=== PATIENT | female | born 1930 | race American Indian/Alaskan Native ===

== ENCOUNTER 2016-12-07 08:00 | Inpatient (IN) | payer MEDICARE, OTHER ==
--- NOTE | 2016-12-07 08:41 | C.PDOC ---
History Of Present Illness 85 year old female presents to the ED accompanied by her family who states the patient appeared confused and had difficulty getting out of bed today. Patient states she felt fine yesterday and went to the gym however she started feeling generalized weakness in the afternoon and developed a mild cough. She has not taken anything for the symptoms and denies vomiting, diarrhea, urinary symptoms , or any other complaints at this time. Time Seen by Provider: 12/07/16 08:24 Chief Complaint (Nursing): Weakness/Neurological Deficit History Per: Patient, Family History/Exam Limitations: no limitations Onset/Duration Of Symptoms: Hrs Current Symptoms Are (Timing): Still Present Seizure Or Post-ictal Symptoms: None Past Medical History Reviewed: Historical Data, Nursing Documentation, Vital Signs Vital Signs: Last Vital Signs Temp 99.1 F 12/07/16 15:15 Pulse 75 12/07/16 15:15 Resp 21 12/07/16 15:15 BP 145/71 12/07/16 15:15 Pulse Ox 95 12/07/16 15:15 - Medical History PMH: Anemia, Arthritis (hx. back surgery; B/L TKR), COPD, HTN, Hypercholesterolemia, Parkinson's Disease - [facility] Procedures EXCISION OF DESCENDING COLON, ENDO, DIAGN (11/02/15) EXCISION OF ESOPHAGUS, ENDO, DIAGN (11/02/15) EXCISION OF STOMACH, ENDO, DIAGN (11/02/15) Family History: States: Unknown Family Hx - Social History Hx Tobacco Use: No Hx Alcohol Use: No Hx Substance Use: No - Immunization History Hx Tetanus Toxoid Vaccination: No Hx Influenza Vaccination: Yes Hx Pneumococcal Vaccination: Yes Review Of Systems Except As Marked, All Systems Reviewed And Found Negative. Constitutional: Positive for: Weakness Cardiovascular: Negative for: Chest Pain, Palpitations Respiratory: Positive for: Cough. Negative for: Shortness of Breath Gastrointestinal: Negative for: Nausea, Vomiting, Abdominal Pain, Diarrhea Genitourinary: Negative for: Dysuria, Frequency Musculoskeletal: Negative for: Back Pain Neurological: Positive for: Confusion Physical Exam - Physical Exam Appears: Non-toxic, No Acute Distress Skin: Normal Color, Warm, Dry Head: Atraumatic, Normacephalic Eye(s): bilateral: Normal Inspection Oral Mucosa: Moist Neck: Supple Chest: Symmetrical, No Deformity Cardiovascular: Rhythm Regular, No Murmur Respiratory: Decreased Breath Sounds (+Decreased breath sounds bilaterally), No Accessory Muscle Use, No Rales, No Rhonchi, No Wheezing Gastrointestinal/Abdominal: Soft, No Tenderness, No Distention, No Guarding, No Rebound Extremity: Normal ROM, No Deformity Neurological/Psych: Oriented x3, Normal Speech, Normal Cranial Nerves, Normal Motor, Normal Sensation, Slow To Respond With Command ED Course And Treatment - Laboratory Results Result Diagrams: 12/07/16 09:32 12/07/16 09:32 ECG: Interpreted By Me ECG Rhythm: Sinus Rhythm ECG Interpretation: No Acute Changes Rate From EC O2 Sat by Pulse Oximetry: 96 (Room air) Pulse Ox Interpretation: Normal - Radiology CXR: Viewed By Me, Read By Radiologist CXR Interpretation: Yes: Other (Mild venous congestion. Patchy increased markings at the left lung base with question trace left pleural effusion. Right infrahilar prominence. Linear atelectasis at the right lung base. Upper lobe granulomatous changes.) Progress Note: CXR, EKG, Blood work, and Urinalysis ordered and reviewed. Patient treated with Avelox, Azactam, Tylenol, and IV fluids. Medical Decision Making Medical Decision Making: Pt remained stable in the ED Code sepsis called, pt cultured and started on abx lactate not elevated results discussed with family Case discussed with dr bhakta Plan admission Disposition - Disposition Disposition: HOSPITALIZED Disposition Time: 11:47 Condition: SERIOUS - Clinical Impression Clinical Impression: Fever, Weakness generalized - Scribe Statement The provider has reviewed the documentation as recorded by the Scribe Portia Jenkins. Provider Attestation: All medical record entries made by the Scribe were at my direction and personally dictated by me. I have reviewed the chart and agree that the record accurately reflects my personal performance of the history, physical exam, medical decision making, and the department course for this patient. I have also personally directed, reviewed, and agree with the discharge instructions and disposition.
[2016-12-07] MEDS ORDERED: Sodium Chloride 0.9% 1,000 ML IV ONE ×2 (08:49→08:50)
[2016-12-07] MEDS ORDERED: Aztreonam 2 GM in Sodium Chloride 0.9% 100 ML IVPB STA (08:51)
[2016-12-07 09:36] LABS: BASO # 0.1 K/uL (0.0-0.2); BASO % 0.5 % (0.0-2.0); HEMATOCRIT 33.5 % (34.0-47.0); LYMPH # 0.9 K/uL (1.0-4.3); LYMPH % 9.4 % (20.0-40.0); MEAN CELL VOLUME 82.7 fL (81.0-99.0); MEAN CORPUSCULAR HEMOGLOBIN 26.5 pg (27.0-31.0); MEAN PLATELET VOLUME 7.1 fL (7.2-11.7); MONO # 0.5 K/uL (0.0-0.8); MONO % 4.7 % (0.0-10.0); PLATELET COUNT 249 K/uL (130-400); RED CELL DISTRIBUTION WIDTH 14.8 % (11.5-14.5)
[2016-12-07 09:40] LABS: VENOUS BLOOD GAS BASE EXCESS 0.1 mmol/L (0.0-2.0); VENOUS BLOOD GAS PCO2 35 mmHg (40-60); VENOUS BLOOD PH 7.44 (7.32-7.43)
[2016-12-07] MEDS ORDERED: Sodium Chloride 0.9% 1,000 ML ONE (09:45)
[2016-12-07 09:47] LABS: INR 1.1
[2016-12-07 09:48] LABS: WHITE BLOOD COUNT 10.1 K/uL (4.8-10.8)
[2016-12-07 09:50] LABS: POTASSIUM 4.3 mmol/L (3.6-5.2)
[2016-12-07 09:52] LABS: ALB/GLOB RATIO 1.1 (1.0-2.1); BILIRUBIN,TOTAL 0.8 mg/dL (0.2-1.3)
[2016-12-07 09:53] LABS: CALCIUM 9.2 mg/dl (8.6-10.4); MAGNESIUM 2.3 mg/dL (1.6-2.3); PHOSPHOROUS 2.6 mg/dL (2.5-4.5)
--- NOTE | 2016-12-07 09:57 | RAD ---
HISTORY: Sepsis Patient COMPARISON: 07/10/2015 FINDINGS: LUNGS: Mild venous congestion. Patchy increased markings at the left lung base with question trace left pleural effusion. Right infrahilar prominence. Linear atelectasis at the right lung base. Upper lobe granulomatous changes. PLEURA: As above. CARDIOVASCULAR: Calcification at the aortic knob. OSSEOUS STRUCTURES: No significant abnormalities. VISUALIZED UPPER ABDOMEN: Normal. OTHER FINDINGS: None. IMPRESSION: Mild venous congestion. Patchy increased markings at the left lung base with question trace left pleural effusion. Right infrahilar prominence. Linear atelectasis at the right lung base. Upper lobe granulomatous changes.
[2016-12-07 10:15] LABS: NEUTROPHIL 85 % (50-75); TOTAL CELLS COUNTED 100
[2016-12-07 10:53] LABS: RBC URINE 2 /hpf (0-3); URINE BACTERIA MANY (<OCC); URINE BILIRUBIN NEGATIVE (NEGATIVE); URINE BLOOD NEGATIVE (NEGATIVE); URINE COLOR Yellow (YELLOW); URINE GLUCOSE (UA) NORMAL (Normal); URINE KETONE NEGATIVE (NEGATIVE); URINE LEUKOCYTE ESTERASE 1+ Leu/uL (Negative); URINE PROTEIN NEGATIVE (NEGATIVE); URINE UROBILINOGEN NORMAL mg/dL (0.2-1.0); WBC URINE 26 /hpf (0-5)
[2016-12-07] MEDS ORDERED: guaiFENesin 100 mg/5 ml Syrup UD PO PRN (12:48)
[2016-12-07 12:51] LABS: VENOUS BLOOD GAS BASE EXCESS -2.1 mmol/L (0.0-2.0); VENOUS BLOOD GAS PCO2 31 mmHg (40-60); VENOUS BLOOD PH 7.44 (7.32-7.43)
[2016-12-07] MEDS ORDERED: Albuterol-Ipratrop 3 mg / 0.5 (3 ml) UD INH STA (13:36)
[2016-12-07] MEDS: Albuterol-Ipratrop 3 mg / 0.5 (3 ml) UD INH SCH ×2 (13:40→19:31)
[2016-12-07] MEDS ORDERED: Acetylcysteine 20% Inhal Soln (4ml) INH STA (13:41)
[2016-12-07] MEDS ORDERED: MethylPREDNISolone 40 mg Vial IVP STA (14:20)
[2016-12-07 14:49] LABS: ABG ALLEN TEST A; ARTERIAL BLOOD HGB O2 SAT 90.8 % (95.0-98.0); CARBOXYHEMOGLOBIN 1.8 % (0.5-1.5); DRAW SITE RRA; METHEMOGLOBIN 1.4 % (0.0-3.0)
[2016-12-07] MEDS ORDERED: Acetylcysteine 20% Inhal Soln (4ml) INH ONE (15:00)
[2016-12-07] MEDS: Fluticasone-Salmeterol 250-50mcg Diskus INH SCH (19:30)
[2016-12-07] MEDS ORDERED: MethylPREDNISolone 40 mg Vial IVP SCH (22:00)
[2016-12-08] MEDS: Albuterol-Ipratrop 3 mg / 0.5 (3 ml) UD INH SCH ×4 (01:02→19:59)
[2016-12-08] MEDS: Fluticasone-Salmeterol 250-50mcg Diskus INH SCH ×2 (07:26→19:59)
[2016-12-08 07:38] LABS: BASO % 0.2 % (0.0-2.0); HEMATOCRIT 32.2 % (34.0-47.0); LYMPH # 0.8 K/uL (1.0-4.3); LYMPH % 7.5 % (20.0-40.0); MEAN CELL VOLUME 82.9 fL (81.0-99.0); MEAN CORPUSCULAR HEMOGLOBIN 27.2 pg (27.0-31.0); MEAN CORPUSCULAR HGB CONC 32.8 g/dL (33.0-37.0); MEAN PLATELET VOLUME 7.3 fL (7.2-11.7); MONO # 0.2 K/uL (0.0-0.8); PLATELET COUNT 237 K/uL (130-400); RED CELL DISTRIBUTION WIDTH 14.7 % (11.5-14.5); WHITE BLOOD COUNT 10.6 K/uL (4.8-10.8)
[2016-12-08 07:57] LABS: POTASSIUM 3.9 mmol/L (3.6-5.2)
[2016-12-08 08:00] LABS: CALCIUM 9.1 mg/dl (8.6-10.4)
[2016-12-08 08:58] LABS: NEUTROPHIL 78 % (50-75); TOTAL CELLS COUNTED 100
[2016-12-08] MEDS: diltiaZEM 300 mg/24 Hours CD Cap PO SCH (09:39)
[2016-12-08] MEDS ORDERED: Enoxaparin 40 mg Syringe SC SCH (10:00)
--- NOTE | 2016-12-08 11:56 | CARD ---
APPROVED REPORT EKG Measurement Heart [id number] <Conclusion> Normal sinus rhythm Left axis deviation Abnormal ECG
[2016-12-08] MEDS ORDERED: Moxifloxacin IV 400mg/250ml NS 400 MG/250 ML BAG IVPB SCH (14:00)
[2016-12-08] MEDS: MethylPREDNISolone 40 mg Vial IVP SCH ×2 (14:27→22:28)
[2016-12-08] MEDS: Aztreonam 1 GM in Sodium Chloride 0.9% 100 ML IVPB SCH ×2 (14:27→22:26)
--- NOTE | 2016-12-08 16:57 | CP.PCM.CON ---
History of Present Illness - History of Present Illness History of Present Illness: INFECTIOUS DISEASE CONSULT; HPI; 85-year-old female with multiple medical problems including history of COPD, hypertension, hypercholesterolemia, parkinsonism, anemia, arthritis with history off back surgery, bilateral total knee replacements was admitted via the emergency room when the family brought her to the ER because of altered mental status and difficulty getting out of the bed this morning. As per family patient was all right day before and went to the gym with her daughter but then started feeling weak in the afternoon and also complained of dry cough. Patient denied any other symptoms off nausea or vomiting, diarrhea or abdominal pain. Patient also denied any dysuria or hesitancy.patient denied any sore throat, postnasal drip Patient was empirically started on IV Cipro 400 every 12 hourly and IV Azactam 1 g every 8 hourly. Infectious disease consultation requested by PMD as urine cultures came back positive for gram-negative nguyen. Chest x-ray on admission of 12/07/16 also showed patchy increased interstitial markings left lung with trace pleural effusion. Right parahilar prominence with right lower lobe atelectasis. Upper lobe granulomatous changes were also seen. Patient denies any previous history of TB or bronchiectasis. She does give history of UTI in the past but denies any history of kidney stones or bladder stones ALLERGIES; NKA. PMH: Anemia, Arthritis (hx. back surgery; B/L TKR), COPD, HTN, Hypercholesterolemia, Parkinson's Disease - [facility] Procedures EXCISION OF DESCENDING COLON, ENDO, DIAGN (11/02/15) EXCISION OF ESOPHAGUS, ENDO, DIAGN (11/02/15) EXCISION OF STOMACH, ENDO, DIAGN (11/02/15) Family History: States: Unknown Family Hx - Social History Hx Tobacco Use: No Hx Alcohol Use: No Hx Substance Use: No - Immunization History Hx Tetanus Toxoid Vaccination: No Hx Influenza Vaccination: Yes Hx Pneumococcal Vaccination: Yes Review of Systems - Constitutional Constitutional: Fever, Lethargy, Malaise, Weakness - EENT Ears: absent: Dizziness Nose/Mouth/Throat: Dry Mouth. absent: Sore Throat, Neck Pain - Cardiovascular Cardiovascular: Dyspnea on Exertion. absent: Chest Pain - Respiratory Respiratory: Cough. absent: Hemoptysis - Gastrointestinal Gastrointestinal: absent: Abdominal Pain, Diarrhea, Nausea, Vomiting - Genitourinary Genitourinary: Freq UTI. absent: Dysuria, Urinary Hesitance, Hx Renal/Bladder Calculi - Neurological Neurological: Confusion. absent: Headaches - Psychiatric Psychiatric: Confusion - Endocrine Endocrine: Fatigue - Hematologic/Lymphatic Hematologic: As Per HPI. absent: Easy Bruising, Lymphadenopathy Past Patient History - Infectious Disease Hx of Infectious Diseases: None - Past Medical History & Family History Past Medical History?: Yes - Past Social History Smoking Status: Never Smoked - CARDIAC Hx Congestive Heart Failure: Yes (Around 10 yrs ago) Hx Hypercholesterolemia: Yes Hx Hypertension: Yes - PULMONARY Hx Chronic Obstructive Pulmonary Disease (COPD): Yes - NEUROLOGICAL Hx Parkinson's Disease: Yes - HEENT Hx Cataracts: Yes (hx, cataract surgery 4 yrs ago) Other/Comment: wear eyeglasses - RENAL Hx Chronic Kidney Disease: No - ENDOCRINE/METABOLIC Hx Diabetes Mellitus Type 2: Yes - HEMATOLOGICAL/ONCOLOGICAL Hx Anemia: Yes - INTEGUMENTARY Hx Dermatological Problems: No - MUSCULOSKELETAL/RHEUMATOLOGICAL Hx Arthritis: Yes (hx. back surgery; B/L TKR) - GASTROINTESTINAL Hx Gastrointestinal Disorders: No - GENITOURINARY/GYNECOLOGICAL Hx Genitourinary Disorders: No - PSYCHIATRIC Hx Substance Use: No - SURGICAL HISTORY Hx Cataract Extraction: Yes Hx Joint Replacement: Yes (Bilateral knee replacement) Other/Comment: Back surgery (Bone fusion), Gallbladder surgery, skin graft surgery left leg, green filter placement - ANESTHESIA Hx Anesthesia: Yes Hx Anesthesia Reactions: No Hx Malignant Hyperthermia: No Meds Allergies/Adverse Reactions: Allergies Allergy/AdvReac Type Severity Reaction Status Date / Time Penicillins Allergy Verified 11/01/15 12:32 - Medications Medications: Current Medications Acetaminophen (Tylenol 325mg Tab) 650 mg PO Q6 PRN PRN Reason: Fever >100.4 F Last Admin: 12/07/16 12:46 Dose: 650 mg Albuterol/Ipratropium (Duoneb 3 Mg/0.5 Mg (3 Ml) Ud) 3 ml INH RQ6 [facility] Last Admin: 12/08/16 13:14 Dose: 3 ml Aspirin (Ecotrin) 81 mg PO DAILY [facility] Last Admin: 12/08/16 09:39 Dose: 81 mg Carbidopa/Levodopa (Sinemet) 1 tab PO DAILY [facility] Last Admin: 12/08/16 09:39 Dose: 1 tab Diltiazem HCl (Cardizem Cd) 300 mg PO DAILY [facility] Last Admin: 04/28/17 09:39 Dose: 300 mg Guaifenesin (Robitussin) 100 mg PO Q4H PRN PRN Reason: Cough Heparin Sodium (Porcine) (Heparin) 5,000 units SC Q12 [facility] Last Admin: 12/08/16 09:38 Dose: 5,000 units Ciprofloxacin (Cipro 400mg/200ml Dsw) 400 mg in 200 mls @ 133 mls/hr IVPB Q12H [facility] Aztreonam 1 gm/ Sodium (Chloride) 100 mls @ 100 mls/hr IVPB Q8H [facility] Last Admin: 12/08/16 14:27 Dose: 100 mls/hr Losartan Potassium (Cozaar) 100 mg PO DAILY [facility] Last Admin: 12/08/16 09:39 Dose: 100 mg Methylprednisolone (Solu-Medrol) 40 mg IVP Q8 [facility] Last Admin: 12/08/16 14:27 Dose: 40 mg Pantoprazole Sodium (Protonix Inj) 40 mg IVP DAILY [facility] Last Admin: 12/08/16 09:38 Dose: 40 mg Rosuvastatin Calcium (Crestor) 5 mg PO HS [facility] Last Admin: 12/07/16 21:25 Dose: 5 mg Fluticasone/Salmeterol (Advair Diskus 250/50) 1 puff INH RQ12 [facility] Last Admin: 12/08/16 07:26 Dose: 1 puff Physical Exam - Constitutional Appears: No Acute Distress - Head Exam Head Exam: NORMAL INSPECTION - Eye Exam Eye Exam: EOMI, PERRL - ENT Exam ENT Exam: Normal Oropharynx - Neck Exam Neck exam: Positive for: Normal Inspection. Negative for: Meningismus - Respiratory Exam Respiratory Exam: Prolonged Expiratory Phase, Rhonchi - Cardiovascular Exam Cardiovascular Exam: REGULAR RHYTHM, +S1, +S2 - GI/Abdominal Exam GI & Abdominal Exam: Normal Bowel Sounds, Soft. absent: Organomegaly, Tenderness - Extremities Exam Extremities exam: Positive for: pedal pulses present. Negative for: calf tenderness, pedal edema - Neurological Exam Neurological exam: Alert, CN II-XII Intact, Reflexes Normal - Psychiatric Exam Psychiatric exam: Normal Mood - Skin Skin Exam: Normal Color, Warm Results - Vital Signs Recent Vital Signs: Last Vital Signs Temp 97.6 F 12/08/16 15:50 Pulse 85 12/08/16 15:50 Resp 20 12/08/16 15:50 BP 154/70 H 12/08/16 15:50 Pulse Ox 94 L 12/08/16 15:50 - Labs Result Diagrams: 12/08/16 07:18 12/08/16 07:18 Labs: Laboratory Results - last 24 hr 12/08/16 12/08/16 07:18 07:18 WBC 10.6 RBC 3.88 Hgb 10.5 L Hct 32.2 L MCV 82.9 MCH 27.2 MCHC 32.8 L RDW 14.7 H Plt Count 237 MPV 7.3 Neut % (Auto) 90.3 H Lymph % (Auto) 7.5 L [place] % (Auto) 2.0 Eos % (Auto) 0.0 Baso % (Auto) 0.2 Neut # 9.6 H Lymph # 0.8 L [place] # 0.2 Eos # 0.0 Baso # 0.0 Neutrophils % (Manual) 78 H Band Neutrophils % 14 H* Lymphocytes % (Manual) 6 L Monocytes % (Manual) 2 Platelet Estimate Normal Hypochromasia (manual) Slight Poikilocytosis (manual Slight Anisocytosis (manual) Slight Sodium 141 Potassium 3.9 Chloride 107 Carbon Dioxide 21 L Anion Gap 17 BUN 23 H Creatinine 1.1 Est GFR ( Amer) 57 Est GFR (Non-Af Amer) 47 Random Glucose 157 H Calcium 9.1 - Imaging and Cardiology Chest x-ray Status: Report reviewed by me (see report.) Assessment & Plan (1) Fever Status: Acute (2) UTI (urinary tract infection) Status: Acute (3) Weakness generalized Status: Acute (4) Pneumonia Status: Suspected (5) Diabetes mellitus Status: Chronic Priority: Low (6) Hypertension Status: Chronic Priority: Low - Assessment and Plan (Free Text) Plan: PLAN; PANCULTURE URINE CULTURE ESR CRP. MRSA SCREEN. ATYPICAL TITERS . CONTINUE iv CIPRO 400 MG EVERY 12 HOURLY 12/08/16 CONTINUE iv AZACTAM 1 G EVERY 8 HOURLY 12/08/16. FOLLOW-UP CULTURES TO ADJUST ANTIBIOTICS. SPUTUM GRAM STAIN AND CULTURE PULMONARY TOILET. CASE DISCUSSED WITH FAMILY AT BEDSIDE. CASE DISCUSSED WITH STAFF ON DUTY.
[2016-12-08] MEDS: Ciprofloxacin 400mg/200ml D5W 400 MG/200 ML BAG IVPB SCH (18:04)
--- NOTE | 2016-12-08 18:37 | CP.PCM.CON ---
History of Present Illness - History of Present Illness History of Present Illness: Reason for consultation: Abnormal chest x-ray and history of bronchiectasis 85-year-old female with previous history of TB, bronchiectasis, COPD, hypertension, hypercholesterolemia, parkinsonism, anemia, arthritis with history off back surgery, bilateral total knee replacements was admitted via the emergency room when the family brought her to the ER because of altered mental status and difficulty getting out of the bed. Patient also complaining of dry cough for the past few days associated with slight shortness of breath. Chest x-ray on admission of 12/07/16 also showed patchy increased interstitial markings left lung with trace pleural effusion. Right parahilar prominence with right lower lobe atelectasis. Upper lobe granulomatous changes were also seen. Patient denies any previous history of TB or bronchiectasis Review of Systems - Review of Systems All systems: reviewed and no additional remarkable complaints except (Cough and slight shortness of breath) Past Patient History - Infectious Disease Hx of Infectious Diseases: None - Past Medical History & Family History Past Medical History?: Yes - Past Social History Smoking Status: Never Smoked - CARDIAC Hx Congestive Heart Failure: Yes (Around 10 yrs ago) Hx Hypercholesterolemia: Yes Hx Hypertension: Yes - PULMONARY Hx Chronic Obstructive Pulmonary Disease (COPD): Yes - NEUROLOGICAL Hx Parkinson's Disease: Yes - HEENT Hx Cataracts: Yes (hx, cataract surgery 4 yrs ago) Other/Comment: wear eyeglasses - RENAL Hx Chronic Kidney Disease: No - ENDOCRINE/METABOLIC Hx Diabetes Mellitus Type 2: Yes - HEMATOLOGICAL/ONCOLOGICAL Hx Anemia: Yes - INTEGUMENTARY Hx Dermatological Problems: No - MUSCULOSKELETAL/RHEUMATOLOGICAL Hx Arthritis: Yes (hx. back surgery; B/L TKR) - GASTROINTESTINAL Hx Gastrointestinal Disorders: No - GENITOURINARY/GYNECOLOGICAL Hx Genitourinary Disorders: No - PSYCHIATRIC Hx Substance Use: No - SURGICAL HISTORY Hx Cataract Extraction: Yes Hx Joint Replacement: Yes (Bilateral knee replacement) Other/Comment: Back surgery (Bone fusion), Gallbladder surgery, skin graft surgery left leg, green filter placement - ANESTHESIA Hx Anesthesia: Yes Hx Anesthesia Reactions: No Hx Malignant Hyperthermia: No Meds Allergies/Adverse Reactions: Allergies Allergy/AdvReac Type Severity Reaction Status Date / Time Penicillins Allergy Verified 11/01/15 12:32 - Medications Medications: Current Medications Acetaminophen (Tylenol 325mg Tab) 650 mg PO Q6 PRN PRN Reason: Fever >100.4 F Last Admin: 12/07/16 12:46 Dose: 650 mg Albuterol/Ipratropium (Duoneb 3 Mg/0.5 Mg (3 Ml) Ud) 3 ml INH RQ6 [facility] Last Admin: 12/08/16 13:14 Dose: 3 ml Aspirin (Ecotrin) 81 mg PO DAILY [facility] Last Admin: 12/08/16 09:39 Dose: 81 mg Carbidopa/Levodopa (Sinemet) 1 tab PO DAILY [facility] Last Admin: 12/08/16 09:39 Dose: 1 tab Diltiazem HCl (Cardizem Cd) 300 mg PO DAILY [facility] Last Admin: 12/08/16 09:39 Dose: 300 mg Guaifenesin (Robitussin) 100 mg PO Q4H PRN PRN Reason: Cough Heparin Sodium (Porcine) (Heparin) 5,000 units SC Q12 [facility] Last Admin: 12/08/16 09:38 Dose: 5,000 units Ciprofloxacin (Cipro 400mg/200ml Dsw) 400 mg in 200 mls @ 133 mls/hr IVPB Q12H [facility] Last Admin: 12/08/16 18:04 Dose: 133 mls/hr Aztreonam 1 gm/ Sodium (Chloride) 100 mls @ 100 mls/hr IVPB Q8H [facility] Last Admin: 12/08/16 14:27 Dose: 100 mls/hr Losartan Potassium (Cozaar) 100 mg PO DAILY [facility] Last Admin: 12/08/16 09:39 Dose: 100 mg Methylprednisolone (Solu-Medrol) 40 mg IVP Q8 [facility] Last Admin: 12/08/16 14:27 Dose: 40 mg Pantoprazole Sodium (Protonix Inj) 40 mg IVP DAILY [facility] Last Admin: 12/08/16 09:38 Dose: 40 mg Rosuvastatin Calcium (Crestor) 5 mg PO HS [facility] Last Admin: 12/07/16 21:25 Dose: 5 mg Fluticasone/Salmeterol (Advair Diskus 250/50) 1 puff INH RQ12 [facility] Last Admin: 12/08/16 07:26 Dose: 1 puff Physical Exam - Head Exam Head Exam: ATRAUMATIC, NORMOCEPHALIC - Eye Exam Eye Exam: Normal appearance - ENT Exam ENT Exam: Mucous Membranes Moist - Neck Exam Neck exam: Positive for: Normal Inspection - Respiratory Exam Respiratory Exam: Decreased Breath Sounds - Cardiovascular Exam Cardiovascular Exam: REGULAR RHYTHM - GI/Abdominal Exam GI & Abdominal Exam: Normal Bowel Sounds, Soft - Extremities Exam Extremities exam: Positive for: normal inspection - Neurological Exam Neurological exam: Alert, Oriented x3 Results - Vital Signs Recent Vital Signs: Last Vital Signs Temp 97.6 F 12/08/16 15:50 Pulse 85 12/08/16 15:50 Resp 20 12/08/16 15:50 BP 154/70 H 12/08/16 15:50 Pulse Ox 94 L 12/08/16 15:50 - Labs Result Diagrams: 12/09/16 08:48 12/08/16 07:18 Labs: Laboratory Results - last 24 hr 12/08/16 12/08/16 07:18 07:18 WBC 10.6 RBC 3.88 Hgb 10.5 L Hct 32.2 L MCV 82.9 MCH 27.2 MCHC 32.8 L RDW 14.7 H Plt Count 237 MPV 7.3 Neut % (Auto) 90.3 H Lymph % (Auto) 7.5 L [place] % (Auto) 2.0 Eos % (Auto) 0.0 Baso % (Auto) 0.2 Neut # 9.6 H Lymph # 0.8 L [place] # 0.2 Eos # 0.0 Baso # 0.0 Neutrophils % (Manual) 78 H Band Neutrophils % 14 H* Lymphocytes % (Manual) 6 L Monocytes % (Manual) 2 Platelet Estimate Normal Hypochromasia (manual) Slight Poikilocytosis (manual Slight Anisocytosis (manual) Slight Sodium 141 Potassium 3.9 Chloride 107 Carbon Dioxide 21 L Anion Gap 17 BUN 23 H Creatinine 1.1 Est GFR ( Amer) 57 Est GFR (Non-Af Amer) 47 Random Glucose 157 H Calcium 9.1 Assessment & Plan (1) Lung infiltrate Status: Acute Comment: Patient with previous history of TB and bronchiectasis presented with change in mental status which most likely secondary to urinary tract infection. Unlikely pneumonia, patient complaining of dry cough. Continue antibiotics as per infectious disease. Consider to discontinue Advair and continue nebulizer treatment (2) UTI (urinary tract infection) Status: Acute
--- NOTE | 2016-12-09 00:14 | CP.PCM.HP ---
History of Present Illness - History of Present Illness History of Present Illness: Fiorellaif complain: cough, Shortness of breath x 1 day 85 year old AA female well known to me with PMH significant for COPD, hypertension, hypercholesterolemia, parkinsonism, anemia, arthritis with history off back surgery, bilateral total knee replacements , who is complaint with diet, medications and follow up presents to the ED accompanied by her family who states the patient appeared confused and had difficulty getting out of bed today. Patient states she felt fine yesterday and went to the gym however she started feeling generalized weakness in the afternoon and developed a mild cough associated with congestion, wheezing and shortness of breath, generalizzed weakness, anorexia, mailase, poor apetite. She has not taken anything for the symptoms and denies nasal congestion, itchy eyes, itchy nose, vomiting, diarrhea, urinary symptoms, or any other complaints at this time.Patient also denied any dysuria or hesitancy. Present on Admission - Present on Admission Any Indicators Present on Admission: No Review of Systems - Review of Systems Systems not reviewed;Unavailable: Acuity of Condition - Constitutional Constitutional: Anorexia, Chills, Fatigue, Lethargy - EENT Eyes: absent: As Per HPI, Blind Spots, Blurred Vision, Change in Vision, Decreased Night Vision, Diplopia, Discharge, Dry Eye, Exophthalmos, Floaters, Irritation, Itchy Eyes, Loss of Peripheral Vision, Pain, Photophobia, Requires Corrective Lenses, Sees Flashes, Spots in Vision, Tunnel Vision, Other Visual Disturbances, Loss of Vision, Other Nose/Mouth/Throat: absent: As Per HPI, Epistaxis, Nasal Congestion, Nasal Discharge, Nasal Obstruction, Nasal Trauma, Nose Pain, Post Nasal Drip, Sinus Pain, Sinus Pressure, Bleeding Gums, Change in Voice, Dental Pain, Dry Mouth, Dysphagia, Halitosis, Hoarsness, Lip Swelling, Mouth Lesions, Mouth Pain, Odynophagia, Sore Throat, Throat Swelling, Tongue Swelling, Facial Pain, Neck Pain, Neck Mass, Other - Cardiovascular Cardiovascular: absent: As Per HPI, Acrocyanosis, Chest Pain, Chest Pain at Rest , Chest Pain with Activity, Claudication, Diaphoresis, Dyspnea, Dyspnea on Exertion, Edema, Irregular Heart Rhythm, Pain Radiating to Arm/Neck/Jaw, Leg Edema, Leg Ulcers, Lightheadedness, Orthopnea, Palpitations, Paroxysmal Nocturnal Dyspnea, Pedal Edema, Radiating Pain, Rapid Heart Rate, Slow Heart Rate, Syncope, Other - Respiratory Respiratory: Cough, Dyspnea, Dyspnea on Exertion, Wheezing - Gastrointestinal Gastrointestinal: absent: As Per HPI, Abdominal Pain, Belching, Bloating, Change in Bowel Habits, Change in Stool Character, Coffee Ground Emesis, Constipation, Cramping, Diarrhea, Dyspepsia, Dysphagia, Early Satiety, Excessive Flatus, Fecal Incontinence, Heartburn, Hematemesis, Hematochezia, Loose Stools, Melena, Nausea, Odynophagia, Temesmus, Vomiting, Other Past Patient History - Infectious Disease Hx of Infectious Diseases: None - Past Medical History & Family History Past Medical History?: Yes - Past Social History Smoking Status: Never Smoked - CARDIAC Hx Congestive Heart Failure: Yes (Around 10 yrs ago) Hx Hypercholesterolemia: Yes Hx Hypertension: Yes - PULMONARY Hx Chronic Obstructive Pulmonary Disease (COPD): Yes - NEUROLOGICAL Hx Parkinson's Disease: Yes - HEENT Hx Cataracts: Yes (hx, cataract surgery 4 yrs ago) Other/Comment: wear eyeglasses - RENAL Hx Chronic Kidney Disease: No - ENDOCRINE/METABOLIC Hx Diabetes Mellitus Type 2: Yes - HEMATOLOGICAL/ONCOLOGICAL Hx Anemia: Yes - INTEGUMENTARY Hx Dermatological Problems: No - MUSCULOSKELETAL/RHEUMATOLOGICAL Hx Arthritis: Yes (hx. back surgery; B/L TKR) - GASTROINTESTINAL Hx Gastrointestinal Disorders: No - GENITOURINARY/GYNECOLOGICAL Hx Genitourinary Disorders: No - PSYCHIATRIC Hx Substance Use: No - SURGICAL HISTORY Hx Cataract Extraction: Yes Hx Joint Replacement: Yes (Bilateral knee replacement) Other/Comment: Back surgery (Bone fusion), Gallbladder surgery, skin graft surgery left leg, green filter placement - ANESTHESIA Hx Anesthesia: Yes Hx Anesthesia Reactions: No Hx Malignant Hyperthermia: No Meds Home Medications: Home Medication List Medication Instructions Recorded Confirmed Type Acetaminophen [Tylenol 325mg tab] 650 mg PO Q6 PRN tab 12/13/16 Rx Acetylcysteine 20% 4 ml INH RQ6 12/13/16 Rx Albuterol/Ipratropium [Duoneb 3 3 ml INH RQ6 12/13/16 Rx mg/0.5 mg (3 ml) UD] Aspirin [Ecotrin] 81 mg PO DAILY 12/13/16 Rx Carbidopa/Levodopa 25/100 mg 1 tab PO DAILY tab 12/13/16 Rx [Sinemet] Losartan [Cozaar] 100 mg PO DAILY tab 12/13/16 Rx Rosuvastatin Calcium [Crestor] 5 mg PO HS tab 12/13/16 Rx diltiaZEM CD [Cardizem CD] 300 mg PO DAILY cap 12/13/16 Rx guaiFENesin [Mucinex LA] 600 mg PO BID tab 12/13/16 Rx Allergies/Adverse Reactions: Allergies Allergy/AdvReac Type Severity Reaction Status Date / Time Penicillins Allergy Verified 11/01/15 12:32 Physical Exam - Constitutional Appears: No Acute Distress - Head Exam Head Exam: ATRAUMATIC, NORMAL INSPECTION, NORMOCEPHALIC - Eye Exam Eye Exam: EOMI, Normal appearance, PERRL Pupil Exam: NORMAL ACCOMODATION, PERRL - Respiratory Exam Respiratory Exam: Decreased Breath Sounds, Rales, Wheezes - Cardiovascular Exam Cardiovascular Exam: REGULAR RHYTHM, +S1, +S2 - GI/Abdominal Exam GI & Abdominal Exam: Normal Bowel Sounds, Soft. absent: Tenderness Results - Vital Signs Recent Vital Signs: Last Vital Signs Temp 98.1 F 12/08/16 22:20 Pulse 90 12/08/16 22:20 Resp 20 12/08/16 22:20 BP 125/64 12/08/16 22:20 Pulse Ox 94 L 12/08/16 22:20 - Labs Result Diagrams: 12/11/16 11:22 12/11/16 11:22 Labs: Laboratory Results - last 24 hr 12/08/16 12/08/16 07:18 07:18 WBC 10.6 RBC 3.88 Hgb 10.5 L Hct 32.2 L MCV 82.9 MCH 27.2 MCHC 32.8 L RDW 14.7 H Plt Count 237 MPV 7.3 Neut % (Auto) 90.3 H Lymph % (Auto) 7.5 L Cottle % (Auto) 2.0 Eos % (Auto) 0.0 Baso % (Auto) 0.2 Neut # 9.6 H Lymph # 0.8 L Cottle # 0.2 Eos # 0.0 Baso # 0.0 Neutrophils % (Manual) 78 H Band Neutrophils % 14 H* Lymphocytes % (Manual) 6 L Monocytes % (Manual) 2 Platelet Estimate Normal Hypochromasia (manual) Slight Poikilocytosis (manual Slight Anisocytosis (manual) Slight Sodium 141 Potassium 3.9 Chloride 107 Carbon Dioxide 21 L Anion Gap 17 BUN 23 H Creatinine 1.1 Est GFR ( Amer) 57 Est GFR (Non-Af Amer) 47 Random Glucose 157 H Calcium 9.1 Assessment & Plan (1) Pneumonia Assessment and Plan: RULE OUT PNEUMONIA Chest x-ray on admission of 12/07/16 also showed patchy increased interstitial markings left lung with trace pleural effusion. Right parahilar prominence with right lower lobe atelectasis. Upper lobe granulomatous changes were also seen. Patient denies any previous history of TB or bronchiectasis. Status: Suspected (2) Weakness generalized Status: Acute (3) COPD exacerbation Status: Acute Priority: High (4) Diabetes mellitus Status: Chronic Priority: Low (5) Hypertension Status: Chronic Priority: Low (6) UTI (urinary tract infection) Assessment and Plan: Patient was empirically started on IV Cipro 400 every 12 hourly and IV Azactam 1 g every 8 hourly. Infectious disease consultation was called as urine cultures came back positive for gram-negative nguyen. He does give history of UTI in the past but denies any history of kidney stones or bladder stones Status: Acute
--- NOTE | 2016-12-09 00:34 | CP.PCM.PN ---
Subjective - Date & Time of Evaluation Date of Evaluation: 12/08/16 Time of Evaluation: 10:02 - Subjective Subjective: PT SEEN AND EXAMINED AT BEDSIDE LESS COUGH, LESS SHORT OF BREATH, LOOKS WEAK AND LETHARGIC, ALSO SEEN BY ID AND PULMONARY Objective - Vital Signs/Intake and Output Vital Signs (last 24 hours): Temp Pulse Resp BP Pulse Ox 98.1 F 90 20 125/64 94 L 12/08/16 22:20 12/08/16 22:20 12/08/16 22:20 12/08/16 22:20 12/08/16 22:20 Intake and Output: 12/08/16 12/09/16 18:59 06:59 Intake Total 450 100 Balance 450 100 - Medications Medications: Current Medications Acetaminophen (Tylenol 325mg Tab) 650 mg PO Q6 PRN PRN Reason: Fever >100.4 F Last Admin: 12/07/16 12:46 Dose: 650 mg Albuterol/Ipratropium (Duoneb 3 Mg/0.5 Mg (3 Ml) Ud) 3 ml INH RQ6 [facility] Last Admin: 12/08/16 19:59 Dose: 3 ml Aspirin (Ecotrin) 81 mg PO DAILY [facility] Last Admin: 12/08/16 09:39 Dose: 81 mg Carbidopa/Levodopa (Sinemet) 1 tab PO DAILY [facility] Last Admin: 12/08/16 09:39 Dose: 1 tab Diltiazem HCl (Cardizem Cd) 300 mg PO DAILY [facility] Last Admin: 12/08/16 09:39 Dose: 300 mg Guaifenesin (Robitussin) 100 mg PO Q4H PRN PRN Reason: Cough Heparin Sodium (Porcine) (Heparin) 5,000 units SC Q12 [facility] Last Admin: 12/08/16 22:29 Dose: 5,000 units Ciprofloxacin (Cipro 400mg/200ml Dsw) 400 mg in 200 mls @ 133 mls/hr IVPB Q12H [facility] Last Admin: 12/08/16 18:04 Dose: 133 mls/hr Aztreonam 1 gm/ Sodium (Chloride) 100 mls @ 100 mls/hr IVPB Q8H [facility] Last Admin: 12/08/16 22:26 Dose: 100 mls/hr Losartan Potassium (Cozaar) 100 mg PO DAILY [facility] Last Admin: 12/08/16 09:39 Dose: 100 mg Methylprednisolone (Solu-Medrol) 40 mg IVP Q8 [facility] Last Admin: 12/08/16 22:28 Dose: 40 mg Pantoprazole Sodium (Protonix Inj) 40 mg IVP DAILY [facility] Last Admin: 12/08/16 09:38 Dose: 40 mg Rosuvastatin Calcium (Crestor) 5 mg PO HS [facility] Last Admin: 12/08/16 22:29 Dose: 5 mg Fluticasone/Salmeterol (Advair Diskus 250/50) 1 puff INH RQ12 [facility] Last Admin: 12/08/16 19:59 Dose: 1 puff - Labs Labs: 12/08/16 07:18 12/08/16 07:18 PT 12.4 SECONDS (9.7-12.2) H 12/07/16 09:32 INR 1.1 12/07/16 09:32 APTT 30 SECONDS (21-34) 12/07/16 09:32 - Constitutional Appears: No Acute Distress - Head Exam Head Exam: ATRAUMATIC, NORMAL INSPECTION, NORMOCEPHALIC - Respiratory Exam Respiratory Exam: Decreased Breath Sounds, Rales, Rhonchi - Cardiovascular Exam Cardiovascular Exam: REGULAR RHYTHM, +S1, +S2. absent: Murmur - GI/Abdominal Exam GI & Abdominal Exam: Soft, Normal Bowel Sounds. absent: Tenderness Assessment and Plan (1) Pneumonia Status: Suspected (2) Weakness generalized Status: Acute (3) COPD exacerbation Status: Acute (4) Diabetes mellitus Status: Chronic (5) Hypertension Status: Chronic (6) UTI (urinary tract infection) Status: Acute
[2016-12-09] MEDS: MethylPREDNISolone 40 mg Vial IVP SCH ×3 (05:08→21:44)
[2016-12-09] MEDS: Aztreonam 1 GM in Sodium Chloride 0.9% 100 ML IVPB SCH ×3 (05:31→21:46)
[2016-12-09] MEDS: Ciprofloxacin 400mg/200ml D5W 400 MG/200 ML BAG IVPB SCH ×2 (06:48→17:39)
[2016-12-09] MEDS: Fluticasone-Salmeterol 250-50mcg Diskus INH SCH ×2 (08:00→19:37)
[2016-12-09] MEDS: Albuterol-Ipratrop 3 mg / 0.5 (3 ml) UD INH SCH ×3 (08:00→19:37)
[2016-12-09 08:58] LABS: BASO % 0.1 % (0.0-2.0); HEMATOCRIT 28.9 % (34.0-47.0); LYMPH # 0.6 K/uL (1.0-4.3); LYMPH % 4.8 % (20.0-40.0); MEAN CELL VOLUME 81.8 fL (81.0-99.0); MEAN CORPUSCULAR HEMOGLOBIN 27.2 pg (27.0-31.0); MEAN CORPUSCULAR HGB CONC 33.2 g/dL (33.0-37.0); MEAN PLATELET VOLUME 7.4 fL (7.2-11.7); MONO # 0.3 K/uL (0.0-0.8); MONO % 2.8 % (0.0-10.0); PLATELET COUNT 234 K/uL (130-400); RED CELL DISTRIBUTION WIDTH 14.7 % (11.5-14.5)
[2016-12-09 09:08] LABS: POTASSIUM 3.5 mmol/L (3.6-5.2)
[2016-12-09 09:11] LABS: CALCIUM 9.1 mg/dl (8.6-10.4)
--- NOTE | 2016-12-09 09:16 | CP.PCM.PN ---
Subjective - Date & Time of Evaluation Date of Evaluation: 12/09/16 Time of Evaluation: 09:15 - Subjective Subjective: Patient seen and examined. Patient condition slightly better Afebrile Being treated for his urinary tract infection by infectious disease Continue pulmonary toilet Continue nebulizer treatment Objective - Vital Signs/Intake and Output Vital Signs (last 24 hours): Temp Pulse Resp BP Pulse Ox 97.6 F 68 20 147/60 95 12/09/16 07:37 12/09/16 07:37 12/09/16 07:37 12/09/16 07:37 12/09/16 07:37 Intake and Output: 12/09/16 12/09/16 06:59 18:59 Intake Total 350 Balance 350 - Medications Medications: Current Medications Acetaminophen (Tylenol 325mg Tab) 650 mg PO Q6 PRN PRN Reason: Fever >100.4 F Last Admin: 12/07/16 12:46 Dose: 650 mg Albuterol/Ipratropium (Duoneb 3 Mg/0.5 Mg (3 Ml) Ud) 3 ml INH RQ6 [facility] Last Admin: 12/08/16 19:59 Dose: 3 ml Aspirin (Ecotrin) 81 mg PO DAILY [facility] Last Admin: 12/08/16 09:39 Dose: 81 mg Carbidopa/Levodopa (Sinemet) 1 tab PO DAILY [facility] Last Admin: 12/08/16 09:39 Dose: 1 tab Diltiazem HCl (Cardizem Cd) 300 mg PO DAILY [facility] Last Admin: 12/08/16 09:39 Dose: 300 mg Guaifenesin (Robitussin) 100 mg PO Q4H PRN PRN Reason: Cough Heparin Sodium (Porcine) (Heparin) 5,000 units SC Q12 [facility] Last Admin: 12/08/16 22:29 Dose: 5,000 units Ciprofloxacin (Cipro 400mg/200ml Dsw) 400 mg in 200 mls @ 133 mls/hr IVPB Q12H [facility] Last Admin: 12/09/16 06:48 Dose: 133 mls/hr Aztreonam 1 gm/ Sodium (Chloride) 100 mls @ 100 mls/hr IVPB Q8H [facility] Last Admin: 12/09/16 05:31 Dose: 100 mls/hr Losartan Potassium (Cozaar) 100 mg PO DAILY [facility] Last Admin: 12/08/16 09:39 Dose: 100 mg Methylprednisolone (Solu-Medrol) 40 mg IVP Q8 [facility] Last Admin: 12/09/16 05:08 Dose: 40 mg Pantoprazole Sodium (Protonix Inj) 40 mg IVP DAILY [facility] Last Admin: 12/08/16 09:38 Dose: 40 mg Rosuvastatin Calcium (Crestor) 5 mg PO HS [facility] Last Admin: 12/08/16 22:29 Dose: 5 mg Fluticasone/Salmeterol (Advair Diskus 250/50) 1 puff INH RQ12 [facility] Last Admin: 12/08/16 19:59 Dose: 1 puff - Labs Labs: 12/09/16 08:48 12/09/16 08:48 PT 12.4 SECONDS (9.7-12.2) H 12/07/16 09:32 INR 1.1 12/07/16 09:32 APTT 30 SECONDS (21-34) 12/07/16 09:32 Assessment and Plan (1) Lung infiltrate Status: Acute (2) UTI (urinary tract infection) Status: Acute
[2016-12-09] MEDS: diltiaZEM 300 mg/24 Hours CD Cap PO SCH (10:23)
[2016-12-09 12:45] LABS: NEUTROPHIL 89 % (50-75); TOTAL CELLS COUNTED 100
[2016-12-09 12:46] LABS: LARGE PLATELETS PRESENT
--- NOTE | 2016-12-09 13:59 | CP.PCM.PN ---
Subjective - Date & Time of Evaluation Date of Evaluation: 12/09/16 Time of Evaluation: 13:59 - Subjective Subjective: AFEBRILE, FEELING SLIGHTLY BETTER. GETTING NEBULISER RX . SEEN BY PULMONARY DAUGHTER AT BEDSIDE. URINE CULTURES >100,000CFU/ML E.COLI S-AZACTAM. Objective - Vital Signs/Intake and Output Vital Signs (last 24 hours): Temp Pulse Resp BP Pulse Ox 97.6 F 68 20 147/60 95 12/09/16 07:37 12/09/16 07:37 12/09/16 07:37 12/09/16 07:37 12/09/16 07:37 Intake and Output: 12/09/16 12/09/16 06:59 18:59 Intake Total 350 Balance 350 - Medications Medications: Current Medications Acetaminophen (Tylenol 325mg Tab) 650 mg PO Q6 PRN PRN Reason: Fever >100.4 F Last Admin: 12/07/16 12:46 Dose: 650 mg Albuterol/Ipratropium (Duoneb 3 Mg/0.5 Mg (3 Ml) Ud) 3 ml INH RQ6 [facility] Last Admin: 12/09/16 08:00 Dose: Not Given Aspirin (Ecotrin) 81 mg PO DAILY [facility] Last Admin: 12/09/16 10:24 Dose: 81 mg Carbidopa/Levodopa (Sinemet) 1 tab PO DAILY [facility] Last Admin: 12/09/16 10:24 Dose: 1 tab Diltiazem HCl (Cardizem Cd) 300 mg PO DAILY [facility] Last Admin: 12/09/16 10:23 Dose: 300 mg Guaifenesin (Robitussin) 100 mg PO Q4H PRN PRN Reason: Cough Heparin Sodium (Porcine) (Heparin) 5,000 units SC Q12 [facility] Last Admin: 12/09/16 10:24 Dose: 5,000 units Ciprofloxacin (Cipro 400mg/200ml Dsw) 400 mg in 200 mls @ 133 mls/hr IVPB Q12H [facility] Last Admin: 12/09/16 06:48 Dose: 133 mls/hr Aztreonam 1 gm/ Sodium (Chloride) 100 mls @ 100 mls/hr IVPB Q8H [facility] Last Admin: 12/09/16 13:39 Dose: 100 mls/hr Losartan Potassium (Cozaar) 100 mg PO DAILY [facility] Last Admin: 12/09/16 10:24 Dose: 100 mg Methylprednisolone (Solu-Medrol) 40 mg IVP Q8 [facility] Last Admin: 12/09/16 13:39 Dose: 40 mg Pantoprazole Sodium (Protonix Inj) 40 mg IVP DAILY [facility] Last Admin: 12/09/16 10:24 Dose: 40 mg Rosuvastatin Calcium (Crestor) 5 mg PO HS [facility] Last Admin: 12/08/16 22:29 Dose: 5 mg Fluticasone/Salmeterol (Advair Diskus 250/50) 1 puff INH RQ12 [facility] Last Admin: 12/09/16 08:00 Dose: Not Given - Labs Labs: 12/09/16 08:48 12/09/16 08:48 PT 12.4 SECONDS (9.7-12.2) H 12/07/16 09:32 INR 1.1 12/07/16 09:32 APTT 30 SECONDS (21-34) 12/07/16 09:32 - Constitutional Appears: No Acute Distress - Head Exam Head Exam: NORMAL INSPECTION - Eye Exam Eye Exam: EOMI, PERRL - ENT Exam ENT Exam: Mucous Membranes Moist, Normal Oropharynx - Respiratory Exam Respiratory Exam: Prolonged Expiratory Phase, Rhonchi - Cardiovascular Exam Cardiovascular Exam: REGULAR RHYTHM, +S1, +S2 - GI/Abdominal Exam GI & Abdominal Exam: Soft, Normal Bowel Sounds. absent: Organomegaly - Extremities Exam Extremities Exam: Normal Capillary Refill. absent: Calf Tenderness, Pedal Edema - Neurological Exam Neurological Exam: Awake, CN II-XII Intact, Oriented x3, Reflexes Normal - Psychiatric Exam Psychiatric exam: Normal Mood - Skin Skin Exam: Normal Color, Warm Assessment and Plan (1) Fever Status: Acute (2) UTI (urinary tract infection) Status: Acute (3) Weakness generalized Status: Acute (4) Pneumonia Status: Suspected (5) Diabetes mellitus Status: Chronic (6) Hypertension Status: Chronic - Assessment and Plan (Free Text) Plan: CONTINUE iv CIPRO 400 MG EVERY 12 HOURLY 12/08/16 CONTINUE iv AZACTAM 1 G EVERY 8 HOURLY 12/08/16.FOR UROSEPSIS FOLLOW-UP CULTURES TO ADJUST ANTIBIOTICS. SPUTUM GRAM STAIN AND CULTURE PULMONARY TOILET.
[2016-12-09] MEDS: Potassium Chloride 20 mEq ER Tab PO SCH (14:19)
--- NOTE | 2016-12-10 01:20 | CP.PCM.PN ---
Subjective - Date & Time of Evaluation Date of Evaluation: 12/09/16 Time of Evaluation: 10:02 - Subjective Subjective: PT SEEN AND EXAMINED, LESS SOUGH, LESS SOB, AFEBRILE GETTING NEBULISER RX . ALSO SEEN BY PULMONARY DAUGHTER AT BEDSIDE. URINE CULTURES >100,000CFU/ML E.COLI S-AZACTAM. Objective - Vital Signs/Intake and Output Vital Signs (last 24 hours): Temp Pulse Resp BP Pulse Ox 97.7 F 56 L 18 127/70 94 L 12/09/16 23:30 12/09/16 23:30 12/09/16 23:30 12/09/16 23:30 12/09/16 23:30 Intake and Output: 12/09/16 12/10/16 18:59 06:59 Intake Total 860 100 Balance 860 100 - Medications Medications: Current Medications Acetaminophen (Tylenol 325mg Tab) 650 mg PO Q6 PRN PRN Reason: Fever >100.4 F Last Admin: 12/07/16 12:46 Dose: 650 mg Albuterol/Ipratropium (Duoneb 3 Mg/0.5 Mg (3 Ml) Ud) 3 ml INH RQ6 [facility] Last Admin: 12/09/16 19:37 Dose: 3 ml Aspirin (Ecotrin) 81 mg PO DAILY [facility] Last Admin: 12/09/16 10:24 Dose: 81 mg Carbidopa/Levodopa (Sinemet) 1 tab PO DAILY [facility] Last Admin: 12/09/16 10:24 Dose: 1 tab Diltiazem HCl (Cardizem Cd) 300 mg PO DAILY [facility] Last Admin: 12/09/16 10:23 Dose: 300 mg Guaifenesin (Robitussin) 100 mg PO Q4H PRN PRN Reason: Cough Heparin Sodium (Porcine) (Heparin) 5,000 units SC Q12 [facility] Last Admin: 12/09/16 21:45 Dose: 5,000 units Ciprofloxacin (Cipro 400mg/200ml Dsw) 400 mg in 200 mls @ 133 mls/hr IVPB Q12H [facility] Last Admin: 12/09/16 17:39 Dose: 133 mls/hr Aztreonam 1 gm/ Sodium (Chloride) 100 mls @ 100 mls/hr IVPB Q8H [facility] Last Admin: 12/09/16 21:46 Dose: 100 mls/hr Losartan Potassium (Cozaar) 100 mg PO DAILY [facility] Last Admin: 12/09/16 10:24 Dose: 100 mg Methylprednisolone (Solu-Medrol) 40 mg IVP Q8 [facility] Last Admin: 12/09/16 21:44 Dose: 40 mg Pantoprazole Sodium (Protonix Inj) 40 mg IVP DAILY [facility] Last Admin: 12/09/16 10:24 Dose: 40 mg Potassium Chloride (K-Dur 20 Meq Er Tab) 40 meq PO DAILY [facility] Last Admin: 12/09/16 14:19 Dose: 40 meq Rosuvastatin Calcium (Crestor) 5 mg PO HS [facility] Last Admin: 12/09/16 21:46 Dose: 5 mg Fluticasone/Salmeterol (Advair Diskus 250/50) 1 puff INH RQ12 [facility] Last Admin: 12/09/16 19:37 Dose: Not Given - Labs Labs: 12/09/16 08:48 12/09/16 08:48 PT 12.4 SECONDS (9.7-12.2) H 12/07/16 09:32 INR 1.1 12/07/16 09:32 APTT 30 SECONDS (21-34) 12/07/16 09:32 - Constitutional Appears: No Acute Distress - Head Exam Head Exam: ATRAUMATIC, NORMAL INSPECTION, NORMOCEPHALIC - Eye Exam Eye Exam: EOMI, Normal appearance, PERRL Pupil Exam: NORMAL ACCOMODATION, PERRL - Respiratory Exam Respiratory Exam: Decreased Breath Sounds, Wheezes - Cardiovascular Exam Cardiovascular Exam: REGULAR RHYTHM, +S1, +S2. absent: Murmur - GI/Abdominal Exam GI & Abdominal Exam: Soft, Normal Bowel Sounds. absent: Tenderness Assessment and Plan (1) Pneumonia Status: Suspected (2) Weakness generalized Status: Acute (3) COPD exacerbation Status: Acute (4) Diabetes mellitus Status: Chronic (5) Hypertension Status: Chronic (6) UTI (urinary tract infection) Status: Acute
[2016-12-10] MEDS: Albuterol-Ipratrop 3 mg / 0.5 (3 ml) UD INH SCH ×4 (01:42→20:44)
[2016-12-10] MEDS: MethylPREDNISolone 40 mg Vial IVP SCH ×3 (05:40→21:10)
[2016-12-10] MEDS: Aztreonam 1 GM in Sodium Chloride 0.9% 100 ML IVPB SCH ×2 (05:41→13:32)
[2016-12-10] MEDS: Ciprofloxacin 400mg/200ml D5W 400 MG/200 ML BAG IVPB SCH ×2 (05:41→18:54)
[2016-12-10] MEDS: Fluticasone-Salmeterol 250-50mcg Diskus INH SCH ×2 (07:58→20:44)
[2016-12-10] MEDS: Potassium Chloride 20 mEq ER Tab PO SCH (09:52)
[2016-12-10] MEDS: diltiaZEM 300 mg/24 Hours CD Cap PO SCH (09:53)
--- NOTE | 2016-12-10 23:29 | CP.PCM.PN ---
Subjective - Date & Time of Evaluation Date of Evaluation: 12/10/16 Time of Evaluation: 10:03 - Subjective Subjective: PT SEEN AND EXAMINED,IMPROVING, LESS SOUGH, LESS SOB, AFEBRILE Objective - Vital Signs/Intake and Output Vital Signs (last 24 hours): Temp Pulse Resp BP Pulse Ox 97.2 F L 72 20 129/69 96 12/10/16 15:00 12/10/16 15:00 12/10/16 15:00 12/10/16 15:00 12/10/16 15:00 Intake and Output: 12/10/16 12/11/16 18:59 06:59 Intake Total 470 Balance 470 - Medications Medications: Current Medications Acetaminophen (Tylenol 325mg Tab) 650 mg PO Q6 PRN PRN Reason: Fever >100.4 F Last Admin: 12/10/16 16:30 Dose: 650 mg Albuterol/Ipratropium (Duoneb 3 Mg/0.5 Mg (3 Ml) Ud) 3 ml INH RQ6 [facility] Last Admin: 12/10/16 20:44 Dose: 3 ml Aspirin (Ecotrin) 81 mg PO DAILY [facility] Last Admin: 12/10/16 09:52 Dose: 81 mg Carbidopa/Levodopa (Sinemet) 1 tab PO DAILY [facility] Last Admin: 12/10/16 09:52 Dose: 1 tab Diltiazem HCl (Cardizem Cd) 300 mg PO DAILY [facility] Last Admin: 12/10/16 09:53 Dose: 300 mg Guaifenesin (Robitussin) 100 mg PO Q4H PRN PRN Reason: Cough Ciprofloxacin (Cipro 400mg/200ml Dsw) 400 mg in 200 mls @ 133 mls/hr IVPB Q12H [facility] Last Admin: 12/10/16 18:54 Dose: 133 mls/hr Aztreonam 1 gm/ Sodium (Chloride) 100 mls @ 100 mls/hr IVPB Q8H [facility] Last Admin: 12/10/16 13:32 Dose: 100 mls/hr Losartan Potassium (Cozaar) 100 mg PO DAILY [facility] Last Admin: 12/10/16 09:52 Dose: 100 mg Methylprednisolone (Solu-Medrol) 40 mg IVP Q8 [facility] Last Admin: 12/10/16 21:10 Dose: 40 mg Pantoprazole Sodium (Protonix Inj) 40 mg IVP DAILY [facility] Last Admin: 12/10/16 09:54 Dose: 40 mg Potassium Chloride (K-Dur 20 Meq Er Tab) 40 meq PO DAILY [facility] Last Admin: 12/10/16 09:52 Dose: 40 meq Rosuvastatin Calcium (Crestor) 5 mg PO HS [facility] Last Admin: 12/10/16 21:13 Dose: 5 mg Fluticasone/Salmeterol (Advair Diskus 250/50) 1 puff INH RQ12 [facility] Last Admin: 12/10/16 20:44 Dose: Not Given - Labs Labs: 12/09/16 08:48 12/09/16 08:48 PT 12.4 SECONDS (9.7-12.2) H 12/07/16 09:32 INR 1.1 12/07/16 09:32 APTT 30 SECONDS (21-34) 12/07/16 09:32 - Constitutional Appears: No Acute Distress - Head Exam Head Exam: ATRAUMATIC, NORMAL INSPECTION, NORMOCEPHALIC - Eye Exam Eye Exam: EOMI, Normal appearance, PERRL Pupil Exam: NORMAL ACCOMODATION, PERRL - ENT Exam ENT Exam: Mucous Membranes Moist, Normal Exam - Respiratory Exam Respiratory Exam: Decreased Breath Sounds, Rales, Rhonchi - Cardiovascular Exam Cardiovascular Exam: REGULAR RHYTHM, +S1, +S2. absent: Murmur Assessment and Plan (1) Pneumonia Status: Suspected (2) Weakness generalized Status: Acute (3) COPD exacerbation Status: Acute (4) Diabetes mellitus Status: Chronic (5) Hypertension Status: Chronic (6) UTI (urinary tract infection) Status: Acute
[2016-12-11] MEDS: Albuterol-Ipratrop 3 mg / 0.5 (3 ml) UD INH SCH ×4 (03:19→20:12)
[2016-12-11] MEDS: MethylPREDNISolone 40 mg Vial IVP SCH ×3 (05:28→22:04)
[2016-12-11] MEDS: Ciprofloxacin 400mg/200ml D5W 400 MG/200 ML BAG IVPB SCH (05:28)
[2016-12-11] MEDS: Aztreonam 1 GM in Sodium Chloride 0.9% 100 ML IVPB SCH ×3 (05:31→22:03)
[2016-12-11] MEDS: Fluticasone-Salmeterol 250-50mcg Diskus INH SCH ×2 (09:51→20:12)
[2016-12-11 10:58] LABS: DRAW SITE RB
--- NOTE | 2016-12-11 11:12 | RAD ---
HISTORY: sob COMPARISON: 12/07/2016 FINDINGS: LUNGS: Moderate venous congestion with bibasilar airspace opacities and small bilateral pleural effusions. PLEURA: As above. CARDIOVASCULAR: Cardiomegaly. OSSEOUS STRUCTURES: Degenerative changes in the spine and shoulders. VISUALIZED UPPER ABDOMEN: Normal. OTHER FINDINGS: None. IMPRESSION: Moderate venous congestion with bibasilar airspace opacities and small bilateral pleural effusions.
[2016-12-11 11:30] LABS: BASO % 0.1 % (0.0-2.0); HEMATOCRIT 34.4 % (34.0-47.0); LYMPH # 1.1 K/uL (1.0-4.3); LYMPH % 9.4 % (20.0-40.0); MEAN CELL VOLUME 83.4 fL (81.0-99.0); MEAN CORPUSCULAR HEMOGLOBIN 26.5 pg (27.0-31.0); MEAN CORPUSCULAR HGB CONC 31.8 g/dL (33.0-37.0); MONO # 0.6 K/uL (0.0-0.8); MONO % 4.9 % (0.0-10.0); NRBC % 0.1 % (0.0-2.0); PLATELET COUNT 325 K/uL (130-400); RED CELL DISTRIBUTION WIDTH 15.3 % (11.5-14.5); WHITE BLOOD COUNT 11.6 K/uL (4.8-10.8)
[2016-12-11 11:38] LABS: POTASSIUM 5.1 mmol/L (3.6-5.2)
[2016-12-11 11:41] LABS: CALCIUM 9.2 mg/dl (8.6-10.4)
[2016-12-11] MEDS: diltiaZEM 300 mg/24 Hours CD Cap PO SCH (11:58)
[2016-12-11] MEDS: Potassium Chloride 20 mEq ER Tab PO SCH (13:11)
[2016-12-11 14:16] LABS: NEUTROPHIL 88 % (50-75); TOTAL CELLS COUNTED 100
--- NOTE | 2016-12-11 17:42 | CP.PCM.PN ---
Subjective - Date & Time of Evaluation Date of Evaluation: 12/11/16 Time of Evaluation: 08:00 - Subjective Subjective: Patient seen and examined. Complaining of shortness of breath and appears dyspneic with saturation 88-89% on 3 L nasal cannula Afebrile Denies cough, denies chest pain Objective - Vital Signs/Intake and Output Vital Signs (last 24 hours): Temp Pulse Resp BP Pulse Ox 97.9 F 74 20 128/72 90 L 12/11/16 15:00 12/11/16 15:00 12/11/16 15:00 12/11/16 15:00 12/11/16 15:00 Intake and Output: 12/11/16 12/11/16 06:59 18:59 Intake Total 580 Balance 580 - Medications Medications: Current Medications Acetaminophen (Tylenol 325mg Tab) 650 mg PO Q6 PRN PRN Reason: Fever >100.4 F Last Admin: 12/10/16 16:30 Dose: 650 mg Albuterol/Ipratropium (Duoneb 3 Mg/0.5 Mg (3 Ml) Ud) 3 ml INH RQ6 [facility] Last Admin: 12/11/16 14:07 Dose: 3 ml Aspirin (Ecotrin) 81 mg PO DAILY [facility] Last Admin: 12/11/16 11:58 Dose: 81 mg Carbidopa/Levodopa (Sinemet) 1 tab PO DAILY [facility] Last Admin: 12/11/16 11:58 Dose: 1 tab Diltiazem HCl (Cardizem Cd) 300 mg PO DAILY [facility] Last Admin: 12/11/16 11:58 Dose: 300 mg Guaifenesin (Mucinex La) 600 mg PO BID [facility] Aztreonam 1 gm/ Sodium (Chloride) 100 mls @ 100 mls/hr IVPB Q8H [facility] Last Admin: 12/11/16 13:31 Dose: 100 mls/hr Moxifloxacin HCl (Avelox Iv 400mg/250ml Ns) 400 mg in 250 mls @ 167 mls/hr IVPB Q24H [facility] Losartan Potassium (Cozaar) 100 mg PO DAILY [facility] Last Admin: 12/11/16 11:58 Dose: 100 mg Methylprednisolone (Solu-Medrol) 40 mg IVP Q8 [facility] Last Admin: 12/11/16 13:21 Dose: 40 mg Pantoprazole Sodium (Protonix Inj) 40 mg IVP DAILY [facility] Last Admin: 12/11/16 11:58 Dose: 40 mg Rosuvastatin Calcium (Crestor) 5 mg PO HS [facility] Last Admin: 12/10/16 21:13 Dose: 5 mg Fluticasone/Salmeterol (Advair Diskus 250/50) 1 puff INH RQ12 [facility] Last Admin: 12/11/16 09:51 Dose: 1 puff - Labs Labs: 12/11/16 11:22 12/11/16 11:22 PT 12.4 SECONDS (9.7-12.2) H 12/07/16 09:32 INR 1.1 12/07/16 09:32 APTT 30 SECONDS (21-34) 12/07/16 09:32 - Head Exam Head Exam: ATRAUMATIC, NORMOCEPHALIC - Eye Exam Eye Exam: Normal appearance - ENT Exam ENT Exam: Mucous Membranes Moist - Neck Exam Neck Exam: Normal Inspection - Respiratory Exam Respiratory Exam: Clear to Ausculation Bilateral - Cardiovascular Exam Cardiovascular Exam: REGULAR RHYTHM - GI/Abdominal Exam GI & Abdominal Exam: Soft, Normal Bowel Sounds Assessment and Plan (1) Lung infiltrate Assessment & Plan: Patient complaining of shortness of breath and chest x-ray consistent with bilateral basilar infiltrate ABG consistent with hypoxemia Lasix 40 mg IV push now and continue IV antibiotics BiPAP is no change in clinical status Status: Acute (2) UTI (urinary tract infection) Status: Acute
[2016-12-11] MEDS: Moxifloxacin IV 400mg/250ml NS 400 MG/250 ML BAG IVPB SCH (20:13)
[2016-12-11] MEDS: guaiFENesin 600 mg ER Tab PO SCH (20:14)
--- NOTE | 2016-12-11 22:38 | CP.PCM.PN ---
Subjective - Date & Time of Evaluation Date of Evaluation: 12/11/16 Time of Evaluation: 10:11 - Subjective Subjective: Patient seen and examined. Complaining of shortness of breath and appears dyspneic with saturation 88-89% on 3 L nasal cannula Afebrile Denies cough, denies chest pain Objective - Vital Signs/Intake and Output Vital Signs (last 24 hours): Temp Pulse Resp BP Pulse Ox 97.9 F 74 20 128/72 90 L 12/11/16 15:00 12/11/16 15:00 12/11/16 15:00 12/11/16 15:00 12/11/16 15:00 Intake and Output: 12/11/16 12/12/16 18:59 06:59 Intake Total 580 Balance 580 - Medications Medications: Current Medications Acetaminophen (Tylenol 325mg Tab) 650 mg PO Q6 PRN PRN Reason: Fever >100.4 F Last Admin: 12/10/16 16:30 Dose: 650 mg Albuterol/Ipratropium (Duoneb 3 Mg/0.5 Mg (3 Ml) Ud) 3 ml INH RQ6 [facility] Last Admin: 12/11/16 20:12 Dose: 3 ml Aspirin (Ecotrin) 81 mg PO DAILY [facility] Last Admin: 12/11/16 11:58 Dose: 81 mg Carbidopa/Levodopa (Sinemet) 1 tab PO DAILY [facility] Last Admin: 12/11/16 11:58 Dose: 1 tab Diltiazem HCl (Cardizem Cd) 300 mg PO DAILY [facility] Last Admin: 12/11/16 11:58 Dose: 300 mg Guaifenesin (Mucinex La) 600 mg PO BID [facility] Last Admin: 12/11/16 20:14 Dose: 600 mg Aztreonam 1 gm/ Sodium (Chloride) 100 mls @ 100 mls/hr IVPB Q8H [facility] Last Admin: 12/11/16 22:03 Dose: 100 mls/hr Moxifloxacin HCl (Avelox Iv 400mg/250ml Ns) 400 mg in 250 mls @ 167 mls/hr IVPB Q24H [facility] Last Admin: 12/11/16 20:13 Dose: 167 mls/hr Losartan Potassium (Cozaar) 100 mg PO DAILY [facility] Last Admin: 12/11/16 11:58 Dose: 100 mg Methylprednisolone (Solu-Medrol) 40 mg IVP Q8 [facility] Last Admin: 12/11/16 22:04 Dose: 40 mg Pantoprazole Sodium (Protonix Inj) 40 mg IVP DAILY [facility] Last Admin: 12/11/16 11:58 Dose: 40 mg Rosuvastatin Calcium (Crestor) 5 mg PO HS [facility] Last Admin: 12/11/16 22:04 Dose: 5 mg Fluticasone/Salmeterol (Advair Diskus 250/50) 1 puff INH RQ12 [facility] Last Admin: 12/11/16 20:12 Dose: 1 puff - Labs Labs: 12/11/16 11:22 12/11/16 11:22 PT 12.4 SECONDS (9.7-12.2) H 12/07/16 09:32 INR 1.1 12/07/16 09:32 APTT 30 SECONDS (21-34) 12/07/16 09:32 - Constitutional Appears: No Acute Distress - Head Exam Head Exam: ATRAUMATIC, NORMAL INSPECTION, NORMOCEPHALIC - Eye Exam Eye Exam: EOMI, Normal appearance, PERRL Pupil Exam: NORMAL ACCOMODATION, PERRL - Respiratory Exam Respiratory Exam: Decreased Breath Sounds, Rhonchi - Cardiovascular Exam Cardiovascular Exam: REGULAR RHYTHM, +S1, +S2. absent: Murmur - GI/Abdominal Exam GI & Abdominal Exam: Soft, Normal Bowel Sounds. absent: Tenderness - Neurological Exam Neurological Exam: Alert, Awake, CN II-XII Intact, Normal Gait, Oriented x3 Assessment and Plan (1) Pneumonia Status: Suspected (2) Weakness generalized Status: Acute (3) COPD exacerbation Status: Acute (4) Diabetes mellitus Status: Chronic (5) Hypertension Status: Chronic (6) UTI (urinary tract infection) Status: Acute
--- NOTE | 2016-12-11 23:09 | CP.PCM.PN ---
Subjective - Date & Time of Evaluation Date of Evaluation: 12/11/16 Time of Evaluation: 23:08 - Subjective Subjective: Afebrile MILDLY DYSNEA AT REST ON NC 2L O2 RX. Denies chest pain CXR 12/11/16 NOTED. Moderate venous congestion with by basilar airspace opacities and small bilateral pleural effusions. WBC 11.6 IMPROVING. Objective - Vital Signs/Intake and Output Vital Signs (last 24 hours): Temp Pulse Resp BP Pulse Ox 97.9 F 74 20 128/72 90 L 12/11/16 15:00 12/11/16 15:00 12/11/16 15:00 12/11/16 15:00 12/11/16 15:00 Intake and Output: 12/11/16 12/12/16 18:59 06:59 Intake Total 580 Balance 580 - Medications Medications: Current Medications Acetaminophen (Tylenol 325mg Tab) 650 mg PO Q6 PRN PRN Reason: Fever >100.4 F Last Admin: 12/10/16 16:30 Dose: 650 mg Albuterol/Ipratropium (Duoneb 3 Mg/0.5 Mg (3 Ml) Ud) 3 ml INH RQ6 [facility] Last Admin: 12/11/16 20:12 Dose: 3 ml Aspirin (Ecotrin) 81 mg PO DAILY [facility] Last Admin: 12/11/16 11:58 Dose: 81 mg Carbidopa/Levodopa (Sinemet) 1 tab PO DAILY [facility] Last Admin: 12/11/16 11:58 Dose: 1 tab Diltiazem HCl (Cardizem Cd) 300 mg PO DAILY [facility] Last Admin: 12/11/16 11:58 Dose: 300 mg Guaifenesin (Mucinex La) 600 mg PO BID [facility] Last Admin: 12/11/16 20:14 Dose: 600 mg Aztreonam 1 gm/ Sodium (Chloride) 100 mls @ 100 mls/hr IVPB Q8H [facility] Last Admin: 12/11/16 22:03 Dose: 100 mls/hr Moxifloxacin HCl (Avelox Iv 400mg/250ml Ns) 400 mg in 250 mls @ 167 mls/hr IVPB Q24H [facility] Last Admin: 12/11/16 20:13 Dose: 167 mls/hr Losartan Potassium (Cozaar) 100 mg PO DAILY [facility] Last Admin: 12/11/16 11:58 Dose: 100 mg Methylprednisolone (Solu-Medrol) 40 mg IVP Q8 [facility] Last Admin: 12/11/16 22:04 Dose: 40 mg Pantoprazole Sodium (Protonix Inj) 40 mg IVP DAILY [facility] Last Admin: 12/11/16 11:58 Dose: 40 mg Rosuvastatin Calcium (Crestor) 5 mg PO HS [facility] Last Admin: 12/11/16 22:04 Dose: 5 mg Fluticasone/Salmeterol (Advair Diskus 250/50) 1 puff INH RQ12 [facility] Last Admin: 12/11/16 20:12 Dose: 1 puff - Labs Labs: 12/11/16 11:22 12/11/16 11:22 PT 12.4 SECONDS (9.7-12.2) H 12/07/16 09:32 INR 1.1 12/07/16 09:32 APTT 30 SECONDS (21-34) 12/07/16 09:32 Assessment and Plan (1) Fever Status: Acute (2) UTI (urinary tract infection) Status: Acute (3) Weakness generalized Status: Acute (4) Pneumonia Status: Suspected (5) Diabetes mellitus Status: Chronic (6) Hypertension Status: Chronic - Assessment and Plan (Free Text) Plan: OFF iv CIPRO 400 MG EVERY 12 HOURLY 12/08/16 START I AVELOX 400MG IVPB OD DAILY X 5 DAYS FOR PNEUMONITIS CONTINUE iv AZACTAM 1 G EVERY 8 HOURLY 12/08/16. IF PULMONARY STATUS STABLE CAN DC IV AZACTAM IN AM CAN SWITCH TO PO BACTRIM 1DS PO BID X 7 DAYS IN AM F/U RENAL FUNCTIONS/AND LFTS AT [facility] SPUTUM GRAM STAIN AND CULTURE-P PULMONARY TOILET. CASE DISCUSSED WITH ASSISTED SALES REPRESENTATIVE MS MCCLAIN.
[2016-12-12] MEDS: Albuterol-Ipratrop 3 mg / 0.5 (3 ml) UD INH SCH ×4 (02:15→20:04)
[2016-12-12] MEDS: Aztreonam 1 GM in Sodium Chloride 0.9% 100 ML IVPB SCH ×4 (05:30→21:29)
[2016-12-12] MEDS: Fluticasone-Salmeterol 250-50mcg Diskus INH SCH (08:58)
[2016-12-12] MEDS: guaiFENesin 600 mg ER Tab PO SCH ×2 (09:09→18:54)
[2016-12-12] MEDS: MethylPREDNISolone 40 mg Vial IVP SCH ×3 (09:09→21:27)
[2016-12-12] MEDS: diltiaZEM 300 mg/24 Hours CD Cap PO SCH (09:10)
--- NOTE | 2016-12-12 16:44 | CP.PCM.PN ---
<Johnson Reis S - Last Filed: 12/12/16 16:41> Subjective - Date & Time of Evaluation Date of Evaluation: 12/12/16 Time of Evaluation: 14:00 - Subjective Subjective: Patient seen and examined. Sitting in mild respiratory distress saturation low 90s on 3 L nasal cannula but desaturates in the mid 80s on exertion Chest denies cough, denies fever or chills, denies chest pain on antibiotics as per infectious disease Objective - Vital Signs/Intake and Output Vital Signs (last 24 hours): Temp Pulse Resp BP Pulse Ox 97.8 F 76 20 135/85 95 12/12/16 15:34 12/12/16 15:34 12/12/16 15:34 12/12/16 15:34 12/12/16 15:34 Intake and Output: 12/12/16 12/12/16 06:59 18:59 Intake Total 900 Balance 900 - Medications Medications: Current Medications Acetaminophen (Tylenol 325mg Tab) 650 mg PO Q6 PRN PRN Reason: Fever >100.4 F Last Admin: 12/12/16 13:45 Dose: 650 mg Albuterol/Ipratropium (Duoneb 3 Mg/0.5 Mg (3 Ml) Ud) 3 ml INH RQ6 [facility] Last Admin: 12/12/16 14:40 Dose: 3 ml Aspirin (Ecotrin) 81 mg PO DAILY [facility] Last Admin: 12/12/16 09:09 Dose: 81 mg Carbidopa/Levodopa (Sinemet) 1 tab PO DAILY [facility] Last Admin: 12/12/16 09:09 Dose: 1 tab Diltiazem HCl (Cardizem Cd) 300 mg PO DAILY [facility] Last Admin: 12/12/16 09:10 Dose: 300 mg Guaifenesin (Mucinex La) 600 mg PO BID [facility] Last Admin: 12/12/16 09:09 Dose: 600 mg Aztreonam 1 gm/ Sodium (Chloride) 100 mls @ 100 mls/hr IVPB Q8H [facility] Last Admin: 12/12/16 16:09 Dose: 100 mls/hr Moxifloxacin HCl (Avelox Iv 400mg/250ml Ns) 400 mg in 250 mls @ 167 mls/hr IVPB Q24H [facility] Last Admin: 12/11/16 20:13 Dose: 167 mls/hr Losartan Potassium (Cozaar) 100 mg PO DAILY [facility] Last Admin: 12/12/16 09:09 Dose: 100 mg Methylprednisolone (Solu-Medrol) 40 mg IVP Q8 [facility] Last Admin: 12/12/16 16:09 Dose: 40 mg Pantoprazole Sodium (Protonix Inj) 40 mg IVP DAILY [facility] Last Admin: 12/12/16 09:10 Dose: 40 mg Rosuvastatin Calcium (Crestor) 5 mg PO HS [facility] Last Admin: 12/11/16 22:04 Dose: 5 mg Fluticasone/Salmeterol (Advair Diskus 250/50) 1 puff INH RQ12 [facility] Last Admin: 12/12/16 08:58 Dose: 1 puff - Labs Labs: 12/11/16 11:22 12/11/16 11:22 PT 12.4 SECONDS (9.7-12.2) H 12/07/16 09:32 INR 1.1 12/07/16 09:32 APTT 30 SECONDS (21-34) 12/07/16 09:32 - Head Exam Head Exam: ATRAUMATIC, NORMOCEPHALIC - Eye Exam Eye Exam: Normal appearance - ENT Exam ENT Exam: Mucous Membranes Moist - Neck Exam Neck Exam: Normal Inspection - Respiratory Exam Respiratory Exam: Decreased Breath Sounds - Cardiovascular Exam Cardiovascular Exam: REGULAR RHYTHM - GI/Abdominal Exam GI & Abdominal Exam: Soft, Normal Bowel Sounds - Extremities Exam Extremities Exam: Normal Inspection Assessment and Plan (1) Lung infiltrate Assessment & Plan: Chest x-ray consistent with bibasilar infiltrates/small effusion Continuing antibiotics as per infectious disease Continue nebulizer treatment and steroids pro Calcitonin level and proBNP ABG room air Status: Acute (2) UTI (urinary tract infection) Status: Acute <Laquita Dyer - Last Filed: 12/13/16 03:24> Objective - Vital Signs/Intake and Output Vital Signs (last 24 hours): Temp Pulse Resp BP Pulse Ox 97.8 F 70 20 123/72 95 12/13/16 00:00 12/13/16 00:00 12/13/16 00:00 12/13/16 00:00 12/13/16 00:00 Intake and Output: 12/12/16 12/13/16 18:59 06:59 Intake Total 800 Balance 800 - Medications Medications: Current Medications Acetaminophen (Tylenol 325mg Tab) 650 mg PO Q6 PRN PRN Reason: Fever >100.4 F Last Admin: 12/12/16 13:45 Dose: 650 mg Albuterol/Ipratropium (Duoneb 3 Mg/0.5 Mg (3 Ml) Ud) 3 ml INH RQ6 [facility] Last Admin: 12/13/16 01:27 Dose: Not Given Aspirin (Ecotrin) 81 mg PO DAILY [facility] Last Admin: 12/12/16 09:09 Dose: 81 mg Carbidopa/Levodopa (Sinemet) 1 tab PO DAILY [facility] Last Admin: 12/12/16 09:09 Dose: 1 tab Diltiazem HCl (Cardizem Cd) 300 mg PO DAILY [facility] Last Admin: 12/12/16 09:10 Dose: 300 mg Guaifenesin (Mucinex La) 600 mg PO BID [facility] Last Admin: 12/12/16 18:54 Dose: 600 mg Aztreonam 1 gm/ Sodium (Chloride) 100 mls @ 100 mls/hr IVPB Q8H [facility] Last Admin: 12/12/16 21:29 Dose: 100 mls/hr Moxifloxacin HCl (Avelox Iv 400mg/250ml Ns) 400 mg in 250 mls @ 167 mls/hr IVPB Q24H [facility] Last Admin: 12/12/16 18:54 Dose: 167 mls/hr Losartan Potassium (Cozaar) 100 mg PO DAILY [facility] Last Admin: 12/12/16 09:09 Dose: 100 mg Methylprednisolone (Solu-Medrol) 40 mg IVP Q8 [facility] Last Admin: 12/12/16 21:27 Dose: 40 mg Pantoprazole Sodium (Protonix Inj) 40 mg IVP DAILY [facility] Last Admin: 12/12/16 09:10 Dose: 40 mg Rosuvastatin Calcium (Crestor) 5 mg PO HS [facility] Last Admin: 12/12/16 21:29 Dose: 5 mg - Labs Labs: 12/11/16 11:22 12/11/16 11:22 PT 12.4 SECONDS (9.7-12.2) H 12/07/16 09:32 INR 1.1 12/07/16 09:32 APTT 30 SECONDS (21-34) 12/07/16 09:32 Assessment and Plan (1) Fever Status: Acute (2) UTI (urinary tract infection) Status: Acute (3) Weakness generalized Status: Acute (4) Pneumonia Status: Suspected (5) Diabetes mellitus Status: Chronic (6) Hypertension Status: Chronic
[2016-12-12] MEDS ORDERED: Iodixanol 320 MG/ML 100 ML BOTTLE IV ONE (17:32)
--- NOTE | 2016-12-12 18:42 | CT ---
PROCEDURE: CT Chest with contrast (Pulmonary Angiogram) HISTORY: hypoxia COMPARISON: None available. TECHNIQUE: Axial computed tomography images were obtained of the chest in the pulmonary arterial phase of enhancement. Coronal and sagittal reformatted images were created and reviewed. Intravenous contrast dose: 100 mL of Visipaque 320 Radiation dose: Total exam DLP = 430.91 mGy-cm. This CT exam was performed using one or more of the following dose reduction techniques: Automated exposure control, adjustment of the mA and/or kV according to patient size, and/or use of iterative reconstruction technique. FINDINGS: PULMONARY ARTERIES: No evidence of central pulmonary embolus. AORTA: No acute findings. No thoracic aortic aneurysm. LUNGS: Airspace consolidations are noted at the left lower lobe and right lower lobe may represent aspiration pneumonia. Otherwise no evidence of acute pathology in the lungs. Mild central bronchiectasis is noted. PLEURAL SPACES: Unremarkable. No effusion or pneuomothorax. HEART: The heart is mildly to moderately enlarged. LYMPH NODES: No lymphadenopathy. BONES, CHEST WALL: Unremarkable. No fracture or destructive lesion OTHER FINDINGS: Unremarkable. IMPRESSION: No evidence of central pulmonary embolus. Airspace consolidation at the lower lobes may represent aspiration pneumonia. Please correlate clinically. [id number] cardiomegaly.
[2016-12-12] MEDS: Moxifloxacin IV 400mg/250ml NS 400 MG/250 ML BAG IVPB SCH (18:54)
--- NOTE | 2016-12-12 22:06 | CP.PCM.PN ---
Subjective - Date & Time of Evaluation Date of Evaluation: 12/12/16 Time of Evaluation: 22:06 - Subjective Subjective: PATIENT SEEN AT BEDSIDE. AFEBRILE, C/O SOB ON WALKING TO THE BATHROOM.ON 3 L NASAL CANNULA OXYGEN DAUGHTER AT BEDSIDE. PULMONARY FOLLOW-UP NOTED Objective - Vital Signs/Intake and Output Vital Signs (last 24 hours): Temp Pulse Resp BP Pulse Ox 97.8 F 76 20 135/85 95 12/12/16 15:34 12/12/16 15:34 12/12/16 15:34 12/12/16 15:34 12/12/16 15:34 - Medications Medications: Current Medications Acetaminophen (Tylenol 325mg Tab) 650 mg PO Q6 PRN PRN Reason: Fever >100.4 F Last Admin: 12/12/16 13:45 Dose: 650 mg Albuterol/Ipratropium (Duoneb 3 Mg/0.5 Mg (3 Ml) Ud) 3 ml INH RQ6 [facility] Last Admin: 12/12/16 20:04 Dose: 3 ml Aspirin (Ecotrin) 81 mg PO DAILY [facility] Last Admin: 12/12/16 09:09 Dose: 81 mg Carbidopa/Levodopa (Sinemet) 1 tab PO DAILY [facility] Last Admin: 12/12/16 09:09 Dose: 1 tab Diltiazem HCl (Cardizem Cd) 300 mg PO DAILY [facility] Last Admin: 12/12/16 09:10 Dose: 300 mg Guaifenesin (Mucinex La) 600 mg PO BID [facility] Last Admin: 12/12/16 18:54 Dose: 600 mg Aztreonam 1 gm/ Sodium (Chloride) 100 mls @ 100 mls/hr IVPB Q8H [facility] Last Admin: 12/12/16 21:29 Dose: 100 mls/hr Moxifloxacin HCl (Avelox Iv 400mg/250ml Ns) 400 mg in 250 mls @ 167 mls/hr IVPB Q24H [facility] Last Admin: 12/12/16 18:54 Dose: 167 mls/hr Losartan Potassium (Cozaar) 100 mg PO DAILY [facility] Last Admin: 12/12/16 09:09 Dose: 100 mg Methylprednisolone (Solu-Medrol) 40 mg IVP Q8 [facility] Last Admin: 12/12/16 21:27 Dose: 40 mg Pantoprazole Sodium (Protonix Inj) 40 mg IVP DAILY [facility] Last Admin: 12/12/16 09:10 Dose: 40 mg Rosuvastatin Calcium (Crestor) 5 mg PO HS [facility] Last Admin: 12/12/16 21:29 Dose: 5 mg - Labs Labs: 12/11/16 11:22 12/11/16 11:22 PT 12.4 SECONDS (9.7-12.2) H 12/07/16 09:32 INR 1.1 12/07/16 09:32 APTT 30 SECONDS (21-34) 12/07/16 09:32 - Constitutional Appears: No Acute Distress - Head Exam Head Exam: NORMAL INSPECTION - Eye Exam Eye Exam: EOMI, PERRL - ENT Exam ENT Exam: Normal Oropharynx - Neck Exam Neck Exam: Normal Inspection - Respiratory Exam Respiratory Exam: Decreased Breath Sounds, Prolonged Expiratory Phase - Cardiovascular Exam Cardiovascular Exam: REGULAR RHYTHM, +S1, +S2 - GI/Abdominal Exam GI & Abdominal Exam: Soft, Normal Bowel Sounds. absent: Organomegaly - Extremities Exam Extremities Exam: absent: Calf Tenderness, Pedal Edema - Neurological Exam Neurological Exam: Alert, Awake, CN II-XII Intact, Oriented x3 - Psychiatric Exam Psychiatric exam: Normal Mood - Skin Skin Exam: Normal Color, Warm Assessment and Plan (1) Fever Status: Acute (2) UTI (urinary tract infection) Status: Acute (3) Weakness generalized Status: Acute (4) Pneumonia Status: Suspected (5) Diabetes mellitus Status: Chronic (6) Hypertension Status: Chronic - Assessment and Plan (Free Text) Assessment: ON AVELOX 400MG IVPB OD DAILY X 5 DAYS FOR PNEUMONITIS CONTINUE iv AZACTAM 1 G EVERY 8 HOURLY 12/08/16. SPUTUM GRAM STAIN AND CULTURE-P PULMONARY TOILET. DC HELD IN VIEW OF DESATURATIONS SECONDARY TO EXERTION. PER PULMONARY. CASE DISCUSSED WITH AUTO GARAGE ATTENDANT MS MCCLAIN.
[2016-12-13] MEDS: Albuterol-Ipratrop 3 mg / 0.5 (3 ml) UD INH SCH ×3 (01:27→14:04)
[2016-12-13] MEDS: Aztreonam 1 GM in Sodium Chloride 0.9% 100 ML IVPB SCH ×2 (05:30→13:41)
[2016-12-13] MEDS: MethylPREDNISolone 40 mg Vial IVP SCH ×2 (05:31→13:42)
[2016-12-13] MEDS: guaiFENesin 600 mg ER Tab PO SCH ×2 (09:38→17:11)
[2016-12-13] MEDS: diltiaZEM 300 mg/24 Hours CD Cap PO SCH (09:38)
[2016-12-13] MEDS ORDERED: Acetylcysteine 20% Inhal Soln (4ml) INH SCH (14:00)
--- NOTE | 2016-12-13 15:03 | CP.PCM.PN ---
Subjective - Date & Time of Evaluation Date of Evaluation: 12/15/16 Time of Evaluation: 05:15 - Subjective Subjective: Pt seen and examined condition improving Objective - Vital Signs/Intake and Output Vital Signs (last 24 hours): Temp Pulse Resp BP Pulse Ox 97 F L 70 80 H 138/73 18 L 12/13/16 08:00 12/13/16 00:00 12/13/16 08:00 12/13/16 08:00 12/13/16 08:00 Intake and Output: 12/13/16 12/13/16 06:59 18:59 Intake Total 800 Balance 800 - Medications Medications: Current Medications Acetaminophen (Tylenol 325mg Tab) 650 mg PO Q6 PRN PRN Reason: Fever >100.4 F Last Admin: 12/12/16 13:45 Dose: 650 mg Acetylcysteine (Acetylcysteine 20%) 4 ml INH RQ6 [facility] Last Admin: 12/13/16 14:03 Dose: 4 ml Albuterol/Ipratropium (Duoneb 3 Mg/0.5 Mg (3 Ml) Ud) 3 ml INH RQ6 [facility] Last Admin: 12/13/16 14:04 Dose: 3 ml Aspirin (Ecotrin) 81 mg PO DAILY [facility] Last Admin: 12/13/16 09:38 Dose: 81 mg Carbidopa/Levodopa (Sinemet) 1 tab PO DAILY [facility] Last Admin: 12/13/16 09:38 Dose: 1 tab Diltiazem HCl (Cardizem Cd) 300 mg PO DAILY [facility] Last Admin: 12/13/16 09:38 Dose: 300 mg Guaifenesin (Mucinex La) 600 mg PO BID [facility] Last Admin: 12/13/16 09:38 Dose: 600 mg Aztreonam 1 gm/ Sodium (Chloride) 100 mls @ 100 mls/hr IVPB Q8H [facility] Last Admin: 12/13/16 13:41 Dose: 100 mls/hr Moxifloxacin HCl (Avelox Iv 400mg/250ml Ns) 400 mg in 250 mls @ 167 mls/hr IVPB Q24H [facility] Last Admin: 12/12/16 18:54 Dose: 167 mls/hr Losartan Potassium (Cozaar) 100 mg PO DAILY [facility] Last Admin: 12/13/16 09:38 Dose: 100 mg Methylprednisolone (Solu-Medrol) 40 mg IVP Q8 [facility] Last Admin: 12/13/16 13:42 Dose: 40 mg Pantoprazole Sodium (Protonix Inj) 40 mg IVP DAILY [facility] Last Admin: 12/13/16 09:38 Dose: 40 mg Rosuvastatin Calcium (Crestor) 5 mg PO HS [facility] Last Admin: 12/12/16 21:29 Dose: 5 mg - Labs Labs: 12/11/16 11:22 12/11/16 11:22 PT 12.4 SECONDS (9.7-12.2) H 12/07/16 09:32 INR 1.1 12/07/16 09:32 APTT 30 SECONDS (21-34) 12/07/16 09:32 - Head Exam Head Exam: ATRAUMATIC, NORMOCEPHALIC - ENT Exam ENT Exam: Mucous Membranes Moist - Neck Exam Neck Exam: Normal Inspection - Respiratory Exam Respiratory Exam: Decreased Breath Sounds - Cardiovascular Exam Cardiovascular Exam: REGULAR RHYTHM - GI/Abdominal Exam GI & Abdominal Exam: Soft, Normal Bowel Sounds - Extremities Exam Extremities Exam: Normal Inspection Assessment and Plan (1) Lung infiltrate Assessment & Plan: 85 yr old female admitted for SOB/ copd / fever /UTI urine culture - positive for E COLI and sensitive to azstonium and treated with aztronium repeat blood culture - negative blood culture- negative CT chest - negative for PE -No evidence of central pulmonary embolus. Airspace consolidation at the lower lobes may represent aspiration pneumonia. .[id number] cardiomegaly Status: Acute (2) UTI (urinary tract infection) Status: Acute
--- NOTE | 2016-12-13 16:03 | CP.PCM.PN ---
Subjective - Date & Time of Evaluation Date of Evaluation: 12/13/16 Time of Evaluation: 10:45 - Subjective Subjective: Pt seen an dexamoine d today , states feels better , sob improved, denies any chest pain, heada meme, abdominal pain c/o mild congestion OOB with minimal sob , No overnight events reported by RN , Objective - Vital Signs/Intake and Output Vital Signs (last 24 hours): Temp Pulse Resp BP Pulse Ox 97 F L 70 80 H 138/73 18 L 12/13/16 08:00 12/13/16 00:00 12/13/16 08:00 12/13/16 08:00 12/13/16 08:00 Intake and Output: 12/13/16 12/13/16 06:59 18:59 Intake Total 800 600 Balance 800 600 - Medications Medications: Current Medications Acetaminophen (Tylenol 325mg Tab) 650 mg PO Q6 PRN PRN Reason: Fever >100.4 F Last Admin: 12/12/16 13:45 Dose: 650 mg Acetylcysteine (Acetylcysteine 20%) 4 ml INH RQ6 [facility] Last Admin: 12/13/16 14:03 Dose: 4 ml Albuterol/Ipratropium (Duoneb 3 Mg/0.5 Mg (3 Ml) Ud) 3 ml INH RQ6 [facility] Last Admin: 12/13/16 14:04 Dose: 3 ml Aspirin (Ecotrin) 81 mg PO DAILY [facility] Last Admin: 12/13/16 09:38 Dose: 81 mg Carbidopa/Levodopa (Sinemet) 1 tab PO DAILY [facility] Last Admin: 12/13/16 09:38 Dose: 1 tab Diltiazem HCl (Cardizem Cd) 300 mg PO DAILY [facility] Last Admin: 12/13/16 09:38 Dose: 300 mg Guaifenesin (Mucinex La) 600 mg PO BID [facility] Last Admin: 12/13/16 09:38 Dose: 600 mg Aztreonam 1 gm/ Sodium (Chloride) 100 mls @ 100 mls/hr IVPB Q8H [facility] Last Admin: 12/13/16 13:41 Dose: 100 mls/hr Moxifloxacin HCl (Avelox Iv 400mg/250ml Ns) 400 mg in 250 mls @ 167 mls/hr IVPB Q24H [facility] Last Admin: 12/12/16 18:54 Dose: 167 mls/hr Losartan Potassium (Cozaar) 100 mg PO DAILY [facility] Last Admin: 12/13/16 09:38 Dose: 100 mg Methylprednisolone (Solu-Medrol) 40 mg IVP Q8 [facility] Last Admin: 12/13/16 13:42 Dose: 40 mg Pantoprazole Sodium (Protonix Inj) 40 mg IVP DAILY [facility] Last Admin: 12/13/16 09:38 Dose: 40 mg Rosuvastatin Calcium (Crestor) 5 mg PO HS [facility] Last Admin: 12/12/16 21:29 Dose: 5 mg - Labs Labs: 12/11/16 11:22 12/11/16 11:22 PT 12.4 SECONDS (9.7-12.2) H 12/07/16 09:32 INR 1.1 12/07/16 09:32 APTT 30 SECONDS (21-34) 12/07/16 09:32 - Constitutional Appears: Well, No Acute Distress - Respiratory Exam Respiratory Exam: Decreased Breath Sounds, Rhonchi Assessment and Plan - Assessment and Plan (Free Text) Assessment: A/P 85 yr old female admitted for SOB/ copd / fever /UTI a febrile urine culture - positive for E COLI and sensitive to azstonium and treated with aztronium repeat blood culture - negative blood culture- negative CT chest - negative for PE -No evidence of central pulmonary embolus. Airspace consolidation at the lower lobes may represent aspiration pneumonia. .[id number] cardiomegaly. seen by Dr. Reis today , cleared for discharge to [facility] today D/W Dr. Santiago, stable for discharge to [facility] today and Dr. Santiago will follow the patient at [facility] Discharge plan discussed with patient a nd family at bed side
--- NOTE | 2016-12-13 16:22 | CP.PCM.PN ---
Subjective - Date & Time of Evaluation Date of Evaluation: 12/12/16 Time of Evaluation: 10:12 - Subjective Subjective: PT SEEN AND EXAMINED, AFEBRILE,C/O SOB ON WALKING TO THE BATHROOM.ON 3 L NASAL CANNULA OXYGEN DAUGHTER AT BEDSIDE. Objective - Vital Signs/Intake and Output Vital Signs (last 24 hours): Temp Pulse Resp BP Pulse Ox 97 F L 70 80 H 138/73 18 L 12/13/16 08:00 12/13/16 00:00 12/13/16 08:00 12/13/16 08:00 12/13/16 08:00 Intake and Output: 12/13/16 12/13/16 06:59 18:59 Intake Total 800 600 Balance 800 600 - Medications Medications: Current Medications Acetaminophen (Tylenol 325mg Tab) 650 mg PO Q6 PRN PRN Reason: Fever >100.4 F Last Admin: 12/12/16 13:45 Dose: 650 mg Acetylcysteine (Acetylcysteine 20%) 4 ml INH RQ6 [facility] Last Admin: 12/13/16 14:03 Dose: 4 ml Albuterol/Ipratropium (Duoneb 3 Mg/0.5 Mg (3 Ml) Ud) 3 ml INH RQ6 [facility] Last Admin: 12/13/16 14:04 Dose: 3 ml Aspirin (Ecotrin) 81 mg PO DAILY [facility] Last Admin: 12/13/16 09:38 Dose: 81 mg Carbidopa/Levodopa (Sinemet) 1 tab PO DAILY [facility] Last Admin: 12/13/16 09:38 Dose: 1 tab Diltiazem HCl (Cardizem Cd) 300 mg PO DAILY [facility] Last Admin: 12/13/16 09:38 Dose: 300 mg Guaifenesin (Mucinex La) 600 mg PO BID [facility] Last Admin: 12/13/16 09:38 Dose: 600 mg Aztreonam 1 gm/ Sodium (Chloride) 100 mls @ 100 mls/hr IVPB Q8H [facility] Last Admin: 12/13/16 13:41 Dose: 100 mls/hr Moxifloxacin HCl (Avelox Iv 400mg/250ml Ns) 400 mg in 250 mls @ 167 mls/hr IVPB Q24H [facility] Last Admin: 12/12/16 18:54 Dose: 167 mls/hr Losartan Potassium (Cozaar) 100 mg PO DAILY [facility] Last Admin: 12/13/16 09:38 Dose: 100 mg Methylprednisolone (Solu-Medrol) 40 mg IVP Q8 [facility] Last Admin: 12/13/16 13:42 Dose: 40 mg Pantoprazole Sodium (Protonix Inj) 40 mg IVP DAILY [facility] Last Admin: 12/13/16 09:38 Dose: 40 mg Rosuvastatin Calcium (Crestor) 5 mg PO HS [facility] Last Admin: 12/12/16 21:29 Dose: 5 mg - Labs Labs: 12/11/16 11:22 12/11/16 11:22 PT 12.4 SECONDS (9.7-12.2) H 12/07/16 09:32 INR 1.1 12/07/16 09:32 APTT 30 SECONDS (21-34) 12/07/16 09:32 - Constitutional Appears: No Acute Distress - Head Exam Head Exam: ATRAUMATIC, NORMAL INSPECTION, NORMOCEPHALIC - Eye Exam Eye Exam: EOMI, Normal appearance, PERRL Pupil Exam: NORMAL ACCOMODATION, PERRL - Respiratory Exam Respiratory Exam: Decreased Breath Sounds, Rales, Rhonchi, NORMAL BREATHING PATTERN - Cardiovascular Exam Cardiovascular Exam: REGULAR RHYTHM, +S1, +S2. absent: Murmur - GI/Abdominal Exam GI & Abdominal Exam: Soft, Normal Bowel Sounds. absent: Tenderness Assessment and Plan (1) Pneumonia Status: Suspected (2) Weakness generalized Status: Acute (3) COPD exacerbation Status: Acute (4) Diabetes mellitus Status: Chronic (5) Hypertension Status: Chronic (6) UTI (urinary tract infection) Status: Acute
--- NOTE | 2016-12-13 16:30 | CP.PCM.PN ---
Subjective - Date & Time of Evaluation Date of Evaluation: 12/13/16 Time of Evaluation: 10:13 - Subjective Subjective: PATIENT SEEN AT BEDSIDE. AFEBRILE, C/O SOB ON WALKING TO THE BATHROOM.ON 3 L NASAL CANNULA OXYGEN DAUGHTER AT BEDSIDE. Objective - Vital Signs/Intake and Output Vital Signs (last 24 hours): Temp Pulse Resp BP Pulse Ox 97 F L 70 80 H 138/73 18 L 12/13/16 08:00 12/13/16 00:00 12/13/16 08:00 12/13/16 08:00 12/13/16 08:00 Intake and Output: 12/13/16 12/13/16 06:59 18:59 Intake Total 800 600 Balance 800 600 - Medications Medications: Current Medications Acetaminophen (Tylenol 325mg Tab) 650 mg PO Q6 PRN PRN Reason: Fever >100.4 F Last Admin: 12/12/16 13:45 Dose: 650 mg Acetylcysteine (Acetylcysteine 20%) 4 ml INH RQ6 [facility] Last Admin: 12/13/16 14:03 Dose: 4 ml Albuterol/Ipratropium (Duoneb 3 Mg/0.5 Mg (3 Ml) Ud) 3 ml INH RQ6 [facility] Last Admin: 12/13/16 14:04 Dose: 3 ml Aspirin (Ecotrin) 81 mg PO DAILY [facility] Last Admin: 12/13/16 09:38 Dose: 81 mg Carbidopa/Levodopa (Sinemet) 1 tab PO DAILY [facility] Last Admin: 12/13/16 09:38 Dose: 1 tab Diltiazem HCl (Cardizem Cd) 300 mg PO DAILY [facility] Last Admin: 12/13/16 09:38 Dose: 300 mg Guaifenesin (Mucinex La) 600 mg PO BID [facility] Last Admin: 12/13/16 09:38 Dose: 600 mg Aztreonam 1 gm/ Sodium (Chloride) 100 mls @ 100 mls/hr IVPB Q8H [facility] Last Admin: 12/13/16 13:41 Dose: 100 mls/hr Moxifloxacin HCl (Avelox Iv 400mg/250ml Ns) 400 mg in 250 mls @ 167 mls/hr IVPB Q24H [facility] Last Admin: 12/12/16 18:54 Dose: 167 mls/hr Losartan Potassium (Cozaar) 100 mg PO DAILY [facility] Last Admin: 12/13/16 09:38 Dose: 100 mg Methylprednisolone (Solu-Medrol) 40 mg IVP Q8 [facility] Last Admin: 12/13/16 13:42 Dose: 40 mg Pantoprazole Sodium (Protonix Inj) 40 mg IVP DAILY [facility] Last Admin: 12/13/16 09:38 Dose: 40 mg Rosuvastatin Calcium (Crestor) 5 mg PO HS [facility] Last Admin: 12/12/16 21:29 Dose: 5 mg - Labs Labs: 12/11/16 11:22 12/11/16 11:22 PT 12.4 SECONDS (9.7-12.2) H 12/07/16 09:32 INR 1.1 12/07/16 09:32 APTT 30 SECONDS (21-34) 12/07/16 09:32 - Constitutional Appears: No Acute Distress - Head Exam Head Exam: ATRAUMATIC, NORMAL INSPECTION, NORMOCEPHALIC - Eye Exam Eye Exam: EOMI, Normal appearance, PERRL Pupil Exam: NORMAL ACCOMODATION, PERRL - Respiratory Exam Respiratory Exam: Decreased Breath Sounds, Rales, Rhonchi - Cardiovascular Exam Cardiovascular Exam: REGULAR RHYTHM, +S1, +S2. absent: Murmur - GI/Abdominal Exam GI & Abdominal Exam: Soft, Normal Bowel Sounds. absent: Tenderness Assessment and Plan (1) Pneumonia Status: Suspected (2) Weakness generalized Status: Acute (3) COPD exacerbation Status: Acute (4) Diabetes mellitus Status: Chronic (5) Hypertension Status: Chronic (6) UTI (urinary tract infection) Status: Acute
[2016-12-13 16:35] VITALS: BP 150/69; PULSE 69; RESP 20; TEMP 97.5; O2SAT 95
--- NOTE | 2016-12-14 13:37 | CARD ---
APPROVED REPORT EXAM: Two-dimensional and M-mode echocardiogram with Doppler and color Doppler. Other Information Quality : PoorRhythm : Technically limited study due to body habitus. INDICATION Dyspnea Congestive Heart Failure COPD RISK FACTORS Hypertension Obesity Hyperlipidemia M-Mode DIMENSIONS Left Atrium (MM)4.65 (2.5-4.0cm)Aortic Root2.54 (2.2-3.7cm) Aortic Cusp Exc.1.88 (1.5-2.0cm) Mitral Valve MV E Cvvflces05.2cm/sMV A Dvrvjypa082.5cm/sE/A ratio0.7 TDI E/Lateral E'0.0E/Medial E'0.0 Tricuspid Valve TR Peak Eqppjjbq242fj/sTR Peak Gr.[id number] <Conclusion> tds. poor window. lv is off axis. la is moderately dilated. lv size appears normal. mild concnetric lvh with lvef of 65-70%. lv diastolic dysfunciton grade one. mitral & tv appears normal. mildly calcified trileaflet aortic valve but no as/ai. mild mr,tr with calculated pulonary systolic pressures of 38 mm of hg. no pericardial effusion.
== END 2016-12-13 17:35 | DRG 190 ==
LOC: C.ER 08:00 → C.5T 11:46 → C.6T 12-08 21:59 → C.5T 12-09 06:42
PROVIDERS: ADMIT Internal Medicine; ATTEND Internal Medicine
DX: J44.0 Chronic obstructive pulmonary disease with (acute) lower respiratory infection (principal); J18.9 Pneumonia, unspecified organism; I11.0 Hypertensive heart disease with heart failure; G20 Parkinson's disease; N39.0 Urinary tract infection, site not specified; I50.9 Heart failure, unspecified; D64.9 Anemia, unspecified; I10 Essential (primary) hypertension; E11.9 Type 2 diabetes mellitus without complications; M19.90 Unspecified osteoarthritis, unspecified site; E78.00 Pure hypercholesterolemia, unspecified; Z96.653 Presence of artificial knee joint, bilateral; J44.1 Chronic obstructive pulmonary disease with (acute) exacerbation

== ENCOUNTER 2016-12-15 20:30 | Inpatient (IN) | payer MEDICARE, OTHER ==
--- NOTE | 2016-12-15 21:21 | C.PDOC ---
History Of Present Illness 85 year old patient, with a past medical history of hypertension, hypercholesterolemia, anemia, arthritis, CHF, COPD, pulmonary embolism, Parkinson's disease, and pneumonia, presents to the ED complaining of vague and cramping abdominal pain since earlier today. Patient was given a laxative with transient improvement. Patient is from a alf and her PMD is Dr. Santiago. Patient denies fever, chills, nausea, vomiting, diarrhea, chest pain, or urinary symptoms. Time Seen by Provider: 12/15/16 20:47 Chief Complaint (Nursing): Abdominal Pain History Per: Patient History/Exam Limitations: no limitations Onset/Duration Of Symptoms: Hrs (earlier today) Current Symptoms Are (Timing): Still Present Context: Other Severity: Mild Pain Scale Rating Of: 3 Location Of Pain/Discomfort: Diffuse Quality Of Discomfort: Cramping, "Pain" Exacerbating Factors: None Alleviating Factors: None Last Bowel Movement: Today Recent travel outside of the [place]: No Additional History Per: [facility] Past Medical History Reviewed: Historical Data, Nursing Documentation, Vital Signs Vital Signs: Last Vital Signs Temp 97.8 F 12/15/16 21:12 Pulse 59 L 12/15/16 23:52 Resp 15 12/15/16 23:52 BP 136/91 H 12/15/16 23:52 Pulse Ox 96 12/16/16 01:40 - Medical History PMH: Anemia, Arthritis (hx. back surgery; B/L TKR), CHF (Around 10 yrs ago), COPD, HTN, Hypercholesterolemia, Parkinson's Disease, Pneumonia, Pulmonary Embolism - [facility] Procedures EXCISION OF DESCENDING COLON, ENDO, DIAGN (11/02/15) EXCISION OF ESOPHAGUS, ENDO, DIAGN (11/02/15) EXCISION OF STOMACH, ENDO, DIAGN (11/02/15) Family History: States: Unknown Family Hx - Social History Hx Tobacco Use: No Hx Alcohol Use: No Hx Substance Use: No - Immunization History Hx Tetanus Toxoid Vaccination: No Hx Influenza Vaccination: Yes Hx Pneumococcal Vaccination: Yes Review Of Systems Except As Marked, All Systems Reviewed And Found Negative. Constitutional: Negative for: Fever, Chills Cardiovascular: Negative for: Chest Pain Respiratory: Negative for: Shortness of Breath Gastrointestinal: Positive for: Abdominal Pain. Negative for: Nausea, Vomiting , Diarrhea Physical Exam - Physical Exam Appears: Non-toxic, No Acute Distress Skin: Warm, Dry Head: Atraumatic, Normacephalic Eye(s): bilateral: Normal Inspection, EOMI Oral Mucosa: Moist Neck: Normal ROM, Supple Chest: Symmetrical Cardiovascular: Rhythm Regular Respiratory: Normal Breath Sounds, No Rales, No Rhonchi, No Wheezing Gastrointestinal/Abdominal: Soft, No Tenderness, No Guarding, No Rebound, Other (obese) Back: Normal Inspection, No CVA Tenderness Extremity: Normal ROM Neurological/Psych: Oriented x3 ED Course And Treatment - Laboratory Results Result Diagrams: 12/15/16 21:09 12/15/16 22:46 Lab Interpretation: Abnormal (+ mild leukocytosis) ECG: Interpreted By Vt ECG Rhythm: Sinus Rhythm ECG Interpretation: Normal Rate From EC O2 Sat by Pulse Oximetry: 96 (Room air) Pulse Ox Interpretation: Normal - Radiology CXR: Interpreted by Vt CXR Interpretation: Yes: No Acute Disease - CT Scan/US Abdoment/pelvis CT Other Rad Studies (CT/US): Read By Radiologist, Radiology Report Reviewed CT/US Interpretation: IMPRESSION: Findings suggest partial distal small bowel obstruction. However the fluid filled dilated small bowel are. clustered in the left upper quadrant also raising possibility of focal enteritis in this region. Bilateral lower lung consolidation. Progress Note: Plan: -Abdomen/Pelvis CT. -EKG. -Labs. -Chest x-ray. NGT to R nares by this MD to 22 cm. approx 150 cc yelow stomach fluids. Well tolerated. no complications. -Toradol Reevaluation Time: 01:37 Reassessment Condition: Improved - Physician Consult Information Outcome Of Conversation: 0045: d/w Dr. Santiago- ok to Admit. 0050: d/w Dr. Cano and Surg Amando- aware, agree with NGT Medical Decision Making Medical Decision Making: SBO ? related to enteritis vs h/o abd surgery "many" years ago NGT to compress. Disposition Doctor Will See Patient In The: Hospital Counseled Patient/Family Regarding: Studies Performed, Diagnosis - Disposition Disposition: HOSPITALIZED Disposition Time: 01:39 Condition: GOOD - Clinical Impression Clinical Impression: Abdominal pain, Small bowel obstruction - Scribe Statement The provider has reviewed the documentation as recorded by the Scribe Carolynn Coughlin Provider Attestation: All medical record entries made by the Scribe were at my direction and personally dictated by me. I have reviewed the chart and agree that the record accurately reflects my personal performance of the history, physical exam, medical decision making, and the department course for this patient. I have also personally directed, reviewed, and agree with the discharge instructions and disposition.
--- NOTE | 2016-12-15 21:24 | C.PDOC ---
Time Seen by Provider: 12/15/16 20:47 Chief Complaint (Nursing): Abdominal Pain Past Medical History Vital Signs: Last Vital Signs Temp Pulse 65 12/15/16 20:35 Resp 21 12/15/16 20:35 BP 149/59 L 12/15/16 20:35 Pulse Ox 96 12/15/16 20:35 - Medical History PMH: Anemia, Arthritis (hx. back surgery; B/L TKR), CHF (Around 10 yrs ago), COPD, HTN, Hypercholesterolemia, Parkinson's Disease, Pneumonia, Pulmonary Embolism Denies: Chronic Kidney Disease - [facility] Procedures EXCISION OF DESCENDING COLON, ENDO, DIAGN (11/02/15) EXCISION OF ESOPHAGUS, ENDO, DIAGN (11/02/15) EXCISION OF STOMACH, ENDO, DIAGN (11/02/15) Family History: States: Unknown Family Hx - Social History Hx Tobacco Use: No Hx Alcohol Use: No Hx Substance Use: No - Immunization History Hx Tetanus Toxoid Vaccination: No Hx Influenza Vaccination: Yes Hx Pneumococcal Vaccination: Yes ED Course And Treatment O2 Sat by Pulse Oximetry: 96
[2016-12-15 21:45] LABS: EOS % 0.1 % (0.0-4.0); HEMATOCRIT 39.6 % (34.0-47.0); LYMPH # 0.9 K/uL (1.0-4.3); LYMPH % 7.8 % (20.0-40.0); MEAN CELL VOLUME 83.1 fL (81.0-99.0); MEAN CORPUSCULAR HGB CONC 32.5 g/dL (33.0-37.0); MEAN PLATELET VOLUME 7.4 fL (7.2-11.7); MONO # 0.4 K/uL (0.0-0.8); MONO % 3.3 % (0.0-10.0); NRBC % 0.1 % (0.0-2.0); PLATELET COUNT 230 K/uL (130-400); WHITE BLOOD COUNT 12.1 K/uL (4.8-10.8)
[2016-12-15 22:12] LABS: MYELOCYTE 1 % (0-0); NEUTROPHIL 92 % (50-75); TOTAL CELLS COUNTED 100
[2016-12-15] MEDS ORDERED: Iohexol 350mg/ml 100 ML ONE (22:54)
[2016-12-15 23:02] LABS: CHLORIDE 99 mmol/L (98-107); POTASSIUM 5.1 mmol/L (3.6-5.2); SODIUM 138 mmol/L (132-148)
[2016-12-15 23:04] LABS: ALKALINE PHOSPHATASE 52 U/L (38-126); AST/SGOT 18 U/L (14-36); BILIRUBIN,TOTAL 0.6 mg/dL (0.2-1.3); CARBON DIOXIDE 26 mmol/L (22-30); GFR AFRICAN-AMERICAN 57; TOTAL PROTEIN 6.2 g/dL (6.3-8.3)
[2016-12-15 23:05] LABS: ALT/SGPT 15 U/L (9-52); BLOOD UREA NITROGEN 37 mg/dL (7-17); CALCIUM 8.6 mg/dl (8.6-10.4); GLUCOSE,RANDOM 137 mg/dL (65-105)
[2016-12-15 23:29] LABS: RBC URINE 3 /hpf (0-3); URINE BACTERIA RARE (<OCC); URINE BILIRUBIN NEGATIVE (NEGATIVE); URINE BLOOD NEGATIVE (NEGATIVE); URINE COLOR Yellow (YELLOW); URINE GLUCOSE (UA) NORMAL (Normal); URINE KETONE TRACE mg/dL (NEGATIVE); URINE LEUKOCYTE ESTERASE 1+ Leu/uL (Negative); URINE PROTEIN NEGATIVE (NEGATIVE); URINE UROBILINOGEN NORMAL mg/dL (0.2-1.0); WBC URINE 15 /hpf (0-5)
[2016-12-16] MEDS ORDERED: Dextrose 5%/0.9% NS 1,000 ML IV SCH (01:00)
[2016-12-16] MEDS ORDERED: Dextrose 5%-0.225% NS 1,000 ML IV SCH (01:30)
--- NOTE | 2016-12-16 01:36 | CT ---
EXAM: CT Abdomen and Pelvis With Intravenous Contrast CLINICAL HISTORY: 85 years old, female; Pain; Abdominal pain; Prior surgery; Surgery type: Back pain; Additional info: Vague epigastric pain TECHNIQUE: Axial computed tomography images of the abdomen and pelvis with intravenous contrast. This CT exam was performed using one or more of the following dose reduction techniques: automated exposure control, adjustment of the mA and/or kV according to patient size, and/or use of iterative reconstruction technique. Coronal and sagittal reformatted images were created and reviewed. CONTRAST: 100 mL of [id number] administered intravenously. EXAM DATE/TIME: 12/15/2016 9:09 PM COMPARISON: [facility] - DENSITOMETRY HIP SPINE 02/04/2016 11:44:00 AM FINDINGS: Large areas of consolidation in the lower lungs bilaterally. Similar finding described in recent report. Actual images were not provided for correlation. IVC filter. Cholecystectomy clips are present.There is mild intrahepatic duct dilation likely secondary to cholecystectomy. The spleen is normal. The pancreas is normal. No hydronephrosis. There is minimal perinephric stranding. There are bilateral hypoattenuating renal lesions some of which represent cysts and some which are too small to accurately characterize. There are dilated fluid filled small bowel loops mainly in the left upper quadrant measuring up to 3.3 cm in diameter. There is slightly prominent wall and fold enhancement in these loops. The distal ileum is decompressed. In the right lower quadrant, on coronal image 55 and axial images 140 through 155, there is transition from 3.3 cm stool-filled small bowel loop to decompressed loop suggestive of partial distal small bowel obstruction Colonic diverticulosis. No evidence of appendicitis. Degenerative changes in osseous structures. IMPRESSION: Findings suggest partial distal small bowel obstruction. However the fluid filled dilated small bowel are clustered in the left upper quadrant also raising possibility of focal enteritis in this region. Bilateral lower lung consolidation.
[2016-12-16] MEDS ORDERED: Dextrose 5%/0.45% NS 1,000 ML IV ONE (01:39)
[2016-12-16] MEDS: Dextrose 5%/0.45% NS 1,000 ML IV SCH ×2 (01:53→14:30)
--- NOTE | 2016-12-16 02:43 | CP.PCM.CON ---
History of Present Illness - History of Present Illness History of Present Illness: GENERAL SURGERY CONSULT NOTE FOR DR. CUENCA 85yo F with PMHx of CHF, COPD, PE, s/p abdominal surgery who presents to the ED with abdominal pain. Patient was recently admitted from 12/07/16 to 12/13/16 for SOB, COPD, fever, UTI. She was discharged to [place]. She started having vague cramping abdominal pain yesterday. She had a small bowel movement and was given an enema. After that she had multiple bowel movements. She was then brought to [facility] ER for evaluation. She denies nausea or vomiting but had some gagging. Her pain was located in the epigastric area but is now diffuse. She had never had a bowel obstruction before. She reports bilateral calf tenderness that began earlier today as well. PMHx: HTN, hyperlipidemia, anemia, arthritis, CHF, COPD, PE, Parkinsons, pneumonia Surgeries: bilateral knee replacement, back surgery, IVC filter, skin graft, cholecystectomy, midline laparotomy incision Allergies: penicillins Social history: denies etoh, tobacco use Review of Systems - Review of Systems All systems: reviewed and no additional remarkable complaints except (as per HPI ) Past Patient History - Infectious Disease Hx of Infectious Diseases: None - Past Medical History & Family History Past Medical History?: Yes - Past Social History Smoking Status: Never Smoked - CARDIAC Hx Congestive Heart Failure: Yes (Around 10 yrs ago) Hx Hypercholesterolemia: Yes Hx Hypertension: Yes - PULMONARY Hx Chronic Obstructive Pulmonary Disease (COPD): Yes Hx Pneumonia: Yes Hx Pulmonary Embolism: Yes - NEUROLOGICAL Hx Parkinson's Disease: Yes - HEENT Hx Cataracts: Yes (hx, cataract surgery 4 yrs ago) Other/Comment: wear eyeglasses - RENAL Hx Chronic Kidney Disease: No - ENDOCRINE/METABOLIC Hx Diabetes Mellitus Type 2: Yes - HEMATOLOGICAL/ONCOLOGICAL Hx Anemia: Yes - INTEGUMENTARY Hx Dermatological Problems: No - MUSCULOSKELETAL/RHEUMATOLOGICAL Hx Arthritis: Yes (hx. back surgery; B/L TKR) - GASTROINTESTINAL Hx Gastrointestinal Disorders: No - GENITOURINARY/GYNECOLOGICAL Hx Genitourinary Disorders: No Hx Urinary Tract Infection: Yes - PSYCHIATRIC Hx Substance Use: No - SURGICAL HISTORY Hx Cataract Extraction: Yes Hx Joint Replacement: Yes (Bilateral knee replacement) Other/Comment: Back surgery (Bone fusion), Gallbladder surgery, skin graft surgery left leg, green filter placement - ANESTHESIA Hx Anesthesia: Yes Hx Anesthesia Reactions: No Hx Malignant Hyperthermia: No Meds Allergies/Adverse Reactions: Allergies Allergy/AdvReac Type Severity Reaction Status Date / Time Penicillins Allergy Verified 11/01/15 12:32 - Medications Medications: Current Medications Acetylcysteine (Acetylcysteine 20%) 4 ml INH RQ6 [facility] Albuterol/Ipratropium (Duoneb 3 Mg/0.5 Mg (3 Ml) Ud) 3 ml INH RQ6 [facility] Carbidopa/Levodopa (Sinemet) 1 tab PO DAILY [facility] Diltiazem HCl (Cardizem Cd) 300 mg PO DAILY [facility] Enoxaparin Sodium (Lovenox) 40 mg SC DAILY [facility] Dextrose/Sodium Chloride (Dextrose 5%/0.9% Ns 1000 Ml) 1,000 mls @ 50 mls/hr IV .Q20H [facility] Last Admin: 12/16/16 01:37 Dose: Not Given Ciprofloxacin (Cipro 400mg/200ml Dsw) 400 mg in 200 mls @ 133 mls/hr IVPB Q12H [facility] Metronidazole (Flagyl) 500 mg in 100 mls @ 100 mls/hr IVPB Q8 [facility] Dextrose/Sodium Chloride (Dextrose 5%/0.45% Ns 1000 Ml) 1,000 mls @ 80 mls/hr IV .[id number] [facility] Last Admin: 12/16/16 01:53 Dose: 80 mls/hr Losartan Potassium (Cozaar) 100 mg PO DAILY [facility] Morphine Sulfate (Morphine) 2 mg IVP Q4 PRN PRN Reason: pain Pantoprazole Sodium (Protonix Inj) 40 mg IVP DAILY [facility] Rosuvastatin Calcium (Crestor) 5 mg PO HS [facility] Physical Exam - Constitutional Appears: Non-toxic, No Acute Distress - Head Exam Head Exam: ATRAUMATIC, NORMAL INSPECTION - Respiratory Exam Respiratory Exam: NORMAL BREATHING PATTERN. absent: Respiratory Distress - Cardiovascular Exam Cardiovascular Exam: +S1, +S2 - GI/Abdominal Exam GI & Abdominal Exam: Soft, Tenderness (mild tenderness on deep palpation). absent: Distended, Firm, Guarding, Rebound, Rigid - Neurological Exam Neurological exam: Alert - Psychiatric Exam Psychiatric exam: Anxious (after NG tube placement) - Skin Skin Exam: Dry, Normal Color, Warm Results - Vital Signs Recent Vital Signs: Last Vital Signs Temp 97.8 F 12/15/16 21:12 Pulse 58 L 12/16/16 01:58 Resp 13 12/16/16 01:58 BP 156/59 H 12/16/16 01:58 Pulse Ox 93 L 12/16/16 01:58 - Labs Result Diagrams: 12/15/16 21:09 12/15/16 22:46 Assessment & Plan - Assessment and Plan (Free Text) Assessment: 85yo F with PMHx of CHF, COPD, PE, s/p abdominal surgery who presented with abdominal pain and was found to have partial SBO. - Afebrile, VSS - WBC 12.1 - CT: dilated fluid filled SB loops mainly in LUQ, slightly prominent wall and fold enhancement of these loops, distal ileum decompressed, RLQ transition point , consistent w/ distal partial SBO - NPO - IV Fluids - Zofran & Morphine PRN - NG tube placed in ED, had 150cc output so far - Discussed plan with Dr. Jerome Reed PGY-2
[2016-12-16] MEDS: Ciprofloxacin 400mg/200ml D5W 400 MG/200 ML BAG IVPB SCH ×2 (02:55→14:51)
[2016-12-16] MEDS: metroNIDAZOLE IV 500 mg/100 ml 500 MG/100 ML BAG IVPB SCH ×3 (06:06→21:19)
[2016-12-16] MEDS: Albuterol-Ipratrop 3 mg / 0.5 (3 ml) UD INH SCH ×3 (07:30→19:44)
[2016-12-16] MEDS: Acetylcysteine 20% Inhal Soln (4ml) INH SCH ×3 (07:30→19:45)
[2016-12-16] MEDS: diltiaZEM 300 mg/24 Hours CD Cap PO SCH (10:31)
[2016-12-16] MEDS: Enoxaparin 40 mg Syringe SC SCH (10:32)
--- NOTE | 2016-12-16 12:26 | RAD ---
HISTORY: Status post nasogastric tube placement. Portable study 02:19. COMPARISON: December 15, 2016. FINDINGS: LUNGS: Lower lobe infiltrates are stable. PLEURA: No significant pleural effusion identified, no pneumothorax apparent. CARDIOVASCULAR: No radiographic findings to suggest acute or significant cardiovascular disease. OSSEOUS STRUCTURES: No significant abnormalities. VISUALIZED UPPER ABDOMEN: Nasogastric tube courses through the esophagus, the tip is in good position in the stomach. OTHER FINDINGS: None. IMPRESSION: Satisfactory position of recently placed nasogastric tube. Stable lower lobe infiltrates.
--- NOTE | 2016-12-16 12:47 | RAD ---
PROCEDURE: CHEST RADIOGRAPH, 1 VIEW. Semi erect study 21:16. HISTORY: Abdominal pain. COMPARISON: 12/11/2016. FINDINGS: LUNGS: Stable bilateral lower lobe infiltrates. PLEURA: Stable pleural effusions. CARDIOVASCULAR: No radiographic findings to suggest acute or significant cardiovascular disease. OSSEOUS STRUCTURES: No significant abnormalities. VISUALIZED UPPER ABDOMEN: Normal. OTHER FINDINGS: None. IMPRESSION: No significant interval change compared to the prior examination(s).
[2016-12-16] MEDS: Neomycin/Polymyxin/Hydrocort Otic Soln BOTTLE AU SCH ×2 (14:00→21:18)
[2016-12-16] MEDS ORDERED: Chloroxylenol/HC/Pramoxine 10 ml Otic Soln AU SCH (22:00)
[2016-12-17] MEDS: Albuterol-Ipratrop 3 mg / 0.5 (3 ml) UD INH SCH ×4 (01:54→21:02)
[2016-12-17] MEDS: Acetylcysteine 20% Inhal Soln (4ml) INH SCH ×5 (01:56→21:03)
[2016-12-17] MEDS: Ciprofloxacin 400mg/200ml D5W 400 MG/200 ML BAG IVPB SCH ×2 (02:33→14:16)
[2016-12-17] MEDS: Dextrose 5%/0.45% NS 1,000 ML IV SCH ×3 (03:00→16:22)
[2016-12-17] MEDS: metroNIDAZOLE IV 500 mg/100 ml 500 MG/100 ML BAG IVPB SCH ×3 (05:34→22:21)
[2016-12-17 07:51] LABS: BASO % 0.2 % (0.0-2.0); EOS % 0.3 % (0.0-4.0); HEMATOCRIT 31.8 % (34.0-47.0); LYMPH # 1.1 K/uL (1.0-4.3); LYMPH % 11.9 % (20.0-40.0); MEAN CELL VOLUME 82.2 fL (81.0-99.0); MEAN CORPUSCULAR HEMOGLOBIN 26.7 pg (27.0-31.0); MEAN CORPUSCULAR HGB CONC 32.4 g/dL (33.0-37.0); MEAN PLATELET VOLUME 6.7 fL (7.2-11.7); MONO # 0.3 K/uL (0.0-0.8); MONO % 2.8 % (0.0-10.0); RED CELL DISTRIBUTION WIDTH 15.8 % (11.5-14.5); WHITE BLOOD COUNT 9.4 K/uL (4.8-10.8)
--- NOTE | 2016-12-17 07:55 | CP.PCM.HP ---
History of Present Illness - History of Present Illness History of Present Illness: CC: abdominal pain HPI:Pt is an elderly 85 yr old AA female recently placed in [facility] with PMHx of DM , HTN, Hyperlipidemia, CHF, COPD, PE, s/p abdominal surgery who presents to the ED with abdominal pain. Patient was recently admitted from 12/07/16 to 12/13/16 for SOB, COPD, fever, UTI. She was discharged to [facility]. She started having vague cramping abdominal pain yesterday. She had a small bowel movement and was given an enema. After that she had multiple bowel movements. She was then brought to [facility] ER for evaluation. She denies nausea or vomiting but had some gagging. Her pain was located in the epigastric area but is now diffuse. She had never had a bowel obstruction before. She reports bilateral calf tenderness that began earlier today as well.pt reports the pain to be sharp at paraumblical area initially. PMHx: HTN, hyperlipidemia, anemia, arthritis, CHF, COPD, PE, Parkinsons, pneumonia Surgeries: bilateral knee replacement, back surgery, IVC filter, skin graft, cholecystectomy, midline laparotomy incision Allergies: penicillins Social history: denies etoh, tobacco use Present on Admission - Present on Admission Any Indicators Present on Admission: No Review of Systems - Review of Systems Systems not reviewed;Unavailable: Acuity of Condition - Constitutional Constitutional: Fatigue, Lethargy. absent: As Per HPI, Anorexia, Chills, Daytime Sleepiness, Excessive Sweating, Fever, Frequent Falls, Headache, Increased Appetite, Malaise, Night Sweats, Snoring, Sleep Apnea, Weight Gain, Weight Loss, Weakness, Other - EENT Eyes: absent: As Per HPI, Blind Spots, Blurred Vision, Change in Vision, Decreased Night Vision, Diplopia, Discharge, Dry Eye, Exophthalmos, Floaters, Irritation, Itchy Eyes, Loss of Peripheral Vision, Pain, Photophobia, Requires Corrective Lenses, Sees Flashes, Spots in Vision, Tunnel Vision, Other Visual Disturbances, Loss of Vision, Other Nose/Mouth/Throat: absent: As Per HPI, Epistaxis, Nasal Congestion, Nasal Discharge, Nasal Obstruction, Nasal Trauma, Nose Pain, Post Nasal Drip, Sinus Pain, Sinus Pressure, Bleeding Gums, Change in Voice, Dental Pain, Dry Mouth, Dysphagia, Halitosis, Hoarsness, Lip Swelling, Mouth Lesions, Mouth Pain, Odynophagia, Sore Throat, Throat Swelling, Tongue Swelling, Facial Pain, Neck Pain, Neck Mass, Other - Cardiovascular Cardiovascular: absent: As Per HPI, Acrocyanosis, Chest Pain, Chest Pain at Rest , Chest Pain with Activity, Claudication, Diaphoresis, Dyspnea, Dyspnea on Exertion, Edema, Irregular Heart Rhythm, Pain Radiating to Arm/Neck/Jaw, Leg Edema, Leg Ulcers, Lightheadedness, Orthopnea, Palpitations, Paroxysmal Nocturnal Dyspnea, Pedal Edema, Radiating Pain, Rapid Heart Rate, Slow Heart Rate, Syncope, Other - Respiratory Respiratory: absent: As Per HPI, Cough, Dyspnea, Hemoptysis, Dyspnea on Exertion , Wheezing, Snoring, Stridor, Pain on Inspiration, Chest Congestion, Excessive Mucous Production, Change in Mucous Color, Pain with Coughing, Other - Gastrointestinal Gastrointestinal: Abdominal Pain, Cramping - Musculoskeletal Additional comments: right knee pain - Integumentary Integumentary: absent: As Per HPI, Acne, Alopecia, Bleeding Lesions, Change in Hair, Change in Nails, Change in Pigmentation, Changing Lesions, Dry Skin, Erythema, Furuncle, Hirsutism, Lesions, New Lesions, Non-Healing Lesions, Photosensitivity, Pruritus, Rash, Skin Pain, Skin Ulcer, Sores, Striae, Swelling , Unusual Bruising, Wounds, Jaundice, Other - Neurological Neurological: Tremor - Endocrine Endocrine: absent: As Per HPI, Change in Body Appearance, Change in Libido, Cold Intolorance, Deepening of Voice, Excessive Sweating, Fatigue, Flushing, Heat Intolorance, Increase in Ring/Shoe/Hat Size, Palpitations, Polydipsia, Polyphagia, Polyuria, Other Past Patient History - Infectious Disease Hx of Infectious Diseases: None - Past Medical History & Family History Past Medical History?: Yes - Past Social History Smoking Status: Never Smoked - CARDIAC Hx Congestive Heart Failure: Yes (Around 10 yrs ago) Hx Hypercholesterolemia: Yes Hx Hypertension: Yes - PULMONARY Hx Chronic Obstructive Pulmonary Disease (COPD): Yes Hx Pneumonia: Yes Hx Pulmonary Embolism: Yes - NEUROLOGICAL Hx Parkinson's Disease: Yes - HEENT Hx Cataracts: Yes (hx, cataract surgery 4 yrs ago) Other/Comment: wear eyeglasses - RENAL Hx Chronic Kidney Disease: No - ENDOCRINE/METABOLIC Hx Diabetes Mellitus Type 2: Yes - HEMATOLOGICAL/ONCOLOGICAL Hx Anemia: Yes - INTEGUMENTARY Hx Dermatological Problems: No - MUSCULOSKELETAL/RHEUMATOLOGICAL Hx Arthritis: Yes (hx. back surgery; B/L TKR) - GASTROINTESTINAL Hx Gastrointestinal Disorders: No - GENITOURINARY/GYNECOLOGICAL Hx Genitourinary Disorders: No Hx Urinary Tract Infection: Yes - PSYCHIATRIC Hx Substance Use: No - SURGICAL HISTORY Hx Cataract Extraction: Yes Hx Joint Replacement: Yes (Bilateral knee replacement) Other/Comment: Back surgery (Bone fusion), Gallbladder surgery, skin graft surgery left leg, green filter placement - ANESTHESIA Hx Anesthesia: Yes Hx Anesthesia Reactions: No Hx Malignant Hyperthermia: No Meds Allergies/Adverse Reactions: Allergies Allergy/AdvReac Type Severity Reaction Status Date / Time Penicillins Allergy Verified 11/01/15 12:32 Physical Exam - Constitutional Appears: In Acute Distress Additional comments: pt is in pain - Eye Exam Eye Exam: EOMI, Normal appearance, PERRL Pupil Exam: NORMAL ACCOMODATION, PERRL - Respiratory Exam Respiratory Exam: Clear to Auscultation Bilateral, NORMAL BREATHING PATTERN - Cardiovascular Exam Cardiovascular Exam: REGULAR RHYTHM - GI/Abdominal Exam GI & Abdominal Exam: Guarding, Rebound, Tenderness Additional comments: diffuse abdominal tenderness more in paraumbilical area on right side associated with gaurding and rigidity - Neurological Exam Neurological exam: Alert, CN II-XII Intact, Normal Gait, Oriented x3, Reflexes Normal Additional comments: right sided tremor - Psychiatric Exam Psychiatric exam: Anxious - Skin Additional comments: skin is flushed Results - Vital Signs Recent Vital Signs: Last Vital Signs Temp 98.4 F 12/17/16 01:06 Pulse 62 12/17/16 01:06 Resp 20 12/17/16 01:06 BP 160/71 H 12/17/16 01:06 Pulse Ox 95 12/17/16 01:06 - Labs Result Diagrams: 01/11/17 11:28 01/11/17 07:15 Assessment & Plan (1) Abdominal pain Assessment and Plan: rule out mass Small bowel obstruction eneteritis Status: Acute (2) Small bowel obstruction Assessment and Plan: rule out intestinal obstruction' GI surgery consult Status: Acute (3) Diabetes mellitus Status: Chronic Priority: Low (4) Hypertension Status: Chronic Priority: Low
--- NOTE | 2016-12-17 08:04 | CP.PCM.PN ---
Subjective - Date & Time of Evaluation Date of Evaluation: 12/17/16 Time of Evaluation: 10:23 - Subjective Subjective: Pt seen and examined, abdominal pain under evaluation, Pt is for GI consult Objective - Vital Signs/Intake and Output Vital Signs (last 24 hours): Temp Pulse Resp BP Pulse Ox 98.4 F 62 20 160/71 H 95 12/17/16 01:06 12/17/16 01:06 12/17/16 01:06 12/17/16 01:06 12/17/16 01:06 Intake and Output: 12/17/16 12/17/16 06:59 18:59 Intake Total 740 Output Total 100 50 Balance 640 -50 - Medications Medications: Current Medications Acetylcysteine (Acetylcysteine 20%) 4 ml INH RQ6 [facility] Last Admin: 12/17/16 01:56 Dose: 4 ml Albuterol/Ipratropium (Duoneb 3 Mg/0.5 Mg (3 Ml) Ud) 3 ml INH RQ6 [facility] Last Admin: 12/17/16 01:54 Dose: 3 ml Carbidopa/Levodopa (Sinemet) 1 tab PO DAILY [facility] Last Admin: 12/16/16 10:32 Dose: 1 tab Diltiazem HCl (Cardizem Cd) 300 mg PO DAILY [facility] Last Admin: 12/16/16 10:31 Dose: 300 mg Enoxaparin Sodium (Lovenox) 40 mg SC DAILY [facility] Last Admin: 12/16/16 10:32 Dose: 40 mg Ciprofloxacin (Cipro 400mg/200ml Dsw) 400 mg in 200 mls @ 133 mls/hr IVPB Q12H [facility] Last Admin: 12/17/16 02:33 Dose: 133 mls/hr Metronidazole (Flagyl) 500 mg in 100 mls @ 100 mls/hr IVPB Q8 [facility] Last Admin: 12/17/16 05:34 Dose: 100 mls/hr Dextrose/Sodium Chloride (Dextrose 5%/0.45% Ns 1000 Ml) 1,000 mls @ 80 mls/hr IV .[id number] [facility] Last Admin: 12/17/16 03:00 Dose: 80 mls/hr Losartan Potassium (Cozaar) 100 mg PO DAILY [facility] Last Admin: 12/16/16 10:32 Dose: 100 mg Morphine Sulfate (Morphine) 2 mg IVP Q4 PRN PRN Reason: pain Last Admin: 12/16/16 18:49 Dose: 2 mg Neomycin/Polymyxin/Hydrocortisone (Cortisporin Otic Soln) 2 drop AU QID [facility] Last Admin: 12/16/16 21:18 Dose: 2 drop Pantoprazole Sodium (Protonix Inj) 40 mg IVP DAILY [facility] Last Admin: 12/16/16 10:32 Dose: 40 mg Rosuvastatin Calcium (Crestor) 5 mg PO HS [facility] Last Admin: 12/16/16 21:19 Dose: 5 mg - Constitutional Appears: No Acute Distress - Head Exam Head Exam: ATRAUMATIC, NORMAL INSPECTION, NORMOCEPHALIC - Respiratory Exam Respiratory Exam: Clear to Ausculation Bilateral, NORMAL BREATHING PATTERN - Cardiovascular Exam Cardiovascular Exam: REGULAR RHYTHM, +S1, +S2. absent: Murmur - GI/Abdominal Exam GI & Abdominal Exam: Guarding, Rigid, Tenderness, Rebound Additional comments: right sided paraumbilical tenderness - Neurological Exam Neurological Exam: Alert, Awake, CN II-XII Intact, Normal Gait, Oriented x3 - Psychiatric Exam Psychiatric exam: Normal Affect, Normal Mood Assessment and Plan (1) Abdominal pain Status: Acute (2) Small bowel obstruction Status: Acute (3) Diabetes mellitus Status: Chronic (4) Hypertension Status: Chronic
[2016-12-17 08:13] LABS: CHLORIDE 100 mmol/L (98-107); POTASSIUM 3.6 mmol/L (3.6-5.2); SODIUM 136 mmol/L (132-148)
[2016-12-17 08:15] LABS: BILIRUBIN,TOTAL 0.5 mg/dL (0.2-1.3); CARBON DIOXIDE 27 mmol/L (22-30); GFR AFRICAN-AMERICAN > 60
[2016-12-17 08:16] LABS: ALKALINE PHOSPHATASE 44 U/L (38-126); ALT/SGPT 22 U/L (9-52); AST/SGOT 16 U/L (14-36); BLOOD UREA NITROGEN 23 mg/dL (7-17); CALCIUM 7.8 mg/dl (8.6-10.4); GLUCOSE,RANDOM 100 mg/dL (65-105); TOTAL PROTEIN 5.2 g/dL (6.3-8.3)
[2016-12-17] MEDS: Neomycin/Polymyxin/Hydrocort Otic Soln BOTTLE AU SCH ×5 (10:47→22:17)
[2016-12-17] MEDS: Enoxaparin 40 mg Syringe SC SCH (10:48)
[2016-12-17] MEDS: diltiaZEM 300 mg/24 Hours CD Cap PO SCH (10:49)
[2016-12-17] MEDS: Benzocaine/Menthol (Cepacol) Lozenge MT PRN ×4 (11:14→22:18)
[2016-12-17] MEDS: Nitroglycerin 2% Ointment Foilpak UD TOP SCH ×2 (11:17→18:12)
--- NOTE | 2016-12-17 12:27 | CP.PCM.CON ---
<Christopher Zhang - Last Filed: 12/17/16 12:20> History of Present Illness - History of Present Illness History of Present Illness: PGY4 GI Fellow Consult Note Patient is an 85yo female with PMHx significant for HTN, hyperlipidemia, arthritis, CHF, COPD, PE not on anticoagulation, Parkinson's disease, diverticulosis who presented to the ED with abdominal pain. The patient was recently admitted for a COPD exacerbation along with UTI and was discharged to [facility] on 12/13/16. While in [facility], patient developed diffuse abdominal pain along with nausea and vomiting. She had not passed stool or flatus and was sent back to the ED for further evaluation. On admission, a CT of the abdomen revealed a partial small bowel obstruction in the distal small intestine. She had an NGT placed for bowel decompression but still has diffuse abdominal discomfort. She too is complaining of sore throat from NGT irritation. Denies any flatus or BM since admission. She has never had anything like this in the past. PMHx: See HPI PSHx: B/L knee replacement, IVC filter placement, back surgery, cholecystectomy FHx: Discussed with patient and she is unsure; denies any significant family history Social: Denies Endo: 10/2015 - EGD/Colonoscopy - [place] Class B esophagitis, HP negative gastritis; diverticulosis Review of Systems - Constitutional Constitutional: absent: Anorexia, Chills, Fever - EENT Eyes: absent: Change in Vision Nose/Mouth/Throat: Sore Throat - Cardiovascular Cardiovascular: absent: Chest Pain, Dyspnea, Edema - Respiratory Respiratory: absent: Cough, Dyspnea, Excessive Mucous Production - Gastrointestinal Gastrointestinal: Abdominal Pain, Bloating, Constipation, Nausea. absent: Diarrhea, Dyspepsia, Dysphagia, Early Satiety, Hematemesis, Hematochezia, Odynophagia, Vomiting - Genitourinary Genitourinary: absent: Dysuria, Urinary Frequency, Urinary Urgency - Musculoskeletal Musculoskeletal: absent: Back Pain, Neck Pain - Integumentary Integumentary: absent: New Lesions, Rash - Neurological Neurological: absent: Dizziness, Numbness, Focal Weakness - Psychiatric Psychiatric: absent: Anxiety, Depression - Endocrine Endocrine: absent: Polydipsia, Polyphagia, Polyuria - Hematologic/Lymphatic Hematologic: absent: Easy Bleeding, Easy Bruising, Lymphadenopathy Past Patient History - Infectious Disease Hx of Infectious Diseases: None - Past Medical History & Family History Past Medical History?: Yes - Past Social History Smoking Status: Never Smoked - CARDIAC Hx Congestive Heart Failure: Yes (Around 10 yrs ago) Hx Hypercholesterolemia: Yes Hx Hypertension: Yes - PULMONARY Hx Chronic Obstructive Pulmonary Disease (COPD): Yes Hx Pneumonia: Yes Hx Pulmonary Embolism: Yes - NEUROLOGICAL Hx Parkinson's Disease: Yes - HEENT Hx Cataracts: Yes (hx, cataract surgery 4 yrs ago) Other/Comment: wear eyeglasses - RENAL Hx Chronic Kidney Disease: No - ENDOCRINE/METABOLIC Hx Diabetes Mellitus Type 2: Yes - HEMATOLOGICAL/ONCOLOGICAL Hx Anemia: Yes - INTEGUMENTARY Hx Dermatological Problems: No - MUSCULOSKELETAL/RHEUMATOLOGICAL Hx Arthritis: Yes (hx. back surgery; B/L TKR) - GASTROINTESTINAL Hx Gastrointestinal Disorders: No - GENITOURINARY/GYNECOLOGICAL Hx Genitourinary Disorders: No Hx Urinary Tract Infection: Yes - PSYCHIATRIC Hx Substance Use: No - SURGICAL HISTORY Hx Cataract Extraction: Yes Hx Joint Replacement: Yes (Bilateral knee replacement) Other/Comment: Back surgery (Bone fusion), Gallbladder surgery, skin graft surgery left leg, green filter placement - ANESTHESIA Hx Anesthesia: Yes Hx Anesthesia Reactions: No Hx Malignant Hyperthermia: No Meds Allergies/Adverse Reactions: Allergies Allergy/AdvReac Type Severity Reaction Status Date / Time Penicillins Allergy Verified 11/01/15 12:32 - Medications Medications: Current Medications Acetylcysteine (Acetylcysteine 20%) 4 ml INH RQ6 [facility] Last Admin: 12/17/16 07:36 Dose: 4 ml Albuterol/Ipratropium (Duoneb 3 Mg/0.5 Mg (3 Ml) Ud) 3 ml INH RQ6 [facility] Last Admin: 12/17/16 07:36 Dose: 3 ml Benzocaine/Menthol (Cepacol Sore Throat) 1 jacquelyn MT Q2H PRN PRN Reason: Sore Throat Last Admin: 12/17/16 11:14 Dose: 1 jacquelyn Carbidopa/Levodopa (Sinemet) 1 tab PO DAILY [facility] Last Admin: 12/17/16 10:48 Dose: 1 tab Diltiazem HCl (Cardizem Cd) 300 mg PO DAILY [facility] Last Admin: 12/17/16 10:49 Dose: 300 mg Enoxaparin Sodium (Lovenox) 40 mg SC DAILY [facility] Last Admin: 12/17/16 10:48 Dose: 40 mg Ciprofloxacin (Cipro 400mg/200ml Dsw) 400 mg in 200 mls @ 133 mls/hr IVPB Q12H [facility] Last Admin: 12/17/16 02:33 Dose: 133 mls/hr Metronidazole (Flagyl) 500 mg in 100 mls @ 100 mls/hr IVPB Q8 [facility] Last Admin: 12/17/16 05:34 Dose: 100 mls/hr Dextrose/Sodium Chloride (Dextrose 5%/0.45% Ns 1000 Ml) 1,000 mls @ 80 mls/hr IV .[id number] [facility] Last Admin: 12/17/16 11:19 Dose: 80 mls/hr Losartan Potassium (Cozaar) 100 mg PO DAILY [facility] Last Admin: 12/17/16 10:48 Dose: 100 mg Morphine Sulfate (Morphine) 2 mg IVP Q4 PRN PRN Reason: pain Last Admin: 12/17/16 08:29 Dose: 2 mg Neomycin/Polymyxin/Hydrocortisone (Cortisporin Otic Soln) 2 drop AU QID [facility] Last Admin: 12/17/16 10:47 Dose: 2 drop Nitroglycerin (Nitro-Bid 2% Oint) 1 ea TOP Q6 [facility] Last Admin: 12/17/16 11:17 Dose: 1 ea Pantoprazole Sodium (Protonix Inj) 40 mg IVP DAILY [facility] Last Admin: 12/17/16 10:48 Dose: 40 mg Rosuvastatin Calcium (Crestor) 5 mg PO HS [facility] Last Admin: 12/16/16 21:19 Dose: 5 mg Physical Exam - Constitutional Appears: In Acute Distress (pain) - Eye Exam Eye Exam: EOMI, PERRL - ENT Exam ENT Exam: Mucous Membranes Dry Additional comments: NGT in place - Respiratory Exam Respiratory Exam: Clear to Auscultation Bilateral. absent: Rales, Rhonchi, Wheezes - Cardiovascular Exam Cardiovascular Exam: RRR, +S1, +S2 - GI/Abdominal Exam GI & Abdominal Exam: Distended, Normal Bowel Sounds, Soft, Tenderness (diffusely ). absent: Firm, Guarding, Organomegaly, Rigid - Extremities Exam Additional comments: 1+ LE edema - Neurological Exam Neurological exam: Alert, Oriented x3 - Psychiatric Exam Psychiatric exam: Normal Affect, Normal Mood - Skin Skin Exam: Dry, Warm Results - Vital Signs Recent Vital Signs: Last Vital Signs Temp 97.8 F 12/17/16 08:41 Pulse 70 12/17/16 08:41 Resp 20 12/17/16 08:41 BP 185/77 H 12/17/16 08:41 Pulse Ox 98 12/17/16 08:41 - Labs Result Diagrams: 12/17/16 07:44 12/17/16 07:44 Labs: Laboratory Results - last 24 hr 12/17/16 12/17/16 07:44 07:44 WBC 9.4 RBC 3.86 Hgb 10.3 L D Hct 31.8 L MCV 82.2 MCH 26.7 L MCHC 32.4 L RDW 15.8 H Plt Count 235 MPV 6.7 L Neut % (Auto) 84.8 H Lymph % (Auto) 11.9 L [place] % (Auto) 2.8 Eos % (Auto) 0.3 Baso % (Auto) 0.2 Neut # 8.0 H Lymph # 1.1 [place] # 0.3 Eos # 0.0 Baso # 0.0 Sodium 136 Potassium 3.6 Chloride 100 Carbon Dioxide 27 Anion Gap 13 BUN 23 H Creatinine 1.0 Est GFR ( Amer) > 60 Est GFR (Non-Af Amer) 53 Random Glucose 100 Calcium 7.8 L Total Bilirubin 0.5 AST 16 ALT 22 Alkaline Phosphatase 44 Total Protein 5.2 L Albumin 2.6 L Globulin 2.6 Albumin/Globulin Ratio 1.0 Assessment & Plan - Assessment and Plan (Free Text) Assessment: Patient is an 85yo female with PMHx significant for HTN, hyperlipidemia, arthritis, CHF, COPD, PE not on anticoagulation, Parkinson's disease, diverticulosis who presented to the ED with abdominal pain. -Abdominal pain 2/2 SBO Plan: -Agree with surgical plan for conservative therapy -NGT placed, decompression of small bowel -NPO -Cepacol lozenge for sore throat OK to give despite NPO order -Monitor BMP -Analgesia and antiemetics per primary service - Date & Time Date: 12/17/16 Time: 10:40 <Eugenie Licea MD - Last Filed: 12/17/16 16:28> Meds - Medications Medications: Current Medications Acetylcysteine (Acetylcysteine 20%) 4 ml INH RQ6 [facility] Last Admin: 12/17/16 13:24 Dose: 4 ml Albuterol/Ipratropium (Duoneb 3 Mg/0.5 Mg (3 Ml) Ud) 3 ml INH RQ6 [facility] Last Admin: 12/17/16 13:24 Dose: 3 ml Benzocaine/Menthol (Cepacol Sore Throat) 1 jacquelyn MT Q2H PRN PRN Reason: Sore Throat Last Admin: 12/17/16 14:15 Dose: 1 jacquelyn Carbidopa/Levodopa (Sinemet) 1 tab PO DAILY [facility] Last Admin: 12/17/16 10:48 Dose: 1 tab Diltiazem HCl (Cardizem Cd) 300 mg PO DAILY [facility] Last Admin: 12/17/16 10:49 Dose: 300 mg Enoxaparin Sodium (Lovenox) 40 mg SC DAILY [facility] Last Admin: 12/17/16 10:48 Dose: 40 mg Ciprofloxacin (Cipro 400mg/200ml Dsw) 400 mg in 200 mls @ 133 mls/hr IVPB Q12H [facility] Last Admin: 12/17/16 14:16 Dose: 133 mls/hr Metronidazole (Flagyl) 500 mg in 100 mls @ 100 mls/hr IVPB Q8 [facility] Last Admin: 12/17/16 14:15 Dose: 100 mls/hr Dextrose/Sodium Chloride (Dextrose 5%/0.45% Ns 1000 Ml) 1,000 mls @ 80 mls/hr IV .[id number] [facility] Last Admin: 12/17/16 11:19 Dose: 80 mls/hr Losartan Potassium (Cozaar) 100 mg PO DAILY [facility] Last Admin: 12/17/16 10:48 Dose: 100 mg Morphine Sulfate (Morphine) 2 mg IVP Q4 PRN PRN Reason: pain Last Admin: 12/17/16 13:02 Dose: 2 mg Neomycin/Polymyxin/Hydrocortisone (Cortisporin Otic Soln) 2 drop AU QID [facility] Last Admin: 12/17/16 14:42 Dose: Not Given Nitroglycerin (Nitro-Bid 2% Oint) 1 ea TOP Q6 [facility] Last Admin: 12/17/16 11:17 Dose: 1 ea Pantoprazole Sodium (Protonix Inj) 40 mg IVP DAILY [facility] Last Admin: 12/17/16 10:48 Dose: 40 mg Rosuvastatin Calcium (Crestor) 5 mg PO HS [facility] Last Admin: 12/16/16 21:19 Dose: 5 mg Results - Vital Signs Recent Vital Signs: Last Vital Signs Temp 97.8 F 12/17/16 08:41 Pulse 70 12/17/16 08:41 Resp 20 12/17/16 08:41 BP 185/77 H 12/17/16 08:41 Pulse Ox 98 12/17/16 08:41 - Labs Result Diagrams: 12/17/16 07:44 12/17/16 07:44 Labs: Laboratory Results - last 24 hr 12/17/16 12/17/16 07:44 07:44 WBC 9.4 RBC 3.86 Hgb 10.3 L D Hct 31.8 L MCV 82.2 MCH 26.7 L MCHC 32.4 L RDW 15.8 H Plt Count 235 MPV 6.7 L Neut % (Auto) 84.8 H Lymph % (Auto) 11.9 L [place] % (Auto) 2.8 Eos % (Auto) 0.3 Baso % (Auto) 0.2 Neut # 8.0 H Lymph # 1.1 [place] # 0.3 Eos # 0.0 Baso # 0.0 Sodium 136 Potassium 3.6 Chloride 100 Carbon Dioxide 27 Anion Gap 13 BUN 23 H Creatinine 1.0 Est GFR ( Amer) > 60 Est GFR (Non-Af Amer) 53 Random Glucose 100 Calcium 7.8 L Total Bilirubin 0.5 AST 16 ALT 22 Alkaline Phosphatase 44 Total Protein 5.2 L Albumin 2.6 L Globulin 2.6 Albumin/Globulin Ratio 1.0 Attending/Attestation - Attestation I have personally seen and examined this patient.: Yes I have fully participated in the care of the patient.: Yes I have reviewed all pertinent clinical information: Yes Notes (Text): 12/17/16 16:12 Patient seen with GI fellow on rounds. This is a 85 yr old female with PMHx significant for HTN, hyperlipidemia, arthritis, CHF, COPD, PE not on anticoagulation, Parkinson's disease, diverticulosis who presented to the ED with abdominal pain with partial SBO. NGT placed with bilious output. Will monitor. Replace electrolytes. Frequent abdominal checks
--- NOTE | 2016-12-17 14:26 | CP.PCM.PN ---
Subjective - Date & Time of Evaluation Date of Evaluation: 12/17/16 Time of Evaluation: 09:00 - Subjective Subjective: SURGERY PROGRESS NOTE FOR DR. CUENCA Patient seen and examined at bedside. She denies flatus or BM since admission. She continues to have throat pain from the NG tube. Cepacol is ordered. Has mild abdominal pain. Objective - Vital Signs/Intake and Output Vital Signs (last 24 hours): Temp Pulse Resp BP Pulse Ox 97.8 F 70 20 185/77 H 98 12/17/16 08:41 12/17/16 08:41 12/17/16 08:41 12/17/16 08:41 12/17/16 08:41 Intake and Output: 12/17/16 12/17/16 06:59 18:59 Intake Total 740 Output Total 100 50 Balance 640 -50 - Medications Medications: Current Medications Acetylcysteine (Acetylcysteine 20%) 4 ml INH RQ6 [facility] Last Admin: 12/17/16 13:24 Dose: 4 ml Albuterol/Ipratropium (Duoneb 3 Mg/0.5 Mg (3 Ml) Ud) 3 ml INH RQ6 [facility] Last Admin: 12/17/16 13:24 Dose: 3 ml Benzocaine/Menthol (Cepacol Sore Throat) 1 jacquelyn MT Q2H PRN PRN Reason: Sore Throat Last Admin: 12/17/16 14:15 Dose: 1 jacquelyn Carbidopa/Levodopa (Sinemet) 1 tab PO DAILY [facility] Last Admin: 12/17/16 10:48 Dose: 1 tab Diltiazem HCl (Cardizem Cd) 300 mg PO DAILY [facility] Last Admin: 12/17/16 10:49 Dose: 300 mg Enoxaparin Sodium (Lovenox) 40 mg SC DAILY [facility] Last Admin: 12/17/16 10:48 Dose: 40 mg Ciprofloxacin (Cipro 400mg/200ml Dsw) 400 mg in 200 mls @ 133 mls/hr IVPB Q12H [facility] Last Admin: 12/17/16 14:16 Dose: 133 mls/hr Metronidazole (Flagyl) 500 mg in 100 mls @ 100 mls/hr IVPB Q8 [facility] Last Admin: 12/17/16 14:15 Dose: 100 mls/hr Dextrose/Sodium Chloride (Dextrose 5%/0.45% Ns 1000 Ml) 1,000 mls @ 80 mls/hr IV .[id number] [facility] Last Admin: 12/17/16 11:19 Dose: 80 mls/hr Losartan Potassium (Cozaar) 100 mg PO DAILY [facility] Last Admin: 12/17/16 10:48 Dose: 100 mg Morphine Sulfate (Morphine) 2 mg IVP Q4 PRN PRN Reason: pain Last Admin: 12/17/16 13:02 Dose: 2 mg Neomycin/Polymyxin/Hydrocortisone (Cortisporin Otic Soln) 2 drop AU QID [facility] Last Admin: 12/17/16 10:47 Dose: 2 drop Nitroglycerin (Nitro-Bid 2% Oint) 1 ea TOP Q6 [facility] Last Admin: 12/17/16 11:17 Dose: 1 ea Pantoprazole Sodium (Protonix Inj) 40 mg IVP DAILY [facility] Last Admin: 12/17/16 10:48 Dose: 40 mg Rosuvastatin Calcium (Crestor) 5 mg PO HS [facility] Last Admin: 12/16/16 21:19 Dose: 5 mg - Labs Labs: 12/17/16 07:44 12/17/16 07:44 - Constitutional Appears: Non-toxic, No Acute Distress - Head Exam Head Exam: ATRAUMATIC, NORMAL INSPECTION - Eye Exam Eye Exam: EOMI, Normal appearance - Respiratory Exam Respiratory Exam: NORMAL BREATHING PATTERN. absent: Respiratory Distress - GI/Abdominal Exam GI & Abdominal Exam: Soft, Tenderness (mild upper abdominal tenderness). absent : Distended, Firm, Guarding, Rigid, Rebound Additional comments: NG tube in place, 500cc in cannister - Neurological Exam Neurological Exam: Alert, Awake - Psychiatric Exam Psychiatric exam: Normal Affect, Normal Mood - Skin Skin Exam: Intact, Warm Assessment and Plan - Assessment and Plan (Free Text) Assessment: 85yo F with PMHx of CHF, COPD, PE, s/p abdominal surgery who presented with abdominal pain and was found to have partial SBO. - Afebrile, VSS - CT: dilated fluid filled SB loops mainly in LUQ, slightly prominent wall and fold enhancement of these loops, distal ileum decompressed, RLQ transition point , consistent w/ distal partial SBO - NPO - IV Fluids - Zofran & Morphine PRN - NG tube on suction with 50cc output over manager strategic sourcing per nurse (500cc in cannister) - Will await return of bowel function - Discussed plan with Dr. Jerome Reed PGY-2
[2016-12-17] MEDS ORDERED: DiphenhydrAMINE 50 mg/ml Inj IVP ONE (23:19)
[2016-12-18] MEDS: Nitroglycerin 2% Ointment Foilpak UD TOP SCH ×4 (00:18→17:13)
[2016-12-18] MEDS: Albuterol-Ipratrop 3 mg / 0.5 (3 ml) UD INH SCH ×3 (01:59→19:54)
[2016-12-18] MEDS: Acetylcysteine 20% Inhal Soln (4ml) INH SCH ×3 (01:59→13:32)
[2016-12-18] MEDS: Ciprofloxacin 400mg/200ml D5W 400 MG/200 ML BAG IVPB SCH ×2 (02:30→14:05)
[2016-12-18] MEDS: Dextrose 5%/0.45% NS 1,000 ML IV SCH ×3 (03:56→22:19)
[2016-12-18] MEDS: metroNIDAZOLE IV 500 mg/100 ml 500 MG/100 ML BAG IVPB SCH ×3 (06:10→21:12)
[2016-12-18] MEDS: Benzocaine/Menthol (Cepacol) Lozenge MT PRN ×2 (07:12→13:37)
--- NOTE | 2016-12-18 07:52 | CP.PCM.PN ---
Subjective - Date & Time of Evaluation Date of Evaluation: 12/18/16 Time of Evaluation: 07:49 - Subjective Subjective: PGY1 Progress note for Dr. Cano: Patient seen and examined. Patient not sure of flatus or BM. Family at bedside states patient has not had BM or flatus. Patient complains of sore throat from NGT and diffuse abdominal pain. Objective - Vital Signs/Intake and Output Vital Signs (last 24 hours): Temp Pulse Resp BP Pulse Ox 98.7 F 71 20 160/72 H 95 12/18/16 00:15 12/18/16 00:15 12/18/16 00:15 12/18/16 00:15 12/18/16 00:15 Intake and Output: 12/18/16 12/18/16 06:59 18:59 Intake Total 740 Output Total 380 Balance 360 - Medications Medications: Current Medications Acetylcysteine (Acetylcysteine 20%) 4 ml INH RQ6 [facility] Last Admin: 12/18/16 07:48 Dose: 4 ml Albuterol/Ipratropium (Duoneb 3 Mg/0.5 Mg (3 Ml) Ud) 3 ml INH RQ6 [facility] Last Admin: 12/18/16 07:48 Dose: 3 ml Benzocaine/Menthol (Cepacol Sore Throat) 1 jacquelyn MT Q2H PRN PRN Reason: Sore Throat Last Admin: 12/18/16 07:12 Dose: 1 jacquelyn Carbidopa/Levodopa (Sinemet) 1 tab PO DAILY [facility] Last Admin: 12/17/16 10:48 Dose: 1 tab Diltiazem HCl (Cardizem Cd) 300 mg PO DAILY [facility] Last Admin: 12/17/16 10:49 Dose: 300 mg Enoxaparin Sodium (Lovenox) 40 mg SC DAILY [facility] Last Admin: 12/17/16 10:48 Dose: 40 mg Ciprofloxacin (Cipro 400mg/200ml Dsw) 400 mg in 200 mls @ 133 mls/hr IVPB Q12H [facility] Last Admin: 12/18/16 02:30 Dose: 133 mls/hr Metronidazole (Flagyl) 500 mg in 100 mls @ 100 mls/hr IVPB Q8 [facility] Last Admin: 12/18/16 06:10 Dose: 100 mls/hr Dextrose/Sodium Chloride (Dextrose 5%/0.45% Ns 1000 Ml) 1,000 mls @ 80 mls/hr IV .[id number] [facility] Last Admin: 12/17/16 16:22 Dose: Not Given Losartan Potassium (Cozaar) 100 mg PO DAILY [facility] Last Admin: 12/17/16 10:48 Dose: 100 mg Morphine Sulfate (Morphine) 2 mg IVP Q4 PRN PRN Reason: pain Last Admin: 12/17/16 18:07 Dose: 2 mg Neomycin/Polymyxin/Hydrocortisone (Cortisporin Otic Soln) 2 drop AU QID [facility] Last Admin: 12/17/16 22:17 Dose: 2 drop Nitroglycerin (Nitro-Bid 2% Oint) 1 ea TOP Q6 [facility] Last Admin: 12/18/16 06:12 Dose: 1 ea Pantoprazole Sodium (Protonix Inj) 40 mg IVP DAILY [facility] Last Admin: 12/17/16 10:48 Dose: 40 mg Phenol/Menthol (Phenaseptic 1.4% Throat [place]) 0 ml MT Q2H PRN PRN Reason: Sore Throat Rosuvastatin Calcium (Crestor) 5 mg PO HS [facility] Last Admin: 12/17/16 22:22 Dose: 5 mg - Labs Labs: 12/17/16 07:44 12/17/16 07:44 - Constitutional Appears: Non-toxic, No Acute Distress - Head Exam Head Exam: ATRAUMATIC, NORMOCEPHALIC - Eye Exam Eye Exam: EOMI - ENT Exam Additional comments: NGT in place, 50cc output over last 12h - Respiratory Exam Respiratory Exam: NORMAL BREATHING PATTERN - GI/Abdominal Exam GI & Abdominal Exam: Soft, Tenderness (diffuse), Hypoactive Bowel Sounds. absent: Firm - Neurological Exam Neurological Exam: Alert, Awake - Psychiatric Exam Psychiatric exam: Normal Affect - Skin Skin Exam: Warm Assessment and Plan - Assessment and Plan (Free Text) Assessment: 85yo F with PMHx of CHF, COPD, PE, s/p abdominal surgery who presented with abdominal pain and was found to have partial SBO. - Afebrile, VSS - CT: dilated fluid filled SB loops mainly in LUQ, slightly prominent wall and fold enhancement of these loops, distal ileum decompressed, RLQ transition point , consistent w/ distal partial SBO - NPO, can have ice chips - IV Fluids - chloraseptic spray for sore throat - NG taken off suction, will check residual this afternoon and discontinue NGT if minimal output - Will await return of bowel function - further recs per Dr. Cano
--- NOTE | 2016-12-18 08:32 | CP.PCM.PN ---
<Kaylee Gilbert - Last Filed: 12/18/16 17:16> Subjective - Date & Time of Evaluation Date of Evaluation: 12/18/16 Time of Evaluation: 08:30 - Subjective Subjective: Gastroenterology Fellow/PGY4 Progress Note Patient notes throat discomfort with NG tube. Abdominal pain is improving at not present without palpation. No bowel movement. Nursing notes 50cc of NGT output overnight with shift starting at 600cc and ending at 650cc. A 12-point review of systems negative except for as above. Objective - Vital Signs/Intake and Output Vital Signs (last 24 hours): Temp Pulse Resp BP Pulse Ox 97.3 F L 68 20 129/73 96 12/18/16 08:16 12/18/16 08:16 12/18/16 08:16 12/18/16 08:16 12/18/16 08:16 Intake and Output: 12/18/16 12/18/16 06:59 18:59 Intake Total 740 685 Output Total 380 50 Balance 360 635 - Medications Medications: Current Medications Acetylcysteine (Acetylcysteine 20%) 4 ml INH RQ6 [facility] Last Admin: 12/18/16 07:48 Dose: 4 ml Albuterol/Ipratropium (Duoneb 3 Mg/0.5 Mg (3 Ml) Ud) 3 ml INH RQ6 [facility] Last Admin: 12/18/16 07:48 Dose: 3 ml Benzocaine/Menthol (Cepacol Sore Throat) 1 jacquelyn MT Q2H PRN PRN Reason: Sore Throat Last Admin: 12/18/16 07:12 Dose: 1 jacquelyn Carbidopa/Levodopa (Sinemet) 1 tab PO DAILY [facility] Last Admin: 12/17/16 10:48 Dose: 1 tab Diltiazem HCl (Cardizem Cd) 300 mg PO DAILY [facility] Last Admin: 12/17/16 10:49 Dose: 300 mg Enoxaparin Sodium (Lovenox) 40 mg SC DAILY [facility] Last Admin: 12/17/16 10:48 Dose: 40 mg Ciprofloxacin (Cipro 400mg/200ml Dsw) 400 mg in 200 mls @ 133 mls/hr IVPB Q12H [facility] Last Admin: 12/18/16 02:30 Dose: 133 mls/hr Metronidazole (Flagyl) 500 mg in 100 mls @ 100 mls/hr IVPB Q8 [facility] Last Admin: 12/18/16 06:10 Dose: 100 mls/hr Dextrose/Sodium Chloride (Dextrose 5%/0.45% Ns 1000 Ml) 1,000 mls @ 80 mls/hr IV .[id number] [facility] Last Admin: 12/18/16 03:56 Dose: Not Given Losartan Potassium (Cozaar) 100 mg PO DAILY [facility] Last Admin: 12/17/16 10:48 Dose: 100 mg Morphine Sulfate (Morphine) 2 mg IVP Q4 PRN PRN Reason: pain Last Admin: 12/17/16 18:07 Dose: 2 mg Neomycin/Polymyxin/Hydrocortisone (Cortisporin Otic Soln) 2 drop AU QID [facility] Last Admin: 12/17/16 22:17 Dose: 2 drop Nitroglycerin (Nitro-Bid 2% Oint) 1 ea TOP Q6 [facility] Last Admin: 12/18/16 06:12 Dose: 1 ea Pantoprazole Sodium (Protonix Inj) 40 mg IVP DAILY [facility] Last Admin: 12/17/16 10:48 Dose: 40 mg Phenol/Menthol (Phenaseptic 1.4% Throat [place]) 0 ml MT Q2H PRN PRN Reason: Sore Throat Rosuvastatin Calcium (Crestor) 5 mg PO HS [facility] Last Admin: 12/17/16 22:22 Dose: 5 mg - Labs Labs: 12/17/16 07:44 12/17/16 07:44 - Constitutional Appears: Non-toxic, No Acute Distress - Head Exam Head Exam: ATRAUMATIC, NORMOCEPHALIC - Eye Exam Eye Exam: EOMI, PERRL Pupil Exam: PERRL. absent: Miosis, Mydriatic - ENT Exam ENT Exam: Mucous Membranes Moist, Normal Oropharynx - Neck Exam Neck Exam: Full ROM, Normal Inspection - Respiratory Exam Respiratory Exam: Clear to Ausculation Bilateral. absent: Rales, Rhonchi, Wheezes - Cardiovascular Exam Cardiovascular Exam: RRR, +S1, +S2. absent: Gallop, Rubs - GI/Abdominal Exam GI & Abdominal Exam: Distended, Soft, Tenderness, Hyperactive Bowel Sounds, Normal Bowel Sounds. absent: Firm, Guarding, Rigid, Organomegaly, Rebound Additional comments: mildly discomfort, mild discomfort LUQ to palpation - Extremities Exam Extremities Exam: Normal Inspection, Pedal Edema Additional comments: chronic B/L LE lymphedema, pedal edema - Neurological Exam Neurological Exam: Alert, Awake - Psychiatric Exam Psychiatric exam: Normal Affect, Normal Mood - Skin Skin Exam: Dry, Intact, Normal Color, Warm Assessment and Plan - Assessment and Plan (Free Text) Assessment: 85 year old female with history of Hypertension, Hyperlipidemia, PE not on anticoagulation, CHF, COPD, Parkinson's disease, and diverticulosis presenting with abdominal pain. Active treatment of partial small bowel obstruction. Prior EGD/Colonoscopy 10/2015 showed LA Grade B esophagitis, moderate hiatal hernia, H. pylori negative chronic gastritis, sigmoid/descending diverticulosis, and moderate internal hemorrhoids. Plan: >serial abdominal exams >abdominal flat plate ordered >surgery managing- NG suction held, will re-assess for possible NG removal >NPO, ice chips >continue supportive care: chloraseptic spray, antiemetics >will follow clinical course <Eugenie Licea MD - Last Filed: 12/18/16 21:08> Objective - Vital Signs/Intake and Output Vital Signs (last 24 hours): Temp Pulse Resp BP Pulse Ox 99.5 F 84 20 110/70 94 L 12/18/16 15:00 12/18/16 15:00 12/18/16 15:00 12/18/16 15:00 12/18/16 15:00 Intake and Output: 12/18/16 12/19/16 18:59 06:59 Intake Total 1525 Output Total 110 Balance 1415 - Medications Medications: Current Medications Acetylcysteine (Acetylcysteine 20%) 4 ml INH RQ6 [facility] Last Admin: 12/18/16 13:32 Dose: Not Given Albuterol/Ipratropium (Duoneb 3 Mg/0.5 Mg (3 Ml) Ud) 3 ml INH RQ6 [facility] Last Admin: 12/18/16 19:54 Dose: 3 ml Benzocaine/Menthol (Cepacol Sore Throat) 1 jacquelyn MT Q2H PRN PRN Reason: Sore Throat Last Admin: 12/18/16 13:37 Dose: 1 jacquelyn Carbidopa/Levodopa (Sinemet) 1 tab PO DAILY [facility] Last Admin: 12/18/16 10:41 Dose: 1 tab Diltiazem HCl (Cardizem Cd) 300 mg PO DAILY [facility] Last Admin: 05/08/17 10:42 Dose: 300 mg Enoxaparin Sodium (Lovenox) 40 mg SC DAILY [facility] Last Admin: 12/18/16 10:40 Dose: 40 mg Ciprofloxacin (Cipro 400mg/200ml Dsw) 400 mg in 200 mls @ 133 mls/hr IVPB Q12H [facility] Last Admin: 12/18/16 14:05 Dose: 133 mls/hr Metronidazole (Flagyl) 500 mg in 100 mls @ 100 mls/hr IVPB Q8 [facility] Last Admin: 12/18/16 13:00 Dose: 100 mls/hr Dextrose/Sodium Chloride (Dextrose 5%/0.45% Ns 1000 Ml) 1,000 mls @ 80 mls/hr IV .[id number] [facility] Last Admin: 12/18/16 16:51 Dose: Not Given Losartan Potassium (Cozaar) 100 mg PO DAILY [facility] Last Admin: 12/18/16 10:41 Dose: 100 mg Morphine Sulfate (Morphine) 2 mg IVP Q4 PRN PRN Reason: pain Last Admin: 12/18/16 10:40 Dose: 2 mg Neomycin/Polymyxin/Hydrocortisone (Cortisporin Otic Soln) 2 drop AU QID [facility] Last Admin: 12/18/16 17:13 Dose: 2 drop Nitroglycerin (Nitro-Bid 2% Oint) 1 ea TOP Q6 [facility] Last Admin: 12/18/16 17:13 Dose: 1 ea Pantoprazole Sodium (Protonix Inj) 40 mg IVP DAILY [facility] Last Admin: 12/18/16 10:41 Dose: 40 mg Phenol/Menthol (Phenaseptic 1.4% Throat [place]) 0 ml MT Q2H PRN PRN Reason: Sore Throat Last Admin: 12/18/16 10:21 Dose: 1 spr Rosuvastatin Calcium (Crestor) 5 mg PO HS [facility] Last Admin: 12/17/16 22:22 Dose: 5 mg - Labs Labs: 12/17/16 07:44 12/17/16 07:44 Attending/Attestation - Attestation I have personally seen and examined this patient.: Yes I have fully participated in the care of the patient.: Yes I have reviewed all pertinent clinical information, including history, physical exam and plan: Yes Notes (Text): 12/18/16 21:08 Patient seen with GI fellow on rounds. This is a 85 yr old female with PMHx significant for HTN, hyperlipidemia, arthritis, CHF, COPD, PE not on anticoagulation, Parkinson's disease, diverticulosis who presented to the ED with abdominal pain with partial SBO. NGT placed with bilious output now decreasing. Will monitor. Replace electrolytes. Frequent abdominal checks
--- NOTE | 2016-12-18 10:05 | RAD ---
HISTORY: partial obstruction COMPARISON: CT abdomen/ pelvis 12/16/2016 FINDINGS: BOWEL: No evidence of bryan mechanical bowel obstruction. Mildly dilated small bowel loops noted in mid to lower left abdomen, nonspecific. Nasogastric tube noted in mid upper abdomen. Surgical clips in right upper quadrant status post cholecystectomy. No masses or abnormal intra-abdominal calcifications. BONES: Normal. OTHER FINDINGS: None. IMPRESSION: Nasogastric tube. No definite mechanical small-bowel obstruction evident on this examination.
[2016-12-18] MEDS: Phenol Topical 1.4% Throat Spray (180 ml) MT PRN (10:21)
[2016-12-18] MEDS: Enoxaparin 40 mg Syringe SC SCH (10:40)
[2016-12-18] MEDS: Neomycin/Polymyxin/Hydrocort Otic Soln BOTTLE AU SCH ×4 (10:41→21:12)
[2016-12-18] MEDS: diltiaZEM 300 mg/24 Hours CD Cap PO SCH (10:42)
--- NOTE | 2016-12-18 21:03 | VASCLAB ---
PROCEDURE: Lower Extremity Venous Duplex Exam. HISTORY: rule out LE DVT PRIORS: Last exam 2014, normal. TECHNIQUE: Bilateral common femoral, femoral, popliteal and posterior tibial, peroneal and great saphenous veins were evaluated. Flow was assessed with color Doppler, compressibility, assessment of phasic flow and augmentation response. Report prepared by ROMA Rordiguez FINDINGS: RIGHT: 1. Common Femoral Vein: 1.1. Compressibility - Fully compressible: Thrombus - None : Flow - Phasic: Augmentation -Normal: Reflux - None. 2. Femoral Vein: 2.1. Compressibility - Fully compressible: Thrombus - None : Flow - Phasic: Augmentation -Normal: Reflux - None. 3. Popliteal Vein: 3.1. Compressibility - Fully compressible: Thrombus - None : Flow - Phasic: Augmentation -Normal: Reflux - None. 4. Posterior Tibial Vein: 4.1. Compressibility - Fully compressible: Thrombus - None: Flow - Phasic: Augmentation -Normal: Reflux - None. 5. Peroneal Vein: 5.1. Unable to image 6. Great Saphenous Vein: 6.1. Not visualized LEFT: 1. Common Femoral Vein: 1.1. Compressibility - Fully compressible: Thrombus - None: Flow - Phasic: Augmentation -Normal: Reflux - None. 2. Femoral Vein: 2.1. Compressibility - Fully compressible: Thrombus - None: Flow - Phasic: Augmentation -Normal: Reflux - None. 3. Popliteal Vein: 3.1. Compressibility - Fully compressible: Thrombus - None : Flow - Phasic: Augmentation -Normal: Reflux - None. 4. Posterior Tibial Vein: 4.1. Compressibility - Fully compressible: Thrombus - None: Flow - Phasic: Augmentation -Normal: Reflux - None. 5. Peroneal Vein: 5.1. Compressibility - Fully compressible: Thrombus - None: Flow - Phasic: Augmentation -Normal: Reflux - None. 6. Great Saphenous Vein: 6.1. Not visualized OTHER FINDINGS: Right: None significant. Left: None significant. IMPRESSION: Right: No evidence of deep vein thrombosis of the right lower extremity, for the imaged veins. The right peroneal veins were not visualized, due to swelling. Left: No evidence of deep vein thrombosis of the left lower extremity. Bilateral great saphenous veins were not visualized.
--- NOTE | 2016-12-18 22:53 | CP.PCM.PN ---
Subjective - Date & Time of Evaluation Date of Evaluation: 12/18/16 Time of Evaluation: 10:24 - Subjective Subjective: Patient notes throat discomfort with NG tube.NG tube is out, Abdominal pain is improving at not present without palpation. No bowel movement. Pt is for clear liquid diet and monitor pt closely Objective - Vital Signs/Intake and Output Vital Signs (last 24 hours): Temp Pulse Resp BP Pulse Ox 99.5 F 84 20 110/70 94 L 12/18/16 15:00 12/18/16 15:00 12/18/16 15:00 12/18/16 15:00 12/18/16 15:00 Intake and Output: 12/18/16 12/19/16 18:59 06:59 Intake Total 1525 6500 Output Total 110 Balance 1415 6500 - Medications Medications: Current Medications Acetylcysteine (Acetylcysteine 20%) 4 ml INH RQ6 [facility] Last Admin: 12/18/16 13:32 Dose: Not Given Albuterol/Ipratropium (Duoneb 3 Mg/0.5 Mg (3 Ml) Ud) 3 ml INH RQ6 [facility] Last Admin: 12/18/16 19:54 Dose: 3 ml Benzocaine/Menthol (Cepacol Sore Throat) 1 jacquelyn MT Q2H PRN PRN Reason: Sore Throat Last Admin: 12/18/16 13:37 Dose: 1 jacquelyn Carbidopa/Levodopa (Sinemet) 1 tab PO DAILY [facility] Last Admin: 12/18/16 10:41 Dose: 1 tab Diltiazem HCl (Cardizem Cd) 300 mg PO DAILY [facility] Last Admin: 12/18/16 10:42 Dose: 300 mg Enoxaparin Sodium (Lovenox) 40 mg SC DAILY [facility] Last Admin: 12/18/16 10:40 Dose: 40 mg Ciprofloxacin (Cipro 400mg/200ml Dsw) 400 mg in 200 mls @ 133 mls/hr IVPB Q12H [facility] Last Admin: 12/18/16 14:05 Dose: 133 mls/hr Metronidazole (Flagyl) 500 mg in 100 mls @ 100 mls/hr IVPB Q8 [facility] Last Admin: 12/18/16 21:12 Dose: 100 mls/hr Dextrose/Sodium Chloride (Dextrose 5%/0.45% Ns 1000 Ml) 1,000 mls @ 80 mls/hr IV .[id number] [facility] Last Admin: 12/18/16 22:19 Dose: 80 mls/hr Losartan Potassium (Cozaar) 100 mg PO DAILY [facility] Last Admin: 12/18/16 10:41 Dose: 100 mg Morphine Sulfate (Morphine) 2 mg IVP Q4 PRN PRN Reason: pain Last Admin: 12/18/16 10:40 Dose: 2 mg Neomycin/Polymyxin/Hydrocortisone (Cortisporin Otic Soln) 2 drop AU QID [facility] Last Admin: 12/18/16 21:12 Dose: 2 drop Nitroglycerin (Nitro-Bid 2% Oint) 1 ea TOP Q6 [facility] Last Admin: 12/18/16 17:13 Dose: 1 ea Pantoprazole Sodium (Protonix Inj) 40 mg IVP DAILY [facility] Last Admin: 12/18/16 10:41 Dose: 40 mg Phenol/Menthol (Phenaseptic 1.4% Throat [place]) 0 ml MT Q2H PRN PRN Reason: Sore Throat Last Admin: 12/18/16 10:21 Dose: 1 spr Rosuvastatin Calcium (Crestor) 5 mg PO HS [facility] Last Admin: 12/18/16 21:12 Dose: 5 mg - Labs Labs: 12/17/16 07:44 12/17/16 07:44 - Constitutional Appears: No Acute Distress, Chronically Ill - Head Exam Head Exam: ATRAUMATIC, NORMAL INSPECTION, NORMOCEPHALIC - Eye Exam Eye Exam: EOMI, Normal appearance, PERRL Pupil Exam: NORMAL ACCOMODATION, PERRL - Respiratory Exam Respiratory Exam: Decreased Breath Sounds, Rales - Cardiovascular Exam Cardiovascular Exam: REGULAR RHYTHM, +S1, +S2. absent: Murmur - GI/Abdominal Exam GI & Abdominal Exam: Soft, Normal Bowel Sounds. absent: Tenderness Assessment and Plan (1) Abdominal pain Status: Acute (2) Small bowel obstruction Status: Acute (3) Diabetes mellitus Status: Chronic (4) Hypertension Status: Chronic
[2016-12-19] MEDS: Nitroglycerin 2% Ointment Foilpak UD TOP SCH ×4 (00:06→18:50)
[2016-12-19] MEDS: Acetylcysteine 20% Inhal Soln (4ml) INH SCH ×4 (01:31→19:51)
[2016-12-19] MEDS: Albuterol-Ipratrop 3 mg / 0.5 (3 ml) UD INH SCH ×5 (01:32→19:51)
[2016-12-19] MEDS: Ciprofloxacin 400mg/200ml D5W 400 MG/200 ML BAG IVPB SCH ×2 (02:35→15:25)
[2016-12-19] MEDS: Dextrose 5%/0.45% NS 1,000 ML IV SCH (04:45)
[2016-12-19] MEDS: metroNIDAZOLE IV 500 mg/100 ml 500 MG/100 ML BAG IVPB SCH ×3 (05:56→15:26)
[2016-12-19 07:16] LABS: BASO % 0.4 % (0.0-2.0); EOS % 0.4 % (0.0-4.0); HEMATOCRIT 31.5 % (34.0-47.0); LYMPH % 10.5 % (20.0-40.0); MEAN CELL VOLUME 83.1 fL (81.0-99.0); MEAN CORPUSCULAR HEMOGLOBIN 27.2 pg (27.0-31.0); MEAN CORPUSCULAR HGB CONC 32.7 g/dL (33.0-37.0); MEAN PLATELET VOLUME 6.9 fL (7.2-11.7); MONO # 0.4 K/uL (0.0-0.8); MONO % 4.1 % (0.0-10.0); NRBC % 0.1 % (0.0-2.0); RED CELL DISTRIBUTION WIDTH 15.5 % (11.5-14.5); WHITE BLOOD COUNT 9.2 K/uL (4.8-10.8)
[2016-12-19 08:06] LABS: CHLORIDE 100 mmol/L (98-107); POTASSIUM 3.5 mmol/L (3.6-5.2); SODIUM 131 mmol/L (132-148)
[2016-12-19 08:08] LABS: GFR AFRICAN-AMERICAN > 60
[2016-12-19 08:09] LABS: BLOOD UREA NITROGEN 12 mg/dL (7-17); CALCIUM 7.7 mg/dl (8.6-10.4); CARBON DIOXIDE 24 mmol/L (22-30); GLUCOSE,RANDOM 139 mg/dL (65-105)
--- NOTE | 2016-12-19 08:49 | CP.PCM.PN ---
<Kaylee Gilbert - Last Filed: 12/19/16 08:47> Subjective - Date & Time of Evaluation Date of Evaluation: 12/19/16 Time of Evaluation: 08:47 - Subjective Subjective: Gastroenterology Fellow/PGY4 Progress Note Patient notes improved throat discomfort. Continues to have abdominal discomfort. No bowel movement. A 12-point review of systems negative except for as above. Objective - Vital Signs/Intake and Output Vital Signs (last 24 hours): Temp Pulse Resp BP Pulse Ox 98.1 F 67 20 129/65 98 12/19/16 08:30 12/19/16 08:30 12/19/16 08:30 12/19/16 08:30 12/19/16 08:30 Intake and Output: 12/19/16 12/19/16 06:59 18:59 Intake Total 7140 Balance 7140 - Medications Medications: Current Medications Acetylcysteine (Acetylcysteine 20%) 4 ml INH RQ6 [facility] Last Admin: 12/19/16 08:01 Dose: 4 ml Albuterol/Ipratropium (Duoneb 3 Mg/0.5 Mg (3 Ml) Ud) 3 ml INH RQ6 [facility] Last Admin: 12/19/16 08:00 Dose: Not Given Benzocaine/Menthol (Cepacol Sore Throat) 1 jacquelyn MT Q2H PRN PRN Reason: Sore Throat Last Admin: 12/18/16 13:37 Dose: 1 jacquelyn Carbidopa/Levodopa (Sinemet) 1 tab PO DAILY [facility] Last Admin: 12/18/16 10:41 Dose: 1 tab Diltiazem HCl (Cardizem Cd) 300 mg PO DAILY [facility] Last Admin: 12/18/16 10:42 Dose: 300 mg Enoxaparin Sodium (Lovenox) 40 mg SC DAILY [facility] Last Admin: 12/18/16 10:40 Dose: 40 mg Ciprofloxacin (Cipro 400mg/200ml Dsw) 400 mg in 200 mls @ 133 mls/hr IVPB Q12H [facility] Last Admin: 12/19/16 02:35 Dose: 133 mls/hr Metronidazole (Flagyl) 500 mg in 100 mls @ 100 mls/hr IVPB Q8 [facility] Last Admin: 12/19/16 05:56 Dose: 100 mls/hr Dextrose/Sodium Chloride (Dextrose 5%/0.45% Ns 1000 Ml) 1,000 mls @ 80 mls/hr IV .[id number] [facility] Last Admin: 12/19/16 04:45 Dose: Not Given Potassium Chloride (Potassium Chloride 10 Meq/100 Ml) 10 meq in 100 mls @ 100 mls/hr IVPB Q2 [facility] Stop: 12/19/16 12:59 Losartan Potassium (Cozaar) 100 mg PO DAILY [facility] Last Admin: 12/18/16 10:41 Dose: 100 mg Morphine Sulfate (Morphine) 2 mg IVP Q4 PRN PRN Reason: pain Last Admin: 12/18/16 10:40 Dose: 2 mg Neomycin/Polymyxin/Hydrocortisone (Cortisporin Otic Soln) 2 drop AU QID [facility] Last Admin: 12/18/16 21:12 Dose: 2 drop Nitroglycerin (Nitro-Bid 2% Oint) 1 ea TOP Q6 [facility] Last Admin: 12/19/16 06:01 Dose: 1 ea Pantoprazole Sodium (Protonix Inj) 40 mg IVP DAILY [facility] Last Admin: 12/18/16 10:41 Dose: 40 mg Phenol/Menthol (Phenaseptic 1.4% Throat [place]) 0 ml MT Q2H PRN PRN Reason: Sore Throat Last Admin: 12/18/16 10:21 Dose: 1 spr Rosuvastatin Calcium (Crestor) 5 mg PO HS [facility] Last Admin: 12/18/16 21:12 Dose: 5 mg - Labs Labs: 12/19/16 07:10 12/19/16 07:10 - Constitutional Appears: Non-toxic, No Acute Distress - Head Exam Head Exam: ATRAUMATIC, NORMOCEPHALIC - Eye Exam Eye Exam: EOMI, PERRL Pupil Exam: PERRL. absent: Miosis, Mydriatic - ENT Exam ENT Exam: Mucous Membranes Moist, Normal Oropharynx - Neck Exam Neck Exam: Full ROM, Normal Inspection - Respiratory Exam Respiratory Exam: Clear to Ausculation Bilateral. absent: Rales, Rhonchi, Wheezes - Cardiovascular Exam Cardiovascular Exam: RRR, +S1, +S2. absent: Gallop, Rubs - GI/Abdominal Exam GI & Abdominal Exam: Soft, Tenderness, Normal Bowel Sounds. absent: Distended, Firm, Guarding, Rigid, Organomegaly, Rebound Additional comments: diffuse tenderness to palpation, worse at B/L UQ - Extremities Exam Extremities Exam: Normal Inspection, Pedal Edema - Neurological Exam Neurological Exam: Alert, Awake - Psychiatric Exam Psychiatric exam: Normal Affect, Normal Mood - Skin Skin Exam: Dry, Intact, Normal Color, Warm Assessment and Plan - Assessment and Plan (Free Text) Assessment: 85 year old female with history of Hypertension, Hyperlipidemia, PE not on anticoagulation, CHF, COPD, Parkinson's disease, and diverticulosis presenting with abdominal pain. Active treatment of partial small bowel obstruction. Prior EGD/Colonoscopy 10/2015 showed LA Grade B esophagitis, moderate hiatal hernia, H. pylori negative chronic gastritis, sigmoid/descending diverticulosis, and moderate internal hemorrhoids. Plan: >12/18 abdominal flat plate- mildly dilated small bowel loops, no obstruction >serial abdominal exams >continue supportive care: chloraseptic spray, antiemetics, pain control >advance diet as per surgery team >okay to trial clear liquids from GI standpoint >thank you for opportunity to participate in the care of this patient <Ezekiel Pulido - Last Filed: 12/19/16 09:02> Objective - Vital Signs/Intake and Output Vital Signs (last 24 hours): Temp Pulse Resp BP Pulse Ox 98.1 F 67 20 129/65 98 12/19/16 08:30 12/19/16 08:30 12/19/16 08:30 12/19/16 08:30 12/19/16 08:30 Intake and Output: 12/19/16 12/19/16 06:59 18:59 Intake Total 7140 Balance 7140 - Medications Medications: Current Medications Acetylcysteine (Acetylcysteine 20%) 4 ml INH RQ6 [facility] Last Admin: 12/19/16 08:01 Dose: 4 ml Albuterol/Ipratropium (Duoneb 3 Mg/0.5 Mg (3 Ml) Ud) 3 ml INH RQ6 [facility] Last Admin: 12/19/16 08:00 Dose: Not Given Benzocaine/Menthol (Cepacol Sore Throat) 1 jacquelyn MT Q2H PRN PRN Reason: Sore Throat Last Admin: 12/18/16 13:37 Dose: 1 jacquelyn Carbidopa/Levodopa (Sinemet) 1 tab PO DAILY [facility] Last Admin: 12/18/16 10:41 Dose: 1 tab Diltiazem HCl (Cardizem Cd) 300 mg PO DAILY [facility] Last Admin: 12/18/16 10:42 Dose: 300 mg Enoxaparin Sodium (Lovenox) 40 mg SC DAILY [facility] Last Admin: 12/18/16 10:40 Dose: 40 mg Ciprofloxacin (Cipro 400mg/200ml Dsw) 400 mg in 200 mls @ 133 mls/hr IVPB Q12H [facility] Last Admin: 12/19/16 02:35 Dose: 133 mls/hr Metronidazole (Flagyl) 500 mg in 100 mls @ 100 mls/hr IVPB Q8 [facility] Last Admin: 12/19/16 05:56 Dose: 100 mls/hr Dextrose/Sodium Chloride (Dextrose 5%/0.45% Ns 1000 Ml) 1,000 mls @ 80 mls/hr IV .[id number] [facility] Last Admin: 12/19/16 04:45 Dose: Not Given Potassium Chloride (Potassium Chloride 10 Meq/100 Ml) 10 meq in 100 mls @ 100 mls/hr IVPB Q2 [facility] Stop: 12/19/16 12:59 Losartan Potassium (Cozaar) 100 mg PO DAILY [facility] Last Admin: 12/18/16 10:41 Dose: 100 mg Morphine Sulfate (Morphine) 2 mg IVP Q4 PRN PRN Reason: pain Last Admin: 12/18/16 10:40 Dose: 2 mg Neomycin/Polymyxin/Hydrocortisone (Cortisporin Otic Soln) 2 drop AU QID [facility] Last Admin: 12/18/16 21:12 Dose: 2 drop Nitroglycerin (Nitro-Bid 2% Oint) 1 ea TOP Q6 [facility] Last Admin: 12/19/16 06:01 Dose: 1 ea Pantoprazole Sodium (Protonix Inj) 40 mg IVP DAILY [facility] Last Admin: 12/18/16 10:41 Dose: 40 mg Phenol/Menthol (Phenaseptic 1.4% Throat [place]) 0 ml MT Q2H PRN PRN Reason: Sore Throat Last Admin: 12/18/16 10:21 Dose: 1 spr Rosuvastatin Calcium (Crestor) 5 mg PO HS [facility] Last Admin: 12/18/16 21:12 Dose: 5 mg - Labs Labs: 12/19/16 07:10 12/19/16 07:10 Attending/Attestation - Attestation I have personally seen and examined this patient.: Yes I have fully participated in the care of the patient.: Yes I have reviewed all pertinent clinical information, including history, physical exam and plan: Yes Notes (Text): 12/19/16 08:59 I have seen and examined patient with GI fellow. No acute events overnight, NGT has been removed. She continues to endorse lower abdominal pain, no reported bowel movements overnight. Review of vitals from today are normal. HTN PE Hyperlipidemia Dementia, Parkinson's disease Abdominal pain, SBO - May initiate trial of liquid diet from GI perspective - Continue with supportive care - Follow up surgical recommendations - Continue with antibiotic therapy as per medical team - Will continue to monitor patient clinical course
[2016-12-19] MEDS: diltiaZEM 300 mg/24 Hours CD Cap PO SCH (10:08)
[2016-12-19] MEDS: Enoxaparin 40 mg Syringe SC SCH (10:08)
[2016-12-19] MEDS: Neomycin/Polymyxin/Hydrocort Otic Soln BOTTLE AU SCH ×4 (10:37→21:24)
[2016-12-19] MEDS ORDERED: Potassium Chloride 20 mEq ER Tab PO ONE (11:00)
[2016-12-19] MEDS: Potassium Chloride 10 MEQ in Dextrose 5%/0.45% NS 1,000 ML IV SCH (13:31)
--- NOTE | 2016-12-19 15:24 | CP.PCM.PN ---
Subjective - Date & Time of Evaluation Date of Evaluation: 12/19/16 Time of Evaluation: 07:00 - Subjective Subjective: GENERAL SURGERY PROGRESS NOTE FOR DR. CUENCA Patient seen and examined at bedside. She denies abdominal pain or flatus. NG tube was removed yesterday. Objective - Vital Signs/Intake and Output Vital Signs (last 24 hours): Temp Pulse Resp BP Pulse Ox 98.1 F 67 20 129/65 98 12/19/16 08:30 12/19/16 08:30 12/19/16 08:30 12/19/16 08:30 12/19/16 08:30 Intake and Output: 12/19/16 12/19/16 06:59 18:59 Intake Total 7140 410 Balance 7140 410 - Medications Medications: Current Medications Acetylcysteine (Acetylcysteine 20%) 4 ml INH RQ6 [facility] Last Admin: 12/19/16 13:42 Dose: 4 ml Albuterol/Ipratropium (Duoneb 3 Mg/0.5 Mg (3 Ml) Ud) 3 ml INH RQ6 [facility] Last Admin: 12/19/16 13:42 Dose: 3 ml Benzocaine/Menthol (Cepacol Sore Throat) 1 jacquelyn MT Q2H PRN PRN Reason: Sore Throat Last Admin: 12/18/16 13:37 Dose: 1 jacquelyn Carbidopa/Levodopa (Sinemet) 1 tab PO DAILY [facility] Last Admin: 12/19/16 10:09 Dose: 1 tab Diltiazem HCl (Cardizem Cd) 300 mg PO DAILY [facility] Last Admin: 12/19/16 10:08 Dose: 300 mg Enoxaparin Sodium (Lovenox) 40 mg SC DAILY [facility] Last Admin: 12/19/16 10:08 Dose: 40 mg Ciprofloxacin (Cipro 400mg/200ml Dsw) 400 mg in 200 mls @ 133 mls/hr IVPB Q12H [facility] Last Admin: 12/19/16 02:35 Dose: 133 mls/hr Metronidazole (Flagyl) 500 mg in 100 mls @ 100 mls/hr IVPB Q8 [facility] Last Admin: 12/19/16 13:30 Dose: 100 mls/hr Potassium Chloride 10 meq/ (Dextrose/Sodium Chloride) 1,005 mls @ 80 mls/hr IV .[id number] [facility] Last Admin: 12/19/16 13:31 Dose: 80 mls/hr Losartan Potassium (Cozaar) 100 mg PO DAILY [facility] Last Admin: 12/19/16 10:09 Dose: 100 mg Morphine Sulfate (Morphine) 2 mg IVP Q4 PRN PRN Reason: pain Last Admin: 12/18/16 10:40 Dose: 2 mg Neomycin/Polymyxin/Hydrocortisone (Cortisporin Otic Soln) 2 drop AU QID [facility] Last Admin: 12/19/16 13:31 Dose: 2 drop Nitroglycerin (Nitro-Bid 2% Oint) 1 ea TOP Q6 [facility] Last Admin: 12/19/16 11:31 Dose: 1 ea Pantoprazole Sodium (Protonix Inj) 40 mg IVP DAILY [facility] Last Admin: 12/19/16 10:09 Dose: 40 mg Phenol/Menthol (Phenaseptic 1.4% Throat [place]) 0 ml MT Q2H PRN PRN Reason: Sore Throat Last Admin: 12/18/16 10:21 Dose: 1 spr Rosuvastatin Calcium (Crestor) 5 mg PO HS [facility] Last Admin: 12/18/16 21:12 Dose: 5 mg - Labs Labs: 12/19/16 07:10 12/19/16 07:10 - Constitutional Appears: Non-toxic, No Acute Distress - Head Exam Head Exam: ATRAUMATIC, NORMAL INSPECTION - Respiratory Exam Respiratory Exam: NORMAL BREATHING PATTERN. absent: Respiratory Distress - Cardiovascular Exam Cardiovascular Exam: +S1, +S2 - GI/Abdominal Exam GI & Abdominal Exam: Soft, Tenderness (tender in LUQ and RUQ). absent: Distended, Firm, Guarding, Rigid, Rebound - Neurological Exam Neurological Exam: Alert, Awake, Oriented x3 - Psychiatric Exam Psychiatric exam: Normal Affect, Normal Mood - Skin Skin Exam: Dry, Warm Assessment and Plan - Assessment and Plan (Free Text) Assessment: 85yo F with PMHx of CHF, COPD, PE, s/p abdominal surgery who presented with abdominal pain and was found to have partial SBO. - Afebrile, VSS - NG tube removed yesterday - No BM yet - IV Fluids - Encouraged ambulation - Per GI: ok to advance to [facility] - Will monitor for return of bowel function - Discussed plan with Dr. Jerome Reed PGY-2
--- NOTE | 2016-12-19 23:08 | CP.PCM.PN ---
Subjective - Date & Time of Evaluation Date of Evaluation: 12/19/16 Time of Evaluation: 10:25 - Subjective Subjective: Patient seen and examined at bedside. She denies abdominal pain or flatus. NG tube was removed yesterday. she has been started on clear liqid diet, she is still slightly confused but feels better Objective - Vital Signs/Intake and Output Vital Signs (last 24 hours): Temp Pulse Resp BP Pulse Ox 98.2 F 72 20 131/70 94 L 12/19/16 16:00 12/19/16 16:00 12/19/16 16:00 12/19/16 16:00 12/19/16 18:00 Intake and Output: 12/19/16 12/20/16 18:59 06:59 Intake Total 410 450 Balance 410 450 - Medications Medications: Current Medications Acetylcysteine (Acetylcysteine 20%) 4 ml INH RQ6 [facility] Last Admin: 12/19/16 19:51 Dose: 4 ml Albuterol/Ipratropium (Duoneb 3 Mg/0.5 Mg (3 Ml) Ud) 3 ml INH RQ6 [facility] Last Admin: 12/19/16 19:51 Dose: 3 ml Benzocaine/Menthol (Cepacol Sore Throat) 1 jacquelyn MT Q2H PRN PRN Reason: Sore Throat Last Admin: 12/18/16 13:37 Dose: 1 jacquelyn Carbidopa/Levodopa (Sinemet) 1 tab PO TID [facility] Last Admin: 12/19/16 18:50 Dose: 1 tab Ciprofloxacin (Cipro) 250 mg PO BID [facility] Last Admin: 12/19/16 18:50 Dose: 250 mg Diltiazem HCl (Cardizem Cd) 300 mg PO DAILY [facility] Last Admin: 12/19/16 10:08 Dose: 300 mg Enoxaparin Sodium (Lovenox) 40 mg SC DAILY [facility] Last Admin: 12/19/16 10:08 Dose: 40 mg Potassium Chloride 10 meq/ (Dextrose/Sodium Chloride) 1,005 mls @ 80 mls/hr IV .[id number] [facility] Last Admin: 12/19/16 13:31 Dose: 80 mls/hr Losartan Potassium (Cozaar) 100 mg PO DAILY [facility] Last Admin: 12/19/16 10:09 Dose: 100 mg Metronidazole (Flagyl) 500 mg PO Q8 [facility] Last Admin: 12/19/16 21:24 Dose: 500 mg Morphine Sulfate (Morphine) 2 mg IVP Q4 PRN PRN Reason: pain Last Admin: 12/18/16 10:40 Dose: 2 mg Neomycin/Polymyxin/Hydrocortisone (Cortisporin Otic Soln) 2 drop AU QID [facility] Last Admin: 12/19/16 21:24 Dose: 2 drop Nitroglycerin (Nitro-Bid 2% Oint) 1 ea TOP Q6 [facility] Last Admin: 12/19/16 18:50 Dose: 1 ea Pantoprazole Sodium (Protonix Inj) 40 mg IVP DAILY [facility] Last Admin: 12/19/16 10:09 Dose: 40 mg Phenol/Menthol (Phenaseptic 1.4% Throat [place]) 0 ml MT Q2H PRN PRN Reason: Sore Throat Last Admin: 12/18/16 10:21 Dose: 1 spr Rosuvastatin Calcium (Crestor) 5 mg PO HS [facility] Last Admin: 12/19/16 21:24 Dose: 5 mg - Labs Labs: 12/19/16 07:10 12/19/16 07:10 - Constitutional Appears: No Acute Distress - Head Exam Head Exam: ATRAUMATIC, NORMAL INSPECTION, NORMOCEPHALIC - Eye Exam Eye Exam: EOMI, Normal appearance, PERRL Pupil Exam: NORMAL ACCOMODATION, PERRL - ENT Exam ENT Exam: Mucous Membranes Moist, Normal Exam - Respiratory Exam Respiratory Exam: Clear to Ausculation Bilateral, NORMAL BREATHING PATTERN - Cardiovascular Exam Cardiovascular Exam: REGULAR RHYTHM, +S1, +S2. absent: Murmur - GI/Abdominal Exam GI & Abdominal Exam: Soft, Normal Bowel Sounds. absent: Tenderness Assessment and Plan (1) Abdominal pain Status: Acute (2) Small bowel obstruction Status: Acute (3) Diabetes mellitus Status: Chronic (4) Hypertension Status: Chronic
[2016-12-20] MEDS: Nitroglycerin 2% Ointment Foilpak UD TOP SCH ×4 (00:14→17:15)
[2016-12-20] MEDS: Albuterol-Ipratrop 3 mg / 0.5 (3 ml) UD INH SCH ×3 (01:58→20:08)
[2016-12-20] MEDS: Acetylcysteine 20% Inhal Soln (4ml) INH SCH ×3 (01:59→20:08)
[2016-12-20 08:17] LABS: BASO % 0.2 % (0.0-2.0); EOS % 0.2 % (0.0-4.0); HEMATOCRIT 30.9 % (34.0-47.0); LYMPH # 0.8 K/uL (1.0-4.3); LYMPH % 9.8 % (20.0-40.0); MEAN CELL VOLUME 82.6 fL (81.0-99.0); MEAN CORPUSCULAR HGB CONC 32.6 g/dL (33.0-37.0); MEAN PLATELET VOLUME 7.2 fL (7.2-11.7); MONO # 0.4 K/uL (0.0-0.8); MONO % 5.4 % (0.0-10.0); PLATELET COUNT 187 K/uL (130-400); RED CELL DISTRIBUTION WIDTH 15.3 % (11.5-14.5)
[2016-12-20 09:22] LABS: CHLORIDE 100 mmol/L (98-107)
[2016-12-20 09:25] LABS: BLOOD UREA NITROGEN 10 mg/dL (7-17); CALCIUM 7.9 mg/dl (8.6-10.4); CARBON DIOXIDE 25 mmol/L (22-30); GFR AFRICAN-AMERICAN > 60; GLUCOSE,RANDOM 102 mg/dL (65-105)
[2016-12-20 09:31] LABS: NEUTROPHIL 82 % (50-75); TOTAL CELLS COUNTED 100
[2016-12-20 09:38] LABS: SODIUM 131 mmol/L (132-148)
[2016-12-20] MEDS: diltiaZEM 300 mg/24 Hours CD Cap PO SCH (11:00)
[2016-12-20] MEDS: Neomycin/Polymyxin/Hydrocort Otic Soln BOTTLE AU SCH ×4 (11:00→21:47)
[2016-12-20] MEDS: Enoxaparin 40 mg Syringe SC SCH (11:00)
--- NOTE | 2016-12-20 11:28 | RAD ---
HISTORY: r/o obstuction COMPARISON: 12/18/2016 FINDINGS: BOWEL: Multiple dilated small bowel loops in the left side of the abdomen. Suspicious for mechanical bowel obstruction. Previously identified nasogastric tube has been removed. Surgical clips in right upper quadrant consistent with prior cholecystectomy. Inferior vena caval filter noted. BONES: Normal. OTHER FINDINGS: None. IMPRESSION: Dilated small bowel loops suspicious for mechanical small bowel obstruction. Status post removal of nasogastric tube.
--- NOTE | 2016-12-20 11:41 | CP.PCM.PN ---
<Kaylee Gilbert - Last Filed: 12/20/16 11:37> Subjective - Date & Time of Evaluation Date of Evaluation: 12/20/16 Time of Evaluation: 11:37 - Subjective Subjective: Gastroenterology Fellow/PGY4 Progress Note Patient resting comfortably. Notes mild abdominal discomfort. Family at bedside noting large vomitus with attempted liquid diet this morning. No bowel movement. A 12-point review of systems negative except for as above. Objective - Vital Signs/Intake and Output Vital Signs (last 24 hours): Temp Pulse Resp BP Pulse Ox 97.7 F 68 20 149/68 97 12/20/16 08:41 12/20/16 08:41 12/20/16 08:41 12/20/16 08:41 12/20/16 08:41 Intake and Output: 12/20/16 12/20/16 06:59 18:59 Intake Total 650 Balance 650 - Medications Medications: Current Medications Acetylcysteine (Acetylcysteine 20%) 4 ml INH RQ6 [facility] Last Admin: 12/20/16 07:29 Dose: 4 ml Albuterol/Ipratropium (Duoneb 3 Mg/0.5 Mg (3 Ml) Ud) 3 ml INH RQ6 [facility] Last Admin: 12/20/16 07:28 Dose: 3 ml Benzocaine/Menthol (Cepacol Sore Throat) 1 jacquelyn MT Q2H PRN PRN Reason: Sore Throat Last Admin: 12/18/16 13:37 Dose: 1 jacquelyn Carbidopa/Levodopa (Sinemet) 1 tab PO TID [facility] Last Admin: 12/19/16 18:50 Dose: 1 tab Ciprofloxacin (Cipro) 250 mg PO BID [facility] Last Admin: 12/19/16 18:50 Dose: 250 mg Diltiazem HCl (Cardizem Cd) 300 mg PO DAILY [facility] Last Admin: 12/19/16 10:08 Dose: 300 mg Enoxaparin Sodium (Lovenox) 40 mg SC DAILY [facility] Last Admin: 12/19/16 10:08 Dose: 40 mg Potassium Chloride 10 meq/ (Dextrose/Sodium Chloride) 1,005 mls @ 80 mls/hr IV .[id number] [facility] Last Admin: 12/19/16 13:31 Dose: 80 mls/hr Losartan Potassium (Cozaar) 100 mg PO DAILY [facility] Last Admin: 12/19/16 10:09 Dose: 100 mg Metronidazole (Flagyl) 500 mg PO Q8 [facility] Last Admin: 12/20/16 05:54 Dose: 500 mg Morphine Sulfate (Morphine) 2 mg IVP Q4 PRN PRN Reason: pain Last Admin: 12/18/16 10:40 Dose: 2 mg Neomycin/Polymyxin/Hydrocortisone (Cortisporin Otic Soln) 2 drop AU QID [facility] Last Admin: 12/19/16 21:24 Dose: 2 drop Nitroglycerin (Nitro-Bid 2% Oint) 1 ea TOP Q6 [facility] Last Admin: 12/20/16 05:53 Dose: 1 ea Pantoprazole Sodium (Protonix Inj) 40 mg IVP DAILY [facility] Last Admin: 12/19/16 10:09 Dose: 40 mg Phenol/Menthol (Phenaseptic 1.4% Throat [place]) 0 ml MT Q2H PRN PRN Reason: Sore Throat Last Admin: 12/18/16 10:21 Dose: 1 spr Rosuvastatin Calcium (Crestor) 5 mg PO HS [facility] Last Admin: 12/19/16 21:24 Dose: 5 mg - Labs Labs: 12/20/16 08:06 12/20/16 08:06 - Constitutional Appears: Non-toxic, No Acute Distress - Head Exam Head Exam: ATRAUMATIC, NORMOCEPHALIC - Eye Exam Eye Exam: EOMI, PERRL Pupil Exam: PERRL. absent: Miosis, Mydriatic - ENT Exam ENT Exam: Mucous Membranes Moist, Normal Oropharynx - Neck Exam Neck Exam: Full ROM, Normal Inspection - Respiratory Exam Respiratory Exam: Clear to Ausculation Bilateral. absent: Rales, Rhonchi, Wheezes - Cardiovascular Exam Cardiovascular Exam: RRR, +S1, +S2. absent: Gallop, Rubs - GI/Abdominal Exam GI & Abdominal Exam: Soft, Tenderness, Normal Bowel Sounds. absent: Distended, Firm, Guarding, Rigid, Organomegaly, Rebound Additional comments: diffuse tenderness to palpation - Extremities Exam Extremities Exam: Normal Inspection, Pedal Edema - Neurological Exam Neurological Exam: Alert, Awake - Psychiatric Exam Psychiatric exam: Normal Affect, Normal Mood - Skin Skin Exam: Dry, Intact, Normal Color, Warm Assessment and Plan - Assessment and Plan (Free Text) Assessment: 85 year old female with history of Hypertension, Hyperlipidemia, PE not on anticoagulation, CHF, COPD, Parkinson's disease, and diverticulosis presenting with abdominal pain. Active treatment of partial small bowel obstruction. Prior EGD/Colonoscopy 10/2015 showed LA Grade B esophagitis, moderate hiatal hernia, H. pylori negative chronic gastritis, sigmoid/descending diverticulosis, and moderate internal hemorrhoids. Plan: >5/8 abdominal flat plate- mildly dilated small bowel loops, no obstruction >persistent abdominal discomfort >NPO >pending abdominal xray and SB series >surgery team managing >continue supportive care: chloraseptic spray, antiemetics, pain control >will follow clinical course <Linda Gallardo - Last Filed: 12/20/16 11:56> Objective - Vital Signs/Intake and Output Vital Signs (last 24 hours): Temp Pulse Resp BP Pulse Ox 97.7 F 68 20 149/68 97 12/20/16 08:41 12/20/16 08:41 12/20/16 08:41 12/20/16 08:41 12/20/16 08:41 Intake and Output: 12/20/16 12/20/16 06:59 18:59 Intake Total 650 Balance 650 - Medications Medications: Current Medications Acetylcysteine (Acetylcysteine 20%) 4 ml INH RQ6 [facility] Last Admin: 12/20/16 07:29 Dose: 4 ml Albuterol/Ipratropium (Duoneb 3 Mg/0.5 Mg (3 Ml) Ud) 3 ml INH RQ6 [facility] Last Admin: 12/20/16 07:28 Dose: 3 ml Benzocaine/Menthol (Cepacol Sore Throat) 1 jacquelyn MT Q2H PRN PRN Reason: Sore Throat Last Admin: 12/18/16 13:37 Dose: 1 jacquelyn Carbidopa/Levodopa (Sinemet) 1 tab PO TID [facility] Last Admin: 12/19/16 18:50 Dose: 1 tab Ciprofloxacin (Cipro) 250 mg PO BID [facility] Last Admin: 12/19/16 18:50 Dose: 250 mg Diltiazem HCl (Cardizem Cd) 300 mg PO DAILY [facility] Last Admin: 12/19/16 10:08 Dose: 300 mg Enoxaparin Sodium (Lovenox) 40 mg SC DAILY [facility] Last Admin: 12/19/16 10:08 Dose: 40 mg Potassium Chloride 10 meq/ (Dextrose/Sodium Chloride) 1,005 mls @ 80 mls/hr IV .[id number] [facility] Last Admin: 12/19/16 13:31 Dose: 80 mls/hr Losartan Potassium (Cozaar) 100 mg PO DAILY [facility] Last Admin: 12/19/16 10:09 Dose: 100 mg Metronidazole (Flagyl) 500 mg PO Q8 [facility] Last Admin: 12/20/16 05:54 Dose: 500 mg Morphine Sulfate (Morphine) 2 mg IVP Q4 PRN PRN Reason: pain Last Admin: 12/18/16 10:40 Dose: 2 mg Neomycin/Polymyxin/Hydrocortisone (Cortisporin Otic Soln) 2 drop AU QID [facility] Last Admin: 12/19/16 21:24 Dose: 2 drop Nitroglycerin (Nitro-Bid 2% Oint) 1 ea TOP Q6 [facility] Last Admin: 12/20/16 05:53 Dose: 1 ea Pantoprazole Sodium (Protonix Inj) 40 mg IVP DAILY [facility] Last Admin: 12/19/16 10:09 Dose: 40 mg Phenol/Menthol (Phenaseptic 1.4% Throat [place]) 0 ml MT Q2H PRN PRN Reason: Sore Throat Last Admin: 12/18/16 10:21 Dose: 1 spr Rosuvastatin Calcium (Crestor) 5 mg PO HS [facility] Last Admin: 12/19/16 21:24 Dose: 5 mg - Labs Labs: 12/20/16 08:06 12/20/16 08:06 Attending/Attestation - Attestation I have personally seen and examined this patient.: Yes I have fully participated in the care of the patient.: Yes I have reviewed all pertinent clinical information, including history, physical exam and plan: Yes Notes (Text): Patient seen and examined with GI fellow. Agree with her note as documented above with the following additions/exceptions. This is an 85 year old female with history of HTN, HL, CHF, COPD, Parkinson's disease, and diverticulosis who is admitted with abdominal pain and partial SBO. She had episode of vomitus with trial of clear liquids this morning. Would keep NPO and repeat abdominal imaging/XR. Continue supportive care, pain control and antiemetic therapy as needed. Follow up surgery recommendations. 12/20/16 11:53
[2016-12-20] MEDS ORDERED: Lidocaine 2% Inj (20ml) ONE (12:54)
--- NOTE | 2016-12-20 12:54 | CP.PCM.PN ---
Subjective - Date & Time of Evaluation Date of Evaluation: 12/20/16 Time of Evaluation: 10:30 - Subjective Subjective: Patient seen and examined resting comfortably. c/o abdominal discomfort and pain in right periumbilical area , X ray was done and shows recurrent SBO. Family at bedside noting large vomitus with attempted liquid diet this morning. No bowel movement. Objective - Vital Signs/Intake and Output Vital Signs (last 24 hours): Temp Pulse Resp BP Pulse Ox 97.7 F 68 20 149/68 97 12/20/16 08:41 12/20/16 08:41 12/20/16 08:41 12/20/16 08:41 12/20/16 08:41 Intake and Output: 12/20/16 12/20/16 06:59 18:59 Intake Total 650 Balance 650 - Medications Medications: Current Medications Acetylcysteine (Acetylcysteine 20%) 4 ml INH RQ6 [facility] Last Admin: 12/20/16 07:29 Dose: 4 ml Albuterol/Ipratropium (Duoneb 3 Mg/0.5 Mg (3 Ml) Ud) 3 ml INH RQ6 [facility] Last Admin: 12/20/16 07:28 Dose: 3 ml Benzocaine/Menthol (Cepacol Sore Throat) 1 jacquelyn MT Q2H PRN PRN Reason: Sore Throat Last Admin: 12/18/16 13:37 Dose: 1 jacquelyn Carbidopa/Levodopa (Sinemet) 1 tab PO TID [facility] Last Admin: 12/20/16 11:03 Dose: Not Given Ciprofloxacin (Cipro) 250 mg PO BID [facility] Last Admin: 12/20/16 11:01 Dose: Not Given Diltiazem HCl (Cardizem Cd) 300 mg PO DAILY [facility] Last Admin: 12/20/16 11:00 Dose: Not Given Enoxaparin Sodium (Lovenox) 40 mg SC DAILY [facility] Last Admin: 12/20/16 11:00 Dose: 40 mg Potassium Chloride 10 meq/ (Dextrose/Sodium Chloride) 1,005 mls @ 80 mls/hr IV .[id number] [facility] Last Admin: 12/19/16 13:31 Dose: 80 mls/hr Losartan Potassium (Cozaar) 100 mg PO DAILY [facility] Last Admin: 12/20/16 11:00 Dose: Not Given Metronidazole (Flagyl) 500 mg PO Q8 [facility] Last Admin: 12/20/16 05:54 Dose: 500 mg Morphine Sulfate (Morphine) 2 mg IVP Q4 PRN PRN Reason: pain Last Admin: 12/18/16 10:40 Dose: 2 mg Neomycin/Polymyxin/Hydrocortisone (Cortisporin Otic Soln) 2 drop AU QID [facility] Last Admin: 12/20/16 11:00 Dose: 2 drop Nitroglycerin (Nitro-Bid 2% Oint) 1 ea TOP Q6 [facility] Last Admin: 12/20/16 12:10 Dose: 1 ea Pantoprazole Sodium (Protonix Inj) 40 mg IVP DAILY [facility] Last Admin: 12/20/16 11:00 Dose: Not Given Phenol/Menthol (Phenaseptic 1.4% Throat [place]) 0 ml MT Q2H PRN PRN Reason: Sore Throat Last Admin: 12/18/16 10:21 Dose: 1 spr Rosuvastatin Calcium (Crestor) 5 mg PO HS [facility] Last Admin: 12/19/16 21:24 Dose: 5 mg - Labs Labs: 12/20/16 08:06 12/20/16 08:06 - Constitutional Appears: No Acute Distress - Head Exam Head Exam: ATRAUMATIC, NORMAL INSPECTION, NORMOCEPHALIC - Eye Exam Eye Exam: EOMI, Normal appearance, PERRL Pupil Exam: NORMAL ACCOMODATION, PERRL - Respiratory Exam Respiratory Exam: Clear to Ausculation Bilateral, NORMAL BREATHING PATTERN - Cardiovascular Exam Cardiovascular Exam: REGULAR RHYTHM, +S1, +S2. absent: Murmur - GI/Abdominal Exam GI & Abdominal Exam: Soft, Normal Bowel Sounds. absent: Tenderness - Rectal Exam Rectal Exam: NORMAL INSPECTION Assessment and Plan (1) Abdominal pain Assessment & Plan: NPO repeat abdominal X ray Status: Acute (2) Small bowel obstruction Status: Acute (3) Diabetes mellitus Status: Chronic (4) Hypertension Status: Chronic
--- NOTE | 2016-12-20 13:04 | PCM.SURG1 ---
Surgeon's Initial Post Op Note - Surgeon's Notes Surgeon: Satinder Perkins MD Oil Heater Operator: NONE Type of Anesthesia: Local Pre-Operative Diagnosis: Poor venous acces Operative Findings: Patent brachial vein. Post-Operative Diagnosis: Poor venous access Operation Performed: Single lumen picc placement right brachial vein, 35 cm. Tip in SVC. Specimen/Specimens Removed: None Estimated Blood Loss: EBL {In ML}: 2 Blood Products Given: N/A Drains Used: No Drains Post-Op Condition: Fair Date of Surgery/Procedure: 12/20/16 Time of Surgery/Procedure: 13:00
[2016-12-20] MEDS: Potassium Chloride 10 MEQ in Dextrose 5%/0.45% NS 1,000 ML IV SCH (15:24)
--- NOTE | 2016-12-20 15:50 | CP.PCM.PN ---
Subjective - Date & Time of Evaluation Date of Evaluation: 12/20/16 Time of Evaluation: 07:00 - Subjective Subjective: GENERAL SURGERY PROGRESS NOTE FOR DR. CUENCA Patient seen and examined at bedside. She reported some abdominal pain in the upper abdomen. She denied bowel movement. Denied nausea or vomiting. Later in the morning, the patient vomited after CLD. She was made NPO. GI series with small bowel follow through was ordered. Objective - Vital Signs/Intake and Output Vital Signs (last 24 hours): Temp Pulse Resp BP Pulse Ox 97.7 F 68 20 149/68 97 12/20/16 08:41 12/20/16 08:41 12/20/16 08:41 12/20/16 08:41 12/20/16 08:41 Intake and Output: 12/20/16 12/20/16 06:59 18:59 Intake Total 650 Balance 650 - Medications Medications: Current Medications Acetylcysteine (Acetylcysteine 20%) 4 ml INH RQ6 [facility] Last Admin: 12/20/16 07:29 Dose: 4 ml Albuterol/Ipratropium (Duoneb 3 Mg/0.5 Mg (3 Ml) Ud) 3 ml INH RQ6 [facility] Last Admin: 12/20/16 07:28 Dose: 3 ml Benzocaine/Menthol (Cepacol Sore Throat) 1 jacquelyn MT Q2H PRN PRN Reason: Sore Throat Last Admin: 12/18/16 13:37 Dose: 1 jacquelyn Carbidopa/Levodopa (Sinemet) 1 tab PO TID [facility] Last Admin: 12/20/16 15:24 Dose: 1 tab Ciprofloxacin (Cipro) 250 mg PO BID [facility] Last Admin: 12/20/16 11:01 Dose: Not Given Diltiazem HCl (Cardizem Cd) 300 mg PO DAILY [facility] Last Admin: 12/20/16 11:00 Dose: Not Given Enoxaparin Sodium (Lovenox) 40 mg SC DAILY [facility] Last Admin: 12/20/16 11:00 Dose: 40 mg Potassium Chloride 10 meq/ (Dextrose/Sodium Chloride) 1,005 mls @ 80 mls/hr IV .[id number] [facility] Last Admin: 12/20/16 15:24 Dose: 80 mls/hr Losartan Potassium (Cozaar) 100 mg PO DAILY [facility] Last Admin: 12/20/16 11:00 Dose: Not Given Metronidazole (Flagyl) 500 mg PO Q8 [facility] Last Admin: 12/20/16 15:23 Dose: 500 mg Morphine Sulfate (Morphine) 2 mg IVP Q4 PRN PRN Reason: pain Last Admin: 12/18/16 10:40 Dose: 2 mg Neomycin/Polymyxin/Hydrocortisone (Cortisporin Otic Soln) 2 drop AU QID [facility] Last Admin: 12/20/16 15:23 Dose: 2 drop Nitroglycerin (Nitro-Bid 2% Oint) 1 ea TOP Q6 [facility] Last Admin: 12/20/16 12:10 Dose: 1 ea Pantoprazole Sodium (Protonix Inj) 40 mg IVP DAILY [facility] Last Admin: 12/20/16 11:00 Dose: Not Given Phenol/Menthol (Phenaseptic 1.4% Throat [place]) 0 ml MT Q2H PRN PRN Reason: Sore Throat Last Admin: 12/18/16 10:21 Dose: 1 spr Rosuvastatin Calcium (Crestor) 5 mg PO HS [facility] Last Admin: 12/19/16 21:24 Dose: 5 mg - Labs Labs: 12/20/16 08:06 12/20/16 08:06 - Constitutional Appears: Non-toxic, No Acute Distress - Respiratory Exam Respiratory Exam: NORMAL BREATHING PATTERN. absent: Respiratory Distress - Cardiovascular Exam Cardiovascular Exam: +S1, +S2 - GI/Abdominal Exam GI & Abdominal Exam: Soft, Tenderness (tender in RUQ and LUQ). absent: Distended, Firm, Guarding, Rigid, Rebound - Neurological Exam Neurological Exam: Alert, Awake - Psychiatric Exam Psychiatric exam: Normal Affect, Normal Mood - Skin Skin Exam: Normal Color, Warm Assessment and Plan - Assessment and Plan (Free Text) Assessment: 85yo F with PMHx of CHF, COPD, PE, s/p open cholecystectomy who presented with abdominal pain and was found to have partial SBO. - Afebrile, VSS - NG tube removed 2 days ago - No BM yet, will monitor for return of bowel function - Encouraged ambulation - Vomited large amount after liquids this morning, made NPO again - Xray shows: dilated loops of small bowel (SBO) - Will replace NG tube if abdomen becomes distended - If patient does not improve, will consider OR - Discussed plan with Dr. Jerome Reed PGY-2
[2016-12-20] MEDS: Ciprofloxacin 400mg/200ml D5W 400 MG/200 ML BAG IVPB SCH (17:15)
[2016-12-20] MEDS: metroNIDAZOLE IV 500 mg/100 ml 500 MG/100 ML BAG IVPB SCH (21:47)
[2016-12-20] MEDS ORDERED: DiphenhydrAMINE 50 mg/ml Inj IVP STA (23:04)
[2016-12-20] MEDS ORDERED: Petrolatum Oint Foilpak (5 gm) TOP PRN (23:19)
[2016-12-21] MEDS: Nitroglycerin 2% Ointment Foilpak UD TOP SCH ×4 (00:12→23:57)
[2016-12-21] MEDS: Albuterol-Ipratrop 3 mg / 0.5 (3 ml) UD INH SCH ×3 (01:13→19:35)
[2016-12-21] MEDS: Acetylcysteine 20% Inhal Soln (4ml) INH SCH ×3 (01:15→19:35)
[2016-12-21] MEDS: Ciprofloxacin 400mg/200ml D5W 400 MG/200 ML BAG IVPB SCH (04:45)
[2016-12-21] MEDS: metroNIDAZOLE IV 500 mg/100 ml 500 MG/100 ML BAG IVPB SCH ×3 (06:24→15:10)
--- NOTE | 2016-12-21 07:17 | CP.PCM.PN ---
Subjective - Date & Time of Evaluation Date of Evaluation: 12/21/16 Time of Evaluation: 07:13 - Subjective Subjective: PGY1 Progress note for Dr. Cano: Patient seen and examined. Family at bedside. Patient vomited twice overnight and NGT was placed. Per nursing, 350cc bbilious fluid drained from NGT overnight. Patient vomited again this morning, with NGT. 550cc total drained from NGT since placement. Per report, patient has not had any bowel movements or flatus. Objective - Vital Signs/Intake and Output Vital Signs (last 24 hours): Temp Pulse Resp BP Pulse Ox 98.5 F 86 20 135/77 97 12/20/16 23:33 12/21/16 06:30 12/21/16 06:30 12/21/16 06:30 12/21/16 06:30 Intake and Output: 12/21/16 12/21/16 06:59 18:59 Intake Total 740 Output Total 250 Balance 490 - Medications Medications: Current Medications Acetylcysteine (Acetylcysteine 20%) 4 ml INH RQ6 [facility] Last Admin: 12/21/16 01:15 Dose: 4 ml Albuterol/Ipratropium (Duoneb 3 Mg/0.5 Mg (3 Ml) Ud) 3 ml INH RQ6 [facility] Last Admin: 12/21/16 01:13 Dose: 3 ml Benzocaine/Menthol (Cepacol Sore Throat) 1 jacquelyn MT Q2H PRN PRN Reason: Sore Throat Last Admin: 12/18/16 13:37 Dose: 1 jacquelyn Carbidopa/Levodopa (Sinemet) 1 tab PO TID [facility] Last Admin: 12/20/16 17:15 Dose: 1 tab Diltiazem HCl (Cardizem Cd) 300 mg PO DAILY [facility] Last Admin: 12/20/16 11:00 Dose: Not Given Emollient Ointment (Vaseline Oint) 5 gm TOP BID PRN PRN Reason: Dry skin Last Admin: 12/21/16 01:28 Dose: 5 gm Enoxaparin Sodium (Lovenox) 40 mg SC DAILY [facility] Last Admin: 12/20/16 11:00 Dose: 40 mg Potassium Chloride 10 meq/ (Dextrose/Sodium Chloride) 1,005 mls @ 80 mls/hr IV .[id number] [facility] Last Admin: 12/20/16 15:24 Dose: 80 mls/hr Ciprofloxacin (Cipro 400mg/200ml Dsw) 400 mg in 200 mls @ 133 mls/hr IVPB Q12H [facility] Last Admin: 12/21/16 04:45 Dose: 133 mls/hr Metronidazole (Flagyl) 500 mg in 100 mls @ 100 mls/hr IVPB Q8 [facility] Last Admin: 12/21/16 06:24 Dose: 100 mls/hr Losartan Potassium (Cozaar) 100 mg PO DAILY [facility] Last Admin: 12/20/16 11:00 Dose: Not Given Morphine Sulfate (Morphine) 2 mg IVP Q4 PRN PRN Reason: pain Last Admin: 12/20/16 22:27 Dose: 2 mg Neomycin/Polymyxin/Hydrocortisone (Cortisporin Otic Soln) 2 drop AU QID [facility] Last Admin: 12/20/16 21:47 Dose: 2 drop Nitroglycerin (Nitro-Bid 2% Oint) 1 ea TOP Q6 [facility] Last Admin: 12/21/16 06:30 Dose: 1 ea Pantoprazole Sodium (Protonix Inj) 40 mg IVP DAILY [facility] Last Admin: 12/20/16 11:00 Dose: Not Given Phenol/Menthol (Phenaseptic 1.4% Throat [place]) 0 ml MT Q2H PRN PRN Reason: Sore Throat Last Admin: 12/18/16 10:21 Dose: 1 spr Rosuvastatin Calcium (Crestor) 5 mg PO HS [facility] Last Admin: 12/20/16 21:51 Dose: Not Given - Labs Labs: 12/20/16 08:06 12/20/16 08:06 - Constitutional Appears: Non-toxic, No Acute Distress - Head Exam Head Exam: ATRAUMATIC, NORMOCEPHALIC - Eye Exam Eye Exam: EOMI - Respiratory Exam Respiratory Exam: NORMAL BREATHING PATTERN - GI/Abdominal Exam GI & Abdominal Exam: Soft, Tenderness (RUQ ). absent: Distended, Firm - Neurological Exam Neurological Exam: Alert, Awake - Psychiatric Exam Psychiatric exam: Normal Affect - Skin Skin Exam: Warm Assessment and Plan - Assessment and Plan (Free Text) Assessment: 85yo F with PMHx of CHF, COPD, PE, s/p open cholecystectomy who presented with abdominal pain and was found to have partial SBO. - Patient NPO, NG tube replaced last night after multiple episodes of vomiting - Xray shows: dilated loops of small bowel (SBO) - CT abdomen/ pelvis ordered, will F/U results- patient may need to go to [place] this afternoon pending CT results - Further recs per Dr. Cano
--- NOTE | 2016-12-21 09:17 | CP.PCM.PN ---
<Kaylee Gilbert - Last Filed: 12/21/16 09:15> Subjective - Date & Time of Evaluation Date of Evaluation: 12/21/16 Time of Evaluation: 09:15 - Subjective Subjective: Gastroenterology Fellow/PGY4 Progress Note Patient continues to have abdominal discomfort. NGT output of 300cc. Bilious vomiting episode this morning. No bowel movement. A 12-point review of systems negative except for as above. Objective - Vital Signs/Intake and Output Vital Signs (last 24 hours): Temp Pulse Resp BP Pulse Ox 97.3 F L 61 20 170/97 H 96 12/21/16 08:39 12/21/16 08:39 12/21/16 08:39 12/21/16 08:39 12/21/16 08:39 Intake and Output: 12/21/16 12/21/16 06:59 18:59 Intake Total 740 Output Total 250 Balance 490 - Medications Medications: Current Medications Acetylcysteine (Acetylcysteine 20%) 4 ml INH RQ6 [facility] Last Admin: 12/21/16 08:35 Dose: 4 ml Albuterol/Ipratropium (Duoneb 3 Mg/0.5 Mg (3 Ml) Ud) 3 ml INH RQ6 [facility] Last Admin: 12/21/16 08:35 Dose: 3 ml Benzocaine/Menthol (Cepacol Sore Throat) 1 jacquelyn MT Q2H PRN PRN Reason: Sore Throat Last Admin: 12/18/16 13:37 Dose: 1 jacquelyn Carbidopa/Levodopa (Sinemet) 1 tab PO TID [facility] Last Admin: 12/20/16 17:15 Dose: 1 tab Diltiazem HCl (Cardizem Cd) 300 mg PO DAILY [facility] Last Admin: 12/20/16 11:00 Dose: Not Given Emollient Ointment (Vaseline Oint) 5 gm TOP BID PRN PRN Reason: Dry skin Last Admin: 12/21/16 01:28 Dose: 5 gm Enoxaparin Sodium (Lovenox) 40 mg SC DAILY [facility] Last Admin: 12/20/16 11:00 Dose: 40 mg Potassium Chloride 10 meq/ (Dextrose/Sodium Chloride) 1,005 mls @ 80 mls/hr IV .[id number] [facility] Last Admin: 12/20/16 15:24 Dose: 80 mls/hr Ciprofloxacin (Cipro 400mg/200ml Dsw) 400 mg in 200 mls @ 133 mls/hr IVPB Q12H [facility] Last Admin: 12/21/16 04:45 Dose: 133 mls/hr Metronidazole (Flagyl) 500 mg in 100 mls @ 100 mls/hr IVPB Q8 [facility] Last Admin: 12/21/16 06:24 Dose: 100 mls/hr Losartan Potassium (Cozaar) 100 mg PO DAILY [facility] Last Admin: 12/20/16 11:00 Dose: Not Given Morphine Sulfate (Morphine) 2 mg IVP Q4 PRN PRN Reason: pain Last Admin: 12/20/16 22:27 Dose: 2 mg Neomycin/Polymyxin/Hydrocortisone (Cortisporin Otic Soln) 2 drop AU QID [facility] Last Admin: 12/20/16 21:47 Dose: 2 drop Nitroglycerin (Nitro-Bid 2% Oint) 1 ea TOP Q6 [facility] Last Admin: 12/21/16 06:30 Dose: 1 ea Pantoprazole Sodium (Protonix Inj) 40 mg IVP DAILY [facility] Last Admin: 12/20/16 11:00 Dose: Not Given Phenol/Menthol (Phenaseptic 1.4% Throat [place]) 0 ml MT Q2H PRN PRN Reason: Sore Throat Last Admin: 12/18/16 10:21 Dose: 1 spr Rosuvastatin Calcium (Crestor) 5 mg PO HS [facility] Last Admin: 12/20/16 21:51 Dose: Not Given - Labs Labs: 12/20/16 08:06 12/20/16 08:06 - Constitutional Appears: Non-toxic, No Acute Distress - Head Exam Head Exam: ATRAUMATIC, NORMOCEPHALIC - Eye Exam Eye Exam: EOMI, PERRL Pupil Exam: PERRL. absent: Miosis, Mydriatic - ENT Exam ENT Exam: Mucous Membranes Moist, Normal Oropharynx - Neck Exam Neck Exam: Full ROM, Normal Inspection - Respiratory Exam Respiratory Exam: Clear to Ausculation Bilateral. absent: Rales, Rhonchi, Wheezes - Cardiovascular Exam Cardiovascular Exam: RRR, +S1, +S2. absent: Gallop, Rubs - GI/Abdominal Exam GI & Abdominal Exam: Soft, Tenderness, Normal Bowel Sounds. absent: Distended, Firm, Guarding, Rigid, Organomegaly, Rebound Additional comments: diffuse tenderness to palpation - Extremities Exam Extremities Exam: Normal Inspection, Pedal Edema - Neurological Exam Neurological Exam: Alert, Awake - Psychiatric Exam Psychiatric exam: Normal Affect, Normal Mood - Skin Skin Exam: Dry, Intact, Normal Color, Warm Assessment and Plan - Assessment and Plan (Free Text) Assessment: 85 year old female with history of Hypertension, Hyperlipidemia, PE not on anticoagulation, CHF, COPD, Parkinson's disease, and diverticulosis presenting with abdominal pain. Active treatment of small bowel obstruction. Prior EGD/ Colonoscopy 10/2015 showed LA Grade B esophagitis, moderate hiatal hernia, H. pylori negative chronic gastritis, sigmoid/descending diverticulosis, and moderate internal hemorrhoids. Plan: >12/20 abdominal xray- small bowel obstruction >NPO >NG replaced >persistent abdominal discomfort >supportive care: pain control, antiemetics, IVFs >surgery managing- follow recommendations >will benefit from outpatient follow up for further evaluation <Ezekiel Pulido - Last Filed: 12/21/16 11:26> Objective - Vital Signs/Intake and Output Vital Signs (last 24 hours): Temp Pulse Resp BP Pulse Ox 97.3 F L 61 20 170/97 H 96 12/21/16 08:39 12/21/16 08:39 12/21/16 08:39 12/21/16 08:39 12/21/16 08:39 Intake and Output: 12/21/16 12/21/16 06:59 18:59 Intake Total 740 Output Total 250 Balance 490 - Medications Medications: Current Medications Acetylcysteine (Acetylcysteine 20%) 4 ml INH RQ6 [facility] Last Admin: 12/21/16 08:35 Dose: 4 ml Albuterol/Ipratropium (Duoneb 3 Mg/0.5 Mg (3 Ml) Ud) 3 ml INH RQ6 [facility] Last Admin: 12/21/16 08:35 Dose: 3 ml Benzocaine/Menthol (Cepacol Sore Throat) 1 jacquelyn MT Q2H PRN PRN Reason: Sore Throat Last Admin: 12/18/16 13:37 Dose: 1 jacquelyn Carbidopa/Levodopa (Sinemet) 1 tab PO TID [facility] Last Admin: 12/20/16 17:15 Dose: 1 tab Diltiazem HCl (Cardizem Cd) 300 mg PO DAILY [facility] Last Admin: 12/20/16 11:00 Dose: Not Given Emollient Ointment (Vaseline Oint) 5 gm TOP BID PRN PRN Reason: Dry skin Last Admin: 12/21/16 01:28 Dose: 5 gm Enoxaparin Sodium (Lovenox) 40 mg SC DAILY [facility] Last Admin: 12/20/16 11:00 Dose: 40 mg Potassium Chloride 10 meq/ (Dextrose/Sodium Chloride) 1,005 mls @ 80 mls/hr IV .[id number] [facility] Last Admin: 12/20/16 15:24 Dose: 80 mls/hr Ciprofloxacin (Cipro 400mg/200ml Dsw) 400 mg in 200 mls @ 133 mls/hr IVPB Q12H [facility] Last Admin: 12/21/16 04:45 Dose: 133 mls/hr Metronidazole (Flagyl) 500 mg in 100 mls @ 100 mls/hr IVPB Q8 [facility] Last Admin: 12/21/16 06:24 Dose: 100 mls/hr Losartan Potassium (Cozaar) 100 mg PO DAILY [facility] Last Admin: 12/20/16 11:00 Dose: Not Given Morphine Sulfate (Morphine) 2 mg IVP Q4 PRN PRN Reason: pain Last Admin: 12/20/16 22:27 Dose: 2 mg Neomycin/Polymyxin/Hydrocortisone (Cortisporin Otic Soln) 2 drop AU QID [facility] Last Admin: 12/20/16 21:47 Dose: 2 drop Nitroglycerin (Nitro-Bid 2% Oint) 1 ea TOP Q6 [facility] Last Admin: 12/21/16 06:30 Dose: 1 ea Pantoprazole Sodium (Protonix Inj) 40 mg IVP DAILY [facility] Last Admin: 12/20/16 11:00 Dose: Not Given Phenol/Menthol (Phenaseptic 1.4% Throat [place]) 0 ml MT Q2H PRN PRN Reason: Sore Throat Last Admin: 12/18/16 10:21 Dose: 1 spr Rosuvastatin Calcium (Crestor) 5 mg PO HS [facility] Last Admin: 12/20/16 21:51 Dose: Not Given - Labs Labs: 12/20/16 08:06 12/20/16 08:06 Attending/Attestation - Attestation I have personally seen and examined this patient.: Yes I have fully participated in the care of the patient.: Yes I have reviewed all pertinent clinical information, including history, physical exam and plan: Yes Notes (Text): 12/21/16 11:23 I have seen and examined patient with GI fellow. Patient appears uncomfortable with active bilious vomiting this morning. NGT in place, approximately 300 cc output from morning shift. She continues to endorse abdominal pain. HTN PE CHF h/o cholecystectomy Abdominal pain - small bowel obstruction - NPO - Continue with antibiotic therapy - NGT to suction, monitor output - Given progressive symptoms and failure of conservative management, patient will likely require surgical intervention - Follow up surgical recommendations - No planned GI intervention, will sign off case. Please reconsult as necessary , thank you.
[2016-12-21] MEDS: Neomycin/Polymyxin/Hydrocort Otic Soln BOTTLE AU SCH ×3 (10:50→21:35)
--- NOTE | 2016-12-21 10:58 | CT ---
PROCEDURE: CT Abdomen and Pelvis without Oral or IV contrast. HISTORY: F/U SBO COMPARISON: CT abdomen and pelvis with IV contrast performed 12/16/16 TECHNIQUE: Contiguous axial images of the abdomen and pelvis. No oral or IV contrast administered. Coronal and Sagittal reformats generated and reviewed. Radiation dose: Total exam DLP = 1198.97 mGy-cm. This CT exam was performed using one or more of the following dose reduction techniques: Automated exposure control, adjustment of the mA and/or kV according to patient size, and/or use of iterative reconstruction technique. FINDINGS: There is limited evaluation of the solid organs without the administration of IV contrast. LOWER THORAX: Bilateral lower lobe consolidations. LIVER: Unremarkable unenhanced appearance. GALLBLADDER AND BILE DUCTS: Cholecystectomy. PANCREAS: Unremarkable. No mass. No ductal dilatation. SPLEEN: Unremarkable. No splenomegaly. ADRENALS: Unremarkable. KIDNEYS AND URETERS: No hydronephrosis or obstructing renal calculus. 4.6 cm right lower pole renal hypodensity measures approximately 8 Hounsfield units, consistent with a cyst. BLADDER: Distended urinary bladder. REPRODUCTIVE: Uterus is present. APPENDIX: The appendix appears within normal limits of caliber. No secondary signs of acute appendicitis. BOWEL: Nasogastric tube extends to the stomach. The stomach is nondistended. Lack of oral contrast limits evaluation for bowel pathology. Fluid filled persistently distended small bowel loops remain worrisome for distal obstruction. Diverticulosis without CT evidence of acute diverticulitis. PERITONEUM: No significant free fluid. No definite free air. LYMPH NODES: No bulky lymphadenopathy identified. VASCULATURE: IVC filter. Atherosclerotic calcifications of the aorta and branches. No aortic aneurysm. BONES: Osseous demineralization. Degenerative changes. OTHER FINDINGS: None. IMPRESSION: Fluid filled persistently distended small bowel loops remain worrisome for distal obstruction. Diverticulosis without CT evidence of acute diverticulitis. Marked urinary bladder distention. Additional findings as above.
[2016-12-21] MEDS: diltiaZEM 300 mg/24 Hours CD Cap PO SCH (11:00)
[2016-12-21] MEDS: Enoxaparin 40 mg Syringe SC SCH (11:00)
[2016-12-21 11:44] LABS: BASO % 0.2 % (0.0-2.0); EOS % 0.1 % (0.0-4.0); HEMATOCRIT 32.3 % (34.0-47.0); LYMPH # 0.5 K/uL (1.0-4.3); LYMPH % 9.6 % (20.0-40.0); MEAN CELL VOLUME 82.7 fL (81.0-99.0); MEAN CORPUSCULAR HEMOGLOBIN 26.9 pg (27.0-31.0); MEAN CORPUSCULAR HGB CONC 32.6 g/dL (33.0-37.0); MEAN PLATELET VOLUME 7.2 fL (7.2-11.7); MONO # 0.5 K/uL (0.0-0.8); MONO % 9.7 % (0.0-10.0); PLATELET COUNT 184 K/uL (130-400); RED CELL DISTRIBUTION WIDTH 15.5 % (11.5-14.5); WHITE BLOOD COUNT 4.8 K/uL (4.8-10.8)
[2016-12-21 11:54] LABS: INR 1.1
[2016-12-21 11:58] LABS: CHLORIDE 97 mmol/L (98-107)
[2016-12-21 11:59] LABS: SODIUM 129 mmol/L (132-148)
[2016-12-21 12:01] LABS: ALB/GLOB RATIO 0.8 (1.0-2.1); ALKALINE PHOSPHATASE 49 U/L (38-126); ALT/SGPT 24 U/L (9-52); AST/SGOT 12 U/L (14-36); BILIRUBIN,TOTAL 0.3 mg/dL (0.2-1.3); BLOOD UREA NITROGEN 10 mg/dL (7-17); CARBON DIOXIDE 26 mmol/L (22-30); GFR AFRICAN-AMERICAN > 60; GLUCOSE,RANDOM 130 mg/dL (65-105); TOTAL PROTEIN 5.7 g/dL (6.3-8.3)
[2016-12-21 12:02] LABS: CALCIUM 8.1 mg/dl (8.6-10.4)
[2016-12-21 12:30] LABS: NEUTROPHIL 72 % (50-75); TOTAL CELLS COUNTED 100
[2016-12-21] MEDS ORDERED: Propofol 10 mg/ml Inj (20 ML) ONE (14:27)
[2016-12-21] MEDS ORDERED: Sodium Chloride 0.9% 1,000 ML IV ONE ×2 (14:40→16:00)
[2016-12-21] MEDS ORDERED: Lactated Ringer's 1,000 ML IV ONE (14:40)
[2016-12-21] MEDS ORDERED: Ciprofloxacin 400mg/200ml D5W 400 MG/200 ML BAG IVPB ONE (14:50)
--- NOTE | 2016-12-21 15:02 | CON ---
DATE: 12/21/2016 REASON FOR CONSULTATION: Preoperative evaluation. The history was obtained from the patient's family at the bedside and from the current chart. HISTORY OF PRESENT ILLNESS: The patient is an 85-year-old -[place] female who has a history of hypertension, history of parkinsonism who was initially admitted for bilateral pneumonia and was t ransferred to subacute rehab to be readmitted again because of abdominal pain. The patient is diagno sed with acute small bowel obstruction and decision is made to operate on her this afternoon. The pa malcolm has no known prior cardiac history. She denies any chest pain. The patient 5 years ago has a history of deep venous thrombosis and pulmonary embolism and required IVC filter placement, according to the patient's daughter. The patient denies any chest pain at this time. SOCIAL HISTORY: The patient is nonsmoker, nondrinker. MEDICATIONS: Cardizem-CD 300 mg orally once a day, Cepacol lozenges q. 12 hours p.r.n., Cipro 400 mg intravenously q. 12 hours, Cozaar 100 mg orally daily, Crestor 5 mg at bedtime, Flagyl 500 mg intrav enously q. 8 hours, D5 normal saline with 10 mEq of KCl to each liter at 80 mL an hour, Protonix 40 m g intravenous once a day, Sinemet 1 tablet t.i.d. REVIEW OF SYSTEMS: The patient did experience abdominal pain, distention, nausea and vomiting. No r eported fever or chills. PHYSICAL EXAMINATION: GENERAL: The patient is an elderly female who is uncomfortable because of abdominal discomfort and d istention. VITAL SIGNS: Blood pressure 148/76, heart rate 88, temperature 98.9, respirations 20. HEENT: Pale conjunctivae. CHEST: Diminished breath sounds at the bases. HEART: S1, S2 regular. ABDOMEN: Distended. EXTREMITIES: 1+ pitting edema with chronic skin changes. LABORATORIES: Hemoglobin and hematocrit 10.5 and 32.3. Platelet count and white count are within no rmal limits. SMA-7: Sodium 129, potassium 4.____, chloride 97, CO2 26, glucose 130, BUN 10, creatin ine 0.9. Abdomen and pelvis CT scan was consistent with distal small bowel obstruction, diverticulos is, but no evidence of diverticulitis, bilateral lower lobe consolidation. Echocardiographic study p erformed 12/12/2016 revealed normal ejection fraction and moderate pulmonary hypertension. EKG revea led normal sinus rhythm at a rate of 60. Moderate voltage criteria for LVH. ASSESSMENT: 1. Distal small bowel obstruction. 2. Consider bilateral pneumonia. 3. Hypertension. 4. History of deep venous thrombosis and pulmonary embolism 5 years ago, according to patient's daug hter. RECOMMENDATIONS: The patient can undergo surgical intervention for her distal small bowel obstructio n with close preoperative blood pressure ____ monitoring. Postoperative ICU monitoring. Continue cu rrent intravenous antibiotics including IV Flagyl and IV Cipro. Oral antihypertensive medications ar e currently on hold because the patient is n.p.o. I will obtain a 12-lead EKG postoperatively. Eben Rojas MD cc: [id number] TT: 12/21/2016 15:02:22 Confirmation # [id number] Dictation # [id number] mn
[2016-12-21] MEDS ORDERED: Morphine 4 MG/ML VIAL ONE (16:33)
[2016-12-21] MEDS ORDERED: HYDROmorphone 0.5 mg/0.5 ml ISec IVP PRN (16:59)
--- NOTE | 2016-12-21 16:59 | PCM.SURG1 ---
Surgeon's Initial Post Op Note - Surgeon's Notes Surgeon: Jerome Filing Writer: Matthew PGY2 Type of Anesthesia: General Endo Pre-Operative Diagnosis: SBO Operative Findings: Adhesions, ascites, bezoar in distal small bowel Post-Operative Diagnosis: same Operation Performed: exploratory laparotomy w. lysis of adhesions, small bowel resection, and primary anastomosis Specimen/Specimens Removed: small bowel Estimated Blood Loss: EBL {In ML}: 25 Blood Products Given: N/A Drains Used: No Drains Post-Op Condition: Good Date of Surgery/Procedure: 12/21/16 Time of Surgery/Procedure: 16:59
--- NOTE | 2016-12-21 17:00 | OP ---
PROCEDURE DATE: 12/21/2016 PREOPERATIVE DIAGNOSIS: Intestinal obstruction. POSTOPERATIVE DIAGNOSIS: Intestinal obstruction. PROCEDURE CARRIED OUT: Exploratory laparotomy, lysis of adhesions, small bowel resection with anasto mosis. SURGEON: Dr. Cano BRASS BUFFER: Dr. Castro ANESTHESIOLOGIST: Mr. Shabazz ANESTHESIA: General anesthesia. INDICATIONS: The patient is an elderly woman with history of previous cholecystectomy, admitted with severe abdominal pain, nausea, vomiting. OPERATIVE FINDINGS: There were adhesions initially, but the bowel was clearly obstructed approximate ly 6 inches proximal to the cecum. At this point, there was a marked change in the bowel size and th ere was a hard indurated mass in the bowel at this point. This appeared to be, after we opened the s pecimen, it appeared to be inspissated spinach or greens or vegetable material. There was no tumor. There was no lump. There was no adjacent abnormality detected in the mesentery or in the small bow el, but simply a point of obstruction 6 inches proximal to the cecum with what appeared to be inspiss ated vegetable matter or a bezoar. The entire small bowel was run. The colon was palpated. The res t of the abdominal viscera were palpated and there were no other gross abnormalities detected. We th en divided the small bowel. We then carried out a staple [id number] anastomosis, which restored GI tract continuity. We decompressed the bowel at the same time. The abdomen was closed in running __ __ sutures of Novafil sutures. Blood loss of the procedure was less than 50 mL. The opening of path ology specimen simply revealed inspissated vegetable matter consistent with a bezoar. Elbert Cano Jr., MD cc:Desmond Santiago MD [id number] TT: 12/21/2016 16:59:20
[2016-12-21] MEDS: Lactated Ringer's 1,000 ML IV SCH (17:30)
--- NOTE | 2016-12-21 21:05 | CP.PCM.CON ---
History of Present Illness - History of Present Illness History of Present Illness: HPI:Pt is an elderly 85 yr old AA female who was recently placed in [facility] with PMHx of DM, HTN, Hyperlipidemia, CHF, COPD, PE, s/p abdominal surgery who presents to the ED with abdominal pain on 12/16. Patient was recently admitted from 12/07/16 to 12/13/16 for SOB, COPD, fever, UTI. She was discharged to [place]. Pt was admitted and she was found to have SBO, initially she was treated with NGT suction, NPO , but this evening was operated for laparotomy anShe started having vague cramping abdominal pain yesterday. She had a small bowel movement and was given an enema. After that she had multiple bowel and dissection of adhesion. Now post OP, extubated and admitted to ICU for close monitoring for bein post Op and h/o multiple medical issues including DM, CHF and COPD. PMHx: HTN, hyperlipidemia, anemia, arthritis, CHF, COPD, PE, Parkinsons, pneumonia Surgeries: bilateral knee replacement, back surgery, IVC filter, skin graft, cholecystectomy, midline laparotomy incision Allergies: penicillins Social history: denies etoh, tobacco use Review of Systems - Review of Systems All systems: reviewed and no additional remarkable complaints except - Constitutional Constitutional: As Per HPI - EENT Eyes: As Per HPI Nose/Mouth/Throat: As Per HPI - Respiratory Respiratory: As Per HPI - Genitourinary Genitourinary: As Per HPI Past Patient History - Infectious Disease Hx of Infectious Diseases: None - Past Medical History & Family History Past Medical History?: Yes - Past Social History Smoking Status: Never Smoked - CARDIAC Hx Congestive Heart Failure: Yes (Around 10 yrs ago) Hx Hypercholesterolemia: Yes Hx Hypertension: Yes - PULMONARY Hx Chronic Obstructive Pulmonary Disease (COPD): Yes - NEUROLOGICAL Hx Parkinson's Disease: Yes - HEENT Hx Cataracts: Yes (hx, cataract surgery 4 yrs ago) Other/Comment: wear eyeglasses - RENAL Hx Chronic Kidney Disease: No - ENDOCRINE/METABOLIC Hx Diabetes Mellitus Type 2: Yes - HEMATOLOGICAL/ONCOLOGICAL Hx Anemia: Yes - INTEGUMENTARY Hx Dermatological Problems: No - MUSCULOSKELETAL/RHEUMATOLOGICAL Hx Arthritis: Yes (hx. back surgery; B/L TKR) - GASTROINTESTINAL Hx Gastrointestinal Disorders: No - GENITOURINARY/GYNECOLOGICAL Hx Genitourinary Disorders: No Hx Urinary Tract Infection: Yes - PSYCHIATRIC Hx Substance Use: No - SURGICAL HISTORY Hx Cataract Extraction: Yes Hx Joint Replacement: Yes (Bilateral knee replacement) Other/Comment: Back surgery (Bone fusion), Gallbladder surgery, skin graft surgery left leg, green filter placement - ANESTHESIA Hx Anesthesia: Yes Hx Anesthesia Reactions: No Hx Malignant Hyperthermia: No Meds Allergies/Adverse Reactions: Allergies Allergy/AdvReac Type Severity Reaction Status Date / Time Penicillins Allergy Verified 11/01/15 12:32 - Medications Medications: Current Medications Acetaminophen (Tylenol 325 Mg Supp) 325 mg OK Q6 PRN PRN Reason: Fever >100.4 F Acetylcysteine (Acetylcysteine 20%) 4 ml INH RQ6 [facility] Last Admin: 12/21/16 19:35 Dose: Not Given Albuterol/Ipratropium (Duoneb 3 Mg/0.5 Mg (3 Ml) Ud) 3 ml INH RQ6 [facility] Last Admin: 12/21/16 19:35 Dose: Not Given Benzocaine/Menthol (Cepacol Sore Throat) 1 jacquelyn MT Q2H PRN PRN Reason: Sore Throat Last Admin: 12/18/16 13:37 Dose: 1 jacquelyn Carbidopa/Levodopa (Sinemet) 1 tab PO TID [facility] Last Admin: 12/21/16 14:03 Dose: Not Given Diltiazem HCl (Cardizem Cd) 300 mg PO DAILY [facility] Last Admin: 12/21/16 11:00 Dose: Not Given Emollient Ointment (Vaseline Oint) 5 gm TOP BID PRN PRN Reason: Dry skin Last Admin: 12/21/16 01:28 Dose: 5 gm Heparin Sodium (Porcine) (Heparin) 5,000 units SC Q12 [facility] Hydromorphone HCl (Dilaudid) 0.5 mg IVP Q4H PRN PRN Reason: Pain, moderate (4-7) Ciprofloxacin (Cipro 400mg/200ml Dsw) 400 mg in 200 mls @ 133 mls/hr IVPB Q12H [facility] Last Admin: 12/21/16 04:45 Dose: 133 mls/hr Metronidazole (Flagyl) 500 mg in 100 mls @ 100 mls/hr IVPB Q8 [facility] Last Admin: 12/21/16 15:10 Dose: 100 mls Potassium Chloride/Dextrose/Sod Cl (Potassium Chl 20 Meq In D5-1/2ns) 1,000 mls @ 125 mls/hr IV .Q8H [facility] Lactated Ringer's (Lactated Ringer's) 1,000 mls @ 125 mls/hr IV .Q8H [facility] Stop: 12/22/16 17:01 Last Admin: 12/21/16 17:30 Dose: 300 mls Losartan Potassium (Cozaar) 100 mg PO DAILY [facility] Last Admin: 12/21/16 11:00 Dose: Not Given Neomycin/Polymyxin/Hydrocortisone (Cortisporin Otic Soln) 2 drop AU QID [facility] Last Admin: 12/21/16 14:01 Dose: Not Given Nitroglycerin (Nitro-Bid 2% Oint) 1 ea TOP Q6 [facility] Last Admin: 12/21/16 12:06 Dose: 1 ea Ondansetron HCl (Zofran Inj) 4 mg IVP Q4 PRN PRN Reason: Nausea/Vomiting Pantoprazole Sodium (Protonix Inj) 40 mg IVP DAILY [facility] Last Admin: 12/21/16 10:50 Dose: 40 mg Phenol/Menthol (Phenaseptic 1.4% Throat [place]) 0 ml MT Q2H PRN PRN Reason: Sore Throat Last Admin: 12/18/16 10:21 Dose: 1 spr Rosuvastatin Calcium (Crestor) 5 mg PO HS [facility] Last Admin: 12/20/16 21:51 Dose: Not Given Physical Exam - Head Exam Head Exam: ATRAUMATIC - Eye Exam Eye Exam: Normal appearance - Respiratory Exam Respiratory Exam: NORMAL BREATHING PATTERN - Cardiovascular Exam Cardiovascular Exam: REGULAR RHYTHM - GI/Abdominal Exam GI & Abdominal Exam: Diminished Bowel Sounds Results - Vital Signs Recent Vital Signs: Last Vital Signs Temp 98.6 F 12/21/16 19:45 Pulse 82 12/21/16 20:40 Resp 20 12/21/16 20:40 BP 129/51 L 12/21/16 19:45 Pulse Ox 95 12/21/16 20:40 - Labs Result Diagrams: 12/21/16 11:39 12/21/16 11:39 Labs: Laboratory Results - last 24 hr 12/21/16 12/21/16 12/21/16 11:39 11:39 11:39 WBC 4.8 RBC 3.91 Hgb 10.5 L Hct 32.3 L MCV 82.7 MCH 26.9 L MCHC 32.6 L RDW 15.5 H Plt Count 184 MPV 7.2 Neut % (Auto) 80.4 H Lymph % (Auto) 9.6 L [place] % (Auto) 9.7 Eos % (Auto) 0.1 Baso % (Auto) 0.2 Neut # 3.8 Lymph # 0.5 L [place] # 0.5 Eos # 0.0 Baso # 0.0 Neutrophils % (Manual) 72 Band Neutrophils % 4 H Lymphocytes % (Manual) 18 L Monocytes % (Manual) 6 Platelet Estimate Normal Hypochromasia (manual) Slight Poikilocytosis (manual Slight Anisocytosis (manual) Slight Target Cells Slight PT 12.6 H INR 1.1 APTT 25 Sodium 129 L Potassium 4.0 Chloride 97 L Carbon Dioxide 26 Anion Gap 10 BUN 10 Creatinine 0.9 Est GFR ( Amer) > 60 Est GFR (Non-Af Amer) 60 Random Glucose 130 H Calcium 8.1 L Total Bilirubin 0.3 AST 12 L D ALT 24 Alkaline Phosphatase 49 Total Protein 5.7 L Albumin 2.5 L Globulin 3.2 Albumin/Globulin Ratio 0.8 L Blood Type Antibody Screen Antibody Identification 12/21/16 13:34 WBC RBC Hgb Hct MCV MCH MCHC RDW Plt Count MPV Neut % (Auto) Lymph % (Auto) [place] % (Auto) Eos % (Auto) Baso % (Auto) Neut # Lymph # [place] # Eos # Baso # Neutrophils % (Manual) Band Neutrophils % Lymphocytes % (Manual) Monocytes % (Manual) Platelet Estimate Hypochromasia (manual) Poikilocytosis (manual Anisocytosis (manual) Target Cells PT INR APTT Sodium Potassium Chloride Carbon Dioxide Anion Gap BUN Creatinine Est GFR ( Amer) Est GFR (Non-Af Amer) Random Glucose Calcium Total Bilirubin AST ALT Alkaline Phosphatase Total Protein Albumin Globulin Albumin/Globulin Ratio Blood Type B NEGATIVE Antibody Screen Positive Antibody Identification Anti D Assessment & Plan - Assessment and Plan (Free Text) Assessment: s/p Laparotomy: SBO HTN DM h/o CHF: compensated ANmeia: mild Plan: PLAN: IVF RL 125 cc/h Intermitend suction GT continue current meds, reviewed Labs in am.
[2016-12-21] MEDS: HYDROmorphone 0.5 mg/0.5 ml ISec IVP PRN (23:57)
[2016-12-22] MEDS: Albuterol-Ipratrop 3 mg / 0.5 (3 ml) UD INH SCH ×5 (01:13→20:48)
[2016-12-22] MEDS: Acetylcysteine 20% Inhal Soln (4ml) INH SCH ×4 (01:14→20:49)
--- NOTE | 2016-12-22 01:14 | CP.PCM.PN ---
Subjective - Date & Time of Evaluation Date of Evaluation: 12/21/16 Time of Evaluation: 10:37 - Subjective Subjective: Pt seen and evaluated, s/p OR e,ergeny abdominal surgery Pt was admitted and she was found to have SBO, initially she was treated with NGT suction, NPO , but this evening was operated for laparotomy after She started having vague cramping abdominal pain yesterday. She had a small bowel movement and was given an enema. After that she had multiple bowel and dissection of adhesion. Now post OP, extubated and admitted to ICU for close monitoring for bein post Op and h/o multiple medical issues including DM, CHF and COPD. Objective - Vital Signs/Intake and Output Vital Signs (last 24 hours): Temp Pulse Resp BP Pulse Ox 100 F H 95 H 24 156/47 H 96 12/22/16 00:00 12/22/16 00:00 12/22/16 00:00 12/21/16 23:58 12/22/16 00:00 Intake and Output: 12/21/16 12/22/16 18:59 06:59 Intake Total 480 500 Output Total 1625 325 Balance -1145 175 - Medications Medications: Current Medications Acetaminophen (Tylenol 325 Mg Supp) 325 mg [place] Q6 PRN PRN Reason: Fever >100.4 F Acetylcysteine (Acetylcysteine 20%) 4 ml INH RQ6 [facility] Last Admin: 12/21/16 19:35 Dose: Not Given Albuterol/Ipratropium (Duoneb 3 Mg/0.5 Mg (3 Ml) Ud) 3 ml INH RQ6 [facility] Last Admin: 12/21/16 19:35 Dose: Not Given Benzocaine/Menthol (Cepacol Sore Throat) 1 jacquelyn MT Q2H PRN PRN Reason: Sore Throat Last Admin: 12/18/16 13:37 Dose: 1 jacquelyn Carbidopa/Levodopa (Sinemet) 1 tab PO TID [facility] Last Admin: 12/21/16 14:03 Dose: Not Given Diltiazem HCl (Cardizem Cd) 300 mg PO DAILY [facility] Last Admin: 12/21/16 11:00 Dose: Not Given Emollient Ointment (Vaseline Oint) 5 gm TOP BID PRN PRN Reason: Dry skin Last Admin: 12/21/16 01:28 Dose: 5 gm Heparin Sodium (Porcine) (Heparin) 5,000 units SC Q12 [facility] Last Admin: 12/21/16 21:37 Dose: 5,000 units Hydromorphone HCl (Dilaudid) 0.5 mg IVP Q4H PRN PRN Reason: Pain, moderate (4-7) Last Admin: 12/21/16 23:57 Dose: 0.5 mg Ciprofloxacin (Cipro 400mg/200ml Dsw) 400 mg in 200 mls @ 133 mls/hr IVPB Q12H [facility] Last Admin: 12/21/16 04:45 Dose: 133 mls/hr Metronidazole (Flagyl) 500 mg in 100 mls @ 100 mls/hr IVPB Q8 [facility] Last Admin: 12/21/16 15:10 Dose: 100 mls Potassium Chloride/Dextrose/Sod Cl (Potassium Chl 20 Meq In D5-1/2ns) 1,000 mls @ 125 mls/hr IV .Q8H [facility] Lactated Ringer's (Lactated Ringer's) 1,000 mls @ 125 mls/hr IV .Q8H [facility] Stop: 12/22/16 17:01 Last Admin: 12/21/16 17:30 Dose: 300 mls Losartan Potassium (Cozaar) 100 mg PO DAILY [facility] Last Admin: 12/21/16 11:00 Dose: Not Given Neomycin/Polymyxin/Hydrocortisone (Cortisporin Otic Soln) 2 drop AU QID [facility] Last Admin: 12/21/16 21:35 Dose: 2 drop Nitroglycerin (Nitro-Bid 2% Oint) 1 ea TOP Q6 [facility] Last Admin: 12/21/16 23:57 Dose: 1 ea Ondansetron HCl (Zofran Inj) 4 mg IVP Q4 PRN PRN Reason: Nausea/Vomiting Last Admin: 12/21/16 23:57 Dose: 4 mg Pantoprazole Sodium (Protonix Inj) 40 mg IVP DAILY [facility] Last Admin: 12/21/16 10:50 Dose: 40 mg Phenol/Menthol (Phenaseptic 1.4% Throat [place]) 0 ml MT Q2H PRN PRN Reason: Sore Throat Last Admin: 12/18/16 10:21 Dose: 1 spr Rosuvastatin Calcium (Crestor) 5 mg PO HS [facility] Last Admin: 12/21/16 21:35 Dose: Not Given - Labs Labs: 12/21/16 11:39 12/21/16 11:39 PT 12.6 SECONDS (9.7-12.2) H 12/21/16 11:39 INR 1.1 12/21/16 11:39 APTT 25 SECONDS (21-34) 12/21/16 11:39 - Constitutional Appears: No Acute Distress, Confused - Head Exam Head Exam: ATRAUMATIC, NORMAL INSPECTION, NORMOCEPHALIC - Eye Exam Eye Exam: EOMI, Normal appearance, PERRL Pupil Exam: NORMAL ACCOMODATION, PERRL - ENT Exam ENT Exam: Mucous Membranes Moist, Normal Exam - Respiratory Exam Respiratory Exam: Clear to Ausculation Bilateral, NORMAL BREATHING PATTERN - Cardiovascular Exam Cardiovascular Exam: REGULAR RHYTHM, +S1, +S2. absent: Murmur - GI/Abdominal Exam GI & Abdominal Exam: Soft, Normal Bowel Sounds Additional comments: post op abdomen - Neurological Exam Additional comments: arousable weak Assessment and Plan (1) Abdominal pain Status: Acute (2) Small bowel obstruction Status: Acute (3) Diabetes mellitus Status: Chronic (4) Hypertension Status: Chronic
[2016-12-22] MEDS: Lactated Ringer's 1,000 ML IV SCH ×3 (01:28→19:33)
[2016-12-22] MEDS: Ciprofloxacin 400mg/200ml D5W 400 MG/200 ML BAG IVPB SCH ×2 (04:15→17:47)
[2016-12-22] MEDS: Nitroglycerin 2% Ointment Foilpak UD TOP SCH ×3 (05:38→17:57)
[2016-12-22] MEDS: metroNIDAZOLE IV 500 mg/100 ml 500 MG/100 ML BAG IVPB SCH ×3 (05:38→23:00)
[2016-12-22 06:10] LABS: BASO % 0.1 % (0.0-2.0); EOS % 0.1 % (0.0-4.0); HEMATOCRIT 31.9 % (34.0-47.0); LYMPH # 0.4 K/uL (1.0-4.3); LYMPH % 7.6 % (20.0-40.0); MEAN CELL VOLUME 83.2 fL (81.0-99.0); MEAN CORPUSCULAR HEMOGLOBIN 27.6 pg (27.0-31.0); MEAN CORPUSCULAR HGB CONC 33.2 g/dL (33.0-37.0); MEAN PLATELET VOLUME 7.3 fL (7.2-11.7); MONO # 0.3 K/uL (0.0-0.8); MONO % 6.5 % (0.0-10.0); PLATELET COUNT 165 K/uL (130-400); RED CELL DISTRIBUTION WIDTH 15.3 % (11.5-14.5); WHITE BLOOD COUNT 5.2 K/uL (4.8-10.8)
[2016-12-22 06:19] LABS: CHLORIDE 99 mmol/L (98-107)
[2016-12-22 06:20] LABS: POTASSIUM 4.3 mmol/L (3.6-5.2); SODIUM 129 mmol/L (132-148)
[2016-12-22 06:22] LABS: ALKALINE PHOSPHATASE 38 U/L (38-126); AST/SGOT 12 U/L (14-36); BILIRUBIN,TOTAL 0.6 mg/dL (0.2-1.3); BLOOD UREA NITROGEN 14 mg/dL (7-17); CARBON DIOXIDE 23 mmol/L (22-30); GFR AFRICAN-AMERICAN > 60; GLUCOSE,RANDOM 150 mg/dL (65-105)
[2016-12-22 06:23] LABS: ALT/SGPT 22 U/L (9-52); CALCIUM 7.3 mg/dl (8.6-10.4)
[2016-12-22 06:37] LABS: ALB/GLOB RATIO 0.9 (1.0-2.1)
--- NOTE | 2016-12-22 07:26 | RAD ---
HISTORY: aspiration COMPARISON: Comparison is made to the previous study dated 12/16/2016 FINDINGS: LUNGS: Interval appearance of focal opacity at the left lung base likely atelectasis. PLEURA: Blunting of the left costophrenic angle. CARDIOVASCULAR: The cardiac silhouette is mildly enlarged. OSSEOUS STRUCTURES: No significant abnormalities. VISUALIZED UPPER ABDOMEN: Normal. OTHER FINDINGS: Right-sided PICC line is noted. The tip is likely at the distal SVC. IMPRESSION: Interval insertion of right-sided PICC line seen at appropriate position with the tip is likely at the distal SVC. Interval appearance of small focal opacity at the left lung base likely atelectasis.
[2016-12-22] MEDS: HYDROmorphone 0.5 mg/0.5 ml ISec IVP PRN ×3 (07:53→18:31)
[2016-12-22 08:22] LABS: NEUTROPHIL 56 % (50-75); TOTAL CELLS COUNTED 100
--- NOTE | 2016-12-22 08:34 | CP.PCM.PN ---
Subjective - Date & Time of Evaluation Date of Evaluation: 12/22/16 Time of Evaluation: 08:29 - Subjective Subjective: Surgery: Dr. Cano Pt seen and examined. No acute events overnight. Pain is controlled. Objective - Vital Signs/Intake and Output Vital Signs (last 24 hours): Temp Pulse Resp BP Pulse Ox 98.8 F 102 H 21 136/60 100 12/22/16 04:00 12/22/16 07:00 12/22/16 07:00 12/22/16 06:58 12/22/16 07:00 Intake and Output: 12/22/16 12/22/16 06:59 18:59 Intake Total 1300 125 Output Total 520 Balance 780 125 - Medications Medications: Current Medications Acetaminophen (Tylenol 325 Mg Supp) 325 mg NV Q6 PRN PRN Reason: Fever >100.4 F Acetylcysteine (Acetylcysteine 20%) 4 ml INH RQ6 [facility] Last Admin: 12/22/16 07:56 Dose: 4 ml Albuterol/Ipratropium (Duoneb 3 Mg/0.5 Mg (3 Ml) Ud) 3 ml INH RQ6 [facility] Last Admin: 12/22/16 07:56 Dose: 3 ml Benzocaine/Menthol (Cepacol Sore Throat) 1 jacquelyn MT Q2H PRN PRN Reason: Sore Throat Last Admin: 12/18/16 13:37 Dose: 1 jacquelyn Carbidopa/Levodopa (Sinemet) 1 tab PO TID [facility] Last Admin: 12/21/16 14:03 Dose: Not Given Diltiazem HCl (Cardizem Cd) 300 mg PO DAILY [facility] Last Admin: 12/21/16 11:00 Dose: Not Given Emollient Ointment (Vaseline Oint) 5 gm TOP BID PRN PRN Reason: Dry skin Last Admin: 12/21/16 01:28 Dose: 5 gm Heparin Sodium (Porcine) (Heparin) 5,000 units SC Q12 [facility] Last Admin: 12/21/16 21:37 Dose: 5,000 units Hydromorphone HCl (Dilaudid) 0.5 mg IVP Q4H PRN PRN Reason: Pain, moderate (4-7) Last Admin: 12/22/16 07:53 Dose: 0.5 mg Ciprofloxacin (Cipro 400mg/200ml Dsw) 400 mg in 200 mls @ 133 mls/hr IVPB Q12H [facility] Last Admin: 12/22/16 04:15 Dose: 133 mls/hr Metronidazole (Flagyl) 500 mg in 100 mls @ 100 mls/hr IVPB Q8 [facility] Last Admin: 12/22/16 05:38 Dose: 100 mls/hr Potassium Chloride/Dextrose/Sod Cl (Potassium Chl 20 Meq In D5-1/2ns) 1,000 mls @ 125 mls/hr IV .Q8H [facility] Lactated Ringer's (Lactated Ringer's) 1,000 mls @ 125 mls/hr IV .Q8H [facility] Stop: 12/22/16 17:01 Last Admin: 12/22/16 01:28 Dose: 125 mls/hr Losartan Potassium (Cozaar) 100 mg PO DAILY [facility] Last Admin: 12/21/16 11:00 Dose: Not Given Neomycin/Polymyxin/Hydrocortisone (Cortisporin Otic Soln) 2 drop AU QID [facility] Last Admin: 12/21/16 21:35 Dose: 2 drop Nitroglycerin (Nitro-Bid 2% Oint) 1 ea TOP Q6 [facility] Last Admin: 12/22/16 05:38 Dose: 1 ea Ondansetron HCl (Zofran Inj) 4 mg IVP Q4 PRN PRN Reason: Nausea/Vomiting Last Admin: 12/21/16 23:57 Dose: 4 mg Pantoprazole Sodium (Protonix Inj) 40 mg IVP DAILY [facility] Last Admin: 12/21/16 10:50 Dose: 40 mg Phenol/Menthol (Phenaseptic 1.4% Throat [place]) 0 ml MT Q2H PRN PRN Reason: Sore Throat Last Admin: 12/18/16 10:21 Dose: 1 spr Rosuvastatin Calcium (Crestor) 5 mg PO HS [facility] Last Admin: 12/21/16 21:35 Dose: Not Given - Labs Labs: 12/22/16 06:02 12/22/16 06:02 PT 12.6 SECONDS (9.7-12.2) H 12/21/16 11:39 INR 1.1 12/21/16 11:39 APTT 25 SECONDS (21-34) 12/21/16 11:39 - Constitutional Appears: Non-toxic, No Acute Distress - Head Exam Head Exam: ATRAUMATIC, NORMOCEPHALIC - Eye Exam Eye Exam: EOMI - ENT Exam ENT Exam: Mucous Membranes Moist - Neck Exam Neck Exam: Full ROM - Respiratory Exam Respiratory Exam: NORMAL BREATHING PATTERN. absent: Accessory Muscle Use, Respiratory Distress - GI/Abdominal Exam GI & Abdominal Exam: Soft. absent: Distended, Firm, Guarding, Rigid, Tenderness , Rebound Additional comments: Midline incision C/D/I - Extremities Exam Extremities Exam: absent: Calf Tenderness, Pedal Edema - Neurological Exam Neurological Exam: Alert, Awake Assessment and Plan - Assessment and Plan (Free Text) Assessment: 85F w. SBO 2/2 bezoar, s/p exl-lap w. small bowel resection and primary anasotmosis, POD#1 -NGT 20cc/12 hr bilious, will clamp NGT -serial abd exams -keep NPO -c/w IVF -monitor bowel fxn -d/w attending Matthew PGY2
--- NOTE | 2016-12-22 10:44 | CP.CCUPN ---
<Duane Bustillo - Last Filed: 12/22/16 10:53> CCU Subjective - Physician Review Subjective (Free Text): 12/22/16 10:53 Pt seen and examined at bedside. Pt is POD#1 Ex-Lap w. small bowel resection and primary anastomosis. NGT in place, draining 20cc in last 12 hours. Pt remains NPO. Spoke with son in room and asked him to remind pt to continue incentive spirometry. Critical Care Time Spent (in minutes): 40 CCU Objective - Vital Signs / Intake & Output Vital Signs (Last 4 hours): Vital Signs Pulse Resp BP Pulse Ox 12/22/16 08:00 100 H 20 100 12/22/16 07:58 101 H 21 125/54 L 100 12/22/16 07:00 102 H 21 100 12/22/16 06:58 100 H 17 136/60 100 Intake and Output (Last 8hrs): Intake & Output 12/21/16 12/22/16 12/22/16 22:59 06:59 14:59 Intake Total 730 1050 250 Output Total 1885 260 30 Balance -1155 790 220 Weight 205 lb Intake: Intake, IV Amount 730 1050 250 Right PICC 250 1050 250 Right Upper arm 480 Oral 0 Output: Gastric Drainage 100 Gastric Amount 300 20 Right Nares 300 20 Urine 1385 240 30 Urethral (Lewis) 60 240 30 Emesis 100 Other: # Voids Urine, Voided 1 # Bowel Movements 0 - Physical Exam Physical Exam Limitations: Positive for: Altered Mental Status (pt demented at baseline per son) Head: Positive for: Atraumatic, Normocephalic Pupils: Positive for: PERRL Extroacular Muscles: Positive for: EOMI Conjunctiva: Positive for: Normal Mouth: Positive for: Moist Mucous Membranes Neck: Positive for: Normal Range of Motion Respiratory/Chest: Positive for: Clear to Auscultation. Negative for: Respiratory Distress, Accessory Muscle Use Cardiovascular: Positive for: Regular Rate and Rhythm, Normal S1, S2 Abdomen: Positive for: Tenderness (appropriate around surgical wound), Normal Bowel Sounds, Other (midline incision C/D/I). Negative for: Distention Upper Extremity: Positive for: Normal Inspection. Negative for: Edema Lower Extremity: Positive for: Normal Inspection. Negative for: CALF TENDERNESS Neurological: Positive for: GCS=15, Speech Normal. Negative for: CN II-XII Intact Skin: Positive for: Warm, Dry Psychiatric: Positive for: Alert. Negative for: Oriented x 3 (demented at baseline) - Medications Active Medications: Active Medications Generic Name Dose Route Start Last Admin Trade Name Freq PRN Reason Stop Dose Admin Acetaminophen 325 mg 12/21/16 17:12 Tylenol 325 Mg Supp NC Q6 PRN Fever >100.4 F Acetylcysteine 4 ml 12/16/16 02:00 12/22/16 07:56 Acetylcysteine 20% INH 4 ml RQ6 DESIRAE Administration Albuterol/Ipratropium 3 ml 12/16/16 02:30 12/22/16 07:56 Duoneb 3 Mg/0.5 Mg (3 Ml) Ud INH 3 ml RQ6 DESIRAE Administration Benzocaine/Menthol 1 jacquelyn 12/17/16 10:08 12/18/16 13:37 Cepacol Sore Throat MT 1 jacquelyn Q2H PRN Administration Sore Throat Carbidopa/Levodopa 1 tab 12/19/16 18:00 12/21/16 14:03 Sinemet PO Not Given TID DESIRAE Diltiazem HCl 300 mg 12/16/16 10:00 12/21/16 11:00 Cardizem Cd PO Not Given DAILY DESIRAE Emollient Ointment 5 gm 12/20/16 23:19 12/21/16 01:28 Vaseline Oint TOP 5 gm BID PRN Administration Dry skin Heparin Sodium (Porcine) 5,000 units 12/21/16 22:00 12/21/16 21:37 Heparin SC 5,000 units Q12 DESIRAE Administration Hydromorphone HCl 0.5 mg 12/21/16 17:02 12/22/16 07:53 Dilaudid IVP 0.5 mg Q4H PRN Administration Pain, moderate (4-7) Ciprofloxacin 400 mg in 200 mls @ 133 mls/hr 12/20/16 17:00 12/22/16 04:15 Cipro 400mg/200ml Dsw IVPB 133 mls/hr Q12H DESIRAE Administration Metronidazole 500 mg in 100 mls @ 100 mls/hr 12/20/16 22:00 12/22/16 05:38 Flagyl IVPB 100 mls/hr Q8 DESIRAE Administration Potassium Chloride/Dextrose/Sod Cl 1,000 mls @ 125 mls/hr 12/22/16 17:15 Potassium Chl 20 Meq In D5-1/2ns IV .Q8H DESIRAE Lactated Ringer's 1,000 mls @ 125 mls/hr 12/21/16 17:00 12/22/16 01:28 Lactated Ringer's IV 12/22/16 17:01 125 mls/hr .Q8H DESIRAE Administration Losartan Potassium 100 mg 12/16/16 10:00 12/21/16 11:00 Cozaar PO Not Given DAILY DESIRAE Neomycin/Polymyxin/Hydrocortisone 2 drop 12/16/16 14:00 12/21/16 21:35 Cortisporin Otic Soln AU 2 drop QID DESIRAE Administration Nitroglycerin 1 ea 12/17/16 12:00 12/22/16 05:38 Nitro-Bid 2% Oint TOP 1 ea Q6 DESIRAE Administration Ondansetron HCl 4 mg 12/21/16 17:03 12/21/16 23:57 Zofran Inj IVP 4 mg Q4 PRN Administration Nausea/Vomiting Pantoprazole Sodium 40 mg 12/16/16 10:00 12/21/16 10:50 Protonix Inj IVP 40 mg DAILY DESIRAE Administration Phenol/Menthol 0 ml 12/18/16 08:13 12/18/16 10:21 Phenaseptic 1.4% Throat [place] MT 1 spr Q2H PRN Administration Sore Throat Rosuvastatin Calcium 5 mg 12/16/16 22:00 12/21/16 21:35 Crestor PO Not Given HS DESIRAE - Patient Studies Lab Studies: Microbiology Studies 12/21/16 16:25 Gram Stain - Final Abdomen Lab Studies 12/22/16 12/22/16 12/21/16 Range/Units 06:02 06:02 13:34 WBC 5.2 (4.8-10.8) K/uL RBC 3.83 (3.80-5.20) Mil/uL Hgb 10.6 L (11.0-16.0) g/dL Hct 31.9 L (34.0-47.0) % MCV 83.2 (81.0-99.0) fL MCH 27.6 (27.0-31.0) pg MCHC 33.2 (33.0-37.0) g/dL RDW 15.3 H (11.5-14.5) % Plt Count 165 (130-400) K/uL MPV 7.3 (7.2-11.7) fL Neut % (Auto) 85.7 H (50.0-75.0) % Lymph % (Auto) 7.6 L (20.0-40.0) % Divide % (Auto) 6.5 (0.0-10.0) % Eos % (Auto) 0.1 (0.0-4.0) % Baso % (Auto) 0.1 (0.0-2.0) % Neut # 4.5 (1.8-7.0) K/uL Lymph # 0.4 L (1.0-4.3) K/uL Divide # 0.3 (0.0-0.8) K/uL Eos # 0.0 (0.0-0.7) K/uL Baso # 0.0 (0.0-0.2) K/uL Neutrophils % (Manual) 56 (50-75) % Band Neutrophils % 31 H* (0-2) % Lymphocytes % (Manual) 8 L (20-40) % Monocytes % (Manual) 5 (0-10) % Platelet Estimate Normal (NORMAL) Hypochromasia (manual) Slight Poikilocytosis (manual Slight Anisocytosis (manual) Slight Macrocytosis (manual) Slight Target Cells PT (9.7-12.2) SECONDS INR APTT (21-34) SECONDS Sodium 129 L (132-148) mmol/L Potassium 4.3 (3.6-5.2) mmol/L Chloride 99 (98-107) mmol/L Carbon Dioxide 23 (22-30) mmol/L Anion Gap 11 (10-20) BUN 14 (7-17) mg/dL Creatinine 1.0 (0.7-1.2) MG/DL Est GFR ( Amer) > 60 Est GFR (Non-Af Amer) 53 Random Glucose 150 H (65-105) mg/dL Calcium 7.3 L (8.6-10.4) mg/dl Total Bilirubin 0.6 (0.2-1.3) mg/dL AST 12 L (14-36) U/L ALT 22 (9-52) U/L Alkaline Phosphatase 38 D (38-126) U/L Total Protein 5.0 L (6.3-8.3) g/dL Albumin 2.3 L (3.5-5.0) g/dL Globulin 2.7 (2.2-3.9) gm/dL Albumin/Globulin Ratio 0.9 L (1.0-2.1) Blood Type B NEGATIVE Antibody Screen Positive Antibody Identification Anti D 12/21/16 12/21/16 12/21/16 Range/Units 11:39 11:39 11:39 WBC 4.8 (4.8-10.8) K/uL RBC 3.91 (3.80-5.20) Mil/uL Hgb 10.5 L (11.0-16.0) g/dL Hct 32.3 L (34.0-47.0) % MCV 82.7 (81.0-99.0) fL MCH 26.9 L (27.0-31.0) pg MCHC 32.6 L (33.0-37.0) g/dL RDW 15.5 H (11.5-14.5) % Plt Count 184 (130-400) K/uL MPV 7.2 (7.2-11.7) fL Neut % (Auto) 80.4 H (50.0-75.0) % Lymph % (Auto) 9.6 L (20.0-40.0) % Divide % (Auto) 9.7 (0.0-10.0) % Eos % (Auto) 0.1 (0.0-4.0) % Baso % (Auto) 0.2 (0.0-2.0) % Neut # 3.8 (1.8-7.0) K/uL Lymph # 0.5 L (1.0-4.3) K/uL Divide # 0.5 (0.0-0.8) K/uL Eos # 0.0 (0.0-0.7) K/uL Baso # 0.0 (0.0-0.2) K/uL Neutrophils % (Manual) 72 (50-75) % Band Neutrophils % 4 H (0-2) % Lymphocytes % (Manual) 18 L (20-40) % Monocytes % (Manual) 6 (0-10) % Platelet Estimate Normal (NORMAL) Hypochromasia (manual) Slight Poikilocytosis (manual Slight Anisocytosis (manual) Slight Macrocytosis (manual) Target Cells Slight PT 12.6 H (9.7-12.2) SECONDS INR 1.1 APTT 25 (21-34) SECONDS Sodium 129 L (132-148) mmol/L Potassium 4.0 (3.6-5.2) mmol/L Chloride 97 L (98-107) mmol/L Carbon Dioxide 26 (22-30) mmol/L Anion Gap 10 (10-20) BUN 10 (7-17) mg/dL Creatinine 0.9 (0.7-1.2) MG/DL Est GFR ( Amer) > 60 Est GFR (Non-Af Amer) 60 Random Glucose 130 H (65-105) mg/dL Calcium 8.1 L (8.6-10.4) mg/dl Total Bilirubin 0.3 (0.2-1.3) mg/dL AST 12 L D (14-36) U/L ALT 24 (9-52) U/L Alkaline Phosphatase 49 (38-126) U/L Total Protein 5.7 L (6.3-8.3) g/dL Albumin 2.5 L (3.5-5.0) g/dL Globulin 3.2 (2.2-3.9) gm/dL Albumin/Globulin Ratio 0.8 L (1.0-2.1) Blood Type Antibody Screen Antibody Identification Laboratory Results - last 24 hr 12/21/16 12/21/16 12/21/16 11:39 11:39 11:39 WBC 4.8 RBC 3.91 Hgb 10.5 L Hct 32.3 L MCV 82.7 MCH 26.9 L MCHC 32.6 L RDW 15.5 H Plt Count 184 MPV 7.2 Neut % (Auto) 80.4 H Lymph % (Auto) 9.6 L Divide % (Auto) 9.7 Eos % (Auto) 0.1 Baso % (Auto) 0.2 Neut # 3.8 Lymph # 0.5 L Divide # 0.5 Eos # 0.0 Baso # 0.0 Neutrophils % (Manual) 72 Band Neutrophils % 4 H Lymphocytes % (Manual) 18 L Monocytes % (Manual) 6 Platelet Estimate Normal Hypochromasia (manual) Slight Poikilocytosis (manual Slight Anisocytosis (manual) Slight Macrocytosis (manual) Target Cells Slight PT 12.6 H INR 1.1 APTT 25 Sodium 129 L Potassium 4.0 Chloride 97 L Carbon Dioxide 26 Anion Gap 10 BUN 10 Creatinine 0.9 Est GFR ( Amer) > 60 Est GFR (Non-Af Amer) 60 Random Glucose 130 H Calcium 8.1 L Total Bilirubin 0.3 AST 12 L D ALT 24 Alkaline Phosphatase 49 Total Protein 5.7 L Albumin 2.5 L Globulin 3.2 Albumin/Globulin Ratio 0.8 L Blood Type Antibody Screen Antibody Identification 12/21/16 12/22/16 12/22/16 13:34 06:02 06:02 WBC 5.2 RBC 3.83 Hgb 10.6 L Hct 31.9 L MCV 83.2 MCH 27.6 MCHC 33.2 RDW 15.3 H Plt Count 165 MPV 7.3 Neut % (Auto) 85.7 H Lymph % (Auto) 7.6 L Divide % (Auto) 6.5 Eos % (Auto) 0.1 Baso % (Auto) 0.1 Neut # 4.5 Lymph # 0.4 L Divide # 0.3 Eos # 0.0 Baso # 0.0 Neutrophils % (Manual) 56 Band Neutrophils % 31 H* Lymphocytes % (Manual) 8 L Monocytes % (Manual) 5 Platelet Estimate Normal Hypochromasia (manual) Slight Poikilocytosis (manual Slight Anisocytosis (manual) Slight Macrocytosis (manual) Slight Target Cells PT INR APTT Sodium 129 L Potassium 4.3 Chloride 99 Carbon Dioxide 23 Anion Gap 11 BUN 14 Creatinine 1.0 Est GFR ( Amer) > 60 Est GFR (Non-Af Amer) 53 Random Glucose 150 H Calcium 7.3 L Total Bilirubin 0.6 AST 12 L ALT 22 Alkaline Phosphatase 38 D Total Protein 5.0 L Albumin 2.3 L Globulin 2.7 Albumin/Globulin Ratio 0.9 L Blood Type B NEGATIVE Antibody Screen Positive Antibody Identification Anti D Review of Systems - Review of Systems Systems not reviewed;Unavailable: Altered Mental Status - Constitutional Constitutional: absent: Fever, Chills - Cardiovascular Cardiovascular: absent: Chest Pain - Respiratory Respiratory: absent: Dyspnea, Dyspnea on Exertion - Gastrointestinal Gastrointestinal: Abdominal Pain. absent: Nausea, Vomiting Critical Care Progress Note - Nutrition Nutrition: Nutrition Category Date Time Status NPO Diet [DIET] Diets 12/20/16 Breakfast Active Assessment/Plan - Assessment and Plan (Free Text) Assessment: 85F w. SBO 2/2 bezoar, s/p exl-lap w. small bowel resection and primary anasotmosis, POD#1 Plan: Neuro: Hx of Parkinsons Sinemet 1 tab PO TID AOx1 only Cardiovascular: HTN Cardizem cd 300mg PO daily Losartan 100mg PO Daily Nitro Topical Hyperlipidemia Crestor 5mg PO HS Pulmonary: COPD Duoneb Q6H CXR (12/21): small focal opacity at left lung base is likely atelectasis (see full report) Gastrointestinal: NPO diet KCl 20meq in D5/0.5 NS @ 125cc/hr AST/ALT WNL SBO Conservative therapy failure CT A/P (12/16/16): dilated fluid filled SB loops mainly in LUQ, slightly prominent wall and fold enhancement of these loops, distal ileum decompressed, RLQ transition point, consistent w/ distal partial SBO CT A/P (12/21/16): Fluid filled persistently distended small bowel loops remain worrisome for distal obstruction. Diverticulosis w/o CT evidence of diverticulitis. Marked urinary bladder distention (see full report). 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 Chato Bustillo, PGY-1 <Johnson Reis S - Last Filed: 12/22/16 14:00> CCU Objective - Vital Signs / Intake & Output Intake and Output (Last 8hrs): Intake & Output 12/21/16 12/22/16 12/22/16 22:59 06:59 14:59 Intake Total 730 1050 250 Output Total 1885 260 30 Balance -1155 790 220 Weight 205 lb Intake: Intake, IV Amount 730 1050 250 Right PICC 250 1050 250 Right Upper arm 480 Oral 0 Output: Gastric Drainage 100 Gastric Amount 300 20 Right Nares 300 20 Urine 1385 240 30 Urethral (Lewis) 60 240 30 Emesis 100 Other: # Voids Urine, Voided 1 # Bowel Movements 0 - Medications Active Medications: Active Medications Generic Name Dose Route Start Last Admin Trade Name Freq PRN Reason Stop Dose Admin Acetaminophen 325 mg 12/21/16 17:12 Tylenol 325 Mg Supp NC Q6 PRN Fever >100.4 F Acetylcysteine 4 ml 12/16/16 02:00 12/22/16 13:37 Acetylcysteine 20% INH 4 ml RQ6 DESIRAE Administration Albuterol/Ipratropium 3 ml 12/16/16 02:30 12/22/16 13:37 Duoneb 3 Mg/0.5 Mg (3 Ml) Ud INH 3 ml RQ6 DESIRAE Administration Benzocaine/Menthol 1 jacquelyn 12/17/16 10:08 12/18/16 13:37 Cepacol Sore Throat MT 1 jacquelyn Q2H PRN Administration Sore Throat Carbidopa/Levodopa 1 tab 12/19/16 18:00 12/22/16 11:21 Sinemet PO Not Given TID DESIRAE Diltiazem HCl 300 mg 12/16/16 10:00 12/22/16 11:17 Cardizem Cd PO Not Given DAILY DESIRAE Emollient Ointment 5 gm 12/20/16 23:19 12/21/16 01:28 Vaseline Oint TOP 5 gm BID PRN Administration Dry skin Heparin Sodium (Porcine) 5,000 units 12/21/16 22:00 12/22/16 11:19 Heparin SC 5,000 units Q12 DESIRAE Administration Hydromorphone HCl 0.5 mg 12/21/16 17:02 12/22/16 07:53 Dilaudid IVP 0.5 mg Q4H PRN Administration Pain, moderate (4-7) Ciprofloxacin 400 mg in 200 mls @ 133 mls/hr 12/20/16 17:00 12/22/16 04:15 Cipro 400mg/200ml Dsw IVPB 133 mls/hr Q12H DESIRAE Administration Metronidazole 500 mg in 100 mls @ 100 mls/hr 12/20/16 22:00 12/22/16 05:38 Flagyl IVPB 100 mls/hr Q8 DESIRAE Administration Potassium Chloride/Dextrose/Sod Cl 1,000 mls @ 125 mls/hr 12/22/16 17:15 Potassium Chl 20 Meq In D5-1/2ns IV .Q8H DESIRAE Lactated Ringer's 1,000 mls @ 125 mls/hr 12/21/16 17:00 12/22/16 11:19 Lactated Ringer's IV 12/22/16 17:01 Not Given .Q8H DESIRAE Losartan Potassium 100 mg 12/16/16 10:00 12/22/16 11:18 Cozaar PO Not Given DAILY DESIRAE Neomycin/Polymyxin/Hydrocortisone 2 drop 12/16/16 14:00 12/22/16 11:18 Cortisporin Otic Soln AU 2 drop QID DESIREA Administration Nitroglycerin 1 ea 12/17/16 12:00 12/22/16 11:20 Nitro-Bid 2% Oint TOP 1 ea Q6 DESIRAE Administration Ondansetron HCl 4 mg 12/21/16 17:03 12/21/16 23:57 Zofran Inj IVP 4 mg Q4 PRN Administration Nausea/Vomiting Pantoprazole Sodium 40 mg 12/16/16 10:00 12/22/16 11:21 Protonix Inj IVP 40 mg DAILY DESIRAE Administration Phenol/Menthol 0 ml 12/18/16 08:13 12/18/16 10:21 Phenaseptic 1.4% Throat [place] MT 1 spr Q2H PRN Administration Sore Throat Rosuvastatin Calcium 5 mg 12/16/16 22:00 12/21/16 21:35 Crestor PO Not Given HS DESIRAE - Patient Studies Lab Studies: Microbiology Studies 12/21/16 16:25 Gram Stain - Final Abdomen Lab Studies 12/22/16 12/22/16 12/21/16 Range/Units 06:02 06:02 13:34 WBC 5.2 (4.8-10.8) K/uL RBC 3.83 (3.80-5.20) Mil/uL Hgb 10.6 L (11.0-16.0) g/dL Hct 31.9 L (34.0-47.0) % MCV 83.2 (81.0-99.0) fL MCH 27.6 (27.0-31.0) pg MCHC 33.2 (33.0-37.0) g/dL RDW 15.3 H (11.5-14.5) % Plt Count 165 (130-400) K/uL MPV 7.3 (7.2-11.7) fL Neut % (Auto) 85.7 H (50.0-75.0) % Lymph % (Auto) 7.6 L (20.0-40.0) % Divide % (Auto) 6.5 (0.0-10.0) % Eos % (Auto) 0.1 (0.0-4.0) % Baso % (Auto) 0.1 (0.0-2.0) % Neut # 4.5 (1.8-7.0) K/uL Lymph # 0.4 L (1.0-4.3) K/uL Divide # 0.3 (0.0-0.8) K/uL Eos # 0.0 (0.0-0.7) K/uL Baso # 0.0 (0.0-0.2) K/uL Neutrophils % (Manual) 56 (50-75) % Band Neutrophils % 31 H* (0-2) % Lymphocytes % (Manual) 8 L (20-40) % Monocytes % (Manual) 5 (0-10) % Platelet Estimate Normal (NORMAL) Hypochromasia (manual) Slight Poikilocytosis (manual Slight Anisocytosis (manual) Slight Macrocytosis (manual) Slight Sodium 129 L (132-148) mmol/L Potassium 4.3 (3.6-5.2) mmol/L Chloride 99 (98-107) mmol/L Carbon Dioxide 23 (22-30) mmol/L Anion Gap 11 (10-20) BUN 14 (7-17) mg/dL Creatinine 1.0 (0.7-1.2) MG/DL Est GFR ( Amer) > 60 Est GFR (Non-Af Amer) 53 Random Glucose 150 H (65-105) mg/dL Calcium 7.3 L (8.6-10.4) mg/dl Total Bilirubin 0.6 (0.2-1.3) mg/dL AST 12 L (14-36) U/L ALT 22 (9-52) U/L Alkaline Phosphatase 38 D (38-126) U/L Total Protein 5.0 L (6.3-8.3) g/dL Albumin 2.3 L (3.5-5.0) g/dL Globulin 2.7 (2.2-3.9) gm/dL Albumin/Globulin Ratio 0.9 L (1.0-2.1) Blood Type B NEGATIVE Antibody Screen Positive Antibody Identification Anti D Laboratory Results - last 24 hr 12/21/16 12/22/16 12/22/16 13:34 06:02 06:02 WBC 5.2 RBC 3.83 Hgb 10.6 L Hct 31.9 L MCV 83.2 MCH 27.6 MCHC 33.2 RDW 15.3 H Plt Count 165 MPV 7.3 Neut % (Auto) 85.7 H Lymph % (Auto) 7.6 L Divide % (Auto) 6.5 Eos % (Auto) 0.1 Baso % (Auto) 0.1 Neut # 4.5 Lymph # 0.4 L Divide # 0.3 Eos # 0.0 Baso # 0.0 Neutrophils % (Manual) 56 Band Neutrophils % 31 H* Lymphocytes % (Manual) 8 L Monocytes % (Manual) 5 Platelet Estimate Normal Hypochromasia (manual) Slight Poikilocytosis (manual Slight Anisocytosis (manual) Slight Macrocytosis (manual) Slight Sodium 129 L Potassium 4.3 Chloride 99 Carbon Dioxide 23 Anion Gap 11 BUN 14 Creatinine 1.0 Est GFR ( Amer) > 60 Est GFR (Non-Af Amer) 53 Random Glucose 150 H Calcium 7.3 L Total Bilirubin 0.6 AST 12 L ALT 22 Alkaline Phosphatase 38 D Total Protein 5.0 L Albumin 2.3 L Globulin 2.7 Albumin/Globulin Ratio 0.9 L Blood Type B NEGATIVE Antibody Screen Positive Antibody Identification Anti D Critical Care Progress Note - Nutrition Nutrition: Nutrition Category Date Time Status NPO Diet [DIET] Diets 12/20/16 Breakfast Active Attending/Attestation - Attestation I have personally seen and examined this patient.: Yes I have fully participated in the care of the patient.: Yes I have reviewed all pertinent clinical information: Yes Notes (Text): 12/22/16 14:00 Patient seen and examined. Case discussed with house staff in the morning rounds. s/p exl-lap w. small bowel resection and primary anasotmosis, POD#1 Stable for transfer to floor Continue antibiotics and IV fluids
[2016-12-22] MEDS: diltiaZEM 300 mg/24 Hours CD Cap PO SCH (11:17)
[2016-12-22] MEDS: Neomycin/Polymyxin/Hydrocort Otic Soln BOTTLE AU SCH ×5 (11:18→21:28)
[2016-12-22] MEDS ORDERED: Ophthalmic Irrigation, Soln OU ONE (13:02)
--- NOTE | 2016-12-22 13:19 | CARD ---
APPROVED REPORT EKG Measurement Heart [id number] <Conclusion> Normal sinus rhythm Moderate voltage criteria for LVH, may be normal variant Borderline ECG
--- NOTE | 2016-12-22 16:45 | PN ---
DATE: 12/22/2016 SUBJECTIVE: The patient underwent yesterday exploratory laparotomy, lysis of adhesions, small bowel resection with anastomosis. She is currently in ICU. Denies any chest pain. No reported ventricular arrhythmia on the monitor. No reported hypotension. PHYSICAL EXAMINATION: VITAL SIGNS: Blood pressure 131/60, heart rate 109, respirations 17, temperature 98.8. HEENT: Pale conjunctivae. CHEST: Poor air entry bilaterally. HEART: S1, S2 regular. EXTREMITIES: Venodyne pump was placed on both lower extremities. LABORATORIES: Hemoglobin and hematocrit 10.6 and 31.9. White count and platelet count are within no rmal limits. Today's SMA-7: Sodium 129, potassium 4.3, chloride 99, CO2 23, glucose 150, BUN 14, cr eatinine 1.0. ASSESSMENT: 1. Status post small bowel resection for a distal small-bowel obstruction. 2. History of deep venous thrombosis and pulmonary embolism some 5 years ago according to the patien clifford's daughter. 3. Consider bilateral pneumonia. 4. Hypertension. RECOMMENDATIONS: Resume oral medications once oral intake is allowed. In the meantime, continue Dil audid 0.5 mg intravenously q. 4 hours p.r.n. for pain. Continue albuterol nebulizer. Subcutaneous he lashaun was started at 5000 units twice a day. Continue Nitro paste 1 inch q. 6 hours and continue D5 normal saline with potassium replacement infusion. Continue Protonix at 40 mg intravenously daily. I would request postoperative 12-lead EKG. The case was discussed with the patient's family at the [facility]. Eben Rojas MD cc: [id number] TT: 12/22/2016 16:44:50 Confirmation # [id number] Dictation # [id number]
[2016-12-22] MEDS: Potassium Ch 20mEq in D5-1/2NS 1,000 ML IV SCH (17:58)
[2016-12-23] MEDS: Nitroglycerin 2% Ointment Foilpak UD TOP SCH ×5 (01:00→17:12)
[2016-12-23] MEDS: Acetylcysteine 20% Inhal Soln (4ml) INH SCH ×4 (01:09→19:47)
[2016-12-23] MEDS: Albuterol-Ipratrop 3 mg / 0.5 (3 ml) UD INH SCH ×4 (01:09→19:48)
[2016-12-23] MEDS: HYDROmorphone 0.5 mg/0.5 ml ISec IVP PRN ×3 (04:23→15:31)
[2016-12-23] MEDS: Potassium Ch 20mEq in D5-1/2NS 1,000 ML IV SCH ×3 (04:30→17:17)
[2016-12-23] MEDS: Ciprofloxacin 400mg/200ml D5W 400 MG/200 ML BAG IVPB SCH ×2 (04:30→17:12)
[2016-12-23] MEDS: metroNIDAZOLE IV 500 mg/100 ml 500 MG/100 ML BAG IVPB SCH ×3 (06:15→21:00)
[2016-12-23 06:40] LABS: BASO % 0.2 % (0.0-2.0); EOS % 0.1 % (0.0-4.0); HEMATOCRIT 28.3 % (34.0-47.0); LYMPH # 0.3 K/uL (1.0-4.3); LYMPH % 5.2 % (20.0-40.0); MEAN CELL VOLUME 82.7 fL (81.0-99.0); MEAN CORPUSCULAR HGB CONC 32.7 g/dL (33.0-37.0); MEAN PLATELET VOLUME 7.5 fL (7.2-11.7); MONO # 0.3 K/uL (0.0-0.8); MONO % 4.8 % (0.0-10.0); PLATELET COUNT 139 K/uL (130-400); RED CELL DISTRIBUTION WIDTH 15.1 % (11.5-14.5); WHITE BLOOD COUNT 5.9 K/uL (4.8-10.8)
[2016-12-23 06:50] LABS: CHLORIDE 98 mmol/L (98-107)
[2016-12-23 06:51] LABS: POTASSIUM 4.2 mmol/L (3.6-5.2); SODIUM 128 mmol/L (132-148)
[2016-12-23 06:53] LABS: ALB/GLOB RATIO 0.7 (1.0-2.1); ALKALINE PHOSPHATASE 38 U/L (38-126); ALT/SGPT 24 U/L (9-52); AST/SGOT 12 U/L (14-36); BILIRUBIN,TOTAL < 0.1 mg/dL (0.2-1.3); BLOOD UREA NITROGEN 11 mg/dL (7-17); CARBON DIOXIDE 25 mmol/L (22-30); GFR AFRICAN-AMERICAN > 60; TOTAL PROTEIN 4.8 g/dL (6.3-8.3)
[2016-12-23 06:54] LABS: CALCIUM 7.8 mg/dl (8.6-10.4); GLUCOSE,RANDOM 157 mg/dL (65-105); MAGNESIUM 1.9 mg/dL (1.6-2.3); PHOSPHOROUS 2.3 mg/dL (2.5-4.5)
[2016-12-23 09:11] LABS: EOSINOPHIL 1 % (0-4); NEUTROPHIL 69 % (50-75); TOTAL CELLS COUNTED 100
[2016-12-23 09:12] LABS: LARGE PLATELETS PRESENT
[2016-12-23 09:13] LABS: SPHEROCYTES SLIGHT
[2016-12-23] MEDS: diltiaZEM 300 mg/24 Hours CD Cap PO SCH (10:37)
[2016-12-23] MEDS: Neomycin/Polymyxin/Hydrocort Otic Soln BOTTLE AU SCH ×4 (10:38→21:42)
[2016-12-23] MEDS: Benzocaine/Menthol (Cepacol) Lozenge MT PRN (12:36)
[2016-12-23] MEDS: Phenol Topical 1.4% Throat Spray (180 ml) MT PRN (14:50)
--- NOTE | 2016-12-23 15:05 | PN ---
DATE: 12/23/2016 SUBJECTIVE: The patient denies any chest pain. She is still on nasogastric tube suction. No report ed ventricular arrhythmia. PHYSICAL EXAMINATION: VITAL SIGNS: Blood pressure 119/58, heart rate 90, temperature 99.9, respirations 20. HEENT: Pale conjunctivae. CHEST: Bibasilar rhonchi. HEART: S1, S2 regular. EXTREMITIES: No pedal edema. LABORATORIES: Hemoglobin and hematocrit 9.3 and 28.3, white count and platelet count are within norm al limits. Today's SMA-7: Sodium 128, potassium 4.2, chloride 98, CO2 of 25, glucose 157, BUN 11, c reatinine 0.8. No EKG has been done postoperatively yet. ASSESSMENT: 1. Status post exploratory laparotomy and small bowel resection for distal small-bowel obstruction. 2. History of deep venous thrombosis and pulmonary embolus 5 years ago. 3. Hypertension. 4. Bilateral pneumonia. RECOMMENDATIONS: Cozaar was resumed today at 100 mg daily. Continue IV Dilaudid 0.5 mg intravenous q. 4 hours p.r.n., Cardizem-CD was resumed at 300 mg daily. Continue subcutaneous heparin 5000 units twice a day as well as Venodyne pump for both lower extremities, continue p.r.n. IV Zofran. I did r eorder stat 12-lead EKG. Eben Rojas MD cc: [id number] TT: 12/23/2016 15:04:09 Confirmation # [id number] Dictation # [id number] dora
--- NOTE | 2016-12-23 15:17 | CP.PCM.PN ---
Subjective - Date & Time of Evaluation Date of Evaluation: 12/22/16 Time of Evaluation: 10:41 - Subjective Subjective: Pt seen and examined at bedside. Pt is POD#1 Ex-Lap w. small bowel resection and primary anastomosis. NGT in place, draining 20cc in last 12 hours. Pt remains NPO. Spoke with son in room and asked him to remind pt to continue incentive spirometry. Objective - Vital Signs/Intake and Output Vital Signs (last 24 hours): Temp Pulse Resp BP Pulse Ox 99.9 F H 90 20 119/58 L 98 12/23/16 12:00 12/23/16 12:00 12/23/16 12:00 12/23/16 11:58 12/23/16 12:00 Intake and Output: 12/23/16 12/23/16 06:59 18:59 Intake Total 1425 725 Output Total 665 155 Balance 760 570 - Medications Medications: Current Medications Acetaminophen (Tylenol 325 Mg Supp) 325 mg [place] Q6 PRN PRN Reason: Fever >100.4 F Acetylcysteine (Acetylcysteine 20%) 4 ml INH RQ6 [facility] Last Admin: 12/23/16 14:00 Dose: 4 ml Albuterol/Ipratropium (Duoneb 3 Mg/0.5 Mg (3 Ml) Ud) 3 ml INH RQ6 [facility] Last Admin: 12/23/16 14:00 Dose: 3 ml Benzocaine/Menthol (Cepacol Sore Throat) 1 jacquelyn MT Q2H PRN PRN Reason: Sore Throat Last Admin: 12/23/16 12:36 Dose: 1 jacquelyn Carbidopa/Levodopa (Sinemet) 1 tab PO TID [facility] Last Admin: 12/23/16 13:16 Dose: 1 tab Diltiazem HCl (Cardizem Cd) 300 mg PO DAILY [facility] Last Admin: 12/23/16 10:37 Dose: 300 mg Emollient Ointment (Vaseline Oint) 5 gm TOP BID PRN PRN Reason: Dry skin Last Admin: 12/21/16 01:28 Dose: 5 gm Heparin Sodium (Porcine) (Heparin) 5,000 units SC Q12 [facility] Last Admin: 12/23/16 10:36 Dose: 5,000 units Hydromorphone HCl (Dilaudid) 0.5 mg IVP Q4H PRN PRN Reason: Pain, moderate (4-7) Last Admin: 12/23/16 10:58 Dose: 0.5 mg Ciprofloxacin (Cipro 400mg/200ml Dsw) 400 mg in 200 mls @ 133 mls/hr IVPB Q12H [facility] Last Admin: 12/23/16 04:30 Dose: 133 mls/hr Metronidazole (Flagyl) 500 mg in 100 mls @ 100 mls/hr IVPB Q8 [facility] Last Admin: 12/23/16 13:03 Dose: 100 mls/hr Potassium Chloride/Dextrose/Sod Cl (Potassium Chl 20 Meq In D5-1/2ns) 1,000 mls @ 125 mls/hr IV .Q8H [facility] Last Admin: 12/23/16 10:37 Dose: Not Given Losartan Potassium (Cozaar) 100 mg PO DAILY [facility] Last Admin: 12/23/16 10:37 Dose: 100 mg Neomycin/Polymyxin/Hydrocortisone (Cortisporin Otic Soln) 2 drop AU QID [facility] Last Admin: 12/23/16 13:11 Dose: 2 drop Nitroglycerin (Nitro-Bid 2% Oint) 1 ea TOP Q6 [facility] Last Admin: 12/23/16 12:27 Dose: 1 ea Ondansetron HCl (Zofran Inj) 4 mg IVP Q4 PRN PRN Reason: Nausea/Vomiting Last Admin: 12/21/16 23:57 Dose: 4 mg Pantoprazole Sodium (Protonix Inj) 40 mg IVP DAILY [facility] Last Admin: 12/23/16 10:37 Dose: 40 mg Phenol/Menthol (Phenaseptic 1.4% Throat [place]) 0 ml MT Q2H PRN PRN Reason: Sore Throat Last Admin: 12/23/16 14:50 Dose: 1 spr Rosuvastatin Calcium (Crestor) 5 mg PO HS [facility] Last Admin: 12/22/16 22:04 Dose: Not Given - Labs Labs: 12/23/16 06:31 12/23/16 06:31 PT 12.6 SECONDS (9.7-12.2) H 12/21/16 11:39 INR 1.1 12/21/16 11:39 APTT 25 SECONDS (21-34) 12/21/16 11:39 - Constitutional Appears: No Acute Distress, Chronically Ill - Head Exam Head Exam: ATRAUMATIC, NORMAL INSPECTION, NORMOCEPHALIC - Eye Exam Eye Exam: EOMI, Normal appearance, PERRL Pupil Exam: NORMAL ACCOMODATION, PERRL - Respiratory Exam Respiratory Exam: Decreased Breath Sounds, Rales, Rhonchi - Cardiovascular Exam Cardiovascular Exam: REGULAR RHYTHM, +S1, +S2. absent: Murmur - GI/Abdominal Exam GI & Abdominal Exam: Soft, Normal Bowel Sounds. absent: Tenderness Assessment and Plan (1) Abdominal pain Status: Acute (2) Small bowel obstruction Status: Acute (3) Diabetes mellitus Status: Chronic (4) Hypertension Status: Chronic
--- NOTE | 2016-12-23 17:49 | CP.PCM.PN ---
Subjective - Date & Time of Evaluation Date of Evaluation: 12/23/16 Time of Evaluation: 10:44 - Subjective Subjective: Pt seen and examined, complaining of some irritation in throat on NG tube with low gumco suction Objective - Vital Signs/Intake and Output Vital Signs (last 24 hours): Temp Pulse Resp BP Pulse Ox 98 F 90 20 119/58 L 98 12/23/16 16:00 12/23/16 12:00 12/23/16 12:00 12/23/16 11:58 12/23/16 12:00 Intake and Output: 12/23/16 12/23/16 06:59 18:59 Intake Total 1425 1325 Output Total 665 305 Balance 760 1020 - Medications Medications: Current Medications Acetaminophen (Tylenol 325 Mg Supp) 325 mg [place] Q6 PRN PRN Reason: Fever >100.4 F Acetylcysteine (Acetylcysteine 20%) 4 ml INH RQ6 [facility] Last Admin: 12/23/16 14:00 Dose: 4 ml Albuterol/Ipratropium (Duoneb 3 Mg/0.5 Mg (3 Ml) Ud) 3 ml INH RQ6 [facility] Last Admin: 12/23/16 14:00 Dose: 3 ml Benzocaine/Menthol (Cepacol Sore Throat) 1 jacquelyn MT Q2H PRN PRN Reason: Sore Throat Last Admin: 12/23/16 12:36 Dose: 1 jacquelyn Carbidopa/Levodopa (Sinemet) 1 tab PO TID [facility] Last Admin: 12/23/16 17:14 Dose: 1 tab Diltiazem HCl (Cardizem Cd) 300 mg PO DAILY [facility] Last Admin: 12/23/16 10:37 Dose: 300 mg Emollient Ointment (Vaseline Oint) 5 gm TOP BID PRN PRN Reason: Dry skin Last Admin: 12/21/16 01:28 Dose: 5 gm Heparin Sodium (Porcine) (Heparin) 5,000 units SC Q12 [facility] Last Admin: 12/23/16 10:36 Dose: 5,000 units Hydromorphone HCl (Dilaudid) 0.5 mg IVP Q4H PRN PRN Reason: Pain, moderate (4-7) Last Admin: 12/23/16 15:31 Dose: 0.5 mg Ciprofloxacin (Cipro 400mg/200ml Dsw) 400 mg in 200 mls @ 133 mls/hr IVPB Q12H [facility] Last Admin: 12/23/16 17:12 Dose: 133 mls/hr Metronidazole (Flagyl) 500 mg in 100 mls @ 100 mls/hr IVPB Q8 [facility] Last Admin: 12/23/16 13:03 Dose: 100 mls/hr Potassium Chloride/Dextrose/Sod Cl (Potassium Chl 20 Meq In D5-1/2ns) 1,000 mls @ 125 mls/hr IV .Q8H [facility] Last Admin: 12/23/16 17:17 Dose: 125 mls/hr Losartan Potassium (Cozaar) 100 mg PO DAILY [facility] Last Admin: 12/23/16 10:37 Dose: 100 mg Neomycin/Polymyxin/Hydrocortisone (Cortisporin Otic Soln) 2 drop AU QID [facility] Last Admin: 12/23/16 17:12 Dose: 2 drop Nitroglycerin (Nitro-Bid 2% Oint) 1 ea TOP Q6 [facility] Last Admin: 12/23/16 17:12 Dose: 1 ea Ondansetron HCl (Zofran Inj) 4 mg IVP Q4 PRN PRN Reason: Nausea/Vomiting Last Admin: 12/21/16 23:57 Dose: 4 mg Pantoprazole Sodium (Protonix Inj) 40 mg IVP DAILY [facility] Last Admin: 12/23/16 10:37 Dose: 40 mg Phenol/Menthol (Phenaseptic 1.4% Throat [place]) 0 ml MT Q2H PRN PRN Reason: Sore Throat Last Admin: 12/23/16 14:50 Dose: 1 spr Rosuvastatin Calcium (Crestor) 5 mg PO HS [facility] Last Admin: 12/22/16 22:04 Dose: Not Given - Labs Labs: 12/23/16 06:31 12/23/16 06:31 PT 12.6 SECONDS (9.7-12.2) H 12/21/16 11:39 INR 1.1 12/21/16 11:39 APTT 25 SECONDS (21-34) 12/21/16 11:39 - Constitutional Appears: No Acute Distress - Head Exam Head Exam: ATRAUMATIC, NORMAL INSPECTION, NORMOCEPHALIC - Eye Exam Eye Exam: EOMI, Normal appearance, PERRL Pupil Exam: NORMAL ACCOMODATION, PERRL - Respiratory Exam Respiratory Exam: Clear to Ausculation Bilateral, NORMAL BREATHING PATTERN - Cardiovascular Exam Cardiovascular Exam: REGULAR RHYTHM, +S1, +S2. absent: Murmur Assessment and Plan (1) Abdominal pain Status: Acute (2) Small bowel obstruction Status: Acute (3) Diabetes mellitus Status: Chronic (4) Hypertension Status: Chronic
--- NOTE | 2016-12-23 21:21 | CP.PCM.PN ---
Subjective - Date & Time of Evaluation Date of Evaluation: 12/23/16 Time of Evaluation: 07:00 - Subjective Subjective: GENERAL SURGERY PROGRESS NOTE FOR DR. CUENCA Patient seen and examined at bedside. She reports occasional abdominal pain. She still has not passed flatus or had a BM yet since surgery. She denies nausea or vomiting. She is awaiting bed on the floor. NG tube had 300cc output over past 24 hours. Objective - Vital Signs/Intake and Output Vital Signs (last 24 hours): Temp Pulse Resp BP Pulse Ox 98 F 87 15 162/40 H 99 12/23/16 16:00 12/23/16 20:00 12/23/16 20:00 12/23/16 19:58 12/23/16 20:00 Intake and Output: 12/23/16 12/24/16 18:59 06:59 Intake Total 1450 125 Output Total 335 100 Balance 1115 25 - Medications Medications: Current Medications Acetaminophen (Tylenol 325 Mg Supp) 325 mg [place] Q6 PRN PRN Reason: Fever >100.4 F Acetylcysteine (Acetylcysteine 20%) 4 ml INH RQ6 [facility] Last Admin: 12/23/16 19:47 Dose: 4 ml Albuterol/Ipratropium (Duoneb 3 Mg/0.5 Mg (3 Ml) Ud) 3 ml INH RQ6 [facility] Last Admin: 12/23/16 19:48 Dose: 3 ml Benzocaine/Menthol (Cepacol Sore Throat) 1 jacquelyn MT Q2H PRN PRN Reason: Sore Throat Last Admin: 12/23/16 12:36 Dose: 1 jacquelyn Carbidopa/Levodopa (Sinemet) 1 tab PO TID [facility] Last Admin: 12/23/16 17:14 Dose: 1 tab Diltiazem HCl (Cardizem Cd) 300 mg PO DAILY [facility] Last Admin: 12/23/16 10:37 Dose: 300 mg Emollient Ointment (Vaseline Oint) 5 gm TOP BID PRN PRN Reason: Dry skin Last Admin: 12/21/16 01:28 Dose: 5 gm Heparin Sodium (Porcine) (Heparin) 5,000 units SC Q12 [facility] Last Admin: 12/23/16 10:36 Dose: 5,000 units Hydromorphone HCl (Dilaudid) 0.5 mg IVP Q4H PRN PRN Reason: Pain, moderate (4-7) Last Admin: 12/23/16 15:31 Dose: 0.5 mg Ciprofloxacin (Cipro 400mg/200ml Dsw) 400 mg in 200 mls @ 133 mls/hr IVPB Q12H [facility] Last Admin: 12/23/16 17:12 Dose: 133 mls/hr Metronidazole (Flagyl) 500 mg in 100 mls @ 100 mls/hr IVPB Q8 [facility] Last Admin: 12/23/16 13:03 Dose: 100 mls/hr Potassium Chloride/Dextrose/Sod Cl (Potassium Chl 20 Meq In D5-1/2ns) 1,000 mls @ 125 mls/hr IV .Q8H [facility] Last Admin: 12/23/16 17:17 Dose: 125 mls/hr Losartan Potassium (Cozaar) 100 mg PO DAILY [facility] Last Admin: 12/23/16 10:37 Dose: 100 mg Neomycin/Polymyxin/Hydrocortisone (Cortisporin Otic Soln) 2 drop AU QID [facility] Last Admin: 12/23/16 17:12 Dose: 2 drop Nitroglycerin (Nitro-Bid 2% Oint) 1 ea TOP Q6 [facility] Last Admin: 12/23/16 17:12 Dose: 1 ea Ondansetron HCl (Zofran Inj) 4 mg IVP Q4 PRN PRN Reason: Nausea/Vomiting Last Admin: 12/21/16 23:57 Dose: 4 mg Pantoprazole Sodium (Protonix Inj) 40 mg IVP DAILY [facility] Last Admin: 12/23/16 10:37 Dose: 40 mg Phenol/Menthol (Phenaseptic 1.4% Throat [place]) 0 ml MT Q2H PRN PRN Reason: Sore Throat Last Admin: 12/23/16 14:50 Dose: 1 spr Rosuvastatin Calcium (Crestor) 5 mg PO HS [facility] Last Admin: 12/22/16 22:04 Dose: Not Given - Labs Labs: 12/23/16 06:31 12/23/16 06:31 PT 12.6 SECONDS (9.7-12.2) H 12/21/16 11:39 INR 1.1 12/21/16 11:39 APTT 25 SECONDS (21-34) 12/21/16 11:39 - Constitutional Appears: Non-toxic, No Acute Distress - Head Exam Head Exam: ATRAUMATIC, NORMAL INSPECTION - Eye Exam Eye Exam: EOMI, Normal appearance - ENT Exam Additional comments: NG tube in place - Respiratory Exam Respiratory Exam: NORMAL BREATHING PATTERN. absent: Respiratory Distress - Cardiovascular Exam Cardiovascular Exam: +S1, +S2 - GI/Abdominal Exam GI & Abdominal Exam: Soft. absent: Distended, Firm, Guarding, Rigid, Tenderness , Rebound Additional comments: Dressing clean/dry/intact - Neurological Exam Neurological Exam: Alert, Awake, Oriented x3 - Psychiatric Exam Psychiatric exam: Normal Affect, Normal Mood - Skin Skin Exam: Normal Color, Warm Assessment and Plan - Assessment and Plan (Free Text) Assessment: 85yo F with PMHx of CHF, COPD, PE, s/p open cholecystectomy who presented with abdominal pain and was found to have partial SBO secondary to bezoar, s/p exploratory laparotomy with small bowel resection and primary anastomosis, POD#2 - Tmax 100.3 overnight, currently Afebrile, VSS - Continue NG tube to suction - No BM or flatus yet, will monitor for bowel function - Encouraged ambulation - Will continue NG tube until has return of bowel function - PT ordered yesterday - Discussed plan with Dr. Jerome Reed PGY-2
[2016-12-24] MEDS: Albuterol-Ipratrop 3 mg / 0.5 (3 ml) UD INH SCH ×4 (01:15→20:31)
[2016-12-24] MEDS: Acetylcysteine 20% Inhal Soln (4ml) INH SCH ×4 (01:16→20:31)
[2016-12-24] MEDS: Potassium Ch 20mEq in D5-1/2NS 1,000 ML IV SCH ×2 (02:30→11:00)
[2016-12-24] MEDS: metroNIDAZOLE IV 500 mg/100 ml 500 MG/100 ML BAG IVPB SCH ×3 (05:00→22:33)
[2016-12-24] MEDS: Ciprofloxacin 400mg/200ml D5W 400 MG/200 ML BAG IVPB SCH ×2 (06:00→17:29)
[2016-12-24] MEDS: Nitroglycerin 2% Ointment Foilpak UD TOP SCH ×5 (06:02→23:53)
--- NOTE | 2016-12-24 07:45 | CP.PCM.PN ---
Subjective - Date & Time of Evaluation Date of Evaluation: 12/24/16 Time of Evaluation: 07:00 - Subjective Subjective: GENERAL SURGERY PROGRESS NOTE FOR DR. CUENCA Patient seen and examined with family at bedside. She is OOB to chair. She reports occasional abdominal pain on and off. She still has not had a BM yet since surgery. She is unsure if she has passed flatus or not. She denies nausea or vomiting. She is awaiting bed on the floor. 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 I stressed importance of OOB and ambulation with patient, family, and nurse. PT is ordered. Objective - Vital Signs/Intake and Output Vital Signs (last 24 hours): Temp Pulse Resp BP Pulse Ox 99.7 F H 84 15 115/50 L 100 12/24/16 04:00 12/24/16 07:00 12/24/16 07:00 12/24/16 06:58 12/24/16 07:00 Intake and Output: 12/24/16 12/24/16 06:59 18:59 Intake Total 1605 Output Total 1250 Balance 355 - Medications Medications: Current Medications Acetaminophen (Tylenol 325 Mg Supp) 325 mg [place] Q6 PRN PRN Reason: Fever >100.4 F Acetylcysteine (Acetylcysteine 20%) 4 ml INH RQ6 [facility] Last Admin: 12/24/16 01:16 Dose: 4 ml Albuterol/Ipratropium (Duoneb 3 Mg/0.5 Mg (3 Ml) Ud) 3 ml INH RQ6 [facility] Last Admin: 12/24/16 01:15 Dose: 3 ml Benzocaine/Menthol (Cepacol Sore Throat) 1 jacquelyn MT Q2H PRN PRN Reason: Sore Throat Last Admin: 12/23/16 12:36 Dose: 1 jacquelyn Carbidopa/Levodopa (Sinemet) 1 tab PO TID [facility] Last Admin: 12/23/16 17:14 Dose: 1 tab Diltiazem HCl (Cardizem Cd) 300 mg PO DAILY [facility] Last Admin: 12/23/16 10:37 Dose: 300 mg Emollient Ointment (Vaseline Oint) 5 gm TOP BID PRN PRN Reason: Dry skin Last Admin: 12/21/16 01:28 Dose: 5 gm Heparin Sodium (Porcine) (Heparin) 5,000 units SC Q12 [facility] Last Admin: 12/23/16 21:41 Dose: 5,000 units Ciprofloxacin (Cipro 400mg/200ml Dsw) 400 mg in 200 mls @ 133 mls/hr IVPB Q12H [facility] Last Admin: 12/24/16 06:00 Dose: 133 mls/hr Metronidazole (Flagyl) 500 mg in 100 mls @ 100 mls/hr IVPB Q8 [facility] Last Admin: 12/24/16 05:00 Dose: 100 mls/hr Potassium Chloride/Dextrose/Sod Cl (Potassium Chl 20 Meq In D5-1/2ns) 1,000 mls @ 125 mls/hr IV .Q8H [facility] Last Admin: 12/24/16 02:30 Dose: 125 mls/hr Losartan Potassium (Cozaar) 100 mg PO DAILY [facility] Last Admin: 12/23/16 10:37 Dose: 100 mg Morphine Sulfate (Morphine) 2 mg IVP Q4 PRN PRN Reason: Pain, moderate (4-7) Neomycin/Polymyxin/Hydrocortisone (Cortisporin Otic Soln) 2 drop AU QID [facility] Last Admin: 12/23/16 21:42 Dose: 2 drop Nitroglycerin (Nitro-Bid 2% Oint) 1 ea TOP Q6 [facility] Last Admin: 12/24/16 06:02 Dose: 1 ea Ondansetron HCl (Zofran Inj) 4 mg IVP Q4 PRN PRN Reason: Nausea/Vomiting Last Admin: 12/21/16 23:57 Dose: 4 mg Pantoprazole Sodium (Protonix Inj) 40 mg IVP DAILY [facility] Last Admin: 12/23/16 10:37 Dose: 40 mg Phenol/Menthol (Phenaseptic 1.4% Throat [place]) 0 ml MT Q2H PRN PRN Reason: Sore Throat Last Admin: 12/23/16 14:50 Dose: 1 spr Rosuvastatin Calcium (Crestor) 5 mg PO HS [facility] Last Admin: 12/23/16 21:41 Dose: 5 mg - Labs Labs: 12/23/16 06:31 12/23/16 06:31 PT 12.6 SECONDS (9.7-12.2) H 12/21/16 11:39 INR 1.1 12/21/16 11:39 APTT 25 SECONDS (21-34) 12/21/16 11:39 - Constitutional Appears: Non-toxic, No Acute Distress - Head Exam Head Exam: ATRAUMATIC, NORMAL INSPECTION - Eye Exam Eye Exam: EOMI, Normal appearance - Respiratory Exam Respiratory Exam: NORMAL BREATHING PATTERN. absent: Respiratory Distress - Cardiovascular Exam Cardiovascular Exam: +S1, +S2 - GI/Abdominal Exam GI & Abdominal Exam: Soft, Tenderness (mild tenderness bilateral lower abdomen) . absent: Distended, Firm, Guarding, Rigid, Rebound Additional comments: NG tube in place on suction with 200cc output over manufacturing shift supervisor and 300cc output over day shift = 500cc/24 hours Dressing clean/dry/intact - Neurological Exam Neurological Exam: Alert, Awake, Oriented x3 - Psychiatric Exam Psychiatric exam: Normal Affect, Normal Mood - Skin Skin Exam: Dry, Normal Color, Warm Assessment and Plan - Assessment and Plan (Free Text) Assessment: 85yo F with PMHx of CHF, COPD, PE, s/p open cholecystectomy who presented with abdominal pain and was found to have partial SBO secondary to bezoar, s/p exploratory laparotomy with small bowel resection and primary anastomosis, POD#3 - Afebrile, VSS - Continue NG tube to suction - NG tube with 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 Jerome Reed PGY-2
--- NOTE | 2016-12-24 09:33 | CP.PCM.PN ---
Subjective - Date & Time of Evaluation Date of Evaluation: 12/24/16 Time of Evaluation: 10:58 - Subjective Subjective: Patient seen and examined with family at bedside. She is OOB to chair. She reports occasional abdominal pain on and off. She still has not had a BM yet since surgery. She is unsure if she has passed flatus or not. She denies nausea or vomiting. She is awaiting bed on the floor. 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 I stressed importance of OOB and ambulation with patient, family, and nurse. PT is ordered. Objective - Vital Signs/Intake and Output Vital Signs (last 24 hours): Temp Pulse Resp BP Pulse Ox 98 F 90 13 123/60 100 12/24/16 08:00 12/24/16 07:58 12/24/16 07:58 12/24/16 07:58 12/24/16 07:58 Intake and Output: 12/24/16 12/24/16 06:59 18:59 Intake Total 1605 Output Total 1250 Balance 355 - Medications Medications: Current Medications Acetaminophen (Tylenol 325 Mg Supp) 325 mg [place] Q6 PRN PRN Reason: Fever >100.4 F Acetylcysteine (Acetylcysteine 20%) 4 ml INH RQ6 [facility] Last Admin: 12/24/16 08:36 Dose: 4 ml Albuterol/Ipratropium (Duoneb 3 Mg/0.5 Mg (3 Ml) Ud) 3 ml INH RQ6 [facility] Last Admin: 12/24/16 08:36 Dose: 3 ml Benzocaine/Menthol (Cepacol Sore Throat) 1 jacquelyn MT Q2H PRN PRN Reason: Sore Throat Last Admin: 12/23/16 12:36 Dose: 1 jacquelyn Carbidopa/Levodopa (Sinemet) 1 tab PO TID [facility] Last Admin: 12/23/16 17:14 Dose: 1 tab Diltiazem HCl (Cardizem Cd) 300 mg PO DAILY [facility] Last Admin: 12/23/16 10:37 Dose: 300 mg Emollient Ointment (Vaseline Oint) 5 gm TOP BID PRN PRN Reason: Dry skin Last Admin: 12/21/16 01:28 Dose: 5 gm Heparin Sodium (Porcine) (Heparin) 5,000 units SC Q12 [facility] Last Admin: 12/23/16 21:41 Dose: 5,000 units Ciprofloxacin (Cipro 400mg/200ml Dsw) 400 mg in 200 mls @ 133 mls/hr IVPB Q12H [facility] Last Admin: 12/24/16 06:00 Dose: 133 mls/hr Metronidazole (Flagyl) 500 mg in 100 mls @ 100 mls/hr IVPB Q8 [facility] Last Admin: 12/24/16 05:00 Dose: 100 mls/hr Potassium Chloride/Dextrose/Sod Cl (Potassium Chl 20 Meq In D5-1/2ns) 1,000 mls @ 125 mls/hr IV .Q8H [facility] Last Admin: 12/24/16 02:30 Dose: 125 mls/hr Losartan Potassium (Cozaar) 100 mg PO DAILY [facility] Last Admin: 12/23/16 10:37 Dose: 100 mg Morphine Sulfate (Morphine) 2 mg IVP Q4 PRN PRN Reason: Pain, moderate (4-7) Neomycin/Polymyxin/Hydrocortisone (Cortisporin Otic Soln) 2 drop AU QID [facility] Last Admin: 12/23/16 21:42 Dose: 2 drop Nitroglycerin (Nitro-Bid 2% Oint) 1 ea TOP Q6 [facility] Last Admin: 12/24/16 06:02 Dose: 1 ea Ondansetron HCl (Zofran Inj) 4 mg IVP Q4 PRN PRN Reason: Nausea/Vomiting Last Admin: 12/21/16 23:57 Dose: 4 mg Pantoprazole Sodium (Protonix Inj) 40 mg IVP DAILY [facility] Last Admin: 12/23/16 10:37 Dose: 40 mg Phenol/Menthol (Phenaseptic 1.4% Throat [place]) 0 ml MT Q2H PRN PRN Reason: Sore Throat Last Admin: 12/23/16 14:50 Dose: 1 spr Rosuvastatin Calcium (Crestor) 5 mg PO HS [facility] Last Admin: 12/23/16 21:41 Dose: 5 mg - Labs Labs: 12/23/16 06:31 12/23/16 06:31 PT 12.6 SECONDS (9.7-12.2) H 12/21/16 11:39 INR 1.1 12/21/16 11:39 APTT 25 SECONDS (21-34) 12/21/16 11:39 - Constitutional Appears: No Acute Distress - Head Exam Head Exam: ATRAUMATIC, NORMAL INSPECTION, NORMOCEPHALIC - Eye Exam Eye Exam: EOMI, Normal appearance, PERRL Pupil Exam: NORMAL ACCOMODATION, PERRL - Respiratory Exam Respiratory Exam: Clear to Ausculation Bilateral, NORMAL BREATHING PATTERN - Cardiovascular Exam Cardiovascular Exam: REGULAR RHYTHM, +S1, +S2. absent: Murmur - GI/Abdominal Exam GI & Abdominal Exam: Soft, Normal Bowel Sounds. absent: Tenderness Additional comments: POST OP ABDOMEN Assessment and Plan (1) Abdominal pain Status: Acute (2) Small bowel obstruction Status: Acute (3) Diabetes mellitus Status: Chronic (4) Hypertension Status: Chronic
[2016-12-24] MEDS: diltiaZEM 300 mg/24 Hours CD Cap PO SCH (10:33)
[2016-12-24] MEDS: Neomycin/Polymyxin/Hydrocort Otic Soln BOTTLE AU SCH ×4 (10:34→22:33)
[2016-12-24] MEDS: Phenol Topical 1.4% Throat Spray (180 ml) MT PRN (10:54)
[2016-12-24] MEDS: Dextrose 5%/0.45% NS 1,000 ML IV SCH (12:11)
--- NOTE | 2016-12-24 12:16 | RAD ---
PROCEDURE: CHEST RADIOGRAPH, 1 VIEW HISTORY: r/o chf COMPARISON: Comparison is made to 12/21/2016 FINDINGS: LUNGS: No significant interval change in the lungs since the previous exam. PLEURA: No pneumothorax or pleural fluid seen. CARDIOVASCULAR: Normal. OSSEOUS STRUCTURES: No significant abnormalities. VISUALIZED UPPER ABDOMEN: Normal. OTHER FINDINGS: NG tube seen extending to the stomach. IMPRESSION: No significant interval change since the previous study .
--- NOTE | 2016-12-24 12:54 | RAD ---
HISTORY: s/p Ex lap, small bowel resection COMPARISON: Comparison is made to the previous study dated 12/20/2016 FINDINGS: BOWEL: No evidence of bowel obstruction. Postsurgical changes are seen. BONES: Normal. OTHER FINDINGS: IVC filter seen in place. IMPRESSION: Postsurgical changes. No evidence of SBO.
[2016-12-24] MEDS ORDERED: Potassium & Sodium Phosphate PO ONE (14:19)
[2016-12-24] MEDS: Lactobacillus Acidophilus 500 MU Cap PO SCH (17:29)
--- NOTE | 2016-12-24 18:02 | PN ---
DATE: 12/24/2016 SUBJECTIVE: The patient denies any chest pain or shortness of breath, monitor reveals sinus rhythm w ith rare PVCs. PHYSICAL EXAMINATION: VITAL SIGNS: Blood pressure 102/50, heart rate 74, respiration 14, temperature 97. HEENT: Pale conjunctivae. CHEST: Clear. HEART: S1, S2 regular. EXTREMITIES: No edema. EKG done yesterday revealed normal sinus rhythm. ASSESSMENT: 1. Status post exploratory laparotomy, small bowel resection for distal small-bowel obstruction. 2. 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 3. Hypertension. 4. Bilateral pneumonia. RECOMMENDATIONS: Continue current oral lactobacillus, continue Cardizem-CD at 300 mg daily. Continu e IV Cipro at 400 mg intravenously q.12 hours, Cozaar 100 mg once a day, Crestor at 5 mg once a day, Flagyl 500 mg intravenously q. 8 hours, subcutaneous heparin 5000 units twice a day, nitro paste 1 in ch q. 6 hours, Protonix 40 mg intravenously once a day, Sinemet q. 8 hours. It is okay to holder sfer the patient to telemetry from the cardiac point. Eben Rojas MD cc: [id number] TT: 12/24/2016 18:01:34 Confirmation # [id number] Dictation # [id number] ada
[2016-12-25] MEDS: Acetylcysteine 20% Inhal Soln (4ml) INH SCH ×4 (01:52→19:41)
[2016-12-25] MEDS: Albuterol-Ipratrop 3 mg / 0.5 (3 ml) UD INH SCH ×4 (01:52→19:41)
[2016-12-25] MEDS: Dextrose 5%/0.45% NS 1,000 ML IV SCH ×2 (03:09→12:18)
[2016-12-25] MEDS: metroNIDAZOLE IV 500 mg/100 ml 500 MG/100 ML BAG IVPB SCH ×3 (05:00→21:54)
[2016-12-25] MEDS: Nitroglycerin 2% Ointment Foilpak UD TOP SCH ×3 (06:23→17:32)
[2016-12-25] MEDS: Ciprofloxacin 400mg/200ml D5W 400 MG/200 ML BAG IVPB SCH ×2 (06:30→16:37)
[2016-12-25 06:34] LABS: BASO % 0.8 % (0.0-2.0); EOS % 0.7 % (0.0-4.0); HEMATOCRIT 24.2 % (34.0-47.0); LYMPH # 0.5 K/uL (1.0-4.3); LYMPH % 9.3 % (20.0-40.0); MEAN CELL VOLUME 81.6 fL (81.0-99.0); MEAN CORPUSCULAR HGB CONC 33.1 g/dL (33.0-37.0); MEAN PLATELET VOLUME 7.2 fL (7.2-11.7); MONO # 0.3 K/uL (0.0-0.8); MONO % 5.5 % (0.0-10.0); PLATELET COUNT 142 K/uL (130-400); RED CELL DISTRIBUTION WIDTH 15.2 % (11.5-14.5); WHITE BLOOD COUNT 4.9 K/uL (4.8-10.8)
[2016-12-25 06:45] LABS: CHLORIDE 98 mmol/L (98-107); POTASSIUM 3.8 mmol/L (3.6-5.2); SODIUM 128 mmol/L (132-148)
[2016-12-25 06:47] LABS: AST/SGOT 14 U/L (14-36); BILIRUBIN,TOTAL 0.5 mg/dL (0.2-1.3); CARBON DIOXIDE 26 mmol/L (22-30); GFR AFRICAN-AMERICAN > 60
[2016-12-25 06:48] LABS: ALB/GLOB RATIO 0.8 (1.0-2.1); ALKALINE PHOSPHATASE 54 U/L (38-126); ALT/SGPT 18 U/L (9-52); BLOOD UREA NITROGEN 7 mg/dL (7-17); CALCIUM 7.4 mg/dl (8.6-10.4); GLUCOSE,RANDOM 118 mg/dL (65-105); PHOSPHOROUS 2.7 mg/dL (2.5-4.5); TOTAL PROTEIN 5.2 g/dL (6.3-8.3)
[2016-12-25 06:49] LABS: MAGNESIUM 1.7 mg/dL (1.6-2.3)
[2016-12-25 08:48] LABS: REACTIVE LYMPHOCYTES 1 % (0-0); TOTAL CELLS COUNTED 100
[2016-12-25 08:50] LABS: LARGE PLATELETS PRESENT; NEUTROPHIL 80 % (50-75)
[2016-12-25] MEDS: diltiaZEM 300 mg/24 Hours CD Cap PO SCH (10:10)
[2016-12-25] MEDS: Neomycin/Polymyxin/Hydrocort Otic Soln BOTTLE AU SCH ×4 (10:10→21:54)
[2016-12-25] MEDS: Lactobacillus Acidophilus 500 MU Cap PO SCH ×2 (10:10→17:32)
--- NOTE | 2016-12-25 12:38 | CP.PCM.PN ---
Subjective - Date & Time of Evaluation Date of Evaluation: 12/25/16 Time of Evaluation: 12:33 - Subjective Subjective: Surgery: Dr. Cano Pt seen and examined. No acute events overnight. Pain is controlled. Tolerating CLD. No N/V. +Flatus. No BM. Objective - Vital Signs/Intake and Output Vital Signs (last 24 hours): Temp Pulse Resp BP Pulse Ox 98.8 F 87 18 149/72 93 L 12/25/16 08:49 12/25/16 08:49 12/25/16 08:49 12/25/16 08:49 12/25/16 08:49 Intake and Output: 12/25/16 12/25/16 06:59 18:59 Intake Total 1360 Output Total 500 Balance 860 - Medications Medications: Current Medications Acetaminophen (Tylenol 325 Mg Supp) 325 mg [place] Q6 PRN PRN Reason: Fever >100.4 F Acetylcysteine (Acetylcysteine 20%) 4 ml INH RQ6 [facility] Last Admin: 12/25/16 07:36 Dose: 4 ml Albuterol/Ipratropium (Duoneb 3 Mg/0.5 Mg (3 Ml) Ud) 3 ml INH RQ6 [facility] Last Admin: 12/25/16 07:36 Dose: 3 ml Benzocaine/Menthol (Cepacol Sore Throat) 1 jacquelyn MT Q2H PRN PRN Reason: Sore Throat Last Admin: 12/23/16 12:36 Dose: 1 jacquelyn Carbidopa/Levodopa (Sinemet) 1 tab PO Q8 [facility] Last Admin: 12/25/16 06:24 Dose: 1 tab Diltiazem HCl (Cardizem Cd) 300 mg PO DAILY [facility] Last Admin: 12/25/16 10:10 Dose: 300 mg Emollient Ointment (Vaseline Oint) 5 gm TOP BID PRN PRN Reason: Dry skin Last Admin: 12/21/16 01:28 Dose: 5 gm Heparin Sodium (Porcine) (Heparin) 5,000 units SC Q12 [facility] Last Admin: 12/25/16 10:13 Dose: 5,000 units Ciprofloxacin (Cipro 400mg/200ml Dsw) 400 mg in 200 mls @ 133 mls/hr IVPB Q12H [facility] Last Admin: 12/25/16 06:30 Dose: 133 mls/hr Metronidazole (Flagyl) 500 mg in 100 mls @ 100 mls/hr IVPB Q8 [facility] Last Admin: 12/25/16 05:00 Dose: 100 mls/hr Dextrose/Sodium Chloride (Dextrose 5%/0.45% Ns 1000 Ml) 1,000 mls @ 80 mls/hr IV .[id number] [facility] Last Admin: 12/25/16 12:18 Dose: Not Given Lactobacillus Acidophilus (Bacid Acidophilus) 1 cap PO BID [facility] Last Admin: 12/25/16 10:10 Dose: 1 cap Losartan Potassium (Cozaar) 100 mg PO DAILY [facility] Last Admin: 12/25/16 10:10 Dose: 100 mg Morphine Sulfate (Morphine) 2 mg IVP Q4 PRN PRN Reason: Pain, moderate (4-7) Last Admin: 12/25/16 10:42 Dose: 2 mg Neomycin/Polymyxin/Hydrocortisone (Cortisporin Otic Soln) 2 drop AU QID [facility] Last Admin: 12/25/16 10:10 Dose: 2 drop Nitroglycerin (Nitro-Bid 2% Oint) 1 ea TOP Q6 [facility] Last Admin: 12/25/16 12:14 Dose: 1 ea Ondansetron HCl (Zofran Inj) 4 mg IVP Q4 PRN PRN Reason: Nausea/Vomiting Last Admin: 12/21/16 23:57 Dose: 4 mg Pantoprazole Sodium (Protonix Inj) 40 mg IVP DAILY [facility] Last Admin: 12/25/16 10:10 Dose: 40 mg Phenol/Menthol (Phenaseptic 1.4% Throat [place]) 0 ml [place] Q2H PRN PRN Reason: Sore Throat Last Admin: 12/24/16 10:54 Dose: 1 spr Rosuvastatin Calcium (Crestor) 5 mg PO HS [facility] Last Admin: 12/24/16 22:33 Dose: 5 mg - Labs Labs: 12/25/16 06:25 12/25/16 06:25 PT 12.6 SECONDS (9.7-12.2) H 12/21/16 11:39 INR 1.1 12/21/16 11:39 APTT 25 SECONDS (21-34) 12/21/16 11:39 - Constitutional Appears: Non-toxic, No Acute Distress - Head Exam Head Exam: ATRAUMATIC, NORMOCEPHALIC - Eye Exam Eye Exam: EOMI. absent: Scleral icterus - ENT Exam ENT Exam: Mucous Membranes Moist - Neck Exam Neck Exam: Full ROM - Respiratory Exam Respiratory Exam: NORMAL BREATHING PATTERN. absent: Accessory Muscle Use, Respiratory Distress - GI/Abdominal Exam GI & Abdominal Exam: Soft. absent: Distended, Firm, Guarding, Rigid, Tenderness Additional comments: incision C/D/I - Extremities Exam Extremities Exam: absent: Calf Tenderness - Neurological Exam Neurological Exam: Alert, Awake Assessment and Plan - Assessment and Plan (Free Text) Assessment: 85F w. SBO s/p ex-lap w. small bowel resection and primary anastomosis POD#4 -will D/C NGT -c/w CLD -monitor bowel fxn -c/w medical management -d/w attending Matthew PGY2
[2016-12-25] MEDS: Benzocaine/Menthol (Cepacol) Lozenge MT PRN (13:32)
--- NOTE | 2016-12-25 16:14 | PN ---
DATE: 12/25/2016 The patient denies any chest pain. She still has nasogastric tube, but not connected to suction. PHYSICAL EXAMINATION: VITAL SIGNS: Blood pressure 149/72, heart rate 87, temperature 98.8, respiration 18. HEENT: Pale conjunctivae. CHEST: Clear. HEART: S1, S2 regular. EXTREMITIES: No edema. LABORATORIES: Hemoglobin and hematocrit 8.0 and 24.2, white count and platelet count are within norm al limit. Today's SMA-7: Sodium 128, potassium 3.8, chloride 98, CO2 26, glucose 118, BUN 7, creati nine 0.6. ASSESSMENT: 1. Status post small bowel resection for distal small bowel obstruction. 2. Hypertension. 3. 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 4. Bilateral pneumonia. RECOMMENDATIONS: Continue current subcutaneous heparin 5000 units twice a day, Crestor at 5 mg once a day, Cozaar at 100 mg once a day, Cardizem-CD at 300 mg twice a day. May discontinue telemetry. N o further cardiac workup is indicated. Eben Rojas MD cc: [id number] TT: 12/25/2016 16:13:30 Confirmation # [id number] Dictation # [id number] en
[2016-12-25] MEDS ORDERED: Imipenem/Cilastatin 500 MG in Dextrose 5% In Water 100 ML IVPB SCH (18:00)
[2016-12-25] MEDS: Aztreonam 2 GM in Sodium Chloride 0.9% 100 ML IVPB SCH (18:48)
[2016-12-26] MEDS: Dextrose 5%/0.45% NS 1,000 ML IV SCH ×3 (00:30→15:56)
[2016-12-26] MEDS: Albuterol-Ipratrop 3 mg / 0.5 (3 ml) UD INH SCH ×4 (01:21→20:36)
[2016-12-26] MEDS: Acetylcysteine 20% Inhal Soln (4ml) INH SCH ×4 (01:21→20:36)
[2016-12-26] MEDS: Aztreonam 2 GM in Sodium Chloride 0.9% 100 ML IVPB SCH ×3 (02:59→19:38)
[2016-12-26] MEDS: Nitroglycerin 2% Ointment Foilpak UD TOP SCH ×4 (05:50→18:35)
[2016-12-26] MEDS: Neomycin/Polymyxin/Hydrocort Otic Soln BOTTLE AU SCH ×4 (10:00→23:01)
--- NOTE | 2016-12-26 10:30 | CP.PCM.PN ---
Subjective - Date & Time of Evaluation Date of Evaluation: 12/25/16 Time of Evaluation: 11:05 - Subjective Subjective: Pt seen and examined. No acute events overnight. Pain is controlled. Tolerating CLD. No N/V. +Flatus. No BM. Objective - Vital Signs/Intake and Output Vital Signs (last 24 hours): Temp Pulse Resp BP Pulse Ox 99.2 F 90 20 138/69 96 12/26/16 08:30 12/26/16 08:30 12/26/16 08:30 12/26/16 08:30 12/26/16 08:30 Intake and Output: 12/26/16 12/26/16 06:59 18:59 Intake Total 740 Output Total 925 Balance -185 - Medications Medications: Current Medications Acetaminophen (Tylenol 325 Mg Supp) 325 mg [place] Q6 PRN PRN Reason: Fever >100.4 F Last Admin: 12/26/16 05:38 Dose: 325 mg Acetylcysteine (Acetylcysteine 20%) 4 ml INH RQ6 [facility] Last Admin: 12/26/16 07:43 Dose: 4 ml Albuterol/Ipratropium (Duoneb 3 Mg/0.5 Mg (3 Ml) Ud) 3 ml INH RQ6 [facility] Last Admin: 12/26/16 07:43 Dose: 3 ml Benzocaine/Menthol (Cepacol Sore Throat) 1 jacquelyn MT Q2H PRN PRN Reason: Sore Throat Last Admin: 12/25/16 13:32 Dose: 1 jacquelyn Carbidopa/Levodopa (Sinemet) 1 tab PO Q8 [facility] Last Admin: 12/26/16 05:50 Dose: 1 tab Diltiazem HCl (Cardizem Cd) 300 mg PO DAILY [facility] Last Admin: 12/25/16 10:10 Dose: 300 mg Emollient Ointment (Vaseline Oint) 5 gm TOP BID PRN PRN Reason: Dry skin Last Admin: 12/21/16 01:28 Dose: 5 gm Heparin Sodium (Porcine) (Heparin) 5,000 units SC Q12 [facility] Last Admin: 12/25/16 21:54 Dose: 5,000 units Dextrose/Sodium Chloride (Dextrose 5%/0.45% Ns 1000 Ml) 1,000 mls @ 80 mls/hr IV .[id number] [facility] Last Admin: 12/26/16 00:30 Dose: 80 mls/hr Aztreonam 2 gm/ Sodium (Chloride) 100 mls @ 100 mls/hr IVPB Q8H [facility] Last Admin: 12/26/16 02:59 Dose: 100 mls/hr Lactobacillus Acidophilus (Bacid Acidophilus) 1 cap PO BID [facility] Last Admin: 12/25/16 17:32 Dose: 1 cap Losartan Potassium (Cozaar) 100 mg PO DAILY [facility] Last Admin: 12/25/16 10:10 Dose: 100 mg Metoclopramide HCl (Reglan) 10 mg IVP Q6H [facility] Stop: 12/27/16 02:46 Morphine Sulfate (Morphine) 2 mg IVP Q4 PRN PRN Reason: Pain, moderate (4-7) Last Admin: 12/26/16 05:04 Dose: 2 mg Mupirocin (Bactroban 2% Nasal) 0.5 gm VIRAJ BID [facility] Stop: 12/31/16 10:01 Neomycin/Polymyxin/Hydrocortisone (Cortisporin Otic Soln) 2 drop AU QID [facility] Last Admin: 12/25/16 21:54 Dose: 2 drop Nitroglycerin (Nitro-Bid 2% Oint) 1 ea TOP Q6 [facility] Last Admin: 12/26/16 05:50 Dose: 1 ea Ondansetron HCl (Zofran Inj) 4 mg IVP Q4 PRN PRN Reason: Nausea/Vomiting Last Admin: 12/21/16 23:57 Dose: 4 mg Pantoprazole Sodium (Protonix Inj) 40 mg IVP DAILY [facility] Last Admin: 12/25/16 10:10 Dose: 40 mg Phenol/Menthol (Phenaseptic 1.4% Throat [place]) 0 ml [place] Q2H PRN PRN Reason: Sore Throat Last Admin: 12/24/16 10:54 Dose: 1 spr Rosuvastatin Calcium (Crestor) 5 mg PO HS [facility] Last Admin: 12/25/16 21:54 Dose: 5 mg - Labs Labs: 12/25/16 06:25 12/25/16 06:25 PT 12.6 SECONDS (9.7-12.2) H 12/21/16 11:39 INR 1.1 12/21/16 11:39 APTT 25 SECONDS (21-34) 12/21/16 11:39 - Constitutional Appears: No Acute Distress - Head Exam Head Exam: ATRAUMATIC, NORMAL INSPECTION, NORMOCEPHALIC - Eye Exam Eye Exam: EOMI, Normal appearance, PERRL Pupil Exam: NORMAL ACCOMODATION, PERRL - Respiratory Exam Respiratory Exam: Clear to Ausculation Bilateral, NORMAL BREATHING PATTERN - Cardiovascular Exam Cardiovascular Exam: REGULAR RHYTHM, +S1, +S2. absent: Murmur - GI/Abdominal Exam GI & Abdominal Exam: Soft, Normal Bowel Sounds. absent: Tenderness Assessment and Plan (1) Abdominal pain Status: Acute (2) Small bowel obstruction Status: Acute (3) Diabetes mellitus Status: Chronic (4) Hypertension Status: Chronic
[2016-12-26] MEDS: diltiaZEM 300 mg/24 Hours CD Cap PO SCH (10:59)
[2016-12-26] MEDS: Lactobacillus Acidophilus 500 MU Cap PO SCH ×2 (10:59→19:41)
[2016-12-26] MEDS: Mupirocin 2% Ointment (NASAL) NAS SCH ×2 (10:59→18:35)
--- NOTE | 2016-12-26 13:06 | CP.PCM.PN ---
Subjective - Date & Time of Evaluation Date of Evaluation: 12/26/16 Time of Evaluation: 07:00 - Subjective Subjective: GENERAL SURGERY PROGRESS NOTE FOR DR. CUENCA Patient seen and examined at bedside. She reports occasional abdominal pain but mostly complained of throat pain. She hasn't eaten much because she does not want to swallow. She only drank a little juice. Per her family at bedside, she has not passed any more flatus and has not had a BM yet. She denies nausea or vomiting. NG tube was removed yesterday. Objective - Vital Signs/Intake and Output Vital Signs (last 24 hours): Temp Pulse Resp BP Pulse Ox 99.9 F H 83 20 126/73 95 12/26/16 12:30 12/26/16 12:30 12/26/16 12:30 12/26/16 12:30 12/26/16 12:30 Intake and Output: 12/26/16 12/26/16 06:59 18:59 Intake Total 740 Output Total 925 Balance -185 - Medications Medications: Current Medications Acetaminophen (Tylenol 325 Mg Supp) 325 mg [place] Q6 PRN PRN Reason: Fever >100.4 F Last Admin: 12/26/16 05:38 Dose: 325 mg Acetylcysteine (Acetylcysteine 20%) 4 ml INH RQ6 [facility] Last Admin: 12/26/16 07:43 Dose: 4 ml Albuterol/Ipratropium (Duoneb 3 Mg/0.5 Mg (3 Ml) Ud) 3 ml INH RQ6 [facility] Last Admin: 12/26/16 07:43 Dose: 3 ml Benzocaine/Menthol (Cepacol Sore Throat) 1 jacquelyn MT Q2H PRN PRN Reason: Sore Throat Last Admin: 12/25/16 13:32 Dose: 1 jacquelyn Carbidopa/Levodopa (Sinemet) 1 tab PO Q8 [facility] Last Admin: 12/26/16 05:50 Dose: 1 tab Diltiazem HCl (Cardizem Cd) 300 mg PO DAILY [facility] Last Admin: 12/26/16 10:59 Dose: 300 mg Emollient Ointment (Vaseline Oint) 5 gm TOP BID PRN PRN Reason: Dry skin Last Admin: 12/21/16 01:28 Dose: 5 gm Heparin Sodium (Porcine) (Heparin) 5,000 units SC Q12 [facility] Last Admin: 12/26/16 10:59 Dose: 5,000 units Dextrose/Sodium Chloride (Dextrose 5%/0.45% Ns 1000 Ml) 1,000 mls @ 80 mls/hr IV .[id number] [facility] Last Admin: 12/26/16 00:30 Dose: 80 mls/hr Aztreonam 2 gm/ Sodium (Chloride) 100 mls @ 100 mls/hr IVPB Q8H [facility] Last Admin: 12/26/16 10:58 Dose: 100 mls/hr Lactobacillus Acidophilus (Bacid Acidophilus) 1 cap PO BID [facility] Last Admin: 12/26/16 10:59 Dose: 1 cap Losartan Potassium (Cozaar) 100 mg PO DAILY [facility] Last Admin: 12/26/16 10:59 Dose: 100 mg Metoclopramide HCl (Reglan) 10 mg IVP Q6H [facility] Stop: 12/27/16 02:46 Last Admin: 12/26/16 10:59 Dose: 10 mg Morphine Sulfate (Morphine) 2 mg IVP Q4 PRN PRN Reason: Pain, moderate (4-7) Last Admin: 12/26/16 11:07 Dose: 2 mg Mupirocin (Bactroban 2% Nasal) 0.5 gm VIRAJ BID [facility] Stop: 12/31/16 10:01 Last Admin: 12/26/16 10:59 Dose: 0.5 gm Neomycin/Polymyxin/Hydrocortisone (Cortisporin Otic Soln) 2 drop AU QID [facility] Last Admin: 12/25/16 21:54 Dose: 2 drop Nitroglycerin (Nitro-Bid 2% Oint) 1 ea TOP Q6 [facility] Last Admin: 12/26/16 12:28 Dose: 1 ea Ondansetron HCl (Zofran Inj) 4 mg IVP Q4 PRN PRN Reason: Nausea/Vomiting Last Admin: 12/21/16 23:57 Dose: 4 mg Pantoprazole Sodium (Protonix Inj) 40 mg IVP DAILY [facility] Last Admin: 12/26/16 10:59 Dose: 40 mg Phenol/Menthol (Phenaseptic 1.4% Throat [place]) 0 ml MT Q2H PRN PRN Reason: Sore Throat Last Admin: 12/24/16 10:54 Dose: 1 spr Rosuvastatin Calcium (Crestor) 5 mg PO HS [facility] Last Admin: 12/25/16 21:54 Dose: 5 mg - Labs Labs: 12/25/16 06:25 12/25/16 06:25 PT 12.6 SECONDS (9.7-12.2) H 12/21/16 11:39 INR 1.1 12/21/16 11:39 APTT 25 SECONDS (21-34) 12/21/16 11:39 - Constitutional Appears: Non-toxic, No Acute Distress - Respiratory Exam Respiratory Exam: NORMAL BREATHING PATTERN. absent: Respiratory Distress - Cardiovascular Exam Cardiovascular Exam: +S1, +S2 - GI/Abdominal Exam GI & Abdominal Exam: Soft. absent: Distended, Firm, Guarding, Rigid, Tenderness , Rebound Additional comments: Dressing clean/dry/intact - Neurological Exam Neurological Exam: Alert, Awake - Psychiatric Exam Psychiatric exam: Normal Affect, Normal Mood - Skin Skin Exam: Normal Color, Warm Assessment and Plan - Assessment and Plan (Free Text) Assessment: 85yo F with PMHx of CHF, COPD, PE, s/p open cholecystectomy who presented with abdominal pain and was found to have partial SBO secondary to bezoar, s/p exploratory laparotomy with small bowel resection and primary anastomosis, POD#5 - Tmax 102 overnight, currently Afebrile, VSS - NG tube removed yesterday - Has passed small amount of flatus before, but not today, no BM yet - Strongly encouraged ambulation and discussed importance with family - Continue PT - Has Cepacol and throat spray ordered for throat pain - Ensure ordered TID - Discussed plan with Dr. Jerome Reed PGY-2
[2016-12-26 13:28] LABS: LYMPH # 0.5 K/uL (1.0-4.3); MONO # 0.4 K/uL (0.0-0.8); NRBC % 0.1 % (0.0-2.0)
[2016-12-26 13:32] LABS: BASO % 0.4 % (0.0-2.0); EOS % 1.2 % (0.0-4.0); HEMATOCRIT 24.8 % (34.0-47.0); LYMPH % 14.5 % (20.0-40.0); MEAN CELL VOLUME 81.8 fL (81.0-99.0); MEAN CORPUSCULAR HEMOGLOBIN 26.6 pg (27.0-31.0); MEAN CORPUSCULAR HGB CONC 32.5 g/dL (33.0-37.0); MEAN PLATELET VOLUME 7.3 fL (7.2-11.7); RED CELL DISTRIBUTION WIDTH 15.3 % (11.5-14.5); WHITE BLOOD COUNT 3.8 K/uL (4.8-10.8)
[2016-12-26 13:36] LABS: CHLORIDE 99 mmol/L (98-107)
[2016-12-26 13:37] LABS: POTASSIUM 3.6 mmol/L (3.6-5.2); SODIUM 129 mmol/L (132-148)
[2016-12-26 13:39] LABS: ALB/GLOB RATIO 0.7 (1.0-2.1); AST/SGOT 19 U/L (14-36); BILIRUBIN,TOTAL 0.4 mg/dL (0.2-1.3); BLOOD UREA NITROGEN 6 mg/dL (7-17); CARBON DIOXIDE 25 mmol/L (22-30); GFR AFRICAN-AMERICAN > 60; TOTAL PROTEIN 5.3 g/dL (6.3-8.3)
[2016-12-26 13:40] LABS: ALKALINE PHOSPHATASE 53 U/L (38-126); ALT/SGPT 21 U/L (9-52); CALCIUM 7.8 mg/dl (8.6-10.4); GLUCOSE,RANDOM 129 mg/dL (65-105)
--- NOTE | 2016-12-26 22:25 | CP.PCM.PN ---
Subjective - Date & Time of Evaluation Date of Evaluation: 12/26/16 Time of Evaluation: 11:13 - Subjective Subjective: Pt is seen and examined, febrile temp 102.4, pt is weak and drowsy, her blood cultures and urine cultures are negative, not complaining of anything, post op wound is clean Objective - Vital Signs/Intake and Output Vital Signs (last 24 hours): Temp Pulse Resp BP Pulse Ox 102.4 F H 93 H 22 139/70 93 L 12/26/16 20:45 12/26/16 15:25 12/26/16 15:25 12/26/16 15:25 12/26/16 15:25 Intake and Output: 12/26/16 12/27/16 18:59 06:59 Output Total 600 Balance -600 - Medications Medications: Current Medications Acetaminophen (Tylenol 325 Mg Supp) 325 mg [place] Q6 PRN PRN Reason: Fever >100.4 F Last Admin: 12/26/16 20:45 Dose: 325 mg Acetylcysteine (Acetylcysteine 20%) 4 ml INH RQ6 [facility] Last Admin: 12/26/16 20:36 Dose: 4 ml Albuterol/Ipratropium (Duoneb 3 Mg/0.5 Mg (3 Ml) Ud) 3 ml INH RQ6 [facility] Last Admin: 12/26/16 20:36 Dose: 3 ml Benzocaine/Menthol (Cepacol Sore Throat) 1 jacquelyn MT Q2H PRN PRN Reason: Sore Throat Last Admin: 12/25/16 13:32 Dose: 1 jacquelyn Carbidopa/Levodopa (Sinemet) 1 tab PO Q8 [facility] Last Admin: 12/26/16 13:53 Dose: 1 tab Diltiazem HCl (Cardizem Cd) 300 mg PO DAILY [facility] Last Admin: 12/26/16 10:59 Dose: 300 mg Emollient Ointment (Vaseline Oint) 5 gm TOP BID PRN PRN Reason: Dry skin Last Admin: 12/21/16 01:28 Dose: 5 gm Heparin Sodium (Porcine) (Heparin) 5,000 units SC Q12 [facility] Last Admin: 12/26/16 10:59 Dose: 5,000 units Dextrose/Sodium Chloride (Dextrose 5%/0.45% Ns 1000 Ml) 1,000 mls @ 80 mls/hr IV .[id number] [facility] Last Admin: 12/26/16 15:56 Dose: 80 mls/hr Aztreonam 2 gm/ Sodium (Chloride) 100 mls @ 100 mls/hr IVPB Q8H [facility] Last Admin: 12/26/16 19:38 Dose: 100 mls/hr Lactobacillus Acidophilus (Bacid Acidophilus) 1 cap PO BID [facility] Last Admin: 12/26/16 19:41 Dose: 1 cap Losartan Potassium (Cozaar) 100 mg PO DAILY [facility] Last Admin: 12/26/16 10:59 Dose: 100 mg Morphine Sulfate (Morphine) 2 mg IVP Q4 PRN PRN Reason: Pain, moderate (4-7) Last Admin: 12/26/16 20:46 Dose: 2 mg Mupirocin (Bactroban 2% Nasal) 0.5 gm VIRAJ BID [facility] Stop: 12/31/16 10:01 Last Admin: 12/26/16 18:35 Dose: 0.5 gm Neomycin/Polymyxin/Hydrocortisone (Cortisporin Otic Soln) 2 drop AU QID [facility] Last Admin: 12/26/16 18:35 Dose: 2 drop Nitroglycerin (Nitro-Bid 2% Oint) 1 ea TOP Q6 [facility] Last Admin: 12/26/16 18:35 Dose: 1 ea Ondansetron HCl (Zofran Inj) 4 mg IVP Q4 PRN PRN Reason: Nausea/Vomiting Last Admin: 12/21/16 23:57 Dose: 4 mg Pantoprazole Sodium (Protonix Inj) 40 mg IVP DAILY [facility] Last Admin: 12/26/16 10:59 Dose: 40 mg Phenol/Menthol (Phenaseptic 1.4% Throat [place]) 0 ml MT Q2H PRN PRN Reason: Sore Throat Last Admin: 12/24/16 10:54 Dose: 1 spr Rosuvastatin Calcium (Crestor) 5 mg PO HS [facility] Last Admin: 12/25/16 21:54 Dose: 5 mg - Labs Labs: 12/26/16 13:20 12/26/16 13:20 PT 12.6 SECONDS (9.7-12.2) H 12/21/16 11:39 INR 1.1 12/21/16 11:39 APTT 25 SECONDS (21-34) 12/21/16 11:39 - Constitutional Appears: In Acute Distress, Chronically Ill - Head Exam Head Exam: ATRAUMATIC, NORMAL INSPECTION, NORMOCEPHALIC - Eye Exam Eye Exam: EOMI, Normal appearance, PERRL Pupil Exam: NORMAL ACCOMODATION, PERRL - ENT Exam ENT Exam: Mucous Membranes Moist - Respiratory Exam Respiratory Exam: Clear to Ausculation Bilateral, NORMAL BREATHING PATTERN - Cardiovascular Exam Cardiovascular Exam: REGULAR RHYTHM, +S1, +S2. absent: Murmur - GI/Abdominal Exam GI & Abdominal Exam: Soft, Normal Bowel Sounds. absent: Tenderness Assessment and Plan (1) Abdominal pain Status: Acute (2) Small bowel obstruction Status: Acute (3) Diabetes mellitus Status: Chronic (4) Hypertension Status: Chronic - Assessment and Plan (Free Text) Plan: FEVER R/O sepsis order 2 more sets of cultures discussed case with and his family CXR to rule out pnemonia if pt doesnot improve will order CAT scan abdomen will adjust antibiotics, right now on zythromax and azectam
[2016-12-26] MEDS ORDERED: Amikacin Sulfate 1,000 MG in Sodium Chloride 0.9% 250 ML IVPB SCH (22:45)
[2016-12-26] MEDS ORDERED: Amikacin Sulfate 1,000 MG in Sodium Chloride 0.9% 250 ML IVPB ONE (22:45)
[2016-12-27] MEDS: Nitroglycerin 2% Ointment Foilpak UD TOP SCH ×4 (00:36→19:27)
[2016-12-27] MEDS: Acetylcysteine 20% Inhal Soln (4ml) INH SCH ×4 (01:45→19:56)
[2016-12-27] MEDS: Albuterol-Ipratrop 3 mg / 0.5 (3 ml) UD INH SCH ×4 (01:45→19:56)
[2016-12-27] MEDS: Dextrose 5%/0.45% NS 1,000 ML IV SCH ×2 (02:36→07:59)
[2016-12-27 07:21] LABS: BASO % 0.7 % (0.0-2.0); HEMATOCRIT 23.2 % (34.0-47.0); LYMPH # 0.6 K/uL (1.0-4.3); MEAN CELL VOLUME 81.6 fL (81.0-99.0); MEAN CORPUSCULAR HEMOGLOBIN 26.7 pg (27.0-31.0); MEAN CORPUSCULAR HGB CONC 32.7 g/dL (33.0-37.0); MEAN PLATELET VOLUME 7.8 fL (7.2-11.7); MONO # 0.4 K/uL (0.0-0.8); NRBC % 0.2 % (0.0-2.0); RED CELL DISTRIBUTION WIDTH 15.4 % (11.5-14.5); WHITE BLOOD COUNT 4.1 K/uL (4.8-10.8)
[2016-12-27 07:23] LABS: CHLORIDE 100 mmol/L (98-107); POTASSIUM 3.6 mmol/L (3.6-5.2); SODIUM 132 mmol/L (132-148)
[2016-12-27 07:25] LABS: BILIRUBIN,TOTAL 0.5 mg/dL (0.2-1.3); GFR AFRICAN-AMERICAN > 60
[2016-12-27 07:26] LABS: ALKALINE PHOSPHATASE 48 U/L (38-126); ALT/SGPT 17 U/L (9-52); AST/SGOT 34 U/L (14-36); BLOOD UREA NITROGEN 9 mg/dL (7-17); CARBON DIOXIDE 26 mmol/L (22-30); GLUCOSE,RANDOM 115 mg/dL (65-105); TOTAL PROTEIN 5.3 g/dL (6.3-8.3)
[2016-12-27 07:27] LABS: CALCIUM 7.4 mg/dl (8.6-10.4)
[2016-12-27 07:36] LABS: ALB/GLOB RATIO 0.8 (1.0-2.1)
--- NOTE | 2016-12-27 08:34 | RAD ---
HISTORY: Pneumonia COMPARISON: No prior. FINDINGS: LUNGS: Right PICC line with tip extending to the cavoatrial junction. Moderate venous congestion with prominent bibasilar airspace opacities and small left pleural effusion. PLEURA: As above. CARDIOVASCULAR: Cardiomegaly. Calcification at the aortic knob. OSSEOUS STRUCTURES: Degenerative changes in the spine and shoulders. VISUALIZED UPPER ABDOMEN: Normal. OTHER FINDINGS: None. IMPRESSION: Right PICC line with tip extending to the cavoatrial junction. Moderate venous congestion with prominent bibasilar airspace opacities and small left pleural effusion.
[2016-12-27] MEDS: Neomycin/Polymyxin/Hydrocort Otic Soln BOTTLE AU SCH ×4 (11:35→22:00)
[2016-12-27] MEDS: diltiaZEM 300 mg/24 Hours CD Cap PO SCH (11:45)
[2016-12-27] MEDS: Lactobacillus Acidophilus 500 MU Cap PO SCH ×2 (11:45→19:35)
--- NOTE | 2016-12-27 11:50 | CP.PCM.CON ---
History of Present Illness - History of Present Illness History of Present Illness: INFECTIOUS DISEASE CONSULT; HPI: 85yo female with PMHx significant for HTN, DM ,hyperlipidemia, arthritis, CHF, COPD, PE not on anticoagulation, Parkinson's disease, diverticulosis who presented to the ED with abdominal pain. The patient was recently admitted for a COPD exacerbation along with E. COLI UTI and was discharged to [facility] on 12/13/16. While in [facility], patient developed diffuse abdominal pain along with nausea and vomiting. Patient was found to have a SBO and underwent exploratory laparotomy and lysis of adhesion and removal of bezoir in distal small bowel on 12/21/16. Postoperatively patient developed pneumonia and was started empirically on IV Azactam 2 g every 8 hourly. Infectious disease consultation requested by PMD DR STANISLAW TANG as patient' has been spiking temperature to 102.4. Patient is allergic to penicillin Chest x-ray 12/24/16 consistent with right lower lobe infiltrate. CT of the abdomen and pelvis without by mouth or IV contrast performed 12/21/16 also showed bilateral lower lobe consolidations with fluid-filled dilated small bowel loops suggestive of distal obstruction. Marked bladder distention was also seen at that time. PMHx: See HPI PSHx: B/L knee replacement, IVC filter placement, back surgery, cholecystectomy FHx: denies any significant family history Social: Denies Review of Systems - Constitutional Constitutional: Lethargy, Malaise - EENT Nose/Mouth/Throat: Dry Mouth - Cardiovascular Cardiovascular: Dyspnea, Edema. absent: Chest Pain - Respiratory Respiratory: Chest Congestion. absent: Hemoptysis - Gastrointestinal Gastrointestinal: Abdominal Pain (incision line cristy in place. Wound looks clean. No drainage presently noted..) - Genitourinary Genitourinary: Difficulty Urinating, Urinary Hesitance (Lewis catheter placed under sterile conditions.) - Neurological Neurological: absent: Headaches - Endocrine Endocrine: As Per HPI - Hematologic/Lymphatic Hematologic: As Per HPI Past Patient History - Infectious Disease Hx of Infectious Diseases: None - Past Medical History & Family History Past Medical History?: Yes - Past Social History Smoking Status: Never Smoked - CARDIAC Hx Congestive Heart Failure: Yes (Around 10 yrs ago) Hx Hypercholesterolemia: Yes Hx Hypertension: Yes - PULMONARY Hx Chronic Obstructive Pulmonary Disease (COPD): Yes - NEUROLOGICAL Hx Parkinson's Disease: Yes - HEENT Hx Cataracts: Yes (hx, cataract surgery 4 yrs ago) Other/Comment: wear eyeglasses - RENAL Hx Chronic Kidney Disease: No - ENDOCRINE/METABOLIC Hx Diabetes Mellitus Type 2: Yes - HEMATOLOGICAL/ONCOLOGICAL Hx Anemia: Yes - INTEGUMENTARY Hx Dermatological Problems: No - MUSCULOSKELETAL/RHEUMATOLOGICAL Hx Arthritis: Yes (hx. back surgery; B/L TKR) - GASTROINTESTINAL Hx Gastrointestinal Disorders: No - GENITOURINARY/GYNECOLOGICAL Hx Genitourinary Disorders: No Hx Urinary Tract Infection: Yes - PSYCHIATRIC Hx Substance Use: No - SURGICAL HISTORY Hx Cataract Extraction: Yes Hx Joint Replacement: Yes (Bilateral knee replacement) Other/Comment: Back surgery (Bone fusion), Gallbladder surgery, skin graft surgery left leg, green filter placement - ANESTHESIA Hx Anesthesia: Yes Hx Anesthesia Reactions: No Hx Malignant Hyperthermia: No Meds Allergies/Adverse Reactions: Allergies Allergy/AdvReac Type Severity Reaction Status Date / Time Penicillins Allergy Verified 11/01/15 12:32 - Medications Medications: Current Medications Acetaminophen (Tylenol 325 Mg Supp) 325 mg [place] Q6 PRN PRN Reason: Fever >100.4 F Last Admin: 12/26/16 20:45 Dose: 325 mg Acetylcysteine (Acetylcysteine 20%) 4 ml INH RQ6 [facility] Last Admin: 12/27/16 07:31 Dose: 4 ml Albuterol/Ipratropium (Duoneb 3 Mg/0.5 Mg (3 Ml) Ud) 3 ml INH RQ6 [facility] Last Admin: 12/27/16 07:31 Dose: 3 ml Benzocaine/Menthol (Cepacol Sore Throat) 1 jacquelyn MT Q2H PRN PRN Reason: Sore Throat Last Admin: 12/25/16 13:32 Dose: 1 jacquelyn Carbidopa/Levodopa (Sinemet) 1 tab PO Q8 [facility] Last Admin: 12/27/16 07:10 Dose: 1 tab Diltiazem HCl (Cardizem Cd) 300 mg PO DAILY [facility] Last Admin: 12/26/16 10:59 Dose: 300 mg Emollient Ointment (Vaseline Oint) 5 gm TOP BID PRN PRN Reason: Dry skin Last Admin: 12/21/16 01:28 Dose: 5 gm Heparin Sodium (Porcine) (Heparin) 5,000 units SC Q12 [facility] Last Admin: 12/26/16 22:58 Dose: 5,000 units Dextrose/Sodium Chloride (Dextrose 5%/0.45% Ns 1000 Ml) 1,000 mls @ 80 mls/hr IV .[id number] [facility] Last Admin: 12/27/16 07:59 Dose: 80 mls/hr Lactobacillus Acidophilus (Bacid Acidophilus) 1 cap PO BID [facility] Last Admin: 12/26/16 19:41 Dose: 1 cap Losartan Potassium (Cozaar) 100 mg PO DAILY [facility] Last Admin: 12/26/16 10:59 Dose: 100 mg Morphine Sulfate (Morphine) 2 mg IVP Q4 PRN PRN Reason: Pain, moderate (4-7) Last Admin: 12/27/16 05:02 Dose: 2 mg Mupirocin (Bactroban 2% Nasal) 0.5 gm VIRAJ BID [facility] Stop: 12/31/16 10:01 Last Admin: 12/26/16 18:35 Dose: 0.5 gm Neomycin/Polymyxin/Hydrocortisone (Cortisporin Otic Soln) 2 drop AU QID [facility] Last Admin: 12/26/16 23:01 Dose: 2 drop Nitroglycerin (Nitro-Bid 2% Oint) 1 ea TOP Q6 [facility] Last Admin: 12/27/16 07:10 Dose: 1 ea Ondansetron HCl (Zofran Inj) 4 mg IVP Q4 PRN PRN Reason: Nausea/Vomiting Last Admin: 12/21/16 23:57 Dose: 4 mg Pantoprazole Sodium (Protonix Inj) 40 mg IVP DAILY [facility] Last Admin: 12/26/16 10:59 Dose: 40 mg Phenol/Menthol (Phenaseptic 1.4% Throat [place]) 0 ml MT Q2H PRN PRN Reason: Sore Throat Last Admin: 12/24/16 10:54 Dose: 1 spr Rosuvastatin Calcium (Crestor) 5 mg PO HS [facility] Last Admin: 12/26/16 23:02 Dose: 5 mg Physical Exam - Constitutional Appears: No Acute Distress - Head Exam Head Exam: NORMAL INSPECTION - Eye Exam Eye Exam: EOMI, PERRL - ENT Exam ENT Exam: Mucous Membranes Dry - Neck Exam Neck exam: Positive for: Normal Inspection - Respiratory Exam Respiratory Exam: Decreased Breath Sounds (at the bases.), Rhonchi - Cardiovascular Exam Cardiovascular Exam: REGULAR RHYTHM, +S1, +S2 - GI/Abdominal Exam GI & Abdominal Exam: Normal Bowel Sounds, Soft, Tenderness (mild tenderness suture line.) - Extremities Exam Extremities exam: Positive for: pedal pulses present. Negative for: calf tenderness - Neurological Exam Neurological exam: Alert, CN II-XII Intact - Psychiatric Exam Psychiatric exam: Normal Mood - Skin Skin Exam: Pallor Results - Vital Signs Recent Vital Signs: Last Vital Signs Temp 98.5 F 12/27/16 11:30 Pulse 85 12/27/16 11:30 Resp 22 12/27/16 11:30 BP 122/55 L 12/27/16 11:30 Pulse Ox 97 12/27/16 11:30 - Labs Result Diagrams: 12/28/16 04:00 12/28/16 04:00 Labs: Laboratory Results - last 24 hr 12/26/16 12/26/16 12/27/16 13:20 13:20 07:00 WBC 3.8 L 4.1 L RBC 3.03 L 2.84 L Hgb 8.1 L 7.6 L Hct 24.8 L 23.2 L MCV 81.8 81.6 MCH 26.6 L 26.7 L MCHC 32.5 L 32.7 L RDW 15.3 H 15.4 H Plt Count 129 L 135 MPV 7.3 7.8 Neut % (Auto) 73.9 72.3 Lymph % (Auto) 14.5 L 15.0 L [place] % (Auto) 10.0 11.0 H Eos % (Auto) 1.2 1.0 Baso % (Auto) 0.4 0.7 Neut # 2.8 3.0 Lymph # 0.5 L 0.6 L [place] # 0.4 0.4 Eos # 0.0 0.0 Baso # 0.0 0.0 Differential Comment Sodium 129 L Potassium 3.6 Chloride 99 Carbon Dioxide 25 Anion Gap 9 L BUN 6 L Creatinine 0.8 Est GFR ( Amer) > 60 Est GFR (Non-Af Amer) > 60 Random Glucose 129 H Calcium 7.8 L Total Bilirubin 0.4 AST 19 ALT 21 Alkaline Phosphatase 53 Total Protein 5.3 L Albumin 2.1 L Globulin 3.2 Albumin/Globulin Ratio 0.7 L 12/27/16 07:00 WBC RBC Hgb Hct MCV MCH MCHC RDW Plt Count MPV Neut % (Auto) Lymph % (Auto) [place] % (Auto) Eos % (Auto) Baso % (Auto) Neut # Lymph # [place] # Eos # Baso # Differential Comment Sodium 132 Potassium 3.6 Chloride 100 Carbon Dioxide 26 Anion Gap 10 BUN 9 Creatinine 0.8 Est GFR ( Amer) > 60 Est GFR (Non-Af Amer) > 60 Random Glucose 115 H Calcium 7.4 L Total Bilirubin 0.5 AST 34 ALT 17 Alkaline Phosphatase 48 Total Protein 5.3 L Albumin 2.3 L Globulin 3.0 Albumin/Globulin Ratio 0.8 L Assessment & Plan (1) Fever Assessment and Plan: PANCULTURES. ESR,CRP. bLOOD CULTURES 2 SETS . ua URINE CULTURES sOURCE OF FEVER MOST LIKELY BILATERAL LOWER LOBE PNEUMONIA ?ASPIRATION/HAP DC iv AZACTAM ?DRUG FEVER. sTART iv tYGACIL 100 MG 1 DOSE 12/27 fOLLOWED BY 50 MG EVERY 12 HOURLY STAT DOSE OF AMIKACIN 1000MG X1 AFTER BLOOD CULTURES. fOLLOW-UP cbc WITH DIFFERENTIAL fOLLOW-UP BLOOD CULTURES. Status: Acute (2) Pneumonia Assessment and Plan: as above. Patient started on IV Tygacil Given one dose of amikacin 1 g. 12/27 to cover for Pseudomonas and ESBL Enterobacteciae.. Status: Suspected (3) Small bowel obstruction Assessment and Plan: patient S/P exploratory laparotomy with lysis of adhesions/small bowel resection and anastomosis 12/21/16. wbc 4.1, HEMOGLOBIN 7.6 LOW PLATELETS 135. CREATININE 0.8/bun 9 PATIENT ON iv AZACTAM NOTED.. Status: Acute (4) COPD exacerbation Status: Acute Priority: High (5) Diabetes mellitus Status: Chronic Priority: Low (6) Hypertension Status: Chronic Priority: Low (7) Anemia Assessment and Plan: H&H 7.6/23.2 hematocrit Patient for blood transfusion 1 unit overnight. Status: Acute
[2016-12-27] MEDS: Mupirocin 2% Ointment (NASAL) NAS SCH ×2 (13:58→19:35)
--- NOTE | 2016-12-27 15:54 | CP.PCM.PN ---
Subjective - Date & Time of Evaluation Date of Evaluation: 12/27/16 Time of Evaluation: 15:48 - Subjective Subjective: Dr. Cano Pt seen and examined. Resting comfortably in bed. Patient was tolerating CLD, but later had an episode of vomiting. Pt is passing flatus and per nursing did have BM. Objective - Vital Signs/Intake and Output Vital Signs (last 24 hours): Temp Pulse Resp BP Pulse Ox 98.5 F 85 22 122/55 L 97 12/27/16 11:30 12/27/16 11:30 12/27/16 11:30 12/27/16 11:30 12/27/16 11:30 Intake and Output: 12/27/16 12/27/16 06:59 18:59 Intake Total 740 Output Total 750 Balance -10 - Medications Medications: Current Medications Acetaminophen (Tylenol 325 Mg Supp) 325 mg [place] Q6 PRN PRN Reason: Fever >100.4 F Last Admin: 12/26/16 20:45 Dose: 325 mg Acetylcysteine (Acetylcysteine 20%) 4 ml INH RQ6 [facility] Last Admin: 12/27/16 13:22 Dose: Not Given Albuterol/Ipratropium (Duoneb 3 Mg/0.5 Mg (3 Ml) Ud) 3 ml INH RQ6 [facility] Last Admin: 12/27/16 13:22 Dose: Not Given Benzocaine/Menthol (Cepacol Sore Throat) 1 jacquelyn MT Q2H PRN PRN Reason: Sore Throat Last Admin: 12/25/16 13:32 Dose: 1 jacquelyn Carbidopa/Levodopa (Sinemet) 1 tab PO Q8 [facility] Last Admin: 12/27/16 13:57 Dose: Not Given Diltiazem HCl (Cardizem Cd) 300 mg PO DAILY [facility] Last Admin: 12/27/16 11:45 Dose: Not Given Emollient Ointment (Vaseline Oint) 5 gm TOP BID PRN PRN Reason: Dry skin Last Admin: 12/21/16 01:28 Dose: 5 gm Heparin Sodium (Porcine) (Heparin) 5,000 units SC Q12 [facility] Last Admin: 12/27/16 13:50 Dose: 5,000 units Tigecycline 50 mg/ Sodium (Chloride) 100 mls @ 100 mls/hr IVPB Q12H [facility] Last Admin: 12/27/16 13:34 Dose: 100 mls/hr Lactobacillus Acidophilus (Bacid Acidophilus) 1 cap PO BID [facility] Last Admin: 12/27/16 11:45 Dose: Not Given Losartan Potassium (Cozaar) 100 mg PO DAILY [facility] Last Admin: 12/27/16 11:45 Dose: Not Given Morphine Sulfate (Morphine) 2 mg IVP Q4 PRN PRN Reason: Pain, moderate (4-7) Last Admin: 12/27/16 05:02 Dose: 2 mg Mupirocin (Bactroban 2% Nasal) 0.5 gm VIRAJ BID [facility] Stop: 12/31/16 10:01 Last Admin: 12/27/16 13:58 Dose: 0.5 gm Neomycin/Polymyxin/Hydrocortisone (Cortisporin Otic Soln) 2 drop AU QID [facility] Last Admin: 12/27/16 13:59 Dose: 2 drop Nitroglycerin (Nitro-Bid 2% Oint) 1 ea TOP Q6 [facility] Last Admin: 12/27/16 13:42 Dose: 1 ea Ondansetron HCl (Zofran Inj) 4 mg IVP Q4 PRN PRN Reason: Nausea/Vomiting Last Admin: 12/27/16 11:47 Dose: 4 mg Pantoprazole Sodium (Protonix Inj) 40 mg IVP DAILY [facility] Last Admin: 12/27/16 11:34 Dose: 40 mg Phenol/Menthol (Phenaseptic 1.4% Throat [place]) 0 ml MT Q2H PRN PRN Reason: Sore Throat Last Admin: 12/24/16 10:54 Dose: 1 spr Rosuvastatin Calcium (Crestor) 5 mg PO HS [facility] Last Admin: 12/26/16 23:02 Dose: 5 mg - Labs Labs: 12/27/16 07:00 12/27/16 07:00 PT 12.6 SECONDS (9.7-12.2) H 12/21/16 11:39 INR 1.1 12/21/16 11:39 APTT 25 SECONDS (21-34) 12/21/16 11:39 - Constitutional Appears: Non-toxic, No Acute Distress - Head Exam Head Exam: ATRAUMATIC, NORMOCEPHALIC - Eye Exam Eye Exam: EOMI - ENT Exam ENT Exam: Mucous Membranes Moist - Respiratory Exam Respiratory Exam: NORMAL BREATHING PATTERN. absent: Accessory Muscle Use, Respiratory Distress - GI/Abdominal Exam GI & Abdominal Exam: Soft. absent: Distended, Firm, Guarding, Rigid, Tenderness , Mass, Rebound Additional comments: dressing in place C/D/I - Extremities Exam Extremities Exam: absent: Calf Tenderness, Pedal Edema - Neurological Exam Neurological Exam: Alert, Awake - Psychiatric Exam Psychiatric exam: Normal Affect, Normal Mood Assessment and Plan - Assessment and Plan (Free Text) Assessment: 86F w. SBO s/p ex-lap w. small bowel resection and anastomosis, POD#6 -c/w CLD -serial abd exams -continue to monitor bowel fxn -c/w current medical management -d/w attending Matthew PGY2
--- NOTE | 2016-12-27 22:09 | CP.PCM.PN ---
Subjective - Date & Time of Evaluation Date of Evaluation: 12/27/16 Time of Evaluation: 11:19 - Subjective Subjective: Pt seen and examined. still weak and congested, prefres to keep her eyes closed Resting comfortably in bed. Patient was tolerating CLD, but later had an episode of vomiting. Pt is passing flatus and per nursing did have BM. Objective - Vital Signs/Intake and Output Vital Signs (last 24 hours): Temp Pulse Resp BP Pulse Ox 97.6 F 90 18 122/68 93 L 12/27/16 22:00 12/27/16 22:00 12/27/16 22:00 12/27/16 22:00 12/27/16 16:00 Intake and Output: 12/27/16 12/28/16 18:59 06:59 Intake Total 280 0 Output Total 500 Balance -220 0 - Medications Medications: Current Medications Acetaminophen (Tylenol 325 Mg Supp) 325 mg [place] Q6 PRN PRN Reason: Fever >100.4 F Last Admin: 12/26/16 20:45 Dose: 325 mg Acetylcysteine (Acetylcysteine 20%) 4 ml INH RQ6 [facility] Last Admin: 12/27/16 19:56 Dose: 4 ml Albuterol/Ipratropium (Duoneb 3 Mg/0.5 Mg (3 Ml) Ud) 3 ml INH RQ6 [facility] Last Admin: 12/27/16 19:56 Dose: 3 ml Benzocaine/Menthol (Cepacol Sore Throat) 1 jacquelyn MT Q2H PRN PRN Reason: Sore Throat Last Admin: 12/25/16 13:32 Dose: 1 jacquelyn Carbidopa/Levodopa (Sinemet) 1 tab PO Q8 [facility] Last Admin: 12/27/16 22:01 Dose: 1 tab Diltiazem HCl (Cardizem Cd) 300 mg PO DAILY [facility] Last Admin: 12/27/16 11:45 Dose: Not Given Emollient Ointment (Vaseline Oint) 5 gm TOP BID PRN PRN Reason: Dry skin Last Admin: 12/21/16 01:28 Dose: 5 gm Heparin Sodium (Porcine) (Heparin) 5,000 units SC Q12 [facility] Last Admin: 12/27/16 21:59 Dose: 5,000 units Tigecycline 50 mg/ Sodium (Chloride) 100 mls @ 100 mls/hr IVPB Q12H [facility] Last Admin: 12/27/16 13:34 Dose: 100 mls/hr Lactobacillus Acidophilus (Bacid Acidophilus) 1 cap PO BID [facility] Last Admin: 12/27/16 19:35 Dose: 1 cap Losartan Potassium (Cozaar) 100 mg PO DAILY [facility] Last Admin: 12/27/16 11:45 Dose: Not Given Morphine Sulfate (Morphine) 2 mg IVP Q4 PRN PRN Reason: Pain, moderate (4-7) Last Admin: 12/27/16 05:02 Dose: 2 mg Mupirocin (Bactroban 2% Nasal) 0.5 gm VIRAJ BID [facility] Stop: 12/31/16 10:01 Last Admin: 12/27/16 19:35 Dose: 0.5 gm Neomycin/Polymyxin/Hydrocortisone (Cortisporin Otic Soln) 2 drop AU QID [facility] Last Admin: 12/27/16 22:00 Dose: Not Given Nitroglycerin (Nitro-Bid 2% Oint) 1 ea TOP Q6 [facility] Last Admin: 12/27/16 19:27 Dose: Not Given Ondansetron HCl (Zofran Inj) 4 mg IVP Q4 PRN PRN Reason: Nausea/Vomiting Last Admin: 12/27/16 11:47 Dose: 4 mg Pantoprazole Sodium (Protonix Inj) 40 mg IVP DAILY [facility] Last Admin: 12/27/16 11:34 Dose: 40 mg Phenol/Menthol (Phenaseptic 1.4% Throat [place]) 0 ml MT Q2H PRN PRN Reason: Sore Throat Last Admin: 12/24/16 10:54 Dose: 1 spr Rosuvastatin Calcium (Crestor) 5 mg PO HS [facility] Last Admin: 12/27/16 21:59 Dose: 5 mg - Labs Labs: 12/27/16 07:00 12/27/16 07:00 PT 12.6 SECONDS (9.7-12.2) H 12/21/16 11:39 INR 1.1 12/21/16 11:39 APTT 25 SECONDS (21-34) 12/21/16 11:39 - Constitutional Appears: No Acute Distress - Head Exam Head Exam: ATRAUMATIC, NORMAL INSPECTION, NORMOCEPHALIC - Eye Exam Eye Exam: EOMI, Normal appearance, PERRL Pupil Exam: NORMAL ACCOMODATION, PERRL - ENT Exam ENT Exam: Mucous Membranes Moist, Normal Exam - Respiratory Exam Respiratory Exam: Clear to Ausculation Bilateral, NORMAL BREATHING PATTERN - Cardiovascular Exam Cardiovascular Exam: REGULAR RHYTHM, +S1, +S2. absent: Murmur - GI/Abdominal Exam GI & Abdominal Exam: Soft, Normal Bowel Sounds. absent: Tenderness Assessment and Plan (1) Abdominal pain Status: Acute (2) Small bowel obstruction Status: Acute (3) Diabetes mellitus Status: Chronic (4) Hypertension Status: Chronic - Assessment and Plan (Free Text) Plan: on antibiotics tagacyl, gentamycin
[2016-12-28] MEDS: Nitroglycerin 2% Ointment Foilpak UD TOP SCH (00:31)
[2016-12-28] MEDS: Acetylcysteine 20% Inhal Soln (4ml) INH SCH ×3 (01:40→18:55)
[2016-12-28] MEDS: Albuterol-Ipratrop 3 mg / 0.5 (3 ml) UD INH SCH ×3 (01:40→18:55)
[2016-12-28 08:23] LABS: BASO % 0.3 % (0.0-2.0); EOS # 0.1 K/uL (0.0-0.7); EOS % 1.6 % (0.0-4.0); HEMATOCRIT 26.3 % (34.0-47.0); LYMPH # 0.9 K/uL (1.0-4.3); LYMPH % 14.3 % (20.0-40.0); MEAN CELL VOLUME 81.8 fL (81.0-99.0); MEAN CORPUSCULAR HEMOGLOBIN 26.9 pg (27.0-31.0); MEAN CORPUSCULAR HGB CONC 32.9 g/dL (33.0-37.0); MEAN PLATELET VOLUME 8.3 fL (7.2-11.7); MONO # 0.5 K/uL (0.0-0.8); MONO % 8.7 % (0.0-10.0); NRBC % 0.1 % (0.0-2.0); RED CELL DISTRIBUTION WIDTH 15.4 % (11.5-14.5); WHITE BLOOD COUNT 6.3 K/uL (4.8-10.8)
[2016-12-28 08:29] LABS: CHLORIDE 101 mmol/L (98-107); POTASSIUM 3.4 mmol/L (3.6-5.2); SODIUM 134 mmol/L (132-148)
[2016-12-28 08:39] LABS: BILIRUBIN,TOTAL 0.5 mg/dL (0.2-1.3); GFR AFRICAN-AMERICAN > 60
[2016-12-28 08:40] LABS: ALB/GLOB RATIO 0.7 (1.0-2.1); ALKALINE PHOSPHATASE 48 U/L (38-126); ALT/SGPT 14 U/L (9-52); AST/SGOT 18 U/L (14-36); BLOOD UREA NITROGEN 15 mg/dL (7-17); CALCIUM 7.8 mg/dl (8.6-10.4); CARBON DIOXIDE 26 mmol/L (22-30); GLUCOSE,RANDOM 82 mg/dL (65-105); TOTAL PROTEIN 5.3 g/dL (6.3-8.3)
--- NOTE | 2016-12-28 20:19 | CON ---
DATE: 12/28/2016 ROOM: #556. INFECTIOUS DISEASE FOLLOWUP: The patient presently awake, but weak. Complains of some abdominal dis comfort. Less short of breath. REVIEW OF SYSTEMS: As noted: RESPIRATORY: Mild respiratory distress. CARDIOVASCULAR: Denies any chest pains or palpitations. GASTROINTESTINAL: bloating, but denies any discomfort. GENITOURINARY: Has a Lewis catheter in place draining ernesto colored urine. CENTRAL NERVOUS SYSTEM: Awake, alert. PHYSICAL EXAMINATION: GENERAL: The patient is an elderly female, not in any acute distress. VITAL SIGNS: Stable. LUNGS: Diminished breath sounds at the bases, few rhonchi. CARDIOVASCULAR SYSTEM: S1, S2, no murmur or gallop. ABDOMEN: Soft, hypoactive bowel sounds, no tenderness elicited. EXTREMITIES: No cyanosis, clubbing or edema. CENTRAL NERVOUS SYSTEM: Awake, alert. Moves all extremities. LABORATORY DATA: Noted 12/27, WBC 4.1, H and H of 7.6 and 23.2, platelets 135. Creatinine 0.8, BUN o f 9. Liver function tests normal. Chest x-ray on 12/26, right PICC line in place, moderate venous co ngestion, persistent bibasilar airspace opacities and small left pleural effusion. MEDICATIONS: Presently on IV Tygacil 50 mg q. 12 hourly. The patient received 1 unit of blood yesterday, that is on 12/27. Presently hemoglobin 8.7, WBC 6.3, and platelets 182. Urine output has been stable from this a.m. Morning shift it was 400 mL. IMPRESSION: 1. New fever, source most likely pneumonia, probably aspiration. 2. Status post exploratory laparotomy and lysis of adhesions, status post small-bowel obstruction. 3. Anemia, probably related to anemia of chronic disease. PLAN: Continue to monitor H and H. Repeat CBC with diff at 6:00 p.m. as reported. Continue IV Tygac il 50 mg q. 12 hourly for now. Pulmonary toilet as prescribed by pulmonary and PMD. We will follow along with you. Thank you very much for allowing me to participate in the care of your patient. Laquita Dyer MD cc: [id number] TT: 12/28/2016 20:18:29 Confirmation # [id number] Dictation # [id number]
[2016-12-28] MEDS: Neomycin/Polymyxin/Hydrocort Otic Soln BOTTLE AU SCH (21:32)
--- NOTE | 2016-12-28 23:10 | CP.PCM.PN ---
Subjective - Date & Time of Evaluation Date of Evaluation: 12/28/16 Time of Evaluation: 11:27 - Subjective Subjective: Pt seen & evaluayed decreased cough, dec shortness of breath, on PT, rehab Objective - Vital Signs/Intake and Output Vital Signs (last 24 hours): Temp Pulse Resp BP Pulse Ox 98.3 F 82 20 135/70 93 L 12/28/16 00:05 12/28/16 00:05 12/28/16 00:05 12/28/16 00:05 12/27/16 16:00 - Medications Medications: Current Medications Acetaminophen (Tylenol 325 Mg Supp) 325 mg [place] Q6 PRN PRN Reason: Fever >100.4 F Last Admin: 12/26/16 20:45 Dose: 325 mg Acetylcysteine (Acetylcysteine 20%) 4 ml INH RQ6 [facility] Last Admin: 12/28/16 18:55 Dose: 4 ml Albuterol/Ipratropium (Duoneb 3 Mg/0.5 Mg (3 Ml) Ud) 3 ml INH RQ6 [facility] Last Admin: 12/28/16 18:55 Dose: 3 ml Benzocaine/Menthol (Cepacol Sore Throat) 1 jacquelyn MT Q2H PRN PRN Reason: Sore Throat Last Admin: 12/25/16 13:32 Dose: 1 jacquelyn Carbidopa/Levodopa (Sinemet) 1 tab PO Q8 [facility] Last Admin: 12/28/16 21:31 Dose: 1 tab Diltiazem HCl (Cardizem Cd) 300 mg PO DAILY [facility] Last Admin: 12/27/16 11:45 Dose: Not Given Emollient Ointment (Vaseline Oint) 5 gm TOP BID PRN PRN Reason: Dry skin Last Admin: 12/21/16 01:28 Dose: 5 gm Guaifenesin (Mucinex [place]) 600 mg PO BID [facility] Heparin Sodium (Porcine) (Heparin) 5,000 units SC Q12 [facility] Last Admin: 12/28/16 21:31 Dose: 5,000 units Tigecycline 50 mg/ Sodium (Chloride) 100 mls @ 100 mls/hr IVPB Q12H [facility] Last Admin: 12/28/16 00:32 Dose: 100 mls/hr Lactobacillus Acidophilus (Bacid Acidophilus) 1 cap PO BID [facility] Last Admin: 12/27/16 19:35 Dose: 1 cap Losartan Potassium (Cozaar) 100 mg PO DAILY [facility] Last Admin: 12/27/16 11:45 Dose: Not Given Morphine Sulfate (Morphine) 2 mg IVP Q4 PRN PRN Reason: Pain, moderate (4-7) Last Admin: 12/27/16 05:02 Dose: 2 mg Mupirocin (Bactroban 2% Nasal) 0.5 gm VIRAJ BID [facility] Stop: 12/31/16 10:01 Last Admin: 12/27/16 19:35 Dose: 0.5 gm Neomycin/Polymyxin/Hydrocortisone (Cortisporin Otic Soln) 2 drop AU QID [facility] Last Admin: 12/28/16 21:32 Dose: 2 drop Nitroglycerin (Nitro-Bid 2% Oint) 1 ea TOP Q6 [facility] Last Admin: 12/28/16 00:31 Dose: 1 ea Ondansetron HCl (Zofran Inj) 4 mg IVP Q4 PRN PRN Reason: Nausea/Vomiting Last Admin: 12/27/16 11:47 Dose: 4 mg Pantoprazole Sodium (Protonix Inj) 40 mg IVP DAILY [facility] Last Admin: 12/27/16 11:34 Dose: 40 mg Phenol/Menthol (Phenaseptic 1.4% Throat [place]) 0 ml MT Q2H PRN PRN Reason: Sore Throat Last Admin: 12/24/16 10:54 Dose: 1 spr Rosuvastatin Calcium (Crestor) 5 mg PO HS [facility] Last Admin: 12/28/16 21:31 Dose: 5 mg - Labs Labs: 12/28/16 04:00 12/28/16 04:00 PT 12.6 SECONDS (9.7-12.2) H 12/21/16 11:39 INR 1.1 12/21/16 11:39 APTT 25 SECONDS (21-34) 12/21/16 11:39 - Constitutional Appears: No Acute Distress - Head Exam Head Exam: ATRAUMATIC, NORMAL INSPECTION, NORMOCEPHALIC - Eye Exam Eye Exam: EOMI, Normal appearance, PERRL Pupil Exam: NORMAL ACCOMODATION, PERRL - Respiratory Exam Respiratory Exam: Clear to Ausculation Bilateral, NORMAL BREATHING PATTERN - Cardiovascular Exam Cardiovascular Exam: REGULAR RHYTHM, +S1, +S2. absent: Murmur - GI/Abdominal Exam GI & Abdominal Exam: Soft, Normal Bowel Sounds. absent: Tenderness Assessment and Plan (1) Abdominal pain Status: Acute (2) Small bowel obstruction Status: Acute (3) Diabetes mellitus Status: Chronic (4) Hypertension Status: Chronic
--- NOTE | 2016-12-28 23:43 | CP.PCM.PN ---
Subjective - Date & Time of Evaluation Date of Evaluation: 12/28/16 Time of Evaluation: 23:42 - Subjective Subjective: patient seen and examined. Infectious disease follow-up 12/28/16 Dictated. Dictation #[id number].see rreports. Objective - Vital Signs/Intake and Output Vital Signs (last 24 hours): Temp Pulse Resp BP Pulse Ox 98.9 F 84 16 115/64 95 12/28/16 16:00 12/28/16 16:00 12/28/16 16:00 12/28/16 16:00 12/28/16 16:00 Intake and Output: 12/28/16 12/29/16 18:59 06:59 Intake Total 400 Output Total 400 Balance 0 - Medications Medications: Current Medications Acetaminophen (Tylenol 325 Mg Supp) 325 mg OR Q6 PRN PRN Reason: Fever >100.4 F Last Admin: 12/26/16 20:45 Dose: 325 mg Acetylcysteine (Acetylcysteine 20%) 4 ml INH RQ6 [facility] Last Admin: 12/28/16 18:55 Dose: 4 ml Albuterol/Ipratropium (Duoneb 3 Mg/0.5 Mg (3 Ml) Ud) 3 ml INH RQ6 [facility] Last Admin: 12/28/16 18:55 Dose: 3 ml Benzocaine/Menthol (Cepacol Sore Throat) 1 jacquelyn MT Q2H PRN PRN Reason: Sore Throat Last Admin: 12/25/16 13:32 Dose: 1 jacquelyn Carbidopa/Levodopa (Sinemet) 1 tab PO Q8 [facility] Last Admin: 12/28/16 21:31 Dose: 1 tab Diltiazem HCl (Cardizem Cd) 300 mg PO DAILY [facility] Last Admin: 12/27/16 11:45 Dose: Not Given Emollient Ointment (Vaseline Oint) 5 gm TOP BID PRN PRN Reason: Dry skin Last Admin: 12/21/16 01:28 Dose: 5 gm Guaifenesin (Mucinex La) 600 mg PO BID [facility] Heparin Sodium (Porcine) (Heparin) 5,000 units SC Q12 [facility] Last Admin: 12/28/16 21:31 Dose: 5,000 units Tigecycline 50 mg/ Sodium (Chloride) 100 mls @ 100 mls/hr IVPB Q12H [facility] Last Admin: 12/28/16 00:32 Dose: 100 mls/hr Lactobacillus Acidophilus (Bacid Acidophilus) 1 cap PO BID [facility] Last Admin: 12/27/16 19:35 Dose: 1 cap Losartan Potassium (Cozaar) 100 mg PO DAILY [facility] Last Admin: 12/27/16 11:45 Dose: Not Given Morphine Sulfate (Morphine) 2 mg IVP Q4 PRN PRN Reason: Pain, moderate (4-7) Last Admin: 12/27/16 05:02 Dose: 2 mg Mupirocin (Bactroban 2% Nasal) 0.5 gm VIRAJ BID [facility] Stop: 12/31/16 10:01 Last Admin: 12/27/16 19:35 Dose: 0.5 gm Neomycin/Polymyxin/Hydrocortisone (Cortisporin Otic Soln) 2 drop AU QID [facility] Last Admin: 12/28/16 21:32 Dose: 2 drop Nitroglycerin (Nitro-Bid 2% Oint) 1 ea TOP Q6 [facility] Last Admin: 12/28/16 00:31 Dose: 1 ea Ondansetron HCl (Zofran Inj) 4 mg IVP Q4 PRN PRN Reason: Nausea/Vomiting Last Admin: 12/27/16 11:47 Dose: 4 mg Pantoprazole Sodium (Protonix Inj) 40 mg IVP DAILY [facility] Last Admin: 12/27/16 11:34 Dose: 40 mg Phenol/Menthol (Phenaseptic 1.4% Throat [place]) 0 ml MT Q2H PRN PRN Reason: Sore Throat Last Admin: 12/24/16 10:54 Dose: 1 spr Rosuvastatin Calcium (Crestor) 5 mg PO HS [facility] Last Admin: 12/28/16 21:31 Dose: 5 mg - Labs Labs: 12/28/16 04:00 12/28/16 04:00 PT 12.6 SECONDS (9.7-12.2) H 12/21/16 11:39 INR 1.1 12/21/16 11:39 APTT 25 SECONDS (21-34) 12/21/16 11:39
[2016-12-29] MEDS: Nitroglycerin 2% Ointment Foilpak UD TOP SCH ×8 (00:44→23:42)
[2016-12-29] MEDS: Albuterol-Ipratrop 3 mg / 0.5 (3 ml) UD INH SCH ×4 (01:47→13:20)
[2016-12-29] MEDS: Acetylcysteine 20% Inhal Soln (4ml) INH SCH ×5 (01:47→19:39)
[2016-12-29 09:01] LABS: BASO % 0.3 % (0.0-2.0); EOS # 0.1 K/uL (0.0-0.7); EOS % 1.6 % (0.0-4.0); HEMATOCRIT 27.7 % (34.0-47.0); LYMPH # 1.3 K/uL (1.0-4.3); LYMPH % 14.7 % (20.0-40.0); MEAN CELL VOLUME 81.3 fL (81.0-99.0); MEAN CORPUSCULAR HEMOGLOBIN 26.8 pg (27.0-31.0); MONO # 0.6 K/uL (0.0-0.8); MONO % 7.3 % (0.0-10.0); RED CELL DISTRIBUTION WIDTH 15.6 % (11.5-14.5); WHITE BLOOD COUNT 8.8 K/uL (4.8-10.8)
[2016-12-29 09:04] LABS: CHLORIDE 101 mmol/L (98-107)
[2016-12-29 09:05] LABS: POTASSIUM 3.6 mmol/L (3.6-5.2); SODIUM 135 mmol/L (132-148)
[2016-12-29 09:08] LABS: ALB/GLOB RATIO 0.6 (1.0-2.1); ALKALINE PHOSPHATASE 56 U/L (38-126); ALT/SGPT 16 U/L (9-52); AST/SGOT 23 U/L (14-36); BILIRUBIN,TOTAL 0.4 mg/dL (0.2-1.3); BLOOD UREA NITROGEN 16 mg/dL (7-17); CALCIUM 8.2 mg/dl (8.6-10.4); CARBON DIOXIDE 25 mmol/L (22-30); GFR AFRICAN-AMERICAN > 60; GLUCOSE,RANDOM 97 mg/dL (65-105); TOTAL PROTEIN 5.5 g/dL (6.3-8.3)
[2016-12-29] MEDS: Neomycin/Polymyxin/Hydrocort Otic Soln BOTTLE AU SCH ×4 (10:03→22:25)
[2016-12-29] MEDS: guaiFENesin 600 mg ER Tab PO SCH ×2 (10:03→18:17)
[2016-12-29] MEDS: diltiaZEM 300 mg/24 Hours CD Cap PO SCH (10:03)
[2016-12-29] MEDS: Lactobacillus Acidophilus 500 MU Cap PO SCH ×2 (10:03→18:17)
[2016-12-29] MEDS: Mupirocin 2% Ointment (NASAL) NAS SCH ×2 (10:04→18:17)
--- NOTE | 2016-12-29 10:41 | CP.PCM.PN ---
Subjective - Date & Time of Evaluation Date of Evaluation: 12/29/16 Time of Evaluation: 10:39 - Subjective Subjective: Surgery: Dr. Cano Pt seen and examined. Resting comfortably in bed. Pain controlled. Tolerating CLD, no N/V. BM x 2 yesterday. Objective - Vital Signs/Intake and Output Vital Signs (last 24 hours): Temp Pulse Resp BP Pulse Ox 99 F 82 16 154/67 H 93 L 12/29/16 00:00 12/29/16 00:00 12/29/16 00:00 12/29/16 06:00 12/29/16 00:00 Intake and Output: 12/29/16 12/29/16 06:59 18:59 Intake Total 600 Output Total 650 Balance -50 - Medications Medications: Current Medications Acetaminophen (Tylenol 325 Mg Supp) 325 mg [place] Q6 PRN PRN Reason: Fever >100.4 F Last Admin: 12/26/16 20:45 Dose: 325 mg Acetylcysteine (Acetylcysteine 20%) 4 ml INH RQ6 [facility] Last Admin: 12/29/16 07:14 Dose: 4 ml Albuterol/Ipratropium (Duoneb 3 Mg/0.5 Mg (3 Ml) Ud) 3 ml INH RQ6 [facility] Last Admin: 12/29/16 07:14 Dose: 3 ml Benzocaine/Menthol (Cepacol Sore Throat) 1 jacquelyn MT Q2H PRN PRN Reason: Sore Throat Last Admin: 12/25/16 13:32 Dose: 1 jacquelyn Carbidopa/Levodopa (Sinemet) 1 tab PO Q8 [facility] Last Admin: 12/29/16 06:02 Dose: 1 tab Diltiazem HCl (Cardizem Cd) 300 mg PO DAILY [facility] Last Admin: 12/29/16 10:03 Dose: 300 mg Emollient Ointment (Vaseline Oint) 5 gm TOP BID PRN PRN Reason: Dry skin Last Admin: 12/21/16 01:28 Dose: 5 gm Guaifenesin (Mucinex La) 600 mg PO BID [facility] Last Admin: 12/29/16 10:03 Dose: 600 mg Tigecycline 50 mg/ Sodium (Chloride) 100 mls @ 100 mls/hr IVPB Q12H [facility] Last Admin: 12/29/16 01:06 Dose: 100 mls/hr Lactobacillus Acidophilus (Bacid Acidophilus) 1 cap PO BID [facility] Last Admin: 12/29/16 10:03 Dose: 1 cap Losartan Potassium (Cozaar) 100 mg PO DAILY [facility] Last Admin: 12/29/16 10:04 Dose: 100 mg Morphine Sulfate (Morphine) 2 mg IVP Q4 PRN PRN Reason: Pain, moderate (4-7) Last Admin: 12/29/16 10:18 Dose: 2 mg Mupirocin (Bactroban 2% Nasal) 0.5 gm VIRAJ BID [facility] Stop: 12/31/16 10:01 Last Admin: 12/29/16 10:04 Dose: 0.5 gm Neomycin/Polymyxin/Hydrocortisone (Cortisporin Otic Soln) 2 drop AU QID [facility] Last Admin: 12/29/16 10:03 Dose: 2 drop Nitroglycerin (Nitro-Bid 2% Oint) 1 ea TOP Q6 [facility] Last Admin: 12/29/16 06:02 Dose: 1 ea Ondansetron HCl (Zofran Inj) 4 mg IVP Q4 PRN PRN Reason: Nausea/Vomiting Last Admin: 12/27/16 11:47 Dose: 4 mg Pantoprazole Sodium (Protonix Inj) 40 mg IVP DAILY [facility] Last Admin: 12/29/16 10:03 Dose: 40 mg Phenol/Menthol (Phenaseptic 1.4% Throat [place]) 0 ml MT Q2H PRN PRN Reason: Sore Throat Last Admin: 12/24/16 10:54 Dose: 1 spr Rosuvastatin Calcium (Crestor) 5 mg PO HS [facility] Last Admin: 12/28/16 21:31 Dose: 5 mg - Labs Labs: 12/29/16 08:09 12/29/16 08:09 PT 12.6 SECONDS (9.7-12.2) H 12/21/16 11:39 INR 1.1 12/21/16 11:39 APTT 25 SECONDS (21-34) 12/21/16 11:39 - Constitutional Appears: Non-toxic, No Acute Distress - Head Exam Head Exam: ATRAUMATIC, NORMOCEPHALIC - Eye Exam Eye Exam: EOMI Pupil Exam: NORMAL ACCOMODATION - ENT Exam ENT Exam: Mucous Membranes Moist - Neck Exam Neck Exam: Full ROM - Respiratory Exam Respiratory Exam: NORMAL BREATHING PATTERN. absent: Accessory Muscle Use, Respiratory Distress - GI/Abdominal Exam GI & Abdominal Exam: Soft. absent: Distended, Firm, Guarding, Rigid, Tenderness , Rebound Additional comments: incisions C/D/I - Extremities Exam Extremities Exam: absent: Calf Tenderness, Pedal Edema - Neurological Exam Neurological Exam: Alert, Awake Assessment and Plan - Assessment and Plan (Free Text) Assessment: 86F w. SBO s/p ex-lap w. small bowel resection and anastomosis, POD#8 -Will advance to FLD -ADAT -encourage ambulation, OOB, and IS use -c/w current medical management -d/w attending Vidalitis PGY2
--- NOTE | 2016-12-29 12:11 | CP.PCM.PN ---
Subjective - Date & Time of Evaluation Date of Evaluation: 12/29/16 Time of Evaluation: 11:27 - Subjective Subjective: Pt is improved, remain on antibiotics, continue PT, diet Objective - Vital Signs/Intake and Output Vital Signs (last 24 hours): Temp Pulse Resp BP Pulse Ox 99 F 82 16 154/67 H 93 L 12/29/16 00:00 12/29/16 00:00 12/29/16 00:00 12/29/16 06:00 12/29/16 00:00 Intake and Output: 12/29/16 12/29/16 06:59 18:59 Intake Total 600 Output Total 650 Balance -50 - Medications Medications: Current Medications Acetaminophen (Tylenol 325 Mg Supp) 325 mg [place] Q6 PRN PRN Reason: Fever >100.4 F Last Admin: 12/26/16 20:45 Dose: 325 mg Acetylcysteine (Acetylcysteine 20%) 4 ml INH RQ6 [facility] Last Admin: 12/29/16 07:14 Dose: 4 ml Albuterol/Ipratropium (Duoneb 3 Mg/0.5 Mg (3 Ml) Ud) 3 ml INH RQ6 [facility] Last Admin: 12/29/16 07:14 Dose: 3 ml Benzocaine/Menthol (Cepacol Sore Throat) 1 jacquelyn MT Q2H PRN PRN Reason: Sore Throat Last Admin: 12/25/16 13:32 Dose: 1 jacquelyn Carbidopa/Levodopa (Sinemet) 1 tab PO Q8 [facility] Last Admin: 12/29/16 06:02 Dose: 1 tab Diltiazem HCl (Cardizem Cd) 300 mg PO DAILY [facility] Last Admin: 12/29/16 10:03 Dose: 300 mg Emollient Ointment (Vaseline Oint) 5 gm TOP BID PRN PRN Reason: Dry skin Last Admin: 12/21/16 01:28 Dose: 5 gm Guaifenesin (Mucinex La) 600 mg PO BID [facility] Last Admin: 12/29/16 10:03 Dose: 600 mg Tigecycline 50 mg/ Sodium (Chloride) 100 mls @ 100 mls/hr IVPB Q12H [facility] Last Admin: 12/29/16 01:06 Dose: 100 mls/hr Lactobacillus Acidophilus (Bacid Acidophilus) 1 cap PO BID [facility] Last Admin: 12/29/16 10:03 Dose: 1 cap Losartan Potassium (Cozaar) 100 mg PO DAILY [facility] Last Admin: 12/29/16 10:04 Dose: 100 mg Morphine Sulfate (Morphine) 2 mg IVP Q4 PRN PRN Reason: Pain, moderate (4-7) Last Admin: 12/29/16 10:18 Dose: 2 mg Mupirocin (Bactroban 2% Nasal) 0.5 gm VIRAJ BID [facility] Stop: 12/31/16 10:01 Last Admin: 12/29/16 10:04 Dose: 0.5 gm Neomycin/Polymyxin/Hydrocortisone (Cortisporin Otic Soln) 2 drop AU QID [facility] Last Admin: 12/29/16 10:03 Dose: 2 drop Nitroglycerin (Nitro-Bid 2% Oint) 1 ea TOP Q6 [facility] Last Admin: 12/29/16 06:02 Dose: 1 ea Ondansetron HCl (Zofran Inj) 4 mg IVP Q4 PRN PRN Reason: Nausea/Vomiting Last Admin: 12/27/16 11:47 Dose: 4 mg Pantoprazole Sodium (Protonix Inj) 40 mg IVP DAILY [facility] Last Admin: 12/29/16 10:03 Dose: 40 mg Phenol/Menthol (Phenaseptic 1.4% Throat [place]) 0 ml MT Q2H PRN PRN Reason: Sore Throat Last Admin: 12/24/16 10:54 Dose: 1 spr Rosuvastatin Calcium (Crestor) 5 mg PO HS [facility] Last Admin: 12/28/16 21:31 Dose: 5 mg - Labs Labs: 12/29/16 08:09 12/29/16 08:09 PT 12.6 SECONDS (9.7-12.2) H 12/21/16 11:39 INR 1.1 12/21/16 11:39 APTT 25 SECONDS (21-34) 12/21/16 11:39 - Constitutional Appears: No Acute Distress - Head Exam Head Exam: ATRAUMATIC, NORMAL INSPECTION, NORMOCEPHALIC - Eye Exam Eye Exam: EOMI, Normal appearance, PERRL Pupil Exam: NORMAL ACCOMODATION, PERRL - Respiratory Exam Respiratory Exam: Clear to Ausculation Bilateral, NORMAL BREATHING PATTERN - Cardiovascular Exam Cardiovascular Exam: REGULAR RHYTHM, +S1, +S2. absent: Murmur - GI/Abdominal Exam GI & Abdominal Exam: Soft, Normal Bowel Sounds. absent: Tenderness - Neurological Exam Neurological Exam: Alert, Awake, CN II-XII Intact, Normal Gait, Oriented x3 Assessment and Plan (1) Abdominal pain Status: Acute (2) Small bowel obstruction Status: Acute (3) Diabetes mellitus Status: Chronic (4) Hypertension Status: Chronic
--- NOTE | 2016-12-29 23:01 | CP.PCM.PN ---
Subjective - Date & Time of Evaluation Date of Evaluation: 12/29/16 Time of Evaluation: 23:01 - Subjective Subjective: AFEBRILE. fEELS WEAK. STARTED ON CLEAR LIQUIDS. WOUND MIDLINE INCISION SITE CLEAN. FAMILY AT BEDSIDE Objective - Vital Signs/Intake and Output Vital Signs (last 24 hours): Temp Pulse Resp BP Pulse Ox 98.9 F 85 20 133/73 93 L 12/29/16 17:33 12/29/16 17:33 12/29/16 17:33 12/29/16 17:33 12/29/16 17:33 Intake and Output: 12/29/16 12/30/16 18:59 06:59 Intake Total 710 Output Total 240 Balance 470 - Medications Medications: Current Medications Acetaminophen (Tylenol 325 Mg Supp) 325 mg [place] Q6 PRN PRN Reason: Fever >100.4 F Last Admin: 12/26/16 20:45 Dose: 325 mg Acetylcysteine (Acetylcysteine 20%) 4 ml INH RQ6 [facility] Last Admin: 12/29/16 19:39 Dose: Not Given Benzocaine/Menthol (Cepacol Sore Throat) 1 jacquelyn MT Q2H PRN PRN Reason: Sore Throat Last Admin: 12/25/16 13:32 Dose: 1 jacquelyn Carbidopa/Levodopa (Sinemet) 1 tab PO Q8 [facility] Last Admin: 12/29/16 22:22 Dose: 1 tab Diltiazem HCl (Cardizem Cd) 300 mg PO DAILY [facility] Last Admin: 12/29/16 10:03 Dose: 300 mg Emollient Ointment (Vaseline Oint) 5 gm TOP BID PRN PRN Reason: Dry skin Last Admin: 12/21/16 01:28 Dose: 5 gm Guaifenesin (Mucinex La) 600 mg PO BID [facility] Last Admin: 12/29/16 18:17 Dose: 600 mg Guaifenesin/Dextromethorphan (Robitussin Dm) 10 ml PO Q4H PRN PRN Reason: Cough and congestion Tigecycline 50 mg/ Sodium (Chloride) 100 mls @ 100 mls/hr IVPB Q12H [facility] Last Admin: 12/29/16 13:39 Dose: 100 mls/hr Lactobacillus Acidophilus (Bacid Acidophilus) 1 cap PO BID [facility] Last Admin: 12/29/16 18:17 Dose: 1 cap Losartan Potassium (Cozaar) 100 mg PO DAILY [facility] Last Admin: 12/29/16 10:04 Dose: 100 mg Morphine Sulfate (Morphine) 2 mg IVP Q4 PRN PRN Reason: Pain, moderate (4-7) Last Admin: 12/29/16 10:18 Dose: 2 mg Mupirocin (Bactroban 2% Nasal) 0.5 gm VIRAJ BID [facility] Stop: 12/31/16 10:01 Last Admin: 12/29/16 18:17 Dose: 0.5 gm Neomycin/Polymyxin/Hydrocortisone (Cortisporin Otic Soln) 2 drop AU QID [facility] Last Admin: 12/29/16 22:25 Dose: 2 drop Nitroglycerin (Nitro-Bid 2% Oint) 1 ea TOP Q6 [facility] Last Admin: 12/29/16 18:17 Dose: 1 ea Ondansetron HCl (Zofran Inj) 4 mg IVP Q4 PRN PRN Reason: Nausea/Vomiting Last Admin: 12/27/16 11:47 Dose: 4 mg Pantoprazole Sodium (Protonix Inj) 40 mg IVP DAILY [facility] Last Admin: 12/29/16 10:03 Dose: 40 mg Phenol/Menthol (Phenaseptic 1.4% Throat [place]) 0 ml MT Q2H PRN PRN Reason: Sore Throat Last Admin: 12/24/16 10:54 Dose: 1 spr Rosuvastatin Calcium (Crestor) 5 mg PO HS [facility] Last Admin: 12/29/16 22:22 Dose: 5 mg - Labs Labs: 12/29/16 08:09 12/29/16 08:09 PT 12.6 SECONDS (9.7-12.2) H 12/21/16 11:39 INR 1.1 12/21/16 11:39 APTT 25 SECONDS (21-34) 12/21/16 11:39 - Constitutional Appears: No Acute Distress - Head Exam Head Exam: NORMAL INSPECTION - Eye Exam Eye Exam: EOMI, PERRL - ENT Exam ENT Exam: Normal Oropharynx - Neck Exam Neck Exam: Normal Inspection - Respiratory Exam Respiratory Exam: Decreased Breath Sounds (BILATERALLY.), Rhonchi (FEW RHONCHI.) - GI/Abdominal Exam GI & Abdominal Exam: Soft, Normal Bowel Sounds - Extremities Exam Extremities Exam: Pedal Edema. absent: Calf Tenderness - Neurological Exam Neurological Exam: Awake, CN II-XII Intact - Psychiatric Exam Psychiatric exam: Normal Mood - Skin Skin Exam: Normal Color, Warm Assessment and Plan (1) Fever Assessment & Plan: CONTINUE iv tYGACIL 100 MG 1 DOSE 12/27 fOLLOWED BY 50 MG EVERY 12 HOURLY LABS REVIEWED. Status: Acute (2) Pneumonia Assessment & Plan: ON IV TYGACIL . F/U CXR Status: Suspected (3) Small bowel obstruction Assessment & Plan: patient S/P exploratory laparotomy with lysis of adhesions/small bowel resection and anastomosis 12/21/16. POD #9 STARTED ON CLD AND TOLERATIG. Status: Acute (4) COPD exacerbation Status: Acute (5) Diabetes mellitus Status: Chronic (6) Hypertension Status: Chronic (7) Anemia Status: Acute
[2016-12-30] MEDS: Acetylcysteine 20% Inhal Soln (4ml) INH SCH ×4 (02:30→19:39)
[2016-12-30] MEDS: Nitroglycerin 2% Ointment Foilpak UD TOP SCH ×3 (05:59→18:38)
[2016-12-30 07:34] LABS: BASO # 0.1 K/uL (0.0-0.2); BASO % 0.8 % (0.0-2.0); EOS # 0.1 K/uL (0.0-0.7); EOS % 0.9 % (0.0-4.0); HEMATOCRIT 27.6 % (34.0-47.0); LYMPH % 8.4 % (20.0-40.0); MEAN CELL VOLUME 81.6 fL (81.0-99.0); MEAN CORPUSCULAR HEMOGLOBIN 26.5 pg (27.0-31.0); MEAN CORPUSCULAR HGB CONC 32.4 g/dL (33.0-37.0); MEAN PLATELET VOLUME 7.8 fL (7.2-11.7); MONO # 0.7 K/uL (0.0-0.8); MONO % 5.6 % (0.0-10.0); NRBC % 0.1 % (0.0-2.0); PLATELET COUNT 321 K/uL (130-400); RED CELL DISTRIBUTION WIDTH 15.5 % (11.5-14.5); WHITE BLOOD COUNT 12.1 K/uL (4.8-10.8)
[2016-12-30 08:03] LABS: CHLORIDE 104 mmol/L (98-107); POTASSIUM 3.5 mmol/L (3.6-5.2); SODIUM 139 mmol/L (132-148)
[2016-12-30 08:05] LABS: ALB/GLOB RATIO 0.7 (1.0-2.1); AST/SGOT 32 U/L (14-36); BILIRUBIN,TOTAL 0.6 mg/dL (0.2-1.3); BLOOD UREA NITROGEN 17 mg/dL (7-17); CARBON DIOXIDE 26 mmol/L (22-30); GFR AFRICAN-AMERICAN > 60; TOTAL PROTEIN 5.6 g/dL (6.3-8.3)
[2016-12-30 08:06] LABS: ALKALINE PHOSPHATASE 57 U/L (38-126); ALT/SGPT 6 U/L (9-52); GLUCOSE,RANDOM 93 mg/dL (65-105)
[2016-12-30] MEDS ORDERED: Potassium Chloride 20 mEq ER Tab PO STA ×2 (09:03→10:51)
[2016-12-30] MEDS: Albuterol-Ipratrop 3 mg / 0.5 (3 ml) UD INH SCH ×3 (09:20→19:39)
[2016-12-30 09:27] LABS: EOSINOPHIL 2 % (0-4); METAMYELOCYTE 1 % (0-0); NEUTROPHIL 76 % (50-75); NUCLEATED RED BLOOD CELL 1 % (0-0); REACTIVE LYMPHOCYTES 1 % (0-0); TOTAL CELLS COUNTED 100
[2016-12-30 09:28] LABS: LARGE PLATELETS PRESENT
[2016-12-30] MEDS: guaiFENesin 600 mg ER Tab PO SCH ×2 (10:52→18:37)
[2016-12-30] MEDS: Neomycin/Polymyxin/Hydrocort Otic Soln BOTTLE AU SCH ×4 (10:56→22:08)
[2016-12-30] MEDS: diltiaZEM 300 mg/24 Hours CD Cap PO SCH (11:00)
[2016-12-30] MEDS: Lactobacillus Acidophilus 500 MU Cap PO SCH ×2 (11:00→19:39)
--- NOTE | 2016-12-30 11:59 | CP.PCM.PN ---
Subjective - Date & Time of Evaluation Date of Evaluation: 12/30/16 Time of Evaluation: 08:30 - Subjective Subjective: SURGERY NOTE FOR DR. CUENCA 86F seen and examined at bedside. Denies pain, nausea, vomiting. She is tolerating liquid diet, request regular diet. Admits to flatus and bowel movements. Objective - Vital Signs/Intake and Output Vital Signs (last 24 hours): Temp Pulse Resp BP Pulse Ox 99.1 F 88 16 160/71 H 94 L 12/30/16 00:00 12/30/16 00:00 12/30/16 06:00 12/30/16 06:00 12/30/16 06:00 Intake and Output: 12/30/16 12/30/16 06:59 18:59 Intake Total 150 Output Total 400 Balance -250 - Medications Medications: Current Medications Acetaminophen (Tylenol 325 Mg Supp) 325 mg [place] Q6 PRN PRN Reason: Fever >100.4 F Last Admin: 12/26/16 20:45 Dose: 325 mg Acetaminophen (Tylenol 325mg Tab) 650 mg PO Q6 PRN PRN Reason: Pain, moderate (4-7) Last Admin: 12/30/16 10:52 Dose: 650 mg Acetaminophen (Tylenol 325mg Tab) 650 mg PO Q6 PRN PRN Reason: Fever >100.4 F Acetylcysteine (Acetylcysteine 20%) 4 ml INH RQ6 [facility] Last Admin: 12/30/16 02:30 Dose: Not Given Albuterol/Ipratropium (Duoneb 3 Mg/0.5 Mg (3 Ml) Ud) 3 ml INH RQ6 [facility] Carbidopa/Levodopa (Sinemet) 1 tab PO Q8 [facility] Last Admin: 12/30/16 05:59 Dose: 1 tab Diltiazem HCl (Cardizem Cd) 300 mg PO DAILY [facility] Last Admin: 12/30/16 11:00 Dose: 300 mg Emollient Ointment (Vaseline Oint) 5 gm TOP BID PRN PRN Reason: Dry skin Last Admin: 12/21/16 01:28 Dose: 5 gm Guaifenesin (Mucinex La) 600 mg PO BID [facility] Last Admin: 12/30/16 10:52 Dose: 600 mg Guaifenesin/Dextromethorphan (Robitussin Dm) 10 ml PO Q4H PRN PRN Reason: Cough and congestion Heparin Sodium (Porcine) (Heparin) 5,000 units SC BID [facility] Last Admin: 12/30/16 11:01 Dose: 5,000 units Tigecycline 50 mg/ Sodium (Chloride) 100 mls @ 100 mls/hr IVPB Q12H [facility] Last Admin: 12/30/16 00:31 Dose: 100 mls/hr Lactobacillus Acidophilus (Bacid Acidophilus) 1 cap PO BID [facility] Last Admin: 12/30/16 11:00 Dose: 1 cap Losartan Potassium (Cozaar) 100 mg PO DAILY [facility] Last Admin: 12/30/16 10:53 Dose: 100 mg Morphine Sulfate (Morphine) 2 mg IVP Q4 PRN PRN Reason: Pain, moderate (4-7) Last Admin: 12/29/16 10:18 Dose: 2 mg Mupirocin (Bactroban 2% Nasal) 0.5 gm VIRAJ BID [facility] Stop: 12/31/16 10:01 Last Admin: 12/29/16 18:17 Dose: 0.5 gm Neomycin/Polymyxin/Hydrocortisone (Cortisporin Otic Soln) 2 drop AU QID [facility] Last Admin: 12/30/16 10:56 Dose: 2 drop Nitroglycerin (Nitro-Bid 2% Oint) 1 ea TOP Q6 [facility] Last Admin: 12/30/16 05:59 Dose: 1 ea Ondansetron HCl (Zofran Inj) 4 mg IVP Q4 PRN PRN Reason: Nausea/Vomiting Last Admin: 12/27/16 11:47 Dose: 4 mg Pantoprazole Sodium (Protonix Inj) 40 mg IVP DAILY [facility] Last Admin: 12/30/16 10:53 Dose: 40 mg Phenol/Menthol (Phenaseptic 1.4% Throat [place]) 0 ml MT Q2H PRN PRN Reason: Sore Throat Last Admin: 12/24/16 10:54 Dose: 1 spr Rosuvastatin Calcium (Crestor) 5 mg PO HS [facility] Last Admin: 12/29/16 22:22 Dose: 5 mg - Labs Labs: 12/30/16 07:12 12/30/16 07:12 PT 12.6 SECONDS (9.7-12.2) H 12/21/16 11:39 INR 1.1 12/21/16 11:39 APTT 25 SECONDS (21-34) 12/21/16 11:39 - Constitutional Appears: Non-toxic, No Acute Distress - Respiratory Exam Respiratory Exam: Clear to Ausculation Bilateral, NORMAL BREATHING PATTERN - Cardiovascular Exam Cardiovascular Exam: REGULAR RHYTHM, +S1, +S2 - GI/Abdominal Exam GI & Abdominal Exam: Soft. absent: Distended, Firm, Guarding, Rigid, Tenderness , Rebound - Neurological Exam Neurological Exam: Alert, Awake Assessment and Plan - Assessment and Plan (Free Text) Assessment: 86F w. SBO s/p ex-lap w. small bowel resection and anastomosis, POD#9 -Will advance to reg -encourage ambulation, OOB, and IS use -c/w current medical management Discussed with Dr. Nenita Rangel, PGY1
[2016-12-30] MEDS: Mupirocin 2% Ointment (NASAL) NAS SCH ×2 (13:00→18:38)
--- NOTE | 2016-12-30 14:16 | CP.PCM.PN ---
Subjective - Date & Time of Evaluation Date of Evaluation: 12/30/16 Time of Evaluation: 14:16 - Subjective Subjective: afebrile. tolerating cler liquids advancing to regular diet. denies n/v /diarrhoea. Objective - Vital Signs/Intake and Output Vital Signs (last 24 hours): Temp Pulse Resp BP Pulse Ox 98.7 F 81 20 126/69 95 12/30/16 12:48 12/30/16 12:48 12/30/16 12:48 12/30/16 12:48 12/30/16 12:48 Intake and Output: 12/30/16 12/30/16 06:59 18:59 Intake Total 150 Output Total 400 Balance -250 - Medications Medications: Current Medications Acetaminophen (Tylenol 325 Mg Supp) 325 mg [place] Q6 PRN PRN Reason: Fever >100.4 F Last Admin: 12/26/16 20:45 Dose: 325 mg Acetaminophen (Tylenol 325mg Tab) 650 mg PO Q6 PRN PRN Reason: Pain, moderate (4-7) Last Admin: 12/30/16 10:52 Dose: 650 mg Acetaminophen (Tylenol 325mg Tab) 650 mg PO Q6 PRN PRN Reason: Fever >100.4 F Acetylcysteine (Acetylcysteine 20%) 4 ml INH RQ6 [facility] Last Admin: 12/30/16 09:20 Dose: 4 ml Albuterol/Ipratropium (Duoneb 3 Mg/0.5 Mg (3 Ml) Ud) 3 ml INH RQ6 [facility] Last Admin: 12/30/16 09:20 Dose: 3 ml Carbidopa/Levodopa (Sinemet) 1 tab PO Q8 [facility] Last Admin: 12/30/16 14:08 Dose: 1 tab Diltiazem HCl (Cardizem Cd) 300 mg PO DAILY [facility] Last Admin: 12/30/16 11:00 Dose: 300 mg Emollient Ointment (Vaseline Oint) 5 gm TOP BID PRN PRN Reason: Dry skin Last Admin: 12/21/16 01:28 Dose: 5 gm Guaifenesin (Mucinex La) 600 mg PO BID [facility] Last Admin: 12/30/16 10:52 Dose: 600 mg Guaifenesin/Dextromethorphan (Robitussin Dm) 10 ml PO Q4H PRN PRN Reason: Cough and congestion Heparin Sodium (Porcine) (Heparin) 5,000 units SC BID [facility] Last Admin: 12/30/16 11:01 Dose: 5,000 units Tigecycline 50 mg/ Sodium (Chloride) 100 mls @ 100 mls/hr IVPB Q12H [facility] Last Admin: 12/30/16 14:08 Dose: 100 mls/hr Lactobacillus Acidophilus (Bacid Acidophilus) 1 cap PO BID [facility] Last Admin: 12/30/16 11:00 Dose: 1 cap Losartan Potassium (Cozaar) 100 mg PO DAILY [facility] Last Admin: 12/30/16 10:53 Dose: 100 mg Morphine Sulfate (Morphine) 2 mg IVP Q4 PRN PRN Reason: Pain, moderate (4-7) Last Admin: 12/29/16 10:18 Dose: 2 mg Mupirocin (Bactroban 2% Nasal) 0.5 gm VIRAJ BID [facility] Stop: 12/31/16 10:01 Last Admin: 12/30/16 13:00 Dose: 0.5 gm Neomycin/Polymyxin/Hydrocortisone (Cortisporin Otic Soln) 2 drop AU QID [facility] Last Admin: 12/30/16 14:08 Dose: 2 drop Nitroglycerin (Nitro-Bid 2% Oint) 1 ea TOP Q6 [facility] Last Admin: 12/30/16 14:08 Dose: 1 ea Ondansetron HCl (Zofran Inj) 4 mg IVP Q4 PRN PRN Reason: Nausea/Vomiting Last Admin: 12/27/16 11:47 Dose: 4 mg Pantoprazole Sodium (Protonix Inj) 40 mg IVP DAILY [facility] Last Admin: 12/30/16 10:53 Dose: 40 mg Phenol/Menthol (Phenaseptic 1.4% Throat [place]) 0 ml MT Q2H PRN PRN Reason: Sore Throat Last Admin: 12/24/16 10:54 Dose: 1 spr Rosuvastatin Calcium (Crestor) 5 mg PO HS [facility] Last Admin: 12/29/16 22:22 Dose: 5 mg - Labs Labs: 12/30/16 07:12 12/30/16 07:12 PT 12.6 SECONDS (9.7-12.2) H 12/21/16 11:39 INR 1.1 12/21/16 11:39 APTT 25 SECONDS (21-34) 12/21/16 11:39 - Constitutional Appears: No Acute Distress - Head Exam Head Exam: NORMAL INSPECTION - Eye Exam Eye Exam: EOMI, PERRL - ENT Exam ENT Exam: Normal Oropharynx - Neck Exam Neck Exam: Normal Inspection - Respiratory Exam Respiratory Exam: Decreased Breath Sounds (at the bases), Rhonchi - Cardiovascular Exam Cardiovascular Exam: REGULAR RHYTHM, +S1, +S2 - GI/Abdominal Exam GI & Abdominal Exam: Soft ( incision site central dry.), Normal Bowel Sounds - Extremities Exam Extremities Exam: Normal Capillary Refill. absent: Calf Tenderness, Pedal Edema - Neurological Exam Neurological Exam: Awake, Oriented x3 - Psychiatric Exam Psychiatric exam: Normal Mood - Skin Skin Exam: Normal Color, Warm Assessment and Plan (1) Fever Assessment & Plan: improving leukocytosis and fever. Platelets also normalizing to 321. Blood cultures 12/26 negative for 3 days urine cultures 12/29 negative growth. cONTINUE iv tYGACIL 50 MG EVERY 12 HOURLY. fOLLOW-UP CHEST X-RAY TO EVALUATE BY BASILAR INFILTRATES. Status: Acute (2) Pneumonia Assessment & Plan: F/U CXR IN AM . Status: Suspected (3) Small bowel obstruction Assessment & Plan: S/P EXPL LAP/LYSIS OF ADHESION 12/21/16 POD # DAY 9 WOUND CLEAN . DRESSING DRY. Status: Acute (4) COPD exacerbation Status: Acute (5) Diabetes mellitus Status: Chronic (6) Hypertension Status: Chronic (7) Anemia Status: Acute
--- NOTE | 2016-12-30 21:33 | CP.PCM.PN ---
Subjective - Date & Time of Evaluation Date of Evaluation: 12/30/16 Time of Evaluation: 11:31 - Subjective Subjective: AFEBRILE ON NGT FEEDINGS PT FOR PEG PER GI I Objective - Vital Signs/Intake and Output Vital Signs (last 24 hours): Temp Pulse Resp BP Pulse Ox 98 F 77 20 146/72 95 12/30/16 16:00 12/30/16 16:00 12/30/16 16:00 12/30/16 16:00 12/30/16 19:15 Intake and Output: 12/30/16 12/31/16 18:59 06:59 Intake Total 120 Balance 120 - Medications Medications: Current Medications Acetaminophen (Tylenol 325 Mg Supp) 325 mg [place] Q6 PRN PRN Reason: Fever >100.4 F Last Admin: 12/26/16 20:45 Dose: 325 mg Acetaminophen (Tylenol 325mg Tab) 650 mg PO Q6 PRN PRN Reason: Pain, moderate (4-7) Last Admin: 12/30/16 10:52 Dose: 650 mg Acetaminophen (Tylenol 325mg Tab) 650 mg PO Q6 PRN PRN Reason: Fever >100.4 F Acetylcysteine (Acetylcysteine 20%) 4 ml INH RQ6 [facility] Last Admin: 12/30/16 19:39 Dose: 4 ml Albuterol/Ipratropium (Duoneb 3 Mg/0.5 Mg (3 Ml) Ud) 3 ml INH RQ6 [facility] Last Admin: 12/30/16 19:39 Dose: 3 ml Carbidopa/Levodopa (Sinemet) 1 tab PO Q8 [facility] Last Admin: 12/30/16 14:08 Dose: 1 tab Diltiazem HCl (Cardizem Cd) 300 mg PO DAILY [facility] Last Admin: 12/30/16 11:00 Dose: 300 mg Emollient Ointment (Vaseline Oint) 5 gm TOP BID PRN PRN Reason: Dry skin Last Admin: 12/21/16 01:28 Dose: 5 gm Guaifenesin (Mucinex La) 600 mg PO BID [facility] Last Admin: 12/30/16 18:37 Dose: 600 mg Guaifenesin/Dextromethorphan (Robitussin Dm) 10 ml PO Q4H PRN PRN Reason: Cough and congestion Heparin Sodium (Porcine) (Heparin) 5,000 units SC BID [facility] Last Admin: 12/30/16 18:37 Dose: 5,000 units Tigecycline 50 mg/ Sodium (Chloride) 100 mls @ 100 mls/hr IVPB Q12H [facility] Last Admin: 12/30/16 14:08 Dose: 100 mls/hr Lactobacillus Acidophilus (Bacid Acidophilus) 1 cap PO BID [facility] Last Admin: 12/30/16 19:39 Dose: 1 cap Losartan Potassium (Cozaar) 100 mg PO DAILY [facility] Last Admin: 12/30/16 10:53 Dose: 100 mg Morphine Sulfate (Morphine) 2 mg IVP Q4 PRN PRN Reason: Pain, moderate (4-7) Last Admin: 12/29/16 10:18 Dose: 2 mg Mupirocin (Bactroban 2% Nasal) 0.5 gm VIRAJ BID [facility] Stop: 12/31/16 10:01 Last Admin: 12/30/16 18:38 Dose: 0.5 gm Neomycin/Polymyxin/Hydrocortisone (Cortisporin Otic Soln) 2 drop AU QID [facility] Last Admin: 12/30/16 18:37 Dose: 2 drop Nitroglycerin (Nitro-Bid 2% Oint) 1 ea TOP Q6 [facility] Last Admin: 12/30/16 18:38 Dose: 1 ea Ondansetron HCl (Zofran Inj) 4 mg IVP Q4 PRN PRN Reason: Nausea/Vomiting Last Admin: 12/27/16 11:47 Dose: 4 mg Pantoprazole Sodium (Protonix Inj) 40 mg IVP DAILY [facility] Last Admin: 12/30/16 10:53 Dose: 40 mg Phenol/Menthol (Phenaseptic 1.4% Throat [place]) 0 ml MT Q2H PRN PRN Reason: Sore Throat Last Admin: 12/24/16 10:54 Dose: 1 spr Rosuvastatin Calcium (Crestor) 5 mg PO HS [facility] Last Admin: 12/29/16 22:22 Dose: 5 mg - Labs Labs: 12/30/16 07:12 12/30/16 07:12 PT 12.6 SECONDS (9.7-12.2) H 12/21/16 11:39 INR 1.1 12/21/16 11:39 APTT 25 SECONDS (21-34) 12/21/16 11:39 Assessment and Plan (1) Abdominal pain Status: Acute (2) Small bowel obstruction Status: Acute (3) Diabetes mellitus Status: Chronic (4) Hypertension Status: Chronic
[2016-12-31] MEDS: Nitroglycerin 2% Ointment Foilpak UD TOP SCH ×4 (00:18→17:34)
[2016-12-31] MEDS: Acetylcysteine 20% Inhal Soln (4ml) INH SCH ×4 (01:19→20:44)
[2016-12-31] MEDS: Albuterol-Ipratrop 3 mg / 0.5 (3 ml) UD INH SCH ×4 (01:19→20:44)
--- NOTE | 2016-12-31 08:00 | RAD ---
Chest x-ray single frontal view History: Chest pain. Comparison: 12/26/2016. Findings: Lines and tubes in stable position. Patchy somewhat consolidative opacity at the right lung apex. Moderate to severe venous congestion with bibasilar airspace opacities. Small to moderate left and small right pleural effusion. Cardiomegaly. Calcification at the aortic knob. Degenerative changes in the spine and shoulders. Impression: Patchy somewhat consolidative opacity at the right lung apex. Moderate to severe venous congestion with bibasilar airspace opacities. Small to moderate left and small right pleural effusion. Cardiomegaly.
[2016-12-31] MEDS: guaiFENesin 600 mg ER Tab PO SCH ×2 (10:11→17:38)
[2016-12-31] MEDS: Mupirocin 2% Ointment (NASAL) NAS SCH (10:13)
[2016-12-31] MEDS: Lactobacillus Acidophilus 500 MU Cap PO SCH ×2 (10:14→17:34)
[2016-12-31] MEDS: Neomycin/Polymyxin/Hydrocort Otic Soln BOTTLE AU SCH ×4 (10:14→21:17)
[2016-12-31] MEDS: diltiaZEM 300 mg/24 Hours CD Cap PO SCH (10:15)
[2016-12-31 11:34] LABS: HEMATOCRIT 27.1 % (34.0-47.0); MEAN CELL VOLUME 81.8 fL (81.0-99.0); MEAN CORPUSCULAR HEMOGLOBIN 26.3 pg (27.0-31.0); MEAN CORPUSCULAR HGB CONC 32.2 g/dL (33.0-37.0); MEAN PLATELET VOLUME 7.4 fL (7.2-11.7)
--- NOTE | 2016-12-31 11:58 | CP.PCM.PN ---
Subjective - Date & Time of Evaluation Date of Evaluation: 12/31/16 Time of Evaluation: 08:00 - Subjective Subjective: Surgery: Dr. Cano Pt seen and examined. No acute overnight events as per pt's daughter at bedside. Pt is lethargic but denies abdominal pain. Daughter states she has been having BMs. No fevers overnight. Objective - Vital Signs/Intake and Output Vital Signs (last 24 hours): Temp Pulse Resp BP Pulse Ox 99.8 F H 88 20 148/72 92 L 12/30/16 23:20 12/30/16 23:20 12/31/16 05:26 12/30/16 23:20 12/30/16 23:20 Intake and Output: 12/31/16 12/31/16 06:59 18:59 Output Total 500 Balance -500 - Medications Medications: Current Medications Acetaminophen (Tylenol 325 Mg Supp) 325 mg [place] Q6 PRN PRN Reason: Fever >100.4 F Last Admin: 12/26/16 20:45 Dose: 325 mg Acetaminophen (Tylenol 325mg Tab) 650 mg PO Q6 PRN PRN Reason: Pain, moderate (4-7) Last Admin: 12/30/16 10:52 Dose: 650 mg Acetaminophen (Tylenol 325mg Tab) 650 mg PO Q6 PRN PRN Reason: Fever >100.4 F Acetylcysteine (Acetylcysteine 20%) 4 ml INH RQ6 [facility] Last Admin: 12/31/16 07:50 Dose: 4 ml Albuterol/Ipratropium (Duoneb 3 Mg/0.5 Mg (3 Ml) Ud) 3 ml INH RQ6 [facility] Last Admin: 12/31/16 07:50 Dose: 3 ml Carbidopa/Levodopa (Sinemet) 1 tab PO Q8 [facility] Last Admin: 12/31/16 05:27 Dose: 1 tab Diltiazem HCl (Cardizem Cd) 300 mg PO DAILY [facility] Last Admin: 12/31/16 10:15 Dose: 300 mg Emollient Ointment (Vaseline Oint) 5 gm TOP BID PRN PRN Reason: Dry skin Last Admin: 12/21/16 01:28 Dose: 5 gm Guaifenesin (Mucinex La) 600 mg PO BID [facility] Last Admin: 12/31/16 10:11 Dose: 600 mg Guaifenesin/Dextromethorphan (Robitussin Dm) 10 ml PO Q4H PRN PRN Reason: Cough and congestion Heparin Sodium (Porcine) (Heparin) 5,000 units SC BID [facility] Last Admin: 12/31/16 10:09 Dose: 5,000 units Tigecycline 50 mg/ Sodium (Chloride) 100 mls @ 100 mls/hr IVPB Q12H [facility] Last Admin: 12/31/16 00:18 Dose: 100 mls/hr Lactobacillus Acidophilus (Bacid Acidophilus) 1 cap PO BID [facility] Last Admin: 12/31/16 10:14 Dose: 1 cap Losartan Potassium (Cozaar) 100 mg PO DAILY [facility] Last Admin: 12/31/16 10:08 Dose: 100 mg Morphine Sulfate (Morphine) 2 mg IVP Q4 PRN PRN Reason: Pain, moderate (4-7) Last Admin: 12/29/16 10:18 Dose: 2 mg Neomycin/Polymyxin/Hydrocortisone (Cortisporin Otic Soln) 2 drop AU QID [facility] Last Admin: 12/31/16 10:14 Dose: 2 drop Nitroglycerin (Nitro-Bid 2% Oint) 1 ea TOP Q6 [facility] Last Admin: 12/31/16 05:26 Dose: 1 ea Ondansetron HCl (Zofran Inj) 4 mg IVP Q4 PRN PRN Reason: Nausea/Vomiting Last Admin: 12/27/16 11:47 Dose: 4 mg Pantoprazole Sodium (Protonix Inj) 40 mg IVP DAILY [facility] Last Admin: 12/31/16 10:12 Dose: 40 mg Phenol/Menthol (Phenaseptic 1.4% Throat [place]) 0 ml MT Q2H PRN PRN Reason: Sore Throat Last Admin: 12/24/16 10:54 Dose: 1 spr Rosuvastatin Calcium (Crestor) 5 mg PO HS [facility] Last Admin: 12/30/16 22:08 Dose: 5 mg - Labs Labs: 12/31/16 11:23 12/30/16 07:12 PT 12.6 SECONDS (9.7-12.2) H 12/21/16 11:39 INR 1.1 12/21/16 11:39 APTT 25 SECONDS (21-34) 12/21/16 11:39 - Constitutional Appears: No Acute Distress - ENT Exam ENT Exam: Mucous Membranes Moist - Respiratory Exam Respiratory Exam: NORMAL BREATHING PATTERN - Cardiovascular Exam Cardiovascular Exam: RRR - GI/Abdominal Exam GI & Abdominal Exam: Soft. absent: Distended, Tenderness Additional comments: midline incision with cristy in place, C/D/I - Neurological Exam Neurological Exam: Awake - Skin Skin Exam: Dry, Warm Assessment and Plan - Assessment and Plan (Free Text) Assessment: 86F s/p Ex-Lap with SB resection for SBO; POD#10 Plan: - No further surgical intervention at this time - Will take out cristy before DC - Encourage ambulation/PT - d/w Dr. Jerome Alas, PGY-2 Surgery
--- NOTE | 2016-12-31 22:32 | CP.PCM.PN ---
Subjective - Date & Time of Evaluation Date of Evaluation: 12/31/16 Time of Evaluation: 20:00 - Subjective Subjective: Pt seen and examined, more alert, afebrile Objective - Vital Signs/Intake and Output Vital Signs (last 24 hours): Temp Pulse Resp BP Pulse Ox 99.5 F 88 13 157/70 H 93 L 12/31/16 16:03 12/31/16 16:03 12/31/16 20:46 12/31/16 16:03 12/31/16 16:03 - Medications Medications: Current Medications Acetaminophen (Tylenol 325 Mg Supp) 325 mg [place] Q6 PRN PRN Reason: Fever >100.4 F Last Admin: 12/26/16 20:45 Dose: 325 mg Acetaminophen (Tylenol 325mg Tab) 650 mg PO Q6 PRN PRN Reason: Pain, moderate (4-7) Last Admin: 12/30/16 10:52 Dose: 650 mg Acetaminophen (Tylenol 325mg Tab) 650 mg PO Q6 PRN PRN Reason: Fever >100.4 F Acetylcysteine (Acetylcysteine 20%) 4 ml INH RQ6 [facility] Last Admin: 12/31/16 20:44 Dose: 4 ml Albuterol/Ipratropium (Duoneb 3 Mg/0.5 Mg (3 Ml) Ud) 3 ml INH RQ6 [facility] Last Admin: 12/31/16 20:44 Dose: 3 ml Carbidopa/Levodopa (Sinemet) 1 tab PO Q8 [facility] Last Admin: 12/31/16 21:10 Dose: 1 tab Diltiazem HCl (Cardizem Cd) 300 mg PO DAILY [facility] Last Admin: 12/31/16 10:15 Dose: 300 mg Emollient Ointment (Vaseline Oint) 5 gm TOP BID PRN PRN Reason: Dry skin Last Admin: 12/21/16 01:28 Dose: 5 gm Guaifenesin (Mucinex La) 600 mg PO BID [facility] Last Admin: 12/31/16 17:38 Dose: 600 mg Guaifenesin/Dextromethorphan (Robitussin Dm) 10 ml PO Q4H PRN PRN Reason: Cough and congestion Heparin Sodium (Porcine) (Heparin) 5,000 units SC BID [facility] Last Admin: 12/31/16 17:35 Dose: 5,000 units Tigecycline 50 mg/ Sodium (Chloride) 100 mls @ 100 mls/hr IVPB Q12H [facility] Last Admin: 12/31/16 12:29 Dose: 100 mls/hr Lactobacillus Acidophilus (Bacid Acidophilus) 1 cap PO BID [facility] Last Admin: 12/31/16 17:34 Dose: 1 cap Losartan Potassium (Cozaar) 100 mg PO DAILY [facility] Last Admin: 12/31/16 10:08 Dose: 100 mg Morphine Sulfate (Morphine) 2 mg IVP Q4 PRN PRN Reason: Pain, moderate (4-7) Last Admin: 12/29/16 10:18 Dose: 2 mg Neomycin/Polymyxin/Hydrocortisone (Cortisporin Otic Soln) 2 drop AU QID [facility] Last Admin: 12/31/16 21:17 Dose: 2 drop Nitroglycerin (Nitro-Bid 2% Oint) 1 ea TOP Q6 [facility] Last Admin: 12/31/16 17:34 Dose: 1 ea Ondansetron HCl (Zofran Inj) 4 mg IVP Q4 PRN PRN Reason: Nausea/Vomiting Last Admin: 12/27/16 11:47 Dose: 4 mg Pantoprazole Sodium (Protonix Inj) 40 mg IVP DAILY [facility] Last Admin: 12/31/16 10:12 Dose: 40 mg Phenol/Menthol (Phenaseptic 1.4% Throat [place]) 0 ml MT Q2H PRN PRN Reason: Sore Throat Last Admin: 12/24/16 10:54 Dose: 1 spr - Labs Labs: 12/31/16 11:23 12/30/16 07:12 PT 12.6 SECONDS (9.7-12.2) H 12/21/16 11:39 INR 1.1 12/21/16 11:39 APTT 25 SECONDS (21-34) 12/21/16 11:39 - Constitutional Appears: No Acute Distress - Head Exam Head Exam: ATRAUMATIC, NORMAL INSPECTION, NORMOCEPHALIC - Eye Exam Eye Exam: EOMI, Normal appearance, PERRL Pupil Exam: NORMAL ACCOMODATION, PERRL - ENT Exam ENT Exam: Mucous Membranes Moist, Normal Exam - Respiratory Exam Respiratory Exam: Clear to Ausculation Bilateral, NORMAL BREATHING PATTERN - Cardiovascular Exam Cardiovascular Exam: REGULAR RHYTHM, +S1, +S2. absent: Murmur Assessment and Plan (1) Abdominal pain Status: Acute (2) Small bowel obstruction Status: Acute (3) Diabetes mellitus Status: Chronic (4) Hypertension Status: Chronic
[2017-01-01] MEDS: Nitroglycerin 2% Ointment Foilpak UD TOP SCH ×3 (00:14→14:30)
[2017-01-01] MEDS: Acetylcysteine 20% Inhal Soln (4ml) INH SCH ×4 (01:27→19:46)
[2017-01-01] MEDS: Albuterol-Ipratrop 3 mg / 0.5 (3 ml) UD INH SCH ×4 (01:27→19:46)
[2017-01-01] MEDS: Lactobacillus Acidophilus 500 MU Cap PO SCH ×2 (09:18→19:24)
[2017-01-01] MEDS: diltiaZEM 300 mg/24 Hours CD Cap PO SCH (09:18)
[2017-01-01] MEDS: guaiFENesin 600 mg ER Tab PO SCH ×2 (09:19→19:32)
[2017-01-01] MEDS: guaiFENesin DM 200 mg-20 mg/10 ml UD PO PRN ×3 (09:19→19:25)
[2017-01-01] MEDS: Neomycin/Polymyxin/Hydrocort Otic Soln BOTTLE AU SCH ×5 (09:20→22:49)
--- NOTE | 2017-01-01 13:54 | CP.PCM.PN ---
Subjective - Date & Time of Evaluation Date of Evaluation: 01/01/17 Time of Evaluation: 13:54 - Subjective Subjective: PATIENT APPEARS WEAK AND LETHARGIC, oN NASAL CANNULA OXYGEN RN REPORTS PATIENT'S PULSE OX LOW, INCREASED OXYGEN TO 50%. VITAL SIGNS; AFEBRILE, BLOOD PRESSURE 130/67, HEART RATE 68/M, GENERALIZED EDEMA BILATERAL LOWER EXTREMITIES NOTED. Objective - Vital Signs/Intake and Output Vital Signs (last 24 hours): Temp Pulse Resp BP Pulse Ox 99.9 F H 77 20 134/67 91 L 01/01/17 13:48 01/01/17 13:48 01/01/17 13:48 01/01/17 13:48 01/01/17 13:48 - Medications Medications: Current Medications Acetaminophen (Tylenol 325 Mg Supp) 325 mg [place] Q6 PRN PRN Reason: Fever >100.4 F Last Admin: 12/31/16 22:44 Dose: 325 mg Acetaminophen (Tylenol 325mg Tab) 650 mg PO Q6 PRN PRN Reason: Pain, moderate (4-7) Last Admin: 12/30/16 10:52 Dose: 650 mg Acetaminophen (Tylenol 325mg Tab) 650 mg PO Q6 PRN PRN Reason: Fever >100.4 F Acetylcysteine (Acetylcysteine 20%) 4 ml INH RQ6 [facility] Last Admin: 01/01/17 08:16 Dose: 4 ml Albuterol/Ipratropium (Duoneb 3 Mg/0.5 Mg (3 Ml) Ud) 3 ml INH RQ6 [facility] Last Admin: 01/01/17 08:16 Dose: 3 ml Carbidopa/Levodopa (Sinemet) 1 tab PO Q8 [facility] Last Admin: 01/01/17 05:14 Dose: 1 tab Diltiazem HCl (Cardizem Cd) 300 mg PO DAILY [facility] Last Admin: 01/01/17 09:18 Dose: 300 mg Emollient Ointment (Vaseline Oint) 5 gm TOP BID PRN PRN Reason: Dry skin Last Admin: 12/21/16 01:28 Dose: 5 gm Guaifenesin (Mucinex La) 600 mg PO BID [facility] Last Admin: 12/31/16 17:38 Dose: 600 mg Guaifenesin/Dextromethorphan (Robitussin Dm) 10 ml PO Q4H PRN PRN Reason: Cough and congestion Last Admin: 01/01/17 09:21 Dose: 10 ml Heparin Sodium (Porcine) (Heparin) 5,000 units SC BID [facility] Last Admin: 01/01/17 09:19 Dose: 5,000 units Tigecycline 50 mg/ Sodium (Chloride) 100 mls @ 100 mls/hr IVPB Q12H [facility] Last Admin: 01/01/17 12:43 Dose: 100 mls/hr Lactobacillus Acidophilus (Bacid Acidophilus) 1 cap PO BID [facility] Last Admin: 01/01/17 09:18 Dose: 1 cap Losartan Potassium (Cozaar) 100 mg PO DAILY [facility] Last Admin: 01/01/17 09:19 Dose: 100 mg Morphine Sulfate (Morphine) 2 mg IVP Q4 PRN PRN Reason: Pain, moderate (4-7) Last Admin: 12/29/16 10:18 Dose: 2 mg Neomycin/Polymyxin/Hydrocortisone (Cortisporin Otic Soln) 2 drop AU QID [facility] Last Admin: 01/01/17 09:20 Dose: 2 drop Ondansetron HCl (Zofran Inj) 4 mg IVP Q4 PRN PRN Reason: Nausea/Vomiting Last Admin: 12/27/16 11:47 Dose: 4 mg Pantoprazole Sodium (Protonix Inj) 40 mg IVP DAILY [facility] Last Admin: 01/01/17 09:19 Dose: 40 mg Phenol/Menthol (Phenaseptic 1.4% Throat [place]) 0 ml MT Q2H PRN PRN Reason: Sore Throat Last Admin: 12/24/16 10:54 Dose: 1 spr - Labs Labs: 12/31/16 11:23 12/30/16 07:12 PT 12.6 SECONDS (9.7-12.2) H 12/21/16 11:39 INR 1.1 12/21/16 11:39 APTT 25 SECONDS (21-34) 12/21/16 11:39 - Constitutional Appears: No Acute Distress - Head Exam Head Exam: NORMAL INSPECTION - Eye Exam Eye Exam: EOMI, PERRL - ENT Exam ENT Exam: Mucous Membranes Moist - Neck Exam Neck Exam: Normal Inspection - Respiratory Exam Respiratory Exam: Decreased Breath Sounds (BOTH BASES.), Rales - Cardiovascular Exam Cardiovascular Exam: REGULAR RHYTHM, +S1, +S2 - GI/Abdominal Exam GI & Abdominal Exam: Soft (MIDLINE INCISION CLEAN.), Normal Bowel Sounds - Extremities Exam Extremities Exam: Pedal Edema (2+ BILATERALLY). absent: Calf Tenderness - Neurological Exam Neurological Exam: Awake - Psychiatric Exam Psychiatric exam: Flat Affect - Skin Skin Exam: Normal Color Assessment and Plan (1) Fever Assessment & Plan: Blood cultures 12/26 negative for 3 days urine cultures 12/29 negative growth. CONTINUE iv tYGACIL 50 MG EVERY 12 HOURLY. fOLLOW-UP CHEST X-RAY TO EVALUATE BY BASILAR INFILTRATES. Status: Acute (2) Pneumonia Assessment & Plan: BLOOD GAS ORDERED CASE DISCUSSED WITH NURSE PRACTITIONER MS. PLUNKETT. ONE DOSE OF lASIX 40 MG iv GIVEN PATIENT CONDITION TO BE NOTIFIED TO THE PRIMARY CARE. Status: Suspected (3) Small bowel obstruction Assessment & Plan: patient S/P exploratory laparotomy with lysis of adhesions/small bowel resection and anastomosis 12/21/16. DAY #11. Status: Acute (4) COPD exacerbation Assessment & Plan: PULMONARY TOILET. Status: Acute (5) Diabetes mellitus Status: Chronic (6) Hypertension Status: Chronic (7) Anemia Status: Acute
[2017-01-01 17:40] LABS: ABG ALLEN TEST POS; ARTERIAL BLOOD HGB O2 SAT 98.4 % (95.0-98.0); DRAW SITE LRA; METHEMOGLOBIN 0.6 % (0.0-3.0)
[2017-01-01 21:04] LABS: DRAW SITE VENOS; VENOUS BLOOD GAS BASE EXCESS 1.5 mmol/L (0.0-2.0); VENOUS BLOOD GAS PCO2 34 mmHg (40-60); VENOUS BLOOD PH 7.47 (7.32-7.43)
[2017-01-01 21:23] LABS: CHLORIDE 106 mmol/L (98-107); POTASSIUM 3.4 mmol/L (3.6-5.2); SODIUM 141 mmol/L (132-148)
[2017-01-01 21:25] LABS: GFR AFRICAN-AMERICAN > 60
[2017-01-01 21:26] LABS: BLOOD UREA NITROGEN 23 mg/dL (7-17); CALCIUM 7.7 mg/dl (8.6-10.4); CARBON DIOXIDE 26 mmol/L (22-30); GLUCOSE,RANDOM 98 mg/dL (65-105); MAGNESIUM 1.9 mg/dL (1.6-2.3); PHOSPHOROUS 3.9 mg/dL (2.5-4.5)
--- NOTE | 2017-01-01 21:54 | CP.PCM.CON ---
History of Present Illness - History of Present Illness History of Present Illness: This in 86 year old female with multiple medical problems who was admitted to the hospital on 12/16/2016 for small bowel obstruction from a bezoar. She has not been able to be discharged since then, hospitalization has been complicated by pneumonia and declining mental status. Her health has been slowly declining since 12/07/2016 when she was admitted for UTI and respiratory distress with discharge to a skilled nursing, has not been able to return home since then. Today she has an acute decline in her state of health after breakfast with weakness, worsening mental status and poor respiratory drive. Transfered to ICU and placed on bipap 14//60% with TV 250-350, venous gas 7.47/34/35. She has generalized edema and the right leg is much more swollen than the left. PMH: HTN CHF COPD PE Parkinson's morbid obesity surgeries: bilateral knee replacement IVC filter cholecystectomy recent small bowel resection Allergic to PNC PE: bp 150/65 mmhg, hr 64 bpm, O2 96% on above settings, no fever, rr 14 awakens when called and follows with eyes, there is some minimal following of commands s1, s2 unable to auscultate due to body habitus lungs auscultate from back with minimal air of movement, right side sounds a little louder than left generalized edema difficult to make her move extremities, but she does to pain and spontaneously hits her right leg with her right arm abdominal middle surgical incision a/p: support with bpap, no secretions, npo due to poor mental status, ok for ice chips if patient wishes, get CT of chest, broad antibiotic coverage ams most likely due to hypoxia, d/c carvidopa/levodopa diuresis with lasix and repeat in am r/o dvt of right leg vs stable for now updated daughter, might need intubation Past Patient History - Infectious Disease Hx of Infectious Diseases: None - Past Medical History & Family History Past Medical History?: Yes - Past Social History Smoking Status: Never Smoked - CARDIAC Hx Congestive Heart Failure: Yes (Around 10 yrs ago) Hx Hypercholesterolemia: Yes Hx Hypertension: Yes - PULMONARY Hx Chronic Obstructive Pulmonary Disease (COPD): Yes - NEUROLOGICAL Hx Parkinson's Disease: Yes - HEENT Hx Cataracts: Yes (hx, cataract surgery 4 yrs ago) Other/Comment: wear eyeglasses - RENAL Hx Chronic Kidney Disease: No - ENDOCRINE/METABOLIC Hx Diabetes Mellitus Type 2: Yes - HEMATOLOGICAL/ONCOLOGICAL Hx Anemia: Yes - INTEGUMENTARY Hx Dermatological Problems: No - MUSCULOSKELETAL/RHEUMATOLOGICAL Hx Arthritis: Yes (hx. back surgery; B/L TKR) - GASTROINTESTINAL Hx Gastrointestinal Disorders: No - GENITOURINARY/GYNECOLOGICAL Hx Genitourinary Disorders: No Hx Urinary Tract Infection: Yes - PSYCHIATRIC Hx Substance Use: No - SURGICAL HISTORY Hx Cataract Extraction: Yes Hx Joint Replacement: Yes (Bilateral knee replacement) Other/Comment: Back surgery (Bone fusion), Gallbladder surgery, skin graft surgery left leg, green filter placement - ANESTHESIA Hx Anesthesia: Yes Hx Anesthesia Reactions: No Hx Malignant Hyperthermia: No Meds Allergies/Adverse Reactions: Allergies Allergy/AdvReac Type Severity Reaction Status Date / Time Penicillins Allergy Verified 11/01/15 12:32 - Medications Medications: Current Medications Acetaminophen (Tylenol 325mg Tab) 650 mg PO Q6 PRN PRN Reason: Fever >100.4 F Albuterol/Ipratropium (Duoneb 3 Mg/0.5 Mg (3 Ml) Ud) 3 ml INH RQ6 [facility] Last Admin: 01/01/17 19:46 Dose: 3 ml Diltiazem HCl (Cardizem Cd) 300 mg PO DAILY [facility] Last Admin: 01/01/17 09:18 Dose: 300 mg Furosemide (Lasix) 60 mg IVP DAILY [facility] Heparin Sodium (Porcine) (Heparin) 5,000 units SC BID [facility] Last Admin: 01/01/17 19:24 Dose: 5,000 units Tigecycline 50 mg/ Sodium (Chloride) 100 mls @ 100 mls/hr IVPB Q12H [facility] Last Admin: 01/01/17 12:43 Dose: 100 mls/hr Losartan Potassium (Cozaar) 100 mg PO DAILY [facility] Last Admin: 01/01/17 09:19 Dose: 100 mg Neomycin/Polymyxin/Hydrocortisone (Cortisporin Otic Soln) 2 drop AU QID [facility] Last Admin: 01/01/17 19:24 Dose: 2 drop Pantoprazole Sodium (Protonix Inj) 40 mg IVP DAILY [facility] Last Admin: 01/01/17 09:19 Dose: 40 mg Phenol/Menthol (Phenaseptic 1.4% Throat [place]) 0 ml MT Q2H PRN PRN Reason: Sore Throat Last Admin: 12/24/16 10:54 Dose: 1 spr Results - Vital Signs Recent Vital Signs: Last Vital Signs Temp 99.8 F H 01/01/17 16:30 Pulse 98 H 01/01/17 20:45 Resp 24 01/01/17 19:52 BP 165/72 H 01/01/17 21:33 Pulse Ox 93 L 01/01/17 16:30 - Labs Result Diagrams: 12/31/16 11:23 01/01/17 21:01 Labs: Laboratory Results - last 24 hr 01/01/17 01/01/17 01/01/17 17:32 20:00 21:01 Puncture Site Lra Venos pCO2 19 L* pO2 174 H 35 HCO3 27.2 ABG pH 7.69 H* ABG Total CO2 23.5 ABG O2 Saturation 101.0 H ABG Base Excess 2.8 ABG Hemoglobin 6.6 L ABG Carboxyhemoglobin 2.0 H POC ABG HHb (Measured) -1.0 L ABG Methemoglobin 0.6 George Test Pos Na VBG pH 7.47 H VBG pCO2 34 L VBG HCO3 25.4 VBG O2 Sat (Calc) 73.6 H VBG Base Excess 1.5 A-a O2 Difference 159.0 Respiratory Index 0.9 Hgb O2 Saturation 98.4 H Liter Flow 15.0 FiO2 50.0 Crit Value Called To Anuel reynolds np Crit Value Called By Navi jeffrey parking station attendant Crit Value Read Back Y Blood Gas Notified Time 3193 Sodium 141 Potassium 3.4 L Chloride 106 Carbon Dioxide 26 Anion Gap 13 BUN 23 H Creatinine 0.7 Est GFR ( Amer) > 60 Est GFR (Non-Af Amer) > 60 Random Glucose 98 Calcium 7.7 L Phosphorus 3.9 Magnesium 1.9
[2017-01-01] MEDS: Magnesium Sulfate 1 gm in D5W 1 GM/100 ML BAG IVPB SCH ×2 (22:19→22:48)
--- NOTE | 2017-01-01 22:33 | CT ---
EXAM: CT Head Without Intravenous Contrast CLINICAL HISTORY: 86 years old, female; Signs and symptoms; Altered mental status/memory loss; Confusion or disorientation; Additional info: AMS TECHNIQUE: Axial computed tomography images of the head/brain without intravenous contrast. This CT exam was performed using one or more of the following dose reduction techniques: automated exposure control, adjustment of the mA and/or kV according to patient size, and/or use of iterative reconstruction technique. COMPARISON: No relevant prior studies available. FINDINGS: Limitations: Motion artifact - mild. Brain: [id number] atrophy. Mild encephalomalacia within LEFT temporal region. No definite intracranial hemorrhage. No mass. Several scattered foci of decreased attenuation within periventricular/subcortical white matter. No definite edema. Ventricles: No hydrocephalus. Bones/joints: No acute fracture. Soft tissues: Unremarkable. Vasculature: Atherosclerotic disease of intracranial arteries. Sinuses: No acute sinusitis. Mastoid air cells: No mastoid effusion. Orbits: Unremarkable as visualized. IMPRESSION: 1. Nonspecific white matter changes. Acute infarction may be CT occult within first 24 hours. If a focal deficit persists, consider followup CT or MRI for further evaluation. 2. Incidental/non-acute findings are described above.
--- NOTE | 2017-01-01 22:41 | CT ---
EXAM: CT Chest Without Intravenous Contrast CLINICAL HISTORY: 86 years old, female; Signs and symptoms; Shortness of breath; Additional info: R/O pneumonia TECHNIQUE: Axial computed tomography images of the chest without intravenous contrast. This CT exam was performed using one or more of the following dose reduction techniques: automated exposure control, adjustment of the mA and/or kV according to patient size, and/or use of iterative reconstruction technique. Coronal and sagittal reformatted images were created and reviewed. COMPARISON: No relevant prior studies available. FINDINGS: Limitations: Lack of intravenous contrast. Motion artifact - mild. Lungs: Occlusion of several distal lower lobe bronchi. Consolidation of LEFT lower, RIGHT lower, RIGHT middle lobes with air bronchograms and associated volume loss. Scattered patchy ground glass/airspace opacities within RIGHT upper, LEFT upper lobes. Pleural space: No pneumothorax. No significant effusion. Heart: No cardiomegaly. No significant pericardial effusion. Mediastinum: Small hiatal hernia. Thyroid: 1.2 x 1.2 x 1.4 cm cyst or nodule RIGHT lower thyroid. Bones/joints: Degenerative changes of spine. Soft tissues: Unremarkable. Vasculature: [id number] atherosclerotic disease of aorta. No aortic aneurysm. Lymph nodes: No pathologically enlarged lymph nodes. Liver: Fatty infiltration. Gallbladder and bile ducts: Cholecystectomy. Tubes, lines and devices: PICC with tip within proximal SVC. IMPRESSION: 1. Probable multifocal upper lobe pneumonia. RIGHT middle, RIGHT lower, LEFT lower lobe collapse. Superimposed pneumonia not excluded. Suggest bronchoscopy. Followup to resolution to exclude underlying pathology. 2. Incidental/non-acute findings are described above.
--- NOTE | 2017-01-01 23:15 | CP.PCM.PN ---
Subjective - Date & Time of Evaluation Date of Evaluation: 01/01/17 Time of Evaluation: 21:00 - Subjective Subjective: Pt c/o weakness, worsening mental status and poor respiratory drive. Transfered to ICU and placed on bipap 14/7/60% with TV 250-350, venous gas 7.47/34/35. She has generalized edema and the right leg is much more swollen than the left. Objective - Vital Signs/Intake and Output Vital Signs (last 24 hours): Temp Pulse Resp BP Pulse Ox 99.8 F H 76 24 165/72 H 93 L 01/01/17 16:30 01/01/17 22:22 01/01/17 19:52 01/01/17 21:33 01/01/17 16:30 - Medications Medications: Current Medications Acetaminophen (Tylenol 325mg Tab) 650 mg PO Q6 PRN PRN Reason: Fever >100.4 F Albuterol/Ipratropium (Duoneb 3 Mg/0.5 Mg (3 Ml) Ud) 3 ml INH RQ6 [facility] Last Admin: 01/01/17 19:46 Dose: 3 ml Diltiazem HCl (Cardizem Cd) 300 mg PO DAILY [facility] Last Admin: 01/01/17 09:18 Dose: 300 mg Furosemide (Lasix) 60 mg IVP DAILY [facility] Heparin Sodium (Porcine) (Heparin) 5,000 units SC BID [facility] Last Admin: 01/01/17 19:24 Dose: 5,000 units Tigecycline 50 mg/ Sodium (Chloride) 100 mls @ 100 mls/hr IVPB Q12H [facility] Last Admin: 01/01/17 12:43 Dose: 100 mls/hr Potassium Chloride (Potassium Chloride 20 Meq/100 Ml) 20 meq in 100 mls @ 50 mls/hr IVPB Q1H [facility] Stop: 01/01/17 23:59 Last Admin: 01/01/17 22:18 Dose: 50 mls/hr Losartan Potassium (Cozaar) 100 mg PO DAILY [facility] Last Admin: 01/01/17 09:19 Dose: 100 mg Neomycin/Polymyxin/Hydrocortisone (Cortisporin Otic Soln) 2 drop AU QID [facility] Last Admin: 01/01/17 22:49 Dose: 2 drop Pantoprazole Sodium (Protonix Inj) 40 mg IVP DAILY [facility] Last Admin: 05/22/17 09:19 Dose: 40 mg Phenol/Menthol (Phenaseptic 1.4% Throat [place]) 0 ml MT Q2H PRN PRN Reason: Sore Throat Last Admin: 12/24/16 10:54 Dose: 1 spr - Labs Labs: 12/31/16 11:23 01/01/17 21:01 PT 12.6 SECONDS (9.7-12.2) H 12/21/16 11:39 INR 1.1 12/21/16 11:39 APTT 25 SECONDS (21-34) 12/21/16 11:39 - Constitutional Appears: In Acute Distress, Confused - Head Exam Head Exam: ATRAUMATIC, NORMAL INSPECTION, NORMOCEPHALIC - ENT Exam ENT Exam: Mucous Membranes Moist - Respiratory Exam Respiratory Exam: Respiratory Distress - Cardiovascular Exam Cardiovascular Exam: REGULAR RHYTHM, +S1, +S2. absent: Murmur - GI/Abdominal Exam GI & Abdominal Exam: Soft, Normal Bowel Sounds. absent: Tenderness Assessment and Plan (1) Abdominal pain Status: Acute (2) Small bowel obstruction Status: Acute (3) Diabetes mellitus Status: Chronic (4) Hypertension Status: Chronic
[2017-01-02] MEDS: Albuterol-Ipratrop 3 mg / 0.5 (3 ml) UD INH SCH ×4 (01:17→19:31)
[2017-01-02 04:29] LABS: ABG ALLEN TEST POS; ARTERIAL BLOOD HGB O2 SAT 94.9 % (95.0-98.0); CARBOXYHEMOGLOBIN 1.8 % (0.5-1.5); DRAW SITE RR; HHB 2.1 % (0.0-5.0); METHEMOGLOBIN 1.1 % (0.0-3.0)
[2017-01-02 06:38] LABS: BASO # 0.3 K/uL (0.0-0.2); EOS # 0.3 K/uL (0.0-0.7); EOS % 2.1 % (0.0-4.0); HEMATOCRIT 29.5 % (34.0-47.0); LYMPH # 1.4 K/uL (1.0-4.3); LYMPH % 10.3 % (20.0-40.0); MEAN CELL VOLUME 81.6 fL (81.0-99.0); MEAN CORPUSCULAR HEMOGLOBIN 26.2 pg (27.0-31.0); MEAN CORPUSCULAR HGB CONC 32.1 g/dL (33.0-37.0); MEAN PLATELET VOLUME 7.2 fL (7.2-11.7); MONO # 0.6 K/uL (0.0-0.8); RED CELL DISTRIBUTION WIDTH 15.8 % (11.5-14.5); WHITE BLOOD COUNT 13.8 K/uL (4.8-10.8)
[2017-01-02 06:47] LABS: CHLORIDE 103 mmol/L (98-107); POTASSIUM 3.5 mmol/L (3.6-5.2); SODIUM 140 mmol/L (132-148)
[2017-01-02 06:50] LABS: BLOOD UREA NITROGEN 22 mg/dL (7-17); CARBON DIOXIDE 30 mmol/L (22-30); GFR AFRICAN-AMERICAN > 60
[2017-01-02 06:51] LABS: GLUCOSE,RANDOM 94 mg/dL (65-105); MAGNESIUM 2.1 mg/dL (1.6-2.3); PHOSPHOROUS 3.9 mg/dL (2.5-4.5)
[2017-01-02] MEDS ORDERED: Potassium Chloride 20 mEq ER Tab PO ONE (08:09)
[2017-01-02] MEDS: diltiaZEM 300 mg/24 Hours CD Cap PO SCH (09:58)
[2017-01-02] MEDS: Neomycin/Polymyxin/Hydrocort Otic Soln BOTTLE AU SCH ×5 (10:00→21:10)
--- NOTE | 2017-01-02 10:58 | CP.CCUPN ---
<Jason Rajan - Last Filed: 01/02/17 10:44> CCU Subjective - Physician Review Subjective (Free Text): 01/02/17 10:44 PGY-1 ICU progress note Pt seen and examined at bedside. On BiPAP and tolerating it well. Pt not wanting to talk due to sob, demented at baseline Critical Care Time Spent (in minutes): 35 CCU Objective - Vital Signs / Intake & Output Vital Signs (Last 4 hours): Vital Signs Temp Pulse Resp BP Pulse Ox 01/02/17 09:59 154/60 H 01/02/17 09:00 76 21 01/02/17 08:42 69 24 155/65 H 99 01/02/17 08:25 70 01/02/17 08:00 97.4 F L 76 17 96 01/02/17 07:42 74 21 148/62 98 01/02/17 07:00 68 23 98 Intake and Output (Last 8hrs): Intake & Output 01/01/17 01/02/17 01/02/17 22:59 06:59 14:59 Intake Total 500 Output Total 2900 Balance -2400 Intake: Intake, IV Amount 500 Right PICC 500 Oral 0 Output: Urine 2900 Urethral (Lewis) 2900 - Physical Exam Head: Positive for: Atraumatic, Normocephalic Pupils: Positive for: PERRL Extroacular Muscles: Positive for: EOMI Conjunctiva: Positive for: Normal Mouth: Positive for: Moist Mucous Membranes Neck: Positive for: Normal Range of Motion Respiratory/Chest: Positive for: Clear to Auscultation. Negative for: Respiratory Distress, Accessory Muscle Use Cardiovascular: Positive for: Regular Rate and Rhythm, Normal S1, S2 Abdomen: Positive for: Tenderness (appropriate around surgical wound), Normal Bowel Sounds, Other (midline incision C/D/I). Negative for: Distention Upper Extremity: Positive for: Normal Inspection. Negative for: Edema Lower Extremity: Positive for: Normal Inspection. Negative for: CALF TENDERNESS Neurological: Positive for: Speech Normal. Negative for: CN II-XII Intact Skin: Positive for: Warm, Dry Psychiatric: Positive for: Alert. Negative for: Oriented x 3 (demented at baseline) - Medications Active Medications: Active Medications Generic Name Dose Route Start Last Admin Trade Name Freq PRN Reason Stop Dose Admin Acetaminophen 650 mg 12/30/16 09:18 Tylenol 325mg Tab PO Q6 PRN Fever >100.4 F Albuterol/Ipratropium 3 ml 12/30/16 09:19 01/02/17 08:23 Duoneb 3 Mg/0.5 Mg (3 Ml) Ud INH 3 ml RQ6 DESIRAE Administration Diltiazem HCl 300 mg 12/16/16 10:00 01/02/17 09:58 Cardizem Cd PO 300 mg DAILY DESIRAE Administration Furosemide 60 mg 01/02/17 10:00 01/02/17 09:59 Lasix IVP 60 mg DAILY DESIRAE Administration Heparin Sodium (Porcine) 5,000 units 12/30/16 10:00 01/02/17 09:58 Heparin SC 5,000 units BID DESIRAE Administration Tigecycline 50 mg/ Sodium 100 mls @ 100 mls/hr 12/27/16 13:00 01/02/17 00:22 Chloride IVPB 100 mls/hr Q12H DESIRAE Administration Losartan Potassium 100 mg 12/16/16 10:00 01/02/17 10:01 Cozaar PO 100 mg DAILY DESIRAE Administration Neomycin/Polymyxin/Hydrocortisone 2 drop 12/16/16 14:00 01/02/17 10:01 Cortisporin Otic Soln AU 2 drop QID DESIRAE Administration Nystatin 1 applic 01/02/17 10:00 Nystop Topical Powder TOP BID [facility] Pantoprazole Sodium 40 mg 12/16/16 10:00 01/02/17 09:59 Protonix Inj IVP 40 mg DAILY DESIRAE Administration Phenol/Menthol 0 ml 12/18/16 08:13 12/24/16 10:54 Phenaseptic 1.4% Throat [place] 1 spr Q2H PRN Administration Sore Throat - Patient Studies Lab Studies: Microbiology Studies 12/26/16 22:00 Blood Culture - Final Blood NO GROWTH AFTER 5 DAYS Gram Stain - Final TEST NOT PERFORMED 12/26/16 22:00 Blood Culture - Final Blood NO GROWTH AFTER 5 DAYS Gram Stain - Final TEST NOT PERFORMED Lab Studies 01/02/17 01/02/17 01/02/17 Range/Units 06:29 06:29 06:29 WBC 13.8 H (4.8-10.8) K/uL RBC 3.62 L (3.80-5.20) Mil/uL Hgb 9.5 L (11.0-16.0) g/dL Hct 29.5 L (34.0-47.0) % MCV 81.6 (81.0-99.0) fL MCH 26.2 L (27.0-31.0) pg MCHC 32.1 L (33.0-37.0) g/dL RDW 15.8 H (11.5-14.5) % Plt Count 513 H D (130-400) K/uL MPV 7.2 (7.2-11.7) fL Neut % (Auto) 81.6 H (50.0-75.0) % Lymph % (Auto) 10.3 L (20.0-40.0) % Emanuel % (Auto) 4.0 (0.0-10.0) % Eos % (Auto) 2.1 (0.0-4.0) % Baso % (Auto) 2.0 (0.0-2.0) % Neut # 11.2 H (1.8-7.0) K/uL Lymph # 1.4 (1.0-4.3) K/uL Emanuel # 0.6 (0.0-0.8) K/uL Eos # 0.3 (0.0-0.7) K/uL Baso # 0.3 H (0.0-0.2) K/uL Puncture Site pCO2 (35-45) mm/Hg pO2 (80-100) mm/Hg HCO3 (21-28) mmol/L ABG pH (7.35-7.45) ABG Total CO2 (22-28) mmol/L ABG O2 Saturation (95-98) % ABG Base Excess (-2.0-3.0) mmol/L ABG Hemoglobin (11.7-17.4) g/dL ABG Carboxyhemoglobin (0.5-1.5) % POC ABG HHb (Measured) (0.0-5.0) % ABG Methemoglobin (0.0-3.0) % George Test VBG pH (7.32-7.43) VBG pCO2 (40-60) mmHg VBG HCO3 mmol/L VBG O2 Sat (Calc) (40-65) % VBG Base Excess (0.0-2.0) mmol/L A-a O2 Difference mm/Hg Respiratory Index Hgb O2 Saturation (95.0-98.0) % Liter Flow FiO2 % Inspiratory BiPAP Expiratory BiPAP Crit Value Called To Crit Value Called By Crit Value Read Back Blood Gas Notified Time Sodium 140 (132-148) mmol/L Potassium 3.5 L (3.6-5.2) mmol/L Chloride 103 (98-107) mmol/L Carbon Dioxide 30 (22-30) mmol/L Anion Gap 11 (10-20) BUN 22 H (7-17) mg/dL Creatinine 0.8 (0.7-1.2) MG/DL Est GFR ( Amer) > 60 Est GFR (Non-Af Amer) > 60 Random Glucose 94 (65-105) mg/dL Calcium 8.0 L (8.6-10.4) mg/dl Phosphorus 3.9 (2.5-4.5) mg/dL Magnesium 2.1 (1.6-2.3) mg/dL Procalcitonin 0.99 H (0.19-0.49) NG/ML 01/02/17 01/01/17 01/01/17 Range/Units 04:20 21:01 20:00 WBC (4.8-10.8) K/uL RBC (3.80-5.20) Mil/uL Hgb (11.0-16.0) g/dL Hct (34.0-47.0) % MCV (81.0-99.0) fL MCH (27.0-31.0) pg MCHC (33.0-37.0) g/dL RDW (11.5-14.5) % Plt Count (130-400) K/uL MPV (7.2-11.7) fL Neut % (Auto) (50.0-75.0) % Lymph % (Auto) (20.0-40.0) % Emanuel % (Auto) (0.0-10.0) % Eos % (Auto) (0.0-4.0) % Baso % (Auto) (0.0-2.0) % Neut # (1.8-7.0) K/uL Lymph # (1.0-4.3) K/uL Emanuel # (0.0-0.8) K/uL Eos # (0.0-0.7) K/uL Baso # (0.0-0.2) K/uL Puncture Site Rr Venos pCO2 39 (35-45) mm/Hg pO2 76 L 35 (80-100) mm/Hg HCO3 28.9 H (21-28) mmol/L ABG pH 7.48 H (7.35-7.45) ABG Total CO2 30.2 H (22-28) mmol/L ABG O2 Saturation 97.8 (95-98) % ABG Base Excess 5.1 H (-2.0-3.0) mmol/L ABG Hemoglobin 10.2 L (11.7-17.4) g/dL ABG Carboxyhemoglobin 1.8 H (0.5-1.5) % POC ABG HHb (Measured) 2.1 (0.0-5.0) % ABG Methemoglobin 1.1 (0.0-3.0) % George Test Pos Na VBG pH 7.47 H (7.32-7.43) VBG pCO2 34 L (40-60) mmHg VBG HCO3 25.4 mmol/L VBG O2 Sat (Calc) 73.6 H (40-65) % VBG Base Excess 1.5 (0.0-2.0) mmol/L A-a O2 Difference 303.0 mm/Hg Respiratory Index 4.0 Hgb O2 Saturation 94.9 L (95.0-98.0) % Liter Flow FiO2 60.0 % Inspiratory BiPAP 14 Expiratory BiPAP 7 Crit Value Called To Crit Value Called By Crit Value Read Back Blood Gas Notified Time Sodium 141 (132-148) mmol/L Potassium 3.4 L (3.6-5.2) mmol/L Chloride 106 (98-107) mmol/L Carbon Dioxide 26 (22-30) mmol/L Anion Gap 13 (10-20) BUN 23 H (7-17) mg/dL Creatinine 0.7 (0.7-1.2) MG/DL Est GFR ( Amer) > 60 Est GFR (Non-Af Amer) > 60 Random Glucose 98 (65-105) mg/dL Calcium 7.7 L (8.6-10.4) mg/dl Phosphorus 3.9 (2.5-4.5) mg/dL Magnesium 1.9 (1.6-2.3) mg/dL Procalcitonin (0.19-0.49) NG/ML 01/01/17 Range/Units 17:32 WBC (4.8-10.8) K/uL RBC (3.80-5.20) Mil/uL Hgb (11.0-16.0) g/dL Hct (34.0-47.0) % MCV (81.0-99.0) fL MCH (27.0-31.0) pg MCHC (33.0-37.0) g/dL RDW (11.5-14.5) % Plt Count (130-400) K/uL MPV (7.2-11.7) fL Neut % (Auto) (50.0-75.0) % Lymph % (Auto) (20.0-40.0) % Emanuel % (Auto) (0.0-10.0) % Eos % (Auto) (0.0-4.0) % Baso % (Auto) (0.0-2.0) % Neut # (1.8-7.0) K/uL Lymph # (1.0-4.3) K/uL Emanuel # (0.0-0.8) K/uL Eos # (0.0-0.7) K/uL Baso # (0.0-0.2) K/uL Puncture Site Lra pCO2 19 L* (35-45) mm/Hg pO2 174 H (80-100) mm/Hg HCO3 27.2 (21-28) mmol/L ABG pH 7.69 H* (7.35-7.45) ABG Total CO2 23.5 (22-28) mmol/L ABG O2 Saturation 101.0 H (95-98) % ABG Base Excess 2.8 (-2.0-3.0) mmol/L ABG Hemoglobin 6.6 L (11.7-17.4) g/dL ABG Carboxyhemoglobin 2.0 H (0.5-1.5) % POC ABG HHb (Measured) -1.0 L (0.0-5.0) % ABG Methemoglobin 0.6 (0.0-3.0) % George Test Pos VBG pH (7.32-7.43) VBG pCO2 (40-60) mmHg VBG HCO3 mmol/L VBG O2 Sat (Calc) (40-65) % VBG Base Excess (0.0-2.0) mmol/L A-a O2 Difference 159.0 mm/Hg Respiratory Index 0.9 Hgb O2 Saturation 98.4 H (95.0-98.0) % Liter Flow 15.0 FiO2 50.0 % Inspiratory BiPAP Expiratory BiPAP Crit Value Called To Anuel reynolds tutoring manager Crit Value Called By Navi jeffrey decorator consultant Crit Value Read Back Y Blood Gas Notified Time 1739 Sodium (132-148) mmol/L Potassium (3.6-5.2) mmol/L Chloride (98-107) mmol/L Carbon Dioxide (22-30) mmol/L Anion Gap (10-20) BUN (7-17) mg/dL Creatinine (0.7-1.2) MG/DL Est GFR ( Amer) Est GFR (Non-Af Amer) Random Glucose (65-105) mg/dL Calcium (8.6-10.4) mg/dl Phosphorus (2.5-4.5) mg/dL Magnesium (1.6-2.3) mg/dL Procalcitonin (0.19-0.49) NG/ML Laboratory Results - last 24 hr 01/01/17 01/01/17 01/01/17 17:32 20:00 21:01 WBC RBC Hgb Hct MCV MCH MCHC RDW Plt Count MPV Neut % (Auto) Lymph % (Auto) Emanuel % (Auto) Eos % (Auto) Baso % (Auto) Neut # Lymph # Emanuel # Eos # Baso # Puncture Site Lra Venos pCO2 19 L* pO2 174 H 35 HCO3 27.2 ABG pH 7.69 H* ABG Total CO2 23.5 ABG O2 Saturation 101.0 H ABG Base Excess 2.8 ABG Hemoglobin 6.6 L ABG Carboxyhemoglobin 2.0 H POC ABG HHb (Measured) -1.0 L ABG Methemoglobin 0.6 George Test Pos Na VBG pH 7.47 H VBG pCO2 34 L VBG HCO3 25.4 VBG O2 Sat (Calc) 73.6 H VBG Base Excess 1.5 A-a O2 Difference 159.0 Respiratory Index 0.9 Hgb O2 Saturation 98.4 H Liter Flow 15.0 FiO2 50.0 Inspiratory BiPAP Expiratory BiPAP Crit Value Called To Anuel reynolds np Crit Value Called By Navi jeffrey decorator consultant Crit Value Read Back Y Blood Gas Notified Time 1739 Sodium 141 Potassium 3.4 L Chloride 106 Carbon Dioxide 26 Anion Gap 13 BUN 23 H Creatinine 0.7 Est GFR ( Amer) > 60 Est GFR (Non-Af Amer) > 60 Random Glucose 98 Calcium 7.7 L Phosphorus 3.9 Magnesium 1.9 Procalcitonin 01/02/17 01/02/17 01/02/17 04:20 06:29 06:29 WBC 13.8 H RBC 3.62 L Hgb 9.5 L Hct 29.5 L MCV 81.6 MCH 26.2 L MCHC 32.1 L RDW 15.8 H Plt Count 513 H D MPV 7.2 Neut % (Auto) 81.6 H Lymph % (Auto) 10.3 L Emanuel % (Auto) 4.0 Eos % (Auto) 2.1 Baso % (Auto) 2.0 Neut # 11.2 H Lymph # 1.4 Emanuel # 0.6 Eos # 0.3 Baso # 0.3 H Puncture Site Rr pCO2 39 pO2 76 L HCO3 28.9 H ABG pH 7.48 H ABG Total CO2 30.2 H ABG O2 Saturation 97.8 ABG Base Excess 5.1 H ABG Hemoglobin 10.2 L ABG Carboxyhemoglobin 1.8 H POC ABG HHb (Measured) 2.1 ABG Methemoglobin 1.1 George Test Pos VBG pH VBG pCO2 VBG HCO3 VBG O2 Sat (Calc) VBG Base Excess A-a O2 Difference 303.0 Respiratory Index 4.0 Hgb O2 Saturation 94.9 L Liter Flow FiO2 60.0 Inspiratory BiPAP 14 Expiratory BiPAP 7 Crit Value Called To Crit Value Called By Crit Value Read Back Blood Gas Notified Time Sodium Potassium Chloride Carbon Dioxide Anion Gap BUN Creatinine Est GFR ( Amer) Est GFR (Non-Af Amer) Random Glucose Calcium Phosphorus Magnesium Procalcitonin 0.99 H 01/02/17 06:29 WBC RBC Hgb Hct MCV MCH MCHC RDW Plt Count MPV Neut % (Auto) Lymph % (Auto) Emanuel % (Auto) Eos % (Auto) Baso % (Auto) Neut # Lymph # Emanuel # Eos # Baso # Puncture Site pCO2 pO2 HCO3 ABG pH ABG Total CO2 ABG O2 Saturation ABG Base Excess ABG Hemoglobin ABG Carboxyhemoglobin POC ABG HHb (Measured) ABG Methemoglobin George Test VBG pH VBG pCO2 VBG HCO3 VBG O2 Sat (Calc) VBG Base Excess A-a O2 Difference Respiratory Index Hgb O2 Saturation Liter Flow FiO2 Inspiratory BiPAP Expiratory BiPAP Crit Value Called To Crit Value Called By Crit Value Read Back Blood Gas Notified Time Sodium 140 Potassium 3.5 L Chloride 103 Carbon Dioxide 30 Anion Gap 11 BUN 22 H Creatinine 0.8 Est GFR ( Amer) > 60 Est GFR (Non-Af Amer) > 60 Random Glucose 94 Calcium 8.0 L Phosphorus 3.9 Magnesium 2.1 Procalcitonin Review of Systems - Review of Systems Systems not reviewed;Unavailable: Dementia Assessment/Plan - Assessment and Plan (Free Text) Assessment: This is an 86 yo F with respiratory distress, secondary to likely pneumonia, now on BiPAP saturating well. Plan: Neuro: Alert and follows directions, baseline demented Cardiovascular: Hemodynamically stable. Continue home HTN meds Pulmonary: Respiratory alkalosis - resolved on BiPAP Chest CT - Probable multifocal upper lobe pneumonia. RIGHT middle, RIGHT lower , LEFT lower lobe collapse. Superimposed pneumonia not excluded. Suggest bronchoscopy. Followup to resolution to exclude underlying pathology. Saturating well on BiPAP Continue abx Continue duonebs Monitor Gastrointestinal: NPO for now No acute issues Hematology: r/o DVT of right leg - F/U US Endocrine: No acute issues Renal: No acute issues, monitor labs Good urine output Infectious Disease: Afebrile, mild leukocytosis Continue Tigecycline ID following GI Prophylaxis: Protonix DVT Prophylaxis: Heparin <Johnson Reis S - Last Filed: 01/02/17 16:19> CCU Objective - Vital Signs / Intake & Output Vital Signs (Last 4 hours): Vital Signs Temp Pulse Resp BP Pulse Ox 01/02/17 16:00 97.2 F L 72 23 100 01/02/17 15:57 73 01/02/17 15:42 76 21 143/61 96 01/02/17 15:00 74 19 98 01/02/17 14:42 66 19 155/60 H 98 01/02/17 14:00 78 24 100 01/02/17 13:42 70 22 151/58 H 99 01/02/17 13:39 72 01/02/17 13:00 65 24 100 01/02/17 12:42 64 24 137/59 L 100 Intake and Output (Last 8hrs): Intake & Output 01/02/17 01/02/17 01/02/17 06:59 14:59 22:59 Intake Total 500 100 0 Output Total 2900 550 150 Balance -2400 -450 -150 Intake: Intake, IV Amount 500 100 Right PICC 500 100 Oral 0 0 0 Output: Urine 2900 550 150 Urethral (Lewis) 2900 550 150 - Medications Active Medications: Active Medications Generic Name Dose Route Start Last Admin Trade Name Freq PRN Reason Stop Dose Admin Acetaminophen 650 mg 12/30/16 09:18 Tylenol 325mg Tab PO Q6 PRN Fever >100.4 F Albuterol/Ipratropium 3 ml 12/30/16 09:19 01/02/17 13:38 Duoneb 3 Mg/0.5 Mg (3 Ml) Ud INH 3 ml RQ6 DESIRAE Administration Diltiazem HCl 300 mg 12/16/16 10:00 01/02/17 09:58 Cardizem Cd PO 300 mg DAILY DESIRAE Administration Furosemide 60 mg 01/02/17 10:00 01/02/17 09:59 Lasix IVP 60 mg DAILY DESIRAE Administration Heparin Sodium (Porcine) 5,000 units 12/30/16 10:00 01/02/17 09:58 Heparin SC 5,000 units BID DESIRAE Administration Tigecycline 50 mg/ Sodium 100 mls @ 100 mls/hr 12/27/16 13:00 01/02/17 13:32 Chloride IVPB 100 mls/hr Q12H DESIRAE Administration Losartan Potassium 100 mg 12/16/16 10:00 01/02/17 10:01 Cozaar PO 100 mg DAILY DESIRAE Administration Neomycin/Polymyxin/Hydrocortisone 2 drop 12/16/16 14:00 01/02/17 13:34 Cortisporin Otic Soln AU 2 drop QID DESIRAE Administration Nystatin 1 applic 01/02/17 10:00 01/02/17 13:33 Nystop Topical Powder TOP 1 g BID DESIRAE Administration Pantoprazole Sodium 40 mg 01/03/17 10:00 Protonix Ec Tab PO DAILY DESIRAE Phenol/Menthol 0 ml 12/18/16 08:13 12/24/16 10:54 Phenaseptic 1.4% Throat [place] 1 spr Q2H PRN Administration Sore Throat - Patient Studies Lab Studies: Lab Studies 01/02/17 01/02/17 01/02/17 Range/Units 06:29 06:29 06:29 WBC 13.8 H (4.8-10.8) K/uL RBC 3.62 L (3.80-5.20) Mil/uL Hgb 9.5 L (11.0-16.0) g/dL Hct 29.5 L (34.0-47.0) % MCV 81.6 (81.0-99.0) fL MCH 26.2 L (27.0-31.0) pg MCHC 32.1 L (33.0-37.0) g/dL RDW 15.8 H (11.5-14.5) % Plt Count 513 H D (130-400) K/uL MPV 7.2 (7.2-11.7) fL Neut % (Auto) 81.6 H (50.0-75.0) % Lymph % (Auto) 10.3 L (20.0-40.0) % Emanuel % (Auto) 4.0 (0.0-10.0) % Eos % (Auto) 2.1 (0.0-4.0) % Baso % (Auto) 2.0 (0.0-2.0) % Neut # 11.2 H (1.8-7.0) K/uL Lymph # 1.4 (1.0-4.3) K/uL Emanuel # 0.6 (0.0-0.8) K/uL Eos # 0.3 (0.0-0.7) K/uL Baso # 0.3 H (0.0-0.2) K/uL Puncture Site pCO2 (35-45) mm/Hg pO2 (80-100) mm/Hg HCO3 (21-28) mmol/L ABG pH (7.35-7.45) ABG Total CO2 (22-28) mmol/L ABG O2 Saturation (95-98) % ABG Base Excess (-2.0-3.0) mmol/L ABG Hemoglobin (11.7-17.4) g/dL ABG Carboxyhemoglobin (0.5-1.5) % POC ABG HHb (Measured) (0.0-5.0) % ABG Methemoglobin (0.0-3.0) % George Test VBG pH (7.32-7.43) VBG pCO2 (40-60) mmHg VBG HCO3 mmol/L VBG O2 Sat (Calc) (40-65) % VBG Base Excess (0.0-2.0) mmol/L A-a O2 Difference mm/Hg Respiratory Index Hgb O2 Saturation (95.0-98.0) % Liter Flow FiO2 % Inspiratory BiPAP Expiratory BiPAP Crit Value Called To Crit Value Called By Crit Value Read Back Blood Gas Notified Time Sodium 140 (132-148) mmol/L Potassium 3.5 L (3.6-5.2) mmol/L Chloride 103 (98-107) mmol/L Carbon Dioxide 30 (22-30) mmol/L Anion Gap 11 (10-20) BUN 22 H (7-17) mg/dL Creatinine 0.8 (0.7-1.2) MG/DL Est GFR ( Amer) > 60 Est GFR (Non-Af Amer) > 60 Random Glucose 94 (65-105) mg/dL Calcium 8.0 L (8.6-10.4) mg/dl Phosphorus 3.9 (2.5-4.5) mg/dL Magnesium 2.1 (1.6-2.3) mg/dL Procalcitonin 0.99 H (0.19-0.49) NG/ML 01/02/17 01/01/17 01/01/17 Range/Units 04:20 21:01 20:00 WBC (4.8-10.8) K/uL RBC (3.80-5.20) Mil/uL Hgb (11.0-16.0) g/dL Hct (34.0-47.0) % MCV (81.0-99.0) fL MCH (27.0-31.0) pg MCHC (33.0-37.0) g/dL RDW (11.5-14.5) % Plt Count (130-400) K/uL MPV (7.2-11.7) fL Neut % (Auto) (50.0-75.0) % Lymph % (Auto) (20.0-40.0) % Emanuel % (Auto) (0.0-10.0) % Eos % (Auto) (0.0-4.0) % Baso % (Auto) (0.0-2.0) % Neut # (1.8-7.0) K/uL Lymph # (1.0-4.3) K/uL Emanuel # (0.0-0.8) K/uL Eos # (0.0-0.7) K/uL Baso # (0.0-0.2) K/uL Puncture Site Rr Venos pCO2 39 (35-45) mm/Hg pO2 76 L 35 (80-100) mm/Hg HCO3 28.9 H (21-28) mmol/L ABG pH 7.48 H (7.35-7.45) ABG Total CO2 30.2 H (22-28) mmol/L ABG O2 Saturation 97.8 (95-98) % ABG Base Excess 5.1 H (-2.0-3.0) mmol/L ABG Hemoglobin 10.2 L (11.7-17.4) g/dL ABG Carboxyhemoglobin 1.8 H (0.5-1.5) % POC ABG HHb (Measured) 2.1 (0.0-5.0) % ABG Methemoglobin 1.1 (0.0-3.0) % George Test Pos Na VBG pH 7.47 H (7.32-7.43) VBG pCO2 34 L (40-60) mmHg VBG HCO3 25.4 mmol/L VBG O2 Sat (Calc) 73.6 H (40-65) % VBG Base Excess 1.5 (0.0-2.0) mmol/L A-a O2 Difference 303.0 mm/Hg Respiratory Index 4.0 Hgb O2 Saturation 94.9 L (95.0-98.0) % Liter Flow FiO2 60.0 % Inspiratory BiPAP 14 Expiratory BiPAP 7 Crit Value Called To Crit Value Called By Crit Value Read Back Blood Gas Notified Time Sodium 141 (132-148) mmol/L Potassium 3.4 L (3.6-5.2) mmol/L Chloride 106 (98-107) mmol/L Carbon Dioxide 26 (22-30) mmol/L Anion Gap 13 (10-20) BUN 23 H (7-17) mg/dL Creatinine 0.7 (0.7-1.2) MG/DL Est GFR ( Amer) > 60 Est GFR (Non-Af Amer) > 60 Random Glucose 98 (65-105) mg/dL Calcium 7.7 L (8.6-10.4) mg/dl Phosphorus 3.9 (2.5-4.5) mg/dL Magnesium 1.9 (1.6-2.3) mg/dL Procalcitonin (0.19-0.49) NG/ML 01/01/17 Range/Units 17:32 WBC (4.8-10.8) K/uL RBC (3.80-5.20) Mil/uL Hgb (11.0-16.0) g/dL Hct (34.0-47.0) % MCV (81.0-99.0) fL MCH (27.0-31.0) pg MCHC (33.0-37.0) g/dL RDW (11.5-14.5) % Plt Count (130-400) K/uL MPV (7.2-11.7) fL Neut % (Auto) (50.0-75.0) % Lymph % (Auto) (20.0-40.0) % Emanuel % (Auto) (0.0-10.0) % Eos % (Auto) (0.0-4.0) % Baso % (Auto) (0.0-2.0) % Neut # (1.8-7.0) K/uL Lymph # (1.0-4.3) K/uL Emanuel # (0.0-0.8) K/uL Eos # (0.0-0.7) K/uL Baso # (0.0-0.2) K/uL Puncture Site Lra pCO2 19 L* (35-45) mm/Hg pO2 174 H (80-100) mm/Hg HCO3 27.2 (21-28) mmol/L ABG pH 7.69 H* (7.35-7.45) ABG Total CO2 23.5 (22-28) mmol/L ABG O2 Saturation 101.0 H (95-98) % ABG Base Excess 2.8 (-2.0-3.0) mmol/L ABG Hemoglobin 6.6 L (11.7-17.4) g/dL ABG Carboxyhemoglobin 2.0 H (0.5-1.5) % POC ABG HHb (Measured) -1.0 L (0.0-5.0) % ABG Methemoglobin 0.6 (0.0-3.0) % George Test Pos VBG pH (7.32-7.43) VBG pCO2 (40-60) mmHg VBG HCO3 mmol/L VBG O2 Sat (Calc) (40-65) % VBG Base Excess (0.0-2.0) mmol/L A-a O2 Difference 159.0 mm/Hg Respiratory Index 0.9 Hgb O2 Saturation 98.4 H (95.0-98.0) % Liter Flow 15.0 FiO2 50.0 % Inspiratory BiPAP Expiratory BiPAP Crit Value Called To Anuel reynolds tutoring manager Crit Value Called By Navi jeffrey decorator consultant Crit Value Read Back Y Blood Gas Notified Time 1739 Sodium (132-148) mmol/L Potassium (3.6-5.2) mmol/L Chloride (98-107) mmol/L Carbon Dioxide (22-30) mmol/L Anion Gap (10-20) BUN (7-17) mg/dL Creatinine (0.7-1.2) MG/DL Est GFR ( Amer) Est GFR (Non-Af Amer) Random Glucose (65-105) mg/dL Calcium (8.6-10.4) mg/dl Phosphorus (2.5-4.5) mg/dL Magnesium (1.6-2.3) mg/dL Procalcitonin (0.19-0.49) NG/ML Laboratory Results - last 24 hr 01/01/17 01/01/17 01/01/17 17:32 20:00 21:01 WBC RBC Hgb Hct MCV MCH MCHC RDW Plt Count MPV Neut % (Auto) Lymph % (Auto) Emanuel % (Auto) Eos % (Auto) Baso % (Auto) Neut # Lymph # Emanuel # Eos # Baso # Puncture Site Lra Venos pCO2 19 L* pO2 174 H 35 HCO3 27.2 ABG pH 7.69 H* ABG Total CO2 23.5 ABG O2 Saturation 101.0 H ABG Base Excess 2.8 ABG Hemoglobin 6.6 L ABG Carboxyhemoglobin 2.0 H POC ABG HHb (Measured) -1.0 L ABG Methemoglobin 0.6 George Test Pos Na VBG pH 7.47 H VBG pCO2 34 L VBG HCO3 25.4 VBG O2 Sat (Calc) 73.6 H VBG Base Excess 1.5 A-a O2 Difference 159.0 Respiratory Index 0.9 Hgb O2 Saturation 98.4 H Liter Flow 15.0 FiO2 50.0 Inspiratory BiPAP Expiratory BiPAP Crit Value Called To Anuel reynolds np Crit Value Called By Navi jeffrey decorator consultant Crit Value Read Back Y Blood Gas Notified Time 1739 Sodium 141 Potassium 3.4 L Chloride 106 Carbon Dioxide 26 Anion Gap 13 BUN 23 H Creatinine 0.7 Est GFR ( Amer) > 60 Est GFR (Non-Af Amer) > 60 Random Glucose 98 Calcium 7.7 L Phosphorus 3.9 Magnesium 1.9 Procalcitonin 01/02/17 01/02/17 01/02/17 04:20 06:29 06:29 WBC 13.8 H RBC 3.62 L Hgb 9.5 L Hct 29.5 L MCV 81.6 MCH 26.2 L MCHC 32.1 L RDW 15.8 H Plt Count 513 H D MPV 7.2 Neut % (Auto) 81.6 H Lymph % (Auto) 10.3 L Emanuel % (Auto) 4.0 Eos % (Auto) 2.1 Baso % (Auto) 2.0 Neut # 11.2 H Lymph # 1.4 Emanuel # 0.6 Eos # 0.3 Baso # 0.3 H Puncture Site Rr pCO2 39 pO2 76 L HCO3 28.9 H ABG pH 7.48 H ABG Total CO2 30.2 H ABG O2 Saturation 97.8 ABG Base Excess 5.1 H ABG Hemoglobin 10.2 L ABG Carboxyhemoglobin 1.8 H POC ABG HHb (Measured) 2.1 ABG Methemoglobin 1.1 George Test Pos VBG pH VBG pCO2 VBG HCO3 VBG O2 Sat (Calc) VBG Base Excess A-a O2 Difference 303.0 Respiratory Index 4.0 Hgb O2 Saturation 94.9 L Liter Flow FiO2 60.0 Inspiratory BiPAP 14 Expiratory BiPAP 7 Crit Value Called To Crit Value Called By Crit Value Read Back Blood Gas Notified Time Sodium Potassium Chloride Carbon Dioxide Anion Gap BUN Creatinine Est GFR ( Amer) Est GFR (Non-Af Amer) Random Glucose Calcium Phosphorus Magnesium Procalcitonin 0.99 H 01/02/17 06:29 WBC RBC Hgb Hct MCV MCH MCHC RDW Plt Count MPV Neut % (Auto) Lymph % (Auto) Emanuel % (Auto) Eos % (Auto) Baso % (Auto) Neut # Lymph # Emanuel # Eos # Baso # Puncture Site pCO2 pO2 HCO3 ABG pH ABG Total CO2 ABG O2 Saturation ABG Base Excess ABG Hemoglobin ABG Carboxyhemoglobin POC ABG HHb (Measured) ABG Methemoglobin George Test VBG pH VBG pCO2 VBG HCO3 VBG O2 Sat (Calc) VBG Base Excess A-a O2 Difference Respiratory Index Hgb O2 Saturation Liter Flow FiO2 Inspiratory BiPAP Expiratory BiPAP Crit Value Called To Crit Value Called By Crit Value Read Back Blood Gas Notified Time Sodium 140 Potassium 3.5 L Chloride 103 Carbon Dioxide 30 Anion Gap 11 BUN 22 H Creatinine 0.8 Est GFR ( Amer) > 60 Est GFR (Non-Af Amer) > 60 Random Glucose 94 Calcium 8.0 L Phosphorus 3.9 Magnesium 2.1 Procalcitonin Attending/Attestation - Attestation I have personally seen and examined this patient.: Yes I have fully participated in the care of the patient.: Yes I have reviewed all pertinent clinical information: Yes Notes (Text): 01/02/17 16:15 Patient seen and examined. Case discussed with staff in the morning rounds. Transfer to ICU yesterday for respiratory alkalosis and lethargy Condition much improved CAT scan of the head negative and chest consistent with possible pneumonia Continue antibiotics as per infectious disease Arterial blood gas much improved Continue present treatment good Urine output
--- NOTE | 2017-01-02 16:18 | CP.PCM.PN ---
Subjective - Date & Time of Evaluation Date of Evaluation: 01/02/17 Time of Evaluation: 16:18 - Subjective Subjective: PATIENT TRANSFERRED TO ICU LAST NIGHT. PRESENTLY ON BIPAP. AWAKE AND RESPONSIVE. DENIES CHEST PAIN B/L LE EDEMA. FAMILY AT BEDSIDE Objective - Vital Signs/Intake and Output Vital Signs (last 24 hours): Temp Pulse Resp BP Pulse Ox 97.2 F L 72 23 143/61 100 01/02/17 16:00 01/02/17 16:00 01/02/17 16:00 01/02/17 15:42 01/02/17 16:00 Intake and Output: 01/02/17 01/02/17 06:59 18:59 Intake Total 500 100 Output Total 2900 700 Balance -2400 -600 - Medications Medications: Current Medications Acetaminophen (Tylenol 325mg Tab) 650 mg PO Q6 PRN PRN Reason: Fever >100.4 F Albuterol/Ipratropium (Duoneb 3 Mg/0.5 Mg (3 Ml) Ud) 3 ml INH RQ6 [facility] Last Admin: 01/02/17 13:38 Dose: 3 ml Diltiazem HCl (Cardizem Cd) 300 mg PO DAILY [facility] Last Admin: 01/02/17 09:58 Dose: 300 mg Furosemide (Lasix) 60 mg IVP DAILY [facility] Last Admin: 01/02/17 09:59 Dose: 60 mg Heparin Sodium (Porcine) (Heparin) 5,000 units SC BID [facility] Last Admin: 01/02/17 09:58 Dose: 5,000 units Tigecycline 50 mg/ Sodium (Chloride) 100 mls @ 100 mls/hr IVPB Q12H [facility] Last Admin: 01/02/17 13:32 Dose: 100 mls/hr Losartan Potassium (Cozaar) 100 mg PO DAILY [facility] Last Admin: 01/02/17 10:01 Dose: 100 mg Neomycin/Polymyxin/Hydrocortisone (Cortisporin Otic Soln) 2 drop AU QID [facility] Last Admin: 01/02/17 13:34 Dose: 2 drop Nystatin (Nystop Topical Powder) 1 applic TOP BID [facility] Last Admin: 01/02/17 13:33 Dose: 1 g Pantoprazole Sodium (Protonix Ec Tab) 40 mg PO DAILY [facility] Phenol/Menthol (Phenaseptic 1.4% Throat [place]) 0 ml MT Q2H PRN PRN Reason: Sore Throat Last Admin: 12/24/16 10:54 Dose: 1 spr - Labs Labs: 01/02/17 06:29 01/02/17 06:29 PT 12.6 SECONDS (9.7-12.2) H 12/21/16 11:39 INR 1.1 12/21/16 11:39 APTT 25 SECONDS (21-34) 12/21/16 11:39 - Constitutional Appears: No Acute Distress - Head Exam Head Exam: NORMAL INSPECTION - Eye Exam Eye Exam: EOMI, PERRL - ENT Exam ENT Exam: Normal Oropharynx - Neck Exam Neck Exam: Normal Inspection - Respiratory Exam Respiratory Exam: Rales, Rhonchi - Cardiovascular Exam Cardiovascular Exam: REGULAR RHYTHM, +S1, +S2 - GI/Abdominal Exam GI & Abdominal Exam: Soft, Normal Bowel Sounds (MIDLINE SCAR WELL-HEALED.) - Extremities Exam Extremities Exam: Pedal Edema (2+). absent: Calf Tenderness - Neurological Exam Neurological Exam: Awake - Psychiatric Exam Psychiatric exam: Normal Affect - Skin Skin Exam: Normal Color, Warm Assessment and Plan (1) Fever Status: Acute (2) Pneumonia Assessment & Plan: CT CHEST W/O CONTRAST NOTED 01/01/17 . multifocal upper lobe pneumonia.RML,RLL,LLL SUPERIMPOSED COLLAPSE. PLAN; PANCULTURES. sPUTUM gRAM STAIN AND CULTURE. SPUTUM FOR AFB X3 QUANTIFERON gOLD tb TEST. ESR. ON iv TYGACIL 50 MG EVERY 12 HOURLY.. ADD iv AVELOX 400 MG ONCE A DAY DAILY01/02 ?FOB AND DX/AND THERAPEUTIC FOR SUPERIMPOSE COLLAPSE LOWER LOBES. WILL DISCUSS WITH PULMONARY/CARGO SERVICE AGENT Status: Suspected (3) Small bowel obstruction Status: Acute (4) COPD exacerbation Status: Acute (5) Diabetes mellitus Status: Chronic (6) Hypertension Status: Chronic (7) Anemia Status: Acute
[2017-01-02] MEDS: Moxifloxacin IV 400mg/250ml NS 400 MG/250 ML BAG IVPB SCH (17:58)
--- NOTE | 2017-01-02 20:41 | RAD ---
HISTORY: Desaturating COMPARISON: 12/31/2016 FINDINGS: LUNGS: Lines and tubes in stable position. Mild venous congestion. Patchy bibasilar airspace opacities with trace bilateral pleural effusions. Linear density projects at the right lung base possibly external. Clinical correlation. PLEURA: As above. CARDIOVASCULAR: Cardiomegaly. OSSEOUS STRUCTURES: Degenerative changes the spine and shoulders. VISUALIZED UPPER ABDOMEN: Normal. OTHER FINDINGS: None. IMPRESSION: Lines and tubes in stable position. Mild venous congestion. Patchy bibasilar airspace opacities with trace bilateral pleural effusions. Linear density projects at the right lung base possibly external. Clinical correlation. Cardiomegaly.
[2017-01-03] MEDS: Albuterol-Ipratrop 3 mg / 0.5 (3 ml) UD INH SCH ×4 (01:26→19:34)
[2017-01-03 06:26] LABS: BASO % 0.2 % (0.0-2.0); EOS # 0.2 K/uL (0.0-0.7); EOS % 1.1 % (0.0-4.0); LYMPH # 1.5 K/uL (1.0-4.3); LYMPH % 9.3 % (20.0-40.0); MEAN CELL VOLUME 82.5 fL (81.0-99.0); MEAN CORPUSCULAR HGB CONC 32.8 g/dL (33.0-37.0); MEAN PLATELET VOLUME 7.1 fL (7.2-11.7); MONO # 0.8 K/uL (0.0-0.8); MONO % 4.6 % (0.0-10.0); NRBC % 0.1 % (0.0-2.0); PLATELET COUNT 462 K/uL (130-400); RED CELL DISTRIBUTION WIDTH 16.2 % (11.5-14.5); WHITE BLOOD COUNT 16.6 K/uL (4.8-10.8)
[2017-01-03 06:46] LABS: CHLORIDE 107 mmol/L (98-107); SODIUM 142 mmol/L (132-148)
[2017-01-03 06:49] LABS: ALB/GLOB RATIO 0.6 (1.0-2.1); ALKALINE PHOSPHATASE 71 U/L (38-126); AST/SGOT 26 U/L (14-36); BILIRUBIN,TOTAL 0.6 mg/dL (0.2-1.3); BLOOD UREA NITROGEN 27 mg/dL (7-17); CARBON DIOXIDE 26 mmol/L (22-30); GFR AFRICAN-AMERICAN > 60; GLUCOSE,RANDOM 72 mg/dL (65-105); TOTAL PROTEIN 5.6 g/dL (6.3-8.3)
[2017-01-03 06:50] LABS: ALT/SGPT 14 U/L (9-52); CALCIUM 7.7 mg/dl (8.6-10.4); MAGNESIUM 2.1 mg/dL (1.6-2.3)
[2017-01-03 08:23] LABS: METAMYELOCYTE 2 % (0-0); MYELOCYTE 1 % (0-0); NEUTROPHIL 79 % (50-75); TOTAL CELLS COUNTED 100
[2017-01-03 08:25] LABS: LARGE PLATELETS PRESENT
[2017-01-03] MEDS: diltiaZEM 300 mg/24 Hours CD Cap PO SCH (10:23)
[2017-01-03] MEDS: Pantoprazole 40 mg EC Tab PO SCH (10:23)
[2017-01-03] MEDS: Neomycin/Polymyxin/Hydrocort Otic Soln BOTTLE AU SCH ×4 (10:23→21:08)
--- NOTE | 2017-01-03 10:36 | CP.CCUPN ---
<Jason Rajan - Last Filed: 01/03/17 10:34> CCU Subjective - Physician Review Subjective (Free Text): 01/03/17 10:34 PGY-1 ICU progress note Pt seen and examined at bedside. No overnight events, however, pt very lethargic this morning. Pt continues to be on BiPAP and saturating well. Will follow commands but speech is very limited. Critical Care Time Spent (in minutes): 35 CCU Objective - Vital Signs / Intake & Output Vital Signs (Last 4 hours): Vital Signs Temp Pulse Resp BP Pulse Ox 01/03/17 10:22 130/52 L 01/03/17 10:00 78 25 H 99 01/03/17 09:42 79 24 130/52 L 99 01/03/17 09:00 80 20 98 01/03/17 08:42 82 21 127/52 L 98 01/03/17 08:21 78 01/03/17 08:00 97.6 F 78 24 98 01/03/17 07:42 78 23 126/53 L 97 01/03/17 07:00 75 24 97 01/03/17 06:42 76 27 H 126/49 L 99 Intake and Output (Last 8hrs): Intake & Output 01/02/17 01/03/17 01/03/17 22:59 06:59 14:59 Intake Total 250 100 0 Output Total 415 305 80 Balance -165 -205 -80 Weight 210 lb Intake: Intake, IV Amount 250 100 Right PICC 250 100 Oral 0 0 Output: Urine 415 305 80 Urethral (Lewis) 415 305 80 Other: # Bowel Movements 1 - Physical Exam Head: Positive for: Atraumatic, Normocephalic Pupils: Positive for: PERRL Extroacular Muscles: Positive for: EOMI Conjunctiva: Positive for: Normal Mouth: Positive for: Moist Mucous Membranes Neck: Positive for: Normal Range of Motion Respiratory/Chest: Positive for: Clear to Auscultation, Other (on BiPAP). Negative for: Respiratory Distress, Accessory Muscle Use Cardiovascular: Positive for: Regular Rate and Rhythm, Normal S1, S2 Abdomen: Positive for: Tenderness (appropriate around surgical wound), Normal Bowel Sounds, Other (midline incision C/D/I). Negative for: Distention Upper Extremity: Positive for: Normal Inspection. Negative for: Edema Lower Extremity: Positive for: Normal Inspection, Edema. Negative for: CALF TENDERNESS Neurological: Positive for: Motor Func Grossly Intact. Negative for: CN II-XII Intact Skin: Positive for: Warm, Dry Psychiatric: Positive for: Alert. Negative for: Oriented x 3 (demented at baseline) - Medications Active Medications: Active Medications Generic Name Dose Route Start Last Admin Trade Name Freq PRN Reason Stop Dose Admin Acetaminophen 650 mg 12/30/16 09:18 Tylenol 325mg Tab PO Q6 PRN Fever >100.4 F Albuterol/Ipratropium 3 ml 12/30/16 09:19 01/03/17 08:21 Duoneb 3 Mg/0.5 Mg (3 Ml) Ud INH 3 ml RQ6 [facility] Administration Diltiazem HCl 300 mg 12/16/16 10:00 01/03/17 10:23 Cardizem Cd PO 300 mg DAILY [facility] Administration Furosemide 60 mg 01/02/17 10:00 01/03/17 10:22 Lasix IVP 60 mg DAILY [facility] Administration Heparin Sodium (Porcine) 5,000 units 12/30/16 10:00 01/03/17 10:22 Heparin SC 5,000 units BID [facility] Administration Tigecycline 50 mg/ Sodium 100 mls @ 100 mls/hr 12/27/16 13:00 01/03/17 00:12 Chloride IVPB 100 mls/hr Q12H [facility] Administration Moxifloxacin HCl 400 mg in 250 mls @ 167 mls/hr 01/02/17 17:00 01/02/17 17:58 Avelox Iv 400mg/250ml Ns IVPB 167 mls/hr Q24H [facility] Administration Losartan Potassium 100 mg 12/16/16 10:00 01/03/17 10:23 Cozaar PO 100 mg DAILY [facility] Administration Neomycin/Polymyxin/Hydrocortisone 2 drop 12/16/16 14:00 01/03/17 10:23 Cortisporin Otic Soln AU 2 drop QID [facility] Administration Nystatin 1 applic 01/02/17 10:00 01/03/17 10:23 Nystop Topical Powder TOP 1 g BID [facility] Administration Pantoprazole Sodium 40 mg 01/03/17 10:00 01/03/17 10:23 Protonix Ec Tab PO 40 mg DAILY [facility] Administration Phenol/Menthol 0 ml 12/18/16 08:13 05/14/17 10:54 Phenaseptic 1.4% Throat [place] 1 spr Q2H PRN Administration Sore Throat - Patient Studies Lab Studies: Lab Studies 01/03/17 01/03/17 Range/Units 06:17 06:17 WBC 16.6 H (4.8-10.8) K/uL RBC 3.63 L (3.80-5.20) Mil/uL Hgb 9.8 L (11.0-16.0) g/dL Hct 30.0 L (34.0-47.0) % MCV 82.5 (81.0-99.0) fL MCH 27.0 (27.0-31.0) pg MCHC 32.8 L (33.0-37.0) g/dL RDW 16.2 H (11.5-14.5) % Plt Count 462 H (130-400) K/uL MPV 7.1 L (7.2-11.7) fL Neut % (Auto) 84.8 H (50.0-75.0) % Lymph % (Auto) 9.3 L (20.0-40.0) % Hill % (Auto) 4.6 (0.0-10.0) % Eos % (Auto) 1.1 (0.0-4.0) % Baso % (Auto) 0.2 (0.0-2.0) % Neut # 14.1 H (1.8-7.0) K/uL Lymph # 1.5 (1.0-4.3) K/uL [place] # 0.8 (0.0-0.8) K/uL Eos # 0.2 (0.0-0.7) K/uL Baso # 0.0 (0.0-0.2) K/uL Neutrophils % (Manual) 79 H (50-75) % Band Neutrophils % 4 H (0-2) % Lymphocytes % (Manual) 10 L (20-40) % Monocytes % (Manual) 4 (0-10) % Metamyelocytes % 2 H (0-0) % Myelocytes % 1 H (0-0) % Platelet Estimate Slightly increased H (NORMAL) Large Platelets Present Hypochromasia (manual) Slight Anisocytosis (manual) Slight Ovalocytes Slight Sodium 142 (132-148) mmol/L Potassium 4.0 (3.6-5.2) mmol/L Chloride 107 (98-107) mmol/L Carbon Dioxide 26 (22-30) mmol/L Anion Gap 14 (10-20) BUN 27 H (7-17) mg/dL Creatinine 0.8 (0.7-1.2) MG/DL Est GFR ( Amer) > 60 Est GFR (Non-Af Amer) > 60 Random Glucose 72 (65-105) mg/dL Calcium 7.7 L (8.6-10.4) mg/dl Phosphorus 4.0 (2.5-4.5) mg/dL Magnesium 2.1 (1.6-2.3) mg/dL Total Bilirubin 0.6 (0.2-1.3) mg/dL AST 26 (14-36) U/L ALT 14 (9-52) U/L Alkaline Phosphatase 71 (38-126) U/L Total Protein 5.6 L (6.3-8.3) g/dL Albumin 2.2 L (3.5-5.0) g/dL Globulin 3.5 (2.2-3.9) gm/dL Albumin/Globulin Ratio 0.6 L (1.0-2.1) Laboratory Results - last 24 hr 01/03/17 01/03/17 06:17 06:17 WBC 16.6 H RBC 3.63 L Hgb 9.8 L Hct 30.0 L MCV 82.5 MCH 27.0 MCHC 32.8 L RDW 16.2 H Plt Count 462 H MPV 7.1 L Neut % (Auto) 84.8 H Lymph % (Auto) 9.3 L Hill % (Auto) 4.6 Eos % (Auto) 1.1 Baso % (Auto) 0.2 Neut # 14.1 H Lymph # 1.5 Hill # 0.8 Eos # 0.2 Baso # 0.0 Neutrophils % (Manual) 79 H Band Neutrophils % 4 H Lymphocytes % (Manual) 10 L Monocytes % (Manual) 4 Metamyelocytes % 2 H Myelocytes % 1 H Platelet Estimate Slightly increased H Large Platelets Present Hypochromasia (manual) Slight Anisocytosis (manual) Slight Ovalocytes Slight Sodium 142 Potassium 4.0 Chloride 107 Carbon Dioxide 26 Anion Gap 14 BUN 27 H Creatinine 0.8 Est GFR ( Amer) > 60 Est GFR (Non-Af Amer) > 60 Random Glucose 72 Calcium 7.7 L Phosphorus 4.0 Magnesium 2.1 Total Bilirubin 0.6 AST 26 ALT 14 Alkaline Phosphatase 71 Total Protein 5.6 L Albumin 2.2 L Globulin 3.5 Albumin/Globulin Ratio 0.6 L Review of Systems - Review of Systems Systems not reviewed;Unavailable: Dementia Assessment/Plan - Assessment and Plan (Free Text) Assessment: This is an 86 yo F with respiratory distress, secondary to likely pneumonia, now on BiPAP saturating well but lethargic. Plan: Neuro: Alert and follows directions, baseline demented Cardiovascular: Hemodynamically stable. Continue home HTN meds Pulmonary: Continue BiPAP, tolerating well and saturating ok Chest CT - Probable multifocal upper lobe pneumonia. RIGHT middle, RIGHT lower , LEFT lower lobe collapse. Superimposed pneumonia not excluded. Suggest bronchoscopy. Followup to resolution to exclude underlying pathology. Continue Tigecycline and added Avelox per ID Continue duonebs Follow cultures Monitor Gastrointestinal: NPO for now No acute issues Hematology: r/o DVT of right leg - F/U US Endocrine: No acute issues Renal: No acute issues, monitor labs Good urine output Infectious Disease: Afebrile, increasing WBC count Continue Tigecycline, Avelox added by ID ID following - pancultures, sputum for AFB, Quant gold TB test GI Prophylaxis: Protonix DVT Prophylaxis: Heparin <Johnson Reis S - Last Filed: 01/03/17 17:56> CCU Objective - Vital Signs / Intake & Output Vital Signs (Last 4 hours): Vital Signs Pulse Resp BP Pulse Ox 01/03/17 15:40 80 01/03/17 15:00 80 21 97 01/03/17 14:42 81 19 120/52 L 98 Intake and Output (Last 8hrs): Intake & Output 01/03/17 01/03/17 01/03/17 06:59 14:59 22:59 Intake Total 100 100 0 Output Total 305 930 150 Balance -205 -830 -150 Weight 210 lb Intake: Intake, IV Amount 100 100 Right PICC 100 100 Oral 0 0 Output: Urine 305 930 150 Urethral (Lewis) 305 930 150 Other: # Bowel Movements 1 - Medications Active Medications: Active Medications Generic Name Dose Route Start Last Admin Trade Name Freq PRN Reason Stop Dose Admin Acetaminophen 650 mg 12/30/16 09:18 Tylenol 325mg Tab PO Q6 PRN Fever >100.4 F Albuterol/Ipratropium 3 ml 12/30/16 09:19 01/03/17 13:25 Duoneb 3 Mg/0.5 Mg (3 Ml) Ud INH 3 ml RQ6 [facility] Administration Diltiazem HCl 300 mg 12/16/16 10:00 01/03/17 10:23 Cardizem Cd PO 300 mg DAILY [facility] Administration Furosemide 60 mg 01/02/17 10:00 01/03/17 10:22 Lasix IVP 60 mg DAILY [facility] Administration Heparin Sodium (Porcine) 5,000 units 12/30/16 10:00 01/03/17 17:29 Heparin SC 5,000 units BID [facility] Administration Tigecycline 50 mg/ Sodium 100 mls @ 100 mls/hr 12/27/16 13:00 01/03/17 13:47 Chloride IVPB 100 mls/hr Q12H [facility] Administration Moxifloxacin HCl 400 mg in 250 mls @ 167 mls/hr 01/02/17 17:00 01/03/17 17:28 Avelox Iv 400mg/250ml Ns IVPB 167 mls/hr Q24H [facility] Administration Vancomycin/Sodium Chloride 1 gm in 200 mls @ 133 mls/hr 01/03/17 17:00 Vancocin IVPB 01/08/17 17:01 Q12H [facility] Losartan Potassium 100 mg 12/16/16 10:00 01/03/17 10:23 Cozaar PO 100 mg DAILY [facility] Administration Neomycin/Polymyxin/Hydrocortisone 2 drop 12/16/16 14:00 01/03/17 17:29 Cortisporin Otic Soln AU 2 drop QID [facility] Administration Nystatin 1 applic 01/02/17 10:00 01/03/17 17:34 Nystop Topical Powder TOP 1 g BID [facility] Administration Pantoprazole Sodium 40 mg 01/03/17 10:00 01/03/17 10:23 Protonix Ec Tab PO 40 mg DAILY [facility] Administration Phenol/Menthol 0 ml 12/18/16 08:13 12/24/16 10:54 Phenaseptic 1.4% Throat [place] 1 spr Q2H PRN Administration Sore Throat - Patient Studies Lab Studies: Microbiology Studies 01/01/17 20:45 MRSA Culture (Admit) - Final Nose MRSA DETECTED Lab Studies 01/03/17 01/03/17 Range/Units 06:17 06:17 WBC 16.6 H (4.8-10.8) K/uL RBC 3.63 L (3.80-5.20) Mil/uL Hgb 9.8 L (11.0-16.0) g/dL Hct 30.0 L (34.0-47.0) % MCV 82.5 (81.0-99.0) fL MCH 27.0 (27.0-31.0) pg MCHC 32.8 L (33.0-37.0) g/dL RDW 16.2 H (11.5-14.5) % Plt Count 462 H (130-400) K/uL MPV 7.1 L (7.2-11.7) fL Neut % (Auto) 84.8 H (50.0-75.0) % Lymph % (Auto) 9.3 L (20.0-40.0) % Hill % (Auto) 4.6 (0.0-10.0) % Eos % (Auto) 1.1 (0.0-4.0) % Baso % (Auto) 0.2 (0.0-2.0) % Neut # 14.1 H (1.8-7.0) K/uL Lymph # 1.5 (1.0-4.3) K/uL [place] # 0.8 (0.0-0.8) K/uL Eos # 0.2 (0.0-0.7) K/uL Baso # 0.0 (0.0-0.2) K/uL Neutrophils % (Manual) 79 H (50-75) % Band Neutrophils % 4 H (0-2) % Lymphocytes % (Manual) 10 L (20-40) % Monocytes % (Manual) 4 (0-10) % Metamyelocytes % 2 H (0-0) % Myelocytes % 1 H (0-0) % Platelet Estimate Slightly increased H (NORMAL) Large Platelets Present Hypochromasia (manual) Slight Anisocytosis (manual) Slight Ovalocytes Slight Sodium 142 (132-148) mmol/L Potassium 4.0 (3.6-5.2) mmol/L Chloride 107 (98-107) mmol/L Carbon Dioxide 26 (22-30) mmol/L Anion Gap 14 (10-20) BUN 27 H (7-17) mg/dL Creatinine 0.8 (0.7-1.2) MG/DL Est GFR ( Amer) > 60 Est GFR (Non-Af Amer) > 60 Random Glucose 72 (65-105) mg/dL Calcium 7.7 L (8.6-10.4) mg/dl Phosphorus 4.0 (2.5-4.5) mg/dL Magnesium 2.1 (1.6-2.3) mg/dL Total Bilirubin 0.6 (0.2-1.3) mg/dL AST 26 (14-36) U/L ALT 14 (9-52) U/L Alkaline Phosphatase 71 (38-126) U/L Total Protein 5.6 L (6.3-8.3) g/dL Albumin 2.2 L (3.5-5.0) g/dL Globulin 3.5 (2.2-3.9) gm/dL Albumin/Globulin Ratio 0.6 L (1.0-2.1) Laboratory Results - last 24 hr 01/03/17 01/03/17 06:17 06:17 WBC 16.6 H RBC 3.63 L Hgb 9.8 L Hct 30.0 L MCV 82.5 MCH 27.0 MCHC 32.8 L RDW 16.2 H Plt Count 462 H MPV 7.1 L Neut % (Auto) 84.8 H Lymph % (Auto) 9.3 L Hill % (Auto) 4.6 Eos % (Auto) 1.1 Baso % (Auto) 0.2 Neut # 14.1 H Lymph # 1.5 Hill # 0.8 Eos # 0.2 Baso # 0.0 Neutrophils % (Manual) 79 H Band Neutrophils % 4 H Lymphocytes % (Manual) 10 L Monocytes % (Manual) 4 Metamyelocytes % 2 H Myelocytes % 1 H Platelet Estimate Slightly increased H Large Platelets Present Hypochromasia (manual) Slight Anisocytosis (manual) Slight Ovalocytes Slight Sodium 142 Potassium 4.0 Chloride 107 Carbon Dioxide 26 Anion Gap 14 BUN 27 H Creatinine 0.8 Est GFR ( Amer) > 60 Est GFR (Non-Af Amer) > 60 Random Glucose 72 Calcium 7.7 L Phosphorus 4.0 Magnesium 2.1 Total Bilirubin 0.6 AST 26 ALT 14 Alkaline Phosphatase 71 Total Protein 5.6 L Albumin 2.2 L Globulin 3.5 Albumin/Globulin Ratio 0.6 L Attending/Attestation - Attestation I have personally seen and examined this patient.: Yes I have fully participated in the care of the patient.: Yes I have reviewed all pertinent clinical information: Yes Notes (Text): 01/03/17 17:55 Patient seen and examined in the intensive care unit. Case discussed with house staff in the morning rounds. Remains on BiPAP saturating 100% FiO2 50% Continue antibiotics as per infectious disease Continue bronchodilators
--- NOTE | 2017-01-03 13:15 | CP.PCM.PN ---
Subjective - Date & Time of Evaluation Date of Evaluation: 01/02/17 Time of Evaluation: 12:03 - Subjective Subjective: pt seen and evaluated, is weak, not able to answer questions ,Ct chest done shows multiple infiltrates Objective - Vital Signs/Intake and Output Vital Signs (last 24 hours): Temp Pulse Resp BP Pulse Ox 97.6 F 74 21 132/58 L 97 01/03/17 08:00 01/03/17 11:15 01/03/17 11:00 01/03/17 10:42 01/03/17 11:00 Intake and Output: 01/03/17 01/03/17 06:59 18:59 Intake Total 100 0 Output Total 470 480 Balance -370 -480 - Medications Medications: Current Medications Acetaminophen (Tylenol 325mg Tab) 650 mg PO Q6 PRN PRN Reason: Fever >100.4 F Albuterol/Ipratropium (Duoneb 3 Mg/0.5 Mg (3 Ml) Ud) 3 ml INH RQ6 [facility] Last Admin: 01/03/17 08:21 Dose: 3 ml Diltiazem HCl (Cardizem Cd) 300 mg PO DAILY [facility] Last Admin: 01/03/17 10:23 Dose: 300 mg Furosemide (Lasix) 60 mg IVP DAILY [facility] Last Admin: 01/03/17 10:22 Dose: 60 mg Heparin Sodium (Porcine) (Heparin) 5,000 units SC BID [facility] Last Admin: 01/03/17 10:22 Dose: 5,000 units Tigecycline 50 mg/ Sodium (Chloride) 100 mls @ 100 mls/hr IVPB Q12H [facility] Last Admin: 01/03/17 00:12 Dose: 100 mls/hr Moxifloxacin HCl (Avelox Iv 400mg/250ml Ns) 400 mg in 250 mls @ 167 mls/hr IVPB Q24H [facility] Last Admin: 01/02/17 17:58 Dose: 167 mls/hr Losartan Potassium (Cozaar) 100 mg PO DAILY [facility] Last Admin: 01/03/17 10:23 Dose: 100 mg Neomycin/Polymyxin/Hydrocortisone (Cortisporin Otic Soln) 2 drop AU QID [facility] Last Admin: 01/03/17 10:23 Dose: 2 drop Nystatin (Nystop Topical Powder) 1 applic TOP BID [facility] Last Admin: 01/03/17 10:23 Dose: 1 g Pantoprazole Sodium (Protonix Ec Tab) 40 mg PO DAILY [facility] Last Admin: 01/03/17 10:23 Dose: 40 mg Phenol/Menthol (Phenaseptic 1.4% Throat [place]) 0 ml MT Q2H PRN PRN Reason: Sore Throat Last Admin: 12/24/16 10:54 Dose: 1 spr - Labs Labs: 01/03/17 06:17 01/03/17 06:17 PT 12.6 SECONDS (9.7-12.2) H 12/21/16 11:39 INR 1.1 12/21/16 11:39 APTT 25 SECONDS (21-34) 12/21/16 11:39 - Constitutional Appears: No Acute Distress, Chronically Ill - Head Exam Head Exam: ATRAUMATIC, NORMAL INSPECTION, NORMOCEPHALIC - Eye Exam Eye Exam: EOMI, Normal appearance, PERRL Pupil Exam: NORMAL ACCOMODATION, PERRL - Respiratory Exam Respiratory Exam: Decreased Breath Sounds, Rales, Rhonchi - Cardiovascular Exam Cardiovascular Exam: REGULAR RHYTHM, +S1, +S2. absent: Murmur - GI/Abdominal Exam GI & Abdominal Exam: Soft, Normal Bowel Sounds. absent: Tenderness Assessment and Plan (1) Abdominal pain Status: Acute (2) Small bowel obstruction Status: Acute (3) Diabetes mellitus Status: Chronic (4) Hypertension Status: Chronic
--- NOTE | 2017-01-03 13:36 | CP.PCM.PN ---
Subjective - Date & Time of Evaluation Date of Evaluation: 01/03/17 Time of Evaluation: 12:04 - Subjective Subjective: Pt seen and examined at bedside. weak, lethargic, drowsy but arousable, overall condition is critical.Pt continues to be on BiPAP and saturating well. Will follow commands but speech is very limited. Objective - Vital Signs/Intake and Output Vital Signs (last 24 hours): Temp Pulse Resp BP Pulse Ox 97.6 F 79 21 132/58 L 97 01/03/17 08:00 01/03/17 13:25 01/03/17 11:00 01/03/17 10:42 01/03/17 11:00 Intake and Output: 01/03/17 01/03/17 06:59 18:59 Intake Total 100 0 Output Total 470 480 Balance -370 -480 - Medications Medications: Current Medications Acetaminophen (Tylenol 325mg Tab) 650 mg PO Q6 PRN PRN Reason: Fever >100.4 F Albuterol/Ipratropium (Duoneb 3 Mg/0.5 Mg (3 Ml) Ud) 3 ml INH RQ6 [facility] Last Admin: 01/03/17 13:25 Dose: 3 ml Diltiazem HCl (Cardizem Cd) 300 mg PO DAILY [facility] Last Admin: 01/03/17 10:23 Dose: 300 mg Furosemide (Lasix) 60 mg IVP DAILY [facility] Last Admin: 01/03/17 10:22 Dose: 60 mg Heparin Sodium (Porcine) (Heparin) 5,000 units SC BID [facility] Last Admin: 01/03/17 10:22 Dose: 5,000 units Tigecycline 50 mg/ Sodium (Chloride) 100 mls @ 100 mls/hr IVPB Q12H [facility] Last Admin: 01/03/17 00:12 Dose: 100 mls/hr Moxifloxacin HCl (Avelox Iv 400mg/250ml Ns) 400 mg in 250 mls @ 167 mls/hr IVPB Q24H [facility] Last Admin: 01/02/17 17:58 Dose: 167 mls/hr Losartan Potassium (Cozaar) 100 mg PO DAILY [facility] Last Admin: 01/03/17 10:23 Dose: 100 mg Neomycin/Polymyxin/Hydrocortisone (Cortisporin Otic Soln) 2 drop AU QID [facility] Last Admin: 01/03/17 10:23 Dose: 2 drop Nystatin (Nystop Topical Powder) 1 applic TOP BID [facility] Last Admin: 01/03/17 10:23 Dose: 1 g Pantoprazole Sodium (Protonix Ec Tab) 40 mg PO DAILY [facility] Last Admin: 01/03/17 10:23 Dose: 40 mg Phenol/Menthol (Phenaseptic 1.4% Throat [place]) 0 ml MT Q2H PRN PRN Reason: Sore Throat Last Admin: 12/24/16 10:54 Dose: 1 spr - Labs Labs: 01/03/17 06:17 01/03/17 06:17 PT 12.6 SECONDS (9.7-12.2) H 12/21/16 11:39 INR 1.1 12/21/16 11:39 APTT 25 SECONDS (21-34) 12/21/16 11:39 - Constitutional Appears: No Acute Distress, Confused, Chronically Ill - Head Exam Head Exam: ATRAUMATIC, NORMAL INSPECTION, NORMOCEPHALIC - Eye Exam Eye Exam: EOMI, Normal appearance, PERRL Pupil Exam: NORMAL ACCOMODATION, PERRL - Respiratory Exam Respiratory Exam: Decreased Breath Sounds, Rales, Rhonchi - Cardiovascular Exam Cardiovascular Exam: REGULAR RHYTHM, +S1, +S2. absent: Murmur Assessment and Plan (1) Abdominal pain Status: Acute (2) Small bowel obstruction Status: Acute (3) Diabetes mellitus Status: Chronic (4) Hypertension Status: Chronic (5) Pneumonia Status: Acute - Assessment and Plan (Free Text) Plan: swallowing eval iv fluid pulmonary consult continue ICU care
[2017-01-03] MEDS: Moxifloxacin IV 400mg/250ml NS 400 MG/250 ML BAG IVPB SCH (17:28)
[2017-01-03] MEDS: Vancomycin 1 gm/NS 200 ml 1 GM/200 ML BAG IVPB SCH (18:42)
--- NOTE | 2017-01-03 20:18 | CP.PCM.PN ---
Subjective - Date & Time of Evaluation Date of Evaluation: 01/03/17 Time of Evaluation: 20:18 - Subjective Subjective: afebrile PRESENTLY ON BIPAP. AWAKE AND RESPONSIVE. DENIES CHEST PAIN WBC increasing 16.6 Pro-calcitonin 0.99 high Secretions scanty Case discussed extensively with ICU team Consider sputum induction for Gram stain and culture IV vancomycin 1 g every 12 hourly added..01/04/16 continue IV Tygacil 50 mg every 12 hourly for multidrug resistant Escherichia coli . Continue IV Avelox 400 mg once daily for atypical organisms. Consider fiberoptic bronchoscopy for diagnostic and therapeutic purposes. Objective - Vital Signs/Intake and Output Vital Signs (last 24 hours): Temp Pulse Resp BP Pulse Ox 98.5 F 70 20 149/59 L 96 01/03/17 20:00 01/03/17 20:00 01/03/17 20:00 01/03/17 19:43 01/03/17 20:00 Intake and Output: 01/03/17 01/04/17 18:59 06:59 Intake Total 357 250 Output Total 1290 90 Balance -933 160 - Medications Medications: Current Medications Acetaminophen (Tylenol 325mg Tab) 650 mg PO Q6 PRN PRN Reason: Fever >100.4 F Albuterol/Ipratropium (Duoneb 3 Mg/0.5 Mg (3 Ml) Ud) 3 ml INH RQ6 [facility] Last Admin: 01/03/17 19:34 Dose: 3 ml Diltiazem HCl (Cardizem Cd) 300 mg PO DAILY [facility] Last Admin: 01/03/17 10:23 Dose: 300 mg Furosemide (Lasix) 60 mg IVP DAILY [facility] Last Admin: 01/03/17 10:22 Dose: 60 mg Heparin Sodium (Porcine) (Heparin) 5,000 units SC BID [facility] Last Admin: 01/03/17 17:29 Dose: 5,000 units Tigecycline 50 mg/ Sodium (Chloride) 100 mls @ 100 mls/hr IVPB Q12H [facility] Last Admin: 01/03/17 13:47 Dose: 100 mls/hr Moxifloxacin HCl (Avelox Iv 400mg/250ml Ns) 400 mg in 250 mls @ 167 mls/hr IVPB Q24H [facility] Last Admin: 01/03/17 17:28 Dose: 167 mls/hr Vancomycin/Sodium Chloride (Vancocin) 1 gm in 200 mls @ 133 mls/hr IVPB Q12H [facility] Stop: 01/08/17 17:01 Last Admin: 01/03/17 18:42 Dose: 133 mls/hr Losartan Potassium (Cozaar) 100 mg PO DAILY [facility] Last Admin: 01/03/17 10:23 Dose: 100 mg Neomycin/Polymyxin/Hydrocortisone (Cortisporin Otic Soln) 2 drop AU QID [facility] Last Admin: 01/03/17 17:29 Dose: 2 drop Nystatin (Nystop Topical Powder) 1 applic TOP BID [facility] Last Admin: 01/03/17 17:34 Dose: 1 g Pantoprazole Sodium (Protonix Ec Tab) 40 mg PO DAILY [facility] Last Admin: 01/03/17 10:23 Dose: 40 mg Phenol/Menthol (Phenaseptic 1.4% Throat [place]) 0 ml MT Q2H PRN PRN Reason: Sore Throat Last Admin: 12/24/16 10:54 Dose: 1 spr - Labs Labs: 01/03/17 06:17 01/03/17 06:17 PT 12.6 SECONDS (9.7-12.2) H 12/21/16 11:39 INR 1.1 12/21/16 11:39 APTT 25 SECONDS (21-34) 12/21/16 11:39 - Constitutional Appears: No Acute Distress - Head Exam Head Exam: NORMAL INSPECTION - Eye Exam Eye Exam: EOMI, PERRL - ENT Exam ENT Exam: Normal Oropharynx - Neck Exam Neck Exam: Normal Inspection - Respiratory Exam Respiratory Exam: Rhonchi (bilaterally.) - Cardiovascular Exam Cardiovascular Exam: REGULAR RHYTHM, +S1, +S2 - GI/Abdominal Exam GI & Abdominal Exam: Soft, Normal Bowel Sounds Additional comments: suture line healing well. - Extremities Exam Extremities Exam: Pedal Edema. absent: Calf Tenderness - Neurological Exam Neurological Exam: Awake - Psychiatric Exam Psychiatric exam: Normal Mood - Skin Skin Exam: Normal Color, Warm Assessment and Plan (1) Fever Status: Acute (2) Pneumonia Assessment & Plan: SPUTUM gRAM STAIN AND CULTURE.(. iNDUCE SPUTUM ) TB W/U IN PROGRESS SPUTUM FOR AFB X3 QUANTIFERON gOLD tb TEST. ESR. CONSIDER DROPLET PRECAUTIONS IF QUANTIferon gOLD tb TEST IS POSITIVE. CASE DISCUSSED WITH ORTHODONTIC LABORATORY TECHNICIAN- SHANE Status: Suspected (3) Small bowel obstruction Status: Acute (4) COPD exacerbation Status: Acute (5) Diabetes mellitus Status: Chronic (6) Hypertension Status: Chronic (7) Anemia Status: Acute
[2017-01-03] MEDS: Dextrose 5%/0.45% NS 1,000 ML IV SCH (21:06)
[2017-01-04] MEDS: Albuterol-Ipratrop 3 mg / 0.5 (3 ml) UD INH SCH ×4 (01:15→19:11)
[2017-01-04] MEDS: Vancomycin 1 gm/NS 200 ml 1 GM/200 ML BAG IVPB SCH ×2 (05:29→17:31)
[2017-01-04 06:15] LABS: BASO # 0.1 K/uL (0.0-0.2); BASO % 0.6 % (0.0-2.0); EOS # 0.1 K/uL (0.0-0.7); EOS % 0.8 % (0.0-4.0); HEMATOCRIT 31.1 % (34.0-47.0); LYMPH % 12.6 % (20.0-40.0); MEAN CORPUSCULAR HEMOGLOBIN 26.2 pg (27.0-31.0); MEAN CORPUSCULAR HGB CONC 31.5 g/dL (33.0-37.0); MEAN PLATELET VOLUME 7.3 fL (7.2-11.7); MONO # 0.8 K/uL (0.0-0.8); MONO % 4.9 % (0.0-10.0); RED CELL DISTRIBUTION WIDTH 16.6 % (11.5-14.5); WHITE BLOOD COUNT 16.2 K/uL (4.8-10.8)
[2017-01-04 06:30] LABS: CHLORIDE 106 mmol/L (98-107)
[2017-01-04 06:31] LABS: POTASSIUM 3.5 mmol/L (3.6-5.2); SODIUM 143 mmol/L (132-148)
[2017-01-04 06:34] LABS: ALB/GLOB RATIO 0.6 (1.0-2.1); ALKALINE PHOSPHATASE 86 U/L (38-126); ALT/SGPT 17 U/L (9-52); AST/SGOT 22 U/L (14-36); BILIRUBIN,TOTAL 0.6 mg/dL (0.2-1.3); BLOOD UREA NITROGEN 31 mg/dL (7-17); CARBON DIOXIDE 29 mmol/L (22-30); GFR AFRICAN-AMERICAN > 60; GLUCOSE,RANDOM 85 mg/dL (65-105); PHOSPHOROUS 3.6 mg/dL (2.5-4.5); TOTAL PROTEIN 5.8 g/dL (6.3-8.3)
[2017-01-04 06:35] LABS: CALCIUM 7.7 mg/dl (8.6-10.4); MAGNESIUM 1.8 mg/dL (1.6-2.3)
[2017-01-04] MEDS: Neomycin/Polymyxin/Hydrocort Otic Soln BOTTLE AU SCH ×4 (09:54→22:40)
[2017-01-04] MEDS: diltiaZEM 300 mg/24 Hours CD Cap PO SCH ×2 (09:55→11:00)
[2017-01-04] MEDS: Pantoprazole 40 mg EC Tab PO SCH ×2 (09:56→12:00)
--- NOTE | 2017-01-04 10:56 | VASCLAB ---
PROCEDURE: Lower Extremity Venous Duplex Exam. HISTORY: r/o DVT right leg PRIORS: None. TECHNIQUE: Bilateral common femoral, femoral, popliteal and posterior tibial, peroneal and great saphenous veins were evaluated. Flow was assessed with color Doppler, compressibility, assessment of phasic flow and augmentation response. Report prepared by SARA Richards, RVT FINDINGS: RIGHT: 1. Common Femoral Vein: 1.1. Compressibility - Partial: Thrombus - Acute : Flow - Reduced : Augmentation -None: Reflux - None. 2. Femoral Vein: 2.1. Compressibility - Partial: Thrombus - Acute : Flow - Reduced : Augmentation -None: Reflux - None. 3. Popliteal Vein: 3.1. Compressibility - Fully compressible: Thrombus - None : Flow - Phasic: Augmentation -Normal: Reflux - None. 4. Posterior Tibial Vein: 4.1. Compressibility - Fully compressible: Thrombus - None: Flow - Phasic: Augmentation -Normal: Reflux - None. 5. Peroneal Vein: 5.1. Compressibility - Fully compressible: Thrombus - None: Flow - Phasic: Augmentation -Normal: Reflux - None. 6. Great Saphenous Vein: 6.1. Compressibility - Fully compressible: Thrombus - None: Flow - Phasic: Augmentation - Normal: Reflux - None. LEFT: 1. Common Femoral Vein: 1.1. Compressibility - Partial: Thrombus - Acute: Flow - Reduced : Augmentation -None: Reflux - None. 2. Femoral Vein: 2.1. Compressibility - Partial: Thrombus - Acute: Flow - Reduced : Augmentation -None: Reflux - None. 3. Popliteal Vein: 3.1. Compressibility - Fully compressible: Thrombus - None : Flow - Phasic: Augmentation -Normal: Reflux - None. 4. Posterior Tibial Vein: 4.1. Compressibility - Fully compressible: Thrombus - None: Flow - Phasic: Augmentation -Normal: Reflux - None. 5. Peroneal Vein: 5.1. Compressibility - Fully compressible: Thrombus - None: Flow - Phasic: Augmentation -Normal: Reflux - None. 6. Great Saphenous Vein: 6.1. Compressibility - Fully compressible: Thrombus - None: Flow - Phasic: Augmentation - Normal: Reflux - None. OTHER FINDINGS: MELODY Goldstein notified about the findings. IMPRESSION: Right: Acute thrombosis of the right femoral vein with severe reduction of the venous return. Acute thrombosis of the right common femoral vein with mild reduction of the venous return. Left: Acute thrombosis of the left common femoral and femoral veins with mild reduction of the venous return.
--- NOTE | 2017-01-04 13:50 | CP.PCM.PN ---
Subjective - Date & Time of Evaluation Date of Evaluation: 01/04/17 Time of Evaluation: 13:50 - Subjective Subjective: AFEBRILE MORE ALERT OFF BIPAP AND TOLERATING IT. WBC 16.2 RENAL FUNCTION OK. LFTS OK NOSE +VE MRSA. 01/02/17 BLOOD CULTURES -VE GROWTH X 24HRS. DUPLEX VENOUS +VE DVT BOTH RT/LT FEMORAL VEINS. +VE IVF. Objective - Vital Signs/Intake and Output Vital Signs (last 24 hours): Temp Pulse Resp BP Pulse Ox 97.6 F 71 22 139/44 L 98 01/04/17 08:00 01/04/17 09:00 01/04/17 09:00 01/04/17 09:52 01/04/17 09:00 Intake and Output: 01/04/17 01/04/17 06:59 18:59 Intake Total 790 120 Output Total 495 155 Balance 295 -35 - Medications Medications: Current Medications Acetaminophen (Tylenol 325mg Tab) 650 mg PO Q6 PRN PRN Reason: Fever >100.4 F Albuterol/Ipratropium (Duoneb 3 Mg/0.5 Mg (3 Ml) Ud) 3 ml INH RQ6 [facility] Last Admin: 01/04/17 08:08 Dose: 3 ml Diltiazem HCl (Cardizem Cd) 300 mg PO DAILY [facility] Last Admin: 01/03/17 10:23 Dose: 300 mg Furosemide (Lasix) 60 mg IVP DAILY [facility] Last Admin: 01/04/17 09:52 Dose: 60 mg Heparin Sodium (Porcine) (Heparin) 5,000 units SC BID [facility] Last Admin: 01/04/17 09:52 Dose: 5,000 units Tigecycline 50 mg/ Sodium (Chloride) 100 mls @ 100 mls/hr IVPB Q12H [facility] Last Admin: 01/04/17 00:22 Dose: 100 mls/hr Moxifloxacin HCl (Avelox Iv 400mg/250ml Ns) 400 mg in 250 mls @ 167 mls/hr IVPB Q24H [facility] Last Admin: 01/03/17 17:28 Dose: 167 mls/hr Vancomycin/Sodium Chloride (Vancocin) 1 gm in 200 mls @ 133 mls/hr IVPB Q12H [facility] Stop: 01/08/17 17:01 Last Admin: 01/04/17 05:29 Dose: 133 mls/hr Dextrose/Sodium Chloride (Dextrose 5%/0.45% Ns 1000 Ml) 1,000 mls @ 40 mls/hr IV .Q24H [facility] Last Admin: 01/03/17 21:06 Dose: 40 mls/hr Losartan Potassium (Cozaar) 100 mg PO DAILY [facility] Last Admin: 01/03/17 10:23 Dose: 100 mg Neomycin/Polymyxin/Hydrocortisone (Cortisporin Otic Soln) 2 drop AU QID [facility] Last Admin: 01/04/17 09:54 Dose: 2 drop Nystatin (Nystop Topical Powder) 1 applic TOP BID [facility] Last Admin: 01/04/17 09:56 Dose: 1 g Pantoprazole Sodium (Protonix Ec Tab) 40 mg PO DAILY [facility] Last Admin: 01/03/17 10:23 Dose: 40 mg Phenol/Menthol (Phenaseptic 1.4% Throat [place]) 0 ml MT Q2H PRN PRN Reason: Sore Throat Last Admin: 12/24/16 10:54 Dose: 1 spr - Labs Labs: 01/04/17 06:09 01/04/17 06:09 PT 12.6 SECONDS (9.7-12.2) H 12/21/16 11:39 INR 1.1 12/21/16 11:39 APTT 25 SECONDS (21-34) 12/21/16 11:39 - Constitutional Appears: No Acute Distress - Head Exam Head Exam: NORMAL INSPECTION - Eye Exam Eye Exam: EOMI, PERRL. absent: Scleral icterus - ENT Exam ENT Exam: Normal Oropharynx - Neck Exam Neck Exam: Normal Inspection - Respiratory Exam Respiratory Exam: Prolonged Expiratory Phase, Rhonchi - Cardiovascular Exam Cardiovascular Exam: Tachycardia, +S1, +S2 - GI/Abdominal Exam GI & Abdominal Exam: Soft ([employer]ISION [employer].), Normal Bowel Sounds - Extremities Exam Extremities Exam: Pedal Edema. absent: Calf Tenderness - Neurological Exam Neurological Exam: Awake - Skin Skin Exam: Normal Color, Warm Assessment and Plan (1) Fever Status: Acute (2) Pneumonia Assessment & Plan: SPUTUM gRAM STAIN AND CULTURE.(. INDUCE SPUTUM ) TB W/U IN PROGRESS SPUTUM FOR AFB X3 QUANTIFERON gOLD tb TEST. ESR. CONSIDER DROPLET PRECAUTIONS IF QUANTIferon gOLD tb TEST IS POSITIVE Status: Suspected (3) Small bowel obstruction Status: Acute (4) COPD exacerbation Status: Acute (5) Diabetes mellitus Status: Chronic (6) Hypertension Status: Chronic (7) Anemia Status: Acute
--- NOTE | 2017-01-04 14:38 | CP.CCUPN ---
<SatinderJason - Last Filed: 01/04/17 14:36> CCU Subjective - Physician Review Subjective (Free Text): 01/04/17 14:36 PGY-1 ICU progress note Pt seen and examined at bedside. Pt seems to be more alert today. Nods head to yes and no questions. Breathing is better today. Taken off BiPAP and tolerating well. Critical Care Time Spent (in minutes): 35 CCU Objective - Vital Signs / Intake & Output Intake and Output (Last 8hrs): Intake & Output 01/03/17 01/04/17 01/04/17 22:59 06:59 14:59 Intake Total 547 500 120 Output Total 530 325 155 Balance 17 175 -35 Weight 208 lb Intake: Intake, IV Amount 547 500 120 Right PICC 547 500 120 Oral 0 Output: Urine 530 325 155 Urethral ([place]) 530 325 155 Other: # Bowel Movements 0 - Physical Exam Head: Positive for: Atraumatic, Normocephalic Pupils: Positive for: PERRL Extroacular Muscles: Positive for: EOMI Conjunctiva: Positive for: Normal Mouth: Positive for: Moist Mucous Membranes Neck: Positive for: Normal Range of Motion Respiratory/Chest: Positive for: Clear to Auscultation, Decreased Breath Sounds. Negative for: Respiratory Distress, Accessory Muscle Use Cardiovascular: Positive for: Regular Rate and Rhythm, Normal S1, S2 Abdomen: Positive for: Tenderness (appropriate around surgical wound), Normal Bowel Sounds, Other (midline incision C/D/I). Negative for: Distention Upper Extremity: Positive for: Normal Inspection. Negative for: Edema Lower Extremity: Positive for: Normal Inspection, Edema. Negative for: CALF TENDERNESS Neurological: Positive for: Motor Func Grossly Intact. Negative for: CN II-XII Intact Skin: Positive for: Warm, Dry Psychiatric: Positive for: Alert - Medications Active Medications: Active Medications Generic Name Dose Route Start Last Admin Trade Name Freq PRN Reason Stop Dose Admin Acetaminophen 650 mg 12/30/16 09:18 Tylenol 325mg Tab PO Q6 PRN Fever >100.4 F Albuterol/Ipratropium 3 ml 12/30/16 09:19 01/04/17 13:55 Duoneb 3 Mg/0.5 Mg (3 Ml) Ud INH 3 ml RQ6 [facility] Administration Diltiazem HCl 300 mg 12/16/16 10:00 01/03/17 10:23 Cardizem Cd PO 300 mg DAILY [facility] Administration Furosemide 60 mg 01/02/17 10:00 01/04/17 09:52 Lasix IVP 60 mg DAILY [facility] Administration Heparin Sodium (Porcine) 5,000 units 12/30/16 10:00 01/04/17 09:52 Heparin SC 5,000 units BID [facility] Administration Tigecycline 50 mg/ Sodium 100 mls @ 100 mls/hr 12/27/16 13:00 01/04/17 00:22 Chloride IVPB 100 mls/hr Q12H [facility] Administration Moxifloxacin HCl 400 mg in 250 mls @ 167 mls/hr 01/02/17 17:00 01/03/17 17:28 Avelox Iv 400mg/250ml Ns IVPB 167 mls/hr Q24H [facility] Administration Vancomycin/Sodium Chloride 1 gm in 200 mls @ 133 mls/hr 01/03/17 17:00 05:29 Vancocin IVPB 01/08/17 17:01 133 mls/hr Q12H [facility] Administration Dextrose/Sodium Chloride 1,000 mls @ 40 mls/hr 01/03/17 20:45 01/03/17 21:06 Dextrose 5%/0.45% Ns 1000 Ml IV 40 mls/hr .Q24H [facility] Administration Losartan Potassium 100 mg 12/16/16 10:00 01/03/17 10:23 Cozaar PO 100 mg DAILY [facility] Administration Neomycin/Polymyxin/Hydrocortisone 2 drop 12/16/16 14:00 01/04/17 09:54 Cortisporin Otic Soln AU 2 drop QID [facility] Administration Nystatin 1 applic 01/02/17 10:00 01/04/17 09:56 Nystop Topical Powder TOP 1 g BID [facility] Administration Pantoprazole Sodium 40 mg 01/05/17 10:00 Protonix Inj IVP DAILY [facility] Phenol/Menthol 0 ml 12/18/16 08:13 12/24/16 10:54 Phenaseptic 1.4% Throat [place] MT 1 spr Q2H PRN Administration Sore Throat - Patient Studies Lab Studies: Microbiology Studies 01/02/17 18:15 Blood Culture - Preliminary Blood-Venous NO GROWTH AFTER 24 HOURS 01/02/17 18:00 Blood Culture - Preliminary Blood-Venous NO GROWTH AFTER 24 HOURS 01/01/17 20:45 MRSA Culture (Admit) - Final Nose MRSA DETECTED Lab Studies 01/04/17 01/04/17 Range/Units 06:09 06:09 WBC 16.2 H (4.8-10.8) K/uL RBC 3.75 L (3.80-5.20) Mil/uL Hgb 9.8 L (11.0-16.0) g/dL Hct 31.1 L (34.0-47.0) % MCV 83.0 (81.0-99.0) fL MCH 26.2 L (27.0-31.0) pg MCHC 31.5 L (33.0-37.0) g/dL RDW 16.6 H (11.5-14.5) % Plt Count 451 H (130-400) K/uL MPV 7.3 (7.2-11.7) fL Neut % (Auto) 81.1 H (50.0-75.0) % Lymph % (Auto) 12.6 L (20.0-40.0) % [place] % (Auto) 4.9 (0.0-10.0) % Eos % (Auto) 0.8 (0.0-4.0) % Baso % (Auto) 0.6 (0.0-2.0) % Neut # 13.1 H (1.8-7.0) K/uL Lymph # 2.0 (1.0-4.3) K/uL [place] # 0.8 (0.0-0.8) K/uL Eos # 0.1 (0.0-0.7) K/uL Baso # 0.1 (0.0-0.2) K/uL Sodium 143 (132-148) mmol/L Potassium 3.5 L (3.6-5.2) mmol/L Chloride 106 (98-107) mmol/L Carbon Dioxide 29 (22-30) mmol/L Anion Gap 12 (10-20) BUN 31 H (7-17) mg/dL Creatinine 0.7 (0.7-1.2) MG/DL Est GFR ( Amer) > 60 Est GFR (Non-Af Amer) > 60 Random Glucose 85 (65-105) mg/dL Calcium 7.7 L (8.6-10.4) mg/dl Phosphorus 3.6 (2.5-4.5) mg/dL Magnesium 1.8 (1.6-2.3) mg/dL Total Bilirubin 0.6 (0.2-1.3) mg/dL AST 22 (14-36) U/L ALT 17 (9-52) U/L Alkaline Phosphatase 86 (38-126) U/L Total Protein 5.8 L (6.3-8.3) g/dL Albumin 2.1 L (3.5-5.0) g/dL Globulin 3.7 (2.2-3.9) gm/dL Albumin/Globulin Ratio 0.6 L (1.0-2.1) Laboratory Results - last 24 hr 01/04/17 01/04/17 06:09 06:09 WBC 16.2 H RBC 3.75 L Hgb 9.8 L Hct 31.1 L MCV 83.0 MCH 26.2 L MCHC 31.5 L RDW 16.6 H Plt Count 451 H MPV 7.3 Neut % (Auto) 81.1 H Lymph % (Auto) 12.6 L [place] % (Auto) 4.9 Eos % (Auto) 0.8 Baso % (Auto) 0.6 Neut # 13.1 H Lymph # 2.0 [place] # 0.8 Eos # 0.1 Baso # 0.1 Sodium 143 Potassium 3.5 L Chloride 106 Carbon Dioxide 29 Anion Gap 12 BUN 31 H Creatinine 0.7 Est GFR ( Amer) > 60 Est GFR (Non-Af Amer) > 60 Random Glucose 85 Calcium 7.7 L Phosphorus 3.6 Magnesium 1.8 Total Bilirubin 0.6 AST 22 ALT 17 Alkaline Phosphatase 86 Total Protein 5.8 L Albumin 2.1 L Globulin 3.7 Albumin/Globulin Ratio 0.6 L Review of Systems - Review of Systems All systems: reviewed and no additional remarkable complaints except (where noted in HPI) Assessment/Plan - Assessment and Plan (Free Text) Assessment: This is an 86 yo F with respiratory distress, secondary to likely pneumonia, now on off of BiPAP, tolerating well. Pt is more alert today and able to get OOB to chair. Plan: Neuro: Alert and follows directions, baseline demented Cardiovascular: Hemodynamically stable. Continue home HTN meds Pulmonary: On NC at 3L, tolerating well. Continue to monitor. Continue Tigecycline, Avelox and Vancomycin as per ID Continue duonebs Follow cultures Monitor Gastrointestinal: Failed swallow eval NG tube placed No acute issues Hematology: Lower extremity doppler - acute thrombosis of the right femoral vein with severe reduction of the venous return. Acute thrombosis of the right common femoral vein with mild reduction of venous return. acute thrombosis of the left common femoral and femoral veins with mild reduction of the venous return. Endocrine: No acute issues Renal: No acute issues, monitor labs Good urine output Infectious Disease: Afebrile, stable leukocytosis Continue Tigecycline, Avelox and vanco ID following - pancultures, sputum for AFB, Quant gold TB test GI Prophylaxis: Protonix DVT Prophylaxis: Heparin <ViryfIsmael M - Last Filed: 01/04/17 17:47> CCU Objective - Vital Signs / Intake & Output Vital Signs (Last 4 hours): Vital Signs Temp Pulse Resp BP Pulse Ox 01/04/17 17:00 67 22 98 01/04/17 16:43 73 21 151/46 H 99 01/04/17 16:00 98.3 F 80 14 98 01/04/17 15:42 72 21 147/50 L 97 01/04/17 15:28 70 22 153/51 H 01/04/17 15:09 81 22 01/04/17 14:42 81 20 139/68 98 01/04/17 14:00 77 20 97 Intake and Output (Last 8hrs): Intake & Output 01/04/17 01/04/17 01/04/17 06:59 14:59 22:59 Intake Total 500 380 350 Output Total 325 630 225 Balance 175 -250 125 Weight 208 lb Intake: Intake, IV Amount 500 380 280 Right PICC 500 380 280 Oral 50 Tube Feeding 20 Output: Urine 325 630 225 Urethral ([place]) 325 630 225 - Medications Active Medications: Active Medications Generic Name Dose Route Start Last Admin Trade Name Freq PRN Reason Stop Dose Admin Acetaminophen 650 mg 12/30/16 09:18 Tylenol 325mg Tab PO Q6 PRN Fever >100.4 F Albuterol/Ipratropium 3 ml 12/30/16 09:19 01/04/17 13:55 Duoneb 3 Mg/0.5 Mg (3 Ml) Ud INH 3 ml RQ6 [facility] Administration Diltiazem HCl 300 mg 12/16/16 10:00 01/04/17 11:00 Cardizem Cd PO Not Given DAILY [facility] Furosemide 60 mg 01/02/17 10:00 01/04/17 09:52 Lasix IVP 60 mg DAILY [facility] Administration Heparin Sodium (Porcine) 5,000 units 12/30/16 10:00 01/04/17 17:33 Heparin SC 5,000 units BID [facility] Administration Tigecycline 50 mg/ Sodium 100 mls @ 100 mls/hr 12/27/16 13:00 01/04/17 15:19 Chloride IVPB 100 mls/hr Q12H [facility] Administration Moxifloxacin HCl 400 mg in 250 mls @ 167 mls/hr 01/02/17 17:00 01/04/17 17:27 Avelox Iv 400mg/250ml Ns IVPB 167 mls/hr Q24H [facility] Administration Vancomycin/Sodium Chloride 1 gm in 200 mls @ 133 mls/hr 01/03/17 17:00 17:31 Vancocin IVPB 01/08/17 17:01 133 mls/hr Q12H [facility] Administration Dextrose/Sodium Chloride 1,000 mls @ 40 mls/hr 01/03/17 20:45 01/03/17 21:06 Dextrose 5%/0.45% Ns 1000 Ml IV 40 mls/hr .Q24H [facility] Administration Losartan Potassium 100 mg 12/16/16 10:00 01/04/17 11:00 Cozaar PO Not Given DAILY [facility] Neomycin/Polymyxin/Hydrocortisone 2 drop 12/16/16 14:00 01/04/17 17:30 Cortisporin Otic Soln AU 2 drop QID [facility] Administration Nystatin 1 applic 01/02/17 10:00 01/04/17 17:36 Nystop Topical Powder TOP 1 g BID [facility] Administration Pantoprazole Sodium 40 mg 01/05/17 10:00 Protonix Inj IVP DAILY [facility] Phenol/Menthol 0 ml 12/18/16 08:13 12/24/16 10:54 Phenaseptic 1.4% Throat [place] MT 1 spr Q2H PRN Administration Sore Throat - Patient Studies Lab Studies: Microbiology Studies 01/02/17 18:15 Blood Culture - Preliminary Blood-Venous NO GROWTH AFTER 24 HOURS 01/02/17 18:00 Blood Culture - Preliminary Blood-Venous NO GROWTH AFTER 24 HOURS Lab Studies 01/04/17 01/04/17 Range/Units 06:09 06:09 WBC 16.2 H (4.8-10.8) K/uL RBC 3.75 L (3.80-5.20) Mil/uL Hgb 9.8 L (11.0-16.0) g/dL Hct 31.1 L (34.0-47.0) % MCV 83.0 (81.0-99.0) fL MCH 26.2 L (27.0-31.0) pg MCHC 31.5 L (33.0-37.0) g/dL RDW 16.6 H (11.5-14.5) % Plt Count 451 H (130-400) K/uL MPV 7.3 (7.2-11.7) fL Neut % (Auto) 81.1 H (50.0-75.0) % Lymph % (Auto) 12.6 L (20.0-40.0) % [place] % (Auto) 4.9 (0.0-10.0) % Eos % (Auto) 0.8 (0.0-4.0) % Baso % (Auto) 0.6 (0.0-2.0) % Neut # 13.1 H (1.8-7.0) K/uL Lymph # 2.0 (1.0-4.3) K/uL [place] # 0.8 (0.0-0.8) K/uL Eos # 0.1 (0.0-0.7) K/uL Baso # 0.1 (0.0-0.2) K/uL Sodium 143 (132-148) mmol/L Potassium 3.5 L (3.6-5.2) mmol/L Chloride 106 (98-107) mmol/L Carbon Dioxide 29 (22-30) mmol/L Anion Gap 12 (10-20) BUN 31 H (7-17) mg/dL Creatinine 0.7 (0.7-1.2) MG/DL Est GFR ( Amer) > 60 Est GFR (Non-Af Amer) > 60 Random Glucose 85 (65-105) mg/dL Calcium 7.7 L (8.6-10.4) mg/dl Phosphorus 3.6 (2.5-4.5) mg/dL Magnesium 1.8 (1.6-2.3) mg/dL Total Bilirubin 0.6 (0.2-1.3) mg/dL AST 22 (14-36) U/L ALT 17 (9-52) U/L Alkaline Phosphatase 86 (38-126) U/L Total Protein 5.8 L (6.3-8.3) g/dL Albumin 2.1 L (3.5-5.0) g/dL Globulin 3.7 (2.2-3.9) gm/dL Albumin/Globulin Ratio 0.6 L (1.0-2.1) Laboratory Results - last 24 hr 01/04/17 01/04/17 06:09 06:09 WBC 16.2 H RBC 3.75 L Hgb 9.8 L Hct 31.1 L MCV 83.0 MCH 26.2 L MCHC 31.5 L RDW 16.6 H Plt Count 451 H MPV 7.3 Neut % (Auto) 81.1 H Lymph % (Auto) 12.6 L [place] % (Auto) 4.9 Eos % (Auto) 0.8 Baso % (Auto) 0.6 Neut # 13.1 H Lymph # 2.0 [place] # 0.8 Eos # 0.1 Baso # 0.1 Sodium 143 Potassium 3.5 L Chloride 106 Carbon Dioxide 29 Anion Gap 12 BUN 31 H Creatinine 0.7 Est GFR ( Amer) > 60 Est GFR (Non-Af Amer) > 60 Random Glucose 85 Calcium 7.7 L Phosphorus 3.6 Magnesium 1.8 Total Bilirubin 0.6 AST 22 ALT 17 Alkaline Phosphatase 86 Total Protein 5.8 L Albumin 2.1 L Globulin 3.7 Albumin/Globulin Ratio 0.6 L Attending/Attestation - Attestation I have personally seen and examined this patient.: Yes I have fully participated in the care of the patient.: Yes I have reviewed all pertinent clinical information: Yes Notes (Text): 01/04/17 17:47 Today: December The Patient was seen and examined at the bedside, Medical records reviewed, all clinical/lab/hemodynamic/radiographic data were reviewed and management issues were discussed and formulated, Events reviewed Pain issues, skin care, head of the bed elevation, glycemic control were addressed. Agree with above treatment plans as transcribed in Dr. Satinder rose
--- NOTE | 2017-01-04 15:54 | RAD ---
PROCEDURE: CHEST RADIOGRAPH, 1 VIEW HISTORY: RESP FAILURE COMPARISON: 01/02/2017 FINDINGS: LUNGS: Ill-defined opacity at right lung base. Followup advised to exclude developing pneumonia. PLEURA: No pneumothorax or pleural fluid seen. CARDIOVASCULAR: Right PICC catheter unchanged. New nasogastric tube extends to approximately the level of the gastroesophageal junction. This should be repositioned or advanced. OSSEOUS STRUCTURES: No significant abnormalities. VISUALIZED UPPER ABDOMEN: Normal. OTHER FINDINGS: None. IMPRESSION: New nasogastric tube terminates at approximately level of the gastroesophageal junction. This should be repositioned or replaced. This finding was discussed by telephone with the patient's nurse, Amada, at 3:45 p.m. on 01/04/2017.
--- NOTE | 2017-01-04 16:42 | RAD ---
HISTORY: NG tube adjustment COMPARISON: 01/04/2017 at 10:04 p.m. FINDINGS: LUNGS: Probable subsegmental atelectasis at left lung base. Examination limited due to steep oblique positioning. Opacity at right base seen on earlier examination is not evident currently. PLEURA: No significant pleural effusion identified, no pneumothorax apparent. CARDIOVASCULAR: Nasogastric tube now extends to left upper quadrant of abdomen. Right PICC catheter unchanged. OSSEOUS STRUCTURES: No significant abnormalities. VISUALIZED UPPER ABDOMEN: Normal. OTHER FINDINGS: None. IMPRESSION: Nasogastric tube extends to left upper quadrant of abdomen.
--- NOTE | 2017-01-04 17:12 | CP.PCM.PN ---
Subjective - Date & Time of Evaluation Date of Evaluation: 01/04/17 Time of Evaluation: 10:20 - Subjective Subjective: patient seen and examined in the intensive care unit. Off BiPAP in no respiratory distress On nasal cannula saturating well Afebrile Objective - Vital Signs/Intake and Output Vital Signs (last 24 hours): Temp Pulse Resp BP Pulse Ox 98.3 F 81 22 139/68 98 01/04/17 16:00 01/04/17 15:09 01/04/17 15:09 01/04/17 14:42 01/04/17 14:42 Intake and Output: 01/04/17 01/04/17 06:59 18:59 Intake Total 790 460 Output Total 495 780 Balance 295 -320 - Medications Medications: Current Medications Acetaminophen (Tylenol 325mg Tab) 650 mg PO Q6 PRN PRN Reason: Fever >100.4 F Albuterol/Ipratropium (Duoneb 3 Mg/0.5 Mg (3 Ml) Ud) 3 ml INH RQ6 [facility] Last Admin: 01/04/17 13:55 Dose: 3 ml Diltiazem HCl (Cardizem Cd) 300 mg PO DAILY [facility] Last Admin: 01/04/17 11:00 Dose: Not Given Furosemide (Lasix) 60 mg IVP DAILY [facility] Last Admin: 01/04/17 09:52 Dose: 60 mg Heparin Sodium (Porcine) (Heparin) 5,000 units SC BID [facility] Last Admin: 01/04/17 09:52 Dose: 5,000 units Tigecycline 50 mg/ Sodium (Chloride) 100 mls @ 100 mls/hr IVPB Q12H [facility] Last Admin: 01/04/17 15:19 Dose: 100 mls/hr Moxifloxacin HCl (Avelox Iv 400mg/250ml Ns) 400 mg in 250 mls @ 167 mls/hr IVPB Q24H [facility] Last Admin: 01/03/17 17:28 Dose: 167 mls/hr Vancomycin/Sodium Chloride (Vancocin) 1 gm in 200 mls @ 133 mls/hr IVPB Q12H [facility] Stop: 01/08/17 17:01 Last Admin: 01/04/17 05:29 Dose: 133 mls/hr Dextrose/Sodium Chloride (Dextrose 5%/0.45% Ns 1000 Ml) 1,000 mls @ 40 mls/hr IV .Q24H [facility] Last Admin: 01/03/17 21:06 Dose: 40 mls/hr Losartan Potassium (Cozaar) 100 mg PO DAILY [facility] Last Admin: 01/04/17 11:00 Dose: Not Given Neomycin/Polymyxin/Hydrocortisone (Cortisporin Otic Soln) 2 drop AU QID [facility] Last Admin: 01/04/17 15:21 Dose: 2 drop Nystatin (Nystop Topical Powder) 1 applic TOP BID [facility] Last Admin: 01/04/17 09:56 Dose: 1 g Pantoprazole Sodium (Protonix Inj) 40 mg IVP DAILY [facility] Phenol/Menthol (Phenaseptic 1.4% Throat [place]) 0 ml MT Q2H PRN PRN Reason: Sore Throat Last Admin: 12/24/16 10:54 Dose: 1 spr - Labs Labs: 01/04/17 06:09 01/04/17 06:09 PT 12.6 SECONDS (9.7-12.2) H 12/21/16 11:39 INR 1.1 12/21/16 11:39 APTT 25 SECONDS (21-34) 12/21/16 11:39 - Head Exam Head Exam: ATRAUMATIC, NORMOCEPHALIC - Eye Exam Eye Exam: Normal appearance - ENT Exam ENT Exam: Mucous Membranes Moist - Neck Exam Neck Exam: Normal Inspection - Respiratory Exam Respiratory Exam: Decreased Breath Sounds - Cardiovascular Exam Cardiovascular Exam: REGULAR RHYTHM - GI/Abdominal Exam GI & Abdominal Exam: Soft, Normal Bowel Sounds Assessment and Plan (1) Pneumonia Assessment & Plan: continue antibiotics as per infectious disease DVT both femoral veins Status post IVC filter Status: Acute (2) COPD exacerbation Status: Acute
[2017-01-04] MEDS: Moxifloxacin IV 400mg/250ml NS 400 MG/250 ML BAG IVPB SCH (17:27)
[2017-01-04] MEDS: Mupirocin 2% Ointment (NASAL) NAS SCH (22:40)
[2017-01-04] MEDS: Dextrose 5%/0.45% NS 1,000 ML IV SCH (22:42)
--- NOTE | 2017-01-04 22:52 | CP.PCM.PN ---
Subjective - Date & Time of Evaluation Date of Evaluation: 01/04/17 Time of Evaluation: 12:08 - Subjective Subjective: Pt seen and evalauted, On BIPAP, on nasal canula, on Ng tube for feeds, for swallowing eval due to dysphagia Objective - Vital Signs/Intake and Output Vital Signs (last 24 hours): Temp Pulse Resp BP Pulse Ox 98.3 F 75 19 151/52 H 99 01/04/17 16:00 01/04/17 20:00 01/04/17 20:00 01/04/17 19:42 01/04/17 20:00 Intake and Output: 01/04/17 01/05/17 18:59 06:59 Intake Total 950 60 Output Total 905 65 Balance 45 -5 - Medications Medications: Current Medications Acetaminophen (Tylenol 325mg Tab) 650 mg PO Q6 PRN PRN Reason: Fever >100.4 F Albuterol/Ipratropium (Duoneb 3 Mg/0.5 Mg (3 Ml) Ud) 3 ml INH RQ6 [facility] Last Admin: 01/04/17 19:11 Dose: 3 ml Carbidopa/Levodopa (Sinemet 10/100) 1 tab PO TID [facility] Diltiazem HCl (Cardizem) 90 mg PO TID [facility] Furosemide (Lasix) 60 mg IVP DAILY [facility] Last Admin: 01/04/17 09:52 Dose: 60 mg Heparin Sodium (Porcine) (Heparin) 5,000 units SC BID [facility] Last Admin: 01/04/17 17:33 Dose: 5,000 units Tigecycline 50 mg/ Sodium (Chloride) 100 mls @ 100 mls/hr IVPB Q12H [facility] Last Admin: 01/04/17 15:19 Dose: 100 mls/hr Moxifloxacin HCl (Avelox Iv 400mg/250ml Ns) 400 mg in 250 mls @ 167 mls/hr IVPB Q24H [facility] Last Admin: 01/04/17 17:27 Dose: 167 mls/hr Vancomycin/Sodium Chloride (Vancocin) 1 gm in 200 mls @ 133 mls/hr IVPB Q12H [facility] Stop: 01/08/17 17:01 Last Admin: 01/04/17 17:31 Dose: 133 mls/hr Dextrose/Sodium Chloride (Dextrose 5%/0.45% Ns 1000 Ml) 1,000 mls @ 40 mls/hr IV .Q24H [facility] Last Admin: 01/04/17 22:42 Dose: 40 mls/hr Losartan Potassium (Cozaar) 100 mg PO DAILY [facility] Last Admin: 01/04/17 11:00 Dose: Not Given Mupirocin (Bactroban 2% Nasal) 0.5 gm VIRAJ BID [facility] Last Admin: 01/04/17 22:40 Dose: 0.5 gm Neomycin/Polymyxin/Hydrocortisone (Cortisporin Otic Soln) 2 drop AU QID [facility] Last Admin: 01/04/17 22:40 Dose: 2 drop Nystatin (Nystop Topical Powder) 1 applic TOP BID [facility] Last Admin: 01/04/17 17:36 Dose: 1 g Pantoprazole Sodium (Protonix Inj) 40 mg IVP DAILY [facility] Phenol/Menthol (Phenaseptic 1.4% Throat [place]) 0 ml MT Q2H PRN PRN Reason: Sore Throat Last Admin: 12/24/16 10:54 Dose: 1 spr - Labs Labs: 01/04/17 06:09 01/04/17 06:09 PT 12.6 SECONDS (9.7-12.2) H 12/21/16 11:39 INR 1.1 12/21/16 11:39 APTT 25 SECONDS (21-34) 12/21/16 11:39 - Constitutional Appears: No Acute Distress - Head Exam Head Exam: ATRAUMATIC, NORMAL INSPECTION, NORMOCEPHALIC - Eye Exam Eye Exam: EOMI, Normal appearance, PERRL Pupil Exam: NORMAL ACCOMODATION, PERRL - Respiratory Exam Respiratory Exam: Clear to Ausculation Bilateral, NORMAL BREATHING PATTERN - Cardiovascular Exam Cardiovascular Exam: REGULAR RHYTHM, +S1, +S2. absent: Murmur - GI/Abdominal Exam GI & Abdominal Exam: Soft, Normal Bowel Sounds. absent: Tenderness Assessment and Plan (1) Abdominal pain Status: Acute (2) Small bowel obstruction Status: Acute (3) Diabetes mellitus Status: Chronic (4) Hypertension Status: Chronic (5) Pneumonia Status: Acute
[2017-01-05] MEDS: Albuterol-Ipratrop 3 mg / 0.5 (3 ml) UD INH SCH ×4 (01:12→19:34)
[2017-01-05 06:33] LABS: BASO % 0.2 % (0.0-2.0); EOS # 0.1 K/uL (0.0-0.7); EOS % 0.6 % (0.0-4.0); LYMPH # 1.8 K/uL (1.0-4.3); LYMPH % 11.9 % (20.0-40.0); MEAN CELL VOLUME 82.2 fL (81.0-99.0); MEAN CORPUSCULAR HEMOGLOBIN 26.6 pg (27.0-31.0); MEAN CORPUSCULAR HGB CONC 32.4 g/dL (33.0-37.0); MEAN PLATELET VOLUME 6.9 fL (7.2-11.7); MONO # 0.8 K/uL (0.0-0.8); MONO % 5.6 % (0.0-10.0); RED CELL DISTRIBUTION WIDTH 16.4 % (11.5-14.5); WHITE BLOOD COUNT 15.1 K/uL (4.8-10.8)
[2017-01-05] MEDS: Vancomycin 1 gm/NS 200 ml 1 GM/200 ML BAG IVPB SCH ×2 (06:33→17:53)
[2017-01-05 06:46] LABS: CHLORIDE 108 mmol/L (98-107); SODIUM 143 mmol/L (132-148)
[2017-01-05 06:47] LABS: POTASSIUM 3.5 mmol/L (3.6-5.2)
[2017-01-05 06:49] LABS: ALB/GLOB RATIO 0.6 (1.0-2.1); ALKALINE PHOSPHATASE 82 U/L (38-126); AST/SGOT 25 U/L (14-36); BILIRUBIN,TOTAL 0.5 mg/dL (0.2-1.3); BLOOD UREA NITROGEN 32 mg/dL (7-17); CARBON DIOXIDE 30 mmol/L (22-30); GFR AFRICAN-AMERICAN > 60; GLUCOSE,RANDOM 131 mg/dL (65-105); PHOSPHOROUS 3.1 mg/dL (2.5-4.5); TOTAL PROTEIN 5.3 g/dL (6.3-8.3)
[2017-01-05 06:50] LABS: ALT/SGPT 11 U/L (9-52); CALCIUM 7.5 mg/dl (8.6-10.4); MAGNESIUM 1.8 mg/dL (1.6-2.3)
[2017-01-05] MEDS ORDERED: Potassium Chloride 20 mEq/15 ml LIQ UD PO ONE (10:11)
[2017-01-05] MEDS: Mupirocin 2% Ointment (NASAL) NAS SCH ×2 (11:12→17:53)
[2017-01-05] MEDS: Neomycin/Polymyxin/Hydrocort Otic Soln BOTTLE AU SCH ×4 (11:13→22:09)
--- NOTE | 2017-01-05 11:16 | CP.PCM.CON ---
History of Present Illness - History of Present Illness History of Present Illness: Palliative consult Requested by Anuel CAMERON Reason : Goals of care discussion Patient is a 86 yo admitted on 12/15/2014 from [facility], with abdominal pain. The CT abd showed SBO and on 12/21/2016 patient had SBR, lysis of adhisions and exploratory lap by Doctor Cano. During the hospital stay patient developed pneumonia and needed BiPap for respiratory support. patient transferred to ICU for closer monitoring. Patient did not tolerate PO intake well due to aspirating the food and NGT was placed in for artificial feeding. palliative care was called to assist with goals of care discussion. PMH: HTN, anemia, CHF, COPD, PE, parkinson's Soc. Hx: , lives at home with the daughter and grand daughter Fam. Hx: no significant Review of Systems - Review of Systems Systems not reviewed;Unavailable: Acuity of Condition Past Patient History - Infectious Disease Hx of Infectious Diseases: None - Past Medical History & Family History Past Medical History?: Yes - Past Social History Smoking Status: Never Smoked - CARDIAC Hx Congestive Heart Failure: Yes Hx Hypercholesterolemia: Yes Hx Hypertension: Yes - PULMONARY Hx Chronic Obstructive Pulmonary Disease (COPD): Yes - NEUROLOGICAL Hx Parkinson's Disease: Yes - HEENT Hx Cataracts: Yes (hx, cataract surgery 4 yrs ago) Other/Comment: wear eyeglasses - RENAL Hx Chronic Kidney Disease: No - ENDOCRINE/METABOLIC Hx Diabetes Mellitus Type 2: Yes - HEMATOLOGICAL/ONCOLOGICAL Hx Anemia: Yes - INTEGUMENTARY Hx Dermatological Problems: No - MUSCULOSKELETAL/RHEUMATOLOGICAL Hx Arthritis: Yes - GASTROINTESTINAL Hx Gastrointestinal Disorders: No - GENITOURINARY/GYNECOLOGICAL Hx Genitourinary Disorders: No Hx Urinary Tract Infection: Yes - PSYCHIATRIC Hx Substance Use: No - SURGICAL HISTORY Hx Cataract Extraction: Yes Hx Joint Replacement: Yes (Bilateral knee replacement) Other/Comment: Back surgery (Bone fusion), Gallbladder surgery, skin graft surgery left leg, green filter placement - ANESTHESIA Hx Anesthesia: Yes Hx Anesthesia Reactions: No Hx Malignant Hyperthermia: No Meds Allergies/Adverse Reactions: Allergies Allergy/AdvReac Type Severity Reaction Status Date / Time Penicillins Allergy Verified 11/01/15 12:32 - Medications Medications: Current Medications Acetaminophen (Tylenol 325mg Tab) 650 mg PO Q6 PRN PRN Reason: Fever >100.4 F Albuterol/Ipratropium (Duoneb 3 Mg/0.5 Mg (3 Ml) Ud) 3 ml INH RQ6 [facility] Last Admin: 01/05/17 07:51 Dose: 3 ml Carbidopa/Levodopa (Sinemet 10/100) 1 tab PO TID [facility] Last Admin: 01/05/17 00:19 Dose: 1 tab Diltiazem HCl (Cardizem) 90 mg PO TID [facility] Last Admin: 01/05/17 00:19 Dose: 90 mg Heparin Sodium (Porcine) (Heparin) 5,000 units SC BID [facility] Last Admin: 01/04/17 17:33 Dose: 5,000 units Tigecycline 50 mg/ Sodium (Chloride) 100 mls @ 100 mls/hr IVPB Q12H [facility] Last Admin: 01/05/17 00:19 Dose: 100 mls/hr Moxifloxacin HCl (Avelox Iv 400mg/250ml Ns) 400 mg in 250 mls @ 167 mls/hr IVPB Q24H [facility] Last Admin: 01/04/17 17:27 Dose: 167 mls/hr Vancomycin/Sodium Chloride (Vancocin) 1 gm in 200 mls @ 133 mls/hr IVPB Q12H [facility] Stop: 01/08/17 17:01 Last Admin: 01/05/17 06:33 Dose: 133 mls/hr Losartan Potassium (Cozaar) 100 mg PO DAILY [facility] Last Admin: 01/04/17 11:00 Dose: Not Given Mupirocin (Bactroban 2% Nasal) 0.5 gm VIRAJ BID [facility] Last Admin: 01/04/17 22:40 Dose: 0.5 gm Neomycin/Polymyxin/Hydrocortisone (Cortisporin Otic Soln) 2 drop AU QID [facility] Last Admin: 01/04/17 22:40 Dose: 2 drop Nystatin (Nystop Topical Powder) 1 applic TOP BID [facility] Last Admin: 01/04/17 17:36 Dose: 1 g Pantoprazole Sodium (Protonix Inj) 40 mg IVP DAILY [facility] Phenol/Menthol (Phenaseptic 1.4% Throat [place]) 0 ml MT Q2H PRN PRN Reason: Sore Throat Last Admin: 12/24/16 10:54 Dose: 1 spr Physical Exam - Constitutional Appears: Chronically Ill - Head Exam Head Exam: ATRAUMATIC, NORMAL INSPECTION, NORMOCEPHALIC - ENT Exam ENT Exam: Mucous Membranes Moist, Normal Exam Additional comments: NGT for feeding - Neck Exam Neck exam: Positive for: Normal Inspection - Respiratory Exam Respiratory Exam: Decreased Breath Sounds, NORMAL BREATHING PATTERN - Cardiovascular Exam Cardiovascular Exam: REGULAR RHYTHM, +S1, +S2 - GI/Abdominal Exam GI & Abdominal Exam: Diminished Bowel Sounds, Soft - Rectal Exam Rectal Exam: Deferred - Exam Additional comments: Lewis cath - Extremities Exam Extremities exam: Positive for: normal inspection - Back Exam Back exam: CVA tenderness (L) - Neurological Exam Neurological exam: Alert - Psychiatric Exam Psychiatric exam: Flat Affect - Skin Skin Exam: Normal Color Results - Vital Signs Recent Vital Signs: Last Vital Signs Temp 98.4 F 01/05/17 04:00 Pulse 75 01/05/17 07:42 Resp 22 01/05/17 07:42 BP 138/51 L 01/05/17 07:42 Pulse Ox 98 01/05/17 07:42 - Labs Result Diagrams: 01/05/17 06:22 01/05/17 06:22 Labs: Laboratory Results - last 24 hr 01/03/17 01/05/17 01/05/17 06:17 06:22 06:22 WBC 15.1 H RBC 3.41 L Hgb 9.1 L Hct 28.0 L MCV 82.2 MCH 26.6 L MCHC 32.4 L RDW 16.4 H Plt Count 378 MPV 6.9 L Neut % (Auto) 81.7 H Lymph % (Auto) 11.9 L Crawford % (Auto) 5.6 Eos % (Auto) 0.6 Baso % (Auto) 0.2 Neut # 12.3 H Lymph # 1.8 Crawford # 0.8 Eos # 0.1 Baso # 0.0 Sodium 143 Potassium 3.5 L Chloride 108 H Carbon Dioxide 30 Anion Gap 9 L BUN 32 H Creatinine 0.8 Est GFR ( Amer) > 60 Est GFR (Non-Af Amer) > 60 Random Glucose 131 H Calcium 7.5 L Phosphorus 3.1 Magnesium 1.8 Total Bilirubin 0.5 AST 25 ALT 11 Alkaline Phosphatase 82 Total Protein 5.3 L Albumin 1.9 L Globulin 3.4 Albumin/Globulin Ratio 0.6 L Vancomycin Trough TB Test (QFT) Nil 0.04 TB Test Mitogen - Nil 0.03 TB Test TB - Nil <0.00 TB Test (QFT) Indeterminate H 01/05/17 06:47 WBC RBC Hgb Hct MCV MCH MCHC RDW Plt Count MPV Neut % (Auto) Lymph % (Auto) Crawford % (Auto) Eos % (Auto) Baso % (Auto) Neut # Lymph # Crawford # Eos # Baso # Sodium Potassium Chloride Carbon Dioxide Anion Gap BUN Creatinine Est GFR ( Amer) Est GFR (Non-Af Amer) Random Glucose Calcium Phosphorus Magnesium Total Bilirubin AST ALT Alkaline Phosphatase Total Protein Albumin Globulin Albumin/Globulin Ratio Vancomycin Trough 18.5 H TB Test (QFT) Nil TB Test Mitogen - Nil TB Test TB - Nil TB Test (QFT) Assessment & Plan - Assessment and Plan (Free Text) Assessment: Palliative consult Code status Full code, there is no advance directive on the chart, ROS unobtainable due to acuity of condition, PPS 20% I reviewed medical records, all diagnostic studies, examined patient ih the bed and discussed goals of care with her son Cory Hong at the bed side. ROS obtained from the son, nursing and charts. Patient is alert, lethargic with NGT in what makes her speech mumbled and difficult to understand. Patient is in no acute distress. As per last CT scan, multiple infiltrates were seen. patient placed on TygacilIV, Vanco IV, and Avelox IV. Aspiration pneumonia was suspected. patient given NGT to prevent airways. Abdomen is soft, no bowel sounds were appreciated. Abdominal staple line dry.last BM was 10/06/2016. Lewis drains yellow urine. As per son at bed side, patient had difficulties swallowing in the past. Family related it to patient's Hx of Parkinson's. patient needed assistance with feeding at home. I reviewed patient's clinical presentation with the son and elicited his impression about patient's condition. Patient's son has a very poor insight about patient's condition. He is focused on the fact that his mother walked in here and surgeon told him the surgery went well. I agreed with his statements and tried to explain that as person ages many health complications are to be expected especially if there was a complicated medical Hx. I suggested that if patient continues not to be able to swallow properly on her own, the PEG tube may be as a solution for manager intermediate artificial feeding. The son looked quite surprised, dismissed it as an option at all, but said he would talk to 6 of his siblings if it becomes a case. His ultimate goal for his mother is to fully recover and return home to her regular life. Impression * Patient is recovering after abdominal surgery * Most likely Aspiration pneumonia, as patient had difficulties swallowing in the past, prior to admission, as per patient's son * Patient is lethargic and with mumbled speech unable to participate in goals of care discussion. * Patient's wishes for end of life care are not known * patient's son has very poor insight in his mother's condition and is focused on patient's state of health prior to admission * Patient is generally weak and need max assistance in OOB to chair Suggestion * If patient does not recover well to the point to be able to swallow food, family will need a lot of counseling regarding the other options including the PEG * If that becomes a case, palliative care will schedule family meeting for extended family ( 7 children ) and discuss further goals of care * Aspiration precautions Thank you for consulting palliative care.
--- NOTE | 2017-01-05 14:29 | CP.CCUPN ---
<Jason Rajan - Last Filed: 01/05/17 14:24> CCU Subjective - Physician Review Subjective (Free Text): 01/05/17 14:24 PGY-1 ICU progress note Pt seen and examined at bedside. No acute events overnight. No change in mental status. Admits to being tired and not getting much sleep. Critical Care Time Spent (in minutes): 35 CCU Objective - Vital Signs / Intake & Output Vital Signs (Last 4 hours): Vital Signs Temp Pulse Resp BP Pulse Ox 01/05/17 13:00 98.8 F 77 27 H 100 01/05/17 12:42 78 26 H 133/49 L 97 01/05/17 12:00 80 25 H 99 01/05/17 11:42 82 23 130/58 L 98 01/05/17 10:42 82 27 H 139/44 L 96 Intake and Output (Last 8hrs): Intake & Output 01/04/17 01/05/17 01/05/17 22:59 06:59 14:59 Intake Total 810 580 330 Output Total 490 400 350 Balance 320 180 -20 Weight 187 lb Intake: Intake, IV Amount 640 420 180 Right PICC 640 420 180 Oral 50 Tube Feeding 120 160 150 Output: Urine 490 400 350 Urethral (Lewis) 490 400 350 - Physical Exam Head: Positive for: Atraumatic, Normocephalic Pupils: Positive for: PERRL Extroacular Muscles: Positive for: EOMI Conjunctiva: Positive for: Normal Mouth: Positive for: Moist Mucous Membranes Neck: Positive for: Normal Range of Motion Respiratory/Chest: Positive for: Clear to Auscultation, Decreased Breath Sounds. Negative for: Respiratory Distress, Accessory Muscle Use Cardiovascular: Positive for: Regular Rate and Rhythm, Normal S1, S2 Abdomen: Positive for: Tenderness (appropriate around surgical wound), Normal Bowel Sounds, Other (midline incision C/D/I). Negative for: Distention Upper Extremity: Positive for: Normal Inspection. Negative for: Edema Lower Extremity: Positive for: Normal Inspection, Edema. Negative for: CALF TENDERNESS Neurological: Positive for: Motor Func Grossly Intact. Negative for: CN II-XII Intact Skin: Positive for: Warm, Dry Psychiatric: Positive for: Alert - Medications Active Medications: Active Medications Generic Name Dose Route Start Last Admin Trade Name Freq PRN Reason Stop Dose Admin Acetaminophen 650 mg 12/30/16 09:18 Tylenol 325mg Tab PO Q6 PRN Fever >100.4 F Albuterol/Ipratropium 3 ml 12/30/16 09:19 01/05/17 13:56 Duoneb 3 Mg/0.5 Mg (3 Ml) Ud INH 3 ml RQ6 DESIRAE Administration Carbidopa/Levodopa 1 tab 01/05/17 00:00 01/05/17 14:15 Sinemet 10/100 PO 1 tab TID DESIRAE Administration Diltiazem HCl 90 mg 01/05/17 00:00 01/05/17 14:15 Cardizem PO 90 mg TID DESIRAE Administration Heparin Sodium (Porcine) 5,000 units 12/30/16 10:00 01/05/17 11:13 Heparin SC 5,000 units BID DESIRAE Administration Tigecycline 50 mg/ Sodium 100 mls @ 100 mls/hr 12/27/16 13:00 01/05/17 12:46 Chloride IVPB 100 mls/hr Q12H DESIRAE Administration Moxifloxacin HCl 400 mg in 250 mls @ 167 mls/hr 01/02/17 17:00 01/04/17 17:27 Avelox Iv 400mg/250ml Ns IVPB 167 mls/hr Q24H DESIRAE Administration Vancomycin/Sodium Chloride 1 gm in 200 mls @ 133 mls/hr 01/03/17 17:00 06:33 Vancocin IVPB 01/08/17 17:01 133 mls/hr Q12H DESIRAE Administration Losartan Potassium 100 mg 12/16/16 10:00 01/05/17 11:12 Cozaar PO 100 mg DAILY DESIRAE Administration Mupirocin 0.5 gm 01/04/17 20:00 01/05/17 11:12 Bactroban 2% Nasal VIRAJ 0.5 gm BID DESIRAE Administration Neomycin/Polymyxin/Hydrocortisone 2 drop 12/16/16 14:00 01/05/17 14:15 Cortisporin Otic Soln AU 2 drop QID DESIRAE Administration Nystatin 1 applic 01/02/17 10:00 01/05/17 11:14 Nystop Topical Powder TOP 1 g BID DESRIAE Administration Pantoprazole Sodium 40 mg 01/05/17 10:00 01/05/17 11:12 Protonix Inj IVP 40 mg DAILY DESIRAE Administration Phenol/Menthol 0 ml 12/18/16 08:13 12/24/16 10:54 Phenaseptic 1.4% Throat [place] 1 spr Q2H PRN Administration Sore Throat - Patient Studies Lab Studies: Microbiology Studies 01/02/17 18:15 Blood Culture - Preliminary Blood-Venous NO GROWTH AFTER 48 HOURS 01/02/17 18:00 Blood Culture - Preliminary Blood-Venous NO GROWTH AFTER 48 HOURS Lab Studies 01/05/17 01/05/17 01/05/17 Range/Units 06:47 06:22 06:22 WBC 15.1 H (4.8-10.8) K/uL RBC 3.41 L (3.80-5.20) Mil/uL Hgb 9.1 L (11.0-16.0) g/dL Hct 28.0 L (34.0-47.0) % MCV 82.2 (81.0-99.0) fL MCH 26.6 L (27.0-31.0) pg MCHC 32.4 L (33.0-37.0) g/dL RDW 16.4 H (11.5-14.5) % Plt Count 378 (130-400) K/uL MPV 6.9 L (7.2-11.7) fL Neut % (Auto) 81.7 H (50.0-75.0) % Lymph % (Auto) 11.9 L (20.0-40.0) % [place] % (Auto) 5.6 (0.0-10.0) % Eos % (Auto) 0.6 (0.0-4.0) % Baso % (Auto) 0.2 (0.0-2.0) % Neut # 12.3 H (1.8-7.0) K/uL Lymph # 1.8 (1.0-4.3) K/uL [place] # 0.8 (0.0-0.8) K/uL Eos # 0.1 (0.0-0.7) K/uL Baso # 0.0 (0.0-0.2) K/uL Sodium 143 (132-148) mmol/L Potassium 3.5 L (3.6-5.2) mmol/L Chloride 108 H (98-107) mmol/L Carbon Dioxide 30 (22-30) mmol/L Anion Gap 9 L (10-20) BUN 32 H (7-17) mg/dL Creatinine 0.8 (0.7-1.2) MG/DL Est GFR ( Amer) > 60 Est GFR (Non-Af Amer) > 60 Random Glucose 131 H (65-105) mg/dL Calcium 7.5 L (8.6-10.4) mg/dl Phosphorus 3.1 (2.5-4.5) mg/dL Magnesium 1.8 (1.6-2.3) mg/dL Total Bilirubin 0.5 (0.2-1.3) mg/dL AST 25 (14-36) U/L ALT 11 (9-52) U/L Alkaline Phosphatase 82 (38-126) U/L Total Protein 5.3 L (6.3-8.3) g/dL Albumin 1.9 L (3.5-5.0) g/dL Globulin 3.4 (2.2-3.9) gm/dL Albumin/Globulin Ratio 0.6 L (1.0-2.1) Vancomycin Trough 18.5 H (5.0-10.0) ug/mL TB Test (QFT) Nil IU/mL TB Test Mitogen - Nil IU/mL TB Test TB - Nil IU/mL TB Test (QFT) (Negative) 01/03/17 Range/Units 06:17 WBC (4.8-10.8) K/uL RBC (3.80-5.20) Mil/uL Hgb (11.0-16.0) g/dL Hct (34.0-47.0) % MCV (81.0-99.0) fL MCH (27.0-31.0) pg MCHC (33.0-37.0) g/dL RDW (11.5-14.5) % Plt Count (130-400) K/uL MPV (7.2-11.7) fL Neut % (Auto) (50.0-75.0) % Lymph % (Auto) (20.0-40.0) % [place] % (Auto) (0.0-10.0) % Eos % (Auto) (0.0-4.0) % Baso % (Auto) (0.0-2.0) % Neut # (1.8-7.0) K/uL Lymph # (1.0-4.3) K/uL [place] # (0.0-0.8) K/uL Eos # (0.0-0.7) K/uL Baso # (0.0-0.2) K/uL Sodium (132-148) mmol/L Potassium (3.6-5.2) mmol/L Chloride (98-107) mmol/L Carbon Dioxide (22-30) mmol/L Anion Gap (10-20) BUN (7-17) mg/dL Creatinine (0.7-1.2) MG/DL Est GFR ( Amer) Est GFR (Non-Af Amer) Random Glucose (65-105) mg/dL Calcium (8.6-10.4) mg/dl Phosphorus (2.5-4.5) mg/dL Magnesium (1.6-2.3) mg/dL Total Bilirubin (0.2-1.3) mg/dL AST (14-36) U/L ALT (9-52) U/L Alkaline Phosphatase (38-126) U/L Total Protein (6.3-8.3) g/dL Albumin (3.5-5.0) g/dL Globulin (2.2-3.9) gm/dL Albumin/Globulin Ratio (1.0-2.1) Vancomycin Trough (5.0-10.0) ug/mL TB Test (QFT) Nil 0.04 IU/mL TB Test Mitogen - Nil 0.03 IU/mL TB Test TB - Nil <0.00 IU/mL TB Test (QFT) Indeterminate H (Negative) Laboratory Results - last 24 hr 01/03/17 01/05/17 01/05/17 06:17 06:22 06:22 WBC 15.1 H RBC 3.41 L Hgb 9.1 L Hct 28.0 L MCV 82.2 MCH 26.6 L MCHC 32.4 L RDW 16.4 H Plt Count 378 MPV 6.9 L Neut % (Auto) 81.7 H Lymph % (Auto) 11.9 L [place] % (Auto) 5.6 Eos % (Auto) 0.6 Baso % (Auto) 0.2 Neut # 12.3 H Lymph # 1.8 [place] # 0.8 Eos # 0.1 Baso # 0.0 Sodium 143 Potassium 3.5 L Chloride 108 H Carbon Dioxide 30 Anion Gap 9 L BUN 32 H Creatinine 0.8 Est GFR ( Amer) > 60 Est GFR (Non-Af Amer) > 60 Random Glucose 131 H Calcium 7.5 L Phosphorus 3.1 Magnesium 1.8 Total Bilirubin 0.5 AST 25 ALT 11 Alkaline Phosphatase 82 Total Protein 5.3 L Albumin 1.9 L Globulin 3.4 Albumin/Globulin Ratio 0.6 L Vancomycin Trough TB Test (QFT) Nil 0.04 TB Test Mitogen - Nil 0.03 TB Test TB - Nil <0.00 TB Test (QFT) Indeterminate H 01/05/17 06:47 WBC RBC Hgb Hct MCV MCH MCHC RDW Plt Count MPV Neut % (Auto) Lymph % (Auto) [place] % (Auto) Eos % (Auto) Baso % (Auto) Neut # Lymph # [place] # Eos # Baso # Sodium Potassium Chloride Carbon Dioxide Anion Gap BUN Creatinine Est GFR ( Amer) Est GFR (Non-Af Amer) Random Glucose Calcium Phosphorus Magnesium Total Bilirubin AST ALT Alkaline Phosphatase Total Protein Albumin Globulin Albumin/Globulin Ratio Vancomycin Trough 18.5 H TB Test (QFT) Nil TB Test Mitogen - Nil TB Test TB - Nil TB Test (QFT) Review of Systems - Review of Systems All systems: reviewed and no additional remarkable complaints except (where noted in HPI) Assessment/Plan - Assessment and Plan (Free Text) Assessment: This is an 86 yo F with respiratory distress, secondary to likely pneumonia, now on off of BiPAP, tolerating well. Pt is more alert today and able to get OOB to chair. No changes since yesterday Plan: Neuro: Alert and follows directions, baseline demented Cardiovascular: Hemodynamically stable. Continue home HTN meds Pulmonary: On NC at 3L, tolerating well. Continue to monitor. Continue Tigecycline, Avelox and Vancomycin as per ID Continue duonebs Cultures negative Monitor Gastrointestinal: Failed swallow eval NG tube placed Tube feeds No acute issues Hematology: Lower extremity doppler - acute thrombosis of the right femoral vein with severe reduction of the venous return. Acute thrombosis of the right common femoral vein with mild reduction of venous return. acute thrombosis of the left common femoral and femoral veins with mild reduction of the venous return. Pt has IVC Endocrine: No acute issues Renal: No acute issues, monitor labs Good urine output Infectious Disease: Afebrile, stable leukocytosis Continue Tigecycline, Avelox and vanco ID following - pancultures, sputum for AFB, Quant gold TB test GI Prophylaxis: Protonix DVT Prophylaxis: Heparin Dispo - Will transfer to med/surg <Kevin Bowdenav - Last Filed: 01/05/17 14:35> CCU Objective - Vital Signs / Intake & Output Vital Signs (Last 4 hours): Vital Signs Temp Pulse Resp BP Pulse Ox 01/05/17 13:00 98.8 F 77 27 H 100 01/05/17 12:42 78 26 H 133/49 L 97 01/05/17 12:00 80 25 H 99 01/05/17 11:42 82 23 130/58 L 98 01/05/17 10:42 82 27 H 139/44 L 96 Intake and Output (Last 8hrs): Intake & Output 01/04/17 01/05/17 01/05/17 22:59 06:59 14:59 Intake Total 810 580 330 Output Total 490 400 350 Balance 320 180 -20 Weight 187 lb Intake: Intake, IV Amount 640 420 180 Right PICC 640 420 180 Oral 50 Tube Feeding 120 160 150 Output: Urine 490 400 350 Urethral (Lewis) 490 400 350 - Medications Active Medications: Active Medications Generic Name Dose Route Start Last Admin Trade Name Freq PRN Reason Stop Dose Admin Acetaminophen 650 mg 12/30/16 09:18 Tylenol 325mg Tab PO Q6 PRN Fever >100.4 F Albuterol/Ipratropium 3 ml 12/30/16 09:19 01/05/17 13:56 Duoneb 3 Mg/0.5 Mg (3 Ml) Ud INH 3 ml RQ6 DESIRAE Administration Carbidopa/Levodopa 1 tab 01/05/17 00:00 01/05/17 14:15 Sinemet 10/100 PO 1 tab TID DESIRAE Administration Diltiazem HCl 90 mg 01/05/17 00:00 01/05/17 14:15 Cardizem PO 90 mg TID DESIRAE Administration Heparin Sodium (Porcine) 5,000 units 12/30/16 10:00 01/05/17 11:13 Heparin SC 5,000 units BID DESIRAE Administration Tigecycline 50 mg/ Sodium 100 mls @ 100 mls/hr 12/27/16 13:00 01/05/17 12:46 Chloride IVPB 100 mls/hr Q12H DESIRAE Administration Moxifloxacin HCl 400 mg in 250 mls @ 167 mls/hr 01/02/17 17:00 01/04/17 17:27 Avelox Iv 400mg/250ml Ns IVPB 167 mls/hr Q24H DESIRAE Administration Vancomycin/Sodium Chloride 1 gm in 200 mls @ 133 mls/hr 01/03/17 17:00 06:33 Vancocin IVPB 01/08/17 17:01 133 mls/hr Q12H DESIRAE Administration Losartan Potassium 100 mg 12/16/16 10:00 01/05/17 11:12 Cozaar PO 100 mg DAILY DESIRAE Administration Mupirocin 0.5 gm 01/04/17 20:00 01/05/17 11:12 Bactroban 2% Nasal VIRAJ 0.5 gm BID DESIRAE Administration Neomycin/Polymyxin/Hydrocortisone 2 drop 12/16/16 14:00 01/05/17 14:15 Cortisporin Otic Soln AU 2 drop QID DESIRAE Administration Nystatin 1 applic 01/02/17 10:00 01/05/17 11:14 Nystop Topical Powder TOP 1 g BID DESIRAE Administration Pantoprazole Sodium 40 mg 01/05/17 10:00 01/05/17 11:12 Protonix Inj IVP 40 mg DAILY DESIRAE Administration Phenol/Menthol 0 ml 12/18/16 08:13 12/24/16 10:54 Phenaseptic 1.4% Throat [place] MT 1 spr Q2H PRN Administration Sore Throat - Patient Studies Lab Studies: Microbiology Studies 01/02/17 18:15 Blood Culture - Preliminary Blood-Venous NO GROWTH AFTER 48 HOURS 01/02/17 18:00 Blood Culture - Preliminary Blood-Venous NO GROWTH AFTER 48 HOURS Lab Studies 01/05/17 01/05/17 01/05/17 Range/Units 06:47 06:22 06:22 WBC 15.1 H (4.8-10.8) K/uL RBC 3.41 L (3.80-5.20) Mil/uL Hgb 9.1 L (11.0-16.0) g/dL Hct 28.0 L (34.0-47.0) % MCV 82.2 (81.0-99.0) fL MCH 26.6 L (27.0-31.0) pg MCHC 32.4 L (33.0-37.0) g/dL RDW 16.4 H (11.5-14.5) % Plt Count 378 (130-400) K/uL MPV 6.9 L (7.2-11.7) fL Neut % (Auto) 81.7 H (50.0-75.0) % Lymph % (Auto) 11.9 L (20.0-40.0) % [place] % (Auto) 5.6 (0.0-10.0) % Eos % (Auto) 0.6 (0.0-4.0) % Baso % (Auto) 0.2 (0.0-2.0) % Neut # 12.3 H (1.8-7.0) K/uL Lymph # 1.8 (1.0-4.3) K/uL [place] # 0.8 (0.0-0.8) K/uL Eos # 0.1 (0.0-0.7) K/uL Baso # 0.0 (0.0-0.2) K/uL Sodium 143 (132-148) mmol/L Potassium 3.5 L (3.6-5.2) mmol/L Chloride 108 H (98-107) mmol/L Carbon Dioxide 30 (22-30) mmol/L Anion Gap 9 L (10-20) BUN 32 H (7-17) mg/dL Creatinine 0.8 (0.7-1.2) MG/DL Est GFR ( Amer) > 60 Est GFR (Non-Af Amer) > 60 Random Glucose 131 H (65-105) mg/dL Calcium 7.5 L (8.6-10.4) mg/dl Phosphorus 3.1 (2.5-4.5) mg/dL Magnesium 1.8 (1.6-2.3) mg/dL Total Bilirubin 0.5 (0.2-1.3) mg/dL AST 25 (14-36) U/L ALT 11 (9-52) U/L Alkaline Phosphatase 82 (38-126) U/L Total Protein 5.3 L (6.3-8.3) g/dL Albumin 1.9 L (3.5-5.0) g/dL Globulin 3.4 (2.2-3.9) gm/dL Albumin/Globulin Ratio 0.6 L (1.0-2.1) Vancomycin Trough 18.5 H (5.0-10.0) ug/mL TB Test (QFT) Nil IU/mL TB Test Mitogen - Nil IU/mL TB Test TB - Nil IU/mL TB Test (QFT) (Negative) 01/03/17 Range/Units 06:17 WBC (4.8-10.8) K/uL RBC (3.80-5.20) Mil/uL Hgb (11.0-16.0) g/dL Hct (34.0-47.0) % MCV (81.0-99.0) fL MCH (27.0-31.0) pg MCHC (33.0-37.0) g/dL RDW (11.5-14.5) % Plt Count (130-400) K/uL MPV (7.2-11.7) fL Neut % (Auto) (50.0-75.0) % Lymph % (Auto) (20.0-40.0) % [place] % (Auto) (0.0-10.0) % Eos % (Auto) (0.0-4.0) % Baso % (Auto) (0.0-2.0) % Neut # (1.8-7.0) K/uL Lymph # (1.0-4.3) K/uL [place] # (0.0-0.8) K/uL Eos # (0.0-0.7) K/uL Baso # (0.0-0.2) K/uL Sodium (132-148) mmol/L Potassium (3.6-5.2) mmol/L Chloride (98-107) mmol/L Carbon Dioxide (22-30) mmol/L Anion Gap (10-20) BUN (7-17) mg/dL Creatinine (0.7-1.2) MG/DL Est GFR ( Amer) Est GFR (Non-Af Amer) Random Glucose (65-105) mg/dL Calcium (8.6-10.4) mg/dl Phosphorus (2.5-4.5) mg/dL Magnesium (1.6-2.3) mg/dL Total Bilirubin (0.2-1.3) mg/dL AST (14-36) U/L ALT (9-52) U/L Alkaline Phosphatase (38-126) U/L Total Protein (6.3-8.3) g/dL Albumin (3.5-5.0) g/dL Globulin (2.2-3.9) gm/dL Albumin/Globulin Ratio (1.0-2.1) Vancomycin Trough (5.0-10.0) ug/mL TB Test (QFT) Nil 0.04 IU/mL TB Test Mitogen - Nil 0.03 IU/mL TB Test TB - Nil <0.00 IU/mL TB Test (QFT) Indeterminate H (Negative) Laboratory Results - last 24 hr 01/03/17 01/05/17 01/05/17 06:17 06:22 06:22 WBC 15.1 H RBC 3.41 L Hgb 9.1 L Hct 28.0 L MCV 82.2 MCH 26.6 L MCHC 32.4 L RDW 16.4 H Plt Count 378 MPV 6.9 L Neut % (Auto) 81.7 H Lymph % (Auto) 11.9 L [place] % (Auto) 5.6 Eos % (Auto) 0.6 Baso % (Auto) 0.2 Neut # 12.3 H Lymph # 1.8 [place] # 0.8 Eos # 0.1 Baso # 0.0 Sodium 143 Potassium 3.5 L Chloride 108 H Carbon Dioxide 30 Anion Gap 9 L BUN 32 H Creatinine 0.8 Est GFR ( Amer) > 60 Est GFR (Non-Af Amer) > 60 Random Glucose 131 H Calcium 7.5 L Phosphorus 3.1 Magnesium 1.8 Total Bilirubin 0.5 AST 25 ALT 11 Alkaline Phosphatase 82 Total Protein 5.3 L Albumin 1.9 L Globulin 3.4 Albumin/Globulin Ratio 0.6 L Vancomycin Trough TB Test (QFT) Nil 0.04 TB Test Mitogen - Nil 0.03 TB Test TB - Nil <0.00 TB Test (QFT) Indeterminate H 01/05/17 06:47 WBC RBC Hgb Hct MCV MCH MCHC RDW Plt Count MPV Neut % (Auto) Lymph % (Auto) [place] % (Auto) Eos % (Auto) Baso % (Auto) Neut # Lymph # [place] # Eos # Baso # Sodium Potassium Chloride Carbon Dioxide Anion Gap BUN Creatinine Est GFR ( Amer) Est GFR (Non-Af Amer) Random Glucose Calcium Phosphorus Magnesium Total Bilirubin AST ALT Alkaline Phosphatase Total Protein Albumin Globulin Albumin/Globulin Ratio Vancomycin Trough 18.5 H TB Test (QFT) Nil TB Test Mitogen - Nil TB Test TB - Nil TB Test (QFT) Attending/Attestation - Attestation I have personally seen and examined this patient.: Yes I have fully participated in the care of the patient.: Yes I have reviewed all pertinent clinical information: Yes Notes (Text): 01/05/17 14:34 Pt seen and examined on rounds with Dr. Rajan and pt RN. All pertinent PN/labs/ meds/imaging reviewed personally and discussed with involved consultants. I agree with the assessment and plan as outlined above which reflects my direct input. slow improvement cont supp care palliative care requested to assist with family discussion and clarifying goals of care. transfer to med/surg Harsha Bowden MD
--- NOTE | 2017-01-05 15:06 | CP.PCM.PN ---
Subjective - Date & Time of Evaluation Date of Evaluation: 01/05/17 Time of Evaluation: 09:40 - Subjective Subjective: patient seen and examined. This is an 86 yo F with respiratory distress, secondary to likely pneumonia, now off of BiPAP, On nasal cannula. Pt is more alert today and able to get OOB to chair. Objective - Vital Signs/Intake and Output Vital Signs (last 24 hours): Temp Pulse Resp BP Pulse Ox 98.8 F 77 27 H 133/49 L 100 01/05/17 13:00 01/05/17 13:00 01/05/17 13:00 01/05/17 12:42 01/05/17 13:00 Intake and Output: 01/05/17 01/05/17 06:59 18:59 Intake Total 820 330 Output Total 615 350 Balance 205 -20 - Medications Medications: Current Medications Acetaminophen (Tylenol 325mg Tab) 650 mg PO Q6 PRN PRN Reason: Fever >100.4 F Albuterol/Ipratropium (Duoneb 3 Mg/0.5 Mg (3 Ml) Ud) 3 ml INH RQ6 [facility] Last Admin: 01/05/17 13:56 Dose: 3 ml Carbidopa/Levodopa (Sinemet 10/100) 1 tab PO TID [facility] Last Admin: 01/05/17 14:15 Dose: 1 tab Diltiazem HCl (Cardizem) 90 mg PO TID [facility] Last Admin: 01/05/17 14:15 Dose: 90 mg Heparin Sodium (Porcine) (Heparin) 5,000 units SC BID [facility] Last Admin: 01/05/17 11:13 Dose: 5,000 units Tigecycline 50 mg/ Sodium (Chloride) 100 mls @ 100 mls/hr IVPB Q12H [facility] Last Admin: 01/05/17 12:46 Dose: 100 mls/hr Moxifloxacin HCl (Avelox Iv 400mg/250ml Ns) 400 mg in 250 mls @ 167 mls/hr IVPB Q24H [facility] Last Admin: 01/04/17 17:27 Dose: 167 mls/hr Vancomycin/Sodium Chloride (Vancocin) 1 gm in 200 mls @ 133 mls/hr IVPB Q12H [facility] Stop: 01/08/17 17:01 Last Admin: 01/05/17 06:33 Dose: 133 mls/hr Losartan Potassium (Cozaar) 100 mg PO DAILY [facility] Last Admin: 01/05/17 11:12 Dose: 100 mg Mupirocin (Bactroban 2% Nasal) 0.5 gm VIRAJ BID [facility] Last Admin: 01/05/17 11:12 Dose: 0.5 gm Neomycin/Polymyxin/Hydrocortisone (Cortisporin Otic Soln) 2 drop AU QID [facility] Last Admin: 01/05/17 14:15 Dose: 2 drop Nystatin (Nystop Topical Powder) 1 applic TOP BID [facility] Last Admin: 01/05/17 11:14 Dose: 1 g Pantoprazole Sodium (Protonix Inj) 40 mg IVP DAILY [facility] Last Admin: 01/05/17 11:12 Dose: 40 mg Phenol/Menthol (Phenaseptic 1.4% Throat [place]) 0 ml MT Q2H PRN PRN Reason: Sore Throat Last Admin: 12/24/16 10:54 Dose: 1 spr - Labs Labs: 01/05/17 06:22 01/05/17 06:22 PT 12.6 SECONDS (9.7-12.2) H 12/21/16 11:39 INR 1.1 12/21/16 11:39 APTT 25 SECONDS (21-34) 12/21/16 11:39 - Head Exam Head Exam: ATRAUMATIC, NORMOCEPHALIC - ENT Exam ENT Exam: Mucous Membranes Moist - Neck Exam Neck Exam: Normal Inspection - Respiratory Exam Respiratory Exam: Decreased Breath Sounds - Cardiovascular Exam Cardiovascular Exam: REGULAR RHYTHM - GI/Abdominal Exam GI & Abdominal Exam: Soft, Normal Bowel Sounds Assessment and Plan (1) Pneumonia Status: Acute (2) COPD exacerbation Status: Acute
[2017-01-05] MEDS: Moxifloxacin IV 400mg/250ml NS 400 MG/250 ML BAG IVPB SCH (17:56)
--- NOTE | 2017-01-05 22:57 | CP.PCM.PN ---
Subjective - Date & Time of Evaluation Date of Evaluation: 01/05/17 Time of Evaluation: 21:00 - Subjective Subjective: Pt seen and examined, still c/o some abdominal pain Objective - Vital Signs/Intake and Output Vital Signs (last 24 hours): Temp Pulse Resp BP Pulse Ox 97.9 F 73 22 121/43 L 98 01/05/17 17:00 01/05/17 18:42 01/05/17 18:42 01/05/17 18:42 01/05/17 18:42 Intake and Output: 01/05/17 01/06/17 18:59 06:59 Intake Total 905 Output Total 600 Balance 305 - Medications Medications: Current Medications Acetaminophen (Tylenol 325mg Tab) 650 mg PO Q6 PRN PRN Reason: Fever >100.4 F Albuterol/Ipratropium (Duoneb 3 Mg/0.5 Mg (3 Ml) Ud) 3 ml INH RQ6 [facility] Last Admin: 01/05/17 19:34 Dose: 3 ml Carbidopa/Levodopa (Sinemet 10/100) 1 tab PO TID [facility] Last Admin: 01/05/17 17:54 Dose: 1 tab Diltiazem HCl (Cardizem) 90 mg PO TID [facility] Last Admin: 01/05/17 17:53 Dose: 90 mg Heparin Sodium (Porcine) (Heparin) 5,000 units SC BID [facility] Last Admin: 01/05/17 17:52 Dose: 5,000 units Tigecycline 50 mg/ Sodium (Chloride) 100 mls @ 100 mls/hr IVPB Q12H [facility] Last Admin: 01/05/17 12:46 Dose: 100 mls/hr Moxifloxacin HCl (Avelox Iv 400mg/250ml Ns) 400 mg in 250 mls @ 167 mls/hr IVPB Q24H [facility] Last Admin: 01/05/17 17:56 Dose: 167 mls/hr Vancomycin/Sodium Chloride (Vancocin) 1 gm in 200 mls @ 133 mls/hr IVPB Q12H [facility] Stop: 01/08/17 17:01 Last Admin: 01/05/17 17:53 Dose: 133 mls/hr Losartan Potassium (Cozaar) 100 mg PO DAILY [facility] Last Admin: 01/05/17 11:12 Dose: 100 mg Mupirocin (Bactroban 2% Nasal) 0.5 gm VIRAJ BID [facility] Last Admin: 01/05/17 17:53 Dose: 0.5 gm Neomycin/Polymyxin/Hydrocortisone (Cortisporin Otic Soln) 2 drop AU QID [facility] Last Admin: 01/05/17 22:09 Dose: 2 drop Nystatin (Nystop Topical Powder) 1 applic TOP BID [facility] Last Admin: 01/05/17 17:56 Dose: 1 g Pantoprazole Sodium (Protonix Inj) 40 mg IVP DAILY [facility] Last Admin: 01/05/17 11:12 Dose: 40 mg Phenol/Menthol (Phenaseptic 1.4% [place]) 0 ml MT Q2H PRN PRN Reason: Sore Throat Last Admin: 12/24/16 10:54 Dose: 1 spr - Labs Labs: 01/05/17 06:22 01/05/17 06:22 PT 12.6 SECONDS (9.7-12.2) H 12/21/16 11:39 INR 1.1 12/21/16 11:39 APTT 25 SECONDS (21-34) 12/21/16 11:39 Assessment and Plan (1) Abdominal pain Status: Acute (2) Small bowel obstruction Status: Acute (3) Diabetes mellitus Status: Chronic (4) Hypertension Status: Chronic (5) Pneumonia Status: Acute
[2017-01-06] MEDS: Albuterol-Ipratrop 3 mg / 0.5 (3 ml) UD INH SCH ×4 (01:13→19:25)
[2017-01-06] MEDS: Vancomycin 1 gm/NS 200 ml 1 GM/200 ML BAG IVPB SCH ×2 (04:41→17:55)
[2017-01-06] MEDS: Mupirocin 2% Ointment (NASAL) NAS SCH ×2 (09:46→17:55)
[2017-01-06] MEDS: Neomycin/Polymyxin/Hydrocort Otic Soln BOTTLE AU SCH ×4 (09:50→21:57)
--- NOTE | 2017-01-06 14:22 | CP.PCM.PN ---
Subjective - Date & Time of Evaluation Date of Evaluation: 01/06/17 Time of Evaluation: 14:22 - Subjective Subjective: imax 99.0 MORE ALERT OFF BIPAP. on 3L BY NASAL CANNULA. AWAKE ON FEEDINGS WBC 15.1-improving RENAL FUNCTION OK. LFTS OK NOSE +VE MRSA. 01/02/17 BLOOD CULTURES -VE GROWTH X 24HRS. vanc trough 18.9 01/05/15 -ok Objective - Vital Signs/Intake and Output Vital Signs (last 24 hours): Temp Pulse Resp BP Pulse Ox 99.0 F 85 23 147/54 L 100 01/06/17 09:00 01/06/17 12:42 01/06/17 12:42 01/06/17 12:42 01/06/17 12:42 Intake and Output: 01/06/17 01/06/17 06:59 18:59 Intake Total 850 250 Output Total 445 275 Balance 405 -25 - Medications Medications: Current Medications Acetaminophen (Tylenol 325mg Tab) 650 mg PO Q6 PRN PRN Reason: Fever >100.4 F Albuterol/Ipratropium (Duoneb 3 Mg/0.5 Mg (3 Ml) Ud) 3 ml INH RQ6 [facility] Last Admin: 01/06/17 13:37 Dose: 3 ml Carbidopa/Levodopa (Sinemet 10/100) 1 tab PO TID [facility] Last Admin: 01/06/17 13:07 Dose: 1 tab Diltiazem HCl (Cardizem) 90 mg PO TID [facility] Last Admin: 01/06/17 13:06 Dose: 90 mg Heparin Sodium (Porcine) (Heparin) 5,000 units SC BID [facility] Last Admin: 01/06/17 09:45 Dose: 5,000 units Tigecycline 50 mg/ Sodium (Chloride) 100 mls @ 100 mls/hr IVPB Q12H [facility] Last Admin: 01/06/17 13:06 Dose: 100 mls/hr Moxifloxacin HCl (Avelox Iv 400mg/250ml Ns) 400 mg in 250 mls @ 167 mls/hr IVPB Q24H [facility] Last Admin: 01/05/17 17:56 Dose: 167 mls/hr Vancomycin/Sodium Chloride (Vancocin) 1 gm in 200 mls @ 133 mls/hr IVPB Q12H [facility] Stop: 01/08/17 17:01 Last Admin: 01/06/17 04:41 Dose: 133 mls/hr Losartan Potassium (Cozaar) 100 mg PO DAILY [facility] Last Admin: 01/06/17 09:45 Dose: 100 mg Mupirocin (Bactroban 2% Nasal) 0.5 gm VIRAJ BID [facility] Last Admin: 01/06/17 09:46 Dose: 0.5 gm Neomycin/Polymyxin/Hydrocortisone (Cortisporin Otic Soln) 2 drop AU QID [facility] Last Admin: 01/06/17 13:06 Dose: 2 drop Nystatin (Nystop Topical Powder) 1 applic TOP BID [facility] Last Admin: 01/06/17 09:46 Dose: 1 g Pantoprazole Sodium (Protonix Inj) 40 mg IVP DAILY [facility] Last Admin: 01/06/17 09:45 Dose: 40 mg Phenol/Menthol (Phenaseptic 1.4% Throat [place]) 0 ml MT Q2H PRN PRN Reason: Sore Throat Last Admin: 12/24/16 10:54 Dose: 1 spr - Labs Labs: 01/05/17 06:22 01/05/17 06:22 PT 12.6 SECONDS (9.7-12.2) H 12/21/16 11:39 INR 1.1 12/21/16 11:39 APTT 25 SECONDS (21-34) 12/21/16 11:39 - Constitutional Appears: No Acute Distress - Head Exam Head Exam: NORMAL INSPECTION - Eye Exam Eye Exam: EOMI, PERRL - ENT Exam ENT Exam: Normal Oropharynx - Respiratory Exam Respiratory Exam: Decreased Breath Sounds, Rhonchi (B/L) - Cardiovascular Exam Cardiovascular Exam: REGULAR RHYTHM, +S1, +S2 - GI/Abdominal Exam GI & Abdominal Exam: Soft, Normal Bowel Sounds - Extremities Exam Extremities Exam: Pedal Edema. absent: Calf Tenderness - Neurological Exam Neurological Exam: Awake - Psychiatric Exam Psychiatric exam: Normal Affect - Skin Skin Exam: Normal Color, Warm Assessment and Plan (1) Fever Status: Acute (2) Pneumonia Assessment & Plan: continue iv tygacil 50mg ivpb [id number]. on iv avelox 400mg iv od daily continue iv vancomycin 1 gm ivpb q 12hrly. QUANTIFERON GOLD TB TEST- INDETERMINATE. SPUTUM COULD NOT BE INDUCED PER RN. F/U CXR- WILL DISCUSS W PULMONARY Status: Suspected (3) Small bowel obstruction Assessment & Plan: INCISIN SITE CLEAN. Status: Acute (4) COPD exacerbation Status: Acute (5) Diabetes mellitus Status: Chronic (6) Hypertension Status: Chronic (7) Anemia Status: Acute
--- NOTE | 2017-01-06 17:27 | PN ---
DATE: 01/06/2017 SUBJECTIVE: The patient was transferred to ICU because of shortness of breath that required BiPAP. The patient tested positive for DVT of both femoral veins on 01/01. No reported chest pain or ventric ular arrhythmia. PHYSICAL EXAMINATION: VITAL SIGNS: Blood pressure 126/39, heart rate 81, respirations 24, temperature 99. HEENT: Pale conjunctivae. CHEST: Clear. HEART: S1, S2 regular. EXTREMITIES: No edema. LABORATORIES: Today's potassium 3.5, BUN and creatinine of 32 and 0.8. CBC: WBC 15.1, hemoglobin a nd hematocrit 9.1 and 28, platelet count 378,000. Chest x-ray performed on 01/01 revealed nasogastric tube, possible subsegmental atelectasis at the left lung base, no significant pleural effusion. Off icial report venous Doppler of lower extremity on 01/01: Acute thrombosis of the right femoral vein w ith severe reduction of venous flow, acute thrombosis of the left common femoral vein with some mild reduction of venous flow. Head CT scan done on 01/01 nonspecific white matter changes. ASSESSMENT: 1. Bilateral deep venous thrombosis. 2. Possible pneumonia. 3. Small-bowel obstruction, status post exploratory lap and distal small bowel resection. 4. Hypertension. 5. Atrial fibrillation. RECOMMENDATIONS: Continue current IV Avelox at 400 mg daily. Continue Cardizem at 90 mg t.i.d., [place]ar 100 mg once a day, IV tigecycline a 50 mg twice a day and IV vancomycin at 1 gram twice a day. C onsider discontinuation of intravenous heparin and initiating therapeutic subcutaneous Lovenox if the patient is cleared from the surgical point of view. Obtain 12-lead EKG. Eben Rojas MD cc: [id number] TT: 01/06/2017 17:25:57 Confirmation # [id number] Dictation # [id number] dora
[2017-01-06] MEDS: Moxifloxacin IV 400mg/250ml NS 400 MG/250 ML BAG IVPB SCH (17:56)
--- NOTE | 2017-01-06 23:32 | CP.PCM.PN ---
Subjective - Date & Time of Evaluation Date of Evaluation: 01/06/17 Time of Evaluation: 20:00 - Subjective Subjective: Pt seen and examined, is afebrile, remains on BIPAP, weak, drowsy and lethargic , s/p SBO surgery Objective - Vital Signs/Intake and Output Vital Signs (last 24 hours): Temp Pulse Resp BP Pulse Ox 100.4 F H 91 H 25 H 144/51 L 100 01/06/17 20:10 01/06/17 20:10 01/06/17 20:10 01/06/17 20:10 01/06/17 20:10 Intake and Output: 01/06/17 01/07/17 18:59 06:59 Intake Total 1220 200 Output Total 1175 175 Balance 45 25 - Medications Medications: Current Medications Acetaminophen (Tylenol 325mg Tab) 650 mg PO Q6 PRN PRN Reason: Fever >100.4 F Last Admin: 01/06/17 20:44 Dose: 650 mg Albuterol/Ipratropium (Duoneb 3 Mg/0.5 Mg (3 Ml) Ud) 3 ml INH RQ6 [facility] Last Admin: 01/06/17 19:25 Dose: 3 ml Carbidopa/Levodopa (Sinemet 10/100) 1 tab PO TID [facility] Last Admin: 01/06/17 17:55 Dose: 1 tab Diltiazem HCl (Cardizem) 90 mg PO TID [facility] Last Admin: 01/06/17 17:55 Dose: 90 mg Heparin Sodium (Porcine) (Heparin) 5,000 units SC BID [facility] Last Admin: 01/06/17 17:54 Dose: 5,000 units Tigecycline 50 mg/ Sodium (Chloride) 100 mls @ 100 mls/hr IVPB Q12H [facility] Last Admin: 01/06/17 13:06 Dose: 100 mls/hr Moxifloxacin HCl (Avelox Iv 400mg/250ml Ns) 400 mg in 250 mls @ 167 mls/hr IVPB Q24H [facility] Last Admin: 01/06/17 17:56 Dose: 167 mls/hr Vancomycin/Sodium Chloride (Vancocin) 1 gm in 200 mls @ 133 mls/hr IVPB Q12H [facility] Stop: 01/08/17 17:01 Last Admin: 01/06/17 17:55 Dose: 133 mls/hr Losartan Potassium (Cozaar) 100 mg PO DAILY [facility] Last Admin: 01/06/17 09:45 Dose: 100 mg Mupirocin (Bactroban 2% Nasal) 0.5 gm VIRAJ BID [facility] Last Admin: 01/06/17 17:55 Dose: 0.5 gm Neomycin/Polymyxin/Hydrocortisone (Cortisporin Otic Soln) 2 drop AU QID [facility] Last Admin: 01/06/17 21:57 Dose: 2 drop Nystatin (Nystop Topical Powder) 1 applic TOP BID [facility] Last Admin: 01/06/17 17:56 Dose: 1 g Pantoprazole Sodium (Protonix Inj) 40 mg IVP DAILY [facility] Last Admin: 01/06/17 09:45 Dose: 40 mg Phenol/Menthol (Phenaseptic 1.4% Throat [place]) 0 ml MT Q2H PRN PRN Reason: Sore Throat Last Admin: 12/24/16 10:54 Dose: 1 spr - Labs Labs: 01/05/17 06:22 01/05/17 06:22 PT 12.6 SECONDS (9.7-12.2) H 12/21/16 11:39 INR 1.1 12/21/16 11:39 APTT 25 SECONDS (21-34) 12/21/16 11:39 - Constitutional Appears: No Acute Distress - Head Exam Head Exam: ATRAUMATIC, NORMAL INSPECTION, NORMOCEPHALIC - ENT Exam ENT Exam: Mucous Membranes Moist - Respiratory Exam Respiratory Exam: Clear to Ausculation Bilateral, NORMAL BREATHING PATTERN - Cardiovascular Exam Cardiovascular Exam: REGULAR RHYTHM, +S1, +S2. absent: Murmur Assessment and Plan (1) Abdominal pain Status: Acute (2) Small bowel obstruction Status: Acute (3) Diabetes mellitus Status: Chronic (4) Hypertension Status: Chronic (5) Pneumonia Status: Acute
[2017-01-07] MEDS: Albuterol-Ipratrop 3 mg / 0.5 (3 ml) UD INH SCH ×4 (01:35→19:37)
[2017-01-07] MEDS: Vancomycin 1 gm/NS 200 ml 1 GM/200 ML BAG IVPB SCH ×2 (05:01→18:17)
[2017-01-07] MEDS: Mupirocin 2% Ointment (NASAL) NAS SCH ×2 (09:44→18:17)
[2017-01-07] MEDS: Neomycin/Polymyxin/Hydrocort Otic Soln BOTTLE AU SCH ×3 (09:47→18:26)
--- NOTE | 2017-01-07 12:03 | CP.PCM.PN ---
Subjective - Date & Time of Evaluation Date of Evaluation: 01/07/17 Time of Evaluation: 10:00 - Subjective Subjective: Pt is out of ICU, more alert, less lethargic, afberile, NG tube feeding Objective - Vital Signs/Intake and Output Vital Signs (last 24 hours): Temp Pulse Resp BP Pulse Ox 97.7 F 92 H 27 H 144/66 100 01/07/17 08:00 01/07/17 08:00 01/07/17 08:00 01/07/17 08:00 01/07/17 08:00 Intake and Output: 01/07/17 01/07/17 06:59 18:59 Intake Total 750 50 Output Total 700 Balance 50 50 - Medications Medications: Current Medications Acetaminophen (Tylenol 325mg Tab) 650 mg PO Q6 PRN PRN Reason: Fever >100.4 F Last Admin: 01/07/17 11:49 Dose: 650 mg Albuterol/Ipratropium (Duoneb 3 Mg/0.5 Mg (3 Ml) Ud) 3 ml INH RQ6 [facility] Last Admin: 01/07/17 07:48 Dose: 3 ml Carbidopa/Levodopa (Sinemet 10/100) 1 tab PO TID [facility] Last Admin: 01/07/17 09:44 Dose: 1 tab Diltiazem HCl (Cardizem) 90 mg PO TID [facility] Last Admin: 01/07/17 09:44 Dose: 90 mg Tigecycline 50 mg/ Sodium (Chloride) 100 mls @ 100 mls/hr IVPB Q12H [facility] Last Admin: 01/07/17 00:47 Dose: 100 mls/hr Moxifloxacin HCl (Avelox Iv 400mg/250ml Ns) 400 mg in 250 mls @ 167 mls/hr IVPB Q24H [facility] Last Admin: 01/06/17 17:56 Dose: 167 mls/hr Vancomycin/Sodium Chloride (Vancocin) 1 gm in 200 mls @ 133 mls/hr IVPB Q12H [facility] Stop: 01/08/17 17:01 Last Admin: 01/07/17 05:01 Dose: 133 mls/hr Losartan Potassium (Cozaar) 100 mg PO DAILY [facility] Last Admin: 01/07/17 09:44 Dose: 100 mg Mupirocin (Bactroban 2% Nasal) 0.5 gm VIRAJ BID [facility] Last Admin: 01/07/17 09:44 Dose: 0.5 gm Neomycin/Polymyxin/Hydrocortisone (Cortisporin Otic Soln) 2 drop AU QID [facility] Last Admin: 01/07/17 09:47 Dose: 2 drop Nystatin (Nystop Topical Powder) 1 applic TOP BID [facility] Last Admin: 01/07/17 09:47 Dose: 1 g Pantoprazole Sodium (Protonix Inj) 40 mg IVP DAILY [facility] Last Admin: 01/07/17 09:44 Dose: 40 mg Phenol/Menthol (Phenaseptic 1.4% Throat [place]) 0 ml MT Q2H PRN PRN Reason: Sore Throat Last Admin: 12/24/16 10:54 Dose: 1 spr - Labs Labs: 01/05/17 06:22 01/05/17 06:22 PT 12.6 SECONDS (9.7-12.2) H 12/21/16 11:39 INR 1.1 12/21/16 11:39 APTT 25 SECONDS (21-34) 12/21/16 11:39 - Constitutional Appears: No Acute Distress - Head Exam Head Exam: ATRAUMATIC, NORMAL INSPECTION, NORMOCEPHALIC - Eye Exam Eye Exam: EOMI, Normal appearance, PERRL Pupil Exam: NORMAL ACCOMODATION, PERRL - ENT Exam ENT Exam: Mucous Membranes Moist, Normal Exam - Respiratory Exam Respiratory Exam: Clear to Ausculation Bilateral, NORMAL BREATHING PATTERN - Cardiovascular Exam Cardiovascular Exam: REGULAR RHYTHM, +S1, +S2. absent: Murmur - GI/Abdominal Exam GI & Abdominal Exam: Soft, Normal Bowel Sounds. absent: Tenderness Assessment and Plan (1) Abdominal pain Status: Acute (2) Small bowel obstruction Status: Acute (3) Diabetes mellitus Status: Chronic (4) Hypertension Status: Chronic (5) Pneumonia Status: Acute
--- NOTE | 2017-01-07 14:22 | CP.PCM.PN ---
Objective - Vital Signs/Intake and Output Vital Signs (last 24 hours): Temp Pulse Resp BP Pulse Ox 97.7 F 92 H 27 H 144/66 100 01/07/17 08:00 01/07/17 08:00 01/07/17 08:00 01/07/17 08:00 01/07/17 08:00 Intake and Output: 01/07/17 01/07/17 06:59 18:59 Intake Total 750 50 Output Total 700 Balance 50 50 - Medications Medications: Current Medications Acetaminophen (Tylenol 325mg Tab) 650 mg PO Q6 PRN PRN Reason: Fever >100.4 F Last Admin: 01/07/17 11:49 Dose: 650 mg Albuterol/Ipratropium (Duoneb 3 Mg/0.5 Mg (3 Ml) Ud) 3 ml INH RQ6 [facility] Last Admin: 01/07/17 13:14 Dose: 3 ml Carbidopa/Levodopa (Sinemet 10/100) 1 tab PO TID [facility] Last Admin: 01/07/17 14:20 Dose: 1 tab Diltiazem HCl (Cardizem) 90 mg PO TID [facility] Last Admin: 01/07/17 14:20 Dose: 90 mg Tigecycline 50 mg/ Sodium (Chloride) 100 mls @ 100 mls/hr IVPB Q12H [facility] Last Admin: 01/07/17 13:50 Dose: 100 mls/hr Moxifloxacin HCl (Avelox Iv 400mg/250ml Ns) 400 mg in 250 mls @ 167 mls/hr IVPB Q24H [facility] Last Admin: 01/06/17 17:56 Dose: 167 mls/hr Vancomycin/Sodium Chloride (Vancocin) 1 gm in 200 mls @ 133 mls/hr IVPB Q12H [facility] Stop: 01/08/17 17:01 Last Admin: 01/07/17 05:01 Dose: 133 mls/hr Losartan Potassium (Cozaar) 100 mg PO DAILY [facility] Last Admin: 01/07/17 09:44 Dose: 100 mg Mupirocin (Bactroban 2% Nasal) 0.5 gm VIRAJ BID [facility] Last Admin: 01/07/17 09:44 Dose: 0.5 gm Neomycin/Polymyxin/Hydrocortisone (Cortisporin Otic Soln) 2 drop AU QID [facility] Last Admin: 01/07/17 14:20 Dose: 2 drop Nystatin (Nystop Topical Powder) 1 applic TOP BID [facility] Last Admin: 01/07/17 09:47 Dose: 1 g Pantoprazole Sodium (Protonix Inj) 40 mg IVP DAILY [facility] Last Admin: 01/07/17 09:44 Dose: 40 mg Phenol/Menthol (Phenaseptic 1.4% Throat [place]) 0 ml MT Q2H PRN PRN Reason: Sore Throat Last Admin: 12/24/16 10:54 Dose: 1 spr - Labs Labs: 01/05/17 06:22 01/05/17 06:22 PT 12.6 SECONDS (9.7-12.2) H 12/21/16 11:39 INR 1.1 12/21/16 11:39 APTT 25 SECONDS (21-34) 12/21/16 11:39 Assessment and Plan (1) Pneumonia Status: Acute (2) COPD exacerbation Status: Acute
[2017-01-07] MEDS: Moxifloxacin IV 400mg/250ml NS 400 MG/250 ML BAG IVPB SCH (16:25)
[2017-01-08] MEDS: Albuterol-Ipratrop 3 mg / 0.5 (3 ml) UD INH SCH ×2 (01:22→08:15)
[2017-01-08] MEDS: Vancomycin 1 gm/NS 200 ml 1 GM/200 ML BAG IVPB SCH ×2 (04:37→17:37)
[2017-01-08] MEDS: Mupirocin 2% Ointment (NASAL) NAS SCH ×2 (09:23→17:52)
[2017-01-08] MEDS: Neomycin/Polymyxin/Hydrocort Otic Soln BOTTLE AU SCH ×4 (09:25→22:52)
--- NOTE | 2017-01-08 13:35 | CP.PCM.PN ---
Subjective - Date & Time of Evaluation Date of Evaluation: 01/08/17 Time of Evaluation: 13:35 - Subjective Subjective: CHIEF COMPLAINTS TODAY : Patient transferred to [facility] afebrile, off BiPAP Comfortable ROS. HEENT : N. Resp : No SOB wheezing, cough Cardio : No CP, PND orthopnea GI : No abd. 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 Musculoskel : N Ext. : Pedal pulses intact, no edema or calf pain Derm : N Psych : N. PE. Pt. is alert awake in no distress. V.S As noted in the chart Head ,ear nose,throat and eyes : Normal. Neck : Supple with normal carotids. Lungs: BILATERAL RHONCHI. Heart : S1 & S2 normal . . No murmur. S4 + Abd : Soft non tender with normal bowel sounds.INCISION SITE CLEAN. Neuro : Moves all ext. with no localized deficit. Ext : +EDEMA LE with intact pulses. Neg. calf tenderness Derm : No rashes or decubitus ulcer. Radiology/Labs . 01/08/17 wbc 14.3 IMPROVING RENAL FUNCTIONS STABLE BLOOD CULTURES 01/02/17 -VE X 5 DAYS URINE CULTURE 12/29/16 -VE GROWTH MRSA +VE DETECTED 01/01/17 Objective - Vital Signs/Intake and Output Vital Signs (last 24 hours): Temp Pulse Resp BP Pulse Ox 99.7 F H 92 H 21 144/58 L 99 01/08/17 12:00 01/08/17 10:00 01/08/17 08:00 01/08/17 08:00 01/08/17 12:00 Intake and Output: 01/08/17 01/08/17 06:59 18:59 Intake Total 400 Balance 400 - Medications Medications: Current Medications Acetaminophen (Tylenol 650mg/20.3ml Solution Ud) 650 mg PO Q6 PRN PRN Reason: Fever >100.4 F Stop: 01/18/17 13:50 Carbidopa/Levodopa (Sinemet 10/100) 1 tab PO TID [facility] Last Admin: 01/08/17 13:23 Dose: 1 tab Diltiazem HCl (Cardizem) 90 mg PO TID [facility] Last Admin: 01/08/17 13:24 Dose: 90 mg Tigecycline 50 mg/ Sodium (Chloride) 100 mls @ 100 mls/hr IVPB Q12H [facility] Last Admin: 01/08/17 12:51 Dose: 100 mls/hr Moxifloxacin HCl (Avelox Iv 400mg/250ml Ns) 400 mg in 250 mls @ 167 mls/hr IVPB Q24H [facility] Last Admin: 01/07/17 16:25 Dose: 167 mls/hr Vancomycin/Sodium Chloride (Vancocin) 1 gm in 200 mls @ 133 mls/hr IVPB Q12H [facility] Stop: 01/08/17 17:01 Last Admin: 01/08/17 04:37 Dose: 133 mls/hr Losartan Potassium (Cozaar) 100 mg PO DAILY [facility] Last Admin: 01/08/17 09:23 Dose: 100 mg Mupirocin (Bactroban 2% Nasal) 0.5 gm VIRAJ BID [facility] Last Admin: 01/08/17 09:23 Dose: 0.5 gm Neomycin/Polymyxin/Hydrocortisone (Cortisporin Otic Soln) 2 drop AU QID [facility] Last Admin: 01/08/17 13:24 Dose: 2 drop Nystatin (Nystop Topical Powder) 1 applic TOP BID [facility] Last Admin: 01/08/17 09:24 Dose: 1 applic Pantoprazole Sodium (Protonix Inj) 40 mg IVP DAILY [facility] Last Admin: 01/08/17 09:23 Dose: 40 mg Phenol/Menthol (Phenaseptic 1.4% Throat [place]) 0 ml MT Q2H PRN PRN Reason: Sore Throat Last Admin: 12/24/16 10:54 Dose: 1 spr - Labs Labs: 01/05/17 06:22 01/05/17 06:22 PT 12.6 SECONDS (9.7-12.2) H 12/21/16 11:39 INR 1.1 12/21/16 11:39 APTT 25 SECONDS (21-34) 12/21/16 11:39 Assessment and Plan (1) Fever Status: Acute (2) Pneumonia Assessment & Plan: continue iv tygacil 50mg ivpb [id number]/27 on iv avelox 400mg iv od daily 01/02 continue iv vancomycin 1 gm ivpb q 12hrly.01/03- dc 01/08/17 QUANTIFERON GOLD TB TEST- INDETERMINATE. SPUTUM COULD NOT BE INDUCED PER RN. F/U CXR-in am . will discuss with pulmonary. Status: Suspected (3) Small bowel obstruction Status: Acute (4) COPD exacerbation Status: Acute (5) Diabetes mellitus Status: Chronic (6) Hypertension Status: Chronic (7) Anemia Status: Acute
[2017-01-08 15:37] LABS: BASO # 0.1 K/uL (0.0-0.2); BASO % 0.9 % (0.0-2.0); EOS # 0.1 K/uL (0.0-0.7); EOS % 0.4 % (0.0-4.0); HEMATOCRIT 28.4 % (34.0-47.0); LYMPH # 1.8 K/uL (1.0-4.3); LYMPH % 12.9 % (20.0-40.0); MEAN CELL VOLUME 83.3 fL (81.0-99.0); MEAN CORPUSCULAR HEMOGLOBIN 26.5 pg (27.0-31.0); MEAN CORPUSCULAR HGB CONC 31.8 g/dL (33.0-37.0); MEAN PLATELET VOLUME 7.8 fL (7.2-11.7); MONO # 0.9 K/uL (0.0-0.8); MONO % 6.2 % (0.0-10.0); RED CELL DISTRIBUTION WIDTH 17.2 % (11.5-14.5); WHITE BLOOD COUNT 14.3 K/uL (4.8-10.8)
[2017-01-08 15:48] LABS: CHLORIDE 114 mmol/L (98-107); POTASSIUM 4.1 mmol/L (3.6-5.2); SODIUM 147 mmol/L (132-148)
[2017-01-08 15:50] LABS: GFR AFRICAN-AMERICAN > 60
[2017-01-08 15:51] LABS: BLOOD UREA NITROGEN 26 mg/dL (7-17); CALCIUM 7.8 mg/dl (8.6-10.4); CARBON DIOXIDE 29 mmol/L (22-30); GLUCOSE,RANDOM 137 mg/dL (65-105)
[2017-01-08] MEDS: Moxifloxacin IV 400mg/250ml NS 400 MG/250 ML BAG IVPB SCH (17:36)
[2017-01-08] MEDS: Acetaminophen 650mg/20.3ml solution UD PO PRN (20:21)
--- NOTE | 2017-01-08 23:42 | CP.PCM.PN ---
Subjective - Date & Time of Evaluation Date of Evaluation: 01/08/17 Time of Evaluation: 21:00 - Subjective Subjective: Pt seen and examined, afebrile, is feeling better, off BIPAP on medical floor Objective - Vital Signs/Intake and Output Vital Signs (last 24 hours): Temp Pulse Resp BP Pulse Ox 99.4 F 84 22 139/62 96 01/08/17 15:00 01/08/17 15:00 01/08/17 15:00 01/08/17 15:00 01/08/17 15:00 Intake and Output: 01/08/17 01/09/17 18:59 06:59 Intake Total 500 850 Output Total 600 400 Balance -100 450 - Medications Medications: Current Medications Acetaminophen (Tylenol 650mg/20.3ml Solution Ud) 650 mg PO Q6 PRN PRN Reason: Fever >100.4 F Stop: 01/18/17 13:50 Last Admin: 01/08/17 20:21 Dose: 650 mg Carbidopa/Levodopa (Sinemet 10/100) 1 tab PO TID [facility] Last Admin: 01/08/17 18:49 Dose: 1 tab Diltiazem HCl (Cardizem) 90 mg PO TID [facility] Last Admin: 01/08/17 18:49 Dose: 90 mg Tigecycline 50 mg/ Sodium (Chloride) 100 mls @ 100 mls/hr IVPB Q12H [facility] Last Admin: 01/08/17 12:51 Dose: 100 mls/hr Moxifloxacin HCl (Avelox Iv 400mg/250ml Ns) 400 mg in 250 mls @ 167 mls/hr IVPB Q24H [facility] Last Admin: 01/08/17 17:36 Dose: 167 mls/hr Losartan Potassium (Cozaar) 100 mg PO DAILY [facility] Last Admin: 01/08/17 09:23 Dose: 100 mg Mupirocin (Bactroban 2% Nasal) 0.5 gm VIRAJ BID [facility] Last Admin: 01/08/17 17:52 Dose: 0.5 gm Neomycin/Polymyxin/Hydrocortisone (Cortisporin Otic Soln) 2 drop AU QID [facility] Last Admin: 01/08/17 22:52 Dose: Not Given Nystatin (Nystop Topical Powder) 1 applic TOP BID [facility] Last Admin: 01/08/17 18:57 Dose: 1 applic Pantoprazole Sodium (Protonix Inj) 40 mg IVP DAILY [facility] Last Admin: 01/08/17 09:23 Dose: 40 mg Phenol/Menthol (Phenaseptic 1.4% Throat [place]) 0 ml MT Q2H PRN PRN Reason: Sore Throat Last Admin: 12/24/16 10:54 Dose: 1 spr - Labs Labs: 01/08/17 15:34 01/08/17 15:34 PT 12.6 SECONDS (9.7-12.2) H 12/21/16 11:39 INR 1.1 12/21/16 11:39 APTT 25 SECONDS (21-34) 12/21/16 11:39 - Constitutional Appears: No Acute Distress, Chronically Ill - Head Exam Head Exam: ATRAUMATIC, NORMAL INSPECTION, NORMOCEPHALIC - Eye Exam Eye Exam: EOMI, Normal appearance, PERRL Pupil Exam: NORMAL ACCOMODATION, PERRL - ENT Exam ENT Exam: Mucous Membranes Moist, Normal Exam - Respiratory Exam Respiratory Exam: Clear to Ausculation Bilateral, NORMAL BREATHING PATTERN - Cardiovascular Exam Cardiovascular Exam: REGULAR RHYTHM, +S1, +S2. absent: Murmur - GI/Abdominal Exam GI & Abdominal Exam: Soft, Normal Bowel Sounds. absent: Tenderness Assessment and Plan (1) Abdominal pain Status: Acute (2) Small bowel obstruction Status: Acute (3) Diabetes mellitus Status: Chronic (4) Hypertension Status: Chronic (5) Pneumonia Status: Acute
[2017-01-09] MEDS: Acetaminophen 650mg/20.3ml solution UD PO PRN (02:23)
--- NOTE | 2017-01-09 08:27 | RAD ---
HISTORY: bilateral pneumonia . Technique: Single view portable semi erect @ 09:05. COMPARISON: No prior. FINDINGS: LUNGS: Stable left lower lobe infiltrate. PLEURA: No significant pleural effusion identified, no pneumothorax apparent. CARDIOVASCULAR: No radiographic findings to suggest acute or significant cardiovascular disease. PICC line in satisfactory position OSSEOUS STRUCTURES: No significant abnormalities. VISUALIZED UPPER ABDOMEN: Normal. OTHER FINDINGS: Stable position of nasogastric tube. IMPRESSION: No significant interval change compared to the prior examination(s).
[2017-01-09] MEDS: Mupirocin 2% Ointment (NASAL) NAS SCH ×2 (10:00→17:55)
[2017-01-09] MEDS: Neomycin/Polymyxin/Hydrocort Otic Soln BOTTLE AU SCH ×3 (10:00→17:54)
--- NOTE | 2017-01-09 12:14 | CARD ---
APPROVED REPORT EKG Measurement Heart [id number] <Conclusion> Normal sinus rhythm Left axis deviation Abnormal ECG
--- NOTE | 2017-01-09 13:15 | CP.PCM.PN ---
Subjective - Date & Time of Evaluation Date of Evaluation: 01/09/17 Time of Evaluation: 13:15 - Subjective Subjective: CHIEF COMPLAINTS TODAY : Patient transferred to [facility] afebrile, TMAX 99.0 ON NGT FEEDINGS Comfortable.AWAKE AND RESPONSIVE. DAUGHTER AT BEDSIDE.. PATIENT FOR SWALLOWING EVALUATION TODAY ROS. HEENT : N. Resp : No SOB wheezing, cough Cardio : No CP, PND orthopnea GI : No abd. 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 Musculoskel : N Ext. : Pedal pulses intact, no edema or calf pain Derm : N Psych : N. PE. Pt. is alert awake in no distress. V.S As noted in the chart Head ,ear nose,throat and eyes : Normal. Neck : Supple with normal carotids. Lungs: FEW RHONCHI BILATERALLY. Heart : S1 & S2 normal . . No murmur. S4 + Abd : Soft non tender with normal bowel sounds.INCISION SITE CLEAN. Neuro : Moves all ext. with no localized deficit. Ext : +EDEMA LE with intact pulses. Neg. calf tenderness Derm : No rashes or decubitus ulcer. Radiology/Labs . 01/08/17 wbc 14.3 IMPROVING RENAL FUNCTIONS STABLE BLOOD CULTURES 01/02/17 -VE X 5 DAYS URINE CULTURE 12/29/16 -VE GROWTH MRSA +VE DETECTED 01/01/17 Objective - Vital Signs/Intake and Output Vital Signs (last 24 hours): Temp Pulse Resp BP Pulse Ox 99 F 76 20 143/66 98 01/09/17 08:00 01/09/17 08:00 01/09/17 08:00 01/09/17 08:00 01/09/17 08:00 Intake and Output: 01/09/17 01/09/17 06:59 18:59 Intake Total 1350 500 Output Total 900 500 Balance 450 0 - Medications Medications: Current Medications Acetaminophen (Tylenol 650mg/20.3ml Solution Ud) 650 mg PO Q6 PRN PRN Reason: Fever >100.4 F Stop: 01/18/17 13:50 Last Admin: 01/09/17 02:23 Dose: 650 mg Carbidopa/Levodopa (Sinemet 10/100) 1 tab PO TID [facility] Last Admin: 01/08/17 18:49 Dose: 1 tab Diltiazem HCl (Cardizem) 90 mg PO TID [facility] Last Admin: 01/08/17 18:49 Dose: 90 mg Tigecycline 50 mg/ Sodium (Chloride) 100 mls @ 100 mls/hr IVPB Q12H [facility] Last Admin: 01/09/17 00:14 Dose: 100 mls/hr Moxifloxacin HCl (Avelox Iv 400mg/250ml Ns) 400 mg in 250 mls @ 167 mls/hr IVPB Q24H [facility] Last Admin: 01/08/17 17:36 Dose: 167 mls/hr Losartan Potassium (Cozaar) 100 mg PO DAILY [facility] Last Admin: 01/08/17 09:23 Dose: 100 mg Mupirocin (Bactroban 2% Nasal) 0.5 gm VIRAJ BID [facility] Last Admin: 01/08/17 17:52 Dose: 0.5 gm Neomycin/Polymyxin/Hydrocortisone (Cortisporin Otic Soln) 2 drop AU QID [facility] Last Admin: 01/08/17 22:52 Dose: Not Given Nystatin (Nystop Topical Powder) 1 applic TOP BID [facility] Last Admin: 01/08/17 18:57 Dose: 1 applic Pantoprazole Sodium (Protonix Inj) 40 mg IVP DAILY [facility] Last Admin: 01/08/17 09:23 Dose: 40 mg Phenol/Menthol (Phenaseptic 1.4% Throat [place]) 0 ml MT Q2H PRN PRN Reason: Sore Throat Last Admin: 12/24/16 10:54 Dose: 1 spr - Labs Labs: 01/08/17 15:34 01/08/17 15:34 PT 12.6 SECONDS (9.7-12.2) H 12/21/16 11:39 INR 1.1 12/21/16 11:39 APTT 25 SECONDS (21-34) 12/21/16 11:39 Assessment and Plan (1) Fever Status: Acute (2) Pneumonia Assessment & Plan: Continue iv tygacil 50mg ivpb [id number]/27 X 7 DAYS MORE on iv avelox 400mg iv od daily 01/02 X 7 DAYS PULMONARY TOILET. F/U CXR TO CLEARING Status: Suspected (3) Small bowel obstruction Status: Acute (4) COPD exacerbation Status: Acute (5) Diabetes mellitus Status: Chronic (6) Hypertension Status: Chronic (7) Anemia Status: Acute
[2017-01-09] MEDS: Moxifloxacin IV 400mg/250ml NS 400 MG/250 ML BAG IVPB SCH (17:53)
--- NOTE | 2017-01-09 22:52 | CP.PCM.PN ---
Subjective - Date & Time of Evaluation Date of Evaluation: 01/09/17 Time of Evaluation: 09:45 - Subjective Subjective: Pt seen and examined, post op pain is there, pt looks weak and lethargic, arun any chest pian, shortness of breath Objective - Vital Signs/Intake and Output Vital Signs (last 24 hours): Temp Pulse Resp BP Pulse Ox 98.4 F 85 20 145/68 96 01/09/17 17:18 01/09/17 17:18 01/09/17 17:18 01/09/17 17:18 01/09/17 17:18 Intake and Output: 01/09/17 01/10/17 18:59 06:59 Intake Total 500 750 Output Total 500 1500 Balance 0 -750 - Medications Medications: Current Medications Acetaminophen (Tylenol 650mg/20.3ml Solution Ud) 650 mg PO Q6 PRN PRN Reason: Fever >100.4 F Stop: 01/18/17 13:50 Last Admin: 01/09/17 02:23 Dose: 650 mg Carbidopa/Levodopa (Sinemet 10/100) 1 tab PO TID [facility] Last Admin: 01/09/17 17:55 Dose: 1 tab Diltiazem HCl (Cardizem) 90 mg PO TID [facility] Last Admin: 01/09/17 17:55 Dose: 90 mg Tigecycline 50 mg/ Sodium (Chloride) 100 mls @ 100 mls/hr IVPB Q12H [facility] Last Admin: 01/09/17 13:00 Dose: 100 mls/hr Moxifloxacin HCl (Avelox Iv 400mg/250ml Ns) 400 mg in 250 mls @ 167 mls/hr IVPB Q24H [facility] Last Admin: 01/09/17 17:53 Dose: 167 mls/hr Losartan Potassium (Cozaar) 100 mg PO DAILY [facility] Last Admin: 01/09/17 10:00 Dose: 100 mg Mupirocin (Bactroban 2% Nasal) 0.5 gm VIRAJ BID [facility] Last Admin: 01/09/17 17:55 Dose: 0.5 gm Nystatin (Nystop Topical Powder) 1 applic TOP BID [facility] Last Admin: 01/09/17 17:54 Dose: 1 applic Pantoprazole Sodium (Protonix Inj) 40 mg IVP DAILY [facility] Last Admin: 01/09/17 10:00 Dose: 40 mg Phenol/Menthol (Phenaseptic 1.4% Throat [place]) 0 ml MT Q2H PRN PRN Reason: Sore Throat Last Admin: 12/24/16 10:54 Dose: 1 spr - Labs Labs: 01/08/17 15:34 01/08/17 15:34 PT 12.6 SECONDS (9.7-12.2) H 12/21/16 11:39 INR 1.1 12/21/16 11:39 APTT 25 SECONDS (21-34) 12/21/16 11:39 Assessment and Plan (1) Abdominal pain Status: Acute (2) Small bowel obstruction Status: Acute (3) Diabetes mellitus Status: Chronic (4) Hypertension Status: Chronic (5) Pneumonia Status: Acute
[2017-01-10] MEDS: Mupirocin 2% Ointment (NASAL) NAS SCH ×2 (11:53→17:14)
--- NOTE | 2017-01-10 14:19 | CP.PCM.PN ---
Subjective - Date & Time of Evaluation Date of Evaluation: 01/10/17 Time of Evaluation: 14:19 - Subjective Subjective: AFEBRILE, AA ON NGT FEEDINGS. OUT OF BED ON CARDIAC CHAIR FAILED SWALLOWING EVAL PER LOCOMOTIVE SUPERVISOR MS MCCLAIN fAMILY REQUESTING ENT EVALUATION. REFUSING PEG TUBE Objective - Vital Signs/Intake and Output Vital Signs (last 24 hours): Temp Pulse Resp BP Pulse Ox 98.3 F 89 20 145/73 97 01/10/17 08:00 01/10/17 08:00 01/10/17 08:00 01/10/17 08:00 01/10/17 08:00 Intake and Output: 01/10/17 01/10/17 06:59 18:59 Intake Total 1350 Output Total 2100 Balance -750 - Medications Medications: Current Medications Acetaminophen (Tylenol 650mg/20.3ml Solution Ud) 650 mg PO Q6 PRN PRN Reason: Fever >100.4 F Stop: 01/18/17 13:50 Last Admin: 01/09/17 02:23 Dose: 650 mg Carbidopa/Levodopa (Sinemet 10/100) 1 tab PO TID [facility] Last Admin: 01/10/17 11:53 Dose: 1 tab Diltiazem HCl (Cardizem) 90 mg PO TID [facility] Last Admin: 01/10/17 11:54 Dose: 90 mg Tigecycline 50 mg/ Sodium (Chloride) 100 mls @ 100 mls/hr IVPB Q12H [facility] Last Admin: 01/10/17 11:56 Dose: 100 mls/hr Moxifloxacin HCl (Avelox Iv 400mg/250ml Ns) 400 mg in 250 mls @ 167 mls/hr IVPB Q24H [facility] Last Admin: 01/09/17 17:53 Dose: 167 mls/hr Losartan Potassium (Cozaar) 100 mg PO DAILY [facility] Last Admin: 01/10/17 11:55 Dose: 100 mg Mupirocin (Bactroban 2% Nasal) 0.5 gm VIRAJ BID [facility] Last Admin: 01/10/17 11:53 Dose: 0.5 gm Nystatin (Nystop Topical Powder) 1 applic TOP BID [facility] Last Admin: 01/10/17 11:55 Dose: 1 applic Pantoprazole Sodium (Protonix Inj) 40 mg IVP DAILY [facility] Last Admin: 01/10/17 11:52 Dose: 40 mg Phenol/Menthol (Phenaseptic 1.4% Throat [place]) 0 ml MT Q2H PRN PRN Reason: Sore Throat Last Admin: 12/24/16 10:54 Dose: 1 spr - Labs Labs: 01/08/17 15:34 01/08/17 15:34 PT 12.6 SECONDS (9.7-12.2) H 12/21/16 11:39 INR 1.1 12/21/16 11:39 APTT 25 SECONDS (21-34) 12/21/16 11:39 - Constitutional Appears: No Acute Distress - Head Exam Head Exam: NORMAL INSPECTION - Eye Exam Eye Exam: EOMI, PERRL - ENT Exam ENT Exam: Mucous Membranes Moist, Normal Exam - Neck Exam Neck Exam: Normal Inspection - Respiratory Exam Respiratory Exam: Decreased Breath Sounds (BASES) - Cardiovascular Exam Cardiovascular Exam: REGULAR RHYTHM, +S1, +S2 - GI/Abdominal Exam GI & Abdominal Exam: Soft, Normal Bowel Sounds (SUTURE LINE OSEI IN POSITION. ). absent: Tenderness - Extremities Exam Extremities Exam: Pedal Edema. absent: Calf Tenderness - Neurological Exam Neurological Exam: Awake, Oriented x3, Reflexes Normal - Psychiatric Exam Psychiatric exam: Normal Mood - Skin Skin Exam: Normal Color, Warm Assessment and Plan (1) Fever Assessment & Plan: FEVER IMPROVED. wbc COUNT IMPROVING. wbc 13.3. Status: Acute (2) Pneumonia Assessment & Plan: Continue iv tygacil 50mg ivpb [id number]/27 X TOTAL OF 21 DAYS. on iv avelox 400mg iv od daily 01/02 X TOTAL OF 14 DAYS PULMONARY TOILET. CXR 01/08/17 -STABLE LLL INFILTRATE PT FOR ENT EVAL PT ASPIRATING AND FAILED SWALLOW EVAL. Status: Suspected (3) Small bowel obstruction Status: Acute (4) COPD exacerbation Status: Acute (5) Diabetes mellitus Status: Chronic (6) Hypertension Status: Chronic (7) Anemia Status: Acute
[2017-01-10 16:31] LABS: HEMATOCRIT 27.9 % (34.0-47.0); MEAN CELL VOLUME 82.2 fL (81.0-99.0); MEAN CORPUSCULAR HEMOGLOBIN 26.4 pg (27.0-31.0); MEAN CORPUSCULAR HGB CONC 32.1 g/dL (33.0-37.0); MEAN PLATELET VOLUME 8.1 fL (7.2-11.7); RED CELL DISTRIBUTION WIDTH 17.5 % (11.5-14.5); WHITE BLOOD COUNT 13.3 K/uL (4.8-10.8)
[2017-01-10 16:40] LABS: CHLORIDE 113 mmol/L (98-107); POTASSIUM 4.1 mmol/L (3.6-5.2); SODIUM 147 mmol/L (132-148)
[2017-01-10 16:42] LABS: GFR AFRICAN-AMERICAN > 60
[2017-01-10 16:43] LABS: BLOOD UREA NITROGEN 27 mg/dL (7-17); CARBON DIOXIDE 29 mmol/L (22-30); GLUCOSE,RANDOM 95 mg/dL (65-105)
[2017-01-10] MEDS: Moxifloxacin IV 400mg/250ml NS 400 MG/250 ML BAG IVPB SCH (17:14)
--- NOTE | 2017-01-11 07:29 | RAD ---
HISTORY: asssess placement for NGT COMPARISON: 01/08/2017 FINDINGS: LUNGS: Lines and tubes stable position. Moderate venous congestion. More confluent opacity in the medial right mid to lower lung zone. Small left pleural effusion. Bibasilar consolidation and/or atelectasis. Upper lobe granulomatous changes. Punctate radiopaque density seen at the right lung apex possibly screen film artifact. PLEURA: As above. CARDIOVASCULAR: Calcification at the aortic knob. Mild cardiomegaly. OSSEOUS STRUCTURES: Degenerative changes in the spine and shoulders. VISUALIZED UPPER ABDOMEN: Normal. OTHER FINDINGS: None. IMPRESSION: Lines and tubes stable position. Moderate venous congestion. More confluent opacity in the medial right mid to lower lung zone. Small left pleural effusion. Bibasilar consolidation and/or atelectasis. Upper lobe granulomatous changes. Punctate radiopaque density seen at the right lung apex possibly screen film artifact.
[2017-01-11 07:31] LABS: BASO # 0.1 K/uL (0.0-0.2); BASO % 0.5 % (0.0-2.0); EOS # 0.1 K/uL (0.0-0.7); EOS % 0.6 % (0.0-4.0); HEMATOCRIT 24.7 % (34.0-47.0); LYMPH # 1.9 K/uL (1.0-4.3); LYMPH % 16.4 % (20.0-40.0); MEAN CELL VOLUME 82.5 fL (81.0-99.0); MEAN CORPUSCULAR HEMOGLOBIN 26.5 pg (27.0-31.0); MEAN CORPUSCULAR HGB CONC 32.1 g/dL (33.0-37.0); MEAN PLATELET VOLUME 8.3 fL (7.2-11.7); MONO # 0.8 K/uL (0.0-0.8); MONO % 6.4 % (0.0-10.0); NRBC % 0.1 % (0.0-2.0); RED CELL DISTRIBUTION WIDTH 17.4 % (11.5-14.5); WHITE BLOOD COUNT 11.8 K/uL (4.8-10.8)
[2017-01-11 07:32] LABS: CHLORIDE 114 mmol/L (98-107); POTASSIUM 3.9 mmol/L (3.6-5.2); SODIUM 147 mmol/L (132-148)
[2017-01-11 07:35] LABS: BLOOD UREA NITROGEN 27 mg/dL (7-17); CARBON DIOXIDE 25 mmol/L (22-30); GFR AFRICAN-AMERICAN > 60; GLUCOSE,RANDOM 116 mg/dL (65-105)
[2017-01-11 07:36] LABS: CALCIUM 7.7 mg/dl (8.6-10.4)
--- NOTE | 2017-01-11 08:48 | OP ---
PROCEDURE DATE: 01/11/2017 PREOPERATIVE DIAGNOSIS: Dysphagia. POSTOPERATIVE DIAGNOSIS: Dysphagia. PROCEDURE: Flexible laryngoscopy. DESCRIPTION OF PROCEDURE: The patient was placed in a seated position. The flexible laryngoscope wa s inserted in the nasal cavity, passed through the nasopharynx. The patient could not tolerate the p rocedure well; therefore, the scope was removed. However, there were no masses and no lesions noted in the nasopharynx. The scope was inserted into the oral cavity and passed through the oropharynx an d hypopharynx. The pharyngeal sandy, base of tongue, vallecula, epiglottis, AE folds, false cords, t rue cords, piriform sinuses, arytenoids were brought to view. There was somewhat of a limited exam s econdary to the NG tube. However, no masses or lesions were noted. No erythema or edema was noted. Vocal cords were noted to be mobile bilaterally. The patient was noted to have a decreased gag refl ex. Therefore, the flexible laryngoscopy was able to be done through the mouth. The scope was remov ed. The patient tolerated the procedure well. I recommend a neurology consult since I believe the patient has a neuromuscular disorder, and recomme nd a possible PEG since she failed dysphagia eval. Aron Moss MD cc: [id number] TT: 01/11/2017 08:47:45 ada
[2017-01-11] MEDS: Mupirocin 2% Ointment (NASAL) NAS SCH ×2 (10:38→17:48)
[2017-01-11] MEDS: Acetaminophen 650mg/20.3ml solution UD PO PRN ×2 (10:38→14:44)
[2017-01-11 11:34] LABS: BASO # 0.1 K/uL (0.0-0.2); BASO % 0.5 % (0.0-2.0); EOS # 0.1 K/uL (0.0-0.7); EOS % 0.7 % (0.0-4.0); HEMATOCRIT 27.2 % (34.0-47.0); LYMPH # 2.1 K/uL (1.0-4.3); MEAN CELL VOLUME 82.8 fL (81.0-99.0); MEAN CORPUSCULAR HGB CONC 31.4 g/dL (33.0-37.0); MEAN PLATELET VOLUME 8.2 fL (7.2-11.7); MONO # 0.8 K/uL (0.0-0.8); MONO % 6.7 % (0.0-10.0); RED CELL DISTRIBUTION WIDTH 17.2 % (11.5-14.5); WHITE BLOOD COUNT 12.1 K/uL (4.8-10.8)
--- NOTE | 2017-01-11 13:59 | CP.PCM.PN ---
Subjective - Date & Time of Evaluation Date of Evaluation: 01/11/17 Time of Evaluation: 13:59 - Subjective Subjective: AFEBRILE, AA ON NGT FEEDINGS. OUT OF BED ON CARDIAC CHAIR WEAK FAILED SWALLOWING EVAL PER LIFE TRAINER MS MCCLAIN SEEN BY ENT . FAMILY NOW AGREEABLE FOR PEG . HAVE SOME CONCERNS . DISCUSSED WITH FAMILY, GI TO FOLLOW FOR PEG Objective - Vital Signs/Intake and Output Vital Signs (last 24 hours): Temp Pulse Resp BP Pulse Ox 99 F 84 20 137/71 99 01/11/17 08:00 01/11/17 08:00 01/11/17 08:00 01/11/17 08:00 01/11/17 08:00 Intake and Output: 01/11/17 01/11/17 06:59 18:59 Intake Total 1350 Output Total 800 Balance 550 - Medications Medications: Current Medications Acetaminophen (Tylenol 650mg/20.3ml Solution Ud) 650 mg PO Q6 PRN PRN Reason: Fever >100.4 F Stop: 01/18/17 13:50 Last Admin: 01/11/17 10:38 Dose: 650 mg Carbidopa/Levodopa (Sinemet ) 1 tab PO TID [facility] Last Admin: 01/11/17 10:38 Dose: 1 tab Diltiazem HCl (Cardizem) 90 mg PO TID [facility] Last Admin: 01/11/17 10:38 Dose: 90 mg Tigecycline 50 mg/ Sodium (Chloride) 100 mls @ 100 mls/hr IVPB Q12H [facility] Last Admin: 01/11/17 00:47 Dose: 100 mls/hr Moxifloxacin HCl (Avelox Iv 400mg/250ml Ns) 400 mg in 250 mls @ 167 mls/hr IVPB Q24H [facility] Last Admin: 01/10/17 17:14 Dose: 167 mls/hr Losartan Potassium (Cozaar) 100 mg PO DAILY [facility] Last Admin: 01/11/17 10:38 Dose: 100 mg Mupirocin (Bactroban 2% Nasal) 0.5 gm VIRAJ BID [facility] Last Admin: 01/11/17 10:38 Dose: 0.5 gm Nystatin (Nystop Topical Powder) 1 applic TOP BID [facility] Last Admin: 01/10/17 17:15 Dose: 1 applic Pantoprazole Sodium (Protonix Inj) 40 mg IVP DAILY [facility] Last Admin: 01/11/17 10:38 Dose: 40 mg Phenol/Menthol (Phenaseptic 1.4% Throat [place]) 0 ml MT Q2H PRN PRN Reason: Sore Throat Last Admin: 12/24/16 10:54 Dose: 1 spr - Labs Labs: 01/11/17 11:28 01/11/17 07:15 PT 12.6 SECONDS (9.7-12.2) H 12/21/16 11:39 INR 1.1 12/21/16 11:39 APTT 25 SECONDS (21-34) 12/21/16 11:39 - Constitutional Appears: No Acute Distress - Head Exam Head Exam: NORMAL INSPECTION - Eye Exam Eye Exam: EOMI, PERRL - ENT Exam ENT Exam: Mucous Membranes Moist (ON NGT FEEDINGS.) - Neck Exam Neck Exam: Normal Inspection - Respiratory Exam Respiratory Exam: Rhonchi (BILATERAL RHONCHI RT>L) - GI/Abdominal Exam GI & Abdominal Exam: Soft, Normal Bowel Sounds (SUTURE LINE HEALING OSEI IN PLACE.) - Extremities Exam Extremities Exam: Pedal Edema. absent: Calf Tenderness - Neurological Exam Neurological Exam: Awake, Oriented x3 - Psychiatric Exam Psychiatric exam: Normal Mood - Skin Skin Exam: Normal Color, Warm Assessment and Plan (1) Fever Assessment & Plan: FEVER IMPROVED. wbc COUNT IMPROVING. wbc 12.3 Status: Acute (2) Pneumonia Assessment & Plan: Continue iv tygacil 50mg ivpb [id number].12/27 X TOTAL OF 21 DAYS. on iv avelox 400mg iv od daily 01/02 X TOTAL OF 14 DAYS PULMONARY TOILET. CXR 01/08/17 -STABLE LLL INFILTRATE CXR 01/11/17 MORE CONFLUENT INFILTRATES RT/LT ?ASPIRATION Status: Suspected (3) Small bowel obstruction Status: Acute (4) COPD exacerbation Status: Acute (5) Diabetes mellitus Status: Chronic (6) Hypertension Status: Chronic (7) Anemia Status: Acute
--- NOTE | 2017-01-11 14:00 | CP.PCM.PN ---
Subjective - Date & Time of Evaluation Date of Evaluation: 01/10/17 Time of Evaluation: 21:45 - Subjective Subjective: Pt seen and examined.vitals noted, clinically no change Objective - Vital Signs/Intake and Output Vital Signs (last 24 hours): Temp Pulse Resp BP Pulse Ox 99 F 84 20 137/71 99 01/11/17 08:00 01/11/17 08:00 01/11/17 08:00 01/11/17 08:00 01/11/17 08:00 Intake and Output: 01/11/17 01/11/17 06:59 18:59 Intake Total 1350 Output Total 800 Balance 550 - Medications Medications: Current Medications Acetaminophen (Tylenol 650mg/20.3ml Solution Ud) 650 mg PO Q6 PRN PRN Reason: Fever >100.4 F Stop: 01/18/17 13:50 Last Admin: 01/11/17 10:38 Dose: 650 mg Carbidopa/Levodopa (Sinemet 10/100) 1 tab PO TID [facility] Last Admin: 01/11/17 10:38 Dose: 1 tab Diltiazem HCl (Cardizem) 90 mg PO TID [facility] Last Admin: 01/11/17 10:38 Dose: 90 mg Tigecycline 50 mg/ Sodium (Chloride) 100 mls @ 100 mls/hr IVPB Q12H [facility] Last Admin: 01/11/17 00:47 Dose: 100 mls/hr Moxifloxacin HCl (Avelox Iv 400mg/250ml Ns) 400 mg in 250 mls @ 167 mls/hr IVPB Q24H [facility] Last Admin: 01/10/17 17:14 Dose: 167 mls/hr Losartan Potassium (Cozaar) 100 mg PO DAILY [facility] Last Admin: 01/11/17 10:38 Dose: 100 mg Mupirocin (Bactroban 2% Nasal) 0.5 gm VIRAJ BID [facility] Last Admin: 01/11/17 10:38 Dose: 0.5 gm Nystatin (Nystop Topical Powder) 1 applic TOP BID [facility] Last Admin: 01/10/17 17:15 Dose: 1 applic Pantoprazole Sodium (Protonix Inj) 40 mg IVP DAILY [facility] Last Admin: 01/11/17 10:38 Dose: 40 mg Phenol/Menthol (Phenaseptic 1.4% Throat [place]) 0 ml MT Q2H PRN PRN Reason: Sore Throat Last Admin: 12/24/16 10:54 Dose: 1 spr - Labs Labs: 01/11/17 11:28 01/11/17 07:15 PT 12.6 SECONDS (9.7-12.2) H 12/21/16 11:39 INR 1.1 12/21/16 11:39 APTT 25 SECONDS (21-34) 12/21/16 11:39 Assessment and Plan (1) Abdominal pain Status: Acute (2) Small bowel obstruction Status: Acute (3) Diabetes mellitus Status: Chronic (4) Hypertension Status: Chronic (5) Pneumonia Status: Acute
[2017-01-11] MEDS: Moxifloxacin IV 400mg/250ml NS 400 MG/250 ML BAG IVPB SCH (17:47)
--- NOTE | 2017-01-11 23:10 | CP.PCM.PN ---
Subjective - Date & Time of Evaluation Date of Evaluation: 01/11/17 Time of Evaluation: 21:00 - Subjective Subjective: Pt is more awake, more alert, afebrile, congested at times,pnemonia improved,is for another swallowing eval tommorow, peg placemnet sedation is high risk for her Objective - Vital Signs/Intake and Output Vital Signs (last 24 hours): Temp Pulse Resp BP Pulse Ox 97.4 F L 78 21 139/59 L 97 01/11/17 16:15 01/11/17 16:15 01/11/17 16:15 01/11/17 16:15 01/11/17 16:15 Intake and Output: 01/11/17 01/12/17 18:59 06:59 Intake Total 500 Balance 500 - Medications Medications: Current Medications Acetaminophen (Tylenol 650mg/20.3ml Solution Ud) 650 mg PO Q6 PRN PRN Reason: Fever >100.4 F Stop: 01/18/17 13:50 Last Admin: 01/11/17 14:44 Dose: 650 mg Carbidopa/Levodopa (Sinemet 10/100) 1 tab PO TID [facility] Last Admin: 01/11/17 18:13 Dose: 1 tab Diltiazem HCl (Cardizem) 90 mg PO TID [facility] Last Admin: 01/11/17 18:13 Dose: 90 mg Tigecycline 50 mg/ Sodium (Chloride) 100 mls @ 100 mls/hr IVPB Q12H [facility] Last Admin: 01/11/17 14:44 Dose: 100 mls/hr Moxifloxacin HCl (Avelox Iv 400mg/250ml Ns) 400 mg in 250 mls @ 167 mls/hr IVPB Q24H [facility] Last Admin: 01/11/17 17:47 Dose: 167 mls/hr Losartan Potassium (Cozaar) 100 mg PO DAILY [facility] Last Admin: 01/11/17 10:38 Dose: 100 mg Mupirocin (Bactroban 2% Nasal) 0.5 gm VIRAJ BID [facility] Last Admin: 01/11/17 17:48 Dose: 0.5 gm Nystatin (Nystop Topical Powder) 1 applic TOP BID [facility] Last Admin: 01/11/17 17:47 Dose: 1 applic Pantoprazole Sodium (Protonix Inj) 40 mg IVP DAILY [facility] Last Admin: 01/11/17 10:38 Dose: 40 mg Phenol/Menthol (Phenaseptic 1.4% Throat [place]) 0 ml MT Q2H PRN PRN Reason: Sore Throat Last Admin: 12/24/16 10:54 Dose: 1 spr - Labs Labs: 01/11/17 11:28 01/11/17 07:15 PT 12.6 SECONDS (9.7-12.2) H 12/21/16 11:39 INR 1.1 12/21/16 11:39 APTT 25 SECONDS (21-34) 12/21/16 11:39 - Constitutional Appears: No Acute Distress, Chronically Ill - Eye Exam Eye Exam: EOMI, Normal appearance, PERRL Pupil Exam: NORMAL ACCOMODATION, PERRL - ENT Exam ENT Exam: Mucous Membranes Moist - Respiratory Exam Respiratory Exam: Clear to Ausculation Bilateral, NORMAL BREATHING PATTERN - Cardiovascular Exam Cardiovascular Exam: REGULAR RHYTHM, +S1, +S2. absent: Murmur - GI/Abdominal Exam GI & Abdominal Exam: Soft, Normal Bowel Sounds. absent: Tenderness Assessment and Plan (1) Abdominal pain Status: Acute (2) Small bowel obstruction Status: Acute (3) Diabetes mellitus Status: Chronic (4) Hypertension Status: Chronic (5) Pneumonia Status: Acute
[2017-01-12] MEDS: Acetaminophen 650mg/20.3ml solution UD PO PRN ×2 (00:53→16:16)
[2017-01-12] MEDS: Mupirocin 2% Ointment (NASAL) NAS SCH ×2 (10:35→18:35)
[2017-01-12] MEDS: Moxifloxacin IV 400mg/250ml NS 400 MG/250 ML BAG IVPB SCH (16:17)
--- NOTE | 2017-01-12 18:05 | CP.PCM.PN ---
Subjective - Date & Time of Evaluation Date of Evaluation: 01/12/17 Time of Evaluation: 18:05 - Subjective Subjective: WEAK FAILED SWALLOWING EVAL PER UNIT TECHNICIAN MS MCCLAIN SEEN BY ENT . S/P LARYNGOSCOPY. FINDINGS NOTED. PT FOR NEUROLOGY EVALUATION RECOMENDED BY ENT Objective - Vital Signs/Intake and Output Vital Signs (last 24 hours): Temp Pulse Resp BP Pulse Ox 99 F 87 21 166/64 H 98 01/12/17 15:00 01/12/17 15:00 01/12/17 15:00 01/12/17 15:00 01/12/17 15:00 Intake and Output: 01/12/17 01/12/17 06:59 18:59 Intake Total 850 700 Output Total 400 650 Balance 450 50 - Medications Medications: Current Medications Acetaminophen (Tylenol 650mg/20.3ml Solution Ud) 650 mg PO Q6 PRN PRN Reason: Fever >100.4 F Stop: 01/18/17 13:50 Last Admin: 01/12/17 16:16 Dose: 650 mg Carbidopa/Levodopa (Sinemet 10/100) [address] [facility] Last Admin: 01/12/17 14:11 Dose: 1 tab Diltiazem HCl (Cardizem) [address] [facility] Last Admin: 01/12/17 14:11 Dose: 90 mg Tigecycline 50 mg/ Sodium (Chloride) 100 mls @ 100 mls/hr IVPB Q12H [facility] Last Admin: 01/12/17 13:08 Dose: 100 mls/hr Moxifloxacin HCl (Avelox Iv 400mg/250ml Ns) 400 mg in 250 mls @ 167 mls/hr IVPB Q24H [facility] Last Admin: 01/12/17 16:17 Dose: 167 mls/hr Lidocaine (Lidoderm) [address] [facility] Losartan Potassium (Cozaar) [address] [facility] Last Admin: 01/12/17 10:34 Dose: 100 mg Mupirocin (Bactroban 2% Nasal) 0.[address] [facility] Last Admin: 01/12/17 10:35 Dose: 0.5 gm Nystatin (Nystop Topical Powder) [address] [facility] Last Admin: 01/12/17 10:37 Dose: 1 applic Pantoprazole Sodium (Protonix Inj) [address] [facility] Last Admin: 01/12/17 10:35 Dose: 40 mg Phenol/Menthol (Phenaseptic 1.4% Throat [place]) 0 ml MT Q2H PRN PRN Reason: Sore Throat Last Admin: 12/24/16 10:54 Dose: 1 spr - Labs Labs: 01/11/17 11:28 01/11/17 07:15 PT 12.6 SECONDS (9.7-12.2) H 12/21/16 11:39 INR 1.1 12/21/16 11:39 APTT 25 SECONDS (21-34) 12/21/16 11:39 - Constitutional Appears: No Acute Distress - Head Exam Head Exam: NORMAL INSPECTION - Eye Exam Eye Exam: PERRL - ENT Exam ENT Exam: Mucous Membranes Moist (+VE NGT FEEDINGS) - Neck Exam Neck Exam: Normal Inspection - Respiratory Exam Respiratory Exam: Prolonged Expiratory Phase (B/L LUNGS), Rhonchi - Cardiovascular Exam Cardiovascular Exam: REGULAR RHYTHM, +S1, +S2 - GI/Abdominal Exam GI & Abdominal Exam: Soft, Normal Bowel Sounds (SUTURE LINE HEALING) - Extremities Exam Extremities Exam: Pedal Edema. absent: Calf Tenderness - Neurological Exam Neurological Exam: Awake (DROWSY AT TIMES.) - Psychiatric Exam Psychiatric exam: Flat Affect - Skin Skin Exam: Normal Color Assessment and Plan (1) Fever Status: Acute (2) Pneumonia Assessment & Plan: ontinue iv tygacil 50mg ivpb v96pide.12/27 X TOTAL OF 21 DAYS. on iv avelox 400mg iv od daily 01/02 X TOTAL OF 14 DAYS PULMONARY TOILET. CXR 01/08/17 -STABLE LLL INFILTRATE CXR 01/11/17 MORE CONFLUENT INFILTRATES RT/LT ?ASPIRATION Status: Suspected (3) Small bowel obstruction Status: Acute (4) COPD exacerbation Status: Acute (5) Diabetes mellitus Status: Chronic (6) Hypertension Status: Chronic (7) Anemia Status: Acute
[2017-01-12] MEDS: Lidocaine 5% Patch TD SCH (18:36)
[2017-01-12] MEDS: guaiFENesin 200 mg/10 ml Syrup UD NG SCH (22:51)
--- NOTE | 2017-01-13 01:03 | CP.PCM.PN ---
Subjective - Date & Time of Evaluation Date of Evaluation: 01/12/17 Time of Evaluation: 21:00 - Subjective Subjective: pt seen and examined, is more alert and awake, but failed swalowing eval, in for E.n.T consult Objective - Vital Signs/Intake and Output Vital Signs (last 24 hours): Temp Pulse Resp BP Pulse Ox 99.5 F 83 20 161/69 H 95 01/13/17 00:00 01/13/17 00:00 01/13/17 00:00 01/13/17 00:00 01/13/17 00:00 Intake and Output: 01/12/17 01/13/17 18:59 06:59 Intake Total 700 800 Output Total 650 500 Balance 50 300 - Medications Medications: Current Medications Acetaminophen (Tylenol 650mg/20.3ml Solution Ud) 650 mg PO Q6 PRN PRN Reason: Fever >100.4 F Stop: 01/18/17 13:50 Last Admin: 01/12/17 16:16 Dose: 650 mg Albuterol/Ipratropium (Duoneb 3 Mg/0.5 Mg (3 Ml) Ud) 3 ml INH RQ6 [facility] Carbidopa/Levodopa (Sinemet 10/100) 1 tab PO TID [facility] Last Admin: 01/12/17 18:35 Dose: 1 tab Diltiazem HCl (Cardizem) 90 mg PO TID [facility] Last Admin: 01/12/17 18:35 Dose: 90 mg Guaifenesin (Robitussin) 200 mg NG QID [facility] Last Admin: 01/12/17 22:51 Dose: 200 mg Tigecycline 50 mg/ Sodium (Chloride) 100 mls @ 100 mls/hr IVPB Q12H [facility] Last Admin: 01/12/17 13:08 Dose: 100 mls/hr Moxifloxacin HCl (Avelox Iv 400mg/250ml Ns) 400 mg in 250 mls @ 167 mls/hr IVPB Q24H [facility] Last Admin: 01/12/17 16:17 Dose: 167 mls/hr Lidocaine (Lidoderm) 1 ea TD DAILY [facility] Last Admin: 01/12/17 18:36 Dose: 1 ea Losartan Potassium (Cozaar) 100 mg PO DAILY [facility] Last Admin: 01/12/17 10:34 Dose: 100 mg Mupirocin (Bactroban 2% Nasal) 0.5 gm VIRAJ BID [facility] Last Admin: 01/12/17 18:35 Dose: 0.5 gm Nystatin (Nystop Topical Powder) 1 applic TOP BID [facility] Last Admin: 01/12/17 18:36 Dose: 1 applic Pantoprazole Sodium (Protonix Inj) 40 mg IVP DAILY [facility] Last Admin: 01/12/17 10:35 Dose: 40 mg Phenol/Menthol (Phenaseptic 1.4% Throat [place]) 0 ml MT Q2H PRN PRN Reason: Sore Throat Last Admin: 12/24/16 10:54 Dose: 1 spr - Labs Labs: 01/11/17 11:28 01/11/17 07:15 PT 12.6 SECONDS (9.7-12.2) H 12/21/16 11:39 INR 1.1 12/21/16 11:39 APTT 25 SECONDS (21-34) 12/21/16 11:39 - Constitutional Appears: No Acute Distress, Chronically Ill - Head Exam Head Exam: ATRAUMATIC, NORMAL INSPECTION, NORMOCEPHALIC - Eye Exam Eye Exam: EOMI, Normal appearance, PERRL Pupil Exam: NORMAL ACCOMODATION, PERRL - Respiratory Exam Respiratory Exam: Clear to Ausculation Bilateral, NORMAL BREATHING PATTERN - Cardiovascular Exam Cardiovascular Exam: REGULAR RHYTHM, +S1, +S2. absent: Murmur - GI/Abdominal Exam GI & Abdominal Exam: Soft, Normal Bowel Sounds. absent: Tenderness Assessment and Plan (1) Abdominal pain Status: Acute (2) Small bowel obstruction Status: Acute (3) Diabetes mellitus Status: Chronic (4) Hypertension Status: Chronic (5) Pneumonia Status: Acute
[2017-01-13] MEDS: Albuterol-Ipratrop 3 mg / 0.5 (3 ml) UD INH SCH ×4 (03:56→20:35)
[2017-01-13] MEDS: guaiFENesin 200 mg/10 ml Syrup UD NG SCH ×4 (09:37→22:03)
[2017-01-13] MEDS: Mupirocin 2% Ointment (NASAL) NAS SCH ×2 (09:37→19:04)
[2017-01-13] MEDS: Acetaminophen 650mg/20.3ml solution UD PO PRN ×2 (09:38→15:13)
[2017-01-13] MEDS: Lidocaine 5% Patch TD SCH ×2 (10:14→19:04)
[2017-01-13 11:23] LABS: BASO % 0.5 % (0.0-2.0); EOS # 0.1 K/uL (0.0-0.7); EOS % 0.6 % (0.0-4.0); HEMATOCRIT 23.9 % (34.0-47.0); LYMPH # 2.2 K/uL (1.0-4.3); LYMPH % 25.3 % (20.0-40.0); MEAN CELL VOLUME 81.7 fL (81.0-99.0); MEAN CORPUSCULAR HEMOGLOBIN 26.5 pg (27.0-31.0); MEAN CORPUSCULAR HGB CONC 32.4 g/dL (33.0-37.0); MEAN PLATELET VOLUME 7.8 fL (7.2-11.7); MONO # 0.7 K/uL (0.0-0.8); MONO % 7.7 % (0.0-10.0); NRBC % 0.1 % (0.0-2.0); RED CELL DISTRIBUTION WIDTH 17.4 % (11.5-14.5); WHITE BLOOD COUNT 8.5 K/uL (4.8-10.8)
[2017-01-13 11:28] LABS: CHLORIDE 113 mmol/L (98-107); POTASSIUM 4.1 mmol/L (3.6-5.2); SODIUM 144 mmol/L (132-148)
[2017-01-13 11:30] LABS: INR 1.1
[2017-01-13 11:31] LABS: BLOOD UREA NITROGEN 23 mg/dL (7-17); CARBON DIOXIDE 26 mmol/L (22-30); GFR AFRICAN-AMERICAN > 60
[2017-01-13 11:32] LABS: CALCIUM 7.3 mg/dl (8.6-10.4); GLUCOSE,RANDOM 118 mg/dL (65-105)
--- NOTE | 2017-01-13 12:50 | PN ---
DATE: 01/13/2017 LOCATION: 354. This is an 86-year-old female seen for GI consultation on 01/12/2017, reexamined again today without si gnificant clinical changes. The entire chart is reviewed, including but not limited to the most rece nt lab and radiology study results, current and previous medication lists, current and the previous m edical events. The case discussed at length with the staff on the floor as well as the patient's elton ce at bedside. The case also discussed with the patient's son at length. The patient is nonverbal. LABORATORY DATA: The most recent lab results showed hemoglobin of 7.7, hematocrit 23.9 with normal p latelet count and increased BUN to 27 with normal creatinine with blood glucose level of 116, low scottie cium 7.7 with the latest PT and PTT normal. The patient is still on NG tube feeding. PHYSICAL EXAMINATION: GENERAL: An 86-year-old female with a low grade temperature of 99.5, heart rate of 80, blood pressur e of 156/66, with respiratory rate of 20-22. HEENT: Showed pale, dry oral mucoid membrane. Nonicteric sclerae. LUNGS: Few scattered crepitation, decreased air entry at bases. HEART: Positive S1 and S2. ABDOMEN: Soft. Bowel sounds are present with mild generalized tenderness. No mass or organomegaly. EXTREMITIES: With edematous changes. No clubbing or cyanosis. NEUROLOGIC: No reported neurological deficits, sensory or motor. IMPRESSION: 1. Malnutrition. 2. Anemia. 3. Known history of osteoarthritis, congestive heart failure, hypertension, COPD. 4. Known history of parkinsonian disease, hyperlipidemia as well as pneumonia with pulmonary embolis m. 5. Recent history of reported small-bowel obstruction, treated surgically. 6. Poor oral intake, hypoalbuminemia, malnutrition. The patient is a candidate for PEG insertion versus gastrostomy tube insertion. SUGGESTION: 1. Agree with your plan. 2. We will schedule the patient for PEG insertion if the son agrees and signs the consent. No final decision so far is made from the family regarding the PEG insertion. Further recommendation to foll ow and the peripheral hyperalimentation to continue besides NG tube feeding. The patient will need blood transfusion. Dorian Slaughter MD cc: 14 TT: 01/13/2017 12:50:15 Confirmation # [id number] Dictation # [id number] rn
[2017-01-13 13:45] LABS: CARCINOEMBRYONIC ANTIGEN 4.1 ng/mL (0-3.0)
--- NOTE | 2017-01-13 14:04 | CP.PCM.PN ---
Subjective - Date & Time of Evaluation Date of Evaluation: 01/13/17 Time of Evaluation: 14:04 - Subjective Subjective: AFEBRILE ON NGT FEEDINGS AWAITING NEURO EVAL. DAUGHTER AT BEDSIDE. Objective - Vital Signs/Intake and Output Vital Signs (last 24 hours): Temp Pulse Resp BP Pulse Ox 98.7 F 95 H 20 155/64 H 96 01/13/17 08:00 01/13/17 08:00 01/13/17 08:00 01/13/17 08:00 01/13/17 08:00 Intake and Output: 01/13/17 01/13/17 06:59 18:59 Intake Total 1400 Output Total 800 Balance 600 - Medications Medications: Current Medications Acetaminophen (Tylenol 650mg/20.3ml Solution Ud) 650 mg PO Q6 PRN PRN Reason: Fever >100.4 F Stop: 01/18/17 13:50 Last Admin: 01/13/17 09:38 Dose: 650 mg Albuterol/Ipratropium (Duoneb 3 Mg/0.5 Mg (3 Ml) Ud) 3 ml INH RQ6 [facility] Last Admin: 01/13/17 08:27 Dose: 3 ml Carbidopa/Levodopa (Sinemet 10/100) 1 tab PO TID [facility] Last Admin: 01/13/17 13:22 Dose: 1 tab Diltiazem HCl (Cardizem) 90 mg PO TID [facility] Last Admin: 01/13/17 13:22 Dose: 90 mg Guaifenesin (Robitussin) 200 mg NG QID [facility] Last Admin: 01/13/17 13:24 Dose: 200 mg Tigecycline 50 mg/ Sodium (Chloride) 100 mls @ 100 mls/hr IVPB Q12H [facility] Last Admin: 01/13/17 13:22 Dose: 100 mls/hr Moxifloxacin HCl (Avelox Iv 400mg/250ml Ns) 400 mg in 250 mls @ 167 mls/hr IVPB Q24H [facility] Last Admin: 01/12/17 16:17 Dose: 167 mls/hr Lidocaine (Lidoderm) 1 ea TD 1800 [facility] Losartan Potassium (Cozaar) 100 mg PO DAILY [facility] Last Admin: 01/13/17 09:37 Dose: 100 mg Mupirocin (Bactroban 2% Nasal) 0.5 gm VIRAJ BID [facility] Last Admin: 01/13/17 09:37 Dose: 0.5 gm Nystatin (Nystop Topical Powder) 1 applic TOP BID [facility] Last Admin: 01/13/17 09:38 Dose: 1 applic Pantoprazole Sodium (Protonix Inj) 40 mg IVP DAILY [facility] Last Admin: 01/13/17 09:38 Dose: 40 mg Phenol/Menthol (Phenaseptic 1.4% Throat [place]) 0 ml MT Q2H PRN PRN Reason: Sore Throat Last Admin: 12/24/16 10:54 Dose: 1 spr - Labs Labs: 01/13/17 11:16 01/13/17 11:16 PT 13.1 SECONDS (9.7-12.2) H 01/13/17 11:16 INR 1.1 01/13/17 11:16 APTT 28 SECONDS (21-34) 01/13/17 11:16 - Constitutional Appears: No Acute Distress - Head Exam Head Exam: NORMAL INSPECTION - Eye Exam Eye Exam: PERRL - ENT Exam ENT Exam: Mucous Membranes Moist - Neck Exam Neck Exam: Normal Inspection - Respiratory Exam Respiratory Exam: Rales, Rhonchi - Cardiovascular Exam Cardiovascular Exam: REGULAR RHYTHM, +S1, +S2 - GI/Abdominal Exam GI & Abdominal Exam: Soft (POST OPT .INCISION CLEAN ), Normal Bowel Sounds - Extremities Exam Extremities Exam: Pedal Edema. absent: Calf Tenderness - Neurological Exam Neurological Exam: Altered (DROWSY) - Psychiatric Exam Psychiatric exam: Flat Affect - Skin Skin Exam: Normal Color, Warm Assessment and Plan (1) Fever Status: Acute (2) Pneumonia Assessment & Plan: Continue iv tygacil 50mg ivpb [id number]/27 X TOTAL OF 21 DAYS.- DAY on iv avelox 400mg iv od daily 01/02 X TOTAL OF 14 DAYS- PULMONARY TOILET. F/U CXR Status: Suspected (3) Small bowel obstruction Status: Acute (4) COPD exacerbation Status: Acute (5) Diabetes mellitus Status: Chronic (6) Hypertension Status: Chronic (7) Anemia Status: Acute
[2017-01-13] MEDS ORDERED: Nitroglycerin 2% Ointment Foilpak UD TOP ONE (22:45)
[2017-01-14] MEDS: Albuterol-Ipratrop 3 mg / 0.5 (3 ml) UD INH SCH ×3 (01:43→21:06)
--- NOTE | 2017-01-14 03:02 | CP.PCM.PN ---
Subjective - Date & Time of Evaluation Date of Evaluation: 01/13/17 Time of Evaluation: 19:00 - Subjective Subjective: Pt seen and examined, pt is for blood transfusion her H and H keeps dropping, she is weak and shaky at times, pt might need peg feeds but pt family deferred peg placement Objective - Vital Signs/Intake and Output Vital Signs (last 24 hours): Temp Pulse Resp BP Pulse Ox 98.9 F 84 20 150/76 96 01/14/17 01:35 01/14/17 01:35 01/14/17 01:35 01/14/17 01:35 01/14/17 00:00 Intake and Output: 01/13/17 01/14/17 18:59 06:59 Intake Total 0 1325 Output Total 700 Balance 0 625 - Medications Medications: Current Medications Acetaminophen (Tylenol 650mg/20.3ml Solution Ud) 650 mg PO Q6 PRN PRN Reason: Fever >100.4 F Stop: 01/18/17 13:50 Last Admin: 01/13/17 15:13 Dose: 650 mg Albuterol/Ipratropium (Duoneb 3 Mg/0.5 Mg (3 Ml) Ud) 3 ml INH RQ6 [facility] Last Admin: 01/14/17 01:43 Dose: 3 ml Carbidopa/Levodopa (Sinemet) 1 tab PO TID [facility] Last Admin: 01/13/17 19:03 Dose: 1 tab Diltiazem HCl (Cardizem) 90 mg PO TID [facility] Last Admin: 01/13/17 19:03 Dose: 90 mg Guaifenesin (Robitussin) 200 mg NG QID [facility] Last Admin: 01/13/17 22:03 Dose: 200 mg Tigecycline 50 mg/ Sodium (Chloride) 100 mls @ 100 mls/hr IVPB Q12H [facility] Last Admin: 01/14/17 01:37 Dose: 100 mls/hr Lidocaine (Lidoderm) 1 ea TD 1800 [facility] Last Admin: 01/13/17 19:04 Dose: 1 ea Losartan Potassium (Cozaar) 100 mg PO DAILY [facility] Last Admin: 01/13/17 09:37 Dose: 100 mg Mupirocin (Bactroban 2% Nasal) 0.5 gm VIRAJ BID [facility] Last Admin: 01/13/17 19:04 Dose: 0.5 gm Nystatin (Nystop Topical Powder) 1 applic TOP BID [facility] Last Admin: 01/13/17 19:04 Dose: 1 applic Pantoprazole Sodium (Protonix Inj) 40 mg IVP DAILY [facility] Last Admin: 01/13/17 09:38 Dose: 40 mg Phenol/Menthol (Phenaseptic 1.4% Throat [place]) 0 ml MT Q2H PRN PRN Reason: Sore Throat Last Admin: 12/24/16 10:54 Dose: 1 spr - Labs Labs: 01/13/17 11:16 01/13/17 11:16 PT 13.1 SECONDS (9.7-12.2) H 01/13/17 11:16 INR 1.1 01/13/17 11:16 APTT 28 SECONDS (21-34) 01/13/17 11:16 - Constitutional Appears: No Acute Distress, Confused, Chronically Ill - Head Exam Head Exam: ATRAUMATIC, NORMAL INSPECTION, NORMOCEPHALIC - Eye Exam Eye Exam: EOMI, Normal appearance, PERRL Pupil Exam: NORMAL ACCOMODATION, PERRL - ENT Exam ENT Exam: Mucous Membranes Moist, Normal Exam - Respiratory Exam Respiratory Exam: Decreased Breath Sounds, Rales - Cardiovascular Exam Cardiovascular Exam: REGULAR RHYTHM, +S1, +S2. absent: Murmur Assessment and Plan (1) Abdominal pain Status: Acute (2) Small bowel obstruction Status: Acute (3) Diabetes mellitus Status: Chronic (4) Hypertension Status: Chronic (5) Pneumonia Status: Acute
[2017-01-14 06:59] LABS: BASO % 0.4 % (0.0-2.0); EOS # 0.1 K/uL (0.0-0.7); EOS % 0.9 % (0.0-4.0); HEMATOCRIT 32.3 % (34.0-47.0); LYMPH # 3.1 K/uL (1.0-4.3); LYMPH % 29.7 % (20.0-40.0); MEAN CELL VOLUME 82.7 fL (81.0-99.0); MEAN CORPUSCULAR HEMOGLOBIN 26.8 pg (27.0-31.0); MEAN CORPUSCULAR HGB CONC 32.4 g/dL (33.0-37.0); MEAN PLATELET VOLUME 7.7 fL (7.2-11.7); MONO # 0.8 K/uL (0.0-0.8); NRBC % 0.1 % (0.0-2.0); RED CELL DISTRIBUTION WIDTH 17.3 % (11.5-14.5); WHITE BLOOD COUNT 10.5 K/uL (4.8-10.8)
[2017-01-14 07:59] LABS: BLOOD UREA NITROGEN 25 mg/dL (7-17); CALCIUM 7.5 mg/dl (8.6-10.4); CARBON DIOXIDE 24 mmol/L (22-30); CHLORIDE 111 mmol/L (98-107); GFR AFRICAN-AMERICAN > 60; GLUCOSE,RANDOM 106 mg/dL (65-105); POTASSIUM 4.7 mmol/L (3.6-5.2); SODIUM 141 mmol/L (132-148)
--- NOTE | 2017-01-14 10:27 | PN ---
DATE: 01/14/2017 LOCATION: 354, bed A. This is an 86-year-old female, seen and examined in rounds today, post blood transfusion as requested by myself. The patient is not responding adequately to verbal stimuli, but occasionally to painful stimuli. Seen with some of the family members at bedside before. The entire chart is reviewed including, but not limited to, most recent lab and radiology study resul ts, current and previous medication lists, current and previous medical events and the most recent la b results post transfusion showed hemoglobin of 10.5, hematocrit 32.3 with normal white blood cells a nd normal platelet count with slightly elevated PT to 13.1 with increased BUN 25, but normal creatini ne with blood glucose level 106 as well as low calcium 7.5 with increased CEA level to 4.1. Case dis cussed at length with the staff on the floor as well as the family members. PHYSICAL EXAMINATION: GENERAL: An 86-year-old female. VITAL SIGNS: Afebrile with pulse of 82, respiratory rate 20-22, blood pressure of 146/70. HEENT: Showed pale, dry oral mucoid membrane. Nonicteric sclerae. NG tube is in place. LUNGS: Few scattered crepitation with decreased air entry at bases. HEART: Positive S1 and S2. ABDOMEN: Soft with slight distention with mild generalized tenderness. Bowel sounds are hypoactive. No mass or organomegaly. EXTREMITIES: With edematous changes. No clubbing or cyanosis. NEUROLOGIC: No reported new neurological deficits, sensory or motor. IMPRESSION: 1. Status post small bowel obstruction. 2. Malnutrition with hypoalbuminemia. 3. Dysphagia. 4. Reexacerbation of chronic obstructive pulmonary disease. 5. Peptic ulcer disease by history. 6. Known history of hypertension, diabetes mellitus. 7. Anemia, most likely secondary to above. The possibility of gastrointestinal blood loss was raise d. 8. Recent history of pneumonia with pulmonary embolism. 9. Known history of hyperlipidemia. 10. Parkinsonian disease by history. SUGGESTION: 1. Continue current management. 2. Awaiting the patient's son's decision regarding PEG tube insertion. Family did not decide yet re garding insertion of a PEG tube or not despite my long discussion with the patient's son yesterday re garding the need for PEG insertion. 3. The patient will need continue also peripheral hyperalimentation for nutritional support. 4. Case is to be discussed with Dr. Cano, patient is status post exploratory laparotomy with sma ll bowel resection and anastomosis secondary to obstruction. Dorian Slaughter MD cc: 14 TT: 01/14/2017 10:26:11 Confirmation # [id number] Dictation # [id number] en
[2017-01-14] MEDS: Mupirocin 2% Ointment (NASAL) NAS SCH ×2 (10:31→19:00)
[2017-01-14] MEDS: guaiFENesin 200 mg/10 ml Syrup UD NG SCH ×4 (10:31→22:38)
[2017-01-14] MEDS: Acetaminophen 650mg/20.3ml solution UD PO PRN (10:31)
--- NOTE | 2017-01-14 12:27 | CON ---
DATE: 01/12/2017 LOCATION: 354, bed A. From Dr. Dorian Slaughter to Dr. Desmond Santiago. I was called for GI consultation by the admitting MD. The patient is seen and fully examined on 09/2016 in the presence of her family members at bedside. The entire chart is reviewed, including but not limited to most recent lab and radiology study results, current and the previous medication list , current and the previous medical events, allergies to medication list as well as all the available current and the previous medical records and the nursing and medical staff notes. Case was discussed at length with the staff on the floor. HISTORY OF PRESENT ILLNESS: This is an 83-year-old female who was initially admitted to the hospital with underlying diagnosis of a small-bowel obstruction with initial complaint of abdominal pain with apparently episodes of nausea and vomiting at that time. Subsequently, a CAT scan of the abdomen an d the pelvis at that time initially confirmed the small-bowel obstruction, and the patient underwent exploratory laparotomy by Dr. Cano with partial small bowel resection and anastomosis. The patient had subsequent drop of hemoglobin and hematocrit with poor oral intake post-surgically fo r which NG tube was inserted for feeding purposes. I was called for GI consultation for potential PEG insertion. PAST MEDICAL HISTORY: Including but not limited to: 1. Recent small-bowel obstruction treated surgically. 2. Known history of COPD, hypertension and hyperlipidemia. 3. Known history of parkinsonian disease. 4. Recurrent episode of pneumonia with bronchitis. 5. Known history of pulmonary embolus. Had been on anticoagulation before. 6. Chronic lower back pain syndrome. 7. Endoscopic evaluation of the GI tract done last year. FAMILY HISTORY: Unknown. SOCIAL HISTORY: No reported history of cigarette smoking or alcohol intake recently. CURRENT MEDICATIONS: Medication lists were reviewed. ALLERGIES TO MEDICATION: PENICILLIN. The most recent lab results done showed white blood cells of 12.1 with low hemoglobin of 8.5, low hem atocrit 27.2 with low indices but normal platelet count with increased BUN to 27, but normal creatini ne and elevated blood glucose level to 116, calcium 7.7. Most recent chest x-ray done on 01/10/2017 showed evidence of moderate venous congestion with possibl e pneumonia and a small pleural effusion. PHYSICAL EXAMINATION: GENERAL: An 86-year-old female, nonverbal. VITAL SIGNS: Afebrile with a pulse of 80, respiratory rate 20-22, blood pressure of 156/74. HEENT: Showed pale, dry oral mucoid membrane. Nonicteric sclerae. NG tube is in place. LYMPH NODES: No lymphadenitis or lymphadenopathy. LUNGS: Scattered crepitation with decreased air entry at bases. HEART: Positive S1 and S2. ABDOMEN: Soft with slight distention. Bowel sounds are present but hypoactive. Abdominal dressing appears to be intact, clear and clean. EXTREMITIES: Lower extremities, mild edematous changes. No clubbing or cyanosis. NEUROLOGIC: No reported new neurological deficit, sensory or motor. IMPRESSION: 1. Malnutrition. 2. Dysphagia. 3. Hypoalbuminemia. 4. The patient is a candidate for percutaneous endoscopic gastrostomy insertion. 5. Known history of, but not limited to, hypertension, hyperlipidemia, congestive heart failure with chronic obstructive pulmonary disease. 6. Known history of osteoarthritis and parkinsonian disease. 7. Recurrent episode of pneumonia before with bronchitis and pulmonary embolus. 8. Bowel obstruction, treat again surgically with exploratory laparotomy by Dr. Cano. SUGGESTION: 1. Agree with your plan. 2. Due the patient's anemia, blood transfusion is to be considered to keep hemoglobin around 10 gram percent. 3. Correct any underlying coagulopathy and electrolyte imbalance. 4. Peripheral hyperalimentation/NG tube feeding. 5. It has to be mentioned that initially I spent over 35-40 minutes with the son at bedside explaini ng to him the mother's need for PEG tube. No final decision yet from the family to agree for the PEG tube insertion. Primary MD to be informed, and we will continue current medication and treatment. 6. Cancer markers. 7. Guaiac all the stool daily x 3. 8. Proton pump inhibitors. Thank you for letting me participate in your patient's case management. We will follow up closely wi th you. Dorian Slaughter MD cc: 14 TT: 01/14/2017 12:27:18 Confirmation # [id number] Dictation # [id number] ada
[2017-01-14] MEDS: Lidocaine 5% Patch TD SCH (19:00)
--- NOTE | 2017-01-14 22:47 | CP.PCM.PN ---
Subjective - Date & Time of Evaluation Date of Evaluation: 01/14/17 Time of Evaluation: 22:00 - Subjective Subjective: Pt seen and examined, daughter at bedside, she is for peg placement tommorow, afberile, no acute distress Objective - Vital Signs/Intake and Output Vital Signs (last 24 hours): Temp Pulse Resp BP Pulse Ox 97.8 F 76 20 132/79 96 01/14/17 16:00 01/14/17 16:00 01/14/17 16:00 01/14/17 16:00 01/14/17 16:00 Intake and Output: 01/14/17 01/15/17 18:59 06:59 Output Total 600 Balance -600 - Medications Medications: Current Medications Acetaminophen (Tylenol 650mg/20.3ml Solution Ud) 650 mg PO Q6 PRN PRN Reason: Fever >100.4 F Stop: 01/18/17 13:50 Last Admin: 01/14/17 10:31 Dose: 650 mg Albuterol/Ipratropium (Duoneb 3 Mg/0.5 Mg (3 Ml) Ud) 3 ml INH RQ6 [facility] Last Admin: 01/14/17 21:06 Dose: 3 ml Carbidopa/Levodopa (Sinemet) 1 tab PO TID [facility] Last Admin: 01/14/17 19:00 Dose: 1 tab Diltiazem HCl (Cardizem) 90 mg PO TID [facility] Last Admin: 01/14/17 19:00 Dose: 90 mg Guaifenesin (Robitussin) 200 mg NG QID [facility] Last Admin: 01/14/17 22:38 Dose: 200 mg Tigecycline 50 mg/ Sodium (Chloride) 100 mls @ 100 mls/hr IVPB Q12H [facility] Last Admin: 01/14/17 13:34 Dose: 100 mls/hr Lidocaine (Lidoderm) 1 ea TD 1800 [facility] Last Admin: 01/14/17 19:00 Dose: 1 ea Losartan Potassium (Cozaar) 100 mg PO DAILY [facility] Last Admin: 01/14/17 10:31 Dose: 100 mg Mupirocin (Bactroban 2% Nasal) 0.5 gm VIRAJ BID [facility] Last Admin: 01/14/17 19:00 Dose: 0.5 gm Nystatin (Nystop Topical Powder) 1 applic TOP BID [facility] Last Admin: 01/14/17 19:00 Dose: 1 applic Pantoprazole Sodium (Protonix Inj) 40 mg IVP DAILY [facility] Last Admin: 01/14/17 10:30 Dose: 40 mg Phenol/Menthol (Phenaseptic 1.4% Throat [place]) 0 ml MT Q2H PRN PRN Reason: Sore Throat Last Admin: 12/24/16 10:54 Dose: 1 spr Trihexyphenidyl HCl (Artane) 1 mg PO BID [facility] Last Admin: 01/14/17 19:00 Dose: 1 mg - Labs Labs: 01/14/17 06:50 01/14/17 06:50 PT 13.1 SECONDS (9.7-12.2) H 01/13/17 11:16 INR 1.1 01/13/17 11:16 APTT 28 SECONDS (21-34) 01/13/17 11:16 - Constitutional Appears: Well, No Acute Distress, Chronically Ill - Head Exam Head Exam: ATRAUMATIC, NORMAL INSPECTION, NORMOCEPHALIC - Eye Exam Eye Exam: EOMI, Normal appearance, PERRL Pupil Exam: NORMAL ACCOMODATION, PERRL - ENT Exam ENT Exam: Mucous Membranes Moist, Normal Exam - Respiratory Exam Respiratory Exam: Clear to Ausculation Bilateral, NORMAL BREATHING PATTERN - Cardiovascular Exam Cardiovascular Exam: REGULAR RHYTHM, +S1, +S2. absent: Murmur Assessment and Plan (1) Abdominal pain Status: Acute (2) Small bowel obstruction Status: Acute (3) Diabetes mellitus Status: Chronic (4) Hypertension Status: Chronic (5) Pneumonia Status: Acute
--- NOTE | 2017-01-14 23:03 | CP.PCM.PN ---
Subjective - Date & Time of Evaluation Date of Evaluation: 01/14/17 Time of Evaluation: 23:03 - Subjective Subjective: AFEBRILE ON NGT FEEDINGS seen by GI AND DETAILED NOTES NOTED . PT FOR PEG PER GI IN AM DAUGHTER AT BEDSIDE Objective - Vital Signs/Intake and Output Vital Signs (last 24 hours): Temp Pulse Resp BP Pulse Ox 97.8 F 76 20 132/79 96 01/14/17 16:00 01/14/17 16:00 01/14/17 16:00 01/14/17 16:00 01/14/17 16:00 Intake and Output: 01/14/17 01/15/17 18:59 06:59 Output Total 600 Balance -600 - Medications Medications: Current Medications Acetaminophen (Tylenol 650mg/20.3ml Solution Ud) 650 mg PO Q6 PRN PRN Reason: Fever >100.4 F Stop: 01/18/17 13:50 Last Admin: 01/14/17 10:31 Dose: 650 mg Albuterol/Ipratropium (Duoneb 3 Mg/0.5 Mg (3 Ml) Ud) 3 ml INH RQ6 [facility] Last Admin: 01/14/17 21:06 Dose: 3 ml Carbidopa/Levodopa (Sinemet) 1 tab PO TID [facility] Last Admin: 01/14/17 19:00 Dose: 1 tab Diltiazem HCl (Cardizem) 90 mg PO TID [facility] Last Admin: 01/14/17 19:00 Dose: 90 mg Guaifenesin (Robitussin) 200 mg NG QID [facility] Last Admin: 01/14/17 22:38 Dose: 200 mg Lidocaine (Lidoderm) 1 ea TD 1800 [facility] Last Admin: 01/14/17 19:00 Dose: 1 ea Losartan Potassium (Cozaar) 100 mg PO DAILY [facility] Last Admin: 01/14/17 10:31 Dose: 100 mg Mupirocin (Bactroban 2% Nasal) 0.5 gm VIRAJ BID [facility] Last Admin: 01/14/17 19:00 Dose: 0.5 gm Nystatin (Nystop Topical Powder) 1 applic TOP BID [facility] Last Admin: 01/14/17 19:00 Dose: 1 applic Pantoprazole Sodium (Protonix Inj) 40 mg IVP DAILY [facility] Last Admin: 01/14/17 10:30 Dose: 40 mg Phenol/Menthol (Phenaseptic 1.4% Throat [place]) 0 ml MT Q2H PRN PRN Reason: Sore Throat Last Admin: 12/24/16 10:54 Dose: 1 spr Trihexyphenidyl HCl (Artane) 1 mg PO BID [facility] Last Admin: 01/14/17 19:00 Dose: 1 mg - Labs Labs: 01/14/17 06:50 01/14/17 06:50 PT 13.1 SECONDS (9.7-12.2) H 01/13/17 11:16 INR 1.1 01/13/17 11:16 APTT 28 SECONDS (21-34) 01/13/17 11:16 - Constitutional Appears: No Acute Distress - Head Exam Head Exam: NORMAL INSPECTION - Eye Exam Eye Exam: PERRL - ENT Exam ENT Exam: Mucous Membranes Moist - Neck Exam Neck Exam: Normal Inspection - Respiratory Exam Respiratory Exam: Rhonchi (B/L) - Cardiovascular Exam Cardiovascular Exam: REGULAR RHYTHM, +S1, +S2 - GI/Abdominal Exam GI & Abdominal Exam: Soft, Normal Bowel Sounds (SUTURE LINE INTACT) - Extremities Exam Extremities Exam: Pedal Edema. absent: Calf Tenderness - Neurological Exam Neurological Exam: Awake - Psychiatric Exam Psychiatric exam: Normal Affect - Skin Skin Exam: Normal Color, Warm Assessment and Plan (1) Fever Status: Acute (2) Pneumonia Assessment & Plan: Continue iv tygacil 50mg ivpb [id number].12/27 X TOTAL OF 21 DAYS.- DAY on iv avelox 400mg iv od daily 01/02 X TOTAL OF 14 DAYS- PULMONARY TOILET. F/U CXR FOR PEG IN AM PER GI. Status: Suspected (3) Small bowel obstruction Status: Acute (4) COPD exacerbation Status: Acute (5) Diabetes mellitus Status: Chronic (6) Hypertension Status: Chronic (7) Anemia Status: Acute
[2017-01-15] MEDS: Albuterol-Ipratrop 3 mg / 0.5 (3 ml) UD INH SCH ×4 (01:06→19:45)
[2017-01-15] MEDS ORDERED: Pantoprazole 40 mg EC Tab PO SCH (10:00)
--- NOTE | 2017-01-15 11:02 | PN ---
DATE: 01/15/2017 LOCATION: 354. This is an 86-year-old female seen and examined at rounds in the presence of the family including the son at bedside. No reported new significant clinical changes, and the patient is still on NG tube f eeding. It has to be mentioned clearly that no final decision done by the family regarding PEG insertion or n ot, and the patient had 2 units of blood transfusion yesterday. The entire chart is reviewed, including but not limited to the most recent lab and radiology study re sults, current and previous medication lists, current and the previous medical events, and the latest hemoglobin post blood transfusion is 10.5, hematocrit 32.3 with low indices and mild increase of BUN to 25, but normal creatinine with blood glucose level of 106 and calcium 7.5 (low), and CEA reported to be elevated to 4.1. Case discussed at length with the staff on the floor. PHYSICAL EXAMINATION: GENERAL: An 86-year-old female, not responding to verbal stimuli. VITAL SIGNS: Afebrile with pulse of 94, respiratory rate 20-22, blood pressure of 154/70. HEENT: Showed pale, dry oral mucoid membrane. Nonicteric sclerae. LUNGS: A few scattered crepitations. Decreased air entry at bases. HEART: Positive S1 and S2 with increased rate. ABDOMEN: Soft. Bowel sounds are present. No mass or organomegaly. No rebound tenderness or guardi ng. EXTREMITIES: With mild lower extremities edematous changes. No clubbing or cyanosis. NEUROLOGIC: No reported new neurologic deficits, sensory or motor. IMPRESSION: 1. Dysphagia. 2. Malnutrition. 3. Pneumonia, on antibiotics. 4. Recent history of small-bowel obstruction with partial resection and anastomosis done by Dr. Mari omer. 5. Known history of chronic obstructive pulmonary disease, diabetes mellitus and hypertension. 6. Anemia, most likely secondary to above. 7. Again, patient is a candidate for percutaneous endoscopic gastrostomy tube insertion when the fam sami agrees. 8. Known history of peptic ulcer disease. 9. Known history of hyperlipidemia. 10. Parkinsonian disease by history. SUGGESTION: 1. Continue current management. 2. Increase the rate of NG tube feeding as well as peripheral hyperalimentation. 3. Repeat swallow evaluation, as requested by the family. It has to be mentioned again that the family did not agree so far for any PEG insertion, and that to be discussed with Dr. Santiago regarding the first step of the management of the patient. Will follow up closely with you. Thank you for letting me participate in your patient's case management. Dorian Slaughter MD cc: 14 TT: 01/15/2017 11:00:53 Confirmation # [id number] Dictation # [id number]
[2017-01-15] MEDS: guaiFENesin 200 mg/10 ml Syrup UD NG SCH ×4 (11:21→21:59)
[2017-01-15] MEDS: Pantoprazole 40 mg Susp UD PO SCH (11:21)
[2017-01-15] MEDS: Mupirocin 2% Ointment (NASAL) NAS SCH ×2 (11:29→18:39)
[2017-01-15] MEDS ORDERED: Propofol 10 mg/ml Inj (20 ML) ONE (12:46)
[2017-01-15] MEDS ORDERED: Phenylephrine 10 mg/ml Inj ONE (12:46)
[2017-01-15] MEDS ORDERED: Ciprofloxacin 200mg/100ml D5W 100 ML IVPB SCH (14:00)
[2017-01-15] MEDS: Acetaminophen 650mg/20.3ml solution UD PO PRN ×2 (15:42→22:00)
--- NOTE | 2017-01-15 16:26 | CP.PCM.PN ---
Subjective - Date & Time of Evaluation Date of Evaluation: 01/15/17 Time of Evaluation: 16:25 - Subjective Subjective: AFEBRILE. RESTING ,COMFORTABLE S/P EGD /PEG INSERTION. 01/16/17 FAMILY AT BEDSIDE. Objective - Vital Signs/Intake and Output Vital Signs (last 24 hours): Temp Pulse Resp BP Pulse Ox 97.8 F 78 21 175/71 H 97 01/15/17 13:50 01/15/17 13:50 01/15/17 13:50 01/15/17 13:50 01/15/17 13:50 Intake and Output: 01/15/17 01/15/17 06:59 18:59 Intake Total 325 Output Total 600 600 Balance -600 -275 - Medications Medications: Current Medications Acetaminophen (Tylenol 650mg/20.3ml Solution Ud) 650 mg PO Q6 PRN PRN Reason: Fever >100.4 F Stop: 01/18/17 13:50 Last Admin: 01/15/17 15:42 Dose: 650 mg Albuterol/Ipratropium (Duoneb 3 Mg/0.5 Mg (3 Ml) Ud) 3 ml INH RQ6 [facility] Last Admin: 01/15/17 13:30 Dose: Not Given Carbidopa/Levodopa (Sinemet) 1 tab PO Q8H [facility] Last Admin: 01/15/17 15:40 Dose: 1 tab Diltiazem HCl (Cardizem) 90 mg PO TID [facility] Last Admin: 01/15/17 15:40 Dose: 90 mg Guaifenesin (Robitussin) 200 mg NG QID [facility] Last Admin: 01/15/17 15:40 Dose: 200 mg Tigecycline 50 mg/ Sodium (Chloride) 100 mls @ 100 mls/hr IVPB Q12H [facility] Stop: 01/18/17 01:00 Last Admin: 01/15/17 15:41 Dose: 100 mls/hr Ciprofloxacin (Cipro 200mg/100ml D5w) 100 mls @ 66.667 mls/hr IVPB Q12H [facility] Lidocaine (Lidoderm) 1 ea TD 1800 [facility] Last Admin: 01/14/17 19:00 Dose: 1 ea Losartan Potassium (Cozaar) 100 mg PO DAILY [facility] Last Admin: 01/15/17 11:29 Dose: 100 mg Mupirocin (Bactroban 2% Nasal) 0.5 gm VIRAJ BID [facility] Last Admin: 01/15/17 11:29 Dose: 0.5 gm Nystatin (Nystop Topical Powder) 1 applic TOP BID [facility] Last Admin: 01/15/17 11:30 Dose: 1 applic Pantoprazole Sodium (Protonix Susp) 40 mg PO DAILY [facility] Last Admin: 01/15/17 11:21 Dose: Not Given Phenol/Menthol (Phenaseptic 1.4% Throat [place]) 0 ml MT Q2H PRN PRN Reason: Sore Throat Last Admin: 12/24/16 10:54 Dose: 1 spr Trihexyphenidyl HCl (Artane) 1 mg PO Q12 [facility] Stop: 01/15/17 22:01 Trihexyphenidyl HCl (Artane) 2 mg PO Q12 [facility] - Labs Labs: 01/14/17 06:50 01/14/17 06:50 PT 13.1 SECONDS (9.7-12.2) H 01/13/17 11:16 INR 1.1 01/13/17 11:16 APTT 28 SECONDS (21-34) 01/13/17 11:16 - Constitutional Appears: No Acute Distress - Head Exam Head Exam: NORMAL INSPECTION - Eye Exam Eye Exam: PERRL - ENT Exam ENT Exam: Normal Exam, Normal Oropharynx - Neck Exam Neck Exam: Normal Inspection - Respiratory Exam Respiratory Exam: Decreased Breath Sounds - Cardiovascular Exam Cardiovascular Exam: REGULAR RHYTHM, +S1, +S2 - GI/Abdominal Exam GI & Abdominal Exam: Soft, Normal Bowel Sounds (INCISION SITE CLEAN.PEG IN PLACE.) - Extremities Exam Extremities Exam: Pedal Edema - Neurological Exam Neurological Exam: Altered (DROWSY /POST PEG.) - Skin Skin Exam: Normal Color, Warm Assessment and Plan (1) Fever Status: Acute (2) Pneumonia Assessment & Plan: Continue iv tygacil 50mg ivpb [id number]/27 X TOTAL OF 21 DAYS.- on iv avelox 400mg iv od daily 01/02 X TOTAL OF 14 DAYS. PT NOTED TO BE ON CIPRO 200IV [id number]. ?? PULMONARY TOILET. F/U CXR IN AM. F/U LFTS JORDAN Status: Suspected (3) Small bowel obstruction Status: Acute (4) COPD exacerbation Status: Acute (5) Diabetes mellitus Status: Chronic (6) Hypertension Status: Chronic (7) Anemia Status: Acute
[2017-01-15] MEDS: Ciprofloxacin 200mg/100ml D5W 100 ML IVPB SCH (16:50)
[2017-01-15] MEDS: Lidocaine 5% Patch TD SCH (18:37)
[2017-01-16] MEDS: Albuterol-Ipratrop 3 mg / 0.5 (3 ml) UD INH SCH ×4 (01:09→20:40)
[2017-01-16] MEDS: Ciprofloxacin 200mg/100ml D5W 100 ML IVPB SCH ×2 (03:31→14:00)
--- NOTE | 2017-01-16 08:12 | PN ---
DATE: 01/16/2017 LOCATION: 354 A. This is an 86-year-old female post-PEG insertion seen and examined in rounds, tolerating PEG feeding well, nonverbal with poor response to verbal stimuli. It has to be mentioned that post-PEG insertion yesterday, case was discussed at length with the famil y and the staff in the floor. The entire chart is reviewed including, but not limited to the most recent lab and radiology study re sults, current and the previous medication lists, current and the previous medical events and today's lab results still pending. PHYSICAL EXAMINATION: GENERAL: An 86-year-old female. VITAL SIGNS: Afebrile with pulse of 80, respiratory rate 20-22, blood pressure 134/64. HEENT: Showed pale, dry oral mucoid membrane. Nonicteric sclerae. LUNGS: Few scattered mild crepitations with decreased air entry at bases. HEART: Positive S1 and S2. ABDOMEN: Soft. Bowel sounds are present with slight distention. PEG tube is in place with clean wo und. No residual, bleeding or resistance. EXTREMITIES: With lower extremity mild edematous changes. No clubbing or cyanosis. NEUROLOGIC: No new reported neurological deficits, sensory or motor. IMPRESSION: 1. Cerebrovascular accident with dysphagia. 2. Status post percutaneous endoscopic gastrostomy insertion. 3. Pneumonia. 4. Recent history of small bowel obstruction with status post partial resection and anastomosis done by Dr. Cano. 5. Known history of chronic obstructive pulmonary disease, hypertension, diabetes mellitus. 6. Anemia secondary to above. 7. Peptic ulcer disease. 8. History of parkinsonian disease. 9. Known history of hyperlipidemia. SUGGESTION: 1. Continue current management. 2. Subsequent increase of the patient's feeding tube rate and then increase frequency. 3. Follow up on hemoglobin and hematocrit. 4. Further recommendations to follow. Thank you for letting me participate in your patient's case management. We will follow up closely wi th you. Dorian Slaughter MD cc: 14 TT: 01/16/2017 08:11:49 Confirmation # [id number] Dictation # [id number]
[2017-01-16 08:15] LABS: ALB/GLOB RATIO 0.6 (1.0-2.1); BILIRUBIN,DIRECT 0.6 mg/dL (0.0-0.4); BILIRUBIN,TOTAL 0.8 mg/dL (0.2-1.3); TOTAL PROTEIN 5.9 g/dL (6.3-8.3)
[2017-01-16] MEDS: Mupirocin 2% Ointment (NASAL) NAS SCH ×2 (09:37→17:44)
[2017-01-16] MEDS: Pantoprazole 40 mg Susp UD PO SCH (09:43)
[2017-01-16] MEDS: guaiFENesin 200 mg/10 ml Syrup UD NG SCH ×4 (09:43→21:08)
[2017-01-16 12:19] LABS: BASO # 0.1 K/uL (0.0-0.2); BASO % 0.6 % (0.0-2.0); EOS % 0.2 % (0.0-4.0); LYMPH # 2.4 K/uL (1.0-4.3); LYMPH % 14.9 % (20.0-40.0); MEAN CELL VOLUME 81.9 fL (81.0-99.0); MEAN CORPUSCULAR HEMOGLOBIN 27.2 pg (27.0-31.0); MEAN CORPUSCULAR HGB CONC 33.1 g/dL (33.0-37.0); MEAN PLATELET VOLUME 7.3 fL (7.2-11.7); MONO # 0.7 K/uL (0.0-0.8); MONO % 4.1 % (0.0-10.0)
[2017-01-16 12:21] LABS: WHITE BLOOD COUNT 16.3 K/uL (4.8-10.8)
[2017-01-16 12:47] LABS: CHLORIDE 104 mmol/L (98-107); SODIUM 133 mmol/L (132-148)
[2017-01-16 12:48] LABS: POTASSIUM 3.9 mmol/L (3.6-5.2)
[2017-01-16 12:50] LABS: GFR AFRICAN-AMERICAN > 60
[2017-01-16 12:51] LABS: BLOOD UREA NITROGEN 20 mg/dL (7-17); CALCIUM 7.6 mg/dl (8.6-10.4); CARBON DIOXIDE 23 mmol/L (22-30); GLUCOSE,RANDOM 112 mg/dL (65-105)
--- NOTE | 2017-01-16 12:58 | CP.PCM.PN ---
Subjective - Date & Time of Evaluation Date of Evaluation: 01/15/17 Time of Evaluation: 10:00 - Subjective Subjective: pt sitting in chair, on NG tube feeding, on tagycl antibiotics, s/p SBO abdomen surgery, improving Objective - Vital Signs/Intake and Output Vital Signs (last 24 hours): Temp Pulse Resp BP Pulse Ox 99 F 89 20 141/77 96 01/16/17 08:00 01/16/17 08:00 01/16/17 08:00 01/16/17 08:00 01/16/17 08:00 Intake and Output: 01/16/17 01/16/17 06:59 18:59 Intake Total 885 Output Total 1000 Balance -115 - Medications Medications: Current Medications Acetaminophen (Tylenol 650mg/20.3ml Solution Ud) 650 mg PO Q6 PRN PRN Reason: Fever >100.4 F Stop: 01/18/17 13:50 Last Admin: 01/15/17 22:00 Dose: 650 mg Albuterol/Ipratropium (Duoneb 3 Mg/0.5 Mg (3 Ml) Ud) 3 ml INH RQ6 [facility] Last Admin: 01/16/17 07:50 Dose: 3 ml Carbidopa/Levodopa (Sinemet) 1 tab PO Q8H [facility] Last Admin: 01/16/17 06:08 Dose: 1 tab Diltiazem HCl (Cardizem) 90 mg PO TID [facility] Last Admin: 01/16/17 09:38 Dose: 90 mg Guaifenesin (Robitussin) 200 mg NG QID [facility] Last Admin: 01/16/17 09:43 Dose: 200 mg Tigecycline 50 mg/ Sodium (Chloride) 100 mls @ 100 mls/hr IVPB Q12H [facility] Stop: 01/18/17 01:00 Last Admin: 01/16/17 02:08 Dose: 100 mls/hr Ciprofloxacin (Cipro 200mg/100ml D5w) 100 mls @ 66.667 mls/hr IVPB Q12H [facility] Last Admin: 01/16/17 03:31 Dose: 66.667 mls/hr Metronidazole (Flagyl) 500 mg in 100 mls @ 100 mls/hr IVPB Q8 [facility] Lidocaine (Lidoderm) 1 ea TD 1800 [facility] Last Admin: 01/15/17 18:37 Dose: 1 ea Losartan Potassium (Cozaar) 100 mg PO DAILY [facility] Last Admin: 01/16/17 09:42 Dose: 100 mg Mupirocin (Bactroban 2% Nasal) 0.5 gm VIRAJ BID [facility] Last Admin: 01/16/17 09:37 Dose: 0.5 gm Nystatin (Nystop Topical Powder) 1 applic TOP BID [facility] Last Admin: 01/16/17 09:42 Dose: 1 applic Pantoprazole Sodium (Protonix Susp) 40 mg PO DAILY [facility] Last Admin: 01/16/17 09:43 Dose: 40 mg Phenol/Menthol (Phenaseptic 1.4% Throat [place]) 0 ml MT Q2H PRN PRN Reason: Sore Throat Last Admin: 12/24/16 10:54 Dose: 1 spr Trihexyphenidyl HCl (Artane) 2 mg PO Q12 [facility] Last Admin: 01/16/17 09:38 Dose: 2 mg - Labs Labs: 01/16/17 12:15 01/16/17 12:15 PT 13.1 SECONDS (9.7-12.2) H 01/13/17 11:16 INR 1.1 01/13/17 11:16 APTT 28 SECONDS (21-34) 01/13/17 11:16 Assessment and Plan (1) Abdominal pain Status: Acute (2) Small bowel obstruction Status: Acute (3) Diabetes mellitus Status: Chronic (4) Hypertension Status: Chronic (5) Pneumonia Status: Acute
--- NOTE | 2017-01-16 12:58 | CP.PCM.PN ---
Subjective - Date & Time of Evaluation Date of Evaluation: 01/16/17 Time of Evaluation: 09:45 - Subjective Subjective: Pt remains on NG tube, afebrile, on antibiotics for pneumonia, s/p abd surgery on post op care Objective - Vital Signs/Intake and Output Vital Signs (last 24 hours): Temp Pulse Resp BP Pulse Ox 99 F 89 20 141/77 96 01/16/17 08:00 01/16/17 08:00 01/16/17 08:00 01/16/17 08:00 01/16/17 08:00 Intake and Output: 01/16/17 01/16/17 06:59 18:59 Intake Total 885 Output Total 1000 Balance -115 - Medications Medications: Current Medications Acetaminophen (Tylenol 650mg/20.3ml Solution Ud) 650 mg PO Q6 PRN PRN Reason: Fever >100.4 F Stop: 01/18/17 13:50 Last Admin: 01/15/17 22:00 Dose: 650 mg Albuterol/Ipratropium (Duoneb 3 Mg/0.5 Mg (3 Ml) Ud) 3 ml INH RQ6 [facility] Last Admin: 01/16/17 07:50 Dose: 3 ml Carbidopa/Levodopa (Sinemet) 1 tab PO Q8H [facility] Last Admin: 01/16/17 06:08 Dose: 1 tab Diltiazem HCl (Cardizem) 90 mg PO TID [facility] Last Admin: 01/16/17 09:38 Dose: 90 mg Guaifenesin (Robitussin) 200 mg NG QID [facility] Last Admin: 01/16/17 09:43 Dose: 200 mg Tigecycline 50 mg/ Sodium (Chloride) 100 mls @ 100 mls/hr IVPB Q12H [facility] Stop: 01/18/17 01:00 Last Admin: 01/16/17 02:08 Dose: 100 mls/hr Ciprofloxacin (Cipro 200mg/100ml D5w) 100 mls @ 66.667 mls/hr IVPB Q12H [facility] Last Admin: 01/16/17 03:31 Dose: 66.667 mls/hr Metronidazole (Flagyl) 500 mg in 100 mls @ 100 mls/hr IVPB Q8 [facility] Lidocaine (Lidoderm) 1 ea TD 1800 [facility] Last Admin: 01/15/17 18:37 Dose: 1 ea Losartan Potassium (Cozaar) 100 mg PO DAILY [facility] Last Admin: 01/16/17 09:42 Dose: 100 mg Mupirocin (Bactroban 2% Nasal) 0.5 gm VIRAJ BID [facility] Last Admin: 01/16/17 09:37 Dose: 0.5 gm Nystatin (Nystop Topical Powder) 1 applic TOP BID [facility] Last Admin: 01/16/17 09:42 Dose: 1 applic Pantoprazole Sodium (Protonix Susp) 40 mg PO DAILY [facility] Last Admin: 01/16/17 09:43 Dose: 40 mg Phenol/Menthol (Phenaseptic 1.4% Throat [place]) 0 ml MT Q2H PRN PRN Reason: Sore Throat Last Admin: 12/24/16 10:54 Dose: 1 spr Trihexyphenidyl HCl (Artane) 2 mg PO Q12 [facility] Last Admin: 01/16/17 09:38 Dose: 2 mg - Labs Labs: 01/16/17 12:15 01/16/17 12:15 PT 13.1 SECONDS (9.7-12.2) H 01/13/17 11:16 INR 1.1 01/13/17 11:16 APTT 28 SECONDS (21-34) 01/13/17 11:16 Assessment and Plan (1) Abdominal pain Status: Acute (2) Small bowel obstruction Status: Acute (3) Diabetes mellitus Status: Chronic (4) Hypertension Status: Chronic (5) Pneumonia Status: Acute
[2017-01-16] MEDS: metroNIDAZOLE IV 500 mg/100 ml 500 MG/100 ML BAG IVPB SCH ×2 (13:57→21:12)
--- NOTE | 2017-01-16 14:54 | RAD ---
HISTORY: Follow-up pneumonia. Portable study 14:15. COMPARISON: 01/10/2017. FINDINGS: LUNGS: Improving lower lobe infiltrates bilaterally. PLEURA: No significant pleural effusion identified, no pneumothorax apparent. CARDIOVASCULAR: No radiographic findings to suggest acute or significant cardiovascular disease. PICC line in satisfactory position OSSEOUS STRUCTURES: No significant abnormalities. VISUALIZED UPPER ABDOMEN: Normal. OTHER FINDINGS: Removal of support apparatus since the prior study: Nasogastric tube. IMPRESSION: Improving lower lobe infiltrates.
--- NOTE | 2017-01-16 16:28 | CP.PCM.PN ---
Subjective - Date & Time of Evaluation Date of Evaluation: 01/16/17 Time of Evaluation: 16:28 - Subjective Subjective: AFEBRILE. AROUSABLE RESTING ,COMFORTABLE. S/P EGD /PEG INSERTION. 01/16/17 FAMILY AT BEDSIDE. CXR : 01/16/17: IMPROVING LLL INFILTRATE. ON IV ABX. Objective - Vital Signs/Intake and Output Vital Signs (last 24 hours): Temp Pulse Resp BP Pulse Ox 99 F 89 20 141/77 96 01/16/17 08:00 01/16/17 08:00 01/16/17 08:00 01/16/17 08:00 01/16/17 08:00 Intake and Output: 01/16/17 01/16/17 06:59 18:59 Intake Total 885 300 Output Total 1000 875 Balance -115 -575 - Medications Medications: Current Medications Acetaminophen (Tylenol 650mg/20.3ml Solution Ud) 650 mg PO Q6 PRN PRN Reason: Fever >100.4 F Stop: 01/18/17 13:50 Last Admin: 01/15/17 22:00 Dose: 650 mg Albuterol/Ipratropium (Duoneb 3 Mg/0.5 Mg (3 Ml) Ud) 3 ml INH RQ6 [facility] Last Admin: 01/16/17 13:38 Dose: Not Given Carbidopa/Levodopa (Sinemet) 1 tab PO Q8H [facility] Last Admin: 01/16/17 13:57 Dose: 1 tab Diltiazem HCl (Cardizem) 90 mg PO TID [facility] Last Admin: 01/16/17 13:55 Dose: 90 mg Guaifenesin (Robitussin) 200 mg NG QID [facility] Last Admin: 01/16/17 13:55 Dose: 200 mg Tigecycline 50 mg/ Sodium (Chloride) 100 mls @ 100 mls/hr IVPB Q12H [facility] Stop: 01/18/17 01:00 Last Admin: 01/16/17 15:13 Dose: 100 mls/hr Ciprofloxacin (Cipro 200mg/100ml D5w) 100 mls @ 66.667 mls/hr IVPB Q12H [facility] Last Admin: 01/16/17 03:31 Dose: 66.667 mls/hr Metronidazole (Flagyl) 500 mg in 100 mls @ 100 mls/hr IVPB Q8 [facility] Last Admin: 01/16/17 13:57 Dose: 100 mls/hr Lidocaine (Lidoderm) 1 ea TD 1800 [facility] Last Admin: 01/15/17 18:37 Dose: 1 ea Losartan Potassium (Cozaar) 100 mg PO DAILY [facility] Last Admin: 01/16/17 09:42 Dose: 100 mg Mupirocin (Bactroban 2% Nasal) 0.5 gm VIRAJ BID [facility] Last Admin: 01/16/17 09:37 Dose: 0.5 gm Nystatin (Nystop Topical Powder) 1 applic TOP BID [facility] Last Admin: 01/16/17 09:42 Dose: 1 applic Pantoprazole Sodium (Protonix Susp) 40 mg PO DAILY [facility] Last Admin: 01/16/17 09:43 Dose: 40 mg Phenol/Menthol (Phenaseptic 1.4% Throat [place]) 0 ml MT Q2H PRN PRN Reason: Sore Throat Last Admin: 12/24/16 10:54 Dose: 1 spr Trihexyphenidyl HCl (Artane) 2 mg PO Q12 [facility] Last Admin: 01/16/17 09:38 Dose: 2 mg - Labs Labs: 01/16/17 12:15 01/16/17 12:15 PT 13.1 SECONDS (9.7-12.2) H 01/13/17 11:16 INR 1.1 01/13/17 11:16 APTT 28 SECONDS (21-34) 01/13/17 11:16 - Constitutional Appears: No Acute Distress - Head Exam Head Exam: NORMAL INSPECTION - Eye Exam Eye Exam: EOMI, PERRL - ENT Exam ENT Exam: Mucous Membranes Moist, Normal Oropharynx - Respiratory Exam Respiratory Exam: Rhonchi (BASILAR RHONCHI,) - Cardiovascular Exam Cardiovascular Exam: REGULAR RHYTHM, +S1, +S2 - GI/Abdominal Exam GI & Abdominal Exam: Soft, Normal Bowel Sounds (SURGICAL MIDLINE SCAR HEALING. S /P PEG.) - Extremities Exam Extremities Exam: Pedal Edema. absent: Calf Tenderness - Neurological Exam Neurological Exam: Awake, CN II-XII Intact - Psychiatric Exam Psychiatric exam: Flat Affect - Skin Skin Exam: Normal Color, Warm Assessment and Plan (1) Fever Status: Acute (2) Pneumonia Assessment & Plan: DC iv tygacil 50mg ivpb [id number].12/27 X TOTAL OF 21 DAYS. (LAST DAY IN AM. )- on iv avelox 400mg iv od daily 01/02 X TOTAL OF 14 DAYS.off (? ) PT NOTED TO BE ON CIPRO 200IV [id number]. ?? CONTINUE IV CIPRO X 7DAYS. CONTINUE IV FLAGYL 500MG IV Q8HRLY X 7DAYS. MONITOR RENAL FUNCTIONS. PULMONARY TOILET. F/U CXR TO CLEARING . Status: Suspected (3) Small bowel obstruction Status: Acute (4) COPD exacerbation Status: Acute (5) Diabetes mellitus Status: Chronic (6) Hypertension Status: Chronic (7) Anemia Status: Acute
[2017-01-16] MEDS: Lidocaine 5% Patch TD SCH (17:30)
[2017-01-17] MEDS: Albuterol-Ipratrop 3 mg / 0.5 (3 ml) UD INH SCH ×4 (01:12→19:03)
[2017-01-17] MEDS: Ciprofloxacin 200mg/100ml D5W 100 ML IVPB SCH ×2 (04:15→16:24)
[2017-01-17] MEDS: metroNIDAZOLE IV 500 mg/100 ml 500 MG/100 ML BAG IVPB SCH ×3 (06:09→21:36)
[2017-01-17] MEDS: guaiFENesin 200 mg/10 ml Syrup UD NG SCH ×4 (10:33→21:40)
[2017-01-17] MEDS: Pantoprazole 40 mg Susp UD PO SCH (10:33)
[2017-01-17] MEDS: Mupirocin 2% Ointment (NASAL) NAS SCH ×2 (10:33→18:17)
--- NOTE | 2017-01-17 12:13 | CP.PCM.PN ---
Subjective - Date & Time of Evaluation Date of Evaluation: 01/17/17 Time of Evaluation: 12:13 - Subjective Subjective: AFEBRILE. AWAKE RESTING ,COMFORTABLE. FEELING A LOT BETTER 01/10/17 -MRSA SCREEN +VE FAMILY CONCERNED . PT ON BACTOBAN TO NARIS BID Objective - Vital Signs/Intake and Output Vital Signs (last 24 hours): Temp Pulse Resp BP Pulse Ox 99.1 F 84 20 151/75 H 95 01/17/17 08:00 01/17/17 08:00 01/17/17 08:00 01/17/17 08:00 01/17/17 08:00 Intake and Output: 01/17/17 01/17/17 06:59 18:59 Intake Total 1300 Output Total 1150 Balance 150 - Medications Medications: Current Medications Acetaminophen (Tylenol 650mg/20.3ml Solution Ud) 650 mg PO Q6 PRN PRN Reason: Fever >100.4 F Stop: 01/18/17 13:50 Last Admin: 01/15/17 22:00 Dose: 650 mg Albuterol/Ipratropium (Duoneb 3 Mg/0.5 Mg (3 Ml) Ud) 3 ml INH RQ6 [facility] Last Admin: 01/17/17 07:47 Dose: 3 ml Carbidopa/Levodopa (Sinemet) 1 tab PO Q8H [facility] Last Admin: 01/17/17 06:11 Dose: 1 tab Diltiazem HCl (Cardizem) 90 mg PO TID [facility] Last Admin: 01/17/17 10:33 Dose: 90 mg Guaifenesin (Robitussin) 200 mg NG QID [facility] Last Admin: 01/17/17 10:33 Dose: 200 mg Tigecycline 50 mg/ Sodium (Chloride) 100 mls @ 100 mls/hr IVPB Q12H [facility] Stop: 01/18/17 01:00 Last Admin: 01/17/17 02:26 Dose: 100 mls/hr Ciprofloxacin (Cipro 200mg/100ml D5w) 100 mls @ 66.667 mls/hr IVPB Q12H [facility] Last Admin: 01/17/17 04:15 Dose: 66.667 mls/hr Metronidazole (Flagyl) 500 mg in 100 mls @ 100 mls/hr IVPB Q8 [facility] Last Admin: 01/17/17 06:09 Dose: 100 mls/hr Lidocaine (Lidoderm) 1 ea TD 1800 [facility] Last Admin: 01/16/17 17:30 Dose: 1 ea Losartan Potassium (Cozaar) 100 mg PO DAILY [facility] Last Admin: 01/17/17 10:36 Dose: 100 mg Mupirocin (Bactroban 2% Nasal) 0.5 gm VIRAJ BID [facility] Last Admin: 01/17/17 10:33 Dose: 0.5 gm Nystatin (Nystop Topical Powder) 1 applic TOP BID [facility] Last Admin: 01/17/17 10:33 Dose: 1 applic Pantoprazole Sodium (Protonix Susp) 40 mg PO DAILY [facility] Last Admin: 01/17/17 10:33 Dose: 40 mg Phenol/Menthol (Phenaseptic 1.4% Throat [place]) 0 ml MT Q2H PRN PRN Reason: Sore Throat Last Admin: 12/24/16 10:54 Dose: 1 spr Trihexyphenidyl HCl (Artane) 2 mg PO Q12 [facility] Last Admin: 01/17/17 10:36 Dose: 2 mg - Labs Labs: 01/16/17 12:15 01/16/17 12:15 PT 13.1 SECONDS (9.7-12.2) H 01/13/17 11:16 INR 1.1 01/13/17 11:16 APTT 28 SECONDS (21-34) 01/13/17 11:16 - Constitutional Appears: No Acute Distress - Head Exam Head Exam: NORMAL INSPECTION - Eye Exam Eye Exam: EOMI, PERRL - ENT Exam ENT Exam: Mucous Membranes Moist, Normal Oropharynx - Respiratory Exam Respiratory Exam: Rhonchi (OCCASIONAL RHONCHI.) - Cardiovascular Exam Cardiovascular Exam: REGULAR RHYTHM, +S1, +S2 - GI/Abdominal Exam GI & Abdominal Exam: Soft, Normal Bowel Sounds - Extremities Exam Extremities Exam: Pedal Edema. absent: Calf Tenderness - Neurological Exam Neurological Exam: Awake, CN II-XII Intact - Psychiatric Exam Psychiatric exam: Normal Mood - Skin Skin Exam: Normal Color, Warm Assessment and Plan (1) Fever Status: Acute (2) Pneumonia Assessment & Plan: CONTINUE iv TYGACIL 50 MG EVERY 12 HOURLY WHILE IN HOSPITAL. CONTINUE iv CIPRO 200 MG EVERY 12 HOURLY X 7DAYS (01/16/17 ) CONTINUE iv fLAGYL 500 EVERY 8 HOURLY FOR 7 DAYS (01/16/17 ) FOLLOW-UP mrsa SCREEN.ORDERED pULMONARY TOILET. cONTINUE bACTROBAN LOCALLY BOTH NARIS BID X 7DAYS Status: Suspected (3) Small bowel obstruction Status: Acute (4) COPD exacerbation Status: Acute (5) Diabetes mellitus Status: Chronic (6) Hypertension Status: Chronic (7) Anemia Status: Acute
[2017-01-17] MEDS: Lidocaine 5% Patch TD SCH (18:17)
[2017-01-18] MEDS: Albuterol-Ipratrop 3 mg / 0.5 (3 ml) UD INH SCH ×4 (01:03→19:06)
[2017-01-18] MEDS: Ciprofloxacin 200mg/100ml D5W 100 ML IVPB SCH ×2 (04:03→17:04)
--- NOTE | 2017-01-18 04:37 | CP.PCM.PN ---
Subjective - Date & Time of Evaluation Date of Evaluation: 01/17/17 Time of Evaluation: 19:35 - Subjective Subjective: Pt seen and examined, more alert, s/p abdominal surgery, PEG tube feeding going on, she is afebrile, mild leukocytosis Objective - Vital Signs/Intake and Output Vital Signs (last 24 hours): Temp Pulse Resp BP Pulse Ox 99.6 F 82 20 145/70 94 L 01/18/17 00:00 01/18/17 00:00 01/18/17 00:00 01/18/17 00:00 01/18/17 00:00 Intake and Output: 01/17/17 01/18/17 18:59 06:59 Intake Total 500 Output Total 500 Balance 0 - Medications Medications: Current Medications Acetaminophen (Tylenol 650mg/20.3ml Solution Ud) 650 mg PO Q6 PRN PRN Reason: Fever >100.4 F Stop: 01/18/17 13:50 Last Admin: 01/15/17 22:00 Dose: 650 mg Albuterol/Ipratropium (Duoneb 3 Mg/0.5 Mg (3 Ml) Ud) 3 ml INH RQ6 [facility] Last Admin: 01/18/17 01:03 Dose: 3 ml Carbidopa/Levodopa (Sinemet) 1 tab PO Q8H [facility] Last Admin: 01/17/17 21:38 Dose: 1 tab Diltiazem HCl (Cardizem) 90 mg PO TID [facility] Last Admin: 01/17/17 18:18 Dose: 90 mg Guaifenesin (Robitussin) 200 mg NG QID [facility] Last Admin: 01/17/17 21:40 Dose: 200 mg Ciprofloxacin (Cipro 200mg/100ml D5w) 100 mls @ 66.667 mls/hr IVPB Q12H [facility] Last Admin: 01/18/17 04:03 Dose: 66.667 mls/hr Metronidazole (Flagyl) 500 mg in 100 mls @ 100 mls/hr IVPB Q8 [facility] Last Admin: 01/17/17 21:36 Dose: 100 mls/hr Tigecycline 50 mg/ Sodium (Chloride) 100 mls @ 100 mls/hr IVPB Q12H [facility] Lidocaine (Lidoderm) 1 ea TD 1800 [facility] Last Admin: 01/17/17 18:17 Dose: 1 ea Losartan Potassium (Cozaar) 100 mg PO DAILY [facility] Last Admin: 01/17/17 10:36 Dose: 100 mg Mupirocin (Bactroban 2% Nasal) 0.5 gm VIRAJ BID [facility] Last Admin: 01/17/17 18:17 Dose: 0.5 gm Nystatin (Nystop Topical Powder) 1 applic TOP BID [facility] Last Admin: 01/17/17 18:18 Dose: 1 applic Pantoprazole Sodium (Protonix Susp) 40 mg PO DAILY [facility] Last Admin: 01/17/17 10:33 Dose: 40 mg Phenol/Menthol (Phenaseptic 1.4% Throat [place]) 0 ml MT Q2H PRN PRN Reason: Sore Throat Last Admin: 12/24/16 10:54 Dose: 1 spr - Labs Labs: 01/16/17 12:15 01/16/17 12:15 PT 13.1 SECONDS (9.7-12.2) H 01/13/17 11:16 INR 1.1 01/13/17 11:16 APTT 28 SECONDS (21-34) 01/13/17 11:16 - Constitutional Appears: No Acute Distress - Head Exam Head Exam: ATRAUMATIC, NORMAL INSPECTION, NORMOCEPHALIC - Eye Exam Eye Exam: EOMI, Normal appearance, PERRL Pupil Exam: NORMAL ACCOMODATION, PERRL - ENT Exam ENT Exam: Mucous Membranes Moist, Normal Exam - Respiratory Exam Respiratory Exam: Clear to Ausculation Bilateral, NORMAL BREATHING PATTERN - Cardiovascular Exam Cardiovascular Exam: REGULAR RHYTHM, +S1, +S2. absent: Murmur - GI/Abdominal Exam GI & Abdominal Exam: Soft, Normal Bowel Sounds. absent: Tenderness Assessment and Plan (1) Abdominal pain Status: Acute (2) Small bowel obstruction Status: Acute (3) Diabetes mellitus Status: Chronic (4) Hypertension Status: Chronic (5) Pneumonia Status: Acute - Assessment and Plan (Free Text) Plan: Pt is for subacute rehab Physical therapy monitor pt continue current medications
[2017-01-18] MEDS: metroNIDAZOLE IV 500 mg/100 ml 500 MG/100 ML BAG IVPB SCH ×3 (06:03→22:10)
--- NOTE | 2017-01-18 08:18 | PN ---
DATE: 01/18/2017 LOCATION: 354, bed A. This is an 86-year-old female post PEG insertion, seen and examined at rounds without significant cli nical changes or reported active bleeding. Tolerating PEG feeding well. No residual, no bleeding, n o resistance. The patient appears to be somewhat more awake and semi-oriented. The entire chart is reviewed including, but not limited to, most recent lab and radiology study resul ts, current and previous medication lists, current and the previous medical events, allergies to medi cation list as well as all the available current and the previous medical record. Case discussed at length with the staff on the floor. The most recent lab results done 2 days ago showed leukocytosis of 16.3 with low hemoglobin 10.3 and low hematocrit 31.0 but with normal platelet count, with mild increase of BUN to 20 with low creatini ne 0.7, with blood glucose level 112 and low calcium 7.6, with low albumin and low total protein. The most recent chest x-ray done 2 days ago, report and films are seen indicative of improving of ___ _ lower lobe infiltrate. PHYSICAL EXAMINATION: GENERAL: An 86-year-old female with low grade temperature of 99.6, respiratory rate 20-22 with blood pressure of 140/72. HEENT: Showed pale, dry oral mucoid membrane. Nonicteric sclerae. LUNGS: A few scattered crepitations. Decreased air entry at bases. HEART: Positive S1 and S2. ABDOMEN: Soft. Bowel sounds are present. PEG tube is in place with well-formed, clean stoma. No e vidence of anterior abdominal wall cellulitis. Bowel sounds are present. EXTREMITIES: Without significant clubbing or cyanosis, but with mild lower extremities edematous carrillo nges. NEUROLOGIC: No reported new or significant neurological deficits, sensory or motor. It has to be mentioned that the MRSA screening turned out to be positive. The patient is still on antibiotic. IMPRESSION: 1. Malnutrition with hypoalbuminemia, hypoproteinemia. 2. Dysphagia. 3. Status post percutaneous endoscopic gastrostomy tube insertion. 4. Reexacerbation of chronic obstructive pulmonary disease. 5. Known history of hypertension. 6. Known history of diabetes mellitus. 7. Peptic ulcer disease. 8. Anemia, most likely secondary to above. 9. Recent history of small-bowel obstruction, treated surgically by Dr. Cano, with status post p artial small-bowel resection with end-to-end anastomosis. 10. Known history of parkinsonian disease. SUGGESTION: 1. Continue current management. 2. Repeat blood cultures x 2 due to the patient's leukocytosis and fever. 3. Repeat chest x-ray. 4. ID followup. 5. Subsequent increase of feeding rate to 50 mL per hour for 6 hours on and 2 hours off. 6. Will follow up closely with you. 7. It has to be mentioned that the case discussed again with the family at the bedside at length. Dorian Slaughter MD cc: 14 TT: 01/18/2017 08:18:07 Confirmation # [id number] Dictation # [id number] mn
[2017-01-18 08:24] LABS: BASO # 0.1 K/uL (0.0-0.2); BASO % 0.7 % (0.0-2.0); EOS # 0.1 K/uL (0.0-0.7); EOS % 0.7 % (0.0-4.0); HEMATOCRIT 29.6 % (34.0-47.0); LYMPH # 3.7 K/uL (1.0-4.3); LYMPH % 26.1 % (20.0-40.0); MEAN CELL VOLUME 82.8 fL (81.0-99.0); MEAN CORPUSCULAR HEMOGLOBIN 26.8 pg (27.0-31.0); MEAN CORPUSCULAR HGB CONC 32.4 g/dL (33.0-37.0); MONO % 7.1 % (0.0-10.0); RED CELL DISTRIBUTION WIDTH 17.3 % (11.5-14.5); WHITE BLOOD COUNT 14.3 K/uL (4.8-10.8)
[2017-01-18 08:43] LABS: CHLORIDE 105 mmol/L (98-107)
[2017-01-18 08:44] LABS: POTASSIUM 3.7 mmol/L (3.6-5.2); SODIUM 136 mmol/L (132-148)
[2017-01-18 08:46] LABS: ALB/GLOB RATIO 0.5 (1.0-2.1); AST/SGOT 15 U/L (14-36); BILIRUBIN,TOTAL 0.6 mg/dL (0.2-1.3); CARBON DIOXIDE 24 mmol/L (22-30); GFR AFRICAN-AMERICAN > 60; TOTAL PROTEIN 5.8 g/dL (6.3-8.3)
[2017-01-18 08:47] LABS: ALKALINE PHOSPHATASE 128 U/L (38-126); ALT/SGPT 14 U/L (9-52); BLOOD UREA NITROGEN 17 mg/dL (7-17); CALCIUM 7.3 mg/dl (8.6-10.4); GLUCOSE,RANDOM 123 mg/dL (65-105)
[2017-01-18 09:14] LABS: CARCINOEMBRYONIC ANTIGEN 4.3 ng/mL (0-3.0)
--- NOTE | 2017-01-18 09:24 | PN ---
DATE: 01/17/2017 LOCATION: 354, bed A. This is an 86-year-old female seen and examined at rounds with the family at the bedside. Case was d iscussed at length with the staff on the floor, and the patient is tolerating PEG feeding well. Appe ared to be more awake, and larger bowel movements as reported by the nursing staff without any report ed active bleeding. Stoma is well-formed, and the wound is clean without residual or resistance. The entire chart is reviewed, including but not limited to the most recent lab and radiology study re sults, current and the previous medication list, current and the previous medical events. LABORATORY DATA: Yesterday labs showed white blood cells elevated to 16.3 with hemoglobin 10.3, cynthia tocrit 31.0 with normal platelet count with BUN 20 and low creatinine. Blood glucose level reported to be 112, calcium low at 7.9. CEA level is 4.1, mildly elevated with low albumin and low total prot ein. Most recent chest x-ray done yesterday showed improvement of the lower lobe infiltrate. PHYSICAL EXAMINATION: GENERAL: An 86-year-old female. VITAL SIGNS: Afebrile with pulse of 80, respiratory rate 20-22, blood pressure 144/72. HEENT: Showed pale, dry oral mucoid membrane. Nonicteric sclerae. LUNGS: Few scattered crepitations, decreased air entry at bases. HEART: Positive S1 and S2. ABDOMEN: Soft. Bowel sounds are present. PEG tube is in place. No evidence of anterior abdominal wall cellulitis. EXTREMITIES: Without significant edema, clubbing, or cyanosis. NEUROLOGIC: No reported new neurologic deficits, sensory or motor. IMPRESSION: 1. Failure to thrive. 2. Hypoalbuminemia and hypoproteinemia. 3. Malnutrition. 4. Status post percutaneous endoscopic gastrostomy tube insertion, stable. 5. Pneumonia by recent history. 6. Recently diagnosed small-bowel ____, treated surgically with partial small-bowel resection. 7. Reexacerbation of chronic obstructive pulmonary disease. 8. Known history of, but not limited to, hypertension, diabetes mellitus. 9. Peptic ulcer disease by recent history. 10. Known history of parkinsonian disease. 11. Known history of hyperlipidemia. 12. Anemia, most likely secondary to chronic disease, no evidence of active bleeding. 13. Cerebrovascular accident by history with dysphagia. SUGGESTION: 1. Overall I agree with your plan. 2. Subsequent increase of feeding rate. 3. Guaiac all the stool daily x 3. 4. Follow up on H and H, and continue Flagyl and Cipro IV ____ the patient's leukocytosis. Further recommendations to follow. Dorian Slaughter MD cc: 14 TT: 01/17/2017 12:18:40 Confirmation # [id number] Dictation # [id number] jn
[2017-01-18] MEDS: Pantoprazole 40 mg Susp UD PO SCH (10:23)
[2017-01-18] MEDS: Mupirocin 2% Ointment (NASAL) NAS SCH ×2 (10:23→18:41)
[2017-01-18] MEDS: guaiFENesin 200 mg/10 ml Syrup UD NG SCH ×4 (10:23→21:20)
[2017-01-18 17:32] VITALS: RESP 20
[2017-01-18] MEDS: Lidocaine 5% Patch TD SCH (18:41)
--- NOTE | 2017-01-18 22:47 | CP.PCM.PN ---
Subjective - Date & Time of Evaluation Date of Evaluation: 01/18/17 Time of Evaluation: 09:20 - Subjective Subjective: Pt seen and examined, pending availability of bed in [facility] Objective - Vital Signs/Intake and Output Vital Signs (last 24 hours): Temp Pulse Resp BP Pulse Ox 97.7 F 78 20 157/83 H 94 L 01/18/17 17:30 01/18/17 18:49 01/18/17 17:30 01/18/17 18:49 01/18/17 17:30 Intake and Output: 01/18/17 01/19/17 18:59 06:59 Intake Total 450 Output Total 300 Balance 150 - Medications Medications: Current Medications Acetaminophen (Tylenol 650mg/20.3ml Solution Ud) 650 mg PO Q4 PRN PRN Reason: pain Albuterol/Ipratropium (Duoneb 3 Mg/0.5 Mg (3 Ml) Ud) 3 ml INH RQ6 [facility] Last Admin: 01/18/17 19:06 Dose: 3 ml Carbidopa/Levodopa (Sinemet) 1 tab PO Q8H [facility] Last Admin: 01/18/17 21:20 Dose: 1 tab Diltiazem HCl (Cardizem) 90 mg PO TID [facility] Last Admin: 01/18/17 18:40 Dose: 90 mg Enoxaparin Sodium (Lovenox) 40 mg SC DAILY [facility] Guaifenesin (Robitussin) 200 mg NG QID [facility] Last Admin: 01/18/17 21:20 Dose: 200 mg Ciprofloxacin (Cipro 200mg/100ml D5w) 100 mls @ 66.667 mls/hr IVPB Q12H [facility] Last Admin: 01/18/17 17:04 Dose: 66.667 mls/hr Metronidazole (Flagyl) 500 mg in 100 mls @ 100 mls/hr IVPB Q8 [facility] Last Admin: 01/18/17 22:10 Dose: 100 mls/hr Tigecycline 50 mg/ Sodium (Chloride) 100 mls @ 100 mls/hr IVPB Q12H [facility] Last Admin: 01/18/17 21:20 Dose: 100 mls/hr Lidocaine (Lidoderm) 1 ea TD 1800 [facility] Last Admin: 01/18/17 18:41 Dose: 1 ea Losartan Potassium (Cozaar) 100 mg PO DAILY [facility] Last Admin: 01/18/17 10:23 Dose: 100 mg Mupirocin (Bactroban 2% Nasal) 0.5 gm VIRAJ BID [facility] Last Admin: 01/18/17 18:41 Dose: 0.5 gm Nystatin (Nystop Topical Powder) 1 applic TOP BID [facility] Last Admin: 01/18/17 21:20 Dose: 1 applic Pantoprazole Sodium (Protonix Susp) 40 mg PO DAILY [facility] Last Admin: 01/18/17 10:23 Dose: 40 mg Phenol/Menthol (Phenaseptic 1.4% Throat [place]) 0 ml MT Q2H PRN PRN Reason: Sore Throat Last Admin: 12/24/16 10:54 Dose: 1 spr - Labs Labs: 01/18/17 08:21 01/18/17 08:21 PT 13.1 SECONDS (9.7-12.2) H 01/13/17 11:16 INR 1.1 01/13/17 11:16 APTT 28 SECONDS (21-34) 01/13/17 11:16 - Constitutional Appears: No Acute Distress - Head Exam Head Exam: ATRAUMATIC, NORMAL INSPECTION, NORMOCEPHALIC - Eye Exam Eye Exam: EOMI, Normal appearance, PERRL Pupil Exam: NORMAL ACCOMODATION, PERRL - Respiratory Exam Respiratory Exam: Decreased Breath Sounds, Rales, Rhonchi - Cardiovascular Exam Cardiovascular Exam: REGULAR RHYTHM, +S1, +S2. absent: Murmur - GI/Abdominal Exam GI & Abdominal Exam: Soft, Normal Bowel Sounds. absent: Tenderness Assessment and Plan (1) Abdominal pain Status: Acute (2) Small bowel obstruction Status: Acute (3) Diabetes mellitus Status: Chronic (4) Hypertension Status: Chronic (5) Pneumonia Status: Acute
--- NOTE | 2017-01-18 22:52 | CP.PCM.PN ---
Subjective - Date & Time of Evaluation Date of Evaluation: 01/18/17 Time of Evaluation: 22:52 - Subjective Subjective: AFEBRILE ON G-TUBE FEEDINGS ON NASAL OXYGEN. STILL WEAK. fAMILY AT BEDSIDE WBC 16.3 HIGH H/H STABLE MRSA SCREEN REPEAT PENDING. CASE DISCUSSED WITH THE STAFF Objective - Vital Signs/Intake and Output Vital Signs (last 24 hours): Temp Pulse Resp BP Pulse Ox 97.7 F 78 20 157/83 H 94 L 01/18/17 17:30 01/18/17 18:49 01/18/17 17:30 01/18/17 18:49 01/18/17 17:30 Intake and Output: 01/18/17 01/19/17 18:59 06:59 Intake Total 450 Output Total 300 Balance 150 - Medications Medications: Current Medications Acetaminophen (Tylenol 650mg/20.3ml Solution Ud) 650 mg PO Q4 PRN PRN Reason: pain Albuterol/Ipratropium (Duoneb 3 Mg/0.5 Mg (3 Ml) Ud) 3 ml INH RQ6 [facility] Last Admin: 01/18/17 19:06 Dose: 3 ml Carbidopa/Levodopa (Sinemet) 1 tab PO Q8H [facility] Last Admin: 01/18/17 21:20 Dose: 1 tab Diltiazem HCl (Cardizem) 90 mg PO TID [facility] Last Admin: 01/18/17 18:40 Dose: 90 mg Enoxaparin Sodium (Lovenox) 40 mg SC DAILY [facility] Guaifenesin (Robitussin) 200 mg NG QID [facility] Last Admin: 01/18/17 21:20 Dose: 200 mg Ciprofloxacin (Cipro 200mg/100ml D5w) 100 mls @ 66.667 mls/hr IVPB Q12H [facility] Last Admin: 01/18/17 17:04 Dose: 66.667 mls/hr Metronidazole (Flagyl) 500 mg in 100 mls @ 100 mls/hr IVPB Q8 [facility] Last Admin: 01/18/17 22:10 Dose: 100 mls/hr Tigecycline 50 mg/ Sodium (Chloride) 100 mls @ 100 mls/hr IVPB Q12H [facility] Last Admin: 01/18/17 21:20 Dose: 100 mls/hr Lidocaine (Lidoderm) 1 ea TD 1800 [facility] Last Admin: 01/18/17 18:41 Dose: 1 ea Losartan Potassium (Cozaar) 100 mg PO DAILY [facility] Last Admin: 01/18/17 10:23 Dose: 100 mg Mupirocin (Bactroban 2% Nasal) 0.5 gm VIRAJ BID [facility] Last Admin: 01/18/17 18:41 Dose: 0.5 gm Nystatin (Nystop Topical Powder) 1 applic TOP BID [facility] Last Admin: 01/18/17 21:20 Dose: 1 applic Pantoprazole Sodium (Protonix Susp) 40 mg PO DAILY [facility] Last Admin: 01/18/17 10:23 Dose: 40 mg Phenol/Menthol (Phenaseptic 1.4% Throat [place]) 0 ml MT Q2H PRN PRN Reason: Sore Throat Last Admin: 12/24/16 10:54 Dose: 1 spr - Labs Labs: 01/18/17 08:21 01/18/17 08:21 PT 13.1 SECONDS (9.7-12.2) H 01/13/17 11:16 INR 1.1 01/13/17 11:16 APTT 28 SECONDS (21-34) 01/13/17 11:16 - Constitutional Appears: No Acute Distress - Head Exam Head Exam: NORMAL INSPECTION - Eye Exam Eye Exam: EOMI, PERRL - ENT Exam ENT Exam: Normal Oropharynx - Neck Exam Neck Exam: Normal Inspection - Respiratory Exam Respiratory Exam: Rhonchi (BILATERAL.) - Cardiovascular Exam Cardiovascular Exam: REGULAR RHYTHM, +S1, +S2 - GI/Abdominal Exam GI & Abdominal Exam: Soft, Normal Bowel Sounds. absent: Tenderness ([employer].) - Extremities Exam Extremities Exam: Normal Capillary Refill, Pedal Edema. absent: Calf Tenderness - Neurological Exam Neurological Exam: Awake, CN II-XII Intact, Oriented x3 - Skin Skin Exam: Normal Color, Warm Assessment and Plan (1) Fever Status: Acute (2) Pneumonia Assessment & Plan: CONTINUE iv TYGACIL 50 MG EVERY 12 HOURLY WHILE IN HOSPITAL. CONTINUE iv CIPRO 200 MG EVERY 12 HOURLY X 7DAYS (01/16/17 ) CONTINUE iv FLAGYL 500 EVERY 8 HOURLY FOR 7 DAYS (01/16/17 ) FOLLOW-UP MRSA SCREEN.ORDERED pULMONARY TOILET. CONTINUE BACTROBAN LOCALLY BOTH NARIS BID X 7DAYS Status: Suspected (3) Small bowel obstruction Status: Acute (4) COPD exacerbation Status: Acute (5) Diabetes mellitus Status: Chronic (6) Hypertension Status: Chronic (7) Anemia Status: Acute
[2017-01-18] MEDS: Acetaminophen 650mg/20.3ml solution UD PO PRN (22:53)
[2017-01-19] MEDS: Albuterol-Ipratrop 3 mg / 0.5 (3 ml) UD INH SCH ×3 (01:35→13:06)
[2017-01-19] MEDS: Ciprofloxacin 200mg/100ml D5W 100 ML IVPB SCH ×2 (03:03→15:32)
[2017-01-19] MEDS: Acetaminophen 650mg/20.3ml solution UD PO PRN ×2 (05:57→14:18)
[2017-01-19] MEDS: metroNIDAZOLE IV 500 mg/100 ml 500 MG/100 ML BAG IVPB SCH ×2 (05:58→14:03)
[2017-01-19 07:55] VITALS: PULSE 76
[2017-01-19] MEDS: Mupirocin 2% Ointment (NASAL) NAS SCH (09:58)
[2017-01-19] MEDS ORDERED: Enoxaparin 40 mg Syringe SC SCH (10:00)
[2017-01-19] MEDS: guaiFENesin 200 mg/10 ml Syrup UD NG SCH ×2 (10:00→14:04)
[2017-01-19] MEDS: Pantoprazole 40 mg Susp UD PO SCH (10:00)
--- NOTE | 2017-01-19 10:10 | CP.PCM.PN ---
Subjective - Date & Time of Evaluation Date of Evaluation: 01/19/17 Time of Evaluation: 10:00 - Subjective Subjective: AFEBRILE ON G-TUBE FEEDINGS ON NASAL OXYGEN. STILL WEAK. fAMILY AT BEDSIDE WBC -IMPROVING MRSA SCREEN REPEAT +VE CASE DISCUSSED WITH THE STAFF Objective - Vital Signs/Intake and Output Vital Signs (last 24 hours): Temp Pulse Resp BP Pulse Ox 98.1 F 76 20 151/70 H 96 01/19/17 07:52 01/19/17 07:52 01/19/17 07:52 01/19/17 07:52 01/19/17 07:52 Intake and Output: 01/19/17 01/19/17 06:59 18:59 Intake Total 780 600 Output Total 250 Balance 530 600 - Medications Medications: Current Medications Acetaminophen (Tylenol 650mg/20.3ml Solution Ud) 650 mg PO Q4 PRN PRN Reason: pain Last Admin: 01/19/17 05:57 Dose: 650 mg Albuterol/Ipratropium (Duoneb 3 Mg/0.5 Mg (3 Ml) Ud) 3 ml INH RQ6 [facility] Last Admin: 01/19/17 07:55 Dose: 3 ml Carbidopa/Levodopa (Sinemet) 1 tab PO Q8H [facility] Last Admin: 01/19/17 05:57 Dose: 1 tab Diltiazem HCl (Cardizem) 90 mg PO TID [facility] Last Admin: 01/19/17 09:58 Dose: 90 mg Enoxaparin Sodium (Lovenox) 40 mg SC DAILY [facility] Last Admin: 01/19/17 09:59 Dose: 40 mg Guaifenesin (Robitussin) 200 mg NG QID [facility] Last Admin: 01/19/17 10:00 Dose: 200 mg Ciprofloxacin (Cipro 200mg/100ml D5w) 100 mls @ 66.667 mls/hr IVPB Q12H [facility] Last Admin: 01/19/17 03:03 Dose: 66.667 mls/hr Metronidazole (Flagyl) 500 mg in 100 mls @ 100 mls/hr IVPB Q8 [facility] Last Admin: 01/19/17 05:58 Dose: 100 mls/hr Tigecycline 50 mg/ Sodium (Chloride) 100 mls @ 100 mls/hr IVPB Q12H [facility] Last Admin: 01/18/17 21:20 Dose: 100 mls/hr Lidocaine (Lidoderm) 1 ea TD 1800 [facility] Last Admin: 01/18/17 18:41 Dose: 1 ea Losartan Potassium (Cozaar) 100 mg PO DAILY [facility] Last Admin: 01/19/17 09:59 Dose: 100 mg Mupirocin (Bactroban 2% Nasal) 0.5 gm VIRAJ BID [facility] Last Admin: 01/19/17 09:58 Dose: 0.5 gm Nystatin (Nystop Topical Powder) 1 applic TOP BID [facility] Last Admin: 01/19/17 10:01 Dose: 1 applic Pantoprazole Sodium (Protonix Susp) 40 mg PO DAILY [facility] Last Admin: 01/19/17 10:00 Dose: 40 mg Phenol/Menthol (Phenaseptic 1.4% Throat [place]) 0 ml MT Q2H PRN PRN Reason: Sore Throat Last Admin: 12/24/16 10:54 Dose: 1 spr - Labs Labs: 01/18/17 08:21 01/18/17 08:21 PT 13.1 SECONDS (9.7-12.2) H 01/13/17 11:16 INR 1.1 01/13/17 11:16 APTT 28 SECONDS (21-34) 01/13/17 11:16 - Constitutional Appears: No Acute Distress, Chronically Ill - Head Exam Head Exam: ATRAUMATIC, NORMAL INSPECTION, NORMOCEPHALIC - Eye Exam Eye Exam: EOMI, Normal appearance, PERRL Pupil Exam: NORMAL ACCOMODATION, PERRL - Respiratory Exam Respiratory Exam: Clear to Ausculation Bilateral, NORMAL BREATHING PATTERN - Cardiovascular Exam Cardiovascular Exam: REGULAR RHYTHM, +S1, +S2. absent: Murmur - GI/Abdominal Exam GI & Abdominal Exam: Soft, Normal Bowel Sounds. absent: Tenderness - Rectal Exam Rectal Exam: Deferred Assessment and Plan (1) Abdominal pain Status: Acute (2) Small bowel obstruction Status: Acute (3) Diabetes mellitus Status: Chronic (4) Hypertension Status: Chronic (5) Pneumonia Status: Acute
--- NOTE | 2017-01-19 12:55 | PN ---
DATE: 01/19/2017 LOCATION: 354, bed A. This is an 86-year-old female, seen and examined in rounds without significant clinical changes, tole rating PEG feeding well. No reported residual, bleeding or resistance. The entire chart is reviewed including, but not limited to, the most recent lab and radiology study r esults, current and previous medication lists, current and previous medical events. Case discussed w ith the staff on the floor at length. Most recent lab results showed white blood cells of 14.3, hemoglobin low 9.6, hematocrit 29.6 with in creased blood glucose level 123 with low albumin and low total protein. CEA level is still elevated 4.3. PHYSICAL EXAMINATION: GENERAL: An 86-year-old female, seen in rounds in the presence of the family at the bedside. VITAL SIGNS: Afebrile with heart rate of 80, respiratory rate 20-22, blood pressure of 148/68. HEENT: Showed pale, dry oral mucoid membrane. Nonicteric sclerae. LUNGS: Few scattered crepitation, decreased air entry at bases. HEART: Positive S1 and S2. ABDOMEN: Soft. Bowel sounds are present. No mass or organomegaly. No rebound tenderness or guardi ng. EXTREMITIES: Without significant edema, clubbing or cyanosis. NEUROLOGIC: No new reported neurological deficits, sensory or motor. However, patient appeared to b e somewhat more alert, clinically improved. IMPRESSION: 1. Malnutrition. 2. Failure to thrive. 3. Status post partial bowel obstruction, treated surgically. 4. Status post percutaneous endoscopic gastrostomy insertion. 5. Hypoalbuminemia, hypoproteinemia. 6. Known history of chronic obstructive pulmonary disease. 7. Known history of, but not limited to, diabetes mellitus, hypertension, peptic ulcer disease. 8. Known history of hyperlipidemia. 9. Parkinsonian disease by history. 10. Anemia, secondary to above. 11. Known history of cerebrovascular accident with dysphagia. SUGGESTION: 1. Continue current management. 2. Adjust PEG feeding with subsequent increase of rate. Dorian Slaughter MD cc: 14 TT: 01/19/2017 12:54:43 Confirmation # [id number] Dictation # [id number]
--- NOTE | 2017-01-19 13:16 | CP.PCM.PN ---
Subjective - Date & Time of Evaluation Date of Evaluation: 01/19/17 Time of Evaluation: 13:16 - Subjective Subjective: AFEBRILE ON G-TUBE FEEDINGS ON NASAL OXYGEN. STILL WEAK. fAMILY AT BEDSIDE WBC -IMPROVING MRSA SCREEN REPEAT +VE CASE DISCUSSED WITH THE STAFF Objective - Vital Signs/Intake and Output Vital Signs (last 24 hours): Temp Pulse Resp BP Pulse Ox 98.1 F 76 20 151/70 H 96 01/19/17 07:52 01/19/17 07:52 01/19/17 07:52 01/19/17 07:52 01/19/17 07:52 Intake and Output: 01/19/17 01/19/17 06:59 18:59 Intake Total 780 600 Output Total 250 Balance 530 600 - Medications Medications: Current Medications Acetaminophen (Tylenol 650mg/20.3ml Solution Ud) 650 mg PO Q4 PRN PRN Reason: pain Last Admin: 01/19/17 05:57 Dose: 650 mg Albuterol/Ipratropium (Duoneb 3 Mg/0.5 Mg (3 Ml) Ud) 3 ml INH RQ6 [facility] TO [facility] Last Admin: 01/19/17 13:06 Dose: 3 ml Carbidopa/Levodopa (Sinemet) 1 tab PO Q8H [facility] Last Admin: 01/19/17 05:57 Dose: 1 tab Diltiazem HCl (Cardizem) 90 mg PO TID [facility] Last Admin: 01/19/17 09:58 Dose: 90 mg Enoxaparin Sodium (Lovenox) 40 mg SC DAILY [facility] Last Admin: 01/19/17 09:59 Dose: 40 mg Guaifenesin (Robitussin) 200 mg NG QID [facility] Last Admin: 01/19/17 10:00 Dose: 200 mg Ciprofloxacin (Cipro 200mg/100ml D5w) 100 mls @ 66.667 mls/hr IVPB Q12H [facility] Last Admin: 01/19/17 03:03 Dose: 66.667 mls/hr Metronidazole (Flagyl) 500 mg in 100 mls @ 100 mls/hr IVPB Q8 [facility] Last Admin: 01/19/17 05:58 Dose: 100 mls/hr Tigecycline 50 mg/ Sodium (Chloride) 100 mls @ 100 mls/hr IVPB Q12H [facility] Last Admin: 01/19/17 11:15 Dose: 100 mls/hr Lidocaine (Lidoderm) 1 ea TD 1800 [facility] Last Admin: 01/18/17 18:41 Dose: 1 ea Losartan Potassium (Cozaar) 100 mg PO DAILY [facility] Last Admin: 01/19/17 09:59 Dose: 100 mg Mupirocin (Bactroban 2% Nasal) 0.5 gm VIRAJ BID [facility] Last Admin: 01/19/17 09:58 Dose: 0.5 gm Nystatin (Nystop Topical Powder) 1 applic TOP BID [facility] Last Admin: 01/19/17 10:01 Dose: 1 applic Pantoprazole Sodium (Protonix Susp) 40 mg PO DAILY [facility] Last Admin: 01/19/17 10:00 Dose: 40 mg Phenol/Menthol (Phenaseptic 1.4% Throat [place]) 0 ml MT Q2H PRN PRN Reason: Sore Throat Last Admin: 12/24/16 10:54 Dose: 1 spr - Labs Labs: 01/18/17 08:21 01/18/17 08:21 PT 13.1 SECONDS (9.7-12.2) H 01/13/17 11:16 INR 1.1 01/13/17 11:16 APTT 28 SECONDS (21-34) 01/13/17 11:16 - Constitutional Appears: No Acute Distress - Head Exam Head Exam: NORMAL INSPECTION - Eye Exam Eye Exam: EOMI, PERRL - ENT Exam ENT Exam: Mucous Membranes Moist - Neck Exam Neck Exam: Normal Inspection - Respiratory Exam Respiratory Exam: Rhonchi (FEW RHONCHI B/L.) - GI/Abdominal Exam GI & Abdominal Exam: Soft, Normal Bowel Sounds (PEG SITE OK.) - Extremities Exam Extremities Exam: Pedal Edema. absent: Calf Tenderness - Neurological Exam Neurological Exam: Awake, CN II-XII Intact, Oriented x3 - Psychiatric Exam Psychiatric exam: Normal Mood - Skin Skin Exam: Normal Color, Warm Assessment and Plan (1) Fever Status: Acute (2) Pneumonia Assessment & Plan: DC IV TYGACIL . PT FOR ANDREEA TODAY. CONTINUE iv CIPRO 200 MG EVERY 12 HOURLY X 7DAYS (01/16/17 ) CONTINUE iv FLAGYL 500 EVERY 8 HOURLY FOR 7 DAYS (01/16/17 ) pULMONARY TOILET. CONTINUE BACTROBAN LOCALLY BOTH NARIS BID X 7DAYS Status: Suspected (3) Small bowel obstruction Status: Acute (4) COPD exacerbation Status: Acute (5) Diabetes mellitus Status: Chronic (6) Hypertension Status: Chronic (7) Anemia Status: Acute
[2017-01-19 16:45] VITALS: BP 114/66; TEMP 97.7; O2SAT 95
--- NOTE | 2017-01-19 17:15 | PCM.HF ---
Heart Failure Core Measure - Heart Failure Ejection Fraction: 40 % or Greater (EF 65-70%) [place] Inhibitor Prescribed: No Contraindication/Reason for not providing: on ARB Beta-Faheem Prescribed: None Contraindication/Reason for not providing: COPD Angiotensin II Receptor Faheem Prescribed: Yes AnticoagulationTherapy for Atrial Fibrillation/Atrialflutter: No Contraindication/Reason for not providing: no afib Aldosterone Antagonist Prescribed: No Contraindication/Reason for not providing: BP controlled Hydralazine Nitrate Prescribed: No Contraindication/Reason for not providing: ON CALCIUM CHANNEL FAHEEM Implantable Cardioverter Defibrillator Therapy: No Contraindication/Reason for not providing: EF >40% Cardiac Resynchronization Therapy Prescribed: No Contraindication/Reason for not providing: not indicated - Follow up Will be discharged to: Nursing Home Facility ([facility]
--- NOTE | 2017-01-19 17:22 | CP.PCM.PN ---
Subjective - Date & Time of Evaluation Date of Evaluation: 01/19/17 Time of Evaluation: 11:00 - Subjective Subjective: awake, alert, out on chair, no acute distress. Objective - Vital Signs/Intake and Output Vital Signs (last 24 hours): Temp Pulse Resp BP Pulse Ox 97.7 F 76 20 114/66 95 01/19/17 16:00 01/19/17 16:00 01/19/17 16:00 01/19/17 16:00 01/19/17 16:00 Intake and Output: 01/19/17 01/19/17 06:59 18:59 Intake Total 780 1240 Output Total 250 Balance 530 1240 - Medications Medications: Current Medications Acetaminophen (Tylenol 650mg/20.3ml Solution Ud) 650 mg PO Q4 PRN PRN Reason: pain Last Admin: 01/19/17 14:18 Dose: 650 mg Albuterol/Ipratropium (Duoneb 3 Mg/0.5 Mg (3 Ml) Ud) 3 ml INH RQ6 [facility] Last Admin: 01/19/17 13:06 Dose: 3 ml Carbidopa/Levodopa (Sinemet) 1 tab PO Q8H [facility] Last Admin: 01/19/17 14:04 Dose: 1 tab Diltiazem HCl (Cardizem) 90 mg PO TID [facility] Last Admin: 01/19/17 14:04 Dose: 90 mg Enoxaparin Sodium (Lovenox) 40 mg SC DAILY [facility] Last Admin: 01/19/17 09:59 Dose: 40 mg Guaifenesin (Robitussin) 200 mg NG QID [facility] Last Admin: 01/19/17 14:04 Dose: 200 mg Ciprofloxacin (Cipro 200mg/100ml D5w) 100 mls @ 66.667 mls/hr IVPB Q12H [facility] Last Admin: 01/19/17 15:32 Dose: 66.667 mls/hr Metronidazole (Flagyl) 500 mg in 100 mls @ 100 mls/hr IVPB Q8 [facility] Last Admin: 01/19/17 14:03 Dose: 100 mls/hr Tigecycline 50 mg/ Sodium (Chloride) 100 mls @ 100 mls/hr IVPB Q12H [facility] Last Admin: 01/19/17 11:15 Dose: 100 mls/hr Lidocaine (Lidoderm) 1 ea TD 1800 [facility] Last Admin: 01/18/17 18:41 Dose: 1 ea Losartan Potassium (Cozaar) 100 mg PO DAILY [facility] Last Admin: 01/19/17 09:59 Dose: 100 mg Mupirocin (Bactroban 2% Nasal) 0.5 gm VIRAJ BID [facility] Last Admin: 01/19/17 09:58 Dose: 0.5 gm Nystatin (Nystop Topical Powder) 1 applic TOP BID [facility] Last Admin: 01/19/17 10:01 Dose: 1 applic Pantoprazole Sodium (Protonix Susp) 40 mg PO DAILY [facility] Last Admin: 01/19/17 10:00 Dose: 40 mg Phenol/Menthol (Phenaseptic 1.4% Throat [place]) 0 ml MT Q2H PRN PRN Reason: Sore Throat Last Admin: 12/24/16 10:54 Dose: 1 spr - Labs Labs: 01/18/17 08:21 01/18/17 08:21 PT 13.1 SECONDS (9.7-12.2) H 01/13/17 11:16 INR 1.1 01/13/17 11:16 APTT 28 SECONDS (21-34) 01/13/17 11:16 Assessment and Plan - Assessment and Plan (Free Text) Assessment: Patient is seen and examined. Out of bed on chair as tolerated, awake, alert, remains weak. D/W DR Santiago, discharge plan to [facility]. Family in agreement. Continue with cipro and flagyl iv as per DR Dyer via PICC line.
--- NOTE | 2017-01-20 18:26 | CP.PCM.DIS ---
Provider - Provider Date of Admission: 12/16/16 12:39 Attending physician: Desmond Santiago MD Time Spent in preparation of Discharge (in minutes): 34 Diagnosis - Discharge Diagnosis (1) Abdominal pain Status: Acute (2) Small bowel obstruction Status: Acute (3) Diabetes mellitus Status: Chronic Priority: Low (4) Hypertension Status: Chronic Priority: Low (5) Pneumonia Status: Acute Hospital Course - Lab Results Lab Results: Micro Results 01/18/17 09:30 Blood Blood Culture - Preliminary NO GROWTH AFTER 48 HOURS 01/18/17 08:00 Blood Blood Culture - Preliminary NO GROWTH AFTER 48 HOURS 01/17/17 06:00 Naris MRSA Culture (Admit) - Final MRSA DETECTED 01/17/17 07:00 Naris MRSA Culture (Admit) - Final MRSA DETECTED 01/08/17 07:00 Naris MRSA Culture (Admit) - Final MRSA DETECTED 01/02/17 18:15 Blood-Venous Blood Culture - Final NO GROWTH AFTER 5 DAYS 01/02/17 18:15 Blood-Venous Gram Stain - Final TEST NOT PERFORMED 01/02/17 18:00 Blood-Venous Blood Culture - Final NO GROWTH AFTER 5 DAYS 01/02/17 18:00 Blood-Venous Gram Stain - Final TEST NOT PERFORMED 01/01/17 20:45 Nose MRSA Culture (Admit) - Final MRSA DETECTED 12/26/16 22:00 Blood Blood Culture - Final NO GROWTH AFTER 5 DAYS 12/26/16 22:00 Blood Gram Stain - Final TEST NOT PERFORMED 12/26/16 22:00 Blood Blood Culture - Final NO GROWTH AFTER 5 DAYS 12/26/16 22:00 Blood Gram Stain - Final TEST NOT PERFORMED 12/25/16 19:00 Blood-Thru Central Line Blood Culture - Final NO GROWTH AFTER 5 DAYS 12/25/16 19:00 Blood-Thru Central Line Gram Stain - Final TEST NOT PERFORMED 12/25/16 19:00 Blood-Thru Central Line Blood Culture - Final NO GROWTH AFTER 5 DAYS 12/25/16 19:00 Blood-Thru Central Line Gram Stain - Final TEST NOT PERFORMED 12/29/16 Unknown Urine,Clean Catch Urine Culture - Final No Growth (<1,000 CFU/ML) 12/25/16 16:41 Urine,Lewis Urine Culture - Final No Growth (<1,000 CFU/ML) 12/24/16 06:00 Nose MRSA Culture - Final MRSA DETECTED 12/25/16 09:00 Naris MRSA Culture - Final MRSA DETECTED 12/21/16 16:25 Abdomen Gram Stain - Final 12/21/16 16:25 Abdomen Wound Culture - Final No Growth 12/21/16 Unknown Naris MRSA Culture (Admit) - Final MRSA NOT DETECTED Most Recent Lab Values WBC 14.3 K/uL (4.8-10.8) H 01/18/17 08:21 RBC 3.58 Mil/uL (3.80-5.20) L 01/18/17 08:21 Hgb 9.6 g/dL (11.0-16.0) L 01/18/17 08:21 Hct 29.6 % (34.0-47.0) L 01/18/17 08:21 MCV 82.8 fL (81.0-99.0) 01/18/17 08:21 MCH 26.8 pg (27.0-31.0) L 01/18/17 08:21 MCHC 32.4 g/dL (33.0-37.0) L 01/18/17 08:21 RDW 17.3 % (11.5-14.5) H 01/18/17 08:21 Plt Count 382 K/uL (130-400) 01/18/17 08:21 MPV 7.0 fL (7.2-11.7) L 01/18/17 08:21 Neut % (Auto) 65.4 % (50.0-75.0) 01/18/17 08:21 Lymph % (Auto) 26.1 % (20.0-40.0) 01/18/17 08:21 Kay % (Auto) 7.1 % (0.0-10.0) 01/18/17 08:21 Eos % (Auto) 0.7 % (0.0-4.0) 01/18/17 08:21 Baso % (Auto) 0.7 % (0.0-2.0) 01/18/17 08:21 Neut # 9.3 K/uL (1.8-7.0) H 01/18/17 08:21 Lymph # 3.7 K/uL (1.0-4.3) 01/18/17 08:21 Kay # 1.0 K/uL (0.0-0.8) H 01/18/17 08:21 Eos # 0.1 K/uL (0.0-0.7) 01/18/17 08:21 Baso # 0.1 K/uL (0.0-0.2) 01/18/17 08:21 Neutrophils % (Manual) 79 % (50-75) H 01/03/17 06:17 Band Neutrophils % 4 % (0-2) H 01/03/17 06:17 Lymphocytes % (Manual) 10 % (20-40) L 01/03/17 06:17 Reactive Lymphs % 1 % (0-0) H 12/30/16 07:12 Monocytes % (Manual) 4 % (0-10) 01/03/17 06:17 Eosinophils % (Manual) 2 % (0-4) 12/30/16 07:12 Metamyelocytes % 2 % (0-0) H 01/03/17 06:17 Myelocytes % 1 % (0-0) H 01/03/17 06:17 Nucleated RBC % 1 % (0-0) H 12/30/16 07:12 Differential Comment 12/26/16 13:20 Platelet Estimate Slightly increased (NORMAL) H 01/03/17 06:17 Large Platelets Present 01/03/17 06:17 Polychromasia Slight 12/23/16 06:31 Hypochromasia (manual) Slight 01/03/17 06:17 Poikilocytosis (manual Slight 12/30/16 07:12 Basophilic Stippling Slight 12/23/16 06:31 Anisocytosis (manual) Slight 01/03/17 06:17 Microcytosis (manual) Slight 12/23/16 06:31 Macrocytosis (manual) Slight 12/22/16 06:02 Spherocytes Slight 12/23/16 06:31 Target Cells Slight 12/25/16 06:25 Tear Drop Cells Slight 12/23/16 06:31 Ovalocytes Slight 01/03/17 06:17 Fabi Cells Slight 12/25/16 06:25 PT 13.1 SECONDS (9.7-12.2) H 01/13/17 11:16 INR 1.1 01/13/17 11:16 APTT 28 SECONDS (21-34) 01/13/17 11:16 Puncture Site Rr 01/02/17 04:20 pCO2 39 mm/Hg (35-45) 01/02/17 04:20 pO2 76 mm/Hg (80-100) L 01/02/17 04:20 HCO3 28.9 mmol/L (21-28) H 01/02/17 04:20 ABG pH 7.48 (7.35-7.45) H 01/02/17 04:20 ABG Total CO2 30.2 mmol/L (22-28) H 01/02/17 04:20 ABG O2 Saturation 97.8 % (95-98) 01/02/17 04:20 ABG Base Excess 5.1 mmol/L (-2.0-3.0) H 01/02/17 04:20 ABG Hemoglobin 10.2 g/dL (11.7-17.4) L 01/02/17 04:20 ABG Carboxyhemoglobin 1.8 % (0.5-1.5) H 01/02/17 04:20 POC ABG HHb (Measured) 2.1 % (0.0-5.0) 01/02/17 04:20 ABG Methemoglobin 1.1 % (0.0-3.0) 01/02/17 04:20 George Test Pos 01/02/17 04:20 VBG pH 7.47 (7.32-7.43) H 01/01/17 20:00 VBG pCO2 34 mmHg (40-60) L 01/01/17 20:00 VBG HCO3 25.4 mmol/L 01/01/17 20:00 VBG O2 Sat (Calc) 73.6 % (40-65) H 01/01/17 20:00 VBG Base Excess 1.5 mmol/L (0.0-2.0) 01/01/17 20:00 A-a O2 Difference 303.0 mm/Hg 01/02/17 04:20 Respiratory Index 4.0 01/02/17 04:20 Hgb O2 Saturation 94.9 % (95.0-98.0) L 01/02/17 04:20 Liter Flow 15.0 01/01/17 17:32 FiO2 60.0 % 01/02/17 04:20 Inspiratory BiPAP 14 01/02/17 04:20 Expiratory BiPAP 7 01/02/17 04:20 Crit Value Called To Anuel reynolds np 01/01/17 17:32 Crit Value Called By Navi jeffrey rrt 01/01/17 17:32 Crit Value Read Back Y 01/01/17 17:32 Blood Gas Notified Time 1739 01/01/17 17:32 Sodium 136 mmol/L (132-148) 01/18/17 08:21 Potassium 3.7 mmol/L (3.6-5.2) 01/18/17 08:21 Chloride 105 mmol/L (98-107) 01/18/17 08:21 Carbon Dioxide 24 mmol/L (22-30) 01/18/17 08:21 Anion Gap 10 (10-20) 01/18/17 08:21 BUN 17 mg/dL (7-17) 01/18/17 08:21 Creatinine 0.6 MG/DL (0.7-1.2) L 01/18/17 08:21 Est GFR ( Amer) > 60 01/18/17 08:21 Est GFR (Non-Af Amer) > 60 01/18/17 08:21 Random Glucose 123 mg/dL (65-105) H 01/18/17 08:21 Calcium 7.3 mg/dl (8.6-10.4) L 01/18/17 08:21 Phosphorus 3.1 mg/dL (2.5-4.5) 01/05/17 06:22 Magnesium 1.8 mg/dL (1.6-2.3) 01/05/17 06:22 Total Bilirubin 0.6 mg/dL (0.2-1.3) 01/18/17 08:21 Direct Bilirubin 0.6 mg/dL (0.0-0.4) H 01/16/17 07:17 AST 15 U/L (14-36) 01/18/17 08:21 ALT 14 U/L (9-52) 01/18/17 08:21 Alkaline Phosphatase 128 U/L (38-126) H 01/18/17 08:21 Troponin I < 0.0120 ng/mL (0.00-0.120) 12/15/16 22:46 Total Protein 5.8 g/dL (6.3-8.3) L 01/18/17 08:21 Albumin 2.0 g/dL (3.5-5.0) L 01/18/17 08:21 Globulin 3.8 gm/dL (2.2-3.9) 01/18/17 08:21 Albumin/Globulin Ratio 0.5 (1.0-2.1) L 01/18/17 08:21 Lipase 127 U/L (23-300) 12/15/16 22:46 Carcinoembryonic Ag 4.3 ng/mL (0-3.0) H 01/18/17 08:21 Procalcitonin 0.99 NG/ML (0.19-0.49) H 01/02/17 06:29 Urine Color Yellow (YELLOW) 12/15/16 23:23 Urine Clarity Hazy (Clear) 12/15/16 23:23 Urine pH 5.0 (5.0-8.0) 12/15/16 23:23 Ur Specific [place] 1.021 (1.003-1.030) 12/15/16 23:23 Urine Protein Negative mg/dL (NEGATIVE) 12/15/16 23:23 Urine Glucose (UA) Normal mg/dL (Normal) 12/15/16 23:23 Urine Ketones Trace mg/dL (NEGATIVE) 12/15/16 23:23 Urine Blood Negative (NEGATIVE) 12/15/16 23:23 Urine Nitrate Negative (NEGATIVE) 12/15/16 23:23 Urine Bilirubin Negative (NEGATIVE) 12/15/16 23:23 Urine Urobilinogen Normal mg/dL (0.2-1.0) 12/15/16 23:23 Ur Leukocyte Esterase 1+ Eve/uL (Negative) H 12/15/16 23:23 Urine WBC (Auto) 15 /hpf (0-5) H 12/15/16 23:23 Urine RBC (Auto) 3 /hpf (0-3) 12/15/16 23:23 Ur Squamous Epith Cells 1 /hpf (0-5) 12/15/16 23:23 Urine Bacteria Rare (<OCC) 12/15/16 23:23 Vancomycin Trough 18.5 ug/mL (5.0-10.0) H 01/05/17 06:47 TB Test (QFT) Nil 0.04 IU/mL 01/03/17 06:17 TB Test Mitogen - Nil 0.03 IU/mL 01/03/17 06:17 TB Test TB - Nil <0.00 IU/mL 01/03/17 06:17 TB Test (QFT) Indeterminate (Negative) H 01/03/17 06:17 Blood Type B NEGATIVE 01/13/17 12:00 Antibody Screen Positive 01/13/17 12:00 Antibody Identification Anti D 12/21/16 13:34 - Hospital Course Hospital Course: Pt is for discharge today to [facility], she is stable, afebrile, Discharge Exam - Head Exam Head Exam: NORMAL INSPECTION - Eye Exam Eye Exam: EOMI, Normal appearance, PERRL Pupil Exam: NORMAL ACCOMODATION, PERRL - Respiratory Exam Respiratory Exam: Decreased Breath Sounds, Rhonchi - Cardiovascular Exam Cardiovascular Exam: +S1, +S2, Systolic Murmur - GI/Abdominal Exam GI & Abdominal Exam: Normal Bowel Sounds Discharge Plan - Discharge Medications Prescriptions: Ciprofloxacin IV [Cipro] 200 mg IV Q12H #14 vial metroNIDAZOLE 500mg/100ml NS [Flagyl 500MG/100ML NS] 500 mg IV Q8H #21 bag - Follow Up Plan Condition: GOOD Disposition: REHAB FACILITY/REHAB UNIT Instructions: Ciprofloxacin (By injection), Heart Failure (DC), Acute Abdominal Pain (DC), Bowel Obstruction (DC) Additional Instructions: please admit patient under Dr. Santiago service- call Dr. Santiago upon patient arrival to the facility Continue medication as per Med. REc. Referrals: Desmond Santiago MD [Staff Provider] -
== END 2017-01-19 18:45 | DRG 329 ==
LOC: C.ER 20:30 → C.3T 12-16 01:35 → OBSVTOIN 12-16 12:39 → C.3T 12-16 18:28 → C.9I 12-21 20:13 → C.5T 12-25 09:28 → C.9I 01-01 20:33 → C.3T 01-08 15:31
PROVIDERS: ADMIT Internal Medicine; ATTEND Internal Medicine
PROC: 0DH68UZ Insertion of Feeding Device into Stomach, Via Natural or Artificial Opening Endoscopic (ICD-10-PCS; 2016-12-16)
PROC: 3E0G76Z Introduction of Nutritional Substance into Upper GI, Via Natural or Artificial Opening (ICD-10-PCS; 2016-12-16)
PROC: 0DJ08ZZ Inspection of Upper Intestinal Tract, Via Natural or Artificial Opening Endoscopic (ICD-10-PCS; 2016-12-16)
PROC: 0DT80ZZ Resection of Small Intestine, Open Approach (ICD-10-PCS; principal; 2016-12-21 14:30)
PROC: 02HV33Z Insertion of Infusion Device into Superior Vena Cava, Percutaneous Approach (ICD-10-PCS; 2016-12-22)
PROC: 5A09457 Assistance with Respiratory Ventilation, 24-96 Consecutive Hours, Continuous Positive Airway Pressure (ICD-10-PCS; 2017-01-01)
PROC: 0CJS8ZZ Inspection of Larynx, Via Natural or Artificial Opening Endoscopic (ICD-10-PCS; 2017-01-11)
DX: K56.69 Other intestinal obstruction (principal); J69.0 Pneumonitis due to inhalation of food and vomit; E46 Unspecified protein-calorie malnutrition; E87.3 Alkalosis; I82.411 Acute embolism and thrombosis of right femoral vein; G20 Parkinson's disease; I48.91 Unspecified atrial fibrillation; F03.90 Unspecified dementia, unspecified severity, without behavioral disturbance, psychotic disturbance, mood disturbance, and anxiety; I11.0 Hypertensive heart disease with heart failure; I50.9 Heart failure, unspecified; K27.9 Peptic ulcer, site unspecified, unspecified as acute or chronic, without hemorrhage or perforation; E77.8 Other disorders of glycoprotein metabolism; J44.9 Chronic obstructive pulmonary disease, unspecified; E11.9 Type 2 diabetes mellitus without complications; K66.0 Peritoneal adhesions (postprocedural) (postinfection); I69.391 Dysphagia following cerebral infarction; D63.8 Anemia in other chronic diseases classified elsewhere; B96.20 Unspecified Escherichia coli [E. coli] as the cause of diseases classified elsewhere; K57.90 Diverticulosis of intestine, part unspecified, without perforation or abscess without bleeding; K20.9 Esophagitis, unspecified; R62.7 Adult failure to thrive; Y95 Nosocomial condition; Z51.5 Encounter for palliative care; Z16.24 Resistance to multiple antibiotics; E78.00 Pure hypercholesterolemia, unspecified; E78.5 Hyperlipidemia, unspecified; R09.02 Hypoxemia; Z86.711 Personal history of pulmonary embolism; Z87.440 Personal history of urinary (tract) infections; Z96.653 Presence of artificial knee joint, bilateral; Z88.0 Allergy status to penicillin; K21.0 Gastro-esophageal reflux disease with esophagitis; K44.9 Diaphragmatic hernia without obstruction or gangrene; K29.00 Acute gastritis without bleeding

== ENCOUNTER 2017-02-04 11:38 | Inpatient (IN) | payer MEDICARE ==
[2017-02-04 14:01] LABS: BASO # 0.2 K/uL (0.0-0.2); BASO % 1.3 % (0.0-2.0); EOS # 0.2 K/uL (0.0-0.7); EOS % 1.7 % (0.0-4.0); HEMOGLOBIN 9.6 g/dL (11.0-16.0); LYMPH # 2.8 K/uL (1.0-4.3); LYMPH % 24.7 % (20.0-40.0); MEAN CELL VOLUME 83.8 fL (81.0-99.0); MEAN CORPUSCULAR HGB CONC 32.3 g/dL (33.0-37.0); MEAN PLATELET VOLUME 6.5 fL (7.2-11.7); MONO # 0.5 K/uL (0.0-0.8); MONO % 4.7 % (0.0-10.0); NEUT # 7.6 K/uL (1.8-7.0); NEUT % 67.6 % (50.0-75.0); NRBC % 0.1 % (0.0-2.0); RBC 3.57 Mil/uL (3.80-5.20); RED CELL DISTRIBUTION WIDTH 17.8 % (11.5-14.5); WHITE BLOOD COUNT 11.3 K/uL (4.8-10.8)
[2017-02-04 14:08] LABS: ALBUMIN 3.3 g/dL (3.5-5.0)
[2017-02-04 14:10] LABS: GFR AFRICAN-AMERICAN > 60; GFR NON-AFRICAN AMERICAN > 60
[2017-02-04 14:11] LABS: ALB/GLOB RATIO 0.7 (1.0-2.1); ALT/SGPT 36 U/L (9-52); AST/SGOT 32 U/L (14-36); BLOOD UREA NITROGEN 27 mg/dL (7-17); CALCIUM 9.7 mg/dl (8.6-10.4)
[2017-02-04] MEDS ORDERED: Sodium Chloride 0.9% 500 ML IV ONE (14:29)
[2017-02-04 15:28] LABS: URINE BILIRUBIN NEGATIVE (NEGATIVE); URINE BLOOD NEGATIVE (NEGATIVE); URINE CLARITY Hazy (Clear); URINE COLOR Yellow (YELLOW); URINE GLUCOSE (UA) NORMAL (Normal); URINE LEUKOCYTE ESTERASE 3+ Leu/uL (Negative); URINE NITRATE NEGATIVE (NEGATIVE); URINE PROTEIN NEGATIVE (NEGATIVE); URINE UROBILINOGEN NORMAL mg/dL (0.2-1.0)
[2017-02-04 15:51] LABS: URINE BACTERIA MANY (<OCC)
[2017-02-04] MEDS ORDERED: Ciprofloxacin 400mg/200ml D5W 400 MG/200 ML BAG IV STA (15:52)
--- NOTE | 2017-02-04 15:52 | C.PDOC ---
History Of Present Illness 86 year old female [facility] clogged PEG tube - nurses unable to flush in [place]. Peg was placed during previous admission by Dr. Slaughter (01/15/17). Hx is per daughter- denies fever, cough, vomiting,diarrhea, abdominal pain, chest pain, SOB. Time Seen by Provider: 02/04/17 11:45 Chief Complaint (Nursing): GI Problem History Per: Patient, Family Onset/Duration Of Symptoms: Hrs Current Symptoms Are (Timing): Still Present Severity: Mild Associated Symptoms: denies: Fever, Nausea, Vomiting, Diarrhea, Chest Pain, Other (Cough) Recent travel outside of the [place]: No Abnormal Vaginal Bleeding: No Past Medical History Reviewed: Historical Data, Nursing Documentation, Vital Signs Vital Signs: Last Vital Signs Temp 98.5 F 02/08/17 04:45 Pulse 90 02/08/17 04:45 Resp 20 02/08/17 04:45 BP 144/74 02/08/17 04:45 Pulse Ox 96 02/08/17 04:45 - Medical History PMH: Anemia, Arthritis (hx. back surgery; B/L TKR), CHF (Around 10 yrs ago), COPD, HTN, Hypercholesterolemia, Parkinson's Disease, Pneumonia, Pulmonary Embolism - [facility] Procedures ASSISTANCE WITH RESPIRATORY VENTILATION, 24-96 HRS, CPAP (12/16/16) EXCISION OF DESCENDING COLON, ENDO, DIAGN (11/02/15) EXCISION OF ESOPHAGUS, ENDO, DIAGN (11/02/15) EXCISION OF STOMACH, ENDO, DIAGN (11/02/15) INSERTION OF FEEDING DEVICE INTO STOMACH, ENDO (12/16/16) INSERTION OF INFUSION DEV INTO SUP VENA CAVA, PERC APPROACH (12/16/16) INSPECTION OF LARYNX, ENDO (12/16/16) INSPECTION OF UPPER INTESTINAL TRACT, ENDO (12/16/16) INTRODUCTION OF NUTRITIONAL INTO UP GI, VIA OPENING (12/16/16) RESECTION OF SMALL INTESTINE, OPEN APPROACH (12/16/16) Family History: States: Other Other Family History: noncontributory - Social History Hx Tobacco Use: No Hx Alcohol Use: No Hx Substance Use: No - Immunization History Hx Tetanus Toxoid Vaccination: No Hx Influenza Vaccination: Yes Hx Pneumococcal Vaccination: Yes Review Of Systems Except As Marked, All Systems Reviewed And Found Negative. Constitutional: Negative for: Fever, Chills Cardiovascular: Negative for: Chest Pain Respiratory: Negative for: Shortness of Breath Gastrointestinal: Positive for: Other (clogged feeding peg). Negative for: Nausea, Vomiting, Abdominal Pain, Diarrhea Physical Exam - Physical Exam Appears: Well, Non-toxic, Other (Awake and alert, appears comfortable.) Skin: Normal Color, Warm, Dry, No Rash Head: Normacephalic Oral Mucosa: Moist Cardiovascular: Rhythm Regular Respiratory: No Accessory Muscle Use, No Wheezing, Other (Coarse breath sounds B /L) Gastrointestinal/Abdominal: Bowel Sounds, Soft, No Tenderness, Other (Peg tube at LUQ, no surrounding erythema/discharge) Extremity: Normal ROM, No Pedal Edema, No Deformity ED Course And Treatment - Laboratory Results Result Diagrams: 02/07/17 11:14 02/07/17 11:14 O2 Sat by Pulse Oximetry: 95 (Room air) Pulse Ox Interpretation: Normal - Radiology CXR: Interpreted by Me, Viewed By Me CXR Interpretation: Yes: No Acute Disease. No: Infiltrates Progress Note: Blood work, CXR, UA ordered and reviewed. IV NS bolus ordered. Nurse attempted to flush PEG with no success - PEG recently placed, will need to be adjusted/changed by GI. UA (+) for UTI, IV Ciprofloxacin given. - Physician Consult Information Physician Contacted: Desmond Santiago Outcome Of Conversation: Discussed patient with Dr. Santiago, agrees with observation for PEG replacement, UTI. Disposition - Disposition Disposition: HOSPITALIZED Disposition Time: 15:09 Condition: STABLE - Clinical Impression Clinical Impression: UTI (urinary tract infection), PEG tube malfunction - Scribe Statement The provider has reviewed the documentation as recorded by the Scribe Kyle Duran All medical record entries made by the Scribe were at my direction and personally dictated by me. I have reviewed the chart and agree that the record accurately reflects my personal performance of the history, physical exam, medical decision making, and the department course for this patient. I have also personally directed, reviewed, and agree with the discharge instructions and disposition. Decision To Admit - Pt Status Changed To: Hospital Disposition Of: Observation - . Bed Request Type: Regular Admitting Physician: Desmond Santiago Patient Diagnosis: UTI (urinary tract infection), PEG tube malfunction
[2017-02-04] MEDS ORDERED: Ciprofloxacin 400mg/200ml D5W 400 MG/200 ML BAG IVPB ONE (16:28)
--- NOTE | 2017-02-04 16:53 | RAD ---
PROCEDURE: CHEST RADIOGRAPH, 1 VIEW HISTORY: COUGH COMPARISON: 01/16/2017 FINDINGS: LUNGS: Clear. PLEURA: No pneumothorax or pleural fluid seen. CARDIOVASCULAR: Normal heart size. Right PICC catheter unchanged in position. OSSEOUS STRUCTURES: No significant abnormalities. VISUALIZED UPPER ABDOMEN: Normal. OTHER FINDINGS: None. IMPRESSION: No active disease.
[2017-02-04] MEDS ORDERED: Albuterol-Ipratrop 3 mg / 0.5 (3 ml) UD INH STA (18:51)
[2017-02-04] MEDS ORDERED: Dextrose 5%/0.9% NS 1,000 ML IV ONE (18:52)
[2017-02-04] MEDS ORDERED: Albuterol-Ipratrop 3 mg / 0.5 (3 ml) UD ONE (18:56)
[2017-02-04] MEDS ORDERED: Enoxaparin 40 mg Syringe SC ONE (23:01)
[2017-02-04] MEDS: Nitroglycerin 2% Ointment Foilpak UD TOP SCH (23:24)
[2017-02-04] MEDS: Dextrose 5%/0.45% NS 1,000 ML IV SCH (23:24)
[2017-02-05] MEDS: Nitroglycerin 2% Ointment Foilpak UD TOP SCH ×4 (00:02→17:53)
[2017-02-05] MEDS: (Novolin R) Insulin Human Regular 100 units/ml vial SC SCH ×3 (07:52→23:23)
[2017-02-05] MEDS: Enoxaparin 40 mg Syringe SC SCH (10:15)
[2017-02-05 11:55] LABS: INR 1.1; PROTHROMBIN TIME 12.2 SECONDS (9.7-12.2)
--- NOTE | 2017-02-05 13:15 | PN ---
DATE: 02/05/2017 LOCATION: 657, bed B. This is an 86-year-old female seen and examined for GI consultation on 02/04/2017, as requested by estefany santana admitting MD, in the presence of her family. Re-examined again today in the presence of the [facility] staff as well as the family members without significant clinical changes, with reported malfunction of her PEG tube, with no reported active bleeding. The patient has no oral intake, however. The entire chart is reviewed including, but not limited to, the most recent lab and radiology study r esults, current and previous medication lists, current and the previous medical events, and yesterday labs showed white blood cells of 11.3 with low hemoglobin 9.6, low hematocrit 29.9 with normal plate let count, has normal PT and PTT today, with blood glucose level of 144, but low albumin 3.3. PHYSICAL EXAMINATION: GENERAL: An 86-year-old female. VITAL SIGNS: Afebrile with pulse of 100, respiratory rate 20-22 with blood pressure of 154/76. HEENT: Showed pale, dry oral mucoid membrane. Nonicteric sclerae. LUNGS: A few scattered crepitations. Decreased air entry at bases. HEART: Positive S1 and S2 with increased rate. ABDOMEN: Soft. Bowel sounds are present. 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 EXTREMITIES: Without significant clubbing, cyanosis or edema. NEUROLOGIC: No new reported neurological deficits, sensory or motor. It has to be mentioned that the most recent chest x-ray report is seen with no active disease. IMPRESSION: 1. Percutaneous endoscopic gastrostomy tube malfunction. 2. Dysphagia, failure to thrive, hypoalbuminemia with malnutrition. 3. Past medical history including mainly, but not limited to, hypertension, congestive heart failure , chronic obstructive pulmonary disease, osteoarthritis, hyperlipidemia with parkinsonian disease and history of pulmonary embolus. 4. Anemia, most likely secondary to above. SUGGESTION: 1. Agree with your plan. 2. Will schedule the patient for upper endoscopy with removal of a gastric foreign body then the ins ertion of a new PEG. 3. Proton pump inhibitors IV. 4. Flagyl IV due to the patient's leukocytosis. 5. Will follow up closely with you. Thank you for letting me participate in your patient's case management. Dorian Slaughter MD cc: 14 TT: 02/05/2017 13:14:16 Confirmation # [id number] Dictation # [id number] mn
[2017-02-05] MEDS: metroNIDAZOLE IV 500 mg/100 ml 500 MG/100 ML BAG IVPB SCH ×2 (13:28→23:21)
--- NOTE | 2017-02-05 16:27 | RAD ---
Chest and abdominal series dated 02/05/2017. History: Block the PEG tube. Frontal view of the chest and supine/erect views of the at abdomen performed. . Comparison made with prior chest radiograph dated 02/04/2017. Comparison also made with CT scan abdomen pelvis dated 12/21/2016. Findings: Poor inspiration with low lung volumes, crowded bronchovascular markings and bibasilar atelectasis left greater than right. Possibility of left lower lobe infiltrate could be excluded followup radiographs. Cardiomegaly. No change right-sided PICC line with tip in the SVC. No free air seen under the diaphragmatic surfaces. Re- demonstrated are metallic clips right upper quadrant of the abdomen. In situ IVC filter. PEG tube balloon is seen just to the left of midline in the mid abdomen. No evidence of acute mechanical bowel obstruction Impression: Poor inspiration with low lung volumes, crowded bronchovascular markings and bibasilar atelectasis left greater than right. Possibility of left lower lobe infiltrate could be excluded followup radiographs.. No free air seen under the diaphragmatic surfaces. Re- demonstrated are metallic clips right upper quadrant of the abdomen. In situ IVC filter. PEG tube balloon is seen just to the left of midline in the mid abdomen. No evidence of acute mechanical bowel obstruction
[2017-02-05] MEDS: Albuterol 0.083% Inhal Sol (2.5 mg/3 mL) UD INH SCH (19:56)
--- NOTE | 2017-02-05 22:54 | CP.PCM.HP ---
History of Present Illness - History of Present Illness History of Present Illness: Patient is an 86 year old female who was sent to the ER from group home for a clogged feeding peg. Peg was placed during a previous admission by Dr. Slaughter on 01/15. Hx is per daughter and she denies the patient has fever, cough, vomiting or diarrhea. Present on Admission - Present on Admission Any Indicators Present on Admission: Yes Review of Systems - Review of Systems Systems not reviewed;Unavailable: Acuity of Condition Review of Systems: on peg tube for feeding - Constitutional Constitutional: Lethargy - EENT Eyes: absent: As Per HPI, Blind Spots, Blurred Vision, Change in Vision, Decreased Night Vision, Diplopia, Discharge, Dry Eye, Exophthalmos, Floaters, Irritation, Itchy Eyes, Loss of Peripheral Vision, Pain, Photophobia, Requires Corrective Lenses, Sees Flashes, Spots in Vision, Tunnel Vision, Other Visual Disturbances, Loss of Vision, Other Ears: absent: As Per HPI, Decreased Hearing, Ear Discharge, Ear Pain, Tinnitus, Abnormal Hearing, Disequilibrium, Dizziness, Other Nose/Mouth/Throat: absent: As Per HPI, Epistaxis, Nasal Congestion, Nasal Discharge, Nasal Obstruction, Nasal Trauma, Nose Pain, Post Nasal Drip, Sinus Pain, Sinus Pressure, Bleeding Gums, Change in Voice, Dental Pain, Dry Mouth, Dysphagia, Halitosis, Hoarsness, Lip Swelling, Mouth Lesions, Mouth Pain, Odynophagia, Sore Throat, Throat Swelling, Tongue Swelling, Facial Pain, Neck Pain, Neck Mass, Other - Cardiovascular Cardiovascular: absent: As Per HPI, Acrocyanosis, Chest Pain, Chest Pain at Rest , Chest Pain with Activity, Claudication, Diaphoresis, Dyspnea, Dyspnea on Exertion, Edema, Irregular Heart Rhythm, Pain Radiating to Arm/Neck/Jaw, Leg Edema, Leg Ulcers, Lightheadedness, Orthopnea, Palpitations, Paroxysmal Nocturnal Dyspnea, Pedal Edema, Radiating Pain, Rapid Heart Rate, Slow Heart Rate, Syncope, Other - Respiratory Respiratory: Cough, Dyspnea, Wheezing, Pain with Coughing - Gastrointestinal Gastrointestinal: absent: As Per HPI, Abdominal Pain, Belching, Bloating, Change in Bowel Habits, Change in Stool Character, Coffee Ground Emesis, Constipation, Cramping, Diarrhea, Dyspepsia, Dysphagia, Early Satiety, Excessive Flatus, Fecal Incontinence, Heartburn, Hematemesis, Hematochezia, Loose Stools, Melena, Nausea, Odynophagia, Temesmus, Vomiting, Other - Genitourinary Genitourinary: absent: As Per HPI, Change in Urinary Stream, Difficulty Urinating, Dysuria, Flank Pain, Hematuria, Pyuria, Nocturia, Urinary Incontinence, Urinary Frequency, Urinary Hesitance, Urinary Urgency, Voiding Freq/Small Amts, Freq UTI, Hx Renal/Bladder Calculi, Hx /Renal Surgery, Bladder Distension, Other Past Patient History - Infectious Disease Hx of Infectious Diseases: None - Past Medical History & Family History Past Medical History?: Yes - Past Social History Smoking Status: Never Smoked - CARDIAC Hx Congestive Heart Failure: Yes Hx Hypercholesterolemia: Yes Hx Hypertension: Yes - PULMONARY Hx Chronic Obstructive Pulmonary Disease (COPD): Yes - NEUROLOGICAL Hx Parkinson's Disease: Yes - HEENT Hx Cataracts: Yes (hx, cataract surgery 4 yrs ago) Other/Comment: wear eyeglasses - RENAL Hx Chronic Kidney Disease: No - ENDOCRINE/METABOLIC Hx Diabetes Mellitus Type 2: Yes - HEMATOLOGICAL/ONCOLOGICAL Hx Anemia: Yes Hx Blood Transfusions: Yes Hx Blood Transfusion Reaction: No - INTEGUMENTARY Hx Dermatological Problems: No - MUSCULOSKELETAL/RHEUMATOLOGICAL Hx Falls: No - GASTROINTESTINAL Hx Gastrointestinal Disorders: No - GENITOURINARY/GYNECOLOGICAL Hx Incontinence: Yes Hx Urinary Tract Infection: Yes - PSYCHIATRIC Hx Substance Use: No - SURGICAL HISTORY Hx Cataract Extraction: Yes Hx Cholecystectomy: Yes Hx Joint Replacement: Yes (Bilateral knee replacement) Other/Comment: Back surgery (Bone fusion), Gallbladder surgery, skin graft surgery left leg, green filter placement - ANESTHESIA Hx Anesthesia: Yes Hx Anesthesia Reactions: No Hx Malignant Hyperthermia: No Has any member of the family had a problem w/ anesthesia?: No Meds Allergies/Adverse Reactions: Allergies Allergy/AdvReac Type Severity Reaction Status Date / Time Penicillins Allergy Intermediate Verified 02/04/17 11:59 Physical Exam - Constitutional Appears: No Acute Distress, Confused - Head Exam Head Exam: NORMAL INSPECTION - Eye Exam Eye Exam: EOMI, Normal appearance, PERRL Pupil Exam: NORMAL ACCOMODATION, PERRL - ENT Exam ENT Exam: Mucous Membranes Moist, Normal Exam - Respiratory Exam Respiratory Exam: Clear to Auscultation Bilateral, NORMAL BREATHING PATTERN - Cardiovascular Exam Cardiovascular Exam: REGULAR RHYTHM - GI/Abdominal Exam GI & Abdominal Exam: Normal Bowel Sounds, Soft. absent: Tenderness Results - Vital Signs Recent Vital Signs: Last Vital Signs Temp 98.8 F 02/05/17 15:52 Pulse 93 H 02/05/17 15:52 Resp 20 02/05/17 15:52 BP 176/88 H 02/05/17 15:52 Pulse Ox 96 02/05/17 15:52 - Labs Result Diagrams: 02/04/17 13:56 02/06/17 07:32 Labs: Laboratory Results - last 24 hr 02/05/17 20:58 POC Glucose (mg/dL) 113 H Assessment & Plan (1) COPD (chronic obstructive pulmonary disease) Status: Acute (2) PEG (percutaneous endoscopic gastrostomy) adjustment/replacement/removal Status: Acute (3) Abdominal pain Status: Acute (4) COPD exacerbation Status: Acute Priority: High
--- NOTE | 2017-02-05 22:55 | CP.PCM.PN ---
Subjective - Date & Time of Evaluation Date of Evaluation: 02/05/17 Time of Evaluation: 18:00 - Subjective Subjective: Pt seen & examined, she is not able to swallow, she is for abdominal series, for peg placemnt, she is coughing & wheezing Objective - Vital Signs/Intake and Output Vital Signs (last 24 hours): Temp Pulse Resp BP Pulse Ox 98.8 F 93 H 20 176/88 H 96 02/05/17 15:52 02/05/17 15:52 02/05/17 15:52 02/05/17 15:52 02/05/17 15:52 - Medications Medications: Current Medications Albuterol Sulfate (Albuterol 0.083% Inhal Angie (2.5 Mg/3 Ml) Ud) 2.5 mg INH RQ6 [facility] Last Admin: 02/05/17 19:56 Dose: 2.5 mg Enoxaparin Sodium (Lovenox) 40 mg SC DAILY [facility] Last Admin: 02/05/17 10:15 Dose: 40 mg Dextrose/Sodium Chloride (Dextrose 5%/0.45% Ns 1000 Ml) 1,000 mls @ 50 mls/hr IV .Q20H [facility] Last Admin: 02/04/17 23:24 Dose: 50 mls/hr Metronidazole (Flagyl) 500 mg in 100 mls @ 100 mls/hr IVPB Q8H [facility] Last Admin: 02/05/17 13:28 Dose: 100 mls/hr Insulin Human Regular (Novolin R) 0 unit SC ACHS [facility] PRN Reason: Protocol Last Admin: 02/05/17 17:30 Dose: Not Given Nitroglycerin (Nitro-Bid 2% Oint) 1 ea TOP Q6 [facility] Last Admin: 02/05/17 17:53 Dose: 1 ea Pantoprazole Sodium (Protonix Inj) 40 mg IVP DAILY [facility] Last Admin: 02/05/17 13:27 Dose: 40 mg - Labs Labs: PT 12.2 SECONDS (9.7-12.2) 02/05/17 11:42 INR 1.1 02/05/17 11:42 APTT 21 SECONDS (21-34) 02/05/17 11:42 - Constitutional Appears: No Acute Distress, Cachectic - Eye Exam Eye Exam: EOMI, Normal appearance, PERRL Pupil Exam: NORMAL ACCOMODATION, PERRL - Respiratory Exam Respiratory Exam: Decreased Breath Sounds, Wheezes - Cardiovascular Exam Cardiovascular Exam: Tachycardia, +S1, +S2 - GI/Abdominal Exam GI & Abdominal Exam: Soft, Normal Bowel Sounds. absent: Tenderness Additional comments: peg site is clean, unav\ble to flush the peg - Neurological Exam Neurological Exam: Alert (weak and drowsy but arousable) Assessment and Plan (1) PEG (percutaneous endoscopic gastrostomy) adjustment/replacement/removal Status: Acute (2) COPD (chronic obstructive pulmonary disease) Status: Acute (3) Diabetes mellitus Status: Chronic (4) Hypertension Status: Chronic
[2017-02-05] MEDS: Dextrose 5%/0.45% NS 1,000 ML IV SCH (23:21)
[2017-02-06] MEDS: Nitroglycerin 2% Ointment Foilpak UD TOP SCH ×4 (00:31→17:25)
[2017-02-06] MEDS: Albuterol 0.083% Inhal Sol (2.5 mg/3 mL) UD INH SCH ×4 (01:27→19:29)
[2017-02-06] MEDS: metroNIDAZOLE IV 500 mg/100 ml 500 MG/100 ML BAG IVPB SCH ×3 (05:30→21:46)
[2017-02-06] MEDS: (Novolin R) Insulin Human Regular 100 units/ml vial SC SCH ×4 (07:53→21:46)
[2017-02-06 08:19] LABS: BLOOD UREA NITROGEN 11 mg/dL (7-17); GFR AFRICAN-AMERICAN > 60; GFR NON-AFRICAN AMERICAN > 60
[2017-02-06 08:20] LABS: CALCIUM 9.2 mg/dl (8.6-10.4)
--- NOTE | 2017-02-06 08:47 | CP.PCM.PN ---
Subjective - Date & Time of Evaluation Date of Evaluation: 02/06/17 Time of Evaluation: 08:05 - Subjective Subjective: Pt is seen and evaluated at bedside, peg site is infected with purulent discharge, pt is started on antibiotics Objective - Vital Signs/Intake and Output Vital Signs (last 24 hours): Temp Pulse Resp BP Pulse Ox 98.9 F 100 H 18 126/67 94 L 02/06/17 07:57 02/06/17 07:57 02/06/17 07:57 02/06/17 07:57 02/06/17 07:57 Intake and Output: 02/06/17 02/06/17 06:59 18:59 Intake Total 800 Balance 800 - Medications Medications: Current Medications Albuterol Sulfate (Albuterol 0.083% Inhal Angie (2.5 Mg/3 Ml) Ud) 2.5 mg INH RQ6 [facility] Last Admin: 02/06/17 08:32 Dose: 2.5 mg Enoxaparin Sodium (Lovenox) 40 mg SC DAILY [facility] Last Admin: 02/05/17 10:15 Dose: 40 mg Dextrose/Sodium Chloride (Dextrose 5%/0.45% Ns 1000 Ml) 1,000 mls @ 50 mls/hr IV .Q20H [facility] Last Admin: 02/05/17 23:21 Dose: 50 mls/hr Metronidazole (Flagyl) 500 mg in 100 mls @ 100 mls/hr IVPB Q8H [facility] Last Admin: 02/06/17 05:30 Dose: 100 mls/hr Insulin Human Regular (Novolin R) 0 unit SC ACHS [facility] PRN Reason: Protocol Last Admin: 02/06/17 07:53 Dose: Not Given Nitroglycerin (Nitro-Bid 2% Oint) 1 ea TOP Q6 [facility] Last Admin: 02/06/17 05:34 Dose: Not Given Pantoprazole Sodium (Protonix Inj) 40 mg IVP DAILY [facility] Last Admin: 02/05/17 13:27 Dose: 40 mg - Labs Labs: 02/06/17 07:32 PT 12.2 SECONDS (9.7-12.2) 02/05/17 11:42 INR 1.1 02/05/17 11:42 APTT 21 SECONDS (21-34) 02/05/17 11:42 - Constitutional Appears: No Acute Distress - Head Exam Head Exam: ATRAUMATIC, NORMAL INSPECTION, NORMOCEPHALIC - Eye Exam Eye Exam: EOMI, Normal appearance, PERRL Pupil Exam: NORMAL ACCOMODATION, PERRL - Respiratory Exam Respiratory Exam: Clear to Ausculation Bilateral, NORMAL BREATHING PATTERN - Cardiovascular Exam Cardiovascular Exam: REGULAR RHYTHM, +S1, +S2. absent: Murmur - GI/Abdominal Exam GI & Abdominal Exam: Soft, Normal Bowel Sounds. absent: Tenderness - Neurological Exam Neurological Exam: Alert, Awake, CN II-XII Intact, Normal Gait, Oriented x3 Assessment and Plan (1) PEG (percutaneous endoscopic gastrostomy) adjustment/replacement/removal Assessment & Plan: on wound care antibiotics Status: Acute (2) COPD (chronic obstructive pulmonary disease) Status: Acute (3) Diabetes mellitus Status: Chronic (4) Hypertension Status: Chronic (5) UTI (urinary tract infection) due to Enterococcus Assessment & Plan: zyvox Status: Acute
[2017-02-06] MEDS ORDERED: Propofol 10 mg/ml Inj (20 ML) ONE (09:57)
[2017-02-06] MEDS ORDERED: Bacitracin 500 Units/gm Oint Foilpak UD ONE (10:04)
[2017-02-06] MEDS ORDERED: Lactated Ringer's 500 ML IV ONE (10:15)
[2017-02-06] MEDS: Enoxaparin 40 mg Syringe SC SCH (11:39)
[2017-02-06 12:02] LABS: BASO % 0.5 % (0.0-2.0); EOS # 0.2 K/uL (0.0-0.7); EOS % 2.1 % (0.0-4.0); HEMOGLOBIN 8.5 g/dL (11.0-16.0); LYMPH # 2.7 K/uL (1.0-4.3); LYMPH % 27.3 % (20.0-40.0); MEAN CELL VOLUME 83.5 fL (81.0-99.0); MEAN CORPUSCULAR HGB CONC 32.4 g/dL (33.0-37.0); MEAN PLATELET VOLUME 6.8 fL (7.2-11.7); MONO # 0.6 K/uL (0.0-0.8); MONO % 6.1 % (0.0-10.0); NEUT # 6.2 K/uL (1.8-7.0); NRBC % 0.1 % (0.0-2.0); RBC 3.14 Mil/uL (3.80-5.20); RED CELL DISTRIBUTION WIDTH 17.8 % (11.5-14.5); WHITE BLOOD COUNT 9.7 K/uL (4.8-10.8)
[2017-02-06 13:43] LABS: ALBUMIN 2.7 g/dL (3.5-5.0)
[2017-02-06 13:46] LABS: ALB/GLOB RATIO 0.7 (1.0-2.1); ALT/SGPT 33 U/L (9-52); AST/SGOT 22 U/L (14-36); BLOOD UREA NITROGEN 11 mg/dL (7-17); GFR AFRICAN-AMERICAN > 60; GFR NON-AFRICAN AMERICAN > 60
[2017-02-06 13:47] LABS: CALCIUM 9.1 mg/dl (8.6-10.4)
--- NOTE | 2017-02-06 13:51 | CP.PCM.CON ---
History of Present Illness - History of Present Illness History of Present Illness: INFECTIOUS DISEASE CONSULT; HPI: 85-year-old female with past medical history significant for HTN, diabetes mellitus, hyperlipidemia, arthritis, CHF, COPD exacerbations was recently discharged from [facility] to subacute rehabilitation after a stormy hospital course including exploratory laparotomy 12/21/16 for small bowel obstruction/and removal of BEZOIR, distal small bowel and pneumonia. Patient also underwent PEG insertion on 01/23/17 prior to discharge secondary to inability to swallow. Patient NOW SENT FROM GROUP [facility] TO ER on 02/05/17 as she was found to have a [facility]ged feeding [facility] the [facility]. 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 ) Patient seen today status post removal of G-tube on 02/06/17. As noted by GI notes that the G-tube was seen eroding the gastric mucosa with some drainage at the site. Patient was started on IV Cipro and Flagyl 500 every 8 hourly by GI. History obtained mainly from the chart and the daughter at bedside as patient drowsy after the procedure. CHEST X-RAY ON ADMISSION SHOWED NO ACUTE INFILTRATE AND CLEAR LUNGS. Patient also is allergic to penicillin. PMHx: See HPI PSHx: B/L knee replacement, IVC filter placement, back surgery, cholecystectomy , s/p exploratory laparotomy 12/21/16, PEG insertion 01/23/17. FHx: denies any significant family history Social: Denies Review of Systems - Constitutional Constitutional: Lethargy, Malaise. absent: Chills, Fever - Respiratory Respiratory: Cough - Gastrointestinal Gastrointestinal: absent: Constipation, Diarrhea - Genitourinary Genitourinary: Freq UTI (NO Lr IN PLACE. pATIENT INCONTINENT.) - Hematologic/Lymphatic Hematologic: As Per HPI Past Patient History - Infectious Disease Hx of Infectious Diseases: None - Past Medical History & Family History Past Medical History?: Yes - Past Social History Smoking Status: Never Smoked - CARDIAC Hx Congestive Heart Failure: Yes Hx Hypercholesterolemia: Yes Hx Hypertension: Yes - PULMONARY Hx Chronic Obstructive Pulmonary Disease (COPD): Yes - NEUROLOGICAL Hx Parkinson's Disease: Yes - HEENT Hx Cataracts: Yes (hx, cataract surgery 4 yrs ago) Other/Comment: wear eyeglasses - RENAL Hx Chronic Kidney Disease: No - ENDOCRINE/METABOLIC Hx Diabetes Mellitus Type 2: Yes - HEMATOLOGICAL/ONCOLOGICAL Hx Anemia: Yes Hx Blood Transfusions: Yes Hx Blood Transfusion Reaction: No - INTEGUMENTARY Hx Dermatological Problems: No - MUSCULOSKELETAL/RHEUMATOLOGICAL Hx Arthritis: Yes - GASTROINTESTINAL Hx Gastrointestinal Disorders: No - GENITOURINARY/GYNECOLOGICAL Hx Incontinence: Yes Hx Urinary Tract Infection: Yes - PSYCHIATRIC Hx Substance Use: No - SURGICAL HISTORY Hx Cataract Extraction: Yes Hx Cholecystectomy: Yes Hx Joint Replacement: Yes (Bilateral knee replacement) Other/Comment: Back surgery (Bone fusion), Gallbladder surgery, skin graft surgery left leg, green filter placement - ANESTHESIA Hx Anesthesia: Yes Hx Anesthesia Reactions: No Hx Malignant Hyperthermia: No Has any member of the family had a problem w/ anesthesia?: No Meds Allergies/Adverse Reactions: Allergies Allergy/AdvReac Type Severity Reaction Status Date / Time Penicillins Allergy Intermediate Verified 02/04/17 11:59 - Medications Medications: Current Medications Albuterol Sulfate (Albuterol 0.083% Inhal Angie (2.5 Mg/3 Ml) Ud) 2.5 mg INH RQ6 [facility] Last Admin: 02/06/17 08:32 Dose: 2.5 mg Enoxaparin Sodium (Lovenox) 40 mg SC DAILY [facility] Last Admin: 02/06/17 11:39 Dose: 40 mg Dextrose/Sodium Chloride (Dextrose 5%/0.45% Ns 1000 Ml) 1,000 mls @ 50 mls/hr IV .Q20H [facility] Last Admin: 02/05/17 23:21 Dose: 50 mls/hr Metronidazole (Flagyl) 500 mg in 100 mls @ 100 mls/hr IVPB Q8H [facility] Last Admin: 02/06/17 05:30 Dose: 100 mls/hr Multivitamins/Vitamin C 10 ml/Chromium/Copper/Manganese/Zinc 1 ml/ Amino Acids 1,011 mls @ 60 mls/hr IV .[id number] ONE Stop: 02/07/17 10:50 Chromium/Copper/Manganese/Zinc (1 ml/ Amino Acids) 1,001 mls @ 60 mls/hr IV .[id number] ONE Stop: 02/08/17 03:30 Insulin Human Regular (Novolin R) 0 unit SC ACHS [facility] PRN Reason: Protocol Last Admin: 02/06/17 13:38 Dose: Not Given Nitroglycerin (Nitro-Bid 2% Oint) 1 ea TOP Q6 [facility] Last Admin: 02/06/17 11:39 Dose: 1 ea Pantoprazole Sodium (Protonix Inj) 40 mg IVP DAILY [facility] Last Admin: 02/06/17 11:39 Dose: 40 mg Physical Exam - Constitutional Appears: No Acute Distress - Head Exam Head Exam: NORMAL INSPECTION - Eye Exam Eye Exam: PERRL - ENT Exam ENT Exam: Normal Oropharynx - Neck Exam Neck exam: Positive for: Normal Inspection - Respiratory Exam Respiratory Exam: Clear to Auscultation Bilateral, NORMAL BREATHING PATTERN - Cardiovascular Exam Cardiovascular Exam: REGULAR RHYTHM, +S1, +S2 - GI/Abdominal Exam GI & Abdominal Exam: Normal Bowel Sounds, Soft. absent: Tenderness (S/P PEG REMOVAL. DRESSING IN PLACE.) - Extremities Exam Extremities exam: Positive for: pedal pulses present. Negative for: pedal edema - Neurological Exam Neurological exam: Altered (S/P PEG REMOVAL. DROWSY.) - Skin Skin Exam: Normal Color, Warm Results - Vital Signs Recent Vital Signs: Last Vital Signs Temp 98.9 F 02/06/17 12:10 Pulse 94 H 02/06/17 12:10 Resp 17 02/06/17 12:10 BP 152/71 H 02/06/17 12:10 Pulse Ox 100 02/06/17 12:10 - Labs Result Diagrams: 02/06/17 11:51 02/06/17 13:28 Labs: Laboratory Results - last 24 hr 02/05/17 02/06/17 02/06/17 20:58 06:56 07:32 WBC RBC Hgb Hct MCV MCH MCHC RDW Plt Count MPV Neut % (Auto) Lymph % (Auto) Barron % (Auto) Eos % (Auto) Baso % (Auto) Neut # Lymph # Barron # Eos # Baso # Sodium 138 Potassium 3.3 L Chloride 106 Carbon Dioxide 25 Anion Gap 10 BUN 11 Creatinine 0.6 L Est GFR ( Amer) > 60 Est GFR (Non-Af Amer) > 60 POC Glucose (mg/dL) 113 H 115 H Random Glucose 105 Calcium 9.2 Total Bilirubin AST ALT Alkaline Phosphatase Total Protein Albumin Globulin Albumin/Globulin Ratio 02/06/17 02/06/17 02/06/17 11:51 11:51 13:28 WBC 9.7 RBC 3.14 L Hgb 8.5 L Hct 26.2 L MCV 83.5 MCH 27.0 MCHC 32.4 L RDW 17.8 H Plt Count 323 MPV 6.8 L Neut % (Auto) 64.0 Lymph % (Auto) 27.3 Barron % (Auto) 6.1 Eos % (Auto) 2.1 Baso % (Auto) 0.5 Neut # 6.2 Lymph # 2.7 Barron # 0.6 Eos # 0.2 Baso # 0.0 Sodium 135 Potassium 3.6 Chloride 102 Carbon Dioxide 25 Anion Gap 12 BUN 11 Creatinine 0.6 L Est GFR ( Amer) > 60 Est GFR (Non-Af Amer) > 60 POC Glucose (mg/dL) 143 H Random Glucose 120 H Calcium 9.1 Total Bilirubin 0.5 AST 22 ALT 33 Alkaline Phosphatase 96 Total Protein 6.7 Albumin 2.7 L Globulin 4.0 H Albumin/Globulin Ratio 0.7 L - Imaging and Cardiology Chest x-ray Status: Report reviewed by me (no active disease) Assessment & Plan (1) UTI (urinary tract infection) Assessment and Plan: URINE CULTURE 02/04/17 +VE VRE. START iv zYVOX 600 MG EVERY 12 HOURLY. 02/06/17 Status: Acute (2) PEG (percutaneous endoscopic gastrostomy) adjustment/replacement/removal Assessment and Plan: S/P PEG REMOVAL 02/06/17. PATIENT SEEN POSTOPERATIVELY. DRESSING DRY IN PLACE. Status: Acute (3) Diabetes mellitus Status: Chronic Priority: Low (4) Hypertension Status: Chronic Priority: Low (5) Anemia Assessment and Plan: H/H 8.5/26.2 PLT 323 Status: Acute - Assessment and Plan (Free Text) Plan: PANCULTURES CRP WOUND CULTURE ABDOMEN. START iv ZYVOX 600 MG EVERY 12 HOURLY 02/06/17. CONTINUE iv FLAGYL 500 EVERY 8 HOURLY 02/06/17. CONTINUE iv CIPRO 400 EVERY 12 HOURLY02/06/17. FOLLOW CULTURES TO ADJUST ANTIBIOTICS. CASE DISCUSSED WITH STAFF. MONITOR H/H AND PLATELETS.
[2017-02-06] MEDS: Dextrose 5%/0.45% NS 1,000 ML IV SCH (15:30)
[2017-02-06] MEDS: Linezolid 600 mg in D5W 300 ml 600 MG/300 ML BAG IVPB SCH (17:18)
[2017-02-06] MEDS ORDERED: PPN #1 IV ONE (18:00)
[2017-02-06] MEDS ORDERED: Ciprofloxacin 400mg/200ml D5W 400 MG/200 ML BAG IVPB SCH (19:30)
[2017-02-06] MEDS: Ciprofloxacin 400mg/200ml D5W 400 MG/200 ML BAG IVPB SCH (21:47)
[2017-02-07] MEDS: Nitroglycerin 2% Ointment Foilpak UD TOP SCH ×4 (01:07→18:11)
[2017-02-07] MEDS: Albuterol 0.083% Inhal Sol (2.5 mg/3 mL) UD INH SCH ×4 (01:20→19:24)
[2017-02-07] MEDS: Linezolid 600 mg in D5W 300 ml 600 MG/300 ML BAG IVPB SCH ×2 (02:21→14:37)
[2017-02-07] MEDS: metroNIDAZOLE IV 500 mg/100 ml 500 MG/100 ML BAG IVPB SCH ×3 (06:40→21:58)
[2017-02-07] MEDS: (Novolin R) Insulin Human Regular 100 units/ml vial SC SCH ×4 (08:30→21:59)
[2017-02-07] MEDS: Ciprofloxacin 400mg/200ml D5W 400 MG/200 ML BAG IVPB SCH ×2 (08:55→21:58)
[2017-02-07] MEDS: Enoxaparin 40 mg Syringe SC SCH (09:31)
[2017-02-07] MEDS ORDERED: PPN #2 IV ONE (10:50)
[2017-02-07 11:20] LABS: BASO # 0.1 K/uL (0.0-0.2); BASO % 1.3 % (0.0-2.0); EOS # 0.2 K/uL (0.0-0.7); EOS % 2.9 % (0.0-4.0); HEMOGLOBIN 7.7 g/dL (11.0-16.0); LYMPH # 1.7 K/uL (1.0-4.3); LYMPH % 22.8 % (20.0-40.0); MEAN CELL VOLUME 83.5 fL (81.0-99.0); MEAN CORPUSCULAR HEMOGLOBIN 27.4 pg (27.0-31.0); MEAN CORPUSCULAR HGB CONC 32.8 g/dL (33.0-37.0); MEAN PLATELET VOLUME 6.9 fL (7.2-11.7); MONO # 0.4 K/uL (0.0-0.8); MONO % 5.7 % (0.0-10.0); NEUT # 4.9 K/uL (1.8-7.0); NEUT % 67.3 % (50.0-75.0); RBC 2.81 Mil/uL (3.80-5.20); RED CELL DISTRIBUTION WIDTH 17.5 % (11.5-14.5); WHITE BLOOD COUNT 7.3 K/uL (4.8-10.8)
[2017-02-07 11:35] LABS: ALBUMIN 2.6 g/dL (3.5-5.0)
[2017-02-07 11:38] LABS: ALB/GLOB RATIO 0.7 (1.0-2.1); AST/SGOT 23 U/L (14-36); BLOOD UREA NITROGEN 12 mg/dL (7-17); CALCIUM 8.9 mg/dl (8.6-10.4); GFR AFRICAN-AMERICAN > 60; GFR NON-AFRICAN AMERICAN > 60
[2017-02-07 11:39] LABS: ALT/SGPT 30 U/L (9-52)
[2017-02-07 12:13] LABS: BILIRUBIN,DIRECT 0.5 mg/dL (0.0-0.4)
--- NOTE | 2017-02-07 14:00 | CP.PCM.PN ---
Subjective - Date & Time of Evaluation Date of Evaluation: 02/07/17 Time of Evaluation: 14:00 - Subjective Subjective: CHIEF COMPLAINTS TODAY : TEMP 99.7, arousable But week. s/p PEG removal 02/06/17 Blood culture reported1;2 sets gram-positive cocci ROS. HEENT : N. Resp : No SOB wheezing, cough Cardio : No CP, PND orthopnea GI : No abd. 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 Musculoskel : N Ext. : Pedal pulses intact, no edema or calf pain Derm : N Psych : N. PE. Pt. is alert awake in no distress. V.S As noted in the chart Head ,ear nose,throat and eyes : Normal. Neck : Supple with normal carotids. Lungs: Clear air entry. Heart : S1 & S2 normal . . No murmur. S4 + Abd : Soft non tender with normal bowel sounds.S/P PEG REMOVAL .DRESSING IN PLACE Neuro : Moves all ext. with no localized deficit. Ext : No edema with intact pulses. Neg. calf tenderness Derm : No rashes or decubitus ulcer. Radiology/Labs . wbc 7.3 H/H 7.7/23.5 LOW cREATININE 0.6/bun 12 LFTS -N NORMAL Asssessment : GRAM-POSITIVE BACTEREMIA. 1:2 SETS ( identification pending ) VRE - UROSEPSIS S/P FOLY REMOVAL. ANEMIA. S/P PEG REMOVAL/INFECTED STOMA. D.MELLITUS. HYPERTENSION. Plan : ON iv ZYVOX 600 MG EVERY 12 HOURLY 02/06/17. CONTINUE iv FLAGYL 500 EVERY 8 HOURLY 02/06/17. CONTINUE iv CIPRO 400 EVERY 12 HOURLY02/06/17. FOLLOW CULTURES TO ADJUST ANTIBIOTICS. CASE DISCUSSED WITH STAFF. MONITOR H/H AND PLATELETS. PT FOR PRBC TRANSFUSION. PATIENT FOR REPEAT SWALLOW EVAL PATIENT DOES NOT HAVE A peg TUBE. Objective - Vital Signs/Intake and Output Vital Signs (last 24 hours): Temp Pulse Resp BP Pulse Ox 99.1 F 83 18 156/47 H 97 02/07/17 07:00 02/07/17 07:00 02/07/17 07:00 02/07/17 07:00 02/07/17 07:00 Intake and Output: 02/07/17 02/07/17 06:59 18:59 Intake Total 700 Output Total 0 Balance 700 - Medications Medications: Current Medications Albuterol Sulfate (Albuterol 0.083% Inhal Angie (2.5 Mg/3 Ml) Ud) 2.5 mg INH RQ6 [facility] Last Admin: 02/07/17 07:56 Dose: 2.5 mg Enoxaparin Sodium (Lovenox) 40 mg SC DAILY [facility] Last Admin: 02/07/17 09:31 Dose: 40 mg Metronidazole (Flagyl) 500 mg in 100 mls @ 100 mls/hr IVPB Q8H [facility] Last Admin: 02/07/17 13:07 Dose: 100 mls/hr Chromium/Copper/Manganese/Zinc (1 ml/ Amino Acids) 1,001 mls @ 60 mls/hr IV .[id number] ONE Stop: 02/08/17 03:30 Last Admin: 02/07/17 13:35 Dose: 60 mls/hr Linezolid (Zyvox 600mg/300ml D5w) 600 mg in 300 mls @ 200 mls/hr IVPB Q12H [facility] Last Admin: 02/07/17 02:21 Dose: 200 mls/hr Ciprofloxacin (Cipro 400mg/200ml Dsw) 400 mg in 200 mls @ 133 mls/hr IVPB Q12H [facility] Last Admin: 02/07/17 08:55 Dose: 133 mls/hr Multivitamins/Vitamin C 10 ml/Chromium/Copper/Manganese/Zinc 1 ml/ Amino Acids 1,011 mls @ 60 mls/hr IV .[id number] ONE Stop: 02/08/17 10:50 Chromium/Copper/Manganese/Zinc (1 ml/ Amino Acids) 1,001 mls @ 60 mls/hr IV .[id number] ONE Stop: 02/09/17 03:30 Insulin Human Regular (Novolin R) 0 unit SC ACHS [facility] PRN Reason: Protocol Last Admin: 02/07/17 13:07 Dose: 1 unit Nitroglycerin (Nitro-Bid 2% Oint) 1 ea TOP Q6 [facility] Last Admin: 02/07/17 13:13 Dose: 1 ea Pantoprazole Sodium (Protonix Inj) 40 mg IVP DAILY [facility] Last Admin: 02/07/17 09:30 Dose: 40 mg - Labs Labs: 02/07/17 11:14 02/07/17 11:14 PT 12.2 SECONDS (9.7-12.2) 02/05/17 11:42 INR 1.1 02/05/17 11:42 APTT 21 SECONDS (21-34) 02/05/17 11:42 Assessment and Plan (1) UTI (urinary tract infection) Status: Acute (2) PEG (percutaneous endoscopic gastrostomy) adjustment/replacement/removal Status: Acute (3) Diabetes mellitus Status: Chronic (4) Hypertension Status: Chronic (5) Anemia Status: Acute
[2017-02-07] MEDS ORDERED: PPN #3 IV ONE (18:00)
--- NOTE | 2017-02-07 21:27 | CP.PCM.PN ---
Subjective - Date & Time of Evaluation Date of Evaluation: 02/07/17 Time of Evaluation: 09:00 - Subjective Subjective: Pt seen & examined, on Iv antibiotics Objective - Vital Signs/Intake and Output Vital Signs (last 24 hours): Temp Pulse Resp BP Pulse Ox 98.2 F 84 20 149/75 95 02/07/17 15:32 02/07/17 15:32 02/07/17 15:32 02/07/17 15:32 02/07/17 15:32 Intake and Output: 02/07/17 02/08/17 18:59 06:59 Intake Total 1180 Balance 1180 - Medications Medications: Current Medications Albuterol Sulfate (Albuterol 0.083% Inhal Angie (2.5 Mg/3 Ml) Ud) 2.5 mg INH RQ6 [facility] Last Admin: 02/07/17 19:24 Dose: 2.5 mg Enoxaparin Sodium (Lovenox) 40 mg SC DAILY [facility] Last Admin: 02/07/17 09:31 Dose: 40 mg Furosemide (Lasix) 40 mg IVP ONCE ONE Stop: 02/07/17 22:01 Metronidazole (Flagyl) 500 mg in 100 mls @ 100 mls/hr IVPB Q8H [facility] Last Admin: 02/07/17 13:07 Dose: 100 mls/hr Chromium/Copper/Manganese/Zinc (1 ml/ Amino Acids) 1,001 mls @ 60 mls/hr IV .[id number] ONE Stop: 02/08/17 03:30 Last Admin: 02/07/17 13:35 Dose: 60 mls/hr Linezolid (Zyvox 600mg/300ml D5w) 600 mg in 300 mls @ 200 mls/hr IVPB Q12H [facility] Last Admin: 02/07/17 14:37 Dose: 200 mls/hr Ciprofloxacin (Cipro 400mg/200ml Dsw) 400 mg in 200 mls @ 133 mls/hr IVPB Q12H [facility] Last Admin: 02/07/17 08:55 Dose: 133 mls/hr Multivitamins/Vitamin C 10 ml/Chromium/Copper/Manganese/Zinc 1 ml/ Amino Acids 1,011 mls @ 60 mls/hr IV .[id number] ONE Stop: 02/08/17 10:50 Last Admin: 02/07/17 18:11 Dose: 60 mls/hr Chromium/Copper/Manganese/Zinc (1 ml/ Amino Acids) 1,001 mls @ 60 mls/hr IV .[id number] ONE Stop: 02/09/17 03:30 Insulin Human Regular (Novolin R) 0 unit SC ACHS [facility] PRN Reason: Protocol Last Admin: 02/07/17 18:12 Dose: Not Given Nitroglycerin (Nitro-Bid 2% Oint) 1 ea TOP Q6 [facility] Last Admin: 02/07/17 18:11 Dose: 1 ea Pantoprazole Sodium (Protonix Inj) 40 mg IVP DAILY [facility] Last Admin: 02/07/17 09:30 Dose: 40 mg - Labs Labs: 02/07/17 11:14 02/07/17 11:14 PT 12.2 SECONDS (9.7-12.2) 02/05/17 11:42 INR 1.1 02/05/17 11:42 APTT 21 SECONDS (21-34) 02/05/17 11:42 - Constitutional Appears: No Acute Distress, Chronically Ill - Head Exam Head Exam: ATRAUMATIC, NORMAL INSPECTION, NORMOCEPHALIC - Eye Exam Eye Exam: EOMI, Normal appearance, PERRL Pupil Exam: NORMAL ACCOMODATION, PERRL - Respiratory Exam Respiratory Exam: Decreased Breath Sounds, Rales, Rhonchi - Cardiovascular Exam Cardiovascular Exam: REGULAR RHYTHM, +S1, +S2. absent: Murmur - GI/Abdominal Exam GI & Abdominal Exam: Soft, Normal Bowel Sounds. absent: Tenderness Assessment and Plan (1) COPD (chronic obstructive pulmonary disease) Status: Acute (2) PEG (percutaneous endoscopic gastrostomy) adjustment/replacement/removal Assessment & Plan: Asssessment : GRAM-POSITIVE BACTEREMIA. 1:2 SETS ( identification pending ) VRE - UROSEPSIS S/P FOLY REMOVAL. ANEMIA. S/P PEG REMOVAL/INFECTED STOMA. D.MELLITUS. HYPERTENSION. Plan : ON iv ZYVOX 600 MG EVERY 12 HOURLY 02/06/17. CONTINUE iv FLAGYL 500 EVERY 8 HOURLY 02/06/17. CONTINUE iv CIPRO 400 EVERY 12 HOURLY02/06/17. FOLLOW CULTURES TO ADJUST ANTIBIOTICS. CASE DISCUSSED WITH STAFF. MONITOR H/H AND PLATELETS. PT FOR PRBC TRANSFUSION. PATIENT FOR REPEAT SWALLOW EVAL PATIENT DOES NOT HAVE A peg TUBE. Status: Acute (3) Abdominal pain Status: Acute (4) COPD exacerbation Status: Acute
[2017-02-08] MEDS: Albuterol 0.083% Inhal Sol (2.5 mg/3 mL) UD INH SCH ×4 (01:01→19:33)
[2017-02-08] MEDS: Linezolid 600 mg in D5W 300 ml 600 MG/300 ML BAG IVPB SCH ×2 (02:49→14:30)
[2017-02-08] MEDS: Nitroglycerin 2% Ointment Foilpak UD TOP SCH ×6 (02:51→19:24)
[2017-02-08] MEDS: metroNIDAZOLE IV 500 mg/100 ml 500 MG/100 ML BAG IVPB SCH ×3 (05:02→21:25)
[2017-02-08] MEDS: (Novolin R) Insulin Human Regular 100 units/ml vial SC SCH ×4 (08:00→21:31)
[2017-02-08] MEDS: Ciprofloxacin 400mg/200ml D5W 400 MG/200 ML BAG IVPB SCH ×2 (08:17→21:26)
[2017-02-08 09:10] LABS: BASO % 0.2 % (0.0-2.0); EOS # 0.2 K/uL (0.0-0.7); LYMPH # 3.2 K/uL (1.0-4.3); LYMPH % 30.4 % (20.0-40.0); MEAN CELL VOLUME 83.8 fL (81.0-99.0); MEAN CORPUSCULAR HEMOGLOBIN 27.8 pg (27.0-31.0); MEAN CORPUSCULAR HGB CONC 33.1 g/dL (33.0-37.0); MEAN PLATELET VOLUME 6.9 fL (7.2-11.7); MONO # 0.6 K/uL (0.0-0.8); NEUT # 6.4 K/uL (1.8-7.0); NEUT % 61.4 % (50.0-75.0); RBC 3.69 Mil/uL (3.80-5.20); RED CELL DISTRIBUTION WIDTH 17.6 % (11.5-14.5); WHITE BLOOD COUNT 10.5 K/uL (4.8-10.8)
[2017-02-08 09:13] LABS: HEMOGLOBIN 10.2 g/dL (11.0-16.0)
[2017-02-08 09:27] LABS: GFR AFRICAN-AMERICAN > 60; GFR NON-AFRICAN AMERICAN > 60
[2017-02-08 09:28] LABS: ALB/GLOB RATIO 0.7 (1.0-2.1); ALT/SGPT 19 U/L (9-52); AST/SGOT 23 U/L (14-36); BLOOD UREA NITROGEN 13 mg/dL (7-17)
[2017-02-08 09:29] LABS: CALCIUM 9.3 mg/dl (8.6-10.4)
--- NOTE | 2017-02-08 10:17 | CP.PCM.PN ---
Subjective - Date & Time of Evaluation Date of Evaluation: 02/08/17 Time of Evaluation: 08:20 - Subjective Subjective: pt is on antibiotics, wound care, dressing on peg site, she is more alert, talking, answers are more appropiate Objective - Vital Signs/Intake and Output Vital Signs (last 24 hours): Temp Pulse Resp BP Pulse Ox 98.5 F 90 20 144/74 95 02/08/17 04:45 02/08/17 04:45 02/08/17 04:45 02/08/17 04:45 02/08/17 07:43 Intake and Output: 02/08/17 02/08/17 06:59 18:59 Intake Total 281 Balance 281 - Medications Medications: Current Medications Albuterol Sulfate (Albuterol 0.083% Inhal Angie (2.5 Mg/3 Ml) Ud) 2.5 mg INH RQ6 [facility] Last Admin: 02/08/17 08:02 Dose: 2.5 mg Enoxaparin Sodium (Lovenox) 40 mg SC DAILY [facility] Last Admin: 02/07/17 09:31 Dose: 40 mg Metronidazole (Flagyl) 500 mg in 100 mls @ 100 mls/hr IVPB Q8H [facility] Last Admin: 02/08/17 05:02 Dose: 100 mls/hr Linezolid (Zyvox 600mg/300ml D5w) 600 mg in 300 mls @ 200 mls/hr IVPB Q12H [facility] Last Admin: 02/08/17 02:49 Dose: 200 mls/hr Ciprofloxacin (Cipro 400mg/200ml Dsw) 400 mg in 200 mls @ 133 mls/hr IVPB Q12H [facility] Last Admin: 02/08/17 08:17 Dose: 133 mls/hr Multivitamins/Vitamin C 10 ml/Chromium/Copper/Manganese/Zinc 1 ml/ Amino Acids 1,011 mls @ 60 mls/hr IV .[id number] ONE Stop: 02/08/17 10:50 Last Admin: 02/07/17 18:11 Dose: 60 mls/hr Chromium/Copper/Manganese/Zinc (1 ml/ Amino Acids) 1,001 mls @ 60 mls/hr IV .[id number] ONE Stop: 02/09/17 03:30 Insulin Human Regular (Novolin R) 0 unit SC ACHS [facility] PRN Reason: Protocol Last Admin: 02/07/17 21:59 Dose: Not Given Nitroglycerin (Nitro-Bid 2% Oint) 1 ea TOP Q6 [facility] Last Admin: 02/08/17 07:11 Dose: 1 ea Pantoprazole Sodium (Protonix Inj) 40 mg IVP DAILY [facility] Last Admin: 02/07/17 09:30 Dose: 40 mg - Labs Labs: 02/08/17 09:02 02/08/17 09:02 PT 12.2 SECONDS (9.7-12.2) 02/05/17 11:42 INR 1.1 02/05/17 11:42 APTT 21 SECONDS (21-34) 02/05/17 11:42 - Constitutional Appears: No Acute Distress - Head Exam Head Exam: ATRAUMATIC, NORMAL INSPECTION, NORMOCEPHALIC - Eye Exam Eye Exam: EOMI, Normal appearance, PERRL Pupil Exam: NORMAL ACCOMODATION, PERRL - ENT Exam ENT Exam: Mucous Membranes Moist, Normal Exam - Respiratory Exam Respiratory Exam: Clear to Ausculation Bilateral, NORMAL BREATHING PATTERN - Cardiovascular Exam Cardiovascular Exam: REGULAR RHYTHM, +S1, +S2. absent: Murmur - GI/Abdominal Exam GI & Abdominal Exam: Soft, Normal Bowel Sounds. absent: Tenderness Assessment and Plan (1) PEG (percutaneous endoscopic gastrostomy) adjustment/replacement/removal Status: Acute (2) COPD (chronic obstructive pulmonary disease) Status: Acute (3) Diabetes mellitus Status: Chronic (4) Hypertension Status: Chronic (5) UTI (urinary tract infection) due to Enterococcus Status: Acute
[2017-02-08] MEDS: Enoxaparin 40 mg Syringe SC SCH (10:27)
[2017-02-08] MEDS ORDERED: PPN #4 IV ONE (10:50)
--- NOTE | 2017-02-08 12:41 | CP.PCM.PN ---
Subjective - Date & Time of Evaluation Date of Evaluation: 02/08/17 Time of Evaluation: 12:41 - Subjective Subjective: CHIEF COMPLAINTS TODAY : TEMP 98.5, AAO But weak. on TPN. FAILED SWALLOW EVAL. s/p PEG removal 02/06/17 Blood culture reported1;2 sets SCN BY PNA FISH ? CONTAMINANT. ROS. HEENT : N. Resp : No SOB wheezing, cough Cardio : No CP, PND orthopnea GI : No abd. 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 Musculoskel : N Ext. : Pedal pulses intact, no edema or calf pain Derm : N Psych : N. PE. Pt. is alert awake in no distress. V.S As noted in the chart Head ,ear nose,throat and eyes : Normal. Neck : Supple with normal carotids. Lungs: Clear air entry. Heart : S1 & S2 normal . . No murmur. S4 + Abd : Soft non tender with normal bowel sounds.S/P PEG REMOVAL .DRESSING IN PLACE Neuro : Moves all ext. with no localized deficit. Ext : No edema with intact pulses. Neg. calf tenderness Derm : No rashes or decubitus ulcer. Radiology/Labs . wbc 10.5 H/H 10.2/30.9 cREATININE 0.6/bun 13 LFTS -N NORMAL Asssessment : GRAM-POSITIVE BACTEREMIA. 1:2 SETS ( SCN ? CONTAMINANT ) VRE - UROSEPSIS S/P FOLY REMOVAL. ANEMIA. S/P PEG REMOVAL/INFECTED STOMA. D.MELLITUS. HYPERTENSION. Plan : ON iv ZYVOX 600 MG EVERY 12 HOURLY 02/06/17. CONTINUE iv FLAGYL 500 EVERY 8 HOURLY 02/06/17. CONTINUE iv CIPRO 400 EVERY 12 HOURLY02/06/17. FOLLOW CULTURES TO ADJUST ANTIBIOTICS. CASE DISCUSSED WITH STAFF. Objective - Vital Signs/Intake and Output Vital Signs (last 24 hours): Temp Pulse Resp BP Pulse Ox 98.5 F 90 20 144/74 95 02/08/17 04:45 02/08/17 04:45 02/08/17 04:45 02/08/17 04:45 02/08/17 07:43 Intake and Output: 02/08/17 02/08/17 06:59 18:59 Intake Total 281 Balance 281 - Medications Medications: Current Medications Albuterol Sulfate (Albuterol 0.083% Inhal Angie (2.5 Mg/3 Ml) Ud) 2.5 mg INH RQ6 [facility] Last Admin: 02/08/17 08:02 Dose: 2.5 mg Enoxaparin Sodium (Lovenox) 40 mg SC DAILY [facility] Last Admin: 02/08/17 10:27 Dose: 40 mg Metronidazole (Flagyl) 500 mg in 100 mls @ 100 mls/hr IVPB Q8H [facility] Last Admin: 02/08/17 05:02 Dose: 100 mls/hr Linezolid (Zyvox 600mg/300ml D5w) 600 mg in 300 mls @ 200 mls/hr IVPB Q12H [facility] Last Admin: 02/08/17 02:49 Dose: 200 mls/hr Ciprofloxacin (Cipro 400mg/200ml Dsw) 400 mg in 200 mls @ 133 mls/hr IVPB Q12H [facility] Last Admin: 02/08/17 08:17 Dose: 133 mls/hr Chromium/Copper/Manganese/Zinc (1 ml/ Amino Acids) 1,001 mls @ 60 mls/hr IV .[id number] ONE Stop: 02/09/17 03:30 Potassium Chloride (Potassium Chloride 20 Meq/100 Ml) 20 meq in 100 mls @ 50 mls/hr IVPB Q4 [facility] Stop: 02/08/17 17:59 Last Admin: 02/08/17 12:15 Dose: 50 mls/hr Chromium/Copper/Manganese/Zinc 1 ml/ Multivitamins/Vitamin C 10 ml/ Amino Acids 1,011 mls @ 60 mls/hr IV .[id number] ONE Stop: 02/09/17 10:50 Chromium/Copper/Manganese/Zinc (1 ml/ Amino Acids) 1,001 mls @ 60 mls/hr IV .[id number] [facility] Stop: 02/09/17 17:59 Insulin Human Regular (Novolin R) 0 unit SC ACHS [facility] PRN Reason: Protocol Last Admin: 02/08/17 12:24 Dose: Not Given Nitroglycerin (Nitro-Bid 2% Oint) 1 ea TOP Q6 [facility] Last Admin: 02/08/17 12:17 Dose: 1 ea Pantoprazole Sodium (Protonix Inj) 40 mg IVP DAILY [facility] Last Admin: 02/08/17 10:24 Dose: 40 mg - Labs Labs: 02/08/17 09:02 02/08/17 09:02 PT 12.2 SECONDS (9.7-12.2) 02/05/17 11:42 INR 1.1 02/05/17 11:42 APTT 21 SECONDS (21-34) 02/05/17 11:42 Assessment and Plan (1) UTI (urinary tract infection) Status: Acute (2) PEG (percutaneous endoscopic gastrostomy) adjustment/replacement/removal Status: Acute (3) Diabetes mellitus Status: Chronic (4) Hypertension Status: Chronic (5) Anemia Status: Acute
[2017-02-08] MEDS ORDERED: PPN #5 IV ONE (18:00)
[2017-02-08] MEDS ORDERED: Nitroglycerin 2% Ointment Foilpak UD TOP PRN (20:02)
[2017-02-09] MEDS: Albuterol 0.083% Inhal Sol (2.5 mg/3 mL) UD INH SCH ×4 (01:21→19:50)
--- NOTE | 2017-02-09 02:27 | CP.PCM.PN ---
Subjective - Date & Time of Evaluation Date of Evaluation: 02/09/17 Time of Evaluation: 21:00 - Subjective Subjective: Pt seen and examined, failed swallowing eval s/p peg removal Objective - Vital Signs/Intake and Output Vital Signs (last 24 hours): Temp Pulse Resp BP Pulse Ox 99.4 F 87 20 123/74 96 02/08/17 23:20 02/08/17 23:20 02/08/17 23:20 02/08/17 23:20 02/08/17 23:20 Intake and Output: 02/08/17 02/09/17 18:59 06:59 Intake Total 810 Balance 810 - Medications Medications: Current Medications Albuterol Sulfate (Albuterol 0.083% Inhal Angie (2.5 Mg/3 Ml) Ud) 2.5 mg INH RQ6 [facility] Last Admin: 02/09/17 01:21 Dose: 2.5 mg Enoxaparin Sodium (Lovenox) 40 mg SC DAILY [facility] Last Admin: 02/08/17 10:27 Dose: 40 mg Metronidazole (Flagyl) 500 mg in 100 mls @ 100 mls/hr IVPB Q8H [facility] Last Admin: 02/08/17 21:25 Dose: 100 mls/hr Linezolid (Zyvox 600mg/300ml D5w) 600 mg in 300 mls @ 200 mls/hr IVPB Q12H [facility] Last Admin: 02/08/17 14:30 Dose: 200 mls/hr Ciprofloxacin (Cipro 400mg/200ml Dsw) 400 mg in 200 mls @ 133 mls/hr IVPB Q12H [facility] Last Admin: 02/08/17 21:26 Dose: 133 mls/hr Chromium/Copper/Manganese/Zinc (1 ml/ Amino Acids) 1,001 mls @ 60 mls/hr IV .[id number] ONE Stop: 02/09/17 03:30 Last Admin: 02/08/17 10:50 Dose: Not Given Chromium/Copper/Manganese/Zinc 1 ml/ Multivitamins/Vitamin C 10 ml/ Amino Acids 1,011 mls @ 60 mls/hr IV .[id number] ONE Stop: 02/09/17 10:50 Last Admin: 02/08/17 19:29 Dose: 60 mls/hr Chromium/Copper/Manganese/Zinc (1 ml/ Amino Acids) 1,001 mls @ 60 mls/hr IV .[id number] [facility] Stop: 02/09/17 17:59 Insulin Human Regular (Novolin R) 0 unit SC ACHS [facility] PRN Reason: Protocol Last Admin: 02/08/17 21:31 Dose: Not Given Nitroglycerin (Nitro-Bid 2% Oint) 1 ea TOP Q6 [facility] PRN Reason: for SYSTOLIC BP ABOVE 160 Pantoprazole Sodium (Protonix Inj) 40 mg IVP DAILY [facility] Last Admin: 02/08/17 10:24 Dose: 40 mg - Labs Labs: 02/08/17 09:02 02/08/17 09:02 PT 12.2 SECONDS (9.7-12.2) 02/05/17 11:42 INR 1.1 02/05/17 11:42 APTT 21 SECONDS (21-34) 02/05/17 11:42 - Constitutional Appears: No Acute Distress, Chronically Ill - Head Exam Head Exam: ATRAUMATIC, NORMAL INSPECTION, NORMOCEPHALIC - Eye Exam Eye Exam: EOMI, Normal appearance, PERRL Pupil Exam: NORMAL ACCOMODATION, PERRL - ENT Exam ENT Exam: Mucous Membranes Moist, Normal Exam - Neck Exam Neck Exam: Full ROM, Normal Inspection. absent: Lymphadenopathy - Respiratory Exam Respiratory Exam: Clear to Ausculation Bilateral, NORMAL BREATHING PATTERN Assessment and Plan (1) PEG (percutaneous endoscopic gastrostomy) adjustment/replacement/removal Status: Acute (2) COPD (chronic obstructive pulmonary disease) Status: Acute (3) Diabetes mellitus Status: Chronic (4) Hypertension Status: Chronic (5) UTI (urinary tract infection) due to Enterococcus Status: Acute
[2017-02-09] MEDS: Linezolid 600 mg in D5W 300 ml 600 MG/300 ML BAG IVPB SCH ×2 (02:53→14:33)
[2017-02-09] MEDS: metroNIDAZOLE IV 500 mg/100 ml 500 MG/100 ML BAG IVPB SCH ×3 (06:27→22:49)
[2017-02-09] MEDS: (Novolin R) Insulin Human Regular 100 units/ml vial SC SCH ×4 (07:53→22:08)
[2017-02-09] MEDS: Ciprofloxacin 400mg/200ml D5W 400 MG/200 ML BAG IVPB SCH ×2 (09:05→22:03)
[2017-02-09] MEDS: Enoxaparin 40 mg Syringe SC SCH (10:28)
[2017-02-09] MEDS: PPN #6 IV SCH ×2 (11:05→13:13)
--- NOTE | 2017-02-09 12:08 | CP.PCM.PN ---
Subjective - Date & Time of Evaluation Date of Evaluation: 02/09/17 Time of Evaluation: 12:08 - Subjective Subjective: CHIEF COMPLAINTS TODAY : TEMP 98.5, AAO But weak. on TPN. FAILED SWALLOW EVAL. s/p PEG removal 02/06/17 Blood culture reported1;2 sets SCN BY PNA FISH ? CONTAMINANT. ROS. HEENT : N. Resp : No SOB wheezing, cough Cardio : No CP, PND orthopnea GI : No abd. 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 Musculoskel : N Ext. : Pedal pulses intact, no edema or calf pain Derm : N Psych : N. PE. Pt. is alert awake in no distress. V.S As noted in the chart Head ,ear nose,throat and eyes : Normal. Neck : Supple with normal carotids. Lungs: Clear air entry. Heart : S1 & S2 normal . . No murmur. S4 + Abd : Soft non tender with normal bowel sounds.S/P PEG REMOVAL .DRESSING IN PLACE Neuro : Moves all ext. with no localized deficit. Ext : No edema with intact pulses. Neg. calf tenderness Derm : No rashes or decubitus ulcer. Radiology/Labs . wbc 10.5 H/H 10.2/30.9 cREATININE 0.6/bun 13 LFTS -N NORMAL Asssessment : GRAM-POSITIVE BACTEREMIA. 1:2 SETS ( SCN ? CONTAMINANT ) VRE - UROSEPSIS S/P FOLY REMOVAL. ANEMIA. S/P PEG REMOVAL/INFECTED STOMA. D.MELLITUS. HYPERTENSION. Plan : ON iv ZYVOX 600 MG EVERY 12 HOURLY 02/06/17. CONTINUE iv FLAGYL 500 EVERY 8 HOURLY 02/06/17. CONTINUE iv CIPRO 400 EVERY 12 HOURLY02/06/17. CASE DISCUSSED WITH STAFF. PT AWAITING FOR REPLACEMENT OF PEG NEXT WEEK. Objective - Vital Signs/Intake and Output Vital Signs (last 24 hours): Temp Pulse Resp BP Pulse Ox 98.5 F 79 20 148/75 98 02/09/17 08:44 02/09/17 08:44 02/09/17 08:44 02/09/17 08:44 02/09/17 08:44 - Medications Medications: Current Medications Albuterol Sulfate (Albuterol 0.083% Inhal Angie (2.5 Mg/3 Ml) Ud) 2.5 mg INH RQ6 [facility] Last Admin: 02/09/17 07:47 Dose: 2.5 mg Enoxaparin Sodium (Lovenox) 40 mg SC DAILY [facility] Last Admin: 02/09/17 10:28 Dose: 40 mg Famotidine (Pepcid) 40 mg IVP DAILY [facility] Last Admin: 02/09/17 10:29 Dose: 40 mg Metronidazole (Flagyl) 500 mg in 100 mls @ 100 mls/hr IVPB Q8H [facility] Last Admin: 02/09/17 06:27 Dose: 100 mls/hr Linezolid (Zyvox 600mg/300ml D5w) 600 mg in 300 mls @ 200 mls/hr IVPB Q12H [facility] Last Admin: 02/09/17 02:53 Dose: 200 mls/hr Ciprofloxacin (Cipro 400mg/200ml Dsw) 400 mg in 200 mls @ 133 mls/hr IVPB Q12H [facility] Last Admin: 02/09/17 09:05 Dose: 133 mls/hr Chromium/Copper/Manganese/Zinc (1 ml/ Amino Acids) 1,001 mls @ 60 mls/hr IV .[id number] [facility] Stop: 02/09/17 17:59 Last Admin: 02/09/17 11:05 Dose: Not Given Chromium/Copper/Manganese/Zinc 1 ml/ Multivitamins/Vitamin C 10 ml/ Amino Acids 1,011 mls @ 60 mls/hr IV .[id number] [facility] Stop: 02/10/17 10:50 Chromium/Copper/Manganese/Zinc (1 ml/ Amino Acids) 1,001 mls @ 60 mls/hr IV .[id number] [facility] Stop: 02/10/17 17:59 Insulin Human Regular (Novolin R) 0 unit SC ACHS [facility] PRN Reason: Protocol Last Admin: 02/09/17 07:53 Dose: Not Given Nitroglycerin (Nitro-Bid 2% Oint) 1 ea TOP Q6 PRN PRN Reason: for SYSTOLIC BP ABOVE 160 - Labs Labs: 02/08/17 09:02 02/08/17 09:02 PT 12.2 SECONDS (9.7-12.2) 02/05/17 11:42 INR 1.1 02/05/17 11:42 APTT 21 SECONDS (21-34) 02/05/17 11:42 Assessment and Plan (1) UTI (urinary tract infection) Status: Acute (2) PEG (percutaneous endoscopic gastrostomy) adjustment/replacement/removal Status: Acute (3) Diabetes mellitus Status: Chronic (4) Hypertension Status: Chronic (5) Anemia Status: Acute
[2017-02-09] MEDS ORDERED: PPN #7 IV SCH (18:00)
[2017-02-10] MEDS: Albuterol 0.083% Inhal Sol (2.5 mg/3 mL) UD INH SCH ×4 (01:17→19:45)
[2017-02-10] MEDS: Linezolid 600 mg in D5W 300 ml 600 MG/300 ML BAG IVPB SCH (02:27)
[2017-02-10] MEDS: metroNIDAZOLE IV 500 mg/100 ml 500 MG/100 ML BAG IVPB SCH ×3 (05:21→23:01)
[2017-02-10] MEDS: (Novolin R) Insulin Human Regular 100 units/ml vial SC SCH ×3 (07:30→23:03)
[2017-02-10] MEDS: Ciprofloxacin 400mg/200ml D5W 400 MG/200 ML BAG IVPB SCH ×2 (08:32→21:30)
[2017-02-10] MEDS: Enoxaparin 40 mg Syringe SC SCH (09:14)
[2017-02-10] MEDS ORDERED: PPN #8 IV SCH (10:51)
[2017-02-10] MEDS ORDERED: PPN #9 IV SCH (18:00)
--- NOTE | 2017-02-10 22:01 | CP.PCM.PN ---
Subjective - Date & Time of Evaluation Date of Evaluation: 02/10/17 Time of Evaluation: 14:30 - Subjective Subjective: COUGH AND CONGESTION, NO FEBER, ON TPN, NPO, FOR PEG SUNDAY, NO CHEST PAIN, NPO Objective - Vital Signs/Intake and Output Vital Signs (last 24 hours): Temp Pulse Resp BP Pulse Ox 99.4 F 79 20 125/66 97 02/10/17 07:30 02/10/17 07:30 02/10/17 07:30 02/10/17 07:30 02/10/17 07:30 - Medications Medications: Current Medications Enoxaparin Sodium (Lovenox) 40 mg SC DAILY [facility] Last Admin: 02/10/17 09:14 Dose: 40 mg Famotidine (Pepcid) 40 mg IVP DAILY [facility] Last Admin: 02/10/17 09:11 Dose: 40 mg Metronidazole (Flagyl) 500 mg in 100 mls @ 100 mls/hr IVPB Q8H [facility] Last Admin: 02/10/17 13:45 Dose: 100 mls/hr Linezolid (Zyvox 600mg/300ml D5w) 600 mg in 300 mls @ 200 mls/hr IVPB Q12H [facility] Last Admin: 02/10/17 02:27 Dose: 200 mls/hr Ciprofloxacin (Cipro 400mg/200ml Dsw) 400 mg in 200 mls @ 133 mls/hr IVPB Q12H [facility] Last Admin: 02/10/17 08:32 Dose: 133 mls/hr Chromium/Copper/Manganese/Zinc 1 ml/ Multivitamins/Vitamin C 10 ml/ Amino Acids 1,011 mls @ 60 mls/hr IV .[id number] [facility] Stop: 02/11/17 10:50 Chromium/Copper/Manganese/Zinc (1 ml/ Amino Acids) 1,001 mls @ 60 mls/hr IV .[id number] [facility] Stop: 02/11/17 17:59 Insulin Human Regular (Novolin R) 0 unit SC ACHS DESIRAE PRN Reason: Protocol Last Admin: 02/10/17 11:30 Dose: Not Given Nitroglycerin (Nitro-Bid 2% Oint) 1 ea TOP Q6 PRN PRN Reason: for SYSTOLIC BP ABOVE 160 - Labs Labs: 02/08/17 09:02 02/08/17 09:02 PT 12.2 SECONDS (9.7-12.2) 02/05/17 11:42 INR 1.1 02/05/17 11:42 APTT 21 SECONDS (21-34) 02/05/17 11:42 - Constitutional Appears: Non-toxic, No Acute Distress, Chronically Ill - Head Exam Head Exam: ATRAUMATIC, NORMAL INSPECTION, NORMOCEPHALIC - Eye Exam Eye Exam: EOMI, Normal appearance - ENT Exam ENT Exam: Mucous Membranes Moist, Normal Exam - Neck Exam Neck Exam: Normal Inspection - Respiratory Exam Respiratory Exam: Rhonchi, Wheezes - Cardiovascular Exam Cardiovascular Exam: Tachycardia, REGULAR RHYTHM, +S1, +S2 - GI/Abdominal Exam GI & Abdominal Exam: Soft, Normal Bowel Sounds - Rectal Exam Rectal Exam: NORMAL INSPECTION Assessment and Plan (1) PEG (percutaneous endoscopic gastrostomy) adjustment/replacement/removal Status: Acute (2) COPD (chronic obstructive pulmonary disease) Status: Acute (3) Diabetes mellitus Status: Chronic (4) Hypertension Status: Chronic (5) UTI (urinary tract infection) due to Enterococcus Assessment & Plan: ON ZYVOX Status: Acute
--- NOTE | 2017-02-10 23:44 | CP.PCM.PN ---
Subjective - Date & Time of Evaluation Date of Evaluation: 02/10/17 Time of Evaluation: 23:44 - Subjective Subjective: CHIEF COMPLAINTS TODAY : TEMP 99.4, AAO But weak.PT NPO on TPN. FAILED SWALLOW EVAL. s/p PEG removal 02/06/17 Blood culture reported1;2 sets SCN BY PNA FISH ? CONTAMINANT. ROS. HEENT : N. Resp : No SOB wheezing, cough Cardio : No CP, PND orthopnea GI : No abd. 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 Musculoskel : N Ext. : Pedal pulses intact, no edema or calf pain Derm : N Psych : N. PE. Pt. is alert awake in no distress. V.S As noted in the chart Head ,ear nose,throat and eyes : Normal. Neck : Supple with normal carotids. Lungs: Clear air entry. Heart : S1 & S2 normal . . No murmur. S4 + Abd : Soft non tender with normal bowel sounds.S/P PEG REMOVAL .DRESSING IN PLACE Neuro : Moves all ext. with no localized deficit. Ext : No edema with intact pulses. Neg. calf tenderness Derm : No rashes or decubitus ulcer. Radiology/Labs . wbc 10.5 H/H 10.2/30.9 cREATININE 0.6/bun 13 LFTS -N NORMAL Asssessment : GRAM-POSITIVE BACTEREMIA. 1:2 SETS ( SCN ? CONTAMINANT ) VRE - UROSEPSIS S/P FOLY REMOVAL. ANEMIA. S/P PEG REMOVAL/INFECTED STOMA. D.MELLITUS. HYPERTENSION. Plan : ON iv ZYVOX 600 MG EVERY 12 HOURLY 02/06/17. CONTINUE iv FLAGYL 500 EVERY 8 HOURLY 02/06/17. CONTINUE iv CIPRO 400 EVERY 12 HOURLY02/06/17. REPEAT UA/URINE CULTURE AM PT AWAITING FOR REPLACEMENT OF PEG SUNDAY. Objective - Vital Signs/Intake and Output Vital Signs (last 24 hours): Temp Pulse Resp BP Pulse Ox 99.4 F 79 20 125/66 97 02/10/17 07:30 02/10/17 07:30 02/10/17 07:30 02/10/17 07:30 02/10/17 07:30 - Medications Medications: Current Medications Enoxaparin Sodium (Lovenox) 40 mg SC DAILY [facility] Last Admin: 02/10/17 09:14 Dose: 40 mg Famotidine (Pepcid) 40 mg IVP DAILY [facility] Last Admin: 02/10/17 09:11 Dose: 40 mg Metronidazole (Flagyl) 500 mg in 100 mls @ 100 mls/hr IVPB Q8H [facility] Last Admin: 02/10/17 23:01 Dose: 100 mls/hr Linezolid (Zyvox 600mg/300ml D5w) 600 mg in 300 mls @ 200 mls/hr IVPB Q12H [facility] Last Admin: 02/10/17 02:27 Dose: 200 mls/hr Ciprofloxacin (Cipro 400mg/200ml Dsw) 400 mg in 200 mls @ 133 mls/hr IVPB Q12H [facility] Last Admin: 02/10/17 21:30 Dose: 133 mls/hr Chromium/Copper/Manganese/Zinc 1 ml/ Multivitamins/Vitamin C 10 ml/ Amino Acids 1,011 mls @ 60 mls/hr IV .[id number] [facility] Stop: 02/11/17 10:50 Chromium/Copper/Manganese/Zinc (1 ml/ Amino Acids) 1,001 mls @ 60 mls/hr IV .[id number] [facility] Stop: 02/11/17 17:59 Insulin Human Regular (Novolin R) 0 unit SC ACHS [facility] PRN Reason: Protocol Last Admin: 02/10/17 23:03 Dose: Not Given Nitroglycerin (Nitro-Bid 2% Oint) 1 ea TOP Q6 PRN PRN Reason: for SYSTOLIC BP ABOVE 160 - Labs Labs: 02/08/17 09:02 02/08/17 09:02 PT 12.2 SECONDS (9.7-12.2) 02/05/17 11:42 INR 1.1 02/05/17 11:42 APTT 21 SECONDS (21-34) 02/05/17 11:42 Assessment and Plan (1) UTI (urinary tract infection) Status: Acute (2) PEG (percutaneous endoscopic gastrostomy) adjustment/replacement/removal Status: Acute (3) Diabetes mellitus Status: Chronic (4) Hypertension Status: Chronic (5) Anemia Status: Acute
[2017-02-11] MEDS: Linezolid 600 mg in D5W 300 ml 600 MG/300 ML BAG IVPB SCH ×2 (02:57→15:21)
[2017-02-11] MEDS: metroNIDAZOLE IV 500 mg/100 ml 500 MG/100 ML BAG IVPB SCH ×3 (05:11→23:36)
[2017-02-11 08:27] LABS: SQUAMOUS EPITHIAL < 1 /hpf (0-5); URINE BACTERIA RARE (<OCC); URINE BILIRUBIN NEGATIVE (NEGATIVE); URINE BLOOD NEGATIVE (NEGATIVE); URINE CLARITY Clear (Clear); URINE COLOR Yellow (YELLOW); URINE GLUCOSE (UA) NORMAL (Normal); URINE LEUKOCYTE ESTERASE 3+ Leu/uL (Negative); URINE NITRATE NEGATIVE (NEGATIVE); URINE PROTEIN NEGATIVE (NEGATIVE); URINE UROBILINOGEN NORMAL mg/dL (0.2-1.0)
[2017-02-11] MEDS: (Novolin R) Insulin Human Regular 100 units/ml vial SC SCH ×4 (08:37→23:36)
[2017-02-11] MEDS: Enoxaparin 40 mg Syringe SC SCH (09:48)
[2017-02-11] MEDS: Ciprofloxacin 400mg/200ml D5W 400 MG/200 ML BAG IVPB SCH ×2 (09:53→22:04)
[2017-02-11] MEDS ORDERED: PPN #10 IV SCH (10:51)
[2017-02-11 10:55] LABS: BASO # 0.1 K/uL (0.0-0.2); BASO % 0.9 % (0.0-2.0); EOS # 0.2 K/uL (0.0-0.7); EOS % 3.5 % (0.0-4.0); LYMPH # 1.8 K/uL (1.0-4.3); MEAN CELL VOLUME 85.4 fL (81.0-99.0); MEAN CORPUSCULAR HEMOGLOBIN 27.6 pg (27.0-31.0); MEAN CORPUSCULAR HGB CONC 32.3 g/dL (33.0-37.0); MEAN PLATELET VOLUME 6.5 fL (7.2-11.7); MONO # 0.5 K/uL (0.0-0.8); MONO % 7.3 % (0.0-10.0); NEUT # 3.8 K/uL (1.8-7.0); NEUT % 60.3 % (50.0-75.0); RBC 3.64 Mil/uL (3.80-5.20); RED CELL DISTRIBUTION WIDTH 18.7 % (11.5-14.5); WHITE BLOOD COUNT 6.3 K/uL (4.8-10.8)
[2017-02-11 11:02] LABS: ALBUMIN 2.9 g/dL (3.5-5.0)
[2017-02-11 11:05] LABS: AST/SGOT 24 U/L (14-36); GFR AFRICAN-AMERICAN > 60; GFR NON-AFRICAN AMERICAN > 60
[2017-02-11 11:06] LABS: ALB/GLOB RATIO 0.7 (1.0-2.1); ALT/SGPT 20 U/L (9-52); BLOOD UREA NITROGEN 17 mg/dL (7-17); CALCIUM 9.4 mg/dl (8.6-10.4)
[2017-02-11] MEDS ORDERED: PPN #11 IV ONE (18:00)
--- NOTE | 2017-02-11 23:35 | CP.PCM.PN ---
Subjective - Date & Time of Evaluation Date of Evaluation: 02/11/17 Time of Evaluation: 21:00 - Subjective Subjective: pt seen and examined, s/p replacemnt of gastrostomy tube, on nebulizer treatment , wounds healing on antibiotics Objective - Vital Signs/Intake and Output Vital Signs (last 24 hours): Temp Pulse Resp BP Pulse Ox 98 F 71 20 129/78 99 02/11/17 15:00 02/11/17 15:00 02/11/17 15:00 02/11/17 15:00 02/11/17 15:00 - Medications Medications: Current Medications Enoxaparin Sodium (Lovenox) 40 mg SC DAILY [facility] Last Admin: 02/11/17 09:48 Dose: 40 mg Famotidine (Pepcid) 40 mg IVP DAILY [facility] Last Admin: 02/11/17 09:49 Dose: 40 mg Metronidazole (Flagyl) 500 mg in 100 mls @ 100 mls/hr IVPB Q8H [facility] Last Admin: 02/11/17 14:14 Dose: 100 mls/hr Linezolid (Zyvox 600mg/300ml D5w) 600 mg in 300 mls @ 200 mls/hr IVPB Q12H [facility] Last Admin: 02/11/17 15:21 Dose: 200 mls/hr Ciprofloxacin (Cipro 400mg/200ml Dsw) 400 mg in 200 mls @ 133 mls/hr IVPB Q12H [facility] Last Admin: 02/11/17 22:04 Dose: 133 mls/hr Chromium/Copper/Manganese/Zinc (1 ml/ Amino Acids) 1,001 mls @ 60 mls/hr IV .[id number] [facility] Stop: 02/12/17 10:40 Last Admin: 02/11/17 18:07 Dose: 60 mls/hr Chromium/Copper/Manganese/Zinc (1 ml/ Amino Acids) 1,001 mls @ 60 mls/hr IV .[id number] [facility] Stop: 02/13/17 03:30 Insulin Human Regular (Novolin R) 0 unit SC ACHS [facility] PRN Reason: Protocol Last Admin: 02/11/17 18:45 Dose: Not Given Nitroglycerin (Nitro-Bid 2% Oint) 1 ea TOP Q6 PRN PRN Reason: for SYSTOLIC BP ABOVE 160 - Labs Labs: 02/11/17 10:52 02/11/17 10:52 PT 12.2 SECONDS (9.7-12.2) 02/05/17 11:42 INR 1.1 02/05/17 11:42 APTT 21 SECONDS (21-34) 02/05/17 11:42 Assessment and Plan (1) PEG (percutaneous endoscopic gastrostomy) adjustment/replacement/removal Status: Acute (2) COPD (chronic obstructive pulmonary disease) Status: Acute (3) Diabetes mellitus Status: Chronic (4) Hypertension Status: Chronic (5) UTI (urinary tract infection) due to Enterococcus Status: Acute
[2017-02-12] MEDS: Linezolid 600 mg in D5W 300 ml 600 MG/300 ML BAG IVPB SCH (02:38)
[2017-02-12] MEDS: metroNIDAZOLE IV 500 mg/100 ml 500 MG/100 ML BAG IVPB SCH ×3 (05:50→22:17)
[2017-02-12] MEDS: (Novolin R) Insulin Human Regular 100 units/ml vial SC SCH ×4 (08:00→21:36)
[2017-02-12] MEDS: Ciprofloxacin 400mg/200ml D5W 400 MG/200 ML BAG IVPB SCH ×2 (09:05→21:35)
[2017-02-12] MEDS: Enoxaparin 40 mg Syringe SC SCH (09:40)
[2017-02-12] MEDS ORDERED: PPN #12 IV ONE ×2 (10:50→13:00)
--- NOTE | 2017-02-12 13:27 | CP.PCM.PN ---
Subjective - Date & Time of Evaluation Date of Evaluation: 02/12/17 Time of Evaluation: 13:27 - Subjective Subjective: CHIEF COMPLAINTS TODAY : TEMP 98.4 s/p REINSERTION OF PEG TODAY/AND EGD TODAY 02/12/17. s/p PEG removal 02/06/17 Blood culture reported1;2 sets SCN BY PNA FISH ? CONTAMINANT. ROS. HEENT : N. Resp : No SOB wheezing, cough Cardio : No CP, PND orthopnea GI : No abd. 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 Musculoskel : N Ext. : Pedal pulses intact, no edema or calf pain Derm : N Psych : N. PE. Pt. is alert awake in no distress. V.S As noted in the chart Head ,ear nose,throat and eyes : Normal. Neck : Supple with normal carotids. Lungs: Clear air entry. Heart : S1 & S2 normal . . No murmur. S4 + Abd : Soft non tender with normal bowel sounds.S/P PEG REMOVAL .DRESSING IN PLACE Neuro : Moves all ext. with no localized deficit. Ext : No edema with intact pulses. Neg. calf tenderness Derm : No rashes or decubitus ulcer. Radiology/Labs . REVIEWED URINE CULTURES REPEAT +VE CANDIDUREA. Asssessment : S/P NEW PEG INSERTION 02/12/17. GRAM-POSITIVE BACTEREMIA. 1:2 SETS ( SCN ? CONTAMINANT ) CANDIDUREA S/P VRE - UROSEPSIS S/P FOLY REMOVAL. ANEMIA. S/P PEG REMOVAL/INFECTED STOMA. D.MELLITUS. HYPERTENSION. Plan : START IV DIFLUCAN 200MG IVPB [id number]. 02/12/17. X 5DAYS DC iv ZYVOX 600 MG EVERY 12 HOURLY 02/06/17-02/12/17 DC iv FLAGYL 500 EVERY 8 HOURLY 02/06/17 -AM-02/13/17 DC iv CIPRO 400 EVERY 12 HOURLY02/06/17-AM- 02/13/17 PER GI FEEDINGS Objective - Vital Signs/Intake and Output Vital Signs (last 24 hours): Temp Pulse Resp BP Pulse Ox 97.7 F 74 19 147/74 97 02/12/17 12:22 02/12/17 12:22 02/12/17 12:22 02/12/17 12:22 02/12/17 12:22 Intake and Output: 02/12/17 02/12/17 06:59 18:59 Intake Total 400 150 Balance 400 150 - Medications Medications: Current Medications Famotidine (Pepcid) 40 mg IVP DAILY [facility] Last Admin: 02/12/17 10:31 Dose: 40 mg Metronidazole (Flagyl) 500 mg in 100 mls @ 100 mls/hr IVPB Q8H [facility] Last Admin: 02/12/17 05:50 Dose: 100 mls/hr Linezolid (Zyvox 600mg/300ml D5w) 600 mg in 300 mls @ 200 mls/hr IVPB Q12H [facility] Last Admin: 02/12/17 02:38 Dose: 200 mls/hr Ciprofloxacin (Cipro 400mg/200ml Dsw) 400 mg in 200 mls @ 133 mls/hr IVPB Q12H [facility] Last Admin: 02/12/17 09:05 Dose: 133 mls/hr Chromium/Copper/Manganese/Zinc (1 ml/ Amino Acids) 1,001 mls @ 60 mls/hr IV .[id number] ONE Stop: 02/13/17 03:30 Last Admin: 02/12/17 10:35 Dose: 60 mls/hr Multivitamins/Vitamin C 10 ml/ (Amino Acids) 1,010 mls @ 60 mls/hr IV .[id number] ONE Stop: 02/13/17 10:49 Amino Acids (Clinimix 4.25/5 % "E" (1000 Ml)) 1,000 mls @ 60 mls/hr IV .[id number] ONE Stop: 02/14/17 03:29 Insulin Human Regular (Novolin R) 0 unit SC ACHS [facility] PRN Reason: Protocol Last Admin: 02/12/17 12:43 Dose: Not Given Nitroglycerin (Nitro-Bid 2% Oint) 1 ea TOP Q6 PRN PRN Reason: for SYSTOLIC BP ABOVE 160 - Labs Labs: 02/11/17 10:52 02/11/17 10:52 PT 12.2 SECONDS (9.7-12.2) 02/05/17 11:42 INR 1.1 02/05/17 11:42 APTT 21 SECONDS (21-34) 02/05/17 11:42 Assessment and Plan (1) UTI (urinary tract infection) Status: Acute (2) PEG (percutaneous endoscopic gastrostomy) adjustment/replacement/removal Status: Acute (3) Diabetes mellitus Status: Chronic (4) Hypertension Status: Chronic (5) Anemia Status: Acute
[2017-02-12 14:05] VITALS: RESP 20
[2017-02-12] MEDS: Fluconazole IV 200mg/100 ml NS 100 ML IVPB SCH (16:36)
[2017-02-12] MEDS ORDERED: PPN #13 IV ONE (18:00)
[2017-02-12] MEDS ORDERED: guaiFENesin 200 mg/10 ml Syrup UD PO PRN (19:19)
[2017-02-12] MEDS: guaiFENesin 200 mg/10 ml Syrup UD PO SCH ×2 (19:37→22:47)
[2017-02-12] MEDS: Albuterol-Ipratrop 3 mg / 0.5 (3 ml) UD INH SCH (20:20)
--- NOTE | 2017-02-12 23:45 | CP.PCM.PN ---
Subjective - Date & Time of Evaluation Date of Evaluation: 02/12/17 Time of Evaluation: 09:50 - Subjective Subjective: D/P PEG, FEELS BETTER, NO SOB, NO CHEST PAIN, TREMOR Objective - Vital Signs/Intake and Output Vital Signs (last 24 hours): Temp Pulse Resp BP Pulse Ox 98.4 F 84 20 145/77 100 02/12/17 16:00 02/12/17 18:00 02/12/17 16:00 02/12/17 18:00 02/12/17 16:00 Intake and Output: 02/12/17 02/13/17 18:59 06:59 Intake Total 420 800 Balance 420 800 - Medications Medications: Current Medications Albuterol/Ipratropium (Duoneb 3 Mg/0.5 Mg (3 Ml) Ud) 3 ml INH RQ6 [facility] Last Admin: 02/12/17 20:20 Dose: 3 ml Carbidopa/Levodopa (Sinemet) 1 tab PO Q8 [facility] Last Admin: 02/12/17 22:17 Dose: 1 tab Famotidine (Pepcid) 40 mg IVP DAILY [facility] Last Admin: 02/12/17 10:31 Dose: 40 mg Guaifenesin (Robitussin) 200 mg PO Q4H [facility] Last Admin: 02/12/17 22:47 Dose: 200 mg Metronidazole (Flagyl) 500 mg in 100 mls @ 100 mls/hr IVPB Q8H [facility] Last Admin: 02/12/17 22:17 Dose: 100 mls/hr Ciprofloxacin (Cipro 400mg/200ml Dsw) 400 mg in 200 mls @ 133 mls/hr IVPB Q12H [facility] Last Admin: 02/12/17 21:35 Dose: 133 mls/hr Amino Acids (Clinimix 4.25/5 % "E" (1000 Ml)) 1,000 mls @ 60 mls/hr IV .[id number] [facility] Stop: 02/14/17 03:29 Fluconazole (Diflucan Iv 200 Mg/100 Ml Ns) 100 mls @ 100 mls/hr IVPB Q24H [facility] Last Admin: 02/12/17 16:36 Dose: 100 mls/hr Insulin Human Regular (Novolin R) 0 unit SC ACHS [facility] PRN Reason: Protocol Last Admin: 02/12/17 21:36 Dose: Not Given Nitroglycerin (Nitro-Bid 2% Oint) 1 ea TOP Q6 PRN PRN Reason: for SYSTOLIC BP ABOVE 160 - Labs Labs: 02/11/17 10:52 02/11/17 10:52 PT 12.2 SECONDS (9.7-12.2) 02/05/17 11:42 INR 1.1 02/05/17 11:42 APTT 21 SECONDS (21-34) 02/05/17 11:42 - Constitutional Appears: Non-toxic, No Acute Distress, Chronically Ill - Head Exam Head Exam: ATRAUMATIC, NORMAL INSPECTION, NORMOCEPHALIC - Eye Exam Eye Exam: EOMI, Normal appearance, PERRL Pupil Exam: NORMAL ACCOMODATION - Neck Exam Neck Exam: Normal Inspection - Respiratory Exam Respiratory Exam: Prolonged Expiratory Phase, Rhonchi - Cardiovascular Exam Cardiovascular Exam: REGULAR RHYTHM, +S1, +S2 - GI/Abdominal Exam GI & Abdominal Exam: Normal Bowel Sounds (PEG DONE) - Rectal Exam Rectal Exam: NORMAL INSPECTION - Extremities Exam Extremities Exam: Full ROM, Normal Capillary Refill - Neurological Exam Neurological Exam: Abnormal Gait (TREMOR, AND SHE IS BED BOUND), Alert, Awake, CN II-XII Intact Assessment and Plan (1) PEG (percutaneous endoscopic gastrostomy) adjustment/replacement/removal Assessment & Plan: PEG INSERTED. PEG FEEDS IN PROGRESS Status: Acute (2) COPD (chronic obstructive pulmonary disease) Status: Acute (3) Diabetes mellitus Status: Chronic (4) Hypertension Status: Chronic (5) UTI (urinary tract infection) due to Enterococcus Status: Acute
[2017-02-13] MEDS: Albuterol-Ipratrop 3 mg / 0.5 (3 ml) UD INH SCH ×4 (02:04→19:36)
[2017-02-13] MEDS: guaiFENesin 200 mg/10 ml Syrup UD PO SCH (04:06)
[2017-02-13] MEDS: metroNIDAZOLE IV 500 mg/100 ml 500 MG/100 ML BAG IVPB SCH ×3 (05:07→22:28)
[2017-02-13] MEDS: (Novolin R) Insulin Human Regular 100 units/ml vial SC SCH ×4 (08:59→21:28)
[2017-02-13] MEDS: guaiFENesin 100 mg/5 ml Syrup UD PO SCH ×4 (08:59→21:28)
[2017-02-13 09:33] LABS: HEMOGLOBIN 10.6 g/dL (11.0-16.0); MEAN CELL VOLUME 84.6 fL (81.0-99.0); MEAN CORPUSCULAR HEMOGLOBIN 27.8 pg (27.0-31.0); MEAN CORPUSCULAR HGB CONC 32.9 g/dL (33.0-37.0); MEAN PLATELET VOLUME 6.3 fL (7.2-11.7); RBC 3.81 Mil/uL (3.80-5.20); RED CELL DISTRIBUTION WIDTH 18.6 % (11.5-14.5); WHITE BLOOD COUNT 7.8 K/uL (4.8-10.8)
[2017-02-13 09:50] LABS: GFR AFRICAN-AMERICAN > 60; GFR NON-AFRICAN AMERICAN > 60
[2017-02-13 09:51] LABS: BLOOD UREA NITROGEN 23 mg/dL (7-17); CALCIUM 9.3 mg/dl (8.6-10.4)
[2017-02-13] MEDS: Ciprofloxacin 400mg/200ml D5W 400 MG/200 ML BAG IVPB SCH ×2 (10:18→20:56)
[2017-02-13] MEDS ORDERED: PPN #14 IV ONE (10:50)
[2017-02-13] MEDS: Fluconazole IV 200mg/100 ml NS 100 ML IVPB SCH (16:29)
[2017-02-13] MEDS ORDERED: PPN IV SCH (18:00)
[2017-02-13] MEDS ORDERED: Acetaminophen 650mg/20.3ml solution UD GT PRN (18:15)
[2017-02-13] MEDS: Lidocaine 5% Patch TD SCH (19:41)
--- NOTE | 2017-02-13 21:48 | CP.PCM.PN ---
Subjective - Date & Time of Evaluation Date of Evaluation: 02/13/17 Time of Evaluation: 21:00 - Subjective Subjective: pt seen and examined, s/p replacemnt of gastrostomy tube, on nebulizer treatment , wounds healing on antibiotics Objective - Vital Signs/Intake and Output Vital Signs (last 24 hours): Temp Pulse Resp BP Pulse Ox 98.8 F 81 20 154/70 H 96 02/13/17 16:04 02/13/17 16:04 02/13/17 16:04 02/13/17 16:04 02/13/17 16:04 Intake and Output: 02/13/17 02/14/17 18:59 06:59 Intake Total 604 328 Balance 604 328 - Medications Medications: Current Medications Acetaminophen (Tylenol 650mg/20.3ml Solution Ud) 650 mg GT Q6 PRN PRN Reason: Pain, moderate (4-7) Albuterol/Ipratropium (Duoneb 3 Mg/0.5 Mg (3 Ml) Ud) 3 ml INH RQ6 [facility] Last Admin: 02/13/17 19:36 Dose: 3 ml Aspirin (Aspirin Chewable) 81 mg PO DAILY [facility] Last Admin: 02/13/17 10:18 Dose: 81 mg Carbidopa/Levodopa (Sinemet) 1 tab PO Q8 [facility] Last Admin: 02/13/17 21:30 Dose: 1 tab Famotidine (Pepcid) 40 mg IVP DAILY [facility] Last Admin: 02/13/17 10:18 Dose: 40 mg Guaifenesin (Robitussin) 200 mg PO Q4H [facility] Last Admin: 02/13/17 21:28 Dose: 200 mg Metronidazole (Flagyl) 500 mg in 100 mls @ 100 mls/hr IVPB Q8H [facility] Last Admin: 02/13/17 13:39 Dose: 100 mls/hr Ciprofloxacin (Cipro 400mg/200ml Dsw) 400 mg in 200 mls @ 133 mls/hr IVPB Q12H [facility] Last Admin: 02/13/17 20:56 Dose: 133 mls/hr Fluconazole (Diflucan Iv 200 Mg/100 Ml Ns) 100 mls @ 100 mls/hr IVPB Q24H [facility] Last Admin: 02/13/17 16:29 Dose: 100 mls/hr Insulin Human Regular (Novolin R) 0 unit SC ACHS [facility] PRN Reason: Protocol Last Admin: 02/13/17 21:28 Dose: Not Given Lidocaine (Lidoderm) 1 ea TD DAILY [facility] Last Admin: 02/13/17 19:41 Dose: 1 ea Nitroglycerin (Nitro-Bid 2% Oint) 1 ea TOP Q6 PRN PRN Reason: for SYSTOLIC BP ABOVE 160 Ondansetron HCl (Zofran Inj) 4 mg IVP Q6H PRN PRN Reason: Nausea/Vomiting Last Admin: 02/13/17 16:25 Dose: 4 mg - Labs Labs: 02/13/17 09:28 02/13/17 09:28 PT 12.2 SECONDS (9.7-12.2) 02/05/17 11:42 INR 1.1 02/05/17 11:42 APTT 21 SECONDS (21-34) 02/05/17 11:42 - Constitutional Appears: No Acute Distress - Head Exam Head Exam: ATRAUMATIC, NORMAL INSPECTION, NORMOCEPHALIC - Respiratory Exam Respiratory Exam: Clear to Ausculation Bilateral, NORMAL BREATHING PATTERN - Cardiovascular Exam Cardiovascular Exam: REGULAR RHYTHM, +S1, +S2. absent: Murmur - GI/Abdominal Exam GI & Abdominal Exam: Soft, Normal Bowel Sounds. absent: Tenderness Assessment and Plan (1) PEG (percutaneous endoscopic gastrostomy) adjustment/replacement/removal Status: Acute (2) COPD (chronic obstructive pulmonary disease) Status: Acute (3) Diabetes mellitus Status: Chronic (4) Hypertension Status: Chronic (5) UTI (urinary tract infection) due to Enterococcus Status: Acute
--- NOTE | 2017-02-13 23:30 | CP.PCM.PN ---
Subjective - Date & Time of Evaluation Date of Evaluation: 02/13/17 Time of Evaluation: 23:30 - Subjective Subjective: CHIEF COMPLAINTS TODAY : TEMP 98.4 COMFORTABLE s/p REINSERTION OF PEG 02/12/17. s/p PEG removal 02/06/17 ROS. HEENT : N. Resp : No SOB wheezing, cough Cardio : No CP, PND orthopnea GI : No abd. Pain, n/v S/P PEG REMOVAL .DRESSING DRY WOUND HEALING . NEW PEG IN PLACE. 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 Musculoskel : N Ext. : Pedal pulses intact, no edema or calf pain Derm : N Psych : N. PE. Pt. is alert awake in no distress. V.S As noted in the chart Head ,ear nose,throat and eyes : Normal. Neck : Supple with normal carotids. Lungs: Clear air entry. Heart : S1 & S2 normal . . No murmur. S4 + Abd : Soft non tender with normal bowel sounds.S/P PEG REMOVAL .DRESSING IN PLACE. WOUND HEALING. NEW PEG IN PLACE Neuro : Moves all ext. with no localized deficit. Ext : No edema with intact pulses. Neg. calf tenderness Derm : No rashes or decubitus ulcer. Radiology/Labs . REVIEWED URINE CULTURES REPEAT +VE CANDIDUREA. Asssessment : S/P NEW PEG INSERTION 02/12/17. GRAM-POSITIVE BACTEREMIA. 1:2 SETS ( SCN ? CONTAMINANT ) CANDIDUREA S/P VRE - UROSEPSIS S/P FOLY REMOVAL. ANEMIA. S/P PEG REMOVAL/INFECTED STOMA. D.MELLITUS. HYPERTENSION. Plan : START IV DIFLUCAN 200MG IVPB [id number]. 02/12/17. X 5DAYS LOCAL WOUND CARE. DC iv FLAGYL 500 EVERY 8 HOURLY 02/06/17 -AM-02/13/17 DC iv CIPRO 400 EVERY 12 HOURLY02/06/17-AM- 02/13/17 PER GI FEEDINGS Objective - Vital Signs/Intake and Output Vital Signs (last 24 hours): Temp Pulse Resp BP Pulse Ox 98.8 F 81 20 154/70 H 96 02/13/17 16:04 02/13/17 16:04 02/13/17 16:04 02/13/17 16:04 02/13/17 16:04 Intake and Output: 02/13/17 02/14/17 18:59 06:59 Intake Total 604 428 Balance 604 428 - Medications Medications: Current Medications Acetaminophen (Tylenol 650mg/20.3ml Solution Ud) 650 mg GT Q6 PRN PRN Reason: Pain, moderate (4-7) Albuterol/Ipratropium (Duoneb 3 Mg/0.5 Mg (3 Ml) Ud) 3 ml INH RQ6 [facility] Last Admin: 02/13/17 19:36 Dose: 3 ml Aspirin (Aspirin Chewable) 81 mg PO DAILY [facility] Last Admin: 02/13/17 10:18 Dose: 81 mg Carbidopa/Levodopa (Sinemet) 1 tab PO Q8 [facility] Last Admin: 02/13/17 21:30 Dose: 1 tab Famotidine (Pepcid) 40 mg IVP DAILY [facility] Last Admin: 02/13/17 10:18 Dose: 40 mg Guaifenesin (Robitussin) 200 mg PO Q4H [facility] Last Admin: 02/13/17 21:28 Dose: 200 mg Metronidazole (Flagyl) 500 mg in 100 mls @ 100 mls/hr IVPB Q8H [facility] Last Admin: 02/13/17 22:28 Dose: 100 mls/hr Ciprofloxacin (Cipro 400mg/200ml Dsw) 400 mg in 200 mls @ 133 mls/hr IVPB Q12H [facility] Last Admin: 02/13/17 20:56 Dose: 133 mls/hr Fluconazole (Diflucan Iv 200 Mg/100 Ml Ns) 100 mls @ 100 mls/hr IVPB Q24H [facility] Last Admin: 02/13/17 16:29 Dose: 100 mls/hr Insulin Human Regular (Novolin R) 0 unit SC ACHS [facility] PRN Reason: Protocol Last Admin: 02/13/17 21:28 Dose: Not Given Lidocaine (Lidoderm) 1 ea TD DAILY [facility] Last Admin: 02/13/17 19:41 Dose: 1 ea Nitroglycerin (Nitro-Bid 2% Oint) 1 ea TOP Q6 PRN PRN Reason: for SYSTOLIC BP ABOVE 160 Ondansetron HCl (Zofran Inj) 4 mg IVP Q6H PRN PRN Reason: Nausea/Vomiting Last Admin: 02/13/17 16:25 Dose: 4 mg - Labs Labs: 02/13/17 09:28 02/13/17 09:28 PT 12.2 SECONDS (9.7-12.2) 02/05/17 11:42 INR 1.1 02/05/17 11:42 APTT 21 SECONDS (21-34) 02/05/17 11:42 Assessment and Plan (1) UTI (urinary tract infection) Status: Acute (2) PEG (percutaneous endoscopic gastrostomy) adjustment/replacement/removal Status: Acute (3) Diabetes mellitus Status: Chronic (4) Hypertension Status: Chronic (5) Anemia Status: Acute
[2017-02-14] MEDS: Albuterol-Ipratrop 3 mg / 0.5 (3 ml) UD INH SCH ×3 (01:10→15:45)
[2017-02-14] MEDS: guaiFENesin 100 mg/5 ml Syrup UD PO SCH ×3 (01:35→10:35)
[2017-02-14] MEDS: metroNIDAZOLE IV 500 mg/100 ml 500 MG/100 ML BAG IVPB SCH ×2 (06:09→14:10)
[2017-02-14] MEDS: (Novolin R) Insulin Human Regular 100 units/ml vial SC SCH ×3 (08:04→17:06)
[2017-02-14] MEDS: Ciprofloxacin 400mg/200ml D5W 400 MG/200 ML BAG IVPB SCH (08:22)
[2017-02-14] MEDS: Lidocaine 5% Patch TD SCH (10:31)
[2017-02-14] MEDS ORDERED: PPN IV SCH (11:00)
[2017-02-14] MEDS: guaiFENesin 200 mg/10 ml Syrup UD PO SCH ×2 (14:09→16:56)
--- NOTE | 2017-02-14 14:13 | CP.PCM.PN ---
Subjective - Date & Time of Evaluation Date of Evaluation: 02/14/17 Time of Evaluation: 11:00 - Subjective Subjective: Pt seen and examine dtoday , comfortable, NAD , denies any abdominal pain, N/V , tolerating peg feeding s/p peg tube replacement a febrile Objective - Vital Signs/Intake and Output Vital Signs (last 24 hours): Temp Pulse Resp BP Pulse Ox 97.3 F L 83 20 129/61 98 02/14/17 08:18 02/14/17 08:18 02/14/17 08:18 02/14/17 08:18 02/14/17 08:18 Intake and Output: 02/14/17 02/14/17 06:59 18:59 Intake Total 428 Balance 428 - Medications Medications: Current Medications Acetaminophen (Tylenol 650mg/20.3ml Solution Ud) 650 mg GT Q6 PRN PRN Reason: Pain, moderate (4-7) Albuterol/Ipratropium (Duoneb 3 Mg/0.5 Mg (3 Ml) Ud) 3 ml INH RQ6 [facility] Last Admin: 02/14/17 08:17 Dose: 3 ml Aspirin (Aspirin Chewable) 81 mg PO DAILY [facility] Last Admin: 02/14/17 10:31 Dose: 81 mg Carbidopa/Levodopa (Sinemet) 1 tab PO Q8 [facility] Last Admin: 02/14/17 14:09 Dose: 1 tab Famotidine (Pepcid) 40 mg IVP DAILY [facility] Last Admin: 02/14/17 10:31 Dose: 40 mg Guaifenesin (Robitussin) 200 mg PO Q4H [facility] Last Admin: 02/14/17 14:09 Dose: Not Given Metronidazole (Flagyl) 500 mg in 100 mls @ 100 mls/hr IVPB Q8H [facility] Last Admin: 02/14/17 14:10 Dose: 100 mls/hr Ciprofloxacin (Cipro 400mg/200ml Dsw) 400 mg in 200 mls @ 133 mls/hr IVPB Q12H [facility] Last Admin: 02/14/17 08:22 Dose: 133 mls/hr Fluconazole (Diflucan Iv 200 Mg/100 Ml Ns) 100 mls @ 100 mls/hr IVPB Q24H [facility] Last Admin: 02/13/17 16:29 Dose: 100 mls/hr Insulin Human Regular (Novolin R) 0 unit SC ACHS [facility] PRN Reason: Protocol Last Admin: 02/14/17 11:30 Dose: Not Given Lidocaine (Lidoderm) 1 ea TD DAILY [facility] Last Admin: 02/14/17 10:31 Dose: 1 ea Nitroglycerin (Nitro-Bid 2% Oint) 1 ea TOP Q6 PRN PRN Reason: for SYSTOLIC BP ABOVE 160 Ondansetron HCl (Zofran Inj) 4 mg IVP Q6H PRN PRN Reason: Nausea/Vomiting Last Admin: 02/13/17 16:25 Dose: 4 mg - Labs Labs: 02/13/17 09:28 02/13/17 09:28 PT 12.2 SECONDS (9.7-12.2) 02/05/17 11:42 INR 1.1 02/05/17 11:42 APTT 21 SECONDS (21-34) 02/05/17 11:42 - Constitutional Appears: Well, Non-toxic, No Acute Distress - ENT Exam ENT Exam: Mucous Membranes Moist - Respiratory Exam Respiratory Exam: Decreased Breath Sounds, NORMAL BREATHING PATTERN - Cardiovascular Exam Cardiovascular Exam: REGULAR RHYTHM, +S1, +S2 - GI/Abdominal Exam GI & Abdominal Exam: Soft, Normal Bowel Sounds Assessment and Plan - Assessment and Plan (Free Text) Assessment: a/p 86 YR OLD FEMALE ADMITTED FOR MALFUNCTIONING PEG TUBE , INFECTED SITE S/P PEG REMOVAL AND NEW PEG REPLACEMENT- 02/12 URINE- VRE- SENSITIVE TO TIGACIL AND PT CLINICALLY IMPROVED REPEAT URINE CULTURE- YEAST D/W DR. WINN , CLEARED TO DISCHARGE TO [facility] FROM [facility] AND CONTINUE DIFLUCAN X 5 DAYS DISCHARGE PLAN DISCUSSED WITH DR. DOVER, STABLE FOR DISCHARGE TO [facility] TODAY AN D DR. DOVER WILL FOLLOW THE PATIENT AT [facility] DISCHARGE PLAN DISCUSSED WITH PATIENT DAUGHTER AT BEDSIDE
[2017-02-14] MEDS: Fluconazole IV 200mg/100 ml NS 100 ML IVPB SCH (17:06)
[2017-02-14 17:35] VITALS: BP 142/60; PULSE 80; TEMP 98.9; O2SAT 95
--- NOTE | 2017-02-14 21:29 | CP.PCM.DIS ---
Provider - Provider Date of Admission: 02/05/17 17:09 Attending physician: Desmond Santiago MD Time Spent in preparation of Discharge (in minutes): 45 Diagnosis - Discharge Diagnosis (1) COPD (chronic obstructive pulmonary disease) Status: Acute (2) PEG (percutaneous endoscopic gastrostomy) adjustment/replacement/removal Status: Acute (3) Abdominal pain Status: Acute (4) COPD exacerbation Status: Acute Priority: High Hospital Course - Lab Results Lab Results: Micro Results 02/11/17 05:03 Urine,Catheterized Urine Culture - Final Yeast Species 02/06/17 13:29 Blood Blood Culture - Final NO GROWTH AFTER 5 DAYS 02/06/17 13:29 Blood Gram Stain - Final TEST NOT PERFORMED 02/06/17 14:00 Blood S.aureus & Coag-Neg Staph PNA FISH - Final 02/06/17 14:00 Blood Blood Culture - Final Coagulase Neg Staphylococcus 02/06/17 14:00 Blood Gram Stain - Final Most Recent Lab Values WBC 7.8 K/uL (4.8-10.8) 02/13/17 09:28 RBC 3.81 Mil/uL (3.80-5.20) 02/13/17 09:28 Hgb 10.6 g/dL (11.0-16.0) L 02/13/17 09:28 Hct 32.2 % (34.0-47.0) L 02/13/17 09:28 MCV 84.6 fL (81.0-99.0) 02/13/17 09:28 MCH 27.8 pg (27.0-31.0) 02/13/17 09:28 MCHC 32.9 g/dL (33.0-37.0) L 02/13/17 09:28 RDW 18.6 % (11.5-14.5) H 02/13/17 09:28 Plt Count 261 K/uL (130-400) 02/13/17 09:28 MPV 6.3 fL (7.2-11.7) L 02/13/17 09:28 Neut % (Auto) 60.3 % (50.0-75.0) 02/11/17 10:52 Lymph % (Auto) 28.0 % (20.0-40.0) 02/11/17 10:52 [place] % (Auto) 7.3 % (0.0-10.0) 02/11/17 10:52 Eos % (Auto) 3.5 % (0.0-4.0) 02/11/17 10:52 Baso % (Auto) 0.9 % (0.0-2.0) 02/11/17 10:52 Neut # 3.8 K/uL (1.8-7.0) 02/11/17 10:52 Lymph # 1.8 K/uL (1.0-4.3) 02/11/17 10:52 [place] # 0.5 K/uL (0.0-0.8) 02/11/17 10:52 Eos # 0.2 K/uL (0.0-0.7) 02/11/17 10:52 Baso # 0.1 K/uL (0.0-0.2) 02/11/17 10:52 PT 12.2 SECONDS (9.7-12.2) 02/05/17 11:42 INR 1.1 02/05/17 11:42 APTT 21 SECONDS (21-34) 02/05/17 11:42 Sodium 137 mmol/L (132-148) 02/13/17 09:28 Potassium 3.9 mmol/L (3.6-5.2) 02/13/17 09:28 Chloride 104 mmol/L (98-107) 02/13/17 09:28 Carbon Dioxide 27 mmol/L (22-30) 02/13/17 09:28 Anion Gap 11 (10-20) 02/13/17 09:28 BUN 23 mg/dL (7-17) H 02/13/17 09:28 Creatinine 0.5 MG/DL (0.7-1.2) L 02/13/17 09:28 Est GFR ( Amer) > 60 02/13/17 09:28 Est GFR (Non-Af Amer) > 60 02/13/17 09:28 POC Glucose (mg/dL) 113 mg/dL (65-110) H 02/14/17 17:05 Random Glucose 135 mg/dL (65-105) H 02/13/17 09:28 Calcium 9.3 mg/dl (8.6-10.4) 02/13/17 09:28 Total Bilirubin 0.5 mg/dL (0.2-1.3) 02/11/17 10:52 Direct Bilirubin 0.5 mg/dL (0.0-0.4) H 02/07/17 11:14 AST 24 U/L (14-36) 02/11/17 10:52 ALT 20 U/L (9-52) 02/11/17 10:52 Alkaline Phosphatase 75 U/L (38-126) 02/11/17 10:52 Total Protein 7.0 g/dL (6.3-8.3) 02/11/17 10:52 Albumin 2.9 g/dL (3.5-5.0) L 02/11/17 10:52 Globulin 4.1 gm/dL (2.2-3.9) H 02/11/17 10:52 Albumin/Globulin Ratio 0.7 (1.0-2.1) L 02/11/17 10:52 Urine Color Yellow (YELLOW) 02/11/17 08:06 Urine Clarity Clear (Clear) 02/11/17 08:06 Urine pH 6.0 (5.0-8.0) 02/11/17 08:06 Ur Specific [place] 1.006 (1.003-1.030) 02/11/17 08:06 Urine Protein Negative mg/dL (NEGATIVE) 02/11/17 08:06 Urine Glucose (UA) Normal mg/dL (Normal) 02/11/17 08:06 Urine Ketones Negative mg/dL (NEGATIVE) 02/11/17 08:06 Urine Blood Negative (NEGATIVE) 02/11/17 08:06 Urine Nitrate Negative (NEGATIVE) 02/11/17 08:06 Urine Bilirubin Negative (NEGATIVE) 02/11/17 08:06 Urine Urobilinogen Normal mg/dL (0.2-1.0) 02/11/17 08:06 Ur Leukocyte Esterase 3+ Eve/uL (Negative) H 02/11/17 08:06 Urine WBC (Auto) 23 /hpf (0-5) H 02/11/17 08:06 Urine RBC (Auto) 1 /hpf (0-3) 02/11/17 08:06 Ur Squamous Epith Cells < 1 /hpf (0-5) 02/11/17 08:06 Urine Bacteria Rare (<OCC) 02/11/17 08:06 Ur Yeast w Hyphae Rare /lpf (NEGATIVE) H 02/11/17 08:06 Urine Yeast (Budding) Many /hpf (NEGATIVE) H 02/11/17 08:06 Blood Type B NEGATIVE 02/07/17 16:06 Antibody Screen Positive 02/07/17 16:06 Antibody Identification Anti D 02/07/17 16:06 - Hospital Course Hospital Course: a/p 86 YR OLD FEMALE ADMITTED FOR MALFUNCTIONING PEG TUBE , INFECTED SITE S/P PEG REMOVAL AND NEW PEG REPLACEMENT- 02/12 URINE- VRE- SENSITIVE TO TIGACIL AND PT CLINICALLY IMPROVED REPEAT URINE CULTURE- YEAST D/W DR. WINN , CLEARED TO DISCHARGE TO [facility] FROM ID [facility] AND CONTINUE DIFLUCAN X 5 DAYS STABLE FOR DISCHARGE TO [facility] TODAY AN D DR. SANTIAGO WILL FOLLOW THE PATIENT AT [facility] DISCHARGE PLAN DISCUSSED WITH PATIENT DAUGHTER AT BEDSIDE Discharge Exam - Head Exam Head Exam: ATRAUMATIC, NORMAL INSPECTION, NORMOCEPHALIC - Eye Exam Eye Exam: EOMI, Normal appearance, PERRL Pupil Exam: NORMAL ACCOMODATION, PERRL - ENT Exam ENT Exam: Mucous Membranes Moist - Respiratory Exam Respiratory Exam: Clear to PA & Lateral, NORMAL BREATHING PATTERN, UNREMARKABLE - Cardiovascular Exam Cardiovascular Exam: REGULAR RHYTHM, +S1, +S2 - GI/Abdominal Exam GI & Abdominal Exam: Normal Bowel Sounds Discharge Plan - Discharge Medications Prescriptions: Fluconazole [Diflucan] 200 mg PEG DAILY 5 Days - Follow Up Plan Condition: STABLE Disposition: REHAB FACILITY/REHAB UNIT Instructions: Fluconazole (By mouth), Urinary Tract Infection in Women (DC), 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 Santiago upon patient arrival to the facility Continue diflucan x 5 days continue all other medication as per Med. Rec.
--- NOTE | 2017-02-25 12:10 | CON ---
DATE: 02/04/2017 HISTORY OF PRESENT ILLNESS: I was called for the GI consultation by the admitting MD. The patient is seen and fully examined on 02/04/2017 as requested by the admitting medical staff. The entire chart is reviewed including, but not limited to the most recent lab and radiologic study results, current and previous medication list, current and previous medical events as well as allergies to medication list. Case discussed at length with the admitting staff. It has to be mention that a written short consultation sheet was placed in the chart due to the mechanical defect of the dictation system at that time, for which this consultation sheet is dictating now. This is an 86-year-old female known case for me from previous admission was admitted to the hospital through the emergency room after being transferred from a snf due to *------* malfunction of recently inserted PEG tube, was what reportedly recently as mucoid discharge from the site of the recently inserted PEG tube. No other reverted significant complaint. No chills, fever, chest pain, palpitation or significant report of shortness of breath. After being admitted to the hospital, however, the patient was found to have very low hemoglobin of 7.7 with hematocrit 23.5, but normal white blood cells with low potassium of 3.5, a low creatinine of 0.6 with mildly elevated blood glucose level 109. PAST MEDICAL HISTORY: Including mainly, but not limited to: 1. Hypertension. 2. Congestive heart failure with hyperlipidemia. 3. Known history of Parkinsonian disease and dementia. 4. Pneumonia, pulmonary embolus. 5. Osteoarthritis. 6. *------* back pain syndrome with back surgery done several years ago. 7. COPD by history. 8. Anemia by history. 9. Peptic ulcer disease. CURRENT MEDICATION: Medication list are reviewed. FAMILY HISTORY: Unknown. SOCIAL HISTORY: No known recent history of cigarette smoking or alcohol intake. ALLERGIES: ALLERGIES TO MEDICATION UNCLEAR. PHYSICAL EXAMINATION GENERAL: An 86-year-old female somewhat poorly communicating or responding to verbal stimuli. Seen in the presence of her family members at bedside. VITAL SIGNS: The patient is afebrile with pulse of 86, respiratory rate 20 to 22, with blood pressure 138/72. HEENT: Showed pale, dry oral mucous membrane. Nonicteric sclera. LYMPH NODE: No lymphadenitis or lymphadenopathy. LUNGS: Scattered crepitation with decreased air entry at bases. HEART: Positive S1 and S2. ABDOMEN: Soft, bowel sounds are present with evidence of anterior abdominal cellulitis around the stoma of the previously inserted PEG. The PEG tube is not functioning, raising the question of displacement of the head of the PEG between anterior abdominal wall and gastric wall, most likely. No mass or organomegaly. No rebound tenderness or guarding. EXTREMITIES: With lower extremity mild edematous changes. No clubbing or cyanosis. NEUROLOGIC: No neurological deficits, sensory or motor. Peripheral pulses are present, but week bilaterally. IMPRESSION: 1. Percutaneous endoscopic gastrostomy malfunction. 2. Anterior abdominal wall cellulitis. 3. Malnutrition. 4. Failure to thrive with recently reported dysphasia. 5. Anemia most likely secondary to chronic disease versus gastrointestinal blood loss. 6. Known history of peptic ulcer disease. 7. Hypertension. 8. Osteoarthritis. 9. Congestive heart failure. 10. Chronic obstructive pulmonary disease. 11. Parkinsonian disease. 12. Hyperlipidemia as well as pneumonia with dementia. SUGGESTIONS: 1. Agree with your plan. 2. Peripheral hyperalimentation. 3. IV antibiotics including Flagyl. 4. ID consultation. 5. Endoscopic evaluation of upper GI tract for the site of the malfunction of tube and both for removal of PEG tube, with reinsertion of a new PEG with the patient more stable clinically and after complete closure of the stoma of the PEG. 6. Correct any underlying coagulopathy. 7. Blood culture x2. Thank you for letting me participate in your patient's case management. Further recommendation and evaluation to follow. It has to be mention that this case again discussed with the patient's family including mainly her son for over one hour during my initial consultation. Monica Varma MD cc:
== END 2017-02-14 18:22 | DRG 327 ==
LOC: C.ER 11:38 → C.9E 15:09 → C.6T 20:13 → OBSVTOIN 02-05 17:09 → C.6T 02-06 13:34 → C.5T 02-12 11:35
PROVIDERS: ADMIT Internal Medicine; ATTEND Internal Medicine
PROC: 0DH63UZ Insertion of Feeding Device into Stomach, Percutaneous Approach (ICD-10-PCS; 2017-02-12)
PROC: 0DJ08ZZ Inspection of Upper Intestinal Tract, Via Natural or Artificial Opening Endoscopic (ICD-10-PCS; 2017-02-12)
PROC: 0DP64UZ Removal of Feeding Device from Stomach, Percutaneous Endoscopic Approach (ICD-10-PCS; principal; 2017-02-12 10:50)
DX: K94.23 Gastrostomy malfunction (principal); J44.1 Chronic obstructive pulmonary disease with (acute) exacerbation; E46 Unspecified protein-calorie malnutrition; G20 Parkinson's disease; I11.0 Hypertensive heart disease with heart failure; I50.9 Heart failure, unspecified; N39.0 Urinary tract infection, site not specified; B95.2 Enterococcus as the cause of diseases classified elsewhere; E11.9 Type 2 diabetes mellitus without complications; Z96.653 Presence of artificial knee joint, bilateral; E78.00 Pure hypercholesterolemia, unspecified; K44.9 Diaphragmatic hernia without obstruction or gangrene; K21.0 Gastro-esophageal reflux disease with esophagitis; D64.9 Anemia, unspecified; E78.5 Hyperlipidemia, unspecified; R62.7 Adult failure to thrive; Z86.711 Personal history of pulmonary embolism; Y83.3 Surgical operation with formation of external stoma as the cause of abnormal reaction of the patient, or of later complication, without mention of misadventure at the time of the procedure; Z88.0 Allergy status to penicillin